=== PATIENT | female | born 1965 | race Caucasian/White ===

== ENCOUNTER 2017-07-24 11:55 | Emergency (ER) | payer BC, OTHER ==
[~2017-07-24] VITALS: Ht 170.2 cm; Wt 125.0 kg
[~2017-07-24 11:55] MED LIST: FURO-85 PO; INSU1INJ16 SC; INSU1INJ16 SQ; INSU1INJ17 SQ; INSU70IN2 SC; PRLSR20 PO
[2017-07-24 12:02] VITALS: TEMP 37.2; Ht 170.2 cm; Wt 125.0 kg
[2017-07-24] MEDS ORDERED: MoRPHine SULFATE 10 MG/ML CARP/VIAL IM STA (12:22)
--- NOTE | 2017-07-24 13:34 | EMERGENCY ROOM VISIT NOTE ---
ED Visit Note First contact with patient: 12:12 CHIEF COMPLAINT: "Back pain". HISTORY OF PRESENT ILLNESS: This 51-year-old female patient presents to the emergency department via private vehicle accompanied by male complaining of pain in the low back which began . The pain was gradual in onset, is now constant and worse with movement. The patient notes the pain as sharp and a 10/10. The patient states that she was recently admitted Wednesday night to [facility] to rule out problems with her heart. She notes that she had an echocardiogram which was normal and CT scans. She states that she thinks that may be from laying in the gurney she now has low back pain. The patient denies any loss of control of their bowel or bladder functions. There has been no leg numbness or weakness, and no change in sensation. No nausea or vomiting or abdominal pain. No chest pain or shortness of breath. The patient has no had prior back injuries. No dysuria or increased urinary frequency. REVIEW OF SYSTEMS: A review of systems was performed with positives and pertinent negatives listed in the history of present illness. All other systems were reviewed and are negative. ALLERGIES: None MEDICATIONS: As noted below PMH: Recent illness SOCIAL HISTORY: Patient lives locally. PHYSICAL EXAM: VITALS: Vitals are noted on the nurse's note and reviewed by myself. Vital signs stable. Stable. Afebrile. GENERAL: 51-year-old female, in no acute distress, nondiaphoretic, well- developed well-nourished. SKIN: The skin was without rashes, erythema, edema, or bruising. NECK: Supple without nuchal rigidity. No cervical spine tenderness. No paraspinous muscle tenderness. HEART: Regular rate and rhythm without murmurs gallops or rubs. LUNGS: Clear to auscultation bilaterally without wheezes, rales or rhonchi. ABDOMEN: Positive bowel sounds x 4. Normal tympanic percussion. Soft, nontender, without masses or organomegaly. Miles sign negative. MUSCULOSKELETAL: No muscle atrophy, erythema, or edema noted of the back. There is no tenderness over the lumbar spinous processes. There is are tenderness over the paraspinous muscles to the left. There is no tenderness over the thoracic spine or paraspinous muscles. There are left inferior lumbar muscle spasms present. The patient is slow to move around with maximum tenderness with left inferior lumbar paraspinous musculature. NEURO: Deep tendon reflexes 2+ in the lower extremities. Strength 5/5 and equal in the bilateral lower extremities. EMERGENCY DEPARTMENT COURSE: Patient was seen and evaluated as above. She presents to us today with low back pain. She is nontoxic on exam. She states that she is here looking for pain relief secondary to her back pain. She believes it is from laying a hospital bed for 2 days. This certainly sounds reasonable as her pain is reproducible on exam with tenderness in the left lower paraspinous musculature. There is no abdominal pain or urinary symptoms. She had a full workup for her heart just 2 days ago. She was offered imaging as well as blood work but decided to manage just the pain at this time. She was given morphine IM. She was reevaluated and feeling better. She appears stable from patient management. She'll be given a short prescription for oxycodone and is to observe conservative measures and follow with her family doctor or return if worsening. She was educated upon management, educated upon worrisome symptoms in which to return, had questions answered prior to discharge , and was discharged home in good condition. The narcotics were chosen as she has already used [id number] medicine without relief. In evaluation treatment this patient the following differential diagnoses were obtained: Lumbar strain, fracture, dislocation, AAA, abdominal etiologies, cauda equina syndrome, among others. No red flags in the [place] drug monitoring system. Problem List Medical Problems: (1) Benign hypertension Status: Chronic (2) Cholecystectomy Status: Resolved (3) Diabetes mellitus type 2 Status: Chronic (4) Exchange of intraocular lens Status: Resolved (5) Gastroesophageal reflux disease Status: Chronic (6) History of - section Status: Resolved (7) History of - tubal ligation Status: Resolved Current/Historical Medications Scheduled Insulin Human NPH (Novolin N), 34 UNITS SQ QAM Insulin Human NPH (Novolin N), 46 UNITS SQ HS Insulin Human Regular (Novolin R), 29 UNITS SQ QAM Insulin Human Regular (Novolin R), 22 UNITS SQ DAILY@1200 Insulin Human Regular (Novolin R), 20 UNITS SQ HS Metoprolol Tartrate (Lopressor), 50 MG PO BID Omeprazole (Prilosec), 20 MG PO DAILY Scheduled PRN Oxycodone Ir (Roxicodone Ir), 1-2 TAB PO Q4H PRN for Pain Allergies Coded Allergies: No Known Allergies (Verified , 07/24/17) Vital Signs Date Time Temp Pulse Resp B/P (MAP) Pulse Ox O2 Delivery O2 Flow Rate FiO2 07/24/17 13:41 79 18 122/68 92 Room Air 07/24/17 12:02 37.2 84 18 101/61 97 Room Air Medications Administered Medications (Trade) Dose Ordered Sig/Santos Route Start Time Stop Time Status Last Admin Dose Admin Morphine Sulfate (MoRPHine SULFATE INJ) 10 mg NOW STAT IM 07/24/17 12:22 07/24/17 12:23 DC 07/24/17 12:32 10 MG Departure Information Impression Primary Impression: Strain of lumbar region Dispostion Home / Self-Care Condition GOOD Prescriptions Oxycodone Ir (Roxicodone Ir) 5 Mg Tab 1-2 TAB PO Q4H Y for Pain, #18 TAB For Initial Treatment Prov: Joaquim Connolly PA-C 07/24/17 Referrals Yosavny Sotomayor M.D.([facility]) (PCP) Patient Instructions My [facility] Additional Instructions You have been treated in the Emergency Department for Back Pain. You have received pain medicine in the emergency department which impairs your ability to operate a vehicle. It is illegal for you to drive after receiving these medicines. You have been prescribed Oxy IR to be used for pain control. This is a narcotic medication. You cannot drive or consume alcohol while on this medicine. This medicine should only be used for pain that cannot be controlled with over-the- counter pain medicines. For pain control, you can use the following [id number]-ebtbswl medicines: - Regular strength (325mg/tab) Tylenol (acetaminophen) 2 tabs every 4-6 hours as needed. Do not exceed 12 tablets in a 24 hour period. Avoid taking more than 3 grams (3000 mg) of Tylenol per day. This includes any other sources of acetaminophen you may take on a regular basis. - Regular strength (200 mg/tab) Advil (ibuprofen) 1-2 tabs every 4-6 hours as needed. Do not exceed a dose of 3200 mg per day. (if no kidney problems) If this is an acute injury, ice can be applied to the area of pain for the first 3 days to help decrease pain and inflammation. After the first 3 days, a heating pad can be used over the area for continued soothing relief. You should schedule a follow-up appointment in 2-3 days with your Primary Care Provider for further evaluation and treatment of your back pain. Return to the Emergency Department if your current symptoms worsen despite treatment course outlined above, or if you develop any of the following symptoms : intractable pain despite aforementioned treatment course, loss of control of your bowel or bladder, numbness or tingling in your groin, or development of a fever.
[2017-07-24] MEDS ORDERED: OXYC1TAB3 PO (13:35)
[2017-07-24 13:41] VITALS: BP 122/68; PULSE 79; O2SAT 92
[2017-07-27] MEDS ORDERED: INSP SQ ×2 (12:16)
[2017-07-27] MEDS ORDERED: NVLRB SQ (12:16)
[2017-07-27] MEDS ORDERED: NVLNI SQ ×2 (12:16)
[2017-07-27] MEDS ORDERED: OMEP20CA9 PO (12:17)
[2017-07-27] MEDS ORDERED: METO-551 PO (12:22)
== END 2017-07-24 13:50 | disposition home or self-care (01) ==
LOC: C.EDB 11:58 → C.EDD 13:50
DX: S39.012A Strain of muscle, fascia and tendon of lower back, initial encounter (principal); X58.XXXA Exposure to other specified factors, initial encounter; I10 Essential (primary) hypertension; E11.9 Type 2 diabetes mellitus without complications; Z90.49 Acquired absence of other specified parts of digestive tract; K21.9 Gastro-esophageal reflux disease without esophagitis; Z98.51 Tubal ligation status; Z79.4 Long term (current) use of insulin; Z79.899 Other long term (current) drug therapy

== ENCOUNTER 2017-07-27 18:34 | Inpatient (IN) | payer OTHER ==
[~2017-07-27] VITALS: Ht 170.2 cm; Wt 132.3 kg
[~2017-07-27 18:34] MED LIST changes: -FURO-85 PO; +INSP SQ; -INSU1INJ16 SC; -INSU1INJ16 SQ; -INSU1INJ17 SQ; -INSU70IN2 SC; +METO-551 PO; +NVLNI SQ; +NVLRB SQ; +OMEP20CA9 PO; +OXYC1TAB3 PO; -PRLSR20 PO
[2017-07-27] MEDS ORDERED: ONDANSETRON INJ 2 MG/ML 2 ML VIAL IV STA (19:17)
[2017-07-27] MEDS ORDERED: KETOROLAC TROMETHAMINE 30 MG/ML VIAL IV STA (19:17)
[2017-07-27] MEDS ORDERED: LIDODERM (LIDOCAINE) PATCH 5% TD STA (19:17)
[2017-07-27] MEDS ORDERED: HYDROmorphone INJ 1 MG/ML SYR IV STA (19:17)
[2017-07-27] MEDS ORDERED: ALBUTEROL 0.083% NEBU SOLN 3 ML VIAL INH STA (19:17)
--- NOTE | 2017-07-27 19:25 | EMERGENCY ROOM VISIT NOTE ---
History Report prepared by Clarke: Don Trivedi Under the Supervision of: Dr. Keyshawn Nettles M.D. First contact with patient: 19:12 Chief Complaint: BACK PAIN Stated Complaint: BACK AND LEG PAINB History of Present Illness The patient is a 51 year old female who presents to the Emergency Room with complaints of worsening back pain that began on Wednesday morning, 4 days prior to arrival. The patient states that her symptoms began 7 days ago wit flu-like symptoms and a persistent cough. She went to [facility] and was negative for influenza/pneumonia. When her back pain first started she believed it was secondary to the severity of her cough. However, as of today the pain has worsened significantly and she is now experiencing the pain radiating down her legs. She came to the ED on Wednesday for the back pain and was given Morphine and an Oxycodone homepack. This prescription is gone at this time. 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 Review of Systems See HPI for pertinent positives & negatives. A total of 10 systems reviewed and were otherwise negative. Past Medical & Surgical Medical Problems: (1) Benign hypertension (2) Cholecystectomy (3) Diabetes mellitus type 2 (4) Exchange of intraocular lens (5) Gastroesophageal reflux disease (6) History of - section (7) History of - tubal ligation Family History CHF GRANDFATHER Diabetes mellitus FATHER MOTHER Hypertension FATHER GRANDFATHER [place] GRANDFATHER Social History Smoking Status: Former Smoker Marital Status: Housing Status: lives with family Occupation Status: disabled Current/Historical Medications Scheduled Insulin Human NPH (Novolin N), 34 UNITS SQ QAM Insulin Human NPH (Novolin N), 46 UNITS SQ HS Insulin Human Regular (Novolin R), 29 UNITS SQ QAM Insulin Human Regular (Novolin R), 22 UNITS SQ DAILY@1200 Insulin Human Regular (Novolin R), 28 UNITS SQ HS Levothyroxine Sodium (Levothyroxine Sodium), 125 MCG PO DAILY Losartan Potassium (Cozaar), 25 MG PO DAILY Metoprolol Tartrate (Lopressor), 50 MG PO BID Omeprazole (Prilosec), 20 MG PO DAILY Allergies Coded Allergies: No Known Allergies (Verified , 07/27/17) Physical Exam Vital Signs Date Time Temp Pulse Resp B/P (MAP) Pulse Ox O2 Delivery O2 Flow Rate FiO2 07/27/17 22:00 37.1 91 18 104/64 95 Nasal Cannula 2.0 07/27/17 21:13 92 18 123/54 92 Nasal Cannula 2.0 07/27/17 18:46 39.4 108 22 137/66 92 Room Air Physical Exam GENERAL: Patient is a healthy-appearing well-nourished female. HEAD: Normocephalic atraumatic EYES: Ocular movements intact pupils equal and react to light OROPHARYNX mucous membranes are moist no exudates present no erythema or edema present NECK: Supple no nuchal rigidity CHEST: Good equal expansion LUNGS: Clear and equal to auscultation CARDIAC: Normal S1 and S2 ABDOMEN: Soft nontender no guarding BACK: There is midline tenderness over the L5 region. No other tenderness. EXTREMITIES: No pain upon palpation normal muscle strength in all groups no clubbing cyanosis or edema. There is a walking boot over the left foot. NEURO: Patient is following commands and answering questions appropriately. Alert and oriented x3 Cranial Nerves 2-12 grossly intact Medical Decision & Procedures ER Provider Diagnostic Interpretation: CT SCAN OF THE ABDOMEN AND PELVIS WITHOUT CONTRAST CLINICAL HISTORY: Generalized pain. Possible metastatic disease. COMPARISON STUDY: No previous studies for comparison. TECHNIQUE: CT scan of the abdomen and pelvis was performed from the lung bases to the proximal femurs. Images are reviewed in the axial, sagittal, and coronal planes. IV contrast was not administered for this examination. A dose lowering technique was utilized adhering to the principles of ALARA. CT DOSE: FINDINGS: Lower chest: There are dependent atelectatic changes. Liver: The unenhanced liver is normal in size, contour, and attenuation. There is no intrahepatic biliary ductal dilatation. Gallbladder: Surgically absent Spleen: Spleen is enlarged measuring 14.8 cm. No focal masses are visualized on this noncontrast study Pancreas: Unremarkable. Adrenal glands: Unremarkable. Kidneys: No renal, ureteral, or bladder calculi are visualized. Hypodense left renal lesions cannot be further characterized but statistically represent cysts. The largest measures 21 mm. Bowel: There are no transition zones indicate bowel obstruction. There is colonic diverticulosis. There are no acute peridiverticular inflammatory changes. The appendix appears normal. Peritoneum: There is no intraperitoneal free air or abdominal ascites. Vasculature: The abdominal aorta is normal in course and caliber. Adenopathy: Retroperitoneal aortocaval lymph nodes are the upper limits of normal in size Pelvic viscera: There is a 3 cm left ovarian cyst Skeletal structures: There is is a mixed lytic and sclerotic 24 mm L4 lesion. There is an 11 mm lytic L5 lesion. As a 5 mm sclerotic lesion within the L3 vertebra. IMPRESSION: 1. No evidence of bowel obstruction. No evidence of free air 2. No renal, ureteral, or bladder calculi identified 3. Mild splenomegaly 4. 24 mm mixed lytic and sclerotic lesion within the L4 vertebra. Schmorl's node versus 11 mm lytic lesion within the L5 vertebra. 5. Normal appendix. No evidence of acute diverticulitis. Electronically signed by: Calvin Love M.D. 07/28/2017 6:38 AM Dictated Date/Time: 07/28/2017 6:29 AM (CHEST) THORAX WITHOUT CT DOSE: 2874.78 mGy.cm HISTORY: Metastatic disease. Pain. evaluation for metastatic disease TECHNIQUE: Multiaxial CT images of the chest were performed without contrast. A dose lowering technique was utilized adhering to the principles of ALARA. COMPARISON: None. FINDINGS: Mild bibasilar dependent and platelike atelectatic change. No significant pulmonary nodularity. No significant mediastinal or hilar adenopathy with a lymph node within limitations of an unenhanced scan. IMPRESSION: Scattered basilar atelectatic change. Otherwise negative CT of the chest. The above report was generated using voice recognition software. It may contain grammatical, syntax or spelling errors. Electronically signed by: Eliceo Isidro M.D. 07/28/2017 6:33 AM Dictated Date/Time: 07/28/2017 6:32 AM SINGLE VIEW CHEST CLINICAL HISTORY: Dyspnea. FINDINGS: An AP, portable, upright chest radiograph is compared to study dated 10/06/2013. The examination is degraded by portable technique and patient rotation. The cardiomediastinal silhouette is unremarkable. There are low lung lungs with bibasilar atelectasis. The lungs and pleural spaces are otherwise clear. No pneumothorax is seen. The bony thorax is grossly intact. IMPRESSION: Low lung volumes with no acute cardiopulmonary abnormality. Electronically signed by: Russell Fernandez M.D. 07/27/2017 8:01 PM Dictated Date/Time: 07/27/2017 8:[address] SCAN OF THE LUMBAR SPINE WITHOUT IV CONTRAST CLINICAL HISTORY: Low back pain. No reported history of trauma. COMPARISON STUDY: No priors. TECHNIQUE: CT scan of the lumbar spine is performed from the lower thoracic spine to the sacrum. Images are reviewed in the axial, sagittal, and coronal planes. IV contrast was not administered for this examination. A dose lowering technique was utilized adhering to the principles of ALARA. CT DOSE: 1544.79 mGy.cm FINDINGS: The skeletal structures are osteopenic. There is no evidence of fracture or malalignment involving the lumbar spine. Vertebral body height and alignment are maintained. The transverse and spinous processes are intact. There is no evidence of spondylolysis. There are large osteolytic lesions identified involving the bodies of L4 and L5. The lesion in the body of L4 measures up to 2.5 cm. There is associated cortical destruction/breakthrough involving the posterior wall of the L4 vertebral body as well as the inferior endplate. The L5 lesion extends through the superior endplate. Although indeterminant, these lesions are highly concerning for bony metastatic disease. An indeterminant 6 mm sclerotic focus is identified in the body of L3. There is mild disc space narrowing seen at L4-L5. The remaining disc spaces are preserved. There is no evidence of large disc herniation by CT. The paraspinous soft tissues are within normal limits. The visualized sacrum and bony pelvis appear intact, noting sclerotic change at the sacroiliac joints. There is mild atherosclerotic calcification of the abdominal aorta. IMPRESSION: 1. There is no fracture or malalignment identified involving the lumbar spine. 2. Large destructive bony lesions are suggested in the bodies of L4 and L5 with associated cortical breakthrough. Although nonspecific, the appearance is highly concerning for bony metastatic disease. Correlation with the patient's medical/oncological history will be required, and correlation with any prior outside imaging studies such as abdominal CT would be useful for comparison purposes. Consider follow-up with a nuclear bone scan for further assessment. Dictated: 07/27/2017 9:04 PM Transcribed: 07/27/2017 9:34 PM [email or web address] Electronically signed by: Russell Fernandez M.D. 07/27/2017 9:43 PM Dictated Date/Time: 07/27/2017 9:04 PM Laboratory Results Test 07/27/17 19:40 07/27/17 19:45 07/27/17 21:00 Immature Granulocyte % (Auto) 1.2 % White Blood Count 8.26 K/uL (4.8-10.8) Red Blood Count 3.35 M/uL (4.2-5.4) Hemoglobin 10.2 g/dL (12.0-16.0) Hematocrit 29.5 % (37-47) Mean Corpuscular Volume 88.1 fL (80-100) Mean Corpuscular Hemoglobin 30.4 pg (25-34) Mean Corpuscular Hemoglobin Concent 34.6 g/dl (32-36) Platelet Count 223 K/uL (130-400) Mean Platelet Volume 10.0 fL (7.4-10.4) Neutrophils (%) (Auto) 76.9 % Lymphocytes (%) (Auto) 12.2 % Monocytes (%) (Auto) 8.0 % Eosinophils (%) (Auto) 1.5 % Basophils (%) (Auto) 0.2 % Neutrophils # (Auto) 6.35 K/uL (1.4-6.5) Lymphocytes # (Auto) 1.01 K/uL (1.2-3.4) Monocytes # (Auto) 0.66 K/uL (0.11-0.59) Eosinophils # (Auto) 0.12 K/uL (0-0.5) Basophils # (Auto) 0.02 K/uL (0-0.2) Immature Granulocyte # (Auto) 0.10 K/uL (0.00-0.02) Prothrombin Time 9.9 SECONDS (9.0-12.0) Prothromb Time International Ratio 0.9 (0.9-1.1) Lipase 55 U/L (73-393) Procalcitonin 0.64 ng/ml (0-0.5) Influenza Type A Antigen Neg for Influ A (NEG) Influenza Type B Antigen Neg for Influ B (NEG) Urine Color YELLOW Urine Appearance CLEAR (CLEAR) Urine pH 5.5 (4.5-7.5) Urine Specific [place] 1.012 (1.000-1.030) Urine Protein 3+ (NEG) Urine Glucose (UA) TRACE (NEG) Urine Ketones NEG (NEG) Urine Occult Blood 1+ (NEG) Urine Nitrite NEG (NEG) Urine Bilirubin NEG (NEG) Urine Urobilinogen NEG (NEG) Urine Leukocyte Esterase NEG (NEG) Urine WBC (Auto) 1-5 /hpf (0-5) Urine RBC (Auto) 0-4 /hpf (0-4) Urine Hyaline Casts (Auto) 5-10 /lpf (0-5) Urine Epithelial Cells (Auto) >30 /lpf (0-5) Urine Bacteria (Auto) NEG (NEG) Medications Administered Medications (Trade) Dose Ordered Sig/Santos Route Start Time Stop Time Status Last Admin Dose Admin Lidocaine (Lidoderm Patch 5%) 1 patch NOW STAT TD 07/27/17 19:17 07/27/17 19:22 DC 07/27/17 20:02 1 PATCH Ketorolac Tromethamine (Toradol Inj) 30 mg NOW STAT IV 07/27/17 19:17 07/27/17 19:22 DC 07/27/17 20:01 30 MG Hydromorphone HCl (Dilaudid Inj) 1 mg NOW STAT IV 07/27/17 19:17 07/27/17 19:22 DC 07/27/17 20:01 1 MG Albuterol Sulfate (Ventolin 0.083% 2.5MG/3ML Neb) 2.5 mg NOW STAT INH 07/27/17 19:17 07/27/17 19:22 DC 07/27/17 20:01 2.5 MG Ondansetron HCl (Zofran Inj) 4 mg NOW STAT IV 07/27/17 19:17 07/27/17 19:23 DC 07/27/17 20:01 4 MG Sodium Chloride 1,000 ml @ 999 mls/hr Q1H1M STAT IV 07/27/17 20:29 07/27/17 21:29 DC 07/27/17 21:26 999 MLS/HR Acetaminophen (Tylenol Tab) 650 mg Q4H PRN PO 07/27/17 22:15 08/26/17 22:14 07/28/17 23:58 650 MG ED Course 1912: Past medical records reviewed. The patient was evaluated in room B4. A complete history and physical examination was performed. 2149: I discussed the case with Dr. Carl Aldana. She will evaluate the patient for further treatment. Medical Decision Differential diagnosis: Etiologies such as musculoskeletal, disc herniation, fracture, aortic disease, metastatic disease, cord compression, discitis, infection, renal colic, gastrointestinal, acute exacerbation of chronic back pain, sciatica, cauda equina, as well as others were entertained. This is a 51-year-old female who presents emergency department complaining of back pain. The patient appears to be in acute renal failure and has lytic lesions to her spine. I did discuss the case with the hospitalist service who agreed to admit the patient. Patient was in agreement with the treatment plan. Medication Reconcilliation Current Medication List: was personally reviewed by me Blood Pressure Screening Patient's blood pressure: Normal blood pressure Consults Time Called: 2139 Consulting Physician: Dr. Carl Aldana Returned Call: 2149 I discussed the case with Dr. Carl Aldana. She will evaluate the patient for further treatment. Impression Primary Impression: Acute renal failure Additional Impression: Back pain Scribe Attestation The scribe's documentation has been prepared under my direction and personally reviewed by me in its entirety. I confirm that the note above accurately reflects all work, treatment, procedures, and medical decision making performed by me. Departure Information Dispostion Being Evaluated By Hospitalist Referrals Yosvany Sotomayor M.D. ([facility]) (PCP) Patient Instructions My [facility] Problem Qualifiers Primary Impression: Acute renal failure Acute renal failure type: unspecified Qualified Codes: N17.9 - Acute kidney failure, unspecified Additional Impression: Back pain Back pain location: low back pain Chronicity: acute Back pain laterality: unspecified Sciatica presence: unspecified whether sciatica present Qualified Codes: M54.5 - Low back pain
[2017-07-27] MEDS ORDERED: LOSA1TAB PO (19:56)
[2017-07-27] MEDS ORDERED: LEVO125T5 PO (19:56)
[2017-07-27 20:02] LABS: BASO % 0.2 %; BASO ABS # 0.02 K/uL (0-0.2); EOS % 1.5 %; EOS ABS # 0.12 K/uL (0-0.5); HEMATOCRIT 29.5 % (37-47); HEMOGLOBIN 10.2 g/dL (12.0-16.0); LYMPH % 12.2 %; LYMPH ABS # 1.01 K/uL (1.2-3.4); MEAN CELL VOLUME 88.1 fL (80-100); MEAN CORPUSCULAR HEMOGLOBIN 30.4 pg (25-34); MEAN CORPUSCULAR HGB CONC 34.6 g/dl (32-36); MONO ABS # 0.66 K/uL (0.11-0.59); NEUT % 76.9 %; NEUT ABS # 6.35 K/uL (1.4-6.5); PLATELET COUNT 223 K/uL (130-400); RED CELL DISTRIBUTION WIDTH CV 14.3 % (11.5-14.5); RED CELL DISTRIBUTION WIDTH SD 46.1 fL (36.4-46.3); WHITE BLOOD COUNT 8.26 K/uL (4.8-10.8)
--- NOTE | 2017-07-27 20:02 | DIAGNOSTIC IMAGING REPORT ---
SINGLE VIEW CHEST CLINICAL HISTORY: Dyspnea. FINDINGS: An AP, portable, upright chest radiograph is compared to study dated 10/06/2013. The examination is degraded by portable technique and patient rotation. The cardiomediastinal silhouette is unremarkable. There are low lung lungs with bibasilar atelectasis. The lungs and pleural spaces are otherwise clear. No pneumothorax is seen. The bony thorax is grossly intact. IMPRESSION: Low lung volumes with no acute cardiopulmonary abnormality. Electronically signed by: Russell Fernandez M.D. 07/27/2017 8:01 PM Dictated Date/Time: 07/27/2017 8:00 PM
[2017-07-27 20:21] LABS: ALBUMIN 2.2 gm/dl (3.4-5.0); CALCIUM 8.5 mg/dl (8.5-10.1); CREATININE 2.38 mg/dl (0.60-1.20); POTASSIUM 4.2 mmol/L (3.5-5.1)
[2017-07-27 20:24] LABS: TOTAL PROTEIN 7.5 gm/dl (6.4-8.2)
[2017-07-27] MEDS ORDERED: SODIUM CHLORIDE 0.9% 1000ML 1,000 ML IV STA (20:29)
[2017-07-27 20:43] LABS: INFLUENZA B ANTIGEN Neg for Influ B (NEG)
--- NOTE | 2017-07-27 21:34 | DIAGNOSTIC IMAGING REPORT ---
CT SCAN OF THE LUMBAR SPINE WITHOUT IV CONTRAST CLINICAL HISTORY: Low back pain. No reported history of trauma. COMPARISON STUDY: No priors. TECHNIQUE: CT scan of the lumbar spine is performed from the lower thoracic spine to the sacrum. Images are reviewed in the axial, sagittal, and coronal planes. IV contrast was not administered for this examination. A dose lowering technique was utilized adhering to the principles of ALARA. CT DOSE: 1544.79 mGy.cm FINDINGS: The skeletal structures are osteopenic. There is no evidence of fracture or malalignment involving the lumbar spine. Vertebral body height and alignment are maintained. The transverse and spinous processes are intact. There is no evidence of spondylolysis. There are large osteolytic lesions identified involving the bodies of L4 and L5. The lesion in the body of L4 measures up to 2.5 cm. There is associated cortical destruction/breakthrough involving the posterior wall of the L4 vertebral body as well as the inferior endplate. The L5 lesion extends through the superior endplate. Although indeterminant, these lesions are highly concerning for bony metastatic disease. An indeterminant 6 mm sclerotic focus is identified in the body of L3. There is mild disc space narrowing seen at L4-L5. The remaining disc spaces are preserved. There is no evidence of large disc herniation by CT. The paraspinous soft tissues are within normal limits. The visualized sacrum and bony pelvis appear intact, noting sclerotic change at the sacroiliac joints. There is mild atherosclerotic calcification of the abdominal aorta. IMPRESSION: 1. There is no fracture or malalignment identified involving the lumbar spine. 2. Large destructive bony lesions are suggested in the bodies of L4 and L5 with associated cortical breakthrough. Although nonspecific, the appearance is highly concerning for bony metastatic disease. Correlation with the patient's medical/oncological history will be required, and correlation with any prior outside imaging studies such as abdominal CT would be useful for comparison purposes. Consider follow-up with a nuclear bone scan for further assessment. Dictated: 07/27/2017 9:04 PM Transcribed: 07/27/2017 9:34 PM [email or web address] Electronically signed by: Russell Fernandez M.D. 07/27/2017 9:43 PM Dictated Date/Time: 07/27/2017 9:04 PM
--- NOTE | 2017-07-27 22:11 | History and Physical ---
History & Physical Date & Time of Service: Jul 27, 2017 at 22:10 Chief Complaint: Back And Leg Painb Primary Care Physician: Yosvany Sotomayor M.D.([facility]) History of Present Illness Source: patient this is a 51 yo F with hx of Type 2 Dm in insulin , chronic lower ext diabetic wound , CKD stage 3 ,dyslipidemia presented to ER with complain of intractable low back pain . Pt was admitted to [facility] last week -had cardiac work up done , seen at [facility] ER on 07/24/17 for low back pain , was discharged with oral pain meds pt denies of any hx of trauma or fall yesterday her pain became un bearable had low grade fever off an on came to ER for evaluation CT of lumber spine shows ; Large destructive bony lesions are suggested in the bodies of L4 and L5. There is associated cortical breakthrough. Although nonspecific, the appearance is highly concerning for bony metastatic disease. pt denies of any recent wt loss , blood in stool , Past Medical/Surgical History Medical Problems: (1) Benign hypertension Status: Chronic (2) Cholecystectomy Status: Resolved (3) Diabetes mellitus type 2 Status: Chronic (4) Exchange of intraocular lens Status: Resolved (5) Gastroesophageal reflux disease Status: Chronic (6) History of - section Status: Resolved (7) History of - tubal ligation Status: Resolved Family History CHF GRANDFATHER Diabetes mellitus FATHER MOTHER Hypertension FATHER GRANDFATHER [place] GRANDFATHER Social History Smoking Status: Former Smoker Marital Status: Housing status: lives with family Occupational Status: disabled Immunizations History of Influenza Vaccine: Yes History of Tetanus Vaccine?: Unknown History of Pneumococcal: Unknown History of Hepatitis B Vaccine: Unknown Multi-Drug Resistant Organisms History of MDRO: No Allergies Coded Allergies: No Known Allergies (Verified , 07/27/17) Home Medications Scheduled Insulin Human NPH (Novolin N), 34 UNITS SQ QAM Insulin Human NPH (Novolin N), 46 UNITS SQ HS Insulin Human Regular (Novolin R), 29 UNITS SQ QAM Insulin Human Regular (Novolin R), 22 UNITS SQ DAILY@1200 Insulin Human Regular (Novolin R), 28 UNITS SQ HS Levothyroxine Sodium (Levothyroxine Sodium), 125 MCG PO DAILY Losartan Potassium (Cozaar), 25 MG PO DAILY Metoprolol Tartrate (Lopressor), 50 MG PO BID Omeprazole (Prilosec), 20 MG PO DAILY Review of Systems Constitutional: + fever, + chills Respiratory: No cough, No sputum, No wheezing, No shortness of breath, No dyspnea on exertion, No dyspnea at rest, No hemoptysis, No problem reported Cardiovascular: No chest pain, No orthopnea, No PND, No edema, No claudication , No palpitations, No problem reported Abdomen: No pain, No nausea, No vomiting, No diarrhea, No constipation, No GI bleeding, No problem reported Musculoskeletal: + problem reported (low back pain ; left foot chronic diabeitic ulcer wound ) Genitourinary - Female: No dysuria, No urinary frequency, No urinary urgency, No urinary incontinence, No urinary retention, No hematuria, No dysmenorrhea, No menorrhagia, No metrorrhagia, No rash, No vaginal bleeding, No vaginal discharge, No vaginal itching, No vulvodynia, No , No problem reported Neurologic: No memory loss, No paralysis, No weakness, No numbness/tingling, No vertigo, No balance problems, No problem reported Physical Exam Vital Signs Date Time Temp Pulse Resp B/P (MAP) Pulse Ox O2 Delivery O2 Flow Rate FiO2 07/27/17 21:13 92 18 123/54 92 Nasal Cannula 2.0 07/27/17 18:46 39.4 108 22 137/66 92 Room Air General Appearance: no apparent distress Head: normocephalic, atraumatic Eyes: PERRL, EOMI, sclerae normal Neck: no carotid bruits, trachea midline Respiratory/Chest: chest non-tender, lungs clear, normal breath sounds Cardiovascular: regular rate, rhythm, no edema, normal peripheral pulses Abdomen/GI: normal bowel sounds, non tender, soft Back: normal inspection, no CVA tenderness, no muscle spasm, + pertinent finding (no palpable tenderenss noted ) Extremities/Musculoskelatal: + pertinent finding (left foot bottom area 2x3 cm circular ulcer with agarwal base /serous drainage ) Neurologic/Psych: no motor/sensory deficits, alert, normal mood/affect, oriented x 3 Diagnostics Laboratory Results Results Past 24 Hours Test 07/27/17 19:40 07/27/17 19:45 07/27/17 21:00 Range/Units White Blood Count 8.26 4.8-10.8 K/uL Red Blood Count 3.35 4.2-5.4 M/uL Hemoglobin 10.2 12.0-16.0 g/dL Hematocrit 29.5 37-47 % Mean Corpuscular Volume 88.1 80-100 fL Mean Corpuscular Hemoglobin 30.4 25-34 pg Mean Corpuscular Hemoglobin Concent 34.6 32-36 g/dl Platelet Count 223 130-400 K/uL Mean Platelet Volume 10.0 7.4-10.4 fL Neutrophils (%) (Auto) 76.9 % Lymphocytes (%) (Auto) 12.2 % Monocytes (%) (Auto) 8.0 % Eosinophils (%) (Auto) 1.5 % Basophils (%) (Auto) 0.2 % Neutrophils # (Auto) 6.35 1.4-6.5 K/uL Lymphocytes # (Auto) 1.01 1.2-3.4 K/uL Monocytes # (Auto) 0.66 0.11-0.59 K/uL Eosinophils # (Auto) 0.12 0-0.5 K/uL Basophils # (Auto) 0.02 0-0.2 K/uL RDW Standard Deviation 46.1 36.4-46.3 fL RDW Coefficient of Variation 14.3 11.5-14.5 % Immature Granulocyte % (Auto) 1.2 % Immature Granulocyte # (Auto) 0.10 0.00-0.02 K/uL Sodium Level 133 136-145 mmol/L Potassium Level 4.2 3.5-5.1 mmol/L Chloride Level 101 98-107 mmol/L Carbon Dioxide Level 24 21-32 mmol/L Anion Gap 8.0 3-11 mmol/L Blood Urea Nitrogen 33 7-18 mg/dl Creatinine 2.38 0.60-1.20 mg/dl Est Creatinine Clear Calc Drug Dose 38.0 ml/min Estimated GFR () 26.7 Estimated GFR (Non- 23.0 BUN/Creatinine Ratio 13.8 10-20 Random Glucose 153 70-99 mg/dl Calcium Level 8.5 8.5-10.1 mg/dl Total Bilirubin 0.8 0.2-1 mg/dl Direct Bilirubin 0.2 0-0.2 mg/dl Aspartate Amino Transf (AST/SGOT) 24 15-37 U/L Alanine Aminotransferase (ALT/SGPT) 29 12-78 U/L Alkaline Phosphatase 82 45-117 U/L Total Protein 7.5 6.4-8.2 gm/dl Albumin 2.2 3.4-5.0 gm/dl Lipase 55 73-393 U/L Influenza Type A Antigen Neg for Influ A NEG Influenza Type B Antigen Neg for Influ B NEG Urine Color YELLOW Urine Appearance CLEAR CLEAR Urine pH 5.5 4.5-7.5 Urine Specific [place] 1.012 1.000-1.030 Urine Protein 3+ NEG Urine Glucose (UA) TRACE NEG Urine Ketones NEG NEG Urine Occult Blood 1+ NEG Urine Nitrite NEG NEG Urine Bilirubin NEG NEG Urine Urobilinogen NEG NEG Urine Leukocyte Esterase NEG NEG Urine WBC (Auto) 1-5 0-5 /hpf Urine RBC (Auto) 0-4 0-4 /hpf Urine Hyaline Casts (Auto) 5-10 0-5 /lpf Urine Epithelial Cells (Auto) >30 0-5 /lpf Urine Bacteria (Auto) NEG NEG Diagnostic Radiology CT OF LUMBER SPINE : IMPRESSION: 1. There is no fracture or malalignment identified involving the lumbar spine. 2. Large destructive bony lesions are suggested in the bodies of L4 and L5. There is associated cortical breakthrough. Although nonspecific, the appearance is highly concerning for bony metastatic disease. Correlation with the patient's medical/oncological history will be required, and correlation with any prior outside imaging studies such as abdominal CT would be useful for comparison purposes. Consider follow-up with a nuclear bone scan for further assessment. SINGLE VIEW CHEST CLINICAL HISTORY: Dyspnea. FINDINGS: An AP, portable, upright chest radiograph is compared to study dated 10/06/2013. The examination is degraded by portable technique and patient rotation. The cardiomediastinal silhouette is unremarkable. There are low lung lungs with bibasilar atelectasis. The lungs and pleural spaces are otherwise clear. No pneumothorax is seen. The bony thorax is grossly intact. IMPRESSION: Low lung volumes with no acute cardiopulmonary abnormality. Impression Assessment and Plan FEVER /SIRS meets SIRS criteria Fever , tachycardia possible source infected lumber spine disease pt also has left foot chronic diabetic wound empiric abx with Vancomycin /Zosyn blood culture ordered ID and ortho eval requested BACK PAIN WITH DESTRUCTIVE CHANGE IN LUMBER SPINE : CT OF LUMBER SPINE : Large destructive bony lesions are suggested in the bodies of L4 and L5. There is associated cortical breakthrough. Although nonspecific, the appearance is highly concerning for bony metastatic disease. ortho eval requested pain control CT abdomen /pelvis and Chest to assess for malignancy ( non contrast study due to MARK ANTHONY ) CEA level ordered MARK ANTHONY ON CKD STAGE 3 : Baseline Cr 1.6 on 09/30/16 iv fluids /hold Losartan monitor BMP nephrology eval requested Type 2 DM Insulin SSI/cont basal Lantus -out pt dose Hb A1 in AM lab pharmacy consulted for glycemic management CHRONIC DIABETIC FOOT INFECTION : follows with wound clinic at [place] wound culture ordered cont on Zosyn /vancomycin Wound care consulted FULL CODE : DVT PROPHYLAXIS : high risk -back pain limited mobility possible metastatic malignancy sub q heparin can be on hold 12/24 hrs prior to any surgical procedure DISPOSITION : admit in tele will need Ortho eval hold PT /OT till cleared by Ortho Level of Care Telemetry Resuscitation Status FULL RESUSCITATION VTE Prophylaxis Given or contraindicated: Unfractionated heparin SQ
[2017-07-27] MEDS ORDERED: VANCOMYCIN INJ 500 MG in SODIUM CHLORIDE 0.9% 250ML 250 ML IV STA (22:13)
[2017-07-27] MEDS ORDERED: DEXTROSE 50% 50 ML SYR IV PRN ×2 (22:15→22:45)
[2017-07-27] MEDS ORDERED: POLYETHYLENE (MIRALAX) 17 GM PACK PO PRN (22:15)
[2017-07-27] MEDS ORDERED: VANCOMYCIN CONSULT ACTIVE PRN ×2 (22:15)
[2017-07-27] MEDS ORDERED: GLUCOSE 10 TABS/TUBE PO PRN ×2 (22:15→22:45)
[2017-07-27] MEDS ORDERED: ONDANSETRON INJ 2 MG/ML 2 ML VIAL IV PRN (22:15)
[2017-07-27] MEDS ORDERED: GLUCAGON FOR INJ 1 MG VIAL SQ PRN ×2 (22:15→22:45)
[2017-07-27] MEDS ORDERED: GLUCOSE 40% GEL 15 GM TUBE PO PRN ×2 (22:15→22:45)
[2017-07-27] MEDS ORDERED: ALUMINUM/MAGNESIUM/SIMETH (MAALOX MAX) 30 ML UDC PO PRN (22:15)
[2017-07-27] MEDS ORDERED: PIPERACILL/TAZOBAC CONSULT ACTIVE PRN ×2 (22:15)
[2017-07-27] MEDS ORDERED: MAGNESIUM HYDROXIDE SUSP 30 ML UDC PO PRN (22:15)
[2017-07-27] MEDS ORDERED: PIPERACILLIN/TAZOBACTAM 4.5 GM/100ML D5W IV STA (22:22)
[2017-07-27] MEDS ORDERED: VANCOMYCIN INJ 2,500 MG in SODIUM CHLORIDE 0.9% 500ML 500 ML IV STA (22:22)
[2017-07-27 22:28] LABS: INR 0.9 (0.9-1.1)
[2017-07-27] MEDS ORDERED: HYDROmorphone INJ 1 MG/ML SYR IV PRN (22:30)
[2017-07-27] MEDS ORDERED: HYDROmorphone INJ 2 MG/ML SYR/VIAL IV PRN (22:30)
[2017-07-27] MEDS ORDERED: PHARMACY GLYCEMIC MGMT CONSULT PRN (22:52)
[2017-07-27 23:48] VITALS: BP 123/73; PULSE 88; TEMP 36.7; O2SAT 93; BMI 44.0
[2017-07-28] VITALS (13 sets, daily range): BP systolic 118–141; BP diastolic 64–74; PULSE 85–107; TEMP 36.6–36.8; O2SAT 94–98; Ht 170.2 cm; Wt 132.3 kg
[2017-07-28] MEDS ORDERED: INSULIN GLARGINE SOLOSTAR 100 UNITS/ML 3 ML PEN SC STA (00:16)
--- NOTE | 2017-07-28 00:47 | Pharmacy Progress Note ---
Pharmacy Abx Initial Consult Date of Service Jul 28, 2017. Pharmacy Dosing Scope Date of Consult: 07/27/17 Consultation requested by: Dr. Gomez Pharmacy is consulted to initiate Vanco/Zosyn IV dosing therapy, order appropriate labs and adjust drug dose/frequency. Subjective The patient is a 51 year old female admitted on Jul 27, 2017 at 22:15. Objective Height (Feet): 5 Height (Inches): 7.50 Weight (Kilograms): 118.600 Vital Signs (Past 12Hrs) Vital Signs Past 12 Hours Date Time Temp Pulse Resp B/P (MAP) Pulse Ox O2 Delivery O2 Flow Rate FiO2 07/27/17 23:21 88 18 133/79 95 Room Air 07/27/17 23:13 90 07/27/17 22:00 37.1 91 18 104/64 95 Nasal Cannula 2.0 07/27/17 21:13 92 18 123/54 92 Nasal Cannula 2.0 07/27/17 18:46 39.4 108 22 137/66 92 Room Air Lab Results (24Hrs) Laboratory Tests (24 Hours) Test 07/27/17 19:40 07/27/17 22:38 White Blood Count 8.26 K/uL (4.8-10.8) Red Blood Count 3.35 M/uL (4.2-5.4) L Hemoglobin 10.2 g/dL (12.0-16.0) L Hematocrit 29.5 % (37-47) L Mean Corpuscular Volume 88.1 fL (80-100) Mean Corpuscular Hemoglobin 30.4 pg (25-34) Mean Corpuscular Hemoglobin Concent 34.6 g/dl (32-36) Platelet Count 223 K/uL (130-400) Mean Platelet Volume 10.0 fL (7.4-10.4) Neutrophils (%) (Auto) 76.9 % Lymphocytes (%) (Auto) 12.2 % Monocytes (%) (Auto) 8.0 % Eosinophils (%) (Auto) 1.5 % Basophils (%) (Auto) 0.2 % Neutrophils # (Auto) 6.35 K/uL (1.4-6.5) Lymphocytes # (Auto) 1.01 K/uL (1.2-3.4) L Monocytes # (Auto) 0.66 K/uL (0.11-0.59) H Eosinophils # (Auto) 0.12 K/uL (0-0.5) Basophils # (Auto) 0.02 K/uL (0-0.2) Procalcitonin 0.64 ng/ml (0-0.5) H Lactic Acid Level 0.7 mmol/L (0.4-2.0) Micro Results Date/Time Source Procedure Growth Status 07/27/17 22:38 Blood Blood Culture Pending Received 07/27/17 22:24 Blood Blood Culture Pending Received 07/28/17 00:10 Nasal MRSA DNA Surveillance Screen Pending Received 07/28/17 00:10 Ulcer Foot Gram Stain Pending Received 07/28/17 00:10 Ulcer Foot Wound Culture Pending Received Risk Factors for Resistance * History of infection with a multidrug-resistant organism: Citrobacter from Assessment & Plan Assessment 51 year old female admitted with fever and s/sx of SIRS. qSOFA score of 0. Possible source of infxn is lumbar region/chronic diabetic foot infxn. Ms. Wilkins is being started on Vanco/Zosyn. Current renal fxn: Scr=2.4, eCrCl=38cc/ min. Unsure if this is an MARK ANTHONY or her baseline. Current pt population p'kinetics : t1/2=19, ke=0.0359, Vd=0.6. Plan Vancomycin: * Vanco 2500mg (21mg/kg) x1 will achieve a peak ~35mcg/mL. * No further vanco profiled at this juncture. With current renal fxn I surmise she will need to be re-dosed 19hrs after end of vanco infusion. * Will order random lvl 07/28/17 @ 0444 due to poor renal fxn * Goal lvl 15-20mcg/mL Zosyn: * Zosyn 4.5g 30min bolus * Then EI Zosyn 4.5g q8, appropriate for eCrCl>20cc/min, body habitus Pharmacy will continue to follow and will adjust dose/frequency as necessary. Thank you.
[2017-07-28] MEDS: INSULIN ASPART 100 UNITS/ML 3 ML PEN SC SCH ×6 (01:04→19:51)
[2017-07-28] MEDS: SODIUM CHLORIDE 0.9% 1000ML 1,000 ML IV SCH ×2 (01:04→11:27)
--- NOTE | 2017-07-28 01:41 | Pharmacy Progress Note ---
Glycemic Control Intl Consult Date of Service Jul 28, 2017. Scope Glycemic Pharmacist consulted by Dr Gomez on 07/27/17 for glycemic control and to write orders per [facility] inpatient glycemic control protocol Objective Weight (Kilograms): 127.500 Accuchecks BSG (last 24hrs): Test 07/27/17 19:40 07/28/17 00:24 Random Glucose 153 mg/dl (70-99) Bedside Glucose 152 mg/dl (70-90) Laboratory Data (last 24hrs) Test 07/27/17 19:40 Anion Gap 8.0 mmol/L BUN/Creatinine Ratio 13.8 Blood Urea Nitrogen 33 mg/dl Creatinine 2.38 mg/dl Potassium Level 4.2 mmol/L Sodium Level 133 mmol/L White Blood Count 8.26 K/uL Red Blood Count 3.35 M/uL Hemoglobin 10.2 g/dL Hematocrit 29.5 % Mean Corpuscular Volume 88.1 fL Mean Corpuscular Hemoglobin 30.4 pg Mean Corpuscular Hemoglobin Concent 34.6 g/dl Platelet Count 223 K/uL Mean Platelet Volume 10.0 fL Neutrophils (%) (Auto) 76.9 % Lymphocytes (%) (Auto) 12.2 % Monocytes (%) (Auto) 8.0 % Eosinophils (%) (Auto) 1.5 % Basophils (%) (Auto) 0.2 % Neutrophils # (Auto) 6.35 K/uL Lymphocytes # (Auto) 1.01 K/uL Monocytes # (Auto) 0.66 K/uL Eosinophils # (Auto) 0.12 K/uL Basophils # (Auto) 0.02 K/uL Recent Pertinent Medications Outpatient Anti-diabetic Regimen: * NPH: 34u QAM & 46u QHS, Regular: 29u QAM, 22u Noon, 28u QHS. CF of 10, no carb ratio. * A1c = 8.8 % 09/16/11 Risk Factors for Insulin Resistance: * Infection Assessment & Plan ASSESSMENT: * Ms. Wilkins is a 51yo F with no previous glycemic data. She receives roughly 159u/D. Previous A1C is 8.8 from 2011. A1C ordered for 07/28/17 @ 0444. She p/w a fever/SIRS. Possible sources of infxn are the lumbar region or a chronic diabetic foot infxn. I spoke with the admitting RN, AM NPH dose was administered. PLAN FOR INPATIENT GLYCEMIC CONTROL: * Basal insulin with LANTUS 40u x1 * Correctional Insulin with NOVOLOG per scale ACHS * Goal Range: Low 140 mg/dL - High 180 mg/dL * Correction Factor: 10 mg/dL/unit * Nutritional / Prandial insulin per carb ratio of 1 unit per 3 grams CHO consumed * Please note that the plan above was derived based on current level of insulin resistance and hospital stress. These recommendations are appropriate for inpatient admission only. Plan of care upon discharge will need to be reassessed to avoid potential outpatient hypo/hyperglycemia. Thank you.
[2017-07-28] MEDS: OXYCODONE/ACETAMINOPHEN 5-325 TAB PO PRN ×4 (03:32→17:29)
[2017-07-28] MEDS: PIPERACILL/TAZOBAC IV 4.5 GM in DEXTROSE 5% 100ML 100 ML IV SCH ×3 (04:19→19:45)
[2017-07-28] MEDS: HEPARIN SOD 5000 UNIT/0.5 ML CARP SQ SCH ×3 (05:19→19:47)
[2017-07-28 05:29] LABS: HEMATOCRIT 25.4 % (37-47); HEMOGLOBIN 8.4 g/dL (12.0-16.0); MEAN CELL VOLUME 88.8 fL (80-100); MEAN CORPUSCULAR HEMOGLOBIN 29.4 pg (25-34); MEAN CORPUSCULAR HGB CONC 33.1 g/dl (32-36); MEAN PLATELET VOLUME 9.3 fL (7.4-10.4); PLATELET COUNT 203 K/uL (130-400); RED CELL DISTRIBUTION WIDTH CV 14.7 % (11.5-14.5); RED CELL DISTRIBUTION WIDTH SD 47.7 fL (36.4-46.3); WHITE BLOOD COUNT 8.16 K/uL (4.8-10.8)
[2017-07-28 06:01] LABS: ALBUMIN 1.8 gm/dl (3.4-5.0); CALCIUM 7.6 mg/dl (8.5-10.1); CREATININE 2.47 mg/dl (0.60-1.20); POTASSIUM 3.5 mmol/L (3.5-5.1); TOTAL PROTEIN 6.3 gm/dl (6.4-8.2)
[2017-07-28 06:18] LABS: HEMOGLOBIN A1C 8.3 % (4.5-5.6)
--- NOTE | 2017-07-28 06:35 | DIAGNOSTIC IMAGING REPORT ---
(CHEST) THORAX WITHOUT CT DOSE: 2874.78 mGy.cm HISTORY: Metastatic disease. Pain. evaluation for metastatic disease TECHNIQUE: Multiaxial CT images of the chest were performed without contrast. A dose lowering technique was utilized adhering to the principles of ALARA. COMPARISON: None. FINDINGS: Mild bibasilar dependent and platelike atelectatic change. No significant pulmonary nodularity. No significant mediastinal or hilar adenopathy with a lymph node within limitations of an unenhanced scan. IMPRESSION: Scattered basilar atelectatic change. Otherwise negative CT of the chest. The above report was generated using voice recognition software. It may contain grammatical, syntax or spelling errors. Electronically signed by: Eliceo Isidro M.D. 07/28/2017 6:33 AM Dictated Date/Time: 07/28/2017 6:32 AM
--- NOTE | 2017-07-28 06:40 | DIAGNOSTIC IMAGING REPORT ---
CT SCAN OF THE ABDOMEN AND PELVIS WITHOUT CONTRAST CLINICAL HISTORY: Generalized pain. Possible metastatic disease. COMPARISON STUDY: No previous studies for comparison. TECHNIQUE: CT scan of the abdomen and pelvis was performed from the lung bases to the proximal femurs. Images are reviewed in the axial, sagittal, and coronal planes. IV contrast was not administered for this examination. A dose lowering technique was utilized adhering to the principles of ALARA. CT DOSE: FINDINGS: Lower chest: There are dependent atelectatic changes. Liver: The unenhanced liver is normal in size, contour, and attenuation. There is no intrahepatic biliary ductal dilatation. Gallbladder: Surgically absent Spleen: Spleen is enlarged measuring 14.8 cm. No focal masses are visualized on this noncontrast study Pancreas: Unremarkable. Adrenal glands: Unremarkable. Kidneys: No renal, ureteral, or bladder calculi are visualized. Hypodense left renal lesions cannot be further characterized but statistically represent cysts. The largest measures 21 mm. Bowel: There are no transition zones indicate bowel obstruction. There is colonic diverticulosis. There are no acute peridiverticular inflammatory changes. The appendix appears normal. Peritoneum: There is no intraperitoneal free air or abdominal ascites. Vasculature: The abdominal aorta is normal in course and caliber. Adenopathy: Retroperitoneal aortocaval lymph nodes are the upper limits of normal in size Pelvic viscera: There is a 3 cm left ovarian cyst Skeletal structures: There is is a mixed lytic and sclerotic 24 mm L4 lesion. There is an 11 mm lytic L5 lesion. As a 5 mm sclerotic lesion within the L3 vertebra. IMPRESSION: 1. No evidence of bowel obstruction. No evidence of free air 2. No renal, ureteral, or bladder calculi identified 3. Mild splenomegaly 4. 24 mm mixed lytic and sclerotic lesion within the L4 vertebra. Schmorl's node versus 11 mm lytic lesion within the L5 vertebra. 5. Normal appendix. No evidence of acute diverticulitis. Electronically signed by: Calvin Love M.D. 07/28/2017 6:38 AM Dictated Date/Time: 07/28/2017 6:29 AM
[2017-07-28] MEDS ORDERED: INSULIN HUMAN REGULAR SC SCH (06:45)
[2017-07-28] MEDS: SENNA 8.6 MG TAB PO SCH (07:42)
[2017-07-28] MEDS ORDERED: VANCOMYCIN INJ 500 MG in SODIUM CHLORIDE 0.9% 250ML 250 ML IV SCH (09:00)
--- NOTE | 2017-07-28 09:11 | Progress Note ---
Medicine Progress Note Date & Time of Visit: Jul 28, 2017 at 09:04. Subjective Seen resting in bed comfortable States back pain is improved compared to yesterday Denies weakness numbness paresthesias incontinence Denies pain over the left foot where the wound is No problems with urination No loss of appetite weight loss No other symptoms Objective Last 8 Hrs Date Time Temp Pulse Resp B/P (MAP) Pulse Ox O2 Delivery O2 Flow Rate FiO2 07/28/17 07:45 98 Room Air 07/28/17 07:37 36.7 86 16 141/74 (96) 98 Room Air 07/28/17 04:00 95 Room Air 07/28/17 04:00 36.7 85 18 130/72 (91) 95 Room Air Physical Exam: General-oriented 3, speaking sentences, not in distress Head- atraumatic Eyes- PERRL, EOMI, anicteric ENT- oropharynx clear Neck- supple, no JVD, no adenopathy, surgical scar post thyroidectomy, no thyromegaly; carotids +2/2 Lungs- clear clear breath sounds bilaterally no rales wheezes Heart- regular rhythm; no murmur, normal rate Abdomen- normal bowel sounds, soft, nontender, no masses or hepatosplenomegaly Back no erythema edema warmth but positive moderate tenderness to the lower back Extremities-left foot: Active ulcer on the lateral plantar aspect open no discharge or bleeding noted no pretibial edema, no calf tenderness; peripheral pulses intact Neuro- alert, oriented x 3; no gross focal neurologic deficit Skin- warm & dry Laboratory Results: Last 24 Hours Test 07/27/17 19:40 07/27/17 19:45 07/27/17 21:00 07/27/17 22:24 White Blood Count 8.26 K/uL Red Blood Count 3.35 M/uL Hemoglobin 10.2 g/dL Hematocrit 29.5 % Mean Corpuscular Volume 88.1 fL Mean Corpuscular Hemoglobin 30.4 pg Mean Corpuscular Hemoglobin Concent 34.6 g/dl Platelet Count 223 K/uL Mean Platelet Volume 10.0 fL Neutrophils (%) (Auto) 76.9 % Lymphocytes (%) (Auto) 12.2 % Monocytes (%) (Auto) 8.0 % Eosinophils (%) (Auto) 1.5 % Basophils (%) (Auto) 0.2 % Neutrophils # (Auto) 6.35 K/uL Lymphocytes # (Auto) 1.01 K/uL Monocytes # (Auto) 0.66 K/uL Eosinophils # (Auto) 0.12 K/uL Basophils # (Auto) 0.02 K/uL RDW Standard Deviation 46.1 fL RDW Coefficient of Variation 14.3 % Immature Granulocyte % (Auto) 1.2 % Immature Granulocyte # (Auto) 0.10 K/uL Prothrombin Time 9.9 SECONDS Prothromb Time International Ratio 0.9 Sodium Level 133 mmol/L Potassium Level 4.2 mmol/L Chloride Level 101 mmol/L Carbon Dioxide Level 24 mmol/L Anion Gap 8.0 mmol/L Blood Urea Nitrogen 33 mg/dl Creatinine 2.38 mg/dl Est Creatinine Clear Calc Drug Dose 38.0 ml/min Estimated GFR () 26.7 Estimated GFR (Non- 23.0 BUN/Creatinine Ratio 13.8 Random Glucose 153 mg/dl Calcium Level 8.5 mg/dl Total Bilirubin 0.8 mg/dl Direct Bilirubin 0.2 mg/dl Aspartate Amino Transf (AST/SGOT) 24 U/L Alanine Aminotransferase (ALT/SGPT) 29 U/L Alkaline Phosphatase 82 U/L Total Protein 7.5 gm/dl Albumin 2.2 gm/dl Lipase 55 U/L Procalcitonin 0.64 ng/ml Influenza Type A Antigen Neg for Influ A Influenza Type B Antigen Neg for Influ B Urine Color YELLOW Urine Appearance CLEAR Urine pH 5.5 Urine Specific [place] 1.012 Urine Protein 3+ Urine Glucose (UA) TRACE Urine Ketones NEG Urine Occult Blood 1+ Urine Nitrite NEG Urine Bilirubin NEG Urine Urobilinogen NEG Urine Leukocyte Esterase NEG Urine WBC (Auto) 1-5 /hpf Urine RBC (Auto) 0-4 /hpf Urine Hyaline Casts (Auto) 5-10 /lpf Urine Epithelial Cells (Auto) >30 /lpf Urine Bacteria (Auto) NEG Carcinoembryonic Antigen 0.6 ng/ml Test 07/27/17 22:38 07/28/17 00:24 07/28/17 03:35 07/28/17 05:08 Lactic Acid Level 0.7 mmol/L Bedside Glucose 152 mg/dl 151 mg/dl White Blood Count 8.16 K/uL Red Blood Count 2.86 M/uL Hemoglobin 8.4 g/dL Hematocrit 25.4 % Mean Corpuscular Volume 88.8 fL Mean Corpuscular Hemoglobin 29.4 pg Mean Corpuscular Hemoglobin Concent 33.1 g/dl RDW Standard Deviation 47.7 fL RDW Coefficient of Variation 14.7 % Platelet Count 203 K/uL Mean Platelet Volume 9.3 fL Sodium Level 135 mmol/L Potassium Level 3.5 mmol/L Chloride Level 105 mmol/L Carbon Dioxide Level 22 mmol/L Anion Gap 8.0 mmol/L Blood Urea Nitrogen 32 mg/dl Creatinine 2.47 mg/dl Est Creatinine Clear Calc Drug Dose 37.8 ml/min Estimated GFR () 25.5 Estimated GFR (Non- 22.0 BUN/Creatinine Ratio 12.8 Random Glucose 184 mg/dl Estimated Average Glucose 192 mg/dl Hemoglobin A1c 8.3 % Calcium Level 7.6 mg/dl Magnesium Level 2.7 mg/dl Total Bilirubin 0.8 mg/dl Direct Bilirubin 0.2 mg/dl Aspartate Amino Transf (AST/SGOT) 15 U/L Alanine Aminotransferase (ALT/SGPT) 23 U/L Alkaline Phosphatase 68 U/L Total Protein 6.3 gm/dl Albumin 1.8 gm/dl Random Vancomycin Level 31.9 mcg/ml Date/Time Source Procedure Growth Status 07/27/17 22:38 Blood Blood Culture Pending Received 07/27/17 22:24 Blood Blood Culture Pending Received 07/28/17 00:10 Nasal MRSA DNA Surveillance Screen - Final Specimen Positive for MRSA by DNA Probe Complete 07/28/17 00:10 Ulcer Foot Gram Stain - Final Resulted 07/28/17 00:10 Ulcer Foot Wound Culture Pending Resulted Assessment & Plan 51-year-old female with history of diabetes type 2 on insulin, chronic left foot wound, hypertension, CKD stage III, resenting with low back pain with fevers. FEVER Met criteria for SIRS Possible sources include: POSSIBLE INFECTIOUS PROCESS IN THE LUMBAR SPINE L4-L5 Versus metastatic disease CT lumbar spine noted: Large destructive bony lesions are suggested in the bodies of L4 and L5. There is associated cortical breakthrough. Although nonspecific, the appearance is highly concerning for bony metastatic disease. Blood cultures pending On empiric vancomycin and Zosyn Question metastatic process, CT abdomen and chest unrevealing, thyroid cancer Orthopedic spine consulted POSSIBLE INFECTED LEFT FOOT WOUND ID consult On antibiotics as noted above Wound care consult ACUTE RENAL FAILURE ON CKD 3 Baseline creatinine 1.6, creatinine is 2.4 Likely from prerenal etiology, infection, possible contrast-induced last week's admission Continue IV NSS Nephrology consulted DIABETES TYPE 2 A1c 8.3 Hold NPH and regular Insulin sliding scale for now Glycemic control independent crop consultant HYPERTENSION Hold losartan for acute kidney injury Continue metoprolol Monitor DVT prophylaxis Heparin Full code per patient Disposition Dissipate return home when medically stable May need IV antibiotics on discharge, awaiting ID recommendations Current Inpatient Medications: Current Inpatient Medications Medications (Trade) Dose Ordered Sig/Santos Route Start Time Stop Time Status Last Admin Dose Admin Miscellaneous Information (Consult) 1 ea UD PRN N/A 07/27/17 22:15 08/26/17 22:14 Piperacillin Sod/ Tazobactam Sod 4.5 gm/Dextrose 120 ml @ 30 mls/hr Q8H IV 07/28/17 04:00 09/08/17 03:59 07/28/17 04:19 30 MLS/HR Miscellaneous Information (Consult) 1 ea UD PRN N/A 07/27/17 22:15 08/26/17 22:14 Heparin Sodium (Porcine) (Heparin Sq 5000 Unit/0.5ml) 5,000 unit Q8 SQ 07/28/17 06:00 08/27/17 05:59 07/28/17 05:19 5,000 UNIT Sodium Chloride 1,000 ml @ 100 mls/hr Q10H IV 07/28/17 00:00 08/27/17 00:00 07/28/17 01:04 100 MLS/HR Acetaminophen (Tylenol Tab) 650 mg Q4H PRN PO 07/27/17 22:15 08/26/17 22:14 Al Hydrox/Mg Hydrox/Simethicone (Maalox Max Susp) 15 ml Q4H PRN PO 07/27/17 22:15 08/26/17 22:14 Magnesium Hydroxide (Milk Of Magnesia Susp) 30 ml Q12H PRN PO 07/27/17 22:15 08/26/17 22:14 Ondansetron HCl (Zofran Inj) 4 mg Q6H PRN IV 07/27/17 22:15 08/26/17 22:14 Polyethylene (Miralax Powder Packet) 17 gm DAILY PRN PO 07/27/17 22:15 08/26/17 22:14 Glucose (Glucose Chew Tab) 4-8 Tablets 4 Tabl... UD PRN PO 07/27/17 22:15 08/26/17 22:14 Hydromorphone HCl (Dilaudid Inj) 1 mg Q6 PRN IV 07/27/17 22:30 08/10/17 22:29 Hydromorphone HCl (Dilaudid Inj) 2 mg Q8 PRN IV 07/27/17 22:30 08/10/17 22:29 Oxycodone/ Acetaminophen (Percocet 5-325mg Tab) 1 tab Q4H PRN PO 07/27/17 22:30 08/10/17 22:29 07/28/17 07:41 1 TAB Oxycodone/ Acetaminophen (Percocet 5-325mg Tab) 2 tab Q4H PRN PO 07/27/17 22:30 08/10/17 22:29 Senna (Senokot Tab) 8.6 mg QAM PO 07/28/17 09:00 08/27/17 08:59 07/28/17 07:42 8.6 MG Glucose (Glucose 40% Gel) 15-30 GRAMS 15 GRAMS... UD PRN PO 07/27/17 22:45 08/26/17 22:44 Dextrose (Dextrose 50% 50ML Syringe) 25-50ML OF 50% DW IV FOR... UD PRN IV 07/27/17 22:45 08/26/17 22:44 Glucagon (Glucagon Inj) 1 mg UD PRN SQ 07/27/17 22:45 08/26/17 22:44 Miscellaneous Information (Consult Glycemic Management Pharmacy) 1 ea UD PRN N/A 07/27/17 22:52 08/26/17 22:51 Insulin Aspart (novoLOG ASPART) SLIDING SCALE ACHS SC 07/28/17 06:45 08/27/17 06:59 07/28/17 07:47 8 UNITS Levothyroxine Sodium (Synthroid Tab) 125 mcg DAILY PO 07/28/17 09:00 08/27/17 08:59 UNV Metoprolol Tartrate (Lopressor Tab) 50 mg BID PO 07/28/17 09:00 08/27/17 08:59 UNV Non-Formulary Medication (Omeprazole (Prilosec)) 20 mg DAILY PO 07/28/17 09:00 08/27/17 08:59 UNV
--- NOTE | 2017-07-28 10:47 | Medical Consult ---
Consultation Date of Consultation: Jul 28, 2017. Attending Physician: Ruben Cavanaugh MD Reason for Consultation: Osteomyelitis History of Present Illness 51-year-old female known to me from previous care of diabetic foot infection, currently being cared for [facility] for diabetic foot ulcer left lateral foot, who late last week developed acute onset of excruciating low back pain, not associated with fever, chills, or other systemic complaints. She has had no signs of worsening left foot infection. She was seen at a local emergency room and discharged home, but pain worsen, becoming 10/10 in intensity, and she came to our emergency department where imaging of the spine showed large lumbar destructive lesion, most concerning for metastatic neoplasm, but infectious process could not be ruled out. She only over the last 24 hours has had some chills with low-grade fever. A has history of thyroid cancer several years ago. Past Medical/Surgical History Medical Problems: (1) Acute renal failure Status: Acute (2) Back pain Status: Acute (3) Strain of lumbar region Status: Acute Medical Problems: (1) Benign hypertension (2) Cholecystectomy (3) Diabetes mellitus type 2 (4) Exchange of intraocular lens (5) Gastroesophageal reflux disease (6) History of - section (7) History of - tubal ligation Family History CHF GRANDFATHER Diabetes mellitus FATHER MOTHER Hypertension FATHER GRANDFATHER [place] GRANDFATHER Social History Smoking Status: Never Smoker Marital Status: Housing Status: lives with family Occupation Status: disabled Allergies Coded Allergies: No Known Allergies (Verified , 07/27/17) Current Inpatient Medications Current Inpatient Medications Medications (Trade) Dose Ordered Sig/Santos Route Start Time Stop Time Status Last Admin Dose Admin Miscellaneous Information (Consult) 1 ea UD PRN N/A 07/27/17 22:15 08/26/17 22:14 Piperacillin Sod/ Tazobactam Sod 4.5 gm/Dextrose 120 ml @ 30 mls/hr Q8H IV 07/28/17 04:00 09/08/17 03:59 07/28/17 04:19 30 MLS/HR Miscellaneous Information (Consult) 1 ea UD PRN N/A 07/27/17 22:15 08/26/17 22:14 Heparin Sodium (Porcine) (Heparin Sq 5000 Unit/0.5ml) 5,000 unit Q8 SQ 07/28/17 06:00 3/23/18 05:59 07/28/17 05:19 5,000 UNIT Sodium Chloride 1,000 ml @ 100 mls/hr Q10H IV 07/28/17 00:00 08/27/17 00:00 07/28/17 01:04 100 MLS/HR Acetaminophen (Tylenol Tab) 650 mg Q4H PRN PO 07/27/17 22:15 08/26/17 22:14 Al Hydrox/Mg Hydrox/Simethicone (Maalox Max Susp) 15 ml Q4H PRN PO 07/27/17 22:15 08/26/17 22:14 Magnesium Hydroxide (Milk Of Magnesia Susp) 30 ml Q12H PRN PO 07/27/17 22:15 08/26/17 22:14 Ondansetron HCl (Zofran Inj) 4 mg Q6H PRN IV 07/27/17 22:15 08/26/17 22:14 Polyethylene (Miralax Powder Packet) 17 gm DAILY PRN PO 07/27/17 22:15 08/26/17 22:14 Glucose (Glucose Chew Tab) 4-8 Tablets 4 Tabl... UD PRN PO 07/27/17 22:15 08/26/17 22:14 Hydromorphone HCl (Dilaudid Inj) 1 mg Q6 PRN IV 07/27/17 22:30 08/10/17 22:29 Hydromorphone HCl (Dilaudid Inj) 2 mg Q8 PRN IV 07/27/17 22:30 08/10/17 22:29 Oxycodone/ Acetaminophen (Percocet 5-325mg Tab) 1 tab Q4H PRN PO 07/27/17 22:30 08/10/17 22:29 07/28/17 07:41 1 TAB Oxycodone/ Acetaminophen (Percocet 5-325mg Tab) 2 tab Q4H PRN PO 07/27/17 22:30 08/10/17 22:29 Senna (Senokot Tab) 8.6 mg QAM PO 07/28/17 09:00 08/27/17 08:59 07/28/17 07:42 8.6 MG Glucose (Glucose 40% Gel) 15-30 GRAMS 15 GRAMS... UD PRN PO 07/27/17 22:45 08/26/17 22:44 Dextrose (Dextrose 50% 50ML Syringe) 25-50ML OF 50% DW IV FOR... UD PRN IV 07/27/17 22:45 08/26/17 22:44 Glucagon (Glucagon Inj) 1 mg UD PRN SQ 07/27/17 22:45 08/26/17 22:44 Miscellaneous Information (Consult Glycemic Management Pharmacy) 1 ea UD PRN N/A 07/27/17 22:52 08/26/17 22:51 Insulin Aspart (novoLOG ASPART) SLIDING SCALE ACHS SC 07/28/17 06:45 08/27/17 06:59 07/28/17 07:47 8 UNITS Levothyroxine Sodium (Synthroid Tab) 125 mcg DAILYBB PO 07/28/17 11:00 08/27/17 10:59 Metoprolol Tartrate (Lopressor Tab) 50 mg BID PO 07/28/17 09:00 08/27/17 08:59 Pantoprazole Sodium (Protonix Tab) 40 mg DAILY PO 07/28/17 09:00 08/27/17 08:59 Review of Systems Constitutional: + chills Eyes: No problem reported ENT: No problem reported Respiratory: No problem reported Cardiovascular: No problem reported Abdomen: No problem reported Musculoskeletal: + problem reported (Back pain) Genitourinary - Female: No problem reported Neurologic: No problem reported Psychiatric: No problem reported Endocrine: No problem reported Hematologic / Lymphatic: No problem reported Integumentary: + new/changing skin lesions Allergic / Immunologic: No problem reported Physical Exam Date Time Temp Pulse Resp B/P (MAP) Pulse Ox O2 Delivery O2 Flow Rate FiO2 07/28/17 07:45 98 Room Air 07/28/17 07:37 36.7 86 16 141/74 (96) 98 Room Air 07/28/17 04:00 95 Room Air 07/28/17 04:00 36.7 85 18 130/72 (91) 95 Room Air 07/27/17 23:48 36.7 88 18 123/73 93 Room Air 07/27/17 23:21 88 18 133/79 95 Room Air 07/27/17 23:13 90 07/27/17 22:00 37.1 91 18 104/64 95 Nasal Cannula 2.0 07/27/17 21:13 92 18 123/54 92 Nasal Cannula 2.0 07/27/17 18:46 39.4 108 22 137/66 92 Room Air General Appearance: WD/WN, no apparent distress Head: normocephalic, atraumatic Eyes: normal inspection, EOMI, sclerae normal ENT: normal ENT inspection, hearing grossly normal, pharynx normal Neck: supple, no adenopathy, thyroid normal, trachea midline Respiratory/Chest: chest non-tender, lungs clear, normal breath sounds, no respiratory distress Cardiovascular: regular rate, rhythm, no gallop, no murmur Abdomen/GI: normal bowel sounds, non tender, soft, no organomegaly Back: normal inspection, + pertinent finding (Tenderness over lumbar area) Extremities/Musculoskelatal: no calf tenderness, normal capillary refill, non- tender Neurologic/Psych: alert, normal mood/affect, oriented x 3 Skin: normal color, warm/dry, no rash, + pertinent finding (Left lateral foot ulcer without purulence or surrounding erythema) Lymphatic: no adenopathy Laboratory Results Date/Time Source Procedure Growth Status 07/27/17 22:38 Blood Blood Culture Pending Received 07/27/17 22:24 Blood Blood Culture Pending Received 07/28/17 00:10 Nasal MRSA DNA Surveillance Screen - Final Specimen Positive for MRSA by DNA Probe Complete 07/28/17 00:10 Ulcer Foot Gram Stain - Final Resulted 07/28/17 00:10 Ulcer Foot Wound Culture Pending Resulted Last 24 Hours Test 07/27/17 19:40 07/27/17 19:45 07/27/17 21:00 07/27/17 22:24 White Blood Count 8.26 K/uL Red Blood Count 3.35 M/uL Hemoglobin 10.2 g/dL Hematocrit 29.5 % Mean Corpuscular Volume 88.1 fL Mean Corpuscular Hemoglobin 30.4 pg Mean Corpuscular Hemoglobin Concent 34.6 g/dl Platelet Count 223 K/uL Mean Platelet Volume 10.0 fL Neutrophils (%) (Auto) 76.9 % Lymphocytes (%) (Auto) 12.2 % Monocytes (%) (Auto) 8.0 % Eosinophils (%) (Auto) 1.5 % Basophils (%) (Auto) 0.2 % Neutrophils # (Auto) 6.35 K/uL Lymphocytes # (Auto) 1.01 K/uL Monocytes # (Auto) 0.66 K/uL Eosinophils # (Auto) 0.12 K/uL Basophils # (Auto) 0.02 K/uL RDW Standard Deviation 46.1 fL RDW Coefficient of Variation 14.3 % Immature Granulocyte % (Auto) 1.2 % Immature Granulocyte # (Auto) 0.10 K/uL Prothrombin Time 9.9 SECONDS Prothromb Time International Ratio 0.9 Sodium Level 133 mmol/L Potassium Level 4.2 mmol/L Chloride Level 101 mmol/L Carbon Dioxide Level 24 mmol/L Anion Gap 8.0 mmol/L Blood Urea Nitrogen 33 mg/dl Creatinine 2.38 mg/dl Est Creatinine Clear Calc Drug Dose 38.0 ml/min Estimated GFR () 26.7 Estimated GFR (Non- 23.0 BUN/Creatinine Ratio 13.8 Random Glucose 153 mg/dl Calcium Level 8.5 mg/dl Total Bilirubin 0.8 mg/dl Direct Bilirubin 0.2 mg/dl Aspartate Amino Transf (AST/SGOT) 24 U/L Alanine Aminotransferase (ALT/SGPT) 29 U/L Alkaline Phosphatase 82 U/L Total Protein 7.5 gm/dl Albumin 2.2 gm/dl Lipase 55 U/L Procalcitonin 0.64 ng/ml Influenza Type A Antigen Neg for Influ A Influenza Type B Antigen Neg for Influ B Urine Color YELLOW Urine Appearance CLEAR Urine pH 5.5 Urine Specific [place] 1.012 Urine Protein 3+ Urine Glucose (UA) TRACE Urine Ketones NEG Urine Occult Blood 1+ Urine Nitrite NEG Urine Bilirubin NEG Urine Urobilinogen NEG Urine Leukocyte Esterase NEG Urine WBC (Auto) 1-5 /hpf Urine RBC (Auto) 0-4 /hpf Urine Hyaline Casts (Auto) 5-10 /lpf Urine Epithelial Cells (Auto) >30 /lpf Urine Bacteria (Auto) NEG Carcinoembryonic Antigen 0.6 ng/ml Test 07/27/17 22:38 07/28/17 00:24 07/28/17 03:35 07/28/17 05:08 Lactic Acid Level 0.7 mmol/L Bedside Glucose 152 mg/dl 151 mg/dl White Blood Count 8.16 K/uL Red Blood Count 2.86 M/uL Hemoglobin 8.4 g/dL Hematocrit 25.4 % Mean Corpuscular Volume 88.8 fL Mean Corpuscular Hemoglobin 29.4 pg Mean Corpuscular Hemoglobin Concent 33.1 g/dl RDW Standard Deviation 47.7 fL RDW Coefficient of Variation 14.7 % Platelet Count 203 K/uL Mean Platelet Volume 9.3 fL Sodium Level 135 mmol/L Potassium Level 3.5 mmol/L Chloride Level 105 mmol/L Carbon Dioxide Level 22 mmol/L Anion Gap 8.0 mmol/L Blood Urea Nitrogen 32 mg/dl Creatinine 2.47 mg/dl Est Creatinine Clear Calc Drug Dose 37.8 ml/min Estimated GFR () 25.5 Estimated GFR (Non- 22.0 BUN/Creatinine Ratio 12.8 Random Glucose 184 mg/dl Estimated Average Glucose 192 mg/dl Hemoglobin A1c 8.3 % Calcium Level 7.6 mg/dl Magnesium Level 2.7 mg/dl Total Bilirubin 0.8 mg/dl Direct Bilirubin 0.2 mg/dl Aspartate Amino Transf (AST/SGOT) 15 U/L Alanine Aminotransferase (ALT/SGPT) 23 U/L Alkaline Phosphatase 68 U/L Total Protein 6.3 gm/dl Albumin 1.8 gm/dl Random Vancomycin Level 31.9 mcg/ml Patient Name: TANIA YOUSIF Unit Number: [id number] Dictated: [id number] Transcribed: 07/27/172133 Printed Date/Time: [~ rep prt dt]/[~ rep prt tm] [~ rep ct labl] - [~ rep ct ivnm] [facility] Radiology Department [place], [place] [id number] Dictated: [id number] Transcribed: 07/27/172133 Printed Date/Time: [~ rep prt dt]/[~ rep prt tm] [~ rep ct labl] - [~ rep ct ivnm] CT SCAN OF THE LUMBAR SPINE WITHOUT IV CONTRAST CLINICAL HISTORY: Low back pain. No reported history of trauma. COMPARISON STUDY: No priors. TECHNIQUE: CT scan of the lumbar spine is performed from the lower thoracic spine to the sacrum. Images are reviewed in the axial, sagittal, and coronal planes. IV contrast was not administered for this examination. A dose lowering technique was utilized adhering to the principles of ALARA. CT DOSE: 1544.79 mGy.cm FINDINGS: The skeletal structures are osteopenic. There is no evidence of fracture or malalignment involving the lumbar spine. Vertebral body height and alignment are maintained. The transverse and spinous processes are intact. There is no evidence of spondylolysis. There are large osteolytic lesions identified involving the bodies of L4 and L5. The lesion in the body of L4 measures up to 2.5 cm. There is associated cortical destruction/breakthrough involving the posterior wall of the L4 vertebral body as well as the inferior endplate. The L5 lesion extends through the superior endplate. Although indeterminant, these lesions are highly concerning for bony metastatic disease. An indeterminant 6 mm sclerotic focus is identified in the body of L3. There is mild disc space narrowing seen at L4-L5. The remaining disc spaces are preserved. There is no evidence of large disc herniation by CT. The paraspinous soft tissues are within normal limits. The visualized sacrum and bony pelvis appear intact, noting sclerotic change at the sacroiliac joints. There is mild atherosclerotic calcification of the abdominal aorta. IMPRESSION: 1. There is no fracture or malalignment identified involving the lumbar spine. 2. Large destructive bony lesions are suggested in the bodies of L4 and L5 with associated cortical breakthrough. Although nonspecific, the appearance is highly concerning for bony metastatic disease. Correlation with the patient's medical/oncological history will be required, and correlation with any prior outside imaging studies such as abdominal CT would be useful for comparison purposes. Consider follow-up with a nuclear bone scan for further assessment. Dictated: 07/27/2017 9:04 PM Transcribed: 07/27/2017 9:34 PM [email or web address] Electronically signed by: Russell Fernandez M.D. 07/27/2017 9:43 PM Dictated Date/Time: 07/27/2017 9:04 PM The status of this report is Signed. Draft = Not yet reviewed or approved by Radiologist. Signed = Reviewed and approved by Radiologist. <AttendingPhy></AttendingPhy> <FamilyPhy>Rob Dodge M.D.</FamilyPhy> < PrimaryPhy>Yosvany Sotomayor M.D.(BRICE)</PrimaryPhy> <UnitNumber>[id number]</ UnitNumber> <VisitNumber>[id number]</VisitNumber> <PatientName>TANIA YOUSIF Mary< /PatientName> <DateOfBirth>1965</DateOfBirth> <Location>[facility]</Location> < ServiceDate>07/27/17</ServiceDate> <MNE>ESINDI</MNE> <OrderingPhy>Keyshawn Nettles MD</OrderingPhy> <OrderingPhyMNE>f rep ord dr pandya</OrderingPhyMNE> < DictatingPhyMNE>f rep dict dr pandya</DictatingPhyMNE> <CCListMNE>f rep ct mne</ CCListMNE> <AdmittingPhyMNE>f pt admit dr pandya</AdmittingPhyMNE> <AttendingPhyMNE >f pt attend dr pandya</AttendingPhyMNE> <ConsultingPhyMNE>f pt consult dr pandya</ConsultingPhyMNE> <FamilyPhyMNE>f pt fam dr pandya</FamilyPhyMNE> <OtherPhyMNE>f pt other dr pandya</OtherPhyMNE> < PrimaryPhyMNE>f pt prim care dr pandya</PrimaryPhyMNE> <ReferringPhyMNE>f pt referring dr pandya</ReferringPhyMNE> Assessment & Plan 51-year-old diabetic female with acute onset of back pain without other recent systemic complaints, with large destructive lesion involving L4 and L5. Appearance most consistent with neoplastic process, but agree that infection cannot be totally ruled out. Given positive MRSA screen and potential pathogens , agree with current use of vancomycin and Zosyn pending further culture results. Await orthopedic consultation regarding need for biopsy. Will follow.
--- NOTE | 2017-07-28 11:17 | Pharmacy Progress Note ---
Pharmacy Abx Dose Short Note Date of Service Jul 28, 2017. Assessment & Plan Assessment * 51 year old female admitted for chills, fever, severe back pain. * Broad-spectrum ABX therapy initiated for dx of sepsis possibly from L diabetic foot infxn and there is also question of infectious process of lumbar spine * ID has seen this patient and recommended continuing Vanco + Zosyn in the interim * Patient dose have MARK ANTHONY, SCr 2.47 today (baseline ~1.6 per provider); U.O. not recorded * Tmax 39.4 last 24 hrs; VSS * No growth yet in CX's; MRSA nasal swab was positive Plan Vancomycin * 2500mg (~21mg/kg) load given at 2315 last night * Random level drawn this AM ~5 hrs after load = 31.9 indicating Vd adequately filled with load * Estimated half-life ~19+ hours, therefore will begin maintenance dose ~19-20 hours after this level was drawn * Maint dose: 1750mg (13.7mg/kg) IV Q 24 hours * Goal trough level for sepsis possible bone/joint infxn : 15 to 20 mcg/mL * Will check trough level w/ 2nd maintenance dose given uncertain renal clearance and body habitus Zosyn * eCrCl > 20cc/min; BMI > 35; continue 4.5gm ext-infusion Q 8 hours Pharmacy will continue to follow and will adjust dose/frequency as necessary. Thank you.
[2017-07-28] MEDS: LEVOTHYROXINE 125 MCG TAB PO SCH (11:23)
[2017-07-28] MEDS: METOPROLOL TARTRATE 50 MG TAB PO SCH ×2 (11:23→19:50)
[2017-07-28] MEDS: PANTOprazole SOD 40 MG TAB PO SCH (11:23)
[2017-07-28] MEDS ORDERED: INSULIN GLARGINE SOLOSTAR 100 UNITS/ML 3 ML PEN SC ONE (11:30)
--- NOTE | 2017-07-28 11:37 | Pharmacy Progress Note ---
Glycemic Control Progress Note Date of Service Jul 28, 2017. Scope Glycemic Pharmacist consulted for glycemic control to write orders per [facility] inpatient glycemic control protocol. Objective Accuchecks BSG (last 24hrs): Test 07/27/17 19:40 07/28/17 00:24 07/28/17 03:35 07/28/17 05:08 Random Glucose 153 mg/dl (70-99) 184 mg/dl (70-99) Bedside Glucose 152 mg/dl (70-90) 151 mg/dl (70-90) HbA1c: Test 07/28/17 05:08 Hemoglobin A1c 8.3 % (4.5-5.6) H Recent Pertinent Medications The patient is currently receiving: * Basal insulin: Lantus 40 units SQ x 1 given last PM * Correctional Insulin: Novolog Correction per scale ACHS Goal Range: Low 140 mg/dL - High 180 mg/dL Correction Factor: 10 mg/dL/unit * Prandial insulin: Per carb ratio of 1 unit per 3 grams CHO consumed Outpatient Anti-Diabetic Meds NPH 34 units w/ breakfast + 46 units at bedtime Regular insulin 29 units w/ breakfast + 22 units w/ lunch + 28 units at bedtime A1c = 8.3% Assessment & Plan ASSESSMENT: 07/28/17 * Glycemic control acceptable since admission * Fasting BSG somewhat elevated today with 40 units of Lantus on board + 34 units of NPH yesterday AM * Current insulin doses are reasonable starting points * Will add ongoing basal insulin in the form of Lantus BID, again using outpt doses to guide dosing. Will use a dosing scale initially as hospital diet and stress of illness can shift requirements up or down. PLAN FOR INPATIENT GLYCEMIC CONTROL: * Lantus SQ BID per the following scale: * 20 units if BSG less than 120 * 30 units if BSG 120-160 * 40 units if BSG above 160 * Continuing correction factor of 10 mg/dl/unit * Continuing carb ratio of 1 unit per 3 grams CHO consumed * Continuing goal range of Low 120 mg/dL - High 160 mg/dL * Add BSG check at 0200 tonight and cover with Novolog per the above parameters * Please note that the plan above was derived based on current level of insulin resistance and hospital stress. These recommendations are appropriate for inpatient admission only. Plan of care upon discharge will need to be reassessed to avoid potential outpatient hypo/hyperglycemia. Thank you.
--- NOTE | 2017-07-28 13:33 | Orthopedic Consultation ---
Orthopedic Consultation Date of Consultation: Jul 28, 2017. Attending Physician: Ruben Cavanaugh MD Reason for Consultation: back pain r/o metastatic disease vs infection History of Present Illness This is a pleasant 51-year-old female that we are asked to see in consultation regards to back pain. She states this started acutely 6 days ago without precipitating accident, trauma, fall. All positions reproduce her pain. Currently lying down is most palliative. Pain was so severe that on Wednesday, July 25 she presented to [facility] emergency room for pain control. She is discharged home with oxycodone. She states since then the oxycodone has not been controlling her pain. She just started within the past day or 2 with left anterior thigh pain as well. Pain was so severe yesterday that she came to the emergency room with her . She has no prior history of symptoms like this. She is a known diabetic with neuropathy affecting both feet as well as a nonhealing diabetic left foot ulcer. This is been managed by the wound clinic in [place]. Also has a history of thyroid cancer treated by Dr. Reyez with what sounds like a partial thyroidectomy either in 2014 or 2015. Past Medical/Surgical History Medical Problems: (1) Acute renal failure Status: Acute (2) Back pain Status: Acute (3) Strain of lumbar region Status: Acute Family History CHF GRANDFATHER Diabetes mellitus FATHER MOTHER Hypertension FATHER GRANDFATHER CT GRANDFATHER Social History Smoking Status: Never Smoker Marital Status: Housing Status: lives with family Occupation Status: disabled Allergies Coded Allergies: No Known Allergies (Verified , 07/27/17) Home Medications Scheduled Insulin Human NPH (Novolin N), 34 UNITS SQ QAM Insulin Human NPH (Novolin N), 46 UNITS SQ HS Insulin Human Regular (Novolin R), 29 UNITS SQ QAM Insulin Human Regular (Novolin R), 22 UNITS SQ DAILY@1200 Insulin Human Regular (Novolin R), 28 UNITS SQ HS Levothyroxine Sodium (Levothyroxine Sodium), 125 MCG PO DAILY Losartan Potassium (Cozaar), 25 MG PO DAILY Metoprolol Tartrate (Lopressor), 50 MG PO BID Omeprazole (Prilosec), 20 MG PO DAILY Current Inpatient Medications Current Inpatient Medications Medications (Trade) Dose Ordered Sig/Santos Route Start Time Stop Time Status Last Admin Dose Admin Miscellaneous Information (Consult) 1 ea UD PRN N/A 07/27/17 22:15 08/26/17 22:14 Piperacillin Sod/ Tazobactam Sod 4.5 gm/Dextrose 120 ml @ 30 mls/hr Q8H IV 07/28/17 04:00 09/08/17 03:59 07/28/17 11:26 30 MLS/HR Miscellaneous Information (Consult) 1 ea UD PRN N/A 07/27/17 22:15 08/26/17 22:14 Heparin Sodium (Porcine) (Heparin Sq 5000 Unit/0.5ml) 5,000 unit Q8 SQ 07/28/17 06:00 08/27/17 05:59 07/28/17 05:19 5,000 UNIT Sodium Chloride 1,000 ml @ 100 mls/hr Q10H IV 07/28/17 00:00 08/27/17 00:00 07/28/17 11:27 100 MLS/HR Acetaminophen (Tylenol Tab) 650 mg Q4H PRN PO 07/27/17 22:15 08/26/17 22:14 Al Hydrox/Mg Hydrox/Simethicone (Maalox Max Susp) 15 ml Q4H PRN PO 07/27/17 22:15 08/26/17 22:14 Magnesium Hydroxide (Milk Of Magnesia Susp) 30 ml Q12H PRN PO 07/27/17 22:15 08/26/17 22:14 Ondansetron HCl (Zofran Inj) 4 mg Q6H PRN IV 07/27/17 22:15 08/26/17 22:14 Polyethylene (Miralax Powder Packet) 17 gm DAILY PRN PO 07/27/17 22:15 08/26/17 22:14 Glucose (Glucose Chew Tab) 4-8 Tablets 4 Tabl... UD PRN PO 07/27/17 22:15 08/26/17 22:14 Hydromorphone HCl (Dilaudid Inj) 1 mg Q6 PRN IV 07/27/17 22:30 08/10/17 22:29 Hydromorphone HCl (Dilaudid Inj) 2 mg Q8 PRN IV 07/27/17 22:30 08/10/17 22:29 Oxycodone/ Acetaminophen (Percocet 5-325mg Tab) 1 tab Q4H PRN PO 07/27/17 22:30 08/10/17 22:29 07/28/17 11:28 1 TAB Oxycodone/ Acetaminophen (Percocet 5-325mg Tab) 2 tab Q4H PRN PO 07/27/17 22:30 08/10/17 22:29 Senna (Senokot Tab) 8.6 mg QAM PO 07/28/17 09:00 08/27/17 08:59 07/28/17 07:42 8.6 MG Glucose (Glucose 40% Gel) 15-30 GRAMS 15 GRAMS... UD PRN PO 07/27/17 22:45 08/26/17 22:44 Dextrose (Dextrose 50% 50ML Syringe) 25-50ML OF 50% DW IV FOR... UD PRN IV 07/27/17 22:45 08/26/17 22:44 Glucagon (Glucagon Inj) 1 mg UD PRN SQ 07/27/17 22:45 08/26/17 22:44 Miscellaneous Information (Consult Glycemic Management Pharmacy) 1 ea UD PRN N/A 07/27/17 22:52 08/26/17 22:51 Insulin Aspart (novoLOG ASPART) SLIDING SCALE ACHS SC 07/28/17 06:45 08/27/17 06:59 07/28/17 12:14 6 UNITS Levothyroxine Sodium (Synthroid Tab) 125 mcg DAILYBB PO 07/28/17 11:00 08/27/17 10:59 07/28/17 11:23 125 MCG Metoprolol Tartrate (Lopressor Tab) 50 mg BID PO 07/28/17 09:00 08/27/17 08:59 07/28/17 11:23 50 MG Pantoprazole Sodium (Protonix Tab) 40 mg DAILY PO 07/28/17 09:00 08/27/17 08:59 07/28/17 11:23 40 MG Vancomycin HCl 1750 mg/Sodium Chloride 535 ml @ 200 mls/hr Q24H IV 07/29/17 01:00 09/09/17 00:59 Insulin Glargine (Lantus Solostar Pen) SEE PROTOCOL TEXT BID SC 07/28/17 21:00 08/27/17 20:59 Insulin Aspart (novoLOG ASPART) SLIDING SCALE TODAY@0200 ONCE SC 07/29/17 02:00 07/29/17 02:01 Review of Systems Constitutional: + chills Musculoskeletal: + joint pain, + muscle pain, + swelling, + calf pain, + problem reported Physical Exam Date Time Temp Pulse Resp B/P (MAP) Pulse Ox O2 Delivery O2 Flow Rate FiO2 07/28/17 11:30 98 Room Air 07/28/17 11:22 36.6 91 22 135/70 (91) 94 Room Air 07/28/17 11:00 87 18 07/28/17 09:00 91 14 07/28/17 07:45 98 Room Air 07/28/17 07:37 36.7 86 16 141/74 (96) 98 Room Air 07/28/17 04:00 95 Room Air 07/28/17 04:00 36.7 85 18 130/72 (91) 95 Room Air 07/27/17 23:48 36.7 88 18 123/73 93 Room Air 07/27/17 23:21 88 18 133/79 95 Room Air 07/27/17 23:13 90 07/27/17 22:00 37.1 91 18 104/64 95 Nasal Cannula 2.0 07/27/17 21:13 92 18 123/54 92 Nasal Cannula 2.0 07/27/17 18:46 39.4 108 22 137/66 92 Room Air She is seen in ICU bed 10. She is . She is lying down. She is moderately uncomfortable. She is able to roll over in bed for me. Lidoderm patch over her left lower lumbar/SI region. This is tender to palpation. She is nontender midline lower lumbar spine. Her lower extremities are soft and nontender bilaterally. She has negative tension signs. Negative Angela. Negative axial loading bilaterally. She does have a compression sleeve over the left lower extremity. Strength is intact bilateral lower extremities. General Appearance: + mild distress Head: normocephalic Eyes: normal inspection ENT: hearing grossly normal Neck: supple Respiratory/Chest: no respiratory distress Cardiovascular: regular rate, rhythm Abdomen/GI: soft Extremities/Musculoskelatal: no calf tenderness Neurologic/Psych: oriented x 3 Skin: normal color Lymphatic: no adenopathy Laboratory Results Last 24 Hours Test 07/27/17 19:40 07/27/17 19:45 07/27/17 21:00 07/27/17 22:24 White Blood Count 8.26 K/uL Red Blood Count 3.35 M/uL Hemoglobin 10.2 g/dL Hematocrit 29.5 % Mean Corpuscular Volume 88.1 fL Mean Corpuscular Hemoglobin 30.4 pg Mean Corpuscular Hemoglobin Concent 34.6 g/dl Platelet Count 223 K/uL Mean Platelet Volume 10.0 fL Neutrophils (%) (Auto) 76.9 % Lymphocytes (%) (Auto) 12.2 % Monocytes (%) (Auto) 8.0 % Eosinophils (%) (Auto) 1.5 % Basophils (%) (Auto) 0.2 % Neutrophils # (Auto) 6.35 K/uL Lymphocytes # (Auto) 1.01 K/uL Monocytes # (Auto) 0.66 K/uL Eosinophils # (Auto) 0.12 K/uL Basophils # (Auto) 0.02 K/uL RDW Standard Deviation 46.1 fL RDW Coefficient of Variation 14.3 % Immature Granulocyte % (Auto) 1.2 % Immature Granulocyte # (Auto) 0.10 K/uL Prothrombin Time 9.9 SECONDS Prothromb Time International Ratio 0.9 Sodium Level 133 mmol/L Potassium Level 4.2 mmol/L Chloride Level 101 mmol/L Carbon Dioxide Level 24 mmol/L Anion Gap 8.0 mmol/L Blood Urea Nitrogen 33 mg/dl Creatinine 2.38 mg/dl Est Creatinine Clear Calc Drug Dose 38.0 ml/min Estimated GFR () 26.7 Estimated GFR (Non- 23.0 BUN/Creatinine Ratio 13.8 Random Glucose 153 mg/dl Calcium Level 8.5 mg/dl Total Bilirubin 0.8 mg/dl Direct Bilirubin 0.2 mg/dl Aspartate Amino Transf (AST/SGOT) 24 U/L Alanine Aminotransferase (ALT/SGPT) 29 U/L Alkaline Phosphatase 82 U/L Total Protein 7.5 gm/dl Albumin 2.2 gm/dl Lipase 55 U/L Procalcitonin 0.64 ng/ml Influenza Type A Antigen Neg for Influ A Influenza Type B Antigen Neg for Influ B Urine Color YELLOW Urine Appearance CLEAR Urine pH 5.5 Urine Specific [place] 1.012 Urine Protein 3+ Urine Glucose (UA) TRACE Urine Ketones NEG Urine Occult Blood 1+ Urine Nitrite NEG Urine Bilirubin NEG Urine Urobilinogen NEG Urine Leukocyte Esterase NEG Urine WBC (Auto) 1-5 /hpf Urine RBC (Auto) 0-4 /hpf Urine Hyaline Casts (Auto) 5-10 /lpf Urine Epithelial Cells (Auto) >30 /lpf Urine Bacteria (Auto) NEG Carcinoembryonic Antigen 0.6 ng/ml Test 07/27/17 22:38 07/28/17 00:24 07/28/17 03:35 07/28/17 05:08 Lactic Acid Level 0.7 mmol/L Bedside Glucose 152 mg/dl 151 mg/dl White Blood Count 8.16 K/uL Red Blood Count 2.86 M/uL Hemoglobin 8.4 g/dL Hematocrit 25.4 % Mean Corpuscular Volume 88.8 fL Mean Corpuscular Hemoglobin 29.4 pg Mean Corpuscular Hemoglobin Concent 33.1 g/dl RDW Standard Deviation 47.7 fL RDW Coefficient of Variation 14.7 % Platelet Count 203 K/uL Mean Platelet Volume 9.3 fL Sodium Level 135 mmol/L Potassium Level 3.5 mmol/L Chloride Level 105 mmol/L Carbon Dioxide Level 22 mmol/L Anion Gap 8.0 mmol/L Blood Urea Nitrogen 32 mg/dl Creatinine 2.47 mg/dl Est Creatinine Clear Calc Drug Dose 37.8 ml/min Estimated GFR () 25.5 Estimated GFR (Non- 22.0 BUN/Creatinine Ratio 12.8 Random Glucose 184 mg/dl Estimated Average Glucose 192 mg/dl Hemoglobin A1c 8.3 % Calcium Level 7.6 mg/dl Magnesium Level 2.7 mg/dl Total Bilirubin 0.8 mg/dl Direct Bilirubin 0.2 mg/dl Aspartate Amino Transf (AST/SGOT) 15 U/L Alanine Aminotransferase (ALT/SGPT) 23 U/L Alkaline Phosphatase 68 U/L Total Protein 6.3 gm/dl Albumin 1.8 gm/dl Random Vancomycin Level 31.9 mcg/ml Patient Name: TANIA YOUSIF Unit Number: [id number] Dictated: 07/27/172103 Transcribed: 07/27/172133 Printed Date/Time: [~ rep prt dt]/[~ rep prt tm] [~ rep ct labl] - [~ rep ct ivnm] [facility] [place] [address] Dictated: 07/27/172103 Transcribed: 07/27/172133 Printed Date/Time: [~ rep prt dt]/[~ rep prt tm] [~ rep ct labl] - [~ rep ct ivnm] Patient: TANIA YOUSIF Address1: [address] Rec: [id number] Address2: Acct ID: [id number] [facility] Zip: [place] [address] Date: 1965 Sex: F Room/Bed: Ref Phy: Rob Dodge M.D. SC: ALFREDA Att Phy: Report #: [id number] Ana Laura Phy: Yosvany Sotomayor M.D.(BRICE) Test: LSWO Admit Phy: Activities Officer: LINWOOD Interpreting Phy: Russell Fernandez M.D. Diagnosis: BACK AND LEG PAINB Ordering Phy: Keyshawn Nettles MD Service Date: 07/27/17 Admit Date: 07/27/17 MNE: [id number] CONF: DICTATED BY: Russell Fernandez M.D.]] CC: Keyshawn Nettles MD Hoffman, Thomas M.D. Taylor, William F.JR, M.D.(BRICE) Endcc: [~ rep ct add3]] CT SCAN OF THE LUMBAR SPINE WITHOUT IV CONTRAST CLINICAL HISTORY: Low back pain. No reported history of trauma. COMPARISON STUDY: No priors. TECHNIQUE: CT scan of the lumbar spine is performed from the lower thoracic spine to the sacrum. Images are reviewed in the axial, sagittal, and coronal planes. IV contrast was not administered for this examination. A dose lowering technique was utilized adhering to the principles of ALARA. CT DOSE: 1544.79 mGy.cm FINDINGS: The skeletal structures are osteopenic. There is no evidence of fracture or malalignment involving the lumbar spine. Vertebral body height and alignment are maintained. The transverse and spinous processes are intact. There is no evidence of spondylolysis. There are large osteolytic lesions identified involving the bodies of L4 and L5. The lesion in the body of L4 measures up to 2.5 cm. There is associated cortical destruction/breakthrough involving the posterior wall of the L4 vertebral body as well as the inferior endplate. The L5 lesion extends through the superior endplate. Although indeterminant, these lesions are highly concerning for bony metastatic disease. An indeterminant 6 mm sclerotic focus is identified in the body of L3. There is mild disc space narrowing seen at L4-L5. The remaining disc spaces are preserved. There is no evidence of large disc herniation by CT. The paraspinous soft tissues are within normal limits. The visualized sacrum and bony pelvis appear intact, noting sclerotic change at the sacroiliac joints. There is mild atherosclerotic calcification of the abdominal aorta. IMPRESSION: 1. There is no fracture or malalignment identified involving the lumbar spine. 2. Large destructive bony lesions are suggested in the bodies of L4 and L5 with associated cortical breakthrough. Although nonspecific, the appearance is highly concerning for bony metastatic disease. Correlation with the patient's medical/oncological history will be required, and correlation with any prior outside imaging studies such as abdominal CT would be useful for comparison purposes. Consider follow-up with a nuclear bone scan for further assessment. Dictated: 07/27/2017 9:04 PM Transcribed: 07/27/2017 9:34 PM [email or web address] Electronically signed by: Russell Fernandez M.D. 07/27/2017 9:43 PM Dictated Date/Time: 07/27/2017 9:04 PM The status of this report is Signed. Draft = Not yet reviewed or approved by Radiologist. Signed = Reviewed and approved by Radiologist. <AttendingPhy></AttendingPhy> <FamilyPhy>Rob Dodge M.D.</FamilyPhy> < PrimaryPhy>Yosvany Sotomayor M.D.(BRICE)</PrimaryPhy> <UnitNumber>[id number]</ UnitNumber> <VisitNumber>[id number]</VisitNumber> <PatientName>TANIA YOUSIF< /PatientName> <DateOfBirth>1965</DateOfBirth> <Location>C.EDB</Location> < ServiceDate>07/27/17</ServiceDate> <MNE>ESINDI</MNE> <OrderingPhy>Keyshawn Nettles MD</OrderingPhy> <OrderingPhyMNE>f rep ord mne</OrderingPhyMNE> < DictatingPhyMNE>f rep dict mne</DictatingPhyMNE> <CCListMNE>f rep ct mne</ CCListMNE> <AdmittingPhyMNE>f pt admit dr pandya</AdmittingPhyMNE> <AttendingPhyMNE >f pt attend dr pandya</AttendingPhyMNE> <ConsultingPhyMNE>f pt consult dr pandya</ConsultingPhyMNE> <FamilyPhyMNE>f pt fam dr pandya</FamilyPhyMNE> <OtherPhyMNE>f pt other dr pandya</OtherPhyMNE> < PrimaryPhyMNE>f pt prim care dr pandya</PrimaryPhyMNE> <ReferringPhyMNE>f pt referring dr pandya</ReferringPhyMNE> Assessment & Plan Assessment: Back pain with destructive lesions noted within the vertebral body of L4 and L5 on lumbar CT scan rule out metastatic disease versus possible infection. Plan: Patient's imaging as well as clinical course have been reviewed with Dr. Dean. At this point, to pursue further imaging to include cervical, thoracic , lumbar MRI without contrast due to her current BUN/creatinine level. This is done to further evaluate for possible metastatic disease. Her CT images appear most consistent with metastatic disease rather than infection. We'll make further recommendations upon review of her MRIs. Would also be happy to consider pursuing biopsy lumbar spine for definitive diagnosis as well as possible primary site
[2017-07-28] MEDS ORDERED: INSULIN GLARGINE SOLOSTAR 100 UNITS/ML 3 ML PEN SC SCH (17:00)
[2017-07-28] MEDS: INSULIN GLARGINE SOLOSTAR 100 UNITS/ML 3 ML PEN SC SCH (19:50)
--- NOTE | 2017-07-28 21:56 | DIAGNOSTIC IMAGING REPORT ---
CERVICAL SPINE MRI HISTORY: Lumbar spine lesions. eval for metastatic disease TECHNIQUE: Multiplanar multisequence MRI of the cervical spine was performed without the use of contrast. COMPARISON STUDY: None. FINDINGS: Visualized posterior fossa is unremarkable. No fracture or subluxation within the cervical spine. Disc spaces are relatively preserved. Prevertebral soft tissues and the C1-C2 interval are intact. The cervical spinal cord is normal in course, caliber, and signal intensity. There is a 1.4 cm expansile lesion seen within the C2 spinous process. No evidence for epidural extension. No additional lesions seen within the cervical spine. C2-C3: No significant central canal or neural foraminal narrowing. C3-C4: No significant central canal or neural foraminal narrowing. C4-C5: No significant central canal or neural foraminal narrowing. C5-C6: Small broad-based posterior disc bulge without significant central canal or neural foraminal narrowing. C6-C7: Small left paracentral focal disc protrusion resulting in mild left neural foraminal narrowing. Some of the exiting nerve root at this level. No significant central canal narrowing. C7-T1: No significant central canal or neural foraminal narrowing. IMPRESSION: 1. A 1.4 cm expansile lesion within the C2 spinous process consistent with a metastatic focus. This does not extend to the epidural space. No additional lesions identified within the cervical spine. 2. No central canal narrowing. 3. No fracture or subluxation within the cervical spine. 4. Degenerative changes as described above. Electronically signed by: Robson Nj M.D. 07/28/2017 9:54 PM Dictated Date/Time: 07/28/2017 9:48 PM
--- NOTE | 2017-07-28 23:11 | DIAGNOSTIC IMAGING REPORT ---
THORACIC SPINE MRI HISTORY: Acute back pain. eval for metastatic disease TECHNIQUE: Multiplanar multisequence MRI of the thoracic spine was performed without the use of contrast. COMPARISON: Chest CT 07/27/2017. FINDINGS: There is a single 1.4 cm T2 and T1 hypointense lesion within the right posterior T6 vertebral body. This is consistent with a metastatic focus. No cortical breakthrough or epidural extension identified on this noncontrast study. No fracture or subluxation within the thoracic spine. Mild disc space narrowing within the mid to lower thoracic spine with a few small focal disc protrusions at these levels. However, no significant central canal or neural foraminal narrowing. Paraspinal soft tissues are unremarkable. IMPRESSION: A single 1.4 cm T6 vertebral body lesion consistent with a metastatic focus. No fractures or epidural extension identified. No significant central canal or neural foraminal narrowing. Electronically signed by: Robson Nj M.D. 07/28/2017 11:10 PM Dictated Date/Time: 07/28/2017 11:04 PM
--- NOTE | 2017-07-28 23:26 | DIAGNOSTIC IMAGING REPORT ---
LUMBAR SPINE MRI HISTORY: eval for metastatic disease, CT suspicious TECHNIQUE: Multiplanar multisequence MRI of the lumbar spine was performed without the use of contrast. COMPARISON: Lumbar spine CT 07/27/2017. FINDINGS: For the purpose of the report the L5-S1 disc space will be located on axial image of . Confirmation of the L3, L4, and L5 vertebral body lesions. The L3 lesion measures 5 mm. The L4 lesion measures 2.4 cm. The L5 lesion measures 1.8 cm. The L5 lesion results in small focal compression fracture at the anterior superior endplate of L5. No definite epidural or paraspinal extension identified. Subcentimeter retroperitoneal lymph nodes are identified. Mild left paraspinal edema seen from the L3-L5 levels. This is of uncertain clinical significance. Small broad-based posterior disc bulges at L3-L4 and L4-L5. Small focal central disc protrusion at L5-S1. No significant central canal narrowing. The conus terminates at the L1 level. Mild disc space narrowing at L4-L5 and L5-S1. IMPRESSION: 1. Confirmation of the L3, L4, and L5 vertebral body lesions consistent with metastatic disease. No definite epidural or paraspinal extension. No central canal narrowing. 2. Prominent retroperitoneal lymph nodes. 3. Nonspecific left paraspinal edema at the lower lumbar spine. Electronically signed by: Robson Nj M.D. 07/28/2017 11:24 PM Dictated Date/Time: 07/28/2017 11:17 PM
[2017-07-28] MEDS: ACETAMINOPHEN 325 MG TAB PO PRN (23:58)
[2017-07-29] VITALS (11 sets, daily range): BP systolic 101–138; BP diastolic 66–79; PULSE 78–93; TEMP 36.9–39.3; O2SAT 88–99
[2017-07-29] MEDS ORDERED: VANCOMYCIN INJ 1,750 MG in SODIUM CHLORIDE 0.9% 500ML 500 ML IV SCH (01:00)
[2017-07-29] MEDS ORDERED: INSULIN ASPART 100 UNITS/ML 3 ML PEN SC ONE (02:00)
[2017-07-29] MEDS: SODIUM CHLORIDE 0.9% 1000ML 1,000 ML IV SCH ×3 (03:00→15:51)
[2017-07-29] MEDS: HEPARIN SOD 5000 UNIT/0.5 ML CARP SQ SCH ×3 (06:01→20:32)
[2017-07-29] MEDS: LEVOTHYROXINE 125 MCG TAB PO SCH (06:02)
[2017-07-29] MEDS: PIPERACILL/TAZOBAC IV 4.5 GM in DEXTROSE 5% 100ML 100 ML IV SCH ×3 (06:12→20:38)
[2017-07-29] MEDS: INSULIN ASPART 100 UNITS/ML 3 ML PEN SC SCH ×4 (07:00→21:00)
[2017-07-29 07:05] LABS: HEMATOCRIT 25.7 % (37-47); HEMOGLOBIN 8.2 g/dL (12.0-16.0); MEAN CELL VOLUME 90.8 fL (80-100); MEAN CORPUSCULAR HGB CONC 31.9 g/dl (32-36); MEAN PLATELET VOLUME 9.4 fL (7.4-10.4); PLATELET COUNT 256 K/uL (130-400); WHITE BLOOD COUNT 11.25 K/uL (4.8-10.8)
[2017-07-29 07:41] LABS: ALBUMIN 1.8 gm/dl (3.4-5.0); CALCIUM 7.6 mg/dl (8.5-10.1); CREATININE 2.99 mg/dl (0.60-1.20); TOTAL PROTEIN 6.8 gm/dl (6.4-8.2)
[2017-07-29] MEDS: PANTOprazole SOD 40 MG TAB PO SCH (07:53)
[2017-07-29] MEDS: METOPROLOL TARTRATE 50 MG TAB PO SCH ×2 (07:53→20:28)
[2017-07-29] MEDS: SENNA 8.6 MG TAB PO SCH (07:53)
[2017-07-29] MEDS: INSULIN GLARGINE SOLOSTAR 100 UNITS/ML 3 ML PEN SC SCH ×2 (07:56→20:31)
[2017-07-29] MEDS: OXYCODONE/ACETAMINOPHEN 5-325 TAB PO PRN ×3 (08:32→20:39)
--- NOTE | 2017-07-29 13:49 | Progress Note ---
Medicine Progress Note Date & Time of Visit: Jul 29, 2017 at 13:42. Subjective patient seen resting in bed, sleeping, easily rousable states her back pain seems to be better compared to yesterday denies leg weakness, numbness, incontinence appetite is good states urine output is not decreasing no other symptoms Objective Last 8 Hrs Date Time Temp Pulse Resp B/P (MAP) Pulse Ox O2 Delivery O2 Flow Rate FiO2 07/29/17 12:00 96 Nasal Cannula 2.0 07/29/17 11:17 37.1 92 20 138/79 (98) 90 Room Air 07/29/17 08:30 Room Air 2.0 07/29/17 08:00 96 Nasal Cannula 2.0 07/29/17 07:20 37.2 91 20 129/78 (95) 96 Nasal Cannula 2.0 Physical Exam: General-oriented 3, speaking sentences, not in distress Head- atraumatic Eyes- anicteric Neck- supple, no JVD Lungs- clear clear breath sounds bilaterally Heart- regular rhythm; no murmur, normal rate Abdomen- normal bowel sounds, soft, nontender, no masses or hepatosplenomegaly Extremities-left foot: Active ulcer on the lateral plantar aspect open no discharge or bleeding noted no pretibial edema, no calf tenderness; peripheral pulses intact Neuro- alert, oriented x 3; no gross focal neurologic deficit Skin- warm & dry Laboratory Results: Last 24 Hours Test 07/28/17 16:05 07/28/17 19:49 07/29/17 02:18 07/29/17 06:39 Bedside Glucose 154 mg/dl 123 mg/dl 99 mg/dl White Blood Count 11.25 K/uL Red Blood Count 2.83 M/uL Hemoglobin 8.2 g/dL Hematocrit 25.7 % Mean Corpuscular Volume 90.8 fL Mean Corpuscular Hemoglobin 29.0 pg Mean Corpuscular Hemoglobin Concent 31.9 g/dl RDW Standard Deviation 50.0 fL RDW Coefficient of Variation 15.0 % Platelet Count 256 K/uL Mean Platelet Volume 9.4 fL Sodium Level 135 mmol/L Potassium Level 4.0 mmol/L Chloride Level 106 mmol/L Carbon Dioxide Level 22 mmol/L Anion Gap 7.0 mmol/L Blood Urea Nitrogen 30 mg/dl Creatinine 2.99 mg/dl Est Creatinine Clear Calc Drug Dose 31.8 ml/min Estimated GFR () 20.2 Estimated GFR (Non- 17.5 BUN/Creatinine Ratio 10.0 Random Glucose 68 mg/dl Calcium Level 7.6 mg/dl Magnesium Level 2.4 mg/dl Total Bilirubin 0.9 mg/dl Direct Bilirubin 0.3 mg/dl Aspartate Amino Transf (AST/SGOT) 15 U/L Alanine Aminotransferase (ALT/SGPT) 22 U/L Alkaline Phosphatase 73 U/L Total Protein 6.8 gm/dl Albumin 1.8 gm/dl Test 07/29/17 06:49 07/29/17 11:10 Bedside Glucose 75 mg/dl 95 mg/dl Assessment & Plan 51-year-old female with history of diabetes type 2 on insulin, chronic left foot wound, hypertension, CKD stage III, resenting with low back pain with fevers. FEVER Met criteria for SIRS Possible sources include: POSSIBLE METASTATIC VS. INFECTIOUS PROCESS IN THE LUMBAR SPINE L4-L5 CT lumbar spine noted: Large destructive bony lesions are suggested in the bodies of L4 and L5. There is associated cortical breakthrough. Although nonspecific, the appearance is highly concerning for bony metastatic disease. Blood cultures positive for staph aureus, sensitivities pending Left foot wound culture positive staph aureus, sensitivities pending Continue day #2 vancomycin and Zosyn Question metastatic process, CT abdomen and chest unrevealing, history of thyroid cancer Orthopedic spine consulted: MRI cervical thoracic lumbar spine: Possible bone metastases Awaiting further recommendations by orthopedic spine, may need a bone biopsy Hematology oncology consulted Pain well controlled Continue analgesics Add laxative Staph aureus infection, LEFT FOOT WOUND Id consulted On antibiotics as noted above Wound care consult ACUTE RENAL FAILURE ON CKD 3 Baseline creatinine 1.6, creatinine is 2.4, now 2.99 Likely from prerenal etiology, infection, possible contrast-induced last week's admission We will obtain records from [facility] admission last week Continue IV NSS Nephrology consulted DIABETES TYPE 2 A1c 8.3 Hold NPH and regular Insulin sliding scale for now Glycemic control showroom consultant HYPERTENSION Hold losartan for acute kidney injury Continue metoprolol Monitor DVT prophylaxis Heparin Full code per patient Disposition We will order PT OT Anticipate return home when medically stable May need IV antibiotics on discharge, awaiting ID recommendations Current Inpatient Medications: Current Inpatient Medications Medications (Trade) Dose Ordered Sig/Santos Route Start Time Stop Time Status Last Admin Dose Admin Miscellaneous Information (Consult) 1 ea UD PRN N/A 07/27/17 22:15 3/22/18 22:14 Piperacillin Sod/ Tazobactam Sod 4.5 gm/Dextrose 120 ml @ 30 mls/hr Q8H IV 07/28/17 04:00 09/08/17 03:59 07/29/17 12:09 30 MLS/HR Miscellaneous Information (Consult) 1 ea UD PRN N/A 07/27/17 22:15 08/26/17 22:14 Heparin Sodium (Porcine) (Heparin Sq 5000 Unit/0.5ml) 5,000 unit Q8 SQ 07/28/17 06:00 08/27/17 05:59 07/29/17 13:12 5,000 UNIT Sodium Chloride 1,000 ml @ 100 mls/hr Q10H IV 07/28/17 00:00 08/27/17 00:00 07/29/17 07:53 100 MLS/HR Acetaminophen (Tylenol Tab) 650 mg Q4H PRN PO 07/27/17 22:15 08/26/17 22:14 07/28/17 23:58 650 MG Al Hydrox/Mg Hydrox/Simethicone (Maalox Max Susp) 15 ml Q4H PRN PO 07/27/17 22:15 08/26/17 22:14 Magnesium Hydroxide (Milk Of Magnesia Susp) 30 ml Q12H PRN PO 07/27/17 22:15 08/26/17 22:14 Ondansetron HCl (Zofran Inj) 4 mg Q6H PRN IV 07/27/17 22:15 08/26/17 22:14 Polyethylene (Miralax Powder Packet) 17 gm DAILY PRN PO 07/27/17 22:15 08/26/17 22:14 Glucose (Glucose Chew Tab) 4-8 Tablets 4 Tabl... UD PRN PO 07/27/17 22:15 08/26/17 22:14 Hydromorphone HCl (Dilaudid Inj) 1 mg Q6 PRN IV 07/27/17 22:30 08/10/17 22:29 07/28/17 19:48 1 MG Hydromorphone HCl (Dilaudid Inj) 2 mg Q8 PRN IV 07/27/17 22:30 08/10/17 22:29 Oxycodone/ Acetaminophen (Percocet 5-325mg Tab) 1 tab Q4H PRN PO 07/27/17 22:30 08/10/17 22:29 07/29/17 08:32 1 TAB Oxycodone/ Acetaminophen (Percocet 5-325mg Tab) 2 tab Q4H PRN PO 07/27/17 22:30 08/10/17 22:29 07/28/17 17:29 2 TAB Senna (Senokot Tab) 8.6 mg QAM PO 07/28/17 09:00 08/27/17 08:59 07/29/17 07:53 8.6 MG Glucose (Glucose 40% Gel) 15-30 GRAMS 15 GRAMS... UD PRN PO 07/27/17 22:45 08/26/17 22:44 Dextrose (Dextrose 50% 50ML Syringe) 25-50ML OF 50% DW IV FOR... UD PRN IV 07/27/17 22:45 08/26/17 22:44 Glucagon (Glucagon Inj) 1 mg UD PRN SQ 07/27/17 22:45 08/26/17 22:44 Miscellaneous Information (Consult Glycemic Management Pharmacy) 1 ea UD PRN N/A 07/27/17 22:52 08/26/17 22:51 Insulin Aspart (novoLOG ASPART) SLIDING SCALE ACHS SC 07/28/17 06:45 08/27/17 06:59 07/29/17 12:08 8 UNITS Levothyroxine Sodium (Synthroid Tab) 125 mcg DAILYBB PO 07/28/17 11:00 08/27/17 10:59 07/29/17 06:02 125 MCG Metoprolol Tartrate (Lopressor Tab) 50 mg BID PO 07/28/17 09:00 08/27/17 08:59 07/29/17 07:53 50 MG Pantoprazole Sodium (Protonix Tab) 40 mg DAILY PO 07/28/17 09:00 08/27/17 08:59 07/29/17 07:53 40 MG Vancomycin HCl 1750 mg/Sodium Chloride 535 ml @ 200 mls/hr Q24H IV 07/29/17 01:00 09/09/17 00:59 07/29/17 03:54 200 MLS/HR Insulin Glargine (Lantus Solostar Pen) SEE PROTOCOL TEXT BID SC 07/28/17 21:00 08/27/17 20:59 07/29/17 07:56 20 UNITS
--- NOTE | 2017-07-29 14:12 | Pharmacy Progress Note ---
Pharmacy Glycemic Short Note 2 Date of Service Jul 29, 2017. OUTPATIENT ANTIDIABETIC REGIMEN: * NPH 34 units w/ breakfast + 46 units at bedtime * Regular insulin 29 units w/ breakfast + 22 units w/ lunch + 28 units at bedtime * A1c = 8.3% ASSESSMENT: 07/29/17: * BSGs are improved today (99, 75, 95). * Patient is requiring significantly less insulin than her home regimen, however , A1c is elevated and may indicate non-compliance with home doses? * Patient reports to CDE that she is compliant with outpatient regimen. * No changes required at this time. 07/28/17 * Glycemic control acceptable since admission * Fasting BSG somewhat elevated today with 40 units of Lantus on board + 34 units of NPH yesterday AM * Current insulin doses are reasonable starting points * Will add ongoing basal insulin in the form of Lantus BID, again using outpt doses to guide dosing. Will use a dosing scale initially as hospital diet and stress of illness can shift requirements up or down. PLAN FOR INPATIENT GLYCEMIC CONTROL: * Lantus SQ BID per the following scale: * 20 units if BSG less than 120 * 30 units if BSG 120-160 * 40 units if BSG above 160 * Continuing correction factor of 10 mg/dl/unit * Continuing carb ratio of 1 unit per 3 grams CHO consumed * Continuing goal range of Low 120 mg/dL - High 160 mg/dL PLAN FOR DISCHARGE: * Current A1c (8.3%) reflects suboptimal glycemic control as an outpatient. * May consider adjusting insulin dosing on discharge. * Recommend close f/u with PCP after discharge for DM management and optimizing A1c.
--- NOTE | 2017-07-29 15:03 | Progress Note ---
Progress Note Date of Service Jul 29, 2017. Progress Note Patient states her back pain is markedly improved today. She states she's been up in amatory throughout the morning without difficulty. On physical exam she has no significant tenderness to palpation or percussion of the thoracal lumbar spine. She demonstrates excellent strength to testing bilateral extremities. Assessment possible multiple met metastatic lesions throughout the cervical thoracic and lumbar spine. Plan at this time I reviewed with the patient the findings on her MRI images. I discussed that she may need to consider tertiary care for CT-guided biopsy. She understands and agrees.
--- NOTE | 2017-07-29 19:30 | Infectious Disease Progress Nt ---
Progress Note Date of Service Jul 29, 2017. Subjective Pt evaluation today including: conversation w/ patient, physical exam, chart review, lab review, review of studies, conversation w/ strategy planning consultant, review of inpatient medication list Back pain better this morning. Tolerating antibiotics without apparent difficulty. Blood cultures and wound culture now growing Staph aureus, sensitivities pending. MRI of cervical and thoracic spine shows possible metastatic lesions. All Other Systems: Reviewed and Negative Medications Current Inpatient Medications Medications (Trade) Dose Ordered Sig/Santos Route Start Time Stop Time Status Last Admin Dose Admin Miscellaneous Information (Consult) 1 ea UD PRN N/A 07/27/17 22:15 08/26/17 22:14 Piperacillin Sod/ Tazobactam Sod 4.5 gm/Dextrose 120 ml @ 30 mls/hr Q8H IV 07/28/17 04:00 09/08/17 03:59 07/29/17 12:09 30 MLS/HR Miscellaneous Information (Consult) 1 ea UD PRN N/A 07/27/17 22:15 08/26/17 22:14 Heparin Sodium (Porcine) (Heparin Sq 5000 Unit/0.5ml) 5,000 unit Q8 SQ 07/28/17 06:00 08/27/17 05:59 07/29/17 13:12 5,000 UNIT Sodium Chloride 1,000 ml @ 100 mls/hr Q10H IV 07/28/17 00:00 08/27/17 00:00 07/29/17 15:51 100 MLS/HR Acetaminophen (Tylenol Tab) 650 mg Q4H PRN PO 07/27/17 22:15 08/26/17 22:14 07/28/17 23:58 650 MG Al Hydrox/Mg Hydrox/Simethicone (Maalox Max Susp) 15 ml Q4H PRN PO 07/27/17 22:15 08/26/17 22:14 Magnesium Hydroxide (Milk Of Magnesia Susp) 30 ml Q12H PRN PO 07/27/17 22:15 08/26/17 22:14 Ondansetron HCl (Zofran Inj) 4 mg Q6H PRN IV 07/27/17 22:15 08/26/17 22:14 Polyethylene (Miralax Powder Packet) 17 gm DAILY PRN PO 07/27/17 22:15 08/26/17 22:14 Glucose (Glucose Chew Tab) 4-8 Tablets 4 Tabl... UD PRN PO 07/27/17 22:15 08/26/17 22:14 Hydromorphone HCl (Dilaudid Inj) 1 mg Q6 PRN IV 07/27/17 22:30 08/10/17 22:29 07/28/17 19:48 1 MG Hydromorphone HCl (Dilaudid Inj) 2 mg Q8 PRN IV 07/27/17 22:30 08/10/17 22:29 Oxycodone/ Acetaminophen (Percocet 5-325mg Tab) 1 tab Q4H PRN PO 07/27/17 22:30 08/10/17 22:29 07/29/17 08:32 1 TAB Oxycodone/ Acetaminophen (Percocet 5-325mg Tab) 2 tab Q4H PRN PO 07/27/17 22:30 08/10/17 22:29 07/29/17 15:51 2 TAB Glucose (Glucose 40% Gel) 15-30 GRAMS 15 GRAMS... UD PRN PO 07/27/17 22:45 08/26/17 22:44 Dextrose (Dextrose 50% 50ML Syringe) 25-50ML OF 50% DW IV FOR... UD PRN IV 07/27/17 22:45 08/26/17 22:44 Glucagon (Glucagon Inj) 1 mg UD PRN SQ 07/27/17 22:45 08/26/17 22:44 Miscellaneous Information (Consult Glycemic Management Pharmacy) 1 ea UD PRN N/A 07/27/17 22:52 08/26/17 22:51 Insulin Aspart (novoLOG ASPART) SLIDING SCALE ACHS SC 07/28/17 06:45 08/27/17 06:59 07/29/17 17:40 9 UNITS Levothyroxine Sodium (Synthroid Tab) 125 mcg DAILYBB PO 07/28/17 11:00 08/27/17 10:59 07/29/17 06:02 125 MCG Metoprolol Tartrate (Lopressor Tab) 50 mg BID PO 07/28/17 09:00 08/27/17 08:59 07/29/17 07:53 50 MG Pantoprazole Sodium (Protonix Tab) 40 mg DAILY PO 07/28/17 09:00 08/27/17 08:59 07/29/17 07:53 40 MG Vancomycin HCl 1750 mg/Sodium Chloride 535 ml @ 200 mls/hr Q24H IV 07/29/17 01:00 09/09/17 00:59 Future Hold 07/29/17 03:54 200 MLS/HR Insulin Glargine (Lantus Solostar Pen) SEE PROTOCOL TEXT BID SC 07/28/17 21:00 08/27/17 20:59 07/29/17 07:56 20 UNITS Senna/Docusate Sodium (Senokot S Tab) 1 tab QAM PO 07/30/17 09:00 08/29/17 08:59 Objective Vital Signs Date Time Temp Pulse Resp B/P (MAP) Pulse Ox O2 Delivery O2 Flow Rate FiO2 07/29/17 16:00 Nasal Cannula 2.0 07/29/17 16:00 37.2 82 18 122/79 (93) 99 Nasal Cannula 3.0 07/29/17 15:36 36.9 78 18 132/78 (96) 99 Nasal Cannula 3.0 07/29/17 12:00 96 Nasal Cannula 2.0 07/29/17 12:00 Nasal Cannula 2.0 07/29/17 11:17 37.1 92 20 138/79 (98) 90 Room Air 07/29/17 08:30 Room Air 2.0 07/29/17 08:00 96 Nasal Cannula 2.0 07/29/17 07:20 37.2 91 20 129/78 (95) 96 Nasal Cannula 2.0 07/29/17 04:00 95 Nasal Cannula 2.0 07/29/17 03:30 37.5 85 23 101/67 (78) 88 Room Air 2.0 Nasal Cannula 07/29/17 00:00 39.3 93 23 118/73 (88) 93 2.0 07/29/17 00:00 95 Nasal Cannula 2.0 07/28/17 20:53 36.7 86 16 118/64 (82) 96 Room Air 07/28/17 20:53 Room Air Physical Exam General Appearance: WD/WN, no apparent distress Eyes: normal inspection, EOMI, sclerae normal ENT: normal ENT inspection, hearing grossly normal, pharynx normal Neck: supple, no adenopathy, thyroid normal, trachea midline Respiratory/Chest: chest non-tender, lungs clear, normal breath sounds, no respiratory distress Cardiovascular: regular rate, rhythm, no gallop, no murmur Abdomen: normal bowel sounds, non tender, soft, no organomegaly Extremities: non-tender, no calf tenderness Neurologic/Psychiatric: alert, normal mood/affect, oriented x 3 Skin: normal color, warm/dry, no rash Lymphatic: no adenopathy Laboratory Results RUN DATE: 07/29/17 [facility] LAB PAGE 1 RUN TIME: 1218 Specimen Inquiry PATIENT: TANIA YOUSIF LOC: [facility]aura[facility] U # : [id number] AGE/SX: 51/F ROOM: [facility] REG : 07/27/[address]: Ruben Cavanaugh MD : 1965 BED: 1 DIS : STATUS: ADM IN TLOC: SPEC #: [id number] CIARA: 07/27/17 STATUS: RES REQ #: [id number] RECD: 07/27/17 [facility] [address]: Kathy Gomez M.D. SOURCE: BLOOD ENTR: 07/27/[address] [facility] [address]: [facility]izz[facility] Keyshawn Nettles MD Taylor, William F.JR, M.D.([facility]) ORDERED: BLOOD CULTURE Procedure Result Verified Site BLD CULT Preliminary 07/29/17-1218 Organism 1 STAPHYLOCOCCUS AUREUS SENS SENSITIVITY TO FOLLOW Phoned Positive Blood Culture Gram Stain Report to TYLER OBRIEN on 07/28/17 At 1921 By REMI. Results were verbalized back to REMI. Last 24 Hours Test 07/28/17 19:49 07/29/17 02:18 07/29/17 06:39 07/29/17 06:49 Bedside Glucose 123 mg/dl 99 mg/dl 75 mg/dl White Blood Count 11.25 K/uL Red Blood Count 2.83 M/uL Hemoglobin 8.2 g/dL Hematocrit 25.7 % Mean Corpuscular Volume 90.8 fL Mean Corpuscular Hemoglobin 29.0 pg Mean Corpuscular Hemoglobin Concent 31.9 g/dl RDW Standard Deviation 50.0 fL RDW Coefficient of Variation 15.0 % Platelet Count 256 K/uL Mean Platelet Volume 9.4 fL Sodium Level 135 mmol/L Potassium Level 4.0 mmol/L Chloride Level 106 mmol/L Carbon Dioxide Level 22 mmol/L Anion Gap 7.0 mmol/L Blood Urea Nitrogen 30 mg/dl Creatinine 2.99 mg/dl Est Creatinine Clear Calc Drug Dose 31.8 ml/min Estimated GFR () 20.2 Estimated GFR (Non- 17.5 BUN/Creatinine Ratio 10.0 Random Glucose 68 mg/dl Calcium Level 7.6 mg/dl Magnesium Level 2.4 mg/dl Total Bilirubin 0.9 mg/dl Direct Bilirubin 0.3 mg/dl Aspartate Amino Transf (AST/SGOT) 15 U/L Alanine Aminotransferase (ALT/SGPT) 22 U/L Alkaline Phosphatase 73 U/L Total Protein 6.8 gm/dl Albumin 1.8 gm/dl Test 07/29/17 11:10 07/29/17 16:13 Bedside Glucose 95 mg/dl 128 mg/dl Patient Name: TANIA YOUSIF Unit Number: [id number] Dictated: [id number] Transcribed: 07/28/172147 [facility] Printed Date/Time: [~ rep prt dt]/[~ rep prt tm] [~ rep ct labl] - [~ rep ct ivnm] [facility] [address] [place] [address] Dictated: [id number] Transcribed: 07/28/172147 [employer] Printed Date/Time: [~ rep prt dt]/[~ rep prt tm] [~ rep ct labl] - [~ rep ct ivnm] CERVICAL SPINE MRI HISTORY: Lumbar spine lesions. eval for metastatic disease TECHNIQUE: Multiplanar multisequence MRI of the cervical spine was performed without the use of contrast. COMPARISON STUDY: None. FINDINGS: Visualized posterior fossa is unremarkable. No fracture or subluxation within the cervical spine. Disc spaces are relatively preserved. Prevertebral soft tissues and the C1-C2 interval are intact. The cervical spinal cord is normal in course, caliber, and signal intensity. There is a 1.4 cm expansile lesion seen within the C2 spinous process. No evidence for epidural extension. No additional lesions seen within the cervical spine. C2-C3: No significant central canal or neural foraminal narrowing. C3-C4: No significant central canal or neural foraminal narrowing. C4-C5: No significant central canal or neural foraminal narrowing. C5-C6: Small broad-based posterior disc bulge without significant central canal or neural foraminal narrowing. C6-C7: Small left paracentral focal disc protrusion resulting in mild left neural foraminal narrowing. Some of the exiting nerve root at this level. No significant central canal narrowing. C7-T1: No significant central canal or neural foraminal narrowing. IMPRESSION: 1. A 1.4 cm expansile lesion within the C2 spinous process consistent with a metastatic focus. This does not extend to the epidural space. No additional lesions identified within the cervical spine. 2. No central canal narrowing. 3. No fracture or subluxation within the cervical spine. 4. Degenerative changes as described above. Electronically signed by: Robson Nj M.D. 07/28/2017 9:54 PM Dictated Date/Time: 07/28/2017 9:48 PM The status of this report is Signed. Draft = Not yet reviewed or approved by Radiologist. Signed = Reviewed and approved by Radiologist. <AttendingPhy>Ruben Cavanaugh MD</AttendingPhy> <FamilyPhy>Rob Dodge M.D.</FamilyPhy> <PrimaryPhy>Yosvany Sotomayor M.D.([facility])</PrimaryPhy> < UnitNumber>[id number]</UnitNumber> <VisitNumber>[id number]</VisitNumber> < PatientName>BENJABENTANIA L</PatientName> <DateOfBirth>1965</DateOfBirth> < Location>[facility]</Location> <ServiceDate>07/27/17</ServiceDate> <MNE>ESINDI</MNE> < OrderingPhy>Danielle Anne</OrderingPhy> <OrderingPhyMNE>f rep ord dr mne< /OrderingPhyMNE> <DictatingPhyMNE>f rep dict dr pandya</DictatingPhyMNE> <CCListMNE >f rep ct mne</CCListMNE> <AdmittingPhyMNE>f pt admit dr pandya</AdmittingPhyMNE> < AttendingPhyMNE>f pt attend dr pandya</AttendingPhyMNE> <ConsultingPhyMNE>f pt consult dr pandya</ConsultingPhyMNE> <FamilyPhyMNE>f pt fam dr pandya</FamilyPhyMNE> <OtherPhyMNE>f pt other dr pandya</OtherPhyMNE> < PrimaryPhyMNE>f pt prim care dr pandya</PrimaryPhyMNE> <ReferringPhyMNE>f pt referring dr pandya</ReferringPhyMNE> Assessment and Plan 51-year-old diabetic female with acute onset of back pain without other recent systemic complaints, with large destructive lesion involving L4 and L5, as well as possible cervical and thoracic lesions. Positive blood cultures suggest potential of secondary infection of metastatic lesions. Should have sensitivity data of tomorrow, should continue vancomycin until results available. Will follow.
[2017-07-30] VITALS (7 sets, daily range): BP systolic 102–165; BP diastolic 62–83; PULSE 80–105; TEMP 36.7–38; O2SAT 93–98
[2017-07-30] MEDS ORDERED: VANCOMYCIN TROUGH ONE (00:30)
[2017-07-30] MEDS: OXYCODONE/ACETAMINOPHEN 5-325 TAB PO PRN ×3 (01:01→17:19)
[2017-07-30] MEDS: PIPERACILL/TAZOBAC IV 4.5 GM in DEXTROSE 5% 100ML 100 ML IV SCH ×3 (03:57→20:29)
[2017-07-30] MEDS: LEVOTHYROXINE 125 MCG TAB PO SCH (05:51)
[2017-07-30] MEDS: HEPARIN SOD 5000 UNIT/0.5 ML CARP SQ SCH ×3 (05:51→21:56)
[2017-07-30 07:16] LABS: HEMATOCRIT 26.5 % (37-47); HEMOGLOBIN 8.4 g/dL (12.0-16.0); MEAN CELL VOLUME 91.4 fL (80-100); MEAN CORPUSCULAR HGB CONC 31.7 g/dl (32-36); MEAN PLATELET VOLUME 8.8 fL (7.4-10.4); PLATELET COUNT 247 K/uL (130-400); RED CELL DISTRIBUTION WIDTH CV 15.3 % (11.5-14.5); RED CELL DISTRIBUTION WIDTH SD 50.9 fL (36.4-46.3); WHITE BLOOD COUNT 11.37 K/uL (4.8-10.8)
[2017-07-30] MEDS: METOPROLOL TARTRATE 50 MG TAB PO SCH ×2 (07:19→20:33)
[2017-07-30] MEDS: DOCUSATE SODIUM/SENNA 50/8.6MG TAB PO SCH (07:20)
[2017-07-30] MEDS: PANTOprazole SOD 40 MG TAB PO SCH (07:20)
[2017-07-30] MEDS: INSULIN GLARGINE SOLOSTAR 100 UNITS/ML 3 ML PEN SC SCH (07:21)
[2017-07-30 07:54] LABS: ALBUMIN 1.7 gm/dl (3.4-5.0); CALCIUM 7.8 mg/dl (8.5-10.1); CREATININE 3.44 mg/dl (0.60-1.20); POTASSIUM 4.3 mmol/L (3.5-5.1)
[2017-07-30 07:57] LABS: TOTAL PROTEIN 7.2 gm/dl (6.4-8.2)
[2017-07-30] MEDS: INSULIN ASPART 100 UNITS/ML 3 ML PEN SC SCH ×4 (08:54→21:09)
--- NOTE | 2017-07-30 11:32 | Pharmacy Progress Note ---
Pharmacy Abx Dose Short Note Date of Service Jul 30, 2017. Assessment & Plan Assessment * 51 year old female receiving Vancomycin/Zosyn for treatment of MRSA bacteremia and foot ulcer. Potential secondary infection of metastatic cervical /thoracic lesions. * Day #4 of antimicrobial therapy. * Patient's SCr has been trending up since admission (SCr 2.4 --> 2.99 --> 3.44) . Nephrology consult placed. * ID is consulted Plan Vancomycin * Level of 25.6 mcg/mL is supratherapeutic. * Due to decline in renal function and supratherapeutic vanc level, will switch to dosing based on random levels * Give Vanc 750mg IV x1 dose this afternoon. Will check a random level tomorrow and re-dose when appropriate. * Goal trough level for MRSA bacteremia/ulcer and vanc RUTHY 2: ~18 to 20 mcg/mL * Will re-dose vancomycin when level falls between ~18-22 mcg/mL Zosyn * Zosyn 4.5gm IV x1 dose over 30 min, then * Zosyn 4.5gm IV q8h, extended 4-hr infusion * this more aggressive regimen was chosen d/t obesity (BMI > 35 kg/m2) * CONSIDER DISCONTINUING OR DE-ESCALATING, ERICK IN THE SETTING OF WORSENING RENAL FUNCTION Pharmacy will continue to follow and will adjust dose/frequency as necessary. Thank you.
--- NOTE | 2017-07-30 11:37 | Pharmacy Progress Note ---
Pharmacy Glycemic Short Note 2 Date of Service Jul 30, 2017. OUTPATIENT ANTIDIABETIC REGIMEN: * NPH 34 units w/ breakfast + 46 units at bedtime * Regular insulin 29 units w/ breakfast + 22 units w/ lunch + 28 units at bedtime * A1c = 8.3% ASSESSMENT: * Ms Wilkins is a 51 y/o F with a PMH of recurrent foot infections, CKD stage 3, and uncontrolled DM (currently HbA1C = 8.3% while goal range is 6.6-7.5% based upon Elements of Diabetes Care Scoring Scale) who presents with uncontrolled back pain. She currently has positive blood cultures and possible back infection from this. * Yesterday, Ms Wilkins received around 57 units of insulin (40 of which was basal insulin)- blood sugars ranged from 75-112 mg/dL. The patient's fasting blood sugar today is 86 mg/dL which is slightly increased from yesterday's 75 mg /dL. HOWEVER, most coverage yesterday was basal coverage. * For Lantus, altered sliding scale to 15 units if blood sugar less than 140 mg/ dL and 20 units if blood sugar 140 mg/dL or greater. I am not comfortable with patient receiving more than 40 units of basal insulin currently. Seventy units of basal insulin produced a fasting of 75 mg/dL and 60 units produced a fasting of 86 units. Most coverage these days was basal insulin so will decrease this. * For Novolog, it appeared that carbohydrate coverage was appropriate yesterday so continue scale. PLAN FOR INPATIENT GLYCEMIC CONTROL: * Lantus SQ BID per the following scale: * 15 units if BSG less than 140 * 20 units if BSG 140 or above * Continuing correction factor of 10 mg/dl/unit * Continuing carb ratio of 1 unit per 3 grams CHO consumed * Continuing goal range of Low 120 mg/dL - High 160 mg/dL PLAN FOR DISCHARGE: * Current A1c (8.3%) reflects suboptimal glycemic control as an outpatient. * May consider adjusting insulin dosing on discharge or counseling on dietary intake as this may be a confounder. * Recommend close f/u with PCP after discharge for DM management and optimizing A1c.
[2017-07-30] MEDS: SODIUM CHLORIDE 0.9% 1000ML 1,000 ML IV SCH ×2 (12:11→17:19)
--- NOTE | 2017-07-30 12:39 | Nephrology Consultation ---
Nephrology Consultation Date of Consultation: Jul 30, 2017. Attending Physician: Dr Cavanaugh Requesting Physician: Dr Cavanaugh Reason for Consultation: MARK ANTHONY on ckd History of Present Illness 51 year old female admitted 07/27 for further evaluation of intractable low back pain ongoing despite multiple evaluations and found to have large destructive lesions of bodies of L4L5 and MRSA bacteremia. The appearance of the bony lesions is concerning for metastatic disease. She has CKD 3 w/ nephrotic range proteinuria and a baseline creatinine about 1.6 as OF 04/2017 and follows w/ Dr. Bermudez. 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 Her presenting creatinine was 2.4; her creatinine trended up to 3.0 yesterday and to 3.4 today. She is receiving vancomycin, zosyn, and NS at 100 mL hourly. Her vanco trough on 07/30 just after midnight is 26. She has ongoing fevers, today 38.0; was 39.4 on presentation; no extremes of blood pressure or heart rate. Also of note she had been discharged from [facility] 07/20 after an obs for atypical chest pain and uncontrolled HTN: she was started on metoprolol; she did have CT angiography of chest at that admission, negative for PE. Her presenting creatinine was 1.8 , was 1.9 when she left; her outpt losartan was continued at d/c. Also seen in [facility] ER 07/24 w/ back pain > no labs done at that time; she was given an opiate rx, advised to use tylenol and to f/u w/ PCP. she has continued losartan; denies nsaid use w/ back pain. 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 -chronic diabetic foot ulcers -HTN -hypothyroid -HL -obesity BMI >40 Family History CHF GRANDFATHER Diabetes mellitus FATHER MOTHER Hypertension FATHER GRANDFATHER MS GRANDFATHER Social History Smoking Status: Never Smoker Marital Status: Housing Status: lives with family Occupation Status: disabled Allergies Coded Allergies: No Known Allergies (Verified , 07/27/17) Medications Current Inpatient Medications Medications (Trade) Dose Ordered Sig/Santos Route Start Time Stop Time Status Last Admin Dose Admin Miscellaneous Information (Consult) 1 ea UD PRN N/A 07/27/17 22:15 08/26/17 22:14 Piperacillin Sod/ Tazobactam Sod 4.5 gm/Dextrose 120 ml @ 30 mls/hr Q8H IV 07/28/17 04:00 09/08/17 03:59 07/30/17 03:57 30 MLS/HR Miscellaneous Information (Consult) 1 ea UD PRN N/A 07/27/17 22:15 08/26/17 22:14 Heparin Sodium (Porcine) (Heparin Sq 5000 Unit/0.5ml) 5,000 unit Q8 SQ 07/28/17 06:00 08/27/17 05:59 07/30/17 05:51 5,000 UNIT Sodium Chloride 1,000 ml @ 100 mls/hr Q10H IV 07/28/17 00:00 08/27/17 00:00 07/29/17 15:51 100 MLS/HR Acetaminophen (Tylenol Tab) 650 mg Q4H PRN PO 07/27/17 22:15 08/26/17 22:14 07/28/17 23:58 650 MG Al Hydrox/Mg Hydrox/Simethicone (Maalox Max Susp) 15 ml Q4H PRN PO 07/27/17 22:15 08/26/17 22:14 Magnesium Hydroxide (Milk Of Magnesia Susp) 30 ml Q12H PRN PO 07/27/17 22:15 08/26/17 22:14 Ondansetron HCl (Zofran Inj) 4 mg Q6H PRN IV 07/27/17 22:15 08/26/17 22:14 Polyethylene (Miralax Powder Packet) 17 gm DAILY PRN PO 07/27/17 22:15 08/26/17 22:14 Glucose (Glucose Chew Tab) 4-8 Tablets 4 Tabl... UD PRN PO 07/27/17 22:15 08/26/17 22:14 Hydromorphone HCl (Dilaudid Inj) 1 mg Q6 PRN IV 07/27/17 22:30 08/10/17 22:29 07/28/17 19:48 1 MG Hydromorphone HCl (Dilaudid Inj) 2 mg Q8 PRN IV 07/27/17 22:30 08/10/17 22:29 Oxycodone/ Acetaminophen (Percocet 5-325mg Tab) 1 tab Q4H PRN PO 07/27/17 22:30 08/10/17 22:29 07/29/17 08:32 1 TAB Oxycodone/ Acetaminophen (Percocet 5-325mg Tab) 2 tab Q4H PRN PO 07/27/17 22:30 08/10/17 22:29 07/30/17 07:19 2 TAB Glucose (Glucose 40% Gel) 15-30 GRAMS 15 GRAMS... UD PRN PO 07/27/17 22:45 08/26/17 22:44 Dextrose (Dextrose 50% 50ML Syringe) 25-50ML OF 50% DW IV FOR... UD PRN IV 07/27/17 22:45 08/26/17 22:44 Glucagon (Glucagon Inj) 1 mg UD PRN SQ 07/27/17 22:45 08/26/17 22:44 Miscellaneous Information (Consult Glycemic Management Pharmacy) 1 ea UD PRN N/A 07/27/17 22:52 08/26/17 22:51 Insulin Aspart (novoLOG ASPART) SLIDING SCALE ACHS SC 07/28/17 06:45 08/27/17 06:59 07/29/17 17:40 9 UNITS Levothyroxine Sodium (Synthroid Tab) 125 mcg DAILYBB PO 07/28/17 11:00 08/27/17 10:59 07/30/17 05:51 125 MCG Metoprolol Tartrate (Lopressor Tab) 50 mg BID PO 07/28/17 09:00 08/27/17 08:59 07/30/17 07:19 50 MG Pantoprazole Sodium (Protonix Tab) 40 mg DAILY PO 07/28/17 09:00 08/27/17 08:59 07/30/17 07:20 40 MG Vancomycin HCl 1750 mg/Sodium Chloride 535 ml @ 200 mls/hr Q24H IV 07/29/17 01:00 09/09/17 00:59 Future Hold 07/29/17 03:54 200 MLS/HR Insulin Glargine (Lantus Solostar Pen) SEE PROTOCOL TEXT BID SC 07/28/17 21:00 08/27/17 20:59 07/30/17 07:21 20 UNITS Senna/Docusate Sodium (Senokot S Tab) 1 tab QAM PO 07/30/17 09:00 08/29/17 08:59 07/30/17 07:20 1 TAB Home Meds and Scripts Medications Dose Route/Sig Max Daily Dose Days Date Category Levothyroxine Sodium 125 Mcg Tab 125 Mcg PO DAILY 07/27/17 Reported Cozaar (Losartan Potassium) 25 Mg Tab 25 Mg PO DAILY 07/27/17 Reported Lopressor (Metoprolol Tartrate) 50 Mg Tab 50 Mg PO BID 07/24/17 Reported Prilosec (Omeprazole) 20 Mg Cap 20 Mg PO DAILY 07/24/17 Reported Novolin N (Insulin Human NPH) 100 Units/Ml Susp 46 Units SQ HS 07/24/17 Reported Novolin N (Insulin Human NPH) 100 Units/Ml Susp 34 Units SQ QAM 07/24/17 Reported Novolin R (Insulin Human Regular) 1 Ea Ea 28 Units SQ HS 07/24/17 Reported Novolin R (Insulin Human Regular) 1 Unit/1 Ml Inj 22 Units SQ DAILY@1200 07/24/17 Reported Novolin R (Insulin Human Regular) 1 Ea Ea 29 Units SQ QAM 07/24/17 Reported Review of Systems Constitutional: + fever, + chills, + fatigue, No weakness Eyes: No worsening of vision ENT: No hearing loss Respiratory: No shortness of breath, No dyspnea on exertion, No dyspnea at rest Cardiac: + edema (stable chronic asymmetric), No chest pain, No orthopnea Abdomen: No pain, No nausea, No vomiting, No diarrhea Musculoskeletal: + problem reported (back pain ongoing) Neuro: No memory loss, No weakness, No balance problems Psych: No depression symptoms, No anxiety Heme: No abnormal bleeding/bruising Endo: + fatigue Skin: + problem reported (stable chronic L foot wounds) Physical Exam Date Time Temp Pulse Resp B/P (MAP) Pulse Ox O2 Delivery O2 Flow Rate FiO2 07/30/17 07:30 38.0 105 20 165/82 (109) 96 Room Air 3.0 07/30/17 04:00 Nasal Cannula 2.0 07/30/17 03:39 37.3 80 17 119/62 (81) 96 Nasal Cannula 3.0 07/29/17 23:59 Nasal Cannula 2.0 07/29/17 23:23 37.8 86 18 116/76 (89) 98 Nasal Cannula 3.0 07/29/17 20:00 Nasal Cannula 2.0 07/29/17 19:54 37.4 86 18 127/66 (86) 99 Nasal Cannula 2.0 07/29/17 16:00 Nasal Cannula 2.0 07/29/17 16:00 37.2 82 18 122/79 (93) 99 Nasal Cannula 3.0 07/29/17 15:36 36.9 78 18 132/78 (96) 99 Nasal Cannula 3.0 07/29/17 12:00 96 Nasal Cannula 2.0 07/29/17 12:00 Nasal Cannula 2.0 07/29/17 11:17 37.1 92 20 138/79 (98) 90 Room Air 07/29/17 08:30 Room Air 2.0 07/29/17 08:00 96 Nasal Cannula 2.0 General Appearance: WD/WN, no apparent distress, + obese (up in chair on ra) Eyes: EOMI ENT: hearing grossly normal Neck: supple Respiratory/Chest: no respiratory distress, + decreased breath sounds, + crackles (bibasilar) Cardiovascular: regular rate, rhythm Abdomen: normal bowel sounds, non tender, soft (no woodruff) Extremities: + pedal edema (L foot and leg 1+; trace on R leg) Neurologic/Psych: alert, normal mood/affect, oriented x 3 Skin: + pertinent finding (wound L foot dressed/ tranverse arch) Diagnostics Last 24 Hours Test 07/29/17 11:10 07/29/17 16:13 07/29/17 20:07 07/30/17 00:14 Bedside Glucose 95 mg/dl 128 mg/dl 112 mg/dl Vancomycin Level Trough 25.6 mcg/ml Test 07/30/17 06:42 07/30/17 06:54 White Blood Count 11.37 K/uL Red Blood Count 2.90 M/uL Hemoglobin 8.4 g/dL Hematocrit 26.5 % Mean Corpuscular Volume 91.4 fL Mean Corpuscular Hemoglobin 29.0 pg Mean Corpuscular Hemoglobin Concent 31.7 g/dl RDW Standard Deviation 50.9 fL RDW Coefficient of Variation 15.3 % Platelet Count 247 K/uL Mean Platelet Volume 8.8 fL Bedside Glucose 86 mg/dl Diagnostic Radiology: Imaging reviewed; no acute renal abnormalities CT chest > no acute CP process; scattered bibasilar atelectasis Assessment & Plan 51 y/o F w/ DM w/ triopathy, chronic diabetic foot wounds, CKD 3 w/ baseline creatinine 1.6 and nephrotic range proteinuria who was exposed to contrast and in MARK ANTHONY prior to admission based on available information admitted 07/27 with large destructive lesions of vertebral L4-L5 bodies also w/ MRSA bacteremia and progressive MARK ANTHONY on CKD. Inf dzs, ortho, and heme onc are following. MARK ANTHONY on CKD3, rapidly progressive and nonoliguric No obstruction or infection concerns. Hypoalbuminemia noted and may relate in part to non nephrotic processes > had albumin low/mid 3's in setting of nephrotic syndrome in 2017. Her chemistries, anemia, blood pressures, current meds acceptable, though her worsening creatinine trend is concerning. No infarcts on CT imaging. >Presume ATN multifactorial in the setting of possible contrast induced nephropathy from prior to admission, ongoing use of losartan prior to admission , one time nsaid dose at admission. No other nsaids. Her vancomycin levels have been acceptable though continued great care needs to be taken w/ dosing and will d/w pharmacy Glomerular process overlying nephrotic range proteinuria less likely but also a possibility, alanna in setting of bacteremia and / or possible malignancy -will order prot/creat ratio > if similar to prior ranges (3-6 gm daily) would not pursue further serologies alanna as she is a poor biopsy candidate at this time >daily bmp and strict I/O while in house -no indication for acute dialysis; cannot rule out need and have concerns she may need given rapid worsening -do not give further vanco without first verifying trough/level - pharmacy to recheck just before small dose this pm -defer to inf dzs on abtx choices, on timing of f/u cxs -f/u oncology and ortho recs >> note that [place] [facility] being contemplated Appreciate consult; will follow with you. Care coordinated w/ Dr. Cavanaugh.
--- NOTE | 2017-07-30 13:59 | Progress Note ---
Medicine Progress Note Date & Time of Visit: Jul 30, 2017 at 13:33. Subjective seen resting in bed, comfortable states she feels ok, just tired back pain well controlled denies fever/chills, nausea, chest pain, dyspnea, abdominal pain no other symptoms Objective Last 8 Hrs Date Time Temp Pulse Resp B/P (MAP) Pulse Ox O2 Delivery O2 Flow Rate FiO2 07/30/17 12:00 Nasal Cannula 2.0 07/30/17 11:19 36.8 80 20 107/72 (84) 98 Nasal Cannula 3.0 07/30/17 08:00 Nasal Cannula 2.0 07/30/17 07:30 38.0 105 20 165/82 (109) 96 Room Air 3.0 Physical Exam: General-oriented 3, speaking sentences, not in distress Head- atraumatic Eyes- anicteric Neck-no JVD Lungs- clear breath sounds bilaterally , no rales/wheezes Heart- regular rhythm; no murmur, normal rate Abdomen- normal bowel sounds, soft, nontender Extremities-left foot: Active ulcer on the lateral plantar aspect open no discharge or bleeding noted no pretibial edema, no calf tenderness; peripheral pulses intact Neuro- alert, oriented x 3; no gross focal neurologic deficit Skin- warm & dry Laboratory Results: Last 24 Hours Test 07/29/17 16:13 07/29/17 20:07 07/30/17 00:14 07/30/17 06:42 Bedside Glucose 128 mg/dl 112 mg/dl Vancomycin Level Trough 25.6 mcg/ml White Blood Count 11.37 K/uL Red Blood Count 2.90 M/uL Hemoglobin 8.4 g/dL Hematocrit 26.5 % Mean Corpuscular Volume 91.4 fL Mean Corpuscular Hemoglobin 29.0 pg Mean Corpuscular Hemoglobin Concent 31.7 g/dl RDW Standard Deviation 50.9 fL RDW Coefficient of Variation 15.3 % Platelet Count 247 K/uL Mean Platelet Volume 8.8 fL Sodium Level 135 mmol/L Potassium Level 4.3 mmol/L Chloride Level 106 mmol/L Carbon Dioxide Level 21 mmol/L Anion Gap 8.0 mmol/L Blood Urea Nitrogen 33 mg/dl Creatinine 3.44 mg/dl Est Creatinine Clear Calc Drug Dose 27.2 ml/min Estimated GFR () 17.1 Estimated GFR (Non- 14.7 BUN/Creatinine Ratio 9.4 Random Glucose 82 mg/dl Calcium Level 7.8 mg/dl Magnesium Level 2.5 mg/dl Total Bilirubin 1.0 mg/dl Direct Bilirubin 0.3 mg/dl Aspartate Amino Transf (AST/SGOT) 12 U/L Alanine Aminotransferase (ALT/SGPT) 18 U/L Alkaline Phosphatase 67 U/L Total Protein 7.2 gm/dl Albumin 1.7 gm/dl Test 07/30/17 06:54 07/30/17 10:39 Bedside Glucose 86 mg/dl 140 mg/dl Assessment & Plan 51-year-old female with history of diabetes type 2 on insulin, chronic left foot wound, hypertension, CKD stage III, resenting with low back pain with fevers. FEVER Met criteria for SIRS Possible sources include: POSSIBLE METASTATIC VS. INFECTIOUS PROCESS IN THE LUMBAR SPINE L4-L5 MRSA BACTEREMIA CT lumbar spine noted: Large destructive bony lesions are suggested in the bodies of L4 and L5. There is associated cortical breakthrough. Although nonspecific, the appearance is highly concerning for bony metastatic disease. Blood cultures positive for MRSA Left foot wound culture positive for MRSA Continue day #3 vancomycin and Zosyn ID consulted Question metastatic process, CT abdomen and chest unrevealing, history of thyroid cancer Orthopedic spine consulted MRI cervical thoracic lumbar spine: Possible bone metastases (full report in the procedure section) Ortho recommends CT guided bone biopsy, transfer to Tertiary level of care Discussed case with Dr. Wilder- Hospitalist in [facility] she kindly accepted the patient Discussed plan of care with patient at length she is agreeable and comfortable with the plan of care Pain well controlled Continue analgesics Add laxative MRSA INFECTION, LEFT FOOT WOUND ID consulted On antibiotics as noted above Wound care consult ACUTE RENAL FAILURE ON CKD 3 Baseline creatinine 1.6- > 2.9--> 3.4 Likely from prerenal etiology, infection, possible contrast-induced last week's admission Continue IV NSS Nephrology consulted monitor crea DIABETES TYPE 2 A1c 8.3 Hold NPH and regular Insulin sliding scale for now Glycemic control consul placed HYPERTENSION Hold losartan for acute kidney injury Continue metoprolol Monitor DVT prophylaxis Heparin Full code per patient Disposition transfer to [facility] Current Inpatient Medications: Current Inpatient Medications Medications (Trade) Dose Ordered Sig/Santos Route Start Time Stop Time Status Last Admin Dose Admin Miscellaneous Information (Consult) 1 ea UD PRN N/A 07/27/17 22:15 08/26/17 22:14 Piperacillin Sod/ Tazobactam Sod 4.5 gm/Dextrose 120 ml @ 30 mls/hr Q8H IV 07/28/17 04:00 09/08/17 03:59 07/30/17 12:14 30 MLS/HR Miscellaneous Information (Consult) 1 ea UD PRN N/A 07/27/17 22:15 08/26/17 22:14 Heparin Sodium (Porcine) (Heparin Sq 5000 Unit/0.5ml) 5,000 unit Q8 SQ 07/28/17 06:00 08/27/17 05:59 07/30/17 05:51 5,000 UNIT Sodium Chloride 1,000 ml @ 100 mls/hr Q10H IV 07/28/17 00:00 08/27/17 00:00 07/30/17 12:11 100 MLS/HR Acetaminophen (Tylenol Tab) 650 mg Q4H PRN PO 07/27/17 22:15 08/26/17 22:14 07/28/17 23:58 650 MG Al Hydrox/Mg Hydrox/Simethicone (Maalox Max Susp) 15 ml Q4H PRN PO 07/27/17 22:15 08/26/17 22:14 Magnesium Hydroxide (Milk Of Magnesia Susp) 30 ml Q12H PRN PO 07/27/17 22:15 08/26/17 22:14 Ondansetron HCl (Zofran Inj) 4 mg Q6H PRN IV 07/27/17 22:15 08/26/17 22:14 Polyethylene (Miralax Powder Packet) 17 gm DAILY PRN PO 07/27/17 22:15 08/26/17 22:14 Glucose (Glucose Chew Tab) 4-8 Tablets 4 Tabl... UD PRN PO 07/27/17 22:15 08/26/17 22:14 Hydromorphone HCl (Dilaudid Inj) 1 mg Q6 PRN IV 07/27/17 22:30 08/10/17 22:29 07/28/17 19:48 1 MG Hydromorphone HCl (Dilaudid Inj) 2 mg Q8 PRN IV 07/27/17 22:30 08/10/17 22:29 Oxycodone/ Acetaminophen (Percocet 5-325mg Tab) 1 tab Q4H PRN PO 07/27/17 22:30 08/10/17 22:29 07/29/17 08:32 1 TAB Oxycodone/ Acetaminophen (Percocet 5-325mg Tab) 2 tab Q4H PRN PO 07/27/17 22:30 08/10/17 22:29 07/30/17 07:19 2 TAB Glucose (Glucose 40% Gel) 15-30 GRAMS 15 GRAMS... UD PRN PO 07/27/17 22:45 08/26/17 22:44 Dextrose (Dextrose 50% 50ML Syringe) 25-50ML OF 50% DW IV FOR... UD PRN IV 07/27/17 22:45 08/26/17 22:44 Glucagon (Glucagon Inj) 1 mg UD PRN SQ 07/27/17 22:45 08/26/17 22:44 Miscellaneous Information (Consult Glycemic Management Pharmacy) 1 ea UD PRN N/A 07/27/17 22:52 08/26/17 22:51 Insulin Aspart (novoLOG ASPART) SLIDING SCALE ACHS SC 07/28/17 06:45 08/27/17 06:59 07/30/17 12:13 10 UNITS Levothyroxine Sodium (Synthroid Tab) 125 mcg DAILYBB PO 07/28/17 11:00 08/27/17 10:59 07/30/17 05:51 125 MCG Metoprolol Tartrate (Lopressor Tab) 50 mg BID PO 07/28/17 09:00 08/27/17 08:59 07/30/17 07:19 50 MG Pantoprazole Sodium (Protonix Tab) 40 mg DAILY PO 07/28/17 09:00 08/27/17 08:59 07/30/17 07:20 40 MG Senna/Docusate Sodium (Senokot S Tab) 1 tab QAM PO 07/30/17 09:00 08/29/17 08:59 07/30/17 07:20 1 TAB Insulin Glargine (Lantus Solostar Pen) SEE PROTOCOL TEXT BID SC 07/30/17 21:00 08/29/17 20:59 Vancomycin HCl 750 mg/Sodium Chloride 265 ml @ 125 mls/hr TODAY@1600 ONCE IV 07/30/17 16:00 07/30/17 18:07 Future Hold
[2017-07-30] MEDS ORDERED: MAGNESIUM HYDROXIDE SUSP 30 ML UDC PO PRN (14:00)
[2017-07-30] MEDS ORDERED: NVLGIPEN SC (14:01)
[2017-07-30] MEDS ORDERED: HPRIS5M SQ (14:01)
[2017-07-30] MEDS ORDERED: INSDGIPEN SC (14:01)
[2017-07-30] MEDS ORDERED: SENN8.6T7 PO (14:01)
--- NOTE | 2017-07-30 14:04 | Discharge Instructions ---
Discharge Instructions Date of Service Jul 30, 2017. Admission Reason for Admission: Back Pain Discharge Discharge Diagnosis / Problem: VERTEBRAL SPINE LESION- POSSIBLE METASTASES, VS. INFECTIOUS PROCESS Discharge Goals Goal(s): Diagnostic testing, Therapeutic intervention Activity Recommendations Activity Level: Ambulates in room Therapies: Physical Therapy, Occupational Therapy . Additional Information Patient informed of condition: Yes Advance Directives: No (UNKNOWN) DNR: No (PATIENT IS A FULL CODE) Level of Care: Other ([facility]) Communicable Disease: No (POSITIVE FOR MRSA BACTEREMIA, NEEDS CONTACT ISOLATION ) Prognosis: Stable Instructions / Follow-Up Instructions / Follow-Up PLEASE REFER TO ACCOMPANYING HOSPITAL DISCHARGE SUMMARY FOR FULL DETAILS. REFER TO SEPARATE MEDICAL RECONCILIATION SHEET FOR UPDATE INPATIENT MEDICATION LIST. Current Hospital Diet Patient's current hospital diet: AHA Diet (Heart Healthy), Diabetes Type 2 Diet Discharge Diet Recommended Diet: AHA Diet (Heart Healthy), Diabetes Type 2 Diet Procedures Procedures Performed: MRI CERVICAL, THORACIC, LUMBAR SPINE Pending Studies Studies pending at discharge: yes List of pending studies: PLEASE REFER TO HOSPITAL DISCHARGE SUMMARY. Physician Orders On Transfer Special Precautions: PLEASE REFER TO ACCOMPANYING HOSPITAL DISCHARGE SUMMARY FOR FULL DETAILS. REFER TO SEPARATE MEDICAL RECONCILIATION SHEET FOR UPDATE INPATIENT MEDICATION LIST. Laboratory Results Hemoglobin A1c Test 07/28/17 05:08 Range/Units Estimated Average Glucose 192 mg/dl Hemoglobin A1c 8.3 H 4.5-5.6 % Medical Emergencies . Who to Call and When: Medical Emergencies: If at any time you feel your situation is an emergency, please call 911 immediately. . Non-Emergent Contact Non-Emergency issues call your: Primary Care Provider Call Non-Emergent contact if: you have a fever, your pain is not controlled, your pain is worsening, you have any medication questions . Past History Medical & Surgical History: (1) Cholecystectomy (2) Diabetes mellitus type 2 (3) Exchange of intraocular lens (4) Gastroesophageal reflux disease (5) History of - section (6) History of - tubal ligation (7) Open wound (8) Benign hypertension (9) Gastroenteritis (10) Abscess (11) Abscess (12) Shortness of breath (13) Sinusitis (14) Pneumonia (15) Anemia (16) Otitis media (17) Pneumonia (18) Acute renal failure (19) Back pain . "Provider Documentation" section prepared by Ruben Cavanaugh. . Core Measure Problem Core Measures: None
--- NOTE | 2017-07-30 14:09 | Discharge Summary ---
Discharge Summary Date of Service Jul 30, 2017. Discharge Summary Admission Date: Jul 27, 2017 at 22:15 Discharge Date: Jul 31, 2017 Discharge Disposition: Acute care facility Principal Diagnosis: POSSIBLE METASTATIC VS. INFECTIOUS PROCESS IN L4-L5, T6, C2 MRSA BACTEREMIA Secondary Diagnoses/Problems: PLEASE REFER TO HOSPITAL COURSE BELOW. Procedures: (CHEST) THORAX WITHOUT CT DOSE: 2874.78 mGy.cm HISTORY: Metastatic disease. Pain. evaluation for metastatic disease TECHNIQUE: Multiaxial CT images of the chest were performed without contrast. A dose lowering technique was utilized adhering to the principles of ALARA. COMPARISON: None. FINDINGS: Mild bibasilar dependent and platelike atelectatic change. No significant pulmonary nodularity. No significant mediastinal or hilar adenopathy with a lymph node within limitations of an unenhanced scan. IMPRESSION: Scattered basilar atelectatic change. Otherwise negative CT of the chest. CT SCAN OF THE ABDOMEN AND PELVIS WITHOUT CONTRAST CLINICAL HISTORY: Generalized pain. Possible metastatic disease. COMPARISON STUDY: No previous studies for comparison. TECHNIQUE: CT scan of the abdomen and pelvis was performed from the lung bases to the proximal femurs. Images are reviewed in the axial, sagittal, and coronal planes. IV contrast was not administered for this examination. A dose lowering technique was utilized adhering to the principles of ALARA. CT DOSE: FINDINGS: Lower chest: There are dependent atelectatic changes. Liver: The unenhanced liver is normal in size, contour, and attenuation. There is no intrahepatic biliary ductal dilatation. Gallbladder: Surgically absent Spleen: Spleen is enlarged measuring 14.8 cm. No focal masses are visualized on this noncontrast study Pancreas: Unremarkable. Adrenal glands: Unremarkable. Kidneys: No renal, ureteral, or bladder calculi are visualized. Hypodense left renal lesions cannot be further characterized but statistically represent cysts. The largest measures 21 mm. Bowel: There are no transition zones indicate bowel obstruction. There is colonic diverticulosis. There are no acute peridiverticular inflammatory changes. The appendix appears normal. Peritoneum: There is no intraperitoneal free air or abdominal ascites. Vasculature: The abdominal aorta is normal in course and caliber. Adenopathy: Retroperitoneal aortocaval lymph nodes are the upper limits of normal in size Pelvic viscera: There is a 3 cm left ovarian cyst Skeletal structures: There is is a mixed lytic and sclerotic 24 mm L4 lesion. There is an 11 mm lytic L5 lesion. As a 5 mm sclerotic lesion within the L3 vertebra. IMPRESSION: 1. No evidence of bowel obstruction. No evidence of free air 2. No renal, ureteral, or bladder calculi identified 3. Mild splenomegaly 4. 24 mm mixed lytic and sclerotic lesion within the L4 vertebra. Schmorl's node versus 11 mm lytic lesion within the L5 vertebra. 5. Normal appendix. No evidence of acute diverticulitis. THORACIC SPINE MRI HISTORY: Acute back pain. eval for metastatic disease TECHNIQUE: Multiplanar multisequence MRI of the thoracic spine was performed without the use of contrast. COMPARISON: Chest CT 07/27/2017. FINDINGS: There is a single 1.4 cm T2 and T1 hypointense lesion within the right posterior T6 vertebral body. This is consistent with a metastatic focus. No cortical breakthrough or epidural extension identified on this noncontrast study. No fracture or subluxation within the thoracic spine. Mild disc space narrowing within the mid to lower thoracic spine with a few small focal disc protrusions at these levels. However, no significant central canal or neural foraminal narrowing. Paraspinal soft tissues are unremarkable. IMPRESSION: A single 1.4 cm T6 vertebral body lesion consistent with a metastatic focus. No fractures or epidural extension identified. No significant central canal or neural foraminal narrowing. LUMBAR SPINE MRI HISTORY: eval for metastatic disease, CT suspicious TECHNIQUE: Multiplanar multisequence MRI of the lumbar spine was performed without the use of contrast. COMPARISON: Lumbar spine CT 07/27/2017. FINDINGS: For the purpose of the report the L5-S1 disc space will be located on axial image 28 of 31. Confirmation of the L3, L4, and L5 vertebral body lesions. The L3 lesion measures 5 mm. The L4 lesion measures 2.4 cm. The L5 lesion measures 1.8 cm. The L5 lesion results in small focal compression fracture at the anterior superior endplate of L5. No definite epidural or paraspinal extension identified. Subcentimeter retroperitoneal lymph nodes are identified. Mild left paraspinal edema seen from the L3-L5 levels. This is of uncertain clinical significance. Small broad-based posterior disc bulges at L3-L4 and L4-L5. Small focal central disc protrusion at L5-S1. No significant central canal narrowing. The conus terminates at the L1 level. Mild disc space narrowing at L4-L5 and L5-S1. IMPRESSION: 1. Confirmation of the L3, L4, and L5 vertebral body lesions consistent with metastatic disease. No definite epidural or paraspinal extension. No central canal narrowing. 2. Prominent retroperitoneal lymph nodes. 3. Nonspecific left paraspinal edema at the lower lumbar spine. CERVICAL SPINE MRI HISTORY: Lumbar spine lesions. eval for metastatic disease TECHNIQUE: Multiplanar multisequence MRI of the cervical spine was performed without the use of contrast. COMPARISON STUDY: None. FINDINGS: Visualized posterior fossa is unremarkable. No fracture or subluxation within the cervical spine. Disc spaces are relatively preserved. Prevertebral soft tissues and the C1-C2 interval are intact. The cervical spinal cord is normal in course, caliber, and signal intensity. There is a 1.4 cm expansile lesion seen within the C2 spinous process. No evidence for epidural extension. No additional lesions seen within the cervical spine. C2-C3: No significant central canal or neural foraminal narrowing. C3-C4: No significant central canal or neural foraminal narrowing. C4-C5: No significant central canal or neural foraminal narrowing. C5-C6: Small broad-based posterior disc bulge without significant central canal or neural foraminal narrowing. C6-C7: Small left paracentral focal disc protrusion resulting in mild left neural foraminal narrowing. Some of the exiting nerve root at this level. No significant central canal narrowing. C7-T1: No significant central canal or neural foraminal narrowing. IMPRESSION: 1. A 1.4 cm expansile lesion within the C2 spinous process consistent with a metastatic focus. This does not extend to the epidural space. No additional lesions identified within the cervical spine. 2. No central canal narrowing. 3. No fracture or subluxation within the cervical spine. 4. Degenerative changes as described above. Consultations: ORTHO SPINE DR. HOFF, ID DR. AVERY, NEPHROLOGY DR. ROBERTS Pending Studies/Follow-Up: PLEASE REFER TO SEPARATE MEDICAL RECONCILIATION SHEET FOR UPDATED INPATIENT MEDICATION LIST. PLEASE REFER TO HOSPITAL COURSE BELOW. Medication Reconciliation New Medications: Heparin Sod (Porcine) (Heparin Sodium) 5,000 Unit/0.5 Ml Inj 5000 UNIT SQ Q8 for 10 Days Insulin Aspart (Novolog Flexpen) 100 Units/Ml Inj 0 UNITS SC ACHS for 10 Days Insulin Glargine (Lantus Solostar) 100 Unit/Ml Inj 0 UNITS SC BID for 10 Days Sennosides-Docusate Sodium (Senokot S) 1 Tab Tab 1 TAB PO QAM for 10 Days, #10 TAB Continued Medications: Levothyroxine Sodium (Levothyroxine Sodium) 125 Mcg Tab 125 MCG PO DAILY, TAB Metoprolol Tartrate (Lopressor) 50 Mg Tab 50 MG PO BID, TAB Omeprazole (Prilosec) 20 Mg Cap 20 MG PO DAILY, CAP Discontinued Medications: Insulin Human NPH (Novolin N) 100 Units/Ml Susp 34 UNITS SQ QAM Insulin Human NPH (Novolin N) 100 Units/Ml Susp 46 UNITS SQ HS Insulin Human Regular (Novolin R) 1 Ea Ea 29 UNITS SQ QAM Insulin Human Regular (Novolin R) 1 Unit/1 Ml Inj 22 UNITS SQ DAILY@1200 Insulin Human Regular (Novolin R) 1 Ea Ea 28 UNITS SQ HS Losartan Potassium (Cozaar) 25 Mg Tab 25 MG PO DAILY, TAB Admission Information HPI (per Admitting provider): this is a 51 yo F with hx of Type 2 Dm in insulin , chronic lower ext diabetic wound , CKD stage 3 ,dyslipidemia presented to ER with complain of intractable low back pain . Pt was admitted to [facility] last week -had cardiac work up done , seen at [facility] ER on 07/24/17 for low back pain , was discharged with oral pain meds pt denies of any hx of trauma or fall yesterday her pain became un bearable had low grade fever off an on came to ER for evaluation CT of lumber spine shows ; Large destructive bony lesions are suggested in the bodies of L4 and L5. There is associated cortical breakthrough. Although nonspecific, the appearance is highly concerning for bony metastatic disease. pt denies of any recent wt loss , blood in stool , Physical Exam (per Admitting): General Appearance: no apparent distress Head: normocephalic, atraumatic Eyes: PERRL, EOMI, sclerae normal Neck: no carotid bruits, trachea midline Respiratory/Chest: chest non-tender, lungs clear, normal breath sounds Cardiovascular: regular rate, rhythm, no edema, normal peripheral pulses Abdomen/GI: normal bowel sounds, non tender, soft Back: normal inspection, no CVA tenderness, no muscle spasm, + pertinent finding (no palpable tenderenss noted ) Extremities/Musculoskelatal: + pertinent finding (left foot bottom area 2x3 cm circular ulcer with agarwal base /serous drainage ) Neurologic/Psych: no motor/sensory deficits, alert, normal mood/affect, oriented x 3 Hospital Course 51-year-old female with history of diabetes type 2 on insulin, chronic left foot wound, hypertension, CKD stage III, resenting with low back pain with fevers. FEVER Met criteria for SIRS Possible sources include: POSSIBLE METASTATIC VS. INFECTIOUS PROCESS IN THE CERVICAL, THORACIC, LUMBAR MRSA BACTEREMIA CT lumbar spine noted: Large destructive bony lesions are suggested in the bodies of L4 and L5. There is associated cortical breakthrough. Although nonspecific, the appearance is highly concerning for bony metastatic disease. Blood cultures positive for MRSA Left foot wound culture positive for MRSA Continue day #4 vancomycin Zosyn discontinued ID consulted Question metastatic process, CT abdomen and chest unrevealing, history of thyroid cancer Orthopedic spine consulted MRI cervical thoracic lumbar spine: Possible bone metastases (full report in the procedure section) Ortho recommends CT guided bone biopsy, transfer to Tertiary level of care Discussed case with Dr. Wilder- Hospitalist in [facility] she kindly accepted the patient Discussed plan of care with patient at length she is agreeable and comfortable with the plan of care Pain well controlled Continue analgesics MRSA INFECTION, LEFT FOOT WOUND ID consulted On antibiotics as noted above Wound care consult ACUTE RENAL FAILURE ON CKD 3 Baseline creatinine 1.6- > 2.9--> 3.4--> 3.31 Likely from prerenal etiology, infection, possible contrast-induced last week's admission Continue IV NSS Nephrology consulted monitor crea ANEMIA, NORMOCHROMIC, NORMOCYTIC from Renal Failure? no obvious signs of bleeding Hg 7.5 1 unit pRBC ordered monitor closely DIABETES TYPE 2 A1c 8.3 Hold NPH and regular Insulin sliding scale for now Glycemic control consult placed HYPERTENSION Hold losartan for acute kidney injury Continue metoprolol Monitor DVT prophylaxis Heparin Full code per patient Disposition transfer to [facility] Total time spent on discharge = 45 MINUTES This includes examination of the patient, discharge planning, medication reconciliation, and communication with other providers. Discharge Instructions Discharge Instructions Date of Service Jul 30, 2017. Admission Reason for Admission: Back Pain Discharge Discharge Diagnosis / Problem: VERTEBRAL SPINE LESION- POSSIBLE METASTASES, VS. INFECTIOUS PROCESS Discharge Goals Goal(s): Diagnostic testing, Therapeutic intervention Activity Recommendations Activity Level: Ambulates in room Therapies: Physical Therapy, Occupational Therapy . Additional Information Patient informed of condition: Yes Advance Directives: No (UNKNOWN) DNR: No (PATIENT IS A FULL CODE) Level of Care: Other ([facility]) Communicable Disease: No (POSITIVE FOR MRSA BACTEREMIA, NEEDS CONTACT ISOLATION ) Prognosis: Stable Instructions / Follow-Up Instructions / Follow-Up PLEASE REFER TO ACCOMPANYING HOSPITAL DISCHARGE SUMMARY FOR FULL DETAILS. REFER TO SEPARATE MEDICAL RECONCILIATION SHEET FOR UPDATE INPATIENT MEDICATION LIST. Current Hospital Diet Patient's current hospital diet: AHA Diet (Heart Healthy), Diabetes Type 2 Diet Discharge Diet Recommended Diet: AHA Diet (Heart Healthy), Diabetes Type 2 Diet Procedures Procedures Performed: MRI CERVICAL, THORACIC, LUMBAR SPINE Pending Studies Studies pending at discharge: yes List of pending studies: PLEASE REFER TO HOSPITAL DISCHARGE SUMMARY. Physician Orders On Transfer Special Precautions: PLEASE REFER TO ACCOMPANYING HOSPITAL DISCHARGE SUMMARY FOR FULL DETAILS. REFER TO SEPARATE MEDICAL RECONCILIATION SHEET FOR UPDATE INPATIENT MEDICATION LIST. Laboratory Results Hemoglobin A1c Test 07/28/17 05:08 Range/Units Estimated Average Glucose 192 mg/dl Hemoglobin A1c 8.3 H 4.5-5.6 % Medical Emergencies . Who to Call and When: Medical Emergencies: If at any time you feel your situation is an emergency, please call 911 immediately. . Non-Emergent Contact Non-Emergency issues call your: Primary Care Provider Call Non-Emergent contact if: you have a fever, your pain is not controlled, your pain is worsening, you have any medication questions . Past History Medical & Surgical History: (1) Cholecystectomy (2) Diabetes mellitus type 2 (3) Exchange of intraocular lens (4) Gastroesophageal reflux disease (5) History of - section (6) History of - tubal ligation (7) Open wound (8) Benign hypertension (9) Gastroenteritis (10) Abscess (11) Abscess (12) Shortness of breath (13) Sinusitis (14) Pneumonia (15) Anemia (16) Otitis media (17) Pneumonia (18) Acute renal failure (19) Back pain . "Provider Documentation" section prepared by Ruben Cavanaugh. . Core Measure Problem Core Measures: None
--- NOTE | 2017-07-30 14:26 | Infectious Disease Progress Nt ---
Progress Note Date of Service Jul 30, 2017. Subjective Pt evaluation today including: conversation w/ patient, physical exam, chart review, lab review, review of studies, conversation w/ philatelic consultant, review of inpatient medication list Patient offers no new specific complaints today. States the back pain is improved. Plans for transfer noted. Blood cultures positive for MRSA. All Other Systems: Reviewed and Negative Medications Current Inpatient Medications Medications (Trade) Dose Ordered Sig/Santos Route Start Time Stop Time Status Last Admin Dose Admin Miscellaneous Information (Consult) 1 ea UD PRN N/A 07/27/17 22:15 08/26/17 22:14 Piperacillin Sod/ Tazobactam Sod 4.5 gm/Dextrose 120 ml @ 30 mls/hr Q8H IV 07/28/17 04:00 09/08/17 03:59 07/30/17 12:14 30 MLS/HR Miscellaneous Information (Consult) 1 ea UD PRN N/A 07/27/17 22:15 08/26/17 22:14 Heparin Sodium (Porcine) (Heparin Sq 5000 Unit/0.5ml) 5,000 unit Q8 SQ 07/28/17 06:00 08/27/17 05:59 07/30/17 14:12 5,000 UNIT Sodium Chloride 1,000 ml @ 100 mls/hr Q10H IV 07/28/17 00:00 08/27/17 00:00 07/30/17 12:11 100 MLS/HR Acetaminophen (Tylenol Tab) 650 mg Q4H PRN PO 07/27/17 22:15 08/26/17 22:14 07/28/17 23:58 650 MG Al Hydrox/Mg Hydrox/Simethicone (Maalox Max Susp) 15 ml Q4H PRN PO 07/27/17 22:15 08/26/17 22:14 Magnesium Hydroxide (Milk Of Magnesia Susp) 30 ml Q12H PRN PO 07/27/17 22:15 08/26/17 22:14 Ondansetron HCl (Zofran Inj) 4 mg Q6H PRN IV 07/27/17 22:15 08/26/17 22:14 Polyethylene (Miralax Powder Packet) 17 gm DAILY PRN PO 07/27/17 22:15 08/26/17 22:14 Glucose (Glucose Chew Tab) 4-8 Tablets 4 Tabl... UD PRN PO 07/27/17 22:15 08/26/17 22:14 Hydromorphone HCl (Dilaudid Inj) 1 mg Q6 PRN IV 07/27/17 22:30 08/10/17 22:29 07/28/17 19:48 1 MG Hydromorphone HCl (Dilaudid Inj) 2 mg Q8 PRN IV 07/27/17 22:30 08/10/17 22:29 Oxycodone/ Acetaminophen (Percocet 5-325mg Tab) 1 tab Q4H PRN PO 07/27/17 22:30 08/10/17 22:29 07/29/17 08:32 1 TAB Oxycodone/ Acetaminophen (Percocet 5-325mg Tab) 2 tab Q4H PRN PO 07/27/17 22:30 08/10/17 22:29 07/30/17 07:19 2 TAB Glucose (Glucose 40% Gel) 15-30 GRAMS 15 GRAMS... UD PRN PO 07/27/17 22:45 08/26/17 22:44 Dextrose (Dextrose 50% 50ML Syringe) 25-50ML OF 50% DW IV FOR... UD PRN IV 07/27/17 22:45 08/26/17 22:44 Glucagon (Glucagon Inj) 1 mg UD PRN SQ 07/27/17 22:45 08/26/17 22:44 Miscellaneous Information (Consult Glycemic Management Pharmacy) 1 ea UD PRN N/A 07/27/17 22:52 08/26/17 22:51 Insulin Aspart (novoLOG ASPART) SLIDING SCALE ACHS SC 07/28/17 06:45 08/27/17 06:59 07/30/17 12:13 10 UNITS Levothyroxine Sodium (Synthroid Tab) 125 mcg DAILYBB PO 07/28/17 11:00 08/27/17 10:59 07/30/17 05:51 125 MCG Metoprolol Tartrate (Lopressor Tab) 50 mg BID PO 07/28/17 09:00 08/27/17 08:59 07/30/17 07:19 50 MG Pantoprazole Sodium (Protonix Tab) 40 mg DAILY PO 07/28/17 09:00 08/27/17 08:59 07/30/17 07:20 40 MG Senna/Docusate Sodium (Senokot S Tab) 1 tab QAM PO 07/30/17 09:00 08/29/17 08:59 07/30/17 07:20 1 TAB Insulin Glargine (Lantus Solostar Pen) SEE PROTOCOL TEXT BID SC 07/30/17 21:00 08/29/17 20:59 Vancomycin HCl 750 mg/Sodium Chloride 265 ml @ 125 mls/hr TODAY@1600 ONCE IV 07/30/17 16:00 07/30/17 18:07 Future Hold Magnesium Hydroxide (Milk Of Magnesia Susp) 30 ml Q6H PRN PO 07/30/17 14:00 08/29/17 13:59 UNV Objective Vital Signs Date Time Temp Pulse Resp B/P (MAP) Pulse Ox O2 Delivery O2 Flow Rate FiO2 07/30/17 12:00 Nasal Cannula 2.0 07/30/17 11:19 36.8 80 20 107/72 (84) 98 Nasal Cannula 3.0 07/30/17 08:00 Nasal Cannula 2.0 07/30/17 07:30 38.0 105 20 165/82 (109) 96 Room Air 3.0 07/30/17 04:00 Nasal Cannula 2.0 07/30/17 03:39 37.3 80 17 119/62 (81) 96 Nasal Cannula 3.0 07/29/17 23:59 Nasal Cannula 2.0 07/29/17 23:23 37.8 86 18 116/76 (89) 98 Nasal Cannula 3.0 07/29/17 20:00 Nasal Cannula 2.0 07/29/17 19:54 37.4 86 18 127/66 (86) 99 Nasal Cannula 2.0 07/29/17 16:00 Nasal Cannula 2.0 07/29/17 16:00 37.2 82 18 122/79 (93) 99 Nasal Cannula 3.0 07/29/17 15:36 36.9 78 18 132/78 (96) 99 Nasal Cannula 3.0 Physical Exam General Appearance: WD/WN, no apparent distress Eyes: normal inspection, EOMI, sclerae normal ENT: normal ENT inspection, pharynx normal Neck: supple, no adenopathy, thyroid normal, trachea midline Respiratory/Chest: chest non-tender, lungs clear, normal breath sounds, no respiratory distress Cardiovascular: regular rate, rhythm, no gallop, no murmur Abdomen: normal bowel sounds, non tender, soft, no organomegaly Extremities: non-tender, no calf tenderness Neurologic/Psychiatric: alert, oriented x 3 Skin: normal color, no rash Lymphatic: no adenopathy Laboratory Results Last 24 Hours Test 07/29/17 16:13 07/29/17 20:07 07/30/17 00:14 07/30/17 06:42 Bedside Glucose 128 mg/dl 112 mg/dl Vancomycin Level Trough 25.6 mcg/ml White Blood Count 11.37 K/uL Red Blood Count 2.90 M/uL Hemoglobin 8.4 g/dL Hematocrit 26.5 % Mean Corpuscular Volume 91.4 fL Mean Corpuscular Hemoglobin 29.0 pg Mean Corpuscular Hemoglobin Concent 31.7 g/dl RDW Standard Deviation 50.9 fL RDW Coefficient of Variation 15.3 % Platelet Count 247 K/uL Mean Platelet Volume 8.8 fL Sodium Level 135 mmol/L Potassium Level 4.3 mmol/L Chloride Level 106 mmol/L Carbon Dioxide Level 21 mmol/L Anion Gap 8.0 mmol/L Blood Urea Nitrogen 33 mg/dl Creatinine 3.44 mg/dl Est Creatinine Clear Calc Drug Dose 27.2 ml/min Estimated GFR () 17.1 Estimated GFR (Non- 14.7 BUN/Creatinine Ratio 9.4 Random Glucose 82 mg/dl Calcium Level 7.8 mg/dl Magnesium Level 2.5 mg/dl Total Bilirubin 1.0 mg/dl Direct Bilirubin 0.3 mg/dl Aspartate Amino Transf (AST/SGOT) 12 U/L Alanine Aminotransferase (ALT/SGPT) 18 U/L Alkaline Phosphatase 67 U/L Total Protein 7.2 gm/dl Albumin 1.7 gm/dl Test 07/30/17 06:54 07/30/17 10:39 Bedside Glucose 86 mg/dl 140 mg/dl Assessment and Plan 51-year-old diabetic female with acute onset of back pain without other recent systemic complaints, with large destructive lesion involving L4 and L5, as well as possible cervical and thoracic lesions. Positive blood cultures with MRSA suggests potential of secondary infection of metastatic lesions versus primary infection. Continue vancomycin, for transfer to [facility]. Will need echocardiogram.
[2017-07-30] MEDS ORDERED: VANCOMYCIN INJ 750 MG in SODIUM CHLORIDE 0.9% 250ML 250 ML IV ONE (16:00)
[2017-07-30] MEDS: ACETAMINOPHEN 325 MG TAB PO PRN (20:32)
[2017-07-30] MEDS ORDERED: INSULIN GLARGINE SOLOSTAR 100 UNITS/ML 3 ML PEN SC SCH (21:00)
[2017-07-31] VITALS (8 sets, daily range): BP systolic 111–133; BP diastolic 71–82; PULSE 76–90; TEMP 36.5–37.2; O2SAT 91–100
[2017-07-31] MEDS: SODIUM CHLORIDE 0.9% 1000ML 1,000 ML IV SCH (00:52)
[2017-07-31] MEDS: PIPERACILL/TAZOBAC IV 4.5 GM in DEXTROSE 5% 100ML 100 ML IV SCH ×2 (03:20→11:43)
[2017-07-31] MEDS: ACETAMINOPHEN 325 MG TAB PO PRN (03:20)
[2017-07-31 05:52] LABS: HEMATOCRIT 22.9 % (37-47); HEMOGLOBIN 7.4 g/dL (12.0-16.0); MEAN CELL VOLUME 89.8 fL (80-100); MEAN CORPUSCULAR HGB CONC 32.3 g/dl (32-36); MEAN PLATELET VOLUME 8.8 fL (7.4-10.4); PLATELET COUNT 228 K/uL (130-400); RED CELL DISTRIBUTION WIDTH CV 15.2 % (11.5-14.5); RED CELL DISTRIBUTION WIDTH SD 50.3 fL (36.4-46.3); WHITE BLOOD COUNT 10.62 K/uL (4.8-10.8)
[2017-07-31] MEDS: LEVOTHYROXINE 125 MCG TAB PO SCH (06:10)
[2017-07-31 06:24] LABS: ALBUMIN 1.6 gm/dl (3.4-5.0); CALCIUM 7.3 mg/dl (8.5-10.1); CREATININE 3.31 mg/dl (0.60-1.20)
[2017-07-31 06:26] LABS: TOTAL PROTEIN 6.9 gm/dl (6.4-8.2)
[2017-07-31] MEDS: DOCUSATE SODIUM/SENNA 50/8.6MG TAB PO SCH (08:32)
[2017-07-31] MEDS: PANTOprazole SOD 40 MG TAB PO SCH (08:32)
[2017-07-31] MEDS: METOPROLOL TARTRATE 50 MG TAB PO SCH (08:32)
[2017-07-31] MEDS: INSULIN ASPART 100 UNITS/ML 3 ML PEN SC SCH ×3 (08:56→17:54)
[2017-07-31] MEDS: HEPARIN SOD 5000 UNIT/0.5 ML CARP SQ SCH (08:56)
[2017-07-31] MEDS ORDERED: INSULIN GLARGINE SOLOSTAR 100 UNITS/ML 3 ML PEN SC SCH (09:00)
[2017-07-31] MEDS ORDERED: VANCOMYCIN INJ 1,000 MG in SODIUM CHLORIDE 0.9% 250ML 250 ML IV ONE (09:00)
[2017-07-31] MEDS: OXYCODONE/ACETAMINOPHEN 5-325 TAB PO PRN (11:44)
[2017-07-31 12:51] LABS: HEMATOCRIT 23.5 % (37-47); HEMOGLOBIN 7.5 g/dL (12.0-16.0)
--- NOTE | 2017-07-31 16:01 | Pharmacy Progress Note ---
Pharmacy Abx Dose Short Note Date of Service Jul 31, 2017. Assessment & Plan Assessment 51 year old female receiving Vancomycin for treatment of MRSA bacteremia and foot ulcer. Potential secondary infection of metastatic cervical/thoracic lesions. Renal function slightly improved from yesterday. Day # 5 of antimicrobial therapy. Plan Vancomycin * Trough level of 20 mcg/mL is therapeutic * Ordered vancomycin 1000 mg x 1. * Random vanc level ordered for 2029 this evening. * Goal trough level: 15-20 mcg/mL Zosyn was discontinued per ID. Pharmacy will continue to follow and will adjust dose/frequency as necessary. Thank you.
--- NOTE | 2017-07-31 17:51 | Progress Note ---
Medicine Progress Note Date & Time of Visit: Jul 31, 2017 at 17:44. Subjective seen resting in bed, comfortable not in distress states her back pain is improving no new pain denies bleeding, melena just feels tired denies other symptoms Objective Last 8 Hrs Date Time Temp Pulse Resp B/P (MAP) Pulse Ox O2 Delivery O2 Flow Rate FiO2 07/31/17 17:26 36.5 81 18 124/77 100 07/31/17 16:00 Room Air 07/31/17 15:00 36.5 78 18 133/78 (96) 94 Room Air 07/31/17 12:00 Room Air 07/31/17 11:32 37.0 76 20 111/71 (84) 93 Room Air Physical Exam: General-oriented 3, speaking sentences, not in distress Eyes- anicteric Neck-no JVD Lungs- clear breath sounds bilaterally Heart- regular rhythm; no murmur, normal rate Abdomen- normal bowel sounds, soft, nontender Extremities-left foot: Active ulcer on the lateral plantar aspect open no discharge or bleeding noted no pretibial edema, no calf tenderness; peripheral pulses intact Neuro- alert, oriented x 3; no gross focal neurologic deficit Skin- warm & dry Laboratory Results: Last 24 Hours Test 07/30/17 20:52 07/31/17 05:38 07/31/17 06:15 07/31/17 11:08 Bedside Glucose 162 mg/dl 132 mg/dl 121 mg/dl White Blood Count 10.62 K/uL Red Blood Count 2.55 M/uL Hemoglobin 7.4 g/dL Hematocrit 22.9 % Mean Corpuscular Volume 89.8 fL Mean Corpuscular Hemoglobin 29.0 pg Mean Corpuscular Hemoglobin Concent 32.3 g/dl RDW Standard Deviation 50.3 fL RDW Coefficient of Variation 15.2 % Platelet Count 228 K/uL Mean Platelet Volume 8.8 fL Sodium Level 135 mmol/L Potassium Level 4.0 mmol/L Chloride Level 107 mmol/L Carbon Dioxide Level 19 mmol/L Anion Gap 9.0 mmol/L Blood Urea Nitrogen 35 mg/dl Creatinine 3.31 mg/dl Est Creatinine Clear Calc Drug Dose 28.3 ml/min Estimated GFR () 17.9 Estimated GFR (Non- 15.4 BUN/Creatinine Ratio 10.4 Random Glucose 126 mg/dl Calcium Level 7.3 mg/dl Magnesium Level 2.5 mg/dl Total Bilirubin 0.8 mg/dl Direct Bilirubin 0.3 mg/dl Aspartate Amino Transf (AST/SGOT) 13 U/L Alanine Aminotransferase (ALT/SGPT) 19 U/L Alkaline Phosphatase 71 U/L Total Protein 6.9 gm/dl Albumin 1.6 gm/dl Random Vancomycin Level 20.0 mcg/ml Test 07/31/17 12:39 07/31/17 14:59 07/31/17 15:16 07/31/17 15:39 Hemoglobin 7.5 g/dL Hematocrit 23.5 % Bedside Glucose 55 mg/dl 62 mg/dl 93 mg/dl Test 07/31/17 16:26 Bedside Glucose 80 mg/dl Assessment & Plan 51-year-old female with history of diabetes type 2 on insulin, chronic left foot wound, hypertension, CKD stage III, resenting with low back pain with fevers. FEVER Met criteria for SIRS Possible sources include: POSSIBLE METASTATIC VS. INFECTIOUS PROCESS IN THE CERVICAL, THORACIC, LUMBAR MRSA BACTEREMIA CT lumbar spine noted: Large destructive bony lesions are suggested in the bodies of L4 and L5. There is associated cortical breakthrough. Although nonspecific, the appearance is highly concerning for bony metastatic disease. Blood cultures positive for MRSA Left foot wound culture positive for MRSA Continue day #4 vancomycin Zosyn discontinued ID consulted Question metastatic process, CT abdomen and chest unrevealing, history of thyroid cancer Orthopedic spine consulted MRI cervical thoracic lumbar spine: Possible bone metastases (full report in the procedure section) Ortho recommends CT guided bone biopsy, transfer to Tertiary level of care Discussed case with Dr. Wilder- Hospitalist in [facility] she kindly accepted the patient Discussed plan of care with patient at length she is agreeable and comfortable with the plan of care Pain well controlled Continue analgesics MRSA INFECTION, LEFT FOOT WOUND ID consulted On antibiotics as noted above Wound care consult ACUTE RENAL FAILURE ON CKD 3 Baseline creatinine 1.6- > 2.9--> 3.4--> 3.31 Likely from prerenal etiology, infection, possible contrast-induced last week's admission Continue IV NSS Nephrology consulted monitor crea ANEMIA, NORMOCHROMIC, NORMOCYTIC from Renal Failure? no obvious signs of bleeding Hg 7.5 1 unit pRBC ordered monitor closely DIABETES TYPE 2 A1c 8.3 Hold NPH and regular Insulin sliding scale for now Glycemic control consult placed HYPERTENSION Hold losartan for acute kidney injury Continue metoprolol Monitor DVT prophylaxis Heparin Full code per patient Disposition transfer to [facility] Consultants: ORTHO SPINE DR. HOFF, ID DR. AVERY, NEPHROLOGY DR. ROBERTS Procedures: (CHEST) THORAX WITHOUT CT DOSE: 2874.78 mGy.cm HISTORY: Metastatic disease. Pain. evaluation for metastatic disease TECHNIQUE: Multiaxial CT images of the chest were performed without contrast. A dose lowering technique was utilized adhering to the principles of ALARA. COMPARISON: None. FINDINGS: Mild bibasilar dependent and platelike atelectatic change. No significant pulmonary nodularity. No significant mediastinal or hilar adenopathy with a lymph node within limitations of an unenhanced scan. IMPRESSION: Scattered basilar atelectatic change. Otherwise negative CT of the chest. CT SCAN OF THE ABDOMEN AND PELVIS WITHOUT CONTRAST CLINICAL HISTORY: Generalized pain. Possible metastatic disease. COMPARISON STUDY: No previous studies for comparison. TECHNIQUE: CT scan of the abdomen and pelvis was performed from the lung bases to the proximal femurs. Images are reviewed in the axial, sagittal, and coronal planes. IV contrast was not administered for this examination. A dose lowering technique was utilized adhering to the principles of ALARA. CT DOSE: FINDINGS: Lower chest: There are dependent atelectatic changes. Liver: The unenhanced liver is normal in size, contour, and attenuation. There is no intrahepatic biliary ductal dilatation. Gallbladder: Surgically absent Spleen: Spleen is enlarged measuring 14.8 cm. No focal masses are visualized on this noncontrast study Pancreas: Unremarkable. Adrenal glands: Unremarkable. Kidneys: No renal, ureteral, or bladder calculi are visualized. Hypodense left renal lesions cannot be further characterized but statistically represent cysts. The largest measures 21 mm. Bowel: There are no transition zones indicate bowel obstruction. There is colonic diverticulosis. There are no acute peridiverticular inflammatory changes. The appendix appears normal. Peritoneum: There is no intraperitoneal free air or abdominal ascites. Vasculature: The abdominal aorta is normal in course and caliber. Adenopathy: Retroperitoneal aortocaval lymph nodes are the upper limits of normal in size Pelvic viscera: There is a 3 cm left ovarian cyst Skeletal structures: There is is a mixed lytic and sclerotic 24 mm L4 lesion. There is an 11 mm lytic L5 lesion. As a 5 mm sclerotic lesion within the L3 vertebra. IMPRESSION: 1. No evidence of bowel obstruction. No evidence of free air 2. No renal, ureteral, or bladder calculi identified 3. Mild splenomegaly 4. 24 mm mixed lytic and sclerotic lesion within the L4 vertebra. Schmorl's node versus 11 mm lytic lesion within the L5 vertebra. 5. Normal appendix. No evidence of acute diverticulitis. THORACIC SPINE MRI HISTORY: Acute back pain. eval for metastatic disease TECHNIQUE: Multiplanar multisequence MRI of the thoracic spine was performed without the use of contrast. COMPARISON: Chest CT 07/27/2017. FINDINGS: There is a single 1.4 cm T2 and T1 hypointense lesion within the right posterior T6 vertebral body. This is consistent with a metastatic focus. No cortical breakthrough or epidural extension identified on this noncontrast study. No fracture or subluxation within the thoracic spine. Mild disc space narrowing within the mid to lower thoracic spine with a few small focal disc protrusions at these levels. However, no significant central canal or neural foraminal narrowing. Paraspinal soft tissues are unremarkable. IMPRESSION: A single 1.4 cm T6 vertebral body lesion consistent with a metastatic focus. No fractures or epidural extension identified. No significant central canal or neural foraminal narrowing. LUMBAR SPINE MRI HISTORY: eval for metastatic disease, CT suspicious TECHNIQUE: Multiplanar multisequence MRI of the lumbar spine was performed without the use of contrast. COMPARISON: Lumbar spine CT 07/27/2017. FINDINGS: For the purpose of the report the L5-S1 disc space will be located on axial image of . Confirmation of the L3, L4, and L5 vertebral body lesions. The L3 lesion measures 5 mm. The L4 lesion measures 2.4 cm. The L5 lesion measures 1.8 cm. The L5 lesion results in small focal compression fracture at the anterior superior endplate of L5. No definite epidural or paraspinal extension identified. Subcentimeter retroperitoneal lymph nodes are identified. Mild left paraspinal edema seen from the L3-L5 levels. This is of uncertain clinical significance. Small broad-based posterior disc bulges at L3-L4 and L4-L5. Small focal central disc protrusion at L5-S1. No significant central canal narrowing. The conus terminates at the L1 level. Mild disc space narrowing at L4-L5 and L5-S1. IMPRESSION: 1. Confirmation of the L3, L4, and L5 vertebral body lesions consistent with metastatic disease. No definite epidural or paraspinal extension. No central canal narrowing. 2. Prominent retroperitoneal lymph nodes. 3. Nonspecific left paraspinal edema at the lower lumbar spine. CERVICAL SPINE MRI HISTORY: Lumbar spine lesions. eval for metastatic disease TECHNIQUE: Multiplanar multisequence MRI of the cervical spine was performed without the use of contrast. COMPARISON STUDY: None. FINDINGS: Visualized posterior fossa is unremarkable. No fracture or subluxation within the cervical spine. Disc spaces are relatively preserved. Prevertebral soft tissues and the C1-C2 interval are intact. The cervical spinal cord is normal in course, caliber, and signal intensity. There is a 1.4 cm expansile lesion seen within the C2 spinous process. No evidence for epidural extension. No additional lesions seen within the cervical spine. C2-C3: No significant central canal or neural foraminal narrowing. C3-C4: No significant central canal or neural foraminal narrowing. C4-C5: No significant central canal or neural foraminal narrowing. C5-C6: Small broad-based posterior disc bulge without significant central canal or neural foraminal narrowing. C6-C7: Small left paracentral focal disc protrusion resulting in mild left neural foraminal narrowing. Some of the exiting nerve root at this level. No significant central canal narrowing. C7-T1: No significant central canal or neural foraminal narrowing. IMPRESSION: 1. A 1.4 cm expansile lesion within the C2 spinous process consistent with a metastatic focus. This does not extend to the epidural space. No additional lesions identified within the cervical spine. 2. No central canal narrowing. 3. No fracture or subluxation within the cervical spine. 4. Degenerative changes as described above. Current Inpatient Medications: Current Inpatient Medications Medications (Trade) Dose Ordered Sig/Santos Route Start Time Stop Time Status Last Admin Dose Admin Miscellaneous Information (Consult) 1 ea UD PRN N/A 07/27/17 22:15 08/26/17 22:14 Sodium Chloride 1,000 ml @ 50 mls/hr Q20H IV 07/28/17 00:00 08/27/17 00:00 07/31/17 00:52 50 MLS/HR Acetaminophen (Tylenol Tab) 650 mg Q4H PRN PO 07/27/17 22:15 08/26/17 22:14 07/31/17 03:20 650 MG Al Hydrox/Mg Hydrox/Simethicone (Maalox Max Susp) 15 ml Q4H PRN PO 07/27/17 22:15 08/26/17 22:14 Ondansetron HCl (Zofran Inj) 4 mg Q6H PRN IV 07/27/17 22:15 08/26/17 22:14 Polyethylene (Miralax Powder Packet) 17 gm DAILY PRN PO 07/27/17 22:15 08/26/17 22:14 Glucose (Glucose Chew Tab) 4-8 Tablets 4 Tabl... UD PRN PO 07/27/17 22:15 08/26/17 22:14 Hydromorphone HCl (Dilaudid Inj) 1 mg Q6 PRN IV 07/27/17 22:30 08/10/17 22:29 07/28/17 19:48 1 MG Hydromorphone HCl (Dilaudid Inj) 2 mg Q8 PRN IV 07/27/17 22:30 08/10/17 22:29 Oxycodone/ Acetaminophen (Percocet 5-325mg Tab) 1 tab Q4H PRN PO 07/27/17 22:30 08/10/17 22:29 07/29/17 08:32 1 TAB Oxycodone/ Acetaminophen (Percocet 5-325mg Tab) 2 tab Q4H PRN PO 07/27/17 22:30 08/10/17 22:29 07/31/17 11:44 2 TAB Glucose (Glucose 40% Gel) 15-30 GRAMS 15 GRAMS... UD PRN PO 07/27/17 22:45 08/26/17 22:44 Dextrose (Dextrose 50% 50ML Syringe) 25-50ML OF 50% DW IV FOR... UD PRN IV 07/27/17 22:45 08/26/17 22:44 Glucagon (Glucagon Inj) 1 mg UD PRN SQ 07/27/17 22:45 08/26/17 22:44 Miscellaneous Information (Consult Glycemic Management Pharmacy) 1 ea UD PRN N/A 07/27/17 22:52 08/26/17 22:51 Insulin Aspart (novoLOG ASPART) SLIDING SCALE ACHS SC 07/28/17 06:45 08/27/17 06:59 07/31/17 11:48 21 UNITS Levothyroxine Sodium (Synthroid Tab) 125 mcg DAILYBB PO 07/28/17 11:00 08/27/17 10:59 07/31/17 06:10 125 MCG Metoprolol Tartrate (Lopressor Tab) 50 mg BID PO 07/28/17 09:00 08/27/17 08:59 07/31/17 08:32 50 MG Pantoprazole Sodium (Protonix Tab) 40 mg DAILY PO 07/28/17 09:00 08/27/17 08:59 07/31/17 08:32 40 MG Senna/Docusate Sodium (Senokot S Tab) 1 tab QAM PO 07/30/17 09:00 08/29/17 08:59 07/31/17 08:32 1 TAB Magnesium Hydroxide (Milk Of Magnesia Susp) 30 ml Q6H PRN PO 07/30/17 14:00 08/29/17 13:59 Insulin Glargine (Lantus Solostar Pen) SEE PROTOCOL TEXT BID SC 07/31/17 09:00 08/30/17 08:59 07/31/17 08:56 25 UNITS
== END 2017-07-31 19:00 | disposition short-term general hospital (02) | DRG 542 ==
LOC: C.EDB 18:36 → C.2T 22:15 → ENRESERV 22:28 → C.MSICU 07-28 03:20 → C.2T 07-28 19:37
PROVIDERS: ADMIT Hospitalist; ATTEND Internal Medicine
DX: C79.51 Secondary malignant neoplasm of bone (principal); N17.0 Acute kidney failure with tubular necrosis; R78.81 Bacteremia; M85.88 Other specified disorders of bone density and structure, other site; T50.8X5A Adverse effect of diagnostic agents, initial encounter; E11.622 Type 2 diabetes mellitus with other skin ulcer; E11.21 Type 2 diabetes mellitus with diabetic nephropathy; E11.69 Type 2 diabetes mellitus with other specified complication; K21.9 Gastro-esophageal reflux disease without esophagitis; Z83.3 Family history of diabetes mellitus; Z87.891 Personal history of nicotine dependence; Z79.4 Long term (current) use of insulin; N18.3 Chronic kidney disease, stage 3 (moderate); E78.5 Hyperlipidemia, unspecified; B95.8 Unspecified staphylococcus as the cause of diseases classified elsewhere; Z85.850 Personal history of malignant neoplasm of thyroid; C80.1 Malignant (primary) neoplasm, unspecified; D63.1 Anemia in chronic kidney disease; Y84.2 Radiological procedure and radiotherapy as the cause of abnormal reaction of the patient, or of later complication, without mention of misadventure at the time of the procedure; Y92.019 Unspecified place in single-family (private) house as the place of occurrence of the external cause

== ENCOUNTER 2017-08-16 10:54 | Emergency (ER) | payer OTHER ==
[~2017-08-16] VITALS: Ht 172.7 cm; Wt 120.9 kg
[~2017-08-16 10:54] MED LIST changes: +HPRIS5M SQ; +INSDGIPEN SC; -INSP SQ; +LEVO125T5 PO; +NVLGIPEN SC; -NVLNI SQ; -NVLRB SQ; -OXYC1TAB3 PO; +SENN8.6T7 PO
[2017-08-16] MEDS ORDERED: SODIUM CHLORIDE 0.9% 1000ML 1,000 ML IV ONE (11:19)
[2017-08-16 11:25] VITALS: O2SAT 98; Ht 172.7 cm; Wt 120.9 kg
[2017-08-16] MEDS ORDERED: GLGKIT (12:03)
[2017-08-16] MEDS ORDERED: INSHRIE SQ (12:03)
[2017-08-16] MEDS ORDERED: SODI0.9I55 IV (12:03)
[2017-08-16] MEDS ORDERED: AMLO-110 PO (12:03)
[2017-08-16] MEDS ORDERED: INSHNI SQ ×2 (12:03)
[2017-08-16] MEDS ORDERED: ACET-1311 PO (12:03)
[2017-08-16] MEDS ORDERED: LABE100T23 PO (12:03)
[2017-08-16] MEDS ORDERED: VANC1INJ IV (12:03)
[2017-08-16 12:11] LABS: BASO % 0.4 %; BASO ABS # 0.02 K/uL (0-0.2); EOS % 5.3 %; EOS ABS # 0.26 K/uL (0-0.5); HEMATOCRIT 30.9 % (37-47); HEMOGLOBIN 10.2 g/dL (12.0-16.0); IG# 0.01 K/uL (0.00-0.02); LYMPH % 23.7 %; LYMPH ABS # 1.17 K/uL (1.2-3.4); MEAN CELL VOLUME 88.8 fL (80-100); MEAN CORPUSCULAR HEMOGLOBIN 29.3 pg (25-34); MONO % 7.9 %; MONO ABS # 0.39 K/uL (0.11-0.59); NEUT % 62.5 %; NEUT ABS # 3.08 K/uL (1.4-6.5); PLATELET COUNT 207 K/uL (130-400); RED CELL DISTRIBUTION WIDTH SD 48.9 fL (36.4-46.3); WHITE BLOOD COUNT 4.93 K/uL (4.8-10.8)
[2017-08-16 12:24] LABS: PTT PATIENT 24.7 SECONDS (21.0-31.0)
[2017-08-16 12:27] LABS: ALBUMIN 2.9 gm/dl (3.4-5.0); ALT/SGPT 33 U/L (12-78); AST/SGOT 25 U/L (15-37); BLOOD UREA NITROGEN 33 mg/dl (7-18); CALCIUM 9.3 mg/dl (8.5-10.1); CARBON DIOXIDE 23 mmol/L (21-32); CREATININE 1.91 mg/dl (0.60-1.20); GLUCOSE 116 mg/dl (70-99); LIPASE 339 U/L (73-393); POTASSIUM 3.9 mmol/L (3.5-5.1); SODIUM 137 mmol/L (136-145)
--- NOTE | 2017-08-16 12:29 | DIAGNOSTIC IMAGING REPORT ---
CHEST ONE VIEW PORTABLE CLINICAL HISTORY: Evaluate Fever/Sepsis dyspnea COMPARISON STUDY: 07/27/2017 FINDINGS: Central catheter placed in the sputum vena cava. No evidence pneumothorax. Minimal left basilar atelectasis. Lungs otherwise appear clear. The diaphragms are smooth. IMPRESSION: Minimal atelectasis left base. Otherwise negative study. The above report was generated using voice recognition software. It may contain grammatical, syntax or spelling errors. Electronically signed by: Eliceo Isidro M.D. 08/16/2017 12:28 PM Dictated Date/Time: 08/16/2017 12:27 PM
[2017-08-16 12:32] LABS: ALKALINE PHOSPHATASE 75 U/L (45-117); TOTAL PROTEIN 8.8 gm/dl (6.4-8.2)
--- NOTE | 2017-08-16 12:51 | EMERGENCY ROOM VISIT NOTE ---
History Report prepared by Clarke: Del Mckinney Under the Supervision of: Dr. Alec Gaviria M.D. First contact with patient: 11:06 Chief Complaint: INFECTION Stated Complaint: INFECTION, UPPER RIGHT CHEST AREA Nursing Triage Summary: pt has central line in right side of chest for antibiotics and nurse reports thinks line is infected pt getting vanco for MRSA and staph in blood wound on left foot History of Present Illness The patient is a 51 year old white female with a past medical history of HTN, diabetes, MRSA, GERD, s/p cholecystectomy, s/p tubal ligation, s/p thyroidectomy (due to thyroid cancer) who presents to the ED with a cc of a worsening right chest wound infection. Patient recently had a right subclavicular central line placed to receive antibiotics. She received the IV antibiotics (Vancomycin) for MRSA and Staph infections in the blood. Patient had central line site by wound care today and felt that the site appeared infected. She states that the area was draining a "pus-like" discharge. Negative new cough, nausea, vomiting, abdominal pain, fevers, or chills. Eating and drinking normally. Urinating and defecating normally. Patient notes that she has a chronic wound infection of the left foot. Source of History: patient Onset: Today Position: chest (right) Quality: other (wound infection) Timing: worsening Associated Symptoms: No fevers, No chills, No cough (new), No nausea, No vomiting, No diarrhea, No urinary symptoms Review of Systems See HPI for pertinent positives and negatives. A total of ten systems were reviewed and were otherwise negative. Past Medical & Surgical Medical Problems: (1) Benign hypertension (2) Cholecystectomy (3) Diabetes mellitus type 2 (4) Exchange of intraocular lens (5) Gastroesophageal reflux disease (6) History of - section (7) History of - tubal ligation (8) Thyroid cancer Surgical Problems: (1) H/O thyroidectomy Family History CHF GRANDFATHER Diabetes mellitus FATHER MOTHER Hypertension FATHER GRANDFATHER [place] GRANDFATHER Social History Smoking Status: Never Smoker Marital Status: Housing Status: lives with family Occupation Status: disabled Current/Historical Medications Scheduled Amlodipine (Norvasc), 5 MG PO DAILY Heparin Sod (Porcine) (Heparin Sodium), 5,000 UNIT SQ Q8 Insulin Human NPH (Humulin N), 34 UNITS SQ QAM Insulin Human NPH (Humulin N), 46 UNITS SQ QPM Insulin Human Regular (Humulin R), 28 UNITS SQ QAM Labetalol Hcl (Labetalol Hcl), 100 MG PO TID Levothyroxine Sodium (Levothyroxine Sodium), 125 MCG PO DAILY Sodium Chloride Flush (Normal Saline Flush), 1 APPLN IV DAILY Vancomycin HCl in Sodium Chlor (Vancomycin Hydrochloride/ 1.25-0.9 gm/250Ml-%), 1,250 MG IV DAILY Scheduled PRN Acetaminophen (Tylenol), 650 MG PO Q4 PRN for Pain or Fever Miscellaneous Medications Glucagon (Glucagon Emergency Kit) Allergies Coded Allergies: No Known Allergies (Verified , 08/16/17) Physical Exam Vital Signs Date Time Temp Pulse Resp B/P (MAP) Pulse Ox O2 Delivery O2 Flow Rate FiO2 08/16/17 14:31 182/103 08/16/17 13:36 90 15 98 Room Air 08/16/17 13:31 188/110 08/16/17 13:29 88 19 97 Room Air 08/16/17 13:01 171/102 08/16/17 12:59 90 22 98 Room Air 08/16/17 12:54 92 21 99 Room Air 08/16/17 12:31 166/102 08/16/17 12:24 90 21 99 Room Air 08/16/17 12:08 88 16 179/105 95 Room Air 08/16/17 12:08 179/105 08/16/17 11:54 86 12 08/16/17 11:39 88 08/16/17 11:25 98 Room Air 08/16/17 11:01 36.9 95 20 182/103 98 Room Air Physical Exam GENERAL: Obese. Awake, alert, well-appearing, NAD HENT: Normocephalic, atraumatic. EYES: Normal conjunctiva. Sclera non-icteric. NECK: Supple. No nuchal rigidity. FROM. Horizontal incisional scar over the lower neck. RESPIRATORY: CTAB, no rhonchi, wheezing, crackles CARDIAC: RRR, no MRG ABDOMEN: Soft, NTND, BS+ MSK: Single lumen central line in the right chest wall. Scant redness at the insertion site. Yellow discharge surrounding the line. No TTP. No fluctuance. LLE in a walking boot and bandaged. NEURO: GCS 15, CN 2-12 intact, moves all 4s on command SKIN: No rash or jaundice noted. Medical Decision & Procedures ER Provider Diagnostic Interpretation: Radiology results as stated below per my review and radiologist interpretation: CHEST ONE VIEW PORTABLE FINDINGS: Central catheter placed in the sputum vena cava. No evidence pneumothorax. Minimal left basilar atelectasis. Lungs otherwise appear clear. The diaphragms are smooth. IMPRESSION: Minimal atelectasis left base. Otherwise negative study. The above report was generated using voice recognition software. It may contain grammatical, syntax or spelling errors. Electronically signed by: Eliceo Isidro M.D. 08/16/2017 12:28 PM Laboratory Results 08/16/17 10:50 Red Blood Count 3.48, Mean Corpuscular Volume 88.8, Mean Corpuscular Hemoglobin 29.3, Mean Corpuscular Hemoglobin Concent 33.0, Mean Platelet Volume 9.0, Neutrophils (%) (Auto) 62.5, Lymphocytes (%) (Auto) 23.7, Monocytes (%) (Auto) 7.9, Eosinophils (%) (Auto) 5.3, Basophils (%) (Auto) 0.4, Neutrophils # (Auto) 3.08, Lymphocytes # (Auto) 1.17, Monocytes # (Auto) 0.39, Eosinophils # (Auto) 0.26, Basophils # (Auto) 0.02 08/16/17 10:50 Test 08/16/17 10:50 08/16/17 11:55 08/16/17 12:15 08/16/17 13:47 White Blood Count 4.93 K/uL (4.8-10.8) Red Blood Count 3.48 M/uL (4.2-5.4) Hemoglobin 10.2 g/dL (12.0-16.0) Hematocrit 30.9 % (37-47) Mean Corpuscular Volume 88.8 fL (80-100) Mean Corpuscular Hemoglobin 29.3 pg (25-34) Mean Corpuscular Hemoglobin Concent 33.0 g/dl (32-36) Platelet Count 207 K/uL (130-400) Mean Platelet Volume 9.0 fL (7.4-10.4) Neutrophils (%) (Auto) 62.5 % Lymphocytes (%) (Auto) 23.7 % Monocytes (%) (Auto) 7.9 % Eosinophils (%) (Auto) 5.3 % Basophils (%) (Auto) 0.4 % Neutrophils # (Auto) 3.08 K/uL (1.4-6.5) Lymphocytes # (Auto) 1.17 K/uL (1.2-3.4) Monocytes # (Auto) 0.39 K/uL (0.11-0.59) Eosinophils # (Auto) 0.26 K/uL (0-0.5) Basophils # (Auto) 0.02 K/uL (0-0.2) RDW Standard Deviation 48.9 fL (36.4-46.3) RDW Coefficient of Variation 15.0 % (11.5-14.5) Immature Granulocyte % (Auto) 0.2 % Immature Granulocyte # (Auto) 0.01 K/uL (0.00-0.02) Prothrombin Time 10.0 SECONDS (9.0-12.0) Prothromb Time International Ratio 1.0 (0.9-1.1) Activated Partial Thromboplast Time 24.7 SECONDS (21.0-31.0) Partial Thromboplastin Ratio 1.0 Anion Gap 8.0 mmol/L (3-11) Est Creatinine Clear Calc Drug Dose 48.2 ml/min Estimated GFR () 34.8 Estimated GFR (Non- 30.0 BUN/Creatinine Ratio 17.1 (10-20) Calcium Level 9.3 mg/dl (8.5-10.1) Total Bilirubin 0.8 mg/dl (0.2-1) Direct Bilirubin 0.2 mg/dl (0-0.2) Aspartate Amino Transf (AST/SGOT) 25 U/L (15-37) Alanine Aminotransferase (ALT/SGPT) 33 U/L (12-78) Alkaline Phosphatase 75 U/L (45-117) Troponin I < 0.015 ng/ml (0-0.045) Total Protein 8.8 gm/dl (6.4-8.2) Albumin 2.9 gm/dl (3.4-5.0) Lipase 339 U/L (73-393) Bedside Lactic Acid Venous 1.06 mmol/L (0.90-1.70) Influenza Type A Antigen Neg for Influ A (NEG) Influenza Type B Antigen Neg for Influ B (NEG) Venous Blood pH 7.36 (7.36-7.41) Venous Blood Partial Pressure CO2 44 mmHg (38.0-50.0) Venous Blood Partial Pressure O2 37 mmHg Venous Blood HCO3 25 mmol/L Venous Blood Oxygen Saturation 67.1 % Venous Blood Base Excess -1.0 mEq/L Random Vancomycin Level 18.2 mcg/ml Laboratory results reviewed by me Medications Administered Medications (Trade) Dose Ordered Sig/Santos Route Start Time Stop Time Status Last Admin Dose Admin Sodium Chloride 1,000 ml @ 2,000 mls/hr Q30M ONCE IV 08/16/17 11:19 08/16/17 11:48 DC 08/16/17 12:05 2,000 MLS/HR ECG Per My Interpretation Indication: other (infection) Rate (beats per minute): 88 Rhythm: normal sinus Findings: T-wave inversion (AVL), other (Normal intervals. Normal axis. No other STS changes or TWI. ) ED Course 1113: The patient was evaluated in room C1B. A complete history and physical exam was performed. 1240: Upon reexamination, the patient was resting comfortably. I discussed the test results and treatment plan with her. The patient will be evaluated for further management. Medical Decision The patient is a 51 year old white female with a past medical history of HTN, diabetes, MRSA, GERD, s/p cholecystectomy, s/p tubal ligation, s/p thyroidectomy (due to thyroid cancer) who presents to the ED with a cc of a worsening right chest wound infection. Differential diagnosis: Etiologies such as sepsis, line infection, granulation tissue, cellulitis, abscess, MRSA infection, DVT, necrotizing fasciitis, dermatitis, drug eruption, as well as others were entertained. Prior records were reviewed. Patient was recently seen admitted for an MRSA infection and transferred given concern for possible lytic lesions versus infection in the spine. Patient was recently started on IV antibiotics as an outpatient. Patient was seen and evaluated at the bedside. The patient was referred here given to concern for possible line infection as the patient did have some drainage coming from the right chest wall insertion site. Patient otherwise symptomatically feels very well. She does complain of any fevers or chills. The patient did have blood work completed, blood cultures, urine, urine cultures , VBG, lactate. Wound culture was sent. Patient's VBG and lactate fairly unremarkable. White blood cell count within normal limits. Patient's other blood work fairly unremarkable. The patient did have mild elevation in creatinine from 1.6-1.9 however this is improved compared to her discharge creatinine which was greater than 3. This was prior to her transfer to [facility]. Given the concern for possible line infection I did discuss the patient with the on-call hospitalist to further agreed to evaluate the patient. Medication Reconcilliation Current Medication List: was personally reviewed by me Blood Pressure Screening Patient's blood pressure: Elevated blood pressure Blood pressure disposition: Referred to PCP Consults Time Called: 1238 Consulting Physician: Dr. Salas - [facility] Hospitalist Returned Call: [phone] Discussed the patient's case. The patient will be evaluated for further treatment and disposition. Impression Primary Impression: Central line infection Scribe Attestation The scribe's documentation has been prepared under my direction and personally reviewed by me in its entirety. I confirm that the note above accurately reflects all work, treatment, procedures, and medical decision making performed by me. Departure Information Dispostion Being Evaluated By Hospitalist Referrals Yosvany Sotomayor M.D.([facility]) (PCP) Patient Instructions My [facility] Problem Qualifiers Primary Impression: Central line infection Encounter type: initial encounter Qualified Codes: T80.219A - Unspecified infection due to central venous catheter, initial encounter
[2017-08-16 13:12] LABS: INFLUENZA B ANTIGEN Neg for Influ B (NEG)
[2017-08-16] MEDS ORDERED: VANCOMYCIN IV 1,250 MG in SODIUM CHLORIDE 0.9% 500ML 500 ML IV STA (14:49)
[2017-08-16] MEDS ORDERED: VANCOMYCIN IV 1,250 MG in SODIUM CHLORIDE 0.9% 250ML 250 ML IV STA (14:49)
[2017-08-16] MEDS ORDERED: VANCOMYCIN CONSULT ACTIVE PRN (15:00)
--- NOTE | 2017-08-16 15:39 | Progress Note ---
Progress Note Date of Service Aug 16, 2017. Progress Note 51-year-old female being treated for MRSA bacteremia with intravenous vancomycin via tunneled central venous catheter placed at [facility] on 08/06/17. Home health nursing today noted purulent discharge at the catheter site. No fever, chills, sweats. Afebrile in the ED. Exam revealed a tunneled catheter exiting in the right infraclavicular area with purulent drainage and mild surrounding erythema. No leukocytosis. Gram stain of the drainage at the catheter site demonstrated few WBCs, no organisms. Patient is clinically stable; no need for admission at this time. Case was discussed with ID and interventional radiology at [facility]. Arrangements made for catheter to be removed tomorrow as an outpatient in the Interventional Radiology department. Patient instructed to seek medical attention if she develops fever or other concerning symptoms. .
--- NOTE | 2017-08-16 15:41 | EMERGENCY ROOM VISIT NOTE ---
ED Visit Note First contact with patient: 15:36 I assumed care at the change of shift, Dr. Gaviria had been the physician just prior to me. [facility]. [facility]rangements are being made for her to have the line removed and a new line then placed. This is all to happen tomorrow. Appointments have been made. Patient was felt stable for discharge. She was encouraged to return if things were to worsen or if she had fever.
[2017-08-16 17:52] VITALS: BP 168/95; PULSE 87; TEMP 36.9; O2SAT 98
--- NOTE | 2017-08-18 15:30 | Pharmacy Progress Note ---
ED Pharmacist Culture FollowUp Date of Service: Aug 18, 2017. Patient's urine cx from 08/16/17 is growing >100,000CFU/mL klebsiella pneumoniae. The patient did not have urinary symptoms, fever or chills while in ER. A UA was not collected. Reviewed case w/ Dr Gaviria. Plan was to contact the patient to determine if she was having s/s of UTI. I spoke to the patient via phone, she denies dysuria, frequency, abd pain, fever and chills. No abx therapy provided. Cultured organism may represent asymptomatic bacteruria vs contaminated specimen.
== END 2017-08-16 17:52 | disposition home or self-care (01) ==
LOC: C.EDB 10:56 → C.EDC 17:52
DX: T80.219A Unspecified infection due to central venous catheter, initial encounter (principal); I10 Essential (primary) hypertension; E66.9 Obesity, unspecified; E11.9 Type 2 diabetes mellitus without complications; Z79.4 Long term (current) use of insulin; K21.9 Gastro-esophageal reflux disease without esophagitis; E89.0 Postprocedural hypothyroidism; Z79.01 Long term (current) use of anticoagulants; Z95.828 Presence of other vascular implants and grafts; Z96.1 Presence of intraocular lens; Z90.49 Acquired absence of other specified parts of digestive tract; Z98.51 Tubal ligation status; Z85.850 Personal history of malignant neoplasm of thyroid; Z83.3 Family history of diabetes mellitus; Z82.49 Family history of ischemic heart disease and other diseases of the circulatory system

== ENCOUNTER 2021-04-04 15:07 | Inpatient (IN) ==
[2021-04-04] MEDS ORDERED: NALOXONE HCL 0.4 MG/1 ML VIAL/CARP IV STA (20:51)
[2021-04-04] MEDS ORDERED: cefTRIAXone SODIUM 2,000 MG/70 ML BAG IV STA (21:00)
[2021-04-04] MEDS ORDERED: SODIUM CHLORIDE 0.9% 500 ML IV ONE (21:02)
--- NOTE | 2021-04-04 21:51 | CT Scan Report ---
CT head/brain wo con CLINICAL HISTORY: AMS, slurred speech, narcotics Technique: Contiguous axial CT images of the head were acquired from the base of the skull to the luis carlos ac without intravenous contrast administration. Images were viewed in brain, subdural and bone windo ws. Automated dose lowering techniques and/or adjustment according to patient size were utilized for this exam. Comparison: None available at the time of this dictation. Findings: The ventricles, basal cisterns, and cerebral sulci are normal. There is no acute intracranial hemorrh age or evidence of acute territorial infarction. Neither mass effect, shift of the midline structures , nor abnormal extra-axial fluid collections are shown. Soft tissue thickening is seen in the bilateral maxillary sinuses. The orbits appear normal. There a re no acute fractures of the calvaria or scalp swelling. Impression: No acute intracranial hemorrhage, no evidence of acute territorial infarction or other acute intracra nial disease process. ACT 112: Negative or not required by law. Electronically signed by: Rm Flores M.D. 04/04/2021 9:49 PM
[2021-04-04] MEDS ORDERED: PIPERACILLIN/TAZOBACTAM 4.5 GM/120 ML BAG IV ONE (22:03)
[2021-04-04] MEDS ORDERED: PIPERACILL/TAZOBAC CONSULT ACTIVE PRN (22:03)
[2021-04-04] MEDS ORDERED: DAPTOmycin 375 MG in SYRINGE 0 ML IV ONE (22:03)
[2021-04-04] MEDS ORDERED: SODIUM CHLORIDE 0.9% 1000ML 500 ML IV ONE (22:04)
--- NOTE | 2021-04-04 22:09 | CT Scan Report ---
CT pelvis wo con CLINICAL HISTORY: R gluteal cellulitis, abscess TECHNIQUE: Helical axial images of the abdomen and pelvis were obtained and displayed at 5 and 1 mm i ntervals. Automated dose lowering techniques and/or adjustment according to patient size were utilize d for this exam. This exam was performed with intravenous contrast. COMPARISON: Comparison is made to CT abdomen pelvis 07/27/2017 FINDINGS: Bowel: Diverticulosis is seen without evidence of diverticulitis. The appendix is normal. Lymph nodes Mesenteric: Unremarkable. Pelvic: Unremarkable. Bladder: Unremarkable. Reproductive organs: Postsurgical changes are seen, likely representing tubal ligation. Peritoneum: Normal Vessels: Atherosclerotic calcifications are seen. Soft tissues: There is fat stranding and subcutaneous emphysema in the right gluteus. The region of f at stranding is also seen in the supraumbilical soft tissues. No drainable fluid collection is seen. Bones: Redemonstration of mixed lytic and sclerotic L4 lesion and lytic L5 lesion. IMPRESSION: Right gluteal cellulitis with gas forming organisms. No evidence of drainable fluid collection. No in volvement of the adjacent bowel is seen. ACT 112: Negative or not required by law. Electronically signed by: Rm Flores M.D. 04/04/2021 10:08 PM
[2021-04-04] MEDS ORDERED: SODIUM CHLORIDE 0.9% 1000ML 1,000 ML IV SCH (22:15)
[2021-04-04 23:05] LABS: Basophils # (auto) 0.01 K/uL (0-0.2); Basophils % (auto) 0.1 %; Eosinophils # (auto) 0.05 K/uL (0-0.5); Eosinophils % (auto) 0.3 %; Hematocrit (blood only) 23.7 % (37-47); Hemoglobin 7.6 g/dL (12.0-16.0); Immature Granulocytes # (auto) 0.11 K/uL (0.00-0.02); Immature Granulocytes % (auto) 0.7 %; Lymphocytes # (auto) 0.94 K/uL (1.2-3.4); Lymphocytes % (auto) 5.8 %; Mean Corpuscular Hemoglobin 30.3 pg (25-34); Mean Corpuscular Hgb Conc 32.1 g/dL (32-36); Mean Corpuscular Volume 94.4 fL (80-100); Mean Platelet Volume 10.2 fL (7.4-10.4); Monocytes # (auto) 1.21 K/uL (0.11-0.59); Monocytes % (auto) 7.5 %; Neutrophils % (auto) 85.6 %; Platelet Count 204 K/uL (130-400); RDW Standard Deviation 45.9 fL (36.4-46.3); Red Blood Count 2.51 M/uL (4.2-5.4); White Blood Count 16.22 K/uL (4.8-10.8)
--- NOTE | 2021-04-04 23:08 | History & Physical Report ---
Date of Service April 04, 2021 Assessment & Plan (1) Abscess, gluteal, right: Plan: 55-year-old woman with gluteal abscess with gas-forming organism. There is a significant amount of subcutaneous emphysema. I discussed with her the need for emergent incision and drainage and possible debridement of the abscess. All her questions were answered, and she is agreeable to proceed. Covid test is negative. We will place her on IV fluids and IV antibiotics. Labs are pending. We will take her to the operating room at the earliest convenience. History of Present Illness Chief Complaint: Gluteal abscess with subcutaneous emphysema Primary Care Provider: Edy Eddy MD 55-year-old woman presents to the ER with worsening right back and gluteal pain. She has an extensive medical history including diabetes, chronic kidney disease stage IV, sciatica on the right side. She thought that the pain was com ing from the sciatica. She states that she had a small pimple on her right gluteus on Wednesday. She states that she fell on Wednesday, and subsequently developed a large red firm area surrounding the pimple/pustule. She denies any drainage from the area. She does have subjective fevers and chills. She denies chest pain or shortness of breath. CT scan demonstrates a large amount of subcutaneous emphysema in the right gluteal subcutaneous tissues. Allergies Allergy/AdvReac Type Severity Reaction Status Date / Time Iodinated Contrast Media AdvReac Severe Patient Verified 04/04/21 21:17 has kidney failure omeprazole AdvReac Severe Increased Verified 04/04/21 21:17 her acid reflux Home Medications Medication Instructions Recorded Confirmed Type cholecalciferol (vitamin D3) 125 125 mcg PO QAM 01/11/20 04/04/21 History mcg (5,000 unit) capsule furosemide 40 mg tablet (Lasix) 60 mg PO BID tab 01/11/20 04/04/21 History gabapentin 300 mg capsule 300 mg PO TID 01/11/20 04/04/21 History losartan 25 mg tablet 25 mg PO QAM 01/11/20 04/04/21 History amlodipine 10 mg tablet 10 mg PO QAM 03/15/21 04/04/21 History doxycycline hyclate 100 mg capsule 100 mg PO QAM 03/15/21 04/04/21 History glucagon 1 mg solution for 0 mg IM UD 03/15/21 04/04/21 History injection (Glucagon Emergency Kit) hydromorphone 4 mg tablet 4 mg PO Q6H PRN 03/15/21 04/04/21 History insulin NPH isoph U-100 human 100 35 unit SUBCUT BID 03/15/21 04/04/21 History unit/mL (3 mL) subcutaneous pen (Humulin N NPH U-100 Insulin KwikPen) insulin aspart U-100 100 unit/mL 1 sliding scale dose SUBCUT 03/15/21 04/04/21 History subcutaneous solution (Novolog USEASDIRECTD U-100 Insulin aspart) labetalol 100 mg tablet 100 mg PO BID 03/15/21 04/04/21 History levothyroxine 125 mcg tablet 125 mcg PO DAILYBB 03/15/21 04/04/21 History methadone 5 mg tablet 5 mg PO BID 03/15/21 04/04/21 History Past Med/Surg History Medical History Acid reflux Amputation of right great toe Anemia Chronic kidney disease Diabetes Diabetic retinopathy H/O vocal cord paralysis Right side Hypertension Pneumonia (10/05/13) Retinal hemorrhage, right eye Sepsis Shortness of breath (10/05/13) Thyroid cancer Thyroid nodule Surgical History H/O thyroidectomy Partial thyroidectomy History of cholecystectomy History of surgery 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 Brother No problems noted. Sister Dialysis patient Kidney disease Daughter No problems noted. Daughter Diabetes Social History Smoking Status: Never smoker Second Hand Exposure: No; Hx Alcohol Use: No Hx Substance Use: No Preferred Language: Qatari Communication Ability: Effective Visual Impairment: No Limitations Hearing Ability: Normal Marketing Finance Manager Required: No Beliefs That Will Affect Care: None marital status: Current Living Situation: Spouse current occupational status: disabled Feels Safe at Home: Yes caffeine: No during the past year weight has: remained stable Review of Systems Review of Systems: All systems reviewed & are unremarkable except as noted in HPI & below Physical Exam Constitutional: WD/WN, vitals as above Eyes: PERRL, conjunctivae normal, anicteric sclerae Neck: trachea midline, no thyromegaly Respiratory: normal respiratory effort; no respiratory distress and no labored breathing Cardiovascular: Rate/Rhythm: regular rhythm and + tachycardic Gastrointestinal (Abdomen): Inspection/Auscultation: abdomen not distended Percussion/Palpation: abdomen soft; abdomen nontender Right gluteal region extending to the right perineum with erythema and induration; mild tenderness to palpation Musculoskeletal: Extremities: no cyanosis and no clubbing Skin: no rashes, warm and dry Psychiatric: A+Ox3, euthymic affect Results & Data Results & Data ([facility]) Vital Signs (Past 12 Hours) Vital Signs Temp Pulse Pulse Resp BP BP Pulse Ox 04/04/21 22:59 97 H 30 H 109/86 93 04/04/21 22:32 96 H 28 H 108/51 L 94 04/04/21 20:41 93 H 20 93/51 L 04/04/21 15:17 36.9 C 114 H 17 92/47 L 96 Laboratory Results 04/04/21 04/04/21 04/04/21 Range/Units 22:54 22:54 22:54 WBC 16.22 H (4.8-10.8) K/uL RBC 2.51 L (4.2-5.4) M/uL Hgb 7.6 L (12.0-16.0) g/dL Hct 23.7 L (37-47) % MCV 94.4 (80-100) fL MCH 30.3 (25-34) pg MCHC 32.1 (32-36) g/dL RDW Std Deviation 45.9 (36.4-46.3) fL RDW Coeff of Padmini 13.0 (11.5-14.5) % Plt Count 204 (130-400) K/uL MPV 10.2 (7.4-10.4) fL Immature Gran % (Auto) 0.7 % Neut % (Auto) 85.6 % Lymph % (Auto) 5.8 % [place] % (Auto) 7.5 % Eos % (Auto) 0.3 % Baso % (Auto) 0.1 % Neut # (Auto) 13.90 H (1.4-6.5) K/uL Lymph # (Auto) 0.94 L (1.2-3.4) K/uL [place] # (Auto) 1.21 H (0.11-0.59) K/uL Eos # (Auto) 0.05 (0-0.5) K/uL Baso # (Auto) 0.01 (0-0.2) K/uL Immature Gran # (Auto) 0.11 H (0.00-0.02) K/uL Sodium Pending Potassium Pending Chloride Pending Carbon Dioxide Pending Anion Gap Pending BUN Pending Creatinine Pending Est Cr Clr Drug Dosing Pending Est GFR ( Amer) Pending Est GFR (Non-Af Amer) Pending BUN/Creatinine Ratio Pending Glucose Pending Lactate Pending Calcium Pending Total Bilirubin Pending AST Pending ALT Pending Alkaline Phosphatase Pending Total Protein Pending Albumin Pending Globulin Pending Albumin/Globulin Ratio Pending COVID-19 Eval Order SARS-CoV-2 (PCR) (Negative) 04/04/21 04/04/21 Range/Units 21:28 21:28 WBC (4.8-10.8) K/uL RBC (4.2-5.4) M/uL Hgb (12.0-16.0) g/dL Hct (37-47) % MCV (80-100) fL MCH (25-34) pg MCHC (32-36) g/dL RDW Std Deviation (36.4-46.3) fL RDW Coeff of Padmini (11.5-14.5) % Plt Count (130-400) K/uL MPV (7.4-10.4) fL Immature Gran % (Auto) % Neut % (Auto) % Lymph % (Auto) % [place] % (Auto) % Eos % (Auto) % Baso % (Auto) % Neut # (Auto) (1.4-6.5) K/uL Lymph # (Auto) (1.2-3.4) K/uL [place] # (Auto) (0.11-0.59) K/uL Eos # (Auto) (0-0.5) K/uL Baso # (Auto) (0-0.2) K/uL Immature Gran # (Auto) (0.00-0.02) K/uL Sodium Potassium Chloride Carbon Dioxide Anion Gap BUN Creatinine Est Cr Clr Drug Dosing Est GFR ( Amer) Est GFR (Non-Af Amer) BUN/Creatinine Ratio Glucose Lactate Calcium Total Bilirubin AST ALT Alkaline Phosphatase Total Protein Albumin Globulin Albumin/Globulin Ratio COVID-19 Eval Order Covid19 at [facility] SARS-CoV-2 (PCR) NEGATIVE (Negative) Diagnostic Findings CLINICAL HISTORY: R gluteal cellulitis, abscess TECHNIQUE: Helical axial images of the abdomen and pelvis were obtained and displayed at 5 and 1 mm intervals. Automated dose lowering techniques and/or adjustment according to patient size were utilized for this exam. This exam was performed with intravenous contrast. COMPARISON: Comparison is made to CT abdomen pelvis 07/27/2017 FINDINGS: Bowel: Diverticulosis is seen without evidence of diverticulitis. The appendix is normal. Lymph nodes Mesenteric: Unremarkable. Pelvic: Unremarkable. Bladder: Unremarkable. Reproductive organs: Postsurgical changes are seen, likely representing tubal ligation. Peritoneum: Normal Vessels: Atherosclerotic calcifications are seen. Soft tissues: There is fat stranding and subcutaneous emphysema in the right gluteus. The region of fat stranding is also seen in the supraumbilical soft tissues. No drainable fluid collection is seen. Bones: Redemonstration of mixed lytic and sclerotic L4 lesion and lytic L5 lesion. IMPRESSION: Right gluteal cellulitis with gas forming organisms. No evidence of drainable fluid collection. No involvement of the adjacent bowel is seen.
[2021-04-04 23:19] LABS: iSTAT Blood Urea Nitrogen > 140 mg/dl (7-18); iSTAT Carbon Dioxide 17 mmol/L (24-31); iSTAT Chloride 95 mmol/L (101-112); iSTAT Creatinine 9.8 mg/dl (0.6-1.3); iSTAT Glucose 119 mg/dl (70-99); iSTAT Hematocrit 22 % (37-47); iSTAT Hemoglobin 7.5 g/dl (12.0-16.0); iSTAT Ionized Calcium 1.29 mmol/l (1.12-1.32); iSTAT Potassium 4.7 mmol/L (3.3-5.0); iSTAT Sodium 130 mmol/L (135-144)
[2021-04-04] MEDS ORDERED: fentaNYL citrate 100 MCG/2 ML VIAL IV STA (23:25)
[2021-04-04 23:43] LABS: Albumin Globulin Ratio 0.5 (0.9-2); Albumin Level 2.2 gm/dl (3.4-5.0); BUN Creatinine Ratio 16.1 (10-20); Bilirubin,Total 0.7 mg/dl (0.2-1); Calcium 9.9 mg/dl (8.5-10.1); Creatinine Clr Calc Pharmacy 8.8 ml/min; Est GFR (African American) 5.1 ml/min; Est GFR (Non-African American) 4.4 ml/min; Globulin 4.4 gm/dl (2.5-4.0); Potassium 4.6 mmol/L (3.5-5.1); Total Protein 6.6 gm/dl (6.4-8.2)
[2021-04-04] MEDS ORDERED: LIDOCAINE/EPINEPHRINE 1% 20 ML VIAL ONE (23:48)
[2021-04-04] MEDS ORDERED: SODIUM CHLORIDE 0.9% 1000ML 1,000 ML IV ONE (23:52)
[2021-04-05 00:16] LABS: Polychromasia 1+
--- NOTE | 2021-04-05 00:33 | Emergency Department Note ---
Impression & Plan Abscess, gluteal, right, Acute renal failure, Acute dehydration, Chronic narcotic dependence, Gas gangrene ED Provider Note CHIEF COMPLAINT: dizzy, weak slurred speech and altered HISTORY OF PRESENT ILLNESS: This 55 yo female patient presents to the emergency department with complaints of dizziness, weakness and slurred speech. The patient apparently suffers from sciatica and has been treated by pain management per her account, recently requiring increased doses of methadone. Patient had also increased her gabapentin and hydromorphone however she thinks this makes her too sleepy. Patient's grandson states he had to skip school today because the patient was in too much pain to take him to school. Apparently the grandson has recently gotten suspended from the bus and requires her to drive him, which she did the day prior. The patient denies any fevers, chills, chest pain or shortness of breath. states she sleeps most of the day and he is concerned about her slurred speech. She has not been able to eat or drink much but has not able to get out of bed or bear weight on that leg. REVIEW OF SYSTEMS: A review of systems was performed with positives and pertinen t negatives listed in the history of present illness. 10 systems were reviewed and are otherwise negative. With complaints of right buttock pain and altered mental status per her at the bedside. The patient ALLERGIES: see below MEDICATIONS: see below PMH: see below SOCIAL HISTORY: see below DDx: Infection, dehydration, medication effect, metabolic abnormality, hypo/hyperglycemia, electrolyte disturbance, anemia, hypoxia, cardiac sources, intracerebral event, toxicologic, neurologic, as well as other pathologies. PHYSICAL EXAM: Vital signs reviewed. General: Chronically-ill appearing 55 yo female, in no significant in significant distress HEENT: No scleral icterus, PERRLA, neck supple. Atraumatic. Cardiovascular: Regular rate and rhythm, no extra sounds. Pulmonary: Clear to auscultation bilaterally, normal work of breathing. Abdomen: Soft, nontender, nondistended, positive bowel sounds. Musculoskeletal: Atraumatic, no peripheral edema. Fistula LUE Neurologic: Patient somnolent but arousable, speech slurred. Equal strength in all four extremities. Skin: Warm, dry, no rash EMERGENCY DEPARTMENT COURSE/MDM: This patient was evaluated and appeared to be in significant discomfort. Patient does have a fistula in the left upper extremity although she does not require dialysis at this time. IV access was difficult to obtain. I did attempt EJ lines bilaterally unsuccessfully. A left femoral line was attempted d/t lack of IV access and blood but I was unable to thread the wire. Blood was obtained from this site and the needle was withdrawn. Laboratory work was even more difficult. CT imaging of the head and pelvis were performed, there is no evidence of an acute stroke however there is significant concern for gas-forming organism related cellulitis of the right gluteal region. After blood cultures were obtained, the patient was medicated with IV Zosyn and IV daptomycin. IV hydration was initiated due to a creatinine greater than 9 as well as a markedly elevated BUN of 130. Patient's potassium is 4.5. General surgery was consulted due to the findings on CT. Patient's WBC is 16 with a normal lactate. Pt and her were informed of the findings and agreed with plan for the OR for wound debridement. The hospitalist was consulted for further management. PROCEDURES: Femoral Central Venous Catheter Indication: lack of access, gas gangrene Location: L femoral vein Verbal consent was obtained after the risks and benefits were explained, including but not limited to intra-abdominal injury, vessel injury, bleeding, scarring, infection, pain, and bone/joint/nerve damage. At this time, the risks of the procedure are less than the risks of NOT performing the procedure. A time out was taken and the correct patient and site identified. The patient was placed in the supine position and the skin was prepped in the standard fashion with chlorhexidine and full sterile drapes applied. The proper landmarks were identified with ultrasound, anesthetized with 1% lidocaine without epinephrine, and the needle was inserted through the skin in the standard fashion. The needle was carefully advanced into blood vessel lumen. The guidewire was unable to be advanced as it kinked near the iliac ligament. Blood was drawn from the site, the needle was withdrawn and a dressing applied. The patient tolerated the procedure well and there were no complications. MONITORING: An order for cardiac monitoring was placed and the patient is noted to be in a NSR at 93 beats per minute. RADIOLOGY: see below I have personally spent 60 minutes of critical care time in the direct management of this patient. This was a life/limb threatening event. This 60 minutes is in excess of all separately billable procedures. 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 Brother No problems noted. Sister Dialysis patient Kidney disease Daughter No problems noted. Daughter Diabetes Social History Smoking Status: Never smoker Second Hand Exposure: No; Hx Alcohol Use: No Hx Substance Use: No Preferred Language: Congolese Communication Ability: Effective Visual Impairment: No Limitations Hearing Ability: Normal Shell Plater Required: No Beliefs That Will Affect Care: None marital status: Current Living Situation: Spouse current occupational status: disabled Feels Safe at Home: Yes caffeine: No during the past year weight has: remained stable Assistive Devices: Oxygen - Continuous Allergies Allergies Allergy/AdvReac Type Severity Reaction Status Date / Time Iodinated Contrast Media AdvReac Severe Patient Verified 04/04/21 21:17 has kidney failure omeprazole AdvReac Severe Increased Verified 04/04/21 21:17 her acid reflux Home Meds Home Medications Medication Instructions Recorded Confirmed cholecalciferol (vitamin D3) 125 125 mcg PO QAM 01/11/20 04/04/21 mcg (5,000 unit) capsule furosemide 40 mg tablet (Lasix) 60 mg PO BID tab 01/11/20 04/04/21 gabapentin 300 mg capsule 300 mg PO TID 01/11/20 04/04/21 losartan 25 mg tablet 25 mg PO QAM 01/11/20 04/04/21 amlodipine 10 mg tablet 10 mg PO QAM 03/15/21 04/04/21 doxycycline hyclate 100 mg capsule 100 mg PO QAM 03/15/21 04/04/21 glucagon 1 mg solution for 0 mg IM UD 03/15/21 04/04/21 injection (Glucagon Emergency Kit) hydromorphone 4 mg tablet 4 mg PO Q6H PRN 03/15/21 04/04/21 insulin NPH isoph U-100 human 100 35 unit SUBCUT BID 03/15/21 04/04/21 unit/mL (3 mL) subcutaneous pen (Humulin N NPH U-100 Insulin KwikPen) insulin aspart U-100 100 unit/mL 1 sliding scale dose SUBCUT 03/15/21 04/04/21 subcutaneous solution (Novolog USEASDIRECTD U-100 Insulin aspart) labetalol 100 mg tablet 100 mg PO BID 03/15/21 04/04/21 levothyroxine 125 mcg tablet 125 mcg PO DAILYBB 03/15/21 04/04/21 methadone 5 mg tablet 5 mg PO BID 03/15/21 04/04/21 Results & Data (ED) Vital Signs Vital Signs - 24 hr 04/05/21 02:46 04/05/21 02:55 04/05/21 03:05 Temperature 36.1 C L Temperature Source Temporal Artery Scan Pulse Rate 88 Pulse Rate [Apical] 75 90 88 Pulse Rhythm [Apical] Regular Regular Regular Respiratory Rate 18 22 19 Respiratory Effort / Characteristics Other Other Other Blood Pressure [Right Arm] 95/43 L 93/57 L 133/72 Blood Pressure [Right Radial Artery] 154/54 H 161/68 H Blood Pressure Mean [Right Arm] 60 69 92 Blood Pressure Mean [Right Radial Artery] 87 99 Pulse Oximetry 95 99 93 Oxygen Delivery Method Other Other Other Fraction of Inspired Oxygen 40 40 40 SaO2/FiO2 Ratio 237 237 232 End-Tidal CO2 31 04/05/21 03:15 Temperature 36.1 C L Temperature Source Temporal Artery Scan Pulse Rate Pulse Rate [Apical] 87 Pulse Rhythm [Apical] Regular Respiratory Rate 20 Respiratory Effort / Characteristics Other Blood Pressure [Right Arm] 141/74 H Blood Pressure [Right Radial Artery] 157/50 H Blood Pressure Mean [Right Arm] 96 Blood Pressure Mean [Right Radial Artery] 85 Pulse Oximetry 94 Oxygen Delivery Method Other Fraction of Inspired Oxygen 40 SaO2/FiO2 Ratio 235 End-Tidal CO2 Home Medications Current Medication List: was personally reviewed by me Laboratory Data Attestation: I reviewed the patient's lab results. Result diagrams: 04/05/21 13:41 04/05/21 19:58 Lab Results 04/04/21 04/04/21 04/04/21 Range/Units 21:28 21:28 22:54 WBC (4.8-10.8) K/uL RBC (4.2-5.4) M/uL Hgb (12.0-16.0) g/dL POC Hgb (12.0-16.0) g/dl Hct (37-47) % POC Hct (37-47) % MCV (80-100) fL MCH (25-34) pg MCHC (32-36) g/dL RDW Std Deviation (36.4-46.3) fL RDW Coeff of Padmini (11.5-14.5) % Plt Count (130-400) K/uL MPV (7.4-10.4) fL Immature Gran % (Auto) % Neut % (Auto) % Lymph % (Auto) % Hendry % (Auto) % Eos % (Auto) % Baso % (Auto) % Neut # (Auto) (1.4-6.5) K/uL Lymph # (Auto) (1.2-3.4) K/uL Hendry # (Auto) (0.11-0.59) K/uL Eos # (Auto) (0-0.5) K/uL Baso # (Auto) (0-0.2) K/uL Immature Gran # (Auto) (0.00-0.02) K/uL Polychromasia POC Sodium (135-144) mmol/L Sodium (136-145) mmol/L POC Potassium (3.3-5.0) mmol/L Potassium (3.5-5.1) mmol/L POC Chloride (101-112) mmol/L Chloride (98-107) mmol/L Carbon Dioxide (21-32) mmol/L POC Total CO2 (24-31) mmol/L Anion Gap (3-11) POC Anion Gap (16-25) mmol/L POC BUN (7-18) mg/dl BUN (7-18) mg/dl Creatinine (0.6-1.2) mg/dl POC Creatinine (0.6-1.3) mg/dl Est Cr Clr Drug Dosing ml/min Est GFR ( Amer) ml/min Est GFR (Non-Af Amer) ml/min BUN/Creatinine Ratio (10-20) Glucose (70-99) mg/dl POC Glucose (70-99) mg/dl POC Glucose (other) (70-99) mg/dl POC Lactic Acid Junaid (0.90-1.70) mmol/L Lactate 1.1 (0.4-2.0) mmol/L Calcium (8.5-10.1) mg/dl POC Ioniz Calcium Serena (1.12-1.32) mmol/l Total Bilirubin (0.2-1) mg/dl AST (15-37) U/L ALT (12-78) U/L Alkaline Phosphatase (45-117) U/L Total Protein (6.4-8.2) gm/dl Albumin (3.4-5.0) gm/dl Globulin (2.5-4.0) gm/dl Albumin/Globulin Ratio (0.9-2) COVID-19 Eval Order Covid19 at [facility] SARS-CoV-2 (PCR) NEGATIVE (Negative) 04/04/21 04/04/21 04/04/21 Range/Units 22:54 22:54 22:56 WBC 16.22 H (4.8-10.8) K/uL RBC 2.51 L (4.2-5.4) M/uL Hgb 7.6 L (12.0-16.0) g/dL POC Hgb (12.0-16.0) g/dl Hct 23.7 L (37-47) % POC Hct (37-47) % MCV 94.4 (80-100) fL MCH 30.3 (25-34) pg MCHC 32.1 (32-36) g/dL RDW Std Deviation 45.9 (36.4-46.3) fL RDW Coeff of Padmini 13.0 (11.5-14.5) % Plt Count 204 (130-400) K/uL MPV 10.2 (7.4-10.4) fL Immature Gran % (Auto) 0.7 % Neut % (Auto) 85.6 % Lymph % (Auto) 5.8 % Hendry % (Auto) 7.5 % Eos % (Auto) 0.3 % Baso % (Auto) 0.1 % Neut # (Auto) 13.90 H (1.4-6.5) K/uL Lymph # (Auto) 0.94 L (1.2-3.4) K/uL Hendry # (Auto) 1.21 H (0.11-0.59) K/uL Eos # (Auto) 0.05 (0-0.5) K/uL Baso # (Auto) 0.01 (0-0.2) K/uL Immature Gran # (Auto) 0.11 H (0.00-0.02) K/uL Polychromasia 1+ POC Sodium (135-144) mmol/L Sodium 131 L (136-145) mmol/L POC Potassium (3.3-5.0) mmol/L Potassium 4.6 (3.5-5.1) mmol/L POC Chloride (101-112) mmol/L Chloride 97 L (98-107) mmol/L Carbon Dioxide 19 L (21-32) mmol/L POC Total CO2 (24-31) mmol/L Anion Gap 15.0 H (3-11) POC Anion Gap (16-25) mmol/L POC BUN (7-18) mg/dl BUN 146 H (7-18) mg/dl Creatinine 9.15 H* (0.6-1.2) mg/dl POC Creatinine (0.6-1.3) mg/dl Est Cr Clr Drug Dosing 8.8 ml/min Est GFR ( Amer) 5.1 ml/min Est GFR (Non-Af Amer) 4.4 ml/min BUN/Creatinine Ratio 16.1 (10-20) Glucose 123 H (70-99) mg/dl POC Glucose (70-99) mg/dl POC Glucose (other) (70-99) mg/dl POC Lactic Acid Junaid 0.92 (0.90-1.70) mmol/L Lactate (0.4-2.0) mmol/L Calcium 9.9 (8.5-10.1) mg/dl POC Ioniz Calcium Serena (1.12-1.32) mmol/l Total Bilirubin 0.7 (0.2-1) mg/dl AST 140 H (15-37) U/L ALT 143 H (12-78) U/L Alkaline Phosphatase 65 (45-117) U/L Total Protein 6.6 (6.4-8.2) gm/dl Albumin 2.2 L (3.4-5.0) gm/dl Globulin 4.4 H (2.5-4.0) gm/dl Albumin/Globulin Ratio 0.5 L (0.9-2) COVID-19 Eval Order SARS-CoV-2 (PCR) (Negative) 04/04/21 04/05/21 Range/Units 23:01 03:02 WBC (4.8-10.8) K/uL RBC (4.2-5.4) M/uL Hgb (12.0-16.0) g/dL POC Hgb 7.5 L (12.0-16.0) g/dl Hct (37-47) % POC Hct 22 L (37-47) % MCV (80-100) fL MCH (25-34) pg MCHC (32-36) g/dL RDW Std Deviation (36.4-46.3) fL RDW Coeff of Padmini (11.5-14.5) % Plt Count (130-400) K/uL MPV (7.4-10.4) fL Immature Gran % (Auto) % Neut % (Auto) % Lymph % (Auto) % Hendry % (Auto) % Eos % (Auto) % Baso % (Auto) % Neut # (Auto) (1.4-6.5) K/uL Lymph # (Auto) (1.2-3.4) K/uL Hendry # (Auto) (0.11-0.59) K/uL Eos # (Auto) (0-0.5) K/uL Baso # (Auto) (0-0.2) K/uL Immature Gran # (Auto) (0.00-0.02) K/uL Polychromasia POC Sodium 130 L (135-144) mmol/L Sodium (136-145) mmol/L POC Potassium 4.7 (3.3-5.0) mmol/L Potassium (3.5-5.1) mmol/L POC Chloride 95 L (101-112) mmol/L Chloride (98-107) mmol/L Carbon Dioxide (21-32) mmol/L POC Total CO2 17 L (24-31) mmol/L Anion Gap (3-11) POC Anion Gap 24.0 (16-25) mmol/L POC BUN > 140 H* (7-18) mg/dl BUN (7-18) mg/dl Creatinine (0.6-1.2) mg/dl POC Creatinine 9.8 H* (0.6-1.3) mg/dl Est Cr Clr Drug Dosing ml/min Est GFR ( Amer) ml/min Est GFR (Non-Af Amer) ml/min BUN/Creatinine Ratio (10-20) Glucose (70-99) mg/dl POC Glucose 129 H (70-99) mg/dl POC Glucose (other) 119 H (70-99) mg/dl POC Lactic Acid Junaid (0.90-1.70) mmol/L Lactate (0.4-2.0) mmol/L Calcium (8.5-10.1) mg/dl POC Ioniz Calcium Serena 1.29 (1.12-1.32) mmol/l Total Bilirubin (0.2-1) mg/dl AST (15-37) U/L ALT (12-78) U/L Alkaline Phosphatase (45-117) U/L Total Protein (6.4-8.2) gm/dl Albumin (3.4-5.0) gm/dl Globulin (2.5-4.0) gm/dl Albumin/Globulin Ratio (0.9-2) COVID-19 Eval Order SARS-CoV-2 (PCR) (Negative) Administered Medications Fentanyl Citrate (Fentanyl Bolus From Bag) 50 mcg IV Q60M PRN PRN Reason: Pain or Agitation Stop: 04/19/21 03:45 Last Admin: 04/05/21 17:48 Dose: 50 mcg Documented by: [id number] Admin: 04/05/21 08:30 Dose: 50 mcg Documented by: [id number] Norepinephrine Bitartrate (Levophed/D5w) 8 mg in 508 mls @ 32.553 mls/hr IV .[id number] [facility]; Protocol Stop: 05/05/21 03:59 Last Admin: 04/05/21 20:42 Dose: 0.08 mcg/kg/min, 32.6 mls/hr Documented by: [id number] Cosigned by: [id number] Titration: 04/05/21 20:02 Dose: 0.08 mcg/kg/min, 32.6 mls/hr Documented by: [id number] Cosigned by: [id number] Titration: 04/05/21 19:02 Dose: 0.08 mcg/kg/min, 32.6 mls/hr Documented by: [id number] Cosigned by: [id number] Titration: 04/05/21 17:48 Dose: 0.08 mcg/kg/min, 32.6 mls/hr Documented by: [id number] Titration: 04/05/21 10:34 Dose: 0.09 mcg/kg/min, 36.6 mls/hr Documented by: [id number] Titration: 04/05/21 09:48 Dose: 0.08 mcg/kg/min, 32.6 mls/hr Documented by: [id number] Titration: 04/05/21 07:07 Dose: 0.07 mcg/kg/min, 28.5 mls/hr Documented by: [id number] Cosigned by: [id number] Titration: 04/05/21 05:31 Dose: 0.07 mcg/kg/min, 28.5 mls/hr Documented by: [id number] Admin: 04/05/21 04:21 Dose: 0.05 mcg/kg/min, 20.3 mls/hr Documented by: [id number] Cosigned by: [id number] Propofol (Diprivan) 1,000 mg in 100 mls @ 16.02 mls/hr IV .[id number] [facility]; Protocol Stop: 04/08/21 03:59 Last Admin: 04/05/21 23:08 Dose: 25 mcg/kg/min, 16 mls/hr Documented by: [id number] Cosigned by: [id number] Titration: 04/05/21 22:50 Dose: 25 mcg/kg/min, 16 mls/hr Documented by: [id number] Cosigned by: [id number] Titration: 04/05/21 19:02 Dose: 25 mcg/kg/min, 16 mls/hr Documented by: [id number] Cosigned by: [id number] Titration: 04/05/21 17:47 Dose: 25 mcg/kg/min, 16 mls/hr Documented by: [id number] Admin: 04/05/21 16:17 Dose: 20 mcg/kg/min, 12.8 mls/hr Documented by: [id number] Cosigned by: [id number] Titration: 04/05/21 16:15 Dose: 20 mcg/kg/min, 12.8 mls/hr Documented by: [id number] Cosigned by: [id number] Admin: 04/05/21 08:26 Dose: 20 mcg/kg/min, 12.8 mls/hr Documented by: [id number] Cosigned by: [id number] Titration: 04/05/21 08:26 Dose: 20 mcg/kg/min, 12.8 mls/hr Documented by: [id number] Cosigned by: [id number] Titration: 04/05/21 07:07 Dose: 20 mcg/kg/min, 12.8 mls/hr Documented by: [id number] Cosigned by: [id number] Admin: 04/05/21 04:13 Dose: 20 mcg/kg/min, 12.8 mls/hr Documented by: [id number] Cosigned by: [id number] Acetaminophen (Ofirmev) 1,000 mg in 100 mls @ 400 mls/hr IV Q8H PRN PRN Reason: Fever/Mild Pain (Pain 1,2,3) Stop: 04/08/21 03:45 Last Infusion: 04/05/21 18:40 Dose: 0 mls/hr Documented by: [id number] Admin: 04/05/21 17:44 Dose: 400 mls/hr Documented by: [id number] Fentanyl Citrate (Fentanyl Drip) 1,250 mcg in 250 mls @ 15 mls/hr IV .[id number] [facility]; Protocol Stop: 04/19/21 03:59 Last Titration: 04/05/21 19:02 Dose: 75 mcg/hr, 15 mls/hr Documented by: [id number] Cosigned by: [id number] Admin: 04/05/21 16:17 Dose: 75 mcg/hr, 15 mls/hr Documented by: [id number] Cosigned by: [id number] Titration: 04/05/21 16:17 Dose: 75 mcg/hr, 15 mls/hr Documented by: [id number] Cosigned by: [id number] Titration: 04/05/21 08:27 Dose: 75 mcg/hr, 15 mls/hr Documented by: [id number] Cosigned by: [id number] Titration: 04/05/21 07:07 Dose: 50 mcg/hr, 10 mls/hr Documented by: [id number] Cosigned by: [id number] Titration: 04/05/21 05:31 Dose: 50 mcg/hr, 10 mls/hr Documented by: [id number] Cosigned by: [id number] Admin: 04/05/21 04:17 Dose: 25 mcg/hr, 5 mls/hr Documented by: [id number] Cosigned by: [id number] Clindamycin Phosphate 600 mg/ (Dextrose) 54 mls @ 100 mls/hr IV Q8H [facility] Stop: 04/12/21 03:59 Last Infusion: 04/05/21 21:36 Dose: 0 mls/hr Documented by: [id number] Admin: 04/05/21 20:41 Dose: 100 mls/hr Documented by: [id number] Infusion: 04/05/21 12:45 Dose: 0 mls/hr Documented by: [id number] Admin: 04/05/21 11:52 Dose: 100 mls/hr Documented by: [id number] Infusion: 04/05/21 05:15 Dose: 0 mls/hr Documented by: [id number] Admin: 04/05/21 04:22 Dose: 100 mls/hr Documented by: [id number] Piperacillin Sod/Tazobactam (Sod 4.5 gm/ Dextrose) 120 mls @ 30 mls/hr IV Q12H [facility]; Protocol Stop: 04/12/21 05:59 Last Infusion: 04/05/21 21:36 Dose: 0 mls/hr Documented by: [id number] Admin: 04/05/21 17:33 Dose: 30 mls/hr Documented by: [id number] Infusion: 04/05/21 09:50 Dose: 0 mls/hr Documented by: [id number] Admin: 04/05/21 05:49 Dose: 30 mls/hr Documented by: [id number] Sodium Bicarbonate 150 meq/ (Dextrose) 1,150 mls @ 100 mls/hr IV .[id number] [facility] Stop: 05/05/21 10:59 Last Admin: 04/05/21 21:33 Dose: 100 mls/hr Documented by: [id number] Infusion: 04/05/21 21:33 Dose: 100 mls/hr Documented by: [id number] Admin: 04/05/21 10:59 Dose: 100 mls/hr Documented by: [id number] Insulin Aspart (Insulin Aspart 100 Units/Ml 3 Ml Pen) 0 units SC Q6 KIRT Stop: 05/05/21 06:29 Last Admin: 04/05/21 23:14 Dose: 6 units Documented by: [id number] Cosigned by: [id number] Admin: 04/05/21 17:33 Dose: 5 units Documented by: [id number] Cosigned by: [id number] Admin: 04/05/21 11:53 Dose: 3 units Documented by: [id number] Cosigned by: [id number] Admin: 04/05/21 07:10 Dose: 2 units Documented by: [id number] Cosigned by: [id number] Discontinued Medications Fentanyl Citrate (Fentanyl Citrate 100 Mcg/2 Ml Vial) 50 mcg IV NOW STA Stop: 04/04/21 23:26 Last Admin: 04/05/21 04:00 Dose: Not Given Documented by: [id number] Fentanyl Citrate (Fentanyl Citrate 1250mcg/250ml Nss) Confirm Administered Dose 1,250 mcg IV .STK-MED ONE Stop: 04/05/21 03:37 Last Admin: 04/05/21 04:13 Dose: Not Given Documented by: [id number] Ceftriaxone Sodium (Rocephin) 2,000 mg in 70 mls @ 140 mls/hr IV NOW STA Stop: 04/04/21 21:29 Last Admin: 04/04/21 23:00 Dose: Not Given Documented by: [id number] Sodium Chloride (Nss) 500 mls @ 999 mls/hr IV .Q31M ONE Stop: 04/04/21 21:32 Last Infusion: 04/04/21 22:15 Dose: 0 mls/hr Documented by: [id number] Admin: 04/04/21 21:36 Dose: 999 mls/hr Documented by: [id number] Piperacillin Sod/Tazobactam Sod (Zosyn) 4.5 gm in 120 mls @ 240 mls/hr IV NOW ONE Stop: 04/04/21 22:32 Last Infusion: 04/04/21 23:15 Dose: 0 mls/hr Documented by: [id number] Admin: 04/04/21 22:40 Dose: 240 mls/hr Documented by: [id number] Daptomycin 375 mg/ Syringe 7.5 mls @ 3.75 mls/min IV NOW ONE; Protocol Stop: 04/04/21 22:04 Last Admin: 04/04/21 23:07 Dose: 3.75 mls/min Documented by: [id number] Sodium Chloride (Nss 1000ml) 500 mls @ 999 mls/hr IV .Q31M ONE Stop: 04/04/21 22:34 Last Infusion: 04/04/21 23:28 Dose: 0 mls/hr Documented by: [id number] Admin: 04/04/21 22:41 Dose: 999 mls/hr Documented by: [id number] Sodium Chloride (Nss 1000ml) 1,000 mls @ 150 mls/hr IV .Q6H40M [facility] Stop: 05/04/21 22:14 Last Infusion: 04/05/21 04:14 Dose: 0 mls/hr Documented by: [id number] Admin: 04/04/21 23:36 Dose: 150 mls/hr Documented by: [id number] Sodium Chloride (Nss 1000ml) 1,000 mls @ 999 mls/hr IV .Q1H1M ONE Stop: 04/05/21 00:52 Last Infusion: 04/05/21 03:29 Dose: 0 mls/hr Documented by: [id number] Admin: 04/05/21 00:15 Dose: 999 mls/hr Documented by: [id number] Parenteral Electrolytes (Normosol-R) 1,000 mls @ 80 mls/hr IV .[id number] [facility] Stop: 05/05/21 03:59 Last Infusion: 04/05/21 10:35 Dose: 0 mls/hr Documented by: [id number] Admin: 04/05/21 04:14 Dose: 80 mls/hr Documented by: [id number] Lactated Ringer's (Lr) 500 mls @ 999 mls/hr IV .Q31M ONE Stop: 04/05/21 09:33 Last Infusion: 04/05/21 09:51 Dose: 0 mls/hr Documented by: [id number] Admin: 04/05/21 09:40 Dose: 999 mls/hr Documented by: [id number] Lidocaine/Epinephrine (Lidocaine/Epinephrine 1% 20 Ml Vial) Confirm Administered Dose 20 ml .ROUTE .STK-MED ONE Stop: 04/04/21 23:49 Last Admin: 04/05/21 02:21 Dose: 10 ml Documented by: [id number] Naloxone HCl (Naloxone Hcl 0.4 Mg/1 Ml Vial/Carp) 0.2 mg IV NOW STA Stop: 04/04/21 20:52 Last Admin: 04/04/21 22:12 Dose: Not Given Documented by: [id number] Propofol (Propofol Iv Emulsion 10 Mg/Ml 100 Ml Vial) Confirm Administered Dose 1,000 mg IV .[employer]-MED ONE Stop: 04/05/21 03:08 Last Admin: 04/05/21 04:13 Dose: Not Given Documented by: [id number] Imaging Data Radiologist's Impression: Head CT 04/04/21 20:51 CT head/brain wo con CLINICAL HISTORY: AMS, slurred speech, narcotics Technique: Contiguous axial CT images of the head were acquired from the base of the skull to the vertex without intravenous contrast administration. Images were viewed in brain, subdural and bone windows. Automated dose lowering techniques and/or adjustment according to patient size were utilized for this exam. Comparison: None available at the time of this dictation. Findings: The ventricles, basal cisterns, and cerebral sulci are normal. There is no acute intracranial hemorrhage or evidence of acute territorial infarction. Neither mass effect, shift of the midline structures, nor abnormal extra-axial fluid collections are shown. Soft tissue thickening is seen in the bilateral maxillary sinuses. The orbits appear normal. There are no acute fractures of the calvaria or scalp swelling. Impression: No acute intracranial hemorrhage, no evidence of acute territorial infarction or other acute intracranial disease process. ACT 112: Negative or not required by law. Electronically signed by: Rm Flores M.D. 04/04/2021 9:[address] 04/04/21 21:01 CT pelvis wo con CLINICAL HISTORY: R gluteal cellulitis, abscess TECHNIQUE: Helical axial images of the abdomen and pelvis were obtained and displayed at 5 and 1 mm intervals. Automated dose lowering techniques and/or adjustment according to patient size were utilized for this exam. This exam was performed with intravenous contrast. COMPARISON: Comparison is made to CT abdomen pelvis 07/27/2017 FINDINGS: Bowel: Diverticulosis is seen without evidence of diverticulitis. The appendix is normal. Lymph nodes Mesenteric: Unremarkable. Pelvic: Unremarkable. Bladder: Unremarkable. Reproductive organs: Postsurgical changes are seen, likely representing tubal ligation. Peritoneum: Normal Vessels: Atherosclerotic calcifications are seen. Soft tissues: There is fat stranding and subcutaneous emphysema in the right gluteus. The region of fat stranding is also seen in the supraumbilical soft tissues. No drainable fluid collection is seen. Bones: Redemonstration of mixed lytic and sclerotic L4 lesion and lytic L5 lesion. IMPRESSION: Right gluteal cellulitis with gas forming organisms. No evidence of drainable fluid collection. No involvement of the adjacent bowel is seen. ACT 112: Negative or not required by law. Electronically signed by: Rm Flores M.D. 04/04/2021 10:08 PM Discharge Plan Visit Data Chief Complaint: Vertigo Stated Complaint: HEADACHE, DIZZY, NAUSEA ED Provider: Malorie Kelley Discharge Problem: Abscess, gluteal, right, Acute renal failure, Acute dehydration, Chronic narcotic dependence, Gas gangrene Patient Disposition: Still a Patient Discharge Instructions Interventions: ED Discharge Assessment Last Done: 04/05/21 00:30 Discharge Problem: Acute renal failure Qualifiers: Acute renal failure type: unspecified Qualified Code(s): N17.9 - Acute kidney failure, unspecified
--- NOTE | 2021-04-05 00:51 | Anesthesiology Consultation ---
Date of Service April 05, 2021 Assessment & Plan Chart Review Chart Review: Acceptable Risk for Surgery and Patient NOT seen in Pre Admission Testing Consults Requested none ASA [id number] Proposed Anesthesia Anesthesia Type: General Risk / Benefits Reviewed With: PT / POA / Parent / Guardian, Accepts Plan and Informed Consent Obtained History Surgery Operation Date: 04/04/21 23:30 Proposed Procedures p Rectal Surgery - Mateusz Carrizales MD Height/Weight Height: 5 ft 7 in Weight: 106.8 kg Allergies Allergy/AdvReac Type Severity Reaction Status Date / Time Iodinated Contrast Media AdvReac Severe Patient Verified 04/04/21 21:17 has kidney failure omeprazole AdvReac Severe Increased Verified 04/04/21 21:17 her acid reflux Medications Home Medications Medication Instructions Recorded Confirmed Last Taken cholecalciferol (vitamin D3) 125 125 mcg PO QAM 01/11/20 04/04/21 04/04/21 mcg (5,000 unit) capsule furosemide 40 mg tablet (Lasix) 60 mg PO BID tab 01/11/20 04/04/21 04/04/21 08:00 gabapentin 300 mg capsule 300 mg PO TID 01/11/20 04/04/21 04/04/21 08:00 losartan 25 mg tablet 25 mg PO QAM 01/11/20 04/04/21 04/04/21 amlodipine 10 mg tablet 10 mg PO QAM 03/15/21 04/04/21 04/04/21 doxycycline hyclate 100 mg capsule 100 mg PO QAM 03/15/21 04/04/21 04/04/21 glucagon 1 mg solution for 0 mg IM UD 03/15/21 04/04/21 Unknown injection (Glucagon Emergency Kit) hydromorphone 4 mg tablet 4 mg PO Q6H PRN 03/15/21 04/04/21 Unknown insulin NPH isoph U-100 human 100 35 unit SUBCUT BID 03/15/21 04/04/21 04/04/21 08:00 unit/mL (3 mL) subcutaneous pen (Humulin N NPH U-100 Insulin KwikPen) insulin aspart U-100 100 unit/mL 1 sliding scale dose SUBCUT 03/15/21 04/04/21 04/04/21 08:00 subcutaneous solution (Novolog USEASDIRECTD U-100 Insulin aspart) labetalol 100 mg tablet 100 mg PO BID 03/15/21 04/04/21 04/04/21 08:00 levothyroxine 125 mcg tablet 125 mcg PO DAILYBB 03/15/21 04/04/21 04/04/21 methadone 5 mg tablet 5 mg PO BID 03/15/21 04/04/21 04/04/21 08:00 Active Medications Generic Name Dose Route Start Last Admin Trade Name Salvador PRN Reason Stop Dose Admin Sodium Chloride 1,000 mls @ 150 mls/hr 04/04/21 22:15 04/04/21 23:36 Nss 1000ml IV 05/04/21 22:14 150 mls/hr .Q6H40M KIRT Administration Sodium Chloride 1,000 mls @ 999 mls/hr 04/04/21 23:52 04/05/21 00:15 Nss 1000ml IV 04/05/21 00:52 999 mls/hr .Q1H1M ONE Administration NPO Date Last Intake of Fluids: 04/04/21 Last Intake of Fluids Comment: Pt. reports sips of water while in the waiting room. Date Last Intake of Solids: 04/04/21 Last Intake of Solids Comment: Pt. reports eating some candy prior to arrival. Denies other solids. Past Medical History Medical History Acid reflux Amputation of right great toe Anemia Chronic kidney disease Diabetes Diabetic retinopathy H/O vocal cord paralysis Right side Hypertension Pneumonia (10/05/13) Retinal hemorrhage, right eye Sepsis Shortness of breath (10/05/13) Thyroid cancer Thyroid nodule Exercise / Class Metabolic Activity II 4-5 Yardwork/Stairs/Walk up hill Past Family History Family History Mother , 70yo Valvular heart disease Diabetes Father , 74yo Pneumonia Diabetes Brother No problems noted. Brother No problems noted. Sister Dialysis patient Kidney disease Daughter No problems noted. Daughter Diabetes Past Surgical History Surgical History H/O thyroidectomy Partial thyroidectomy History of cholecystectomy History of surgery Surgery to removed benign tumor from right vocal cord; Hx of cataract surgery Bilateral Hx of tonsillectomy Previous section Past Anesthesia History No Hx of Anesthesia Complications and No Family Hx of Anesthesia Complications History of PONV No Hx of PONV and No Hx of Motion Sickness Social History Smoking Status: Never smoker Hx Alcohol Use: No Hx Substance Use: No Physical Exam Vital Signs Last Vital Signs Temp 37.2 C 04/04/21 23:16 Pulse 93 H 04/05/21 00:00 Resp 24 04/05/21 00:00 BP 101/31 L 04/04/21 23:30 Pulse Ox 96 04/05/21 00:00 Constitutional + obese ENMT Mouth: no dentition abnormality Thyromental Distance: > or= 3.5 Finger Breadths Mallampati Class: II Neck normal visual inspection, + short neck and + thick neck Respiratory + tachypneic Auscultation: lungs clear to auscultation bilaterally Cardiovascular Rate/Rhythm: regular rhythm and + tachycardic Psychiatric Orientation: alert Testing Laboratory Results 04/04/21 22:54 04/04/21 22:54 04/04/21 23:01 POC Glucose (other) 119 H
[2021-04-05] MEDS ORDERED: LIDOCAINE 2% 2 ML VIAL/AMP(20MG/ML) INFIL ONE (00:54)
[2021-04-05] MEDS ORDERED: fentaNYL citrate 100 MCG/2 ML VIAL ONE (00:54)
[2021-04-05] MEDS ORDERED: PROPOFOL IV EMULSION 10 MG/ML 20 ML VIAL IV ONE (00:54)
[2021-04-05] MEDS ORDERED: SUCCINYLCHOLINE CHLORIDE 20 MG/ML 10 ML VIAL IV ONE (00:54)
[2021-04-05] MEDS ORDERED: ROCURONIUM BROMIDE 10 MG/ML 5 ML VIAL IV ONE (00:54)
--- NOTE | 2021-04-05 02:28 | Post Operative Brief Note ---
Immediate Post Op Note v1 Date of Surgery April 05, 2021 Pre & Post Diagnosis Operation Date: 04/04/21 23:30 Pre-Op Diagnosis: Right Gluteal Abscess Post-Op Diagnosis: Right Gluteal Abscess I identified the patient and participated in the time-out.: Yes Procedure Operation Date: 04/04/21 23:30 Actual Procedures p Incision and Drainage of Right Gluteal Abscess(Right) - Mateusz Carrizales MD Surgeon Mateusz Carrizales MD Healthcare Interpreter none Estimated Blood Loss 20 Findings Consistent with Post-Op Diagnosis significant necrotic tissue extending superolaterally and deep; sharply removed and cavity pulse evacuated; wound measures 14 x 4 x 10 cm
[2021-04-05] MEDS ORDERED: NOREPINEPHRINE BITARTRATE 1 MG/ML 4 ML VIAL IV ONE (02:38)
--- NOTE | 2021-04-05 03:06 | Anesthesiology Progress Note ---
Date of Service April 05, 2021 Anesthesia Post Procedure Vital Signs Vital Signs: Temp Pulse Pulse Resp BP BP Pulse Ox 04/05/21 00:00 93 H 24 96 04/04/21 23:31 88 L 04/04/21 23:30 94 H 19 101/31 L 97 04/04/21 23:16 37.2 C 94 H 15 106/47 L 93 04/04/21 23:00 97 H 22 106/47 L 91 04/04/21 22:59 97 H 30 H 109/86 93 04/04/21 22:32 96 H 28 H 108/51 L 94 04/04/21 22:00 98 H 21 04/04/21 21:30 92 H 15 90 04/04/21 21:00 92 H 16 04/04/21 20:49 93 H 29 H 67 L 04/04/21 20:41 93 H 20 93/51 L 04/04/21 15:17 36.9 C 114 H 17 92/47 L 96 Transfer of Care Handoff Completed per policy Notes Mental Status: see notes below Patient Amnestic to Procedure: No Nausea / Vomiting: see Notes below Pain: see Notes below Airway Patency, RR, SpO2: see Notes below BP & HR: see Notes below Hydration State: see Notes below Anesthetic Complications: no major complications apparent Notes: Patient in septic shock prior to OR, and continues to post operative course. Operative site left packed and open, surgical plan is to revisit in the OR for further washout and debreidment in 24-36 hours. Patient requiring vasoactive support at low dose. I spoke with the critical care team in the OR, and decision was reached to leave the patient intubated pending further operative management. Care is transfered to ICU in critical but stable condition. Personal signoff to the ICU practitioner, who is in contact with the attending. CXR ordered for line/tube placement. Drips: Norepinephrine @ 0.05 mcg/k/min Vent: 450/16/50/5
[2021-04-05] MEDS ORDERED: ATROPINE SULFATE 0.1 MG/ML 10ML SYR IV PRN (03:07)
[2021-04-05] MEDS ORDERED: PROPOFOL IV EMULSION 10 MG/ML 100 ML VIAL IV ONE (03:07)
[2021-04-05] MEDS ORDERED: ePHEDrine sulfate 50 MG/ML AMP IV PRN (03:07)
[2021-04-05] MEDS ORDERED: PROPOFOL BOLUS FROM BAG IV PRN (03:46)
[2021-04-05] MEDS ORDERED: ICU PROTOCOL FOR HYPERGLYCEMIA PRN (03:46)
[2021-04-05] MEDS ORDERED: STAT IV Infusion **Titration per Protocol STA (03:46)
[2021-04-05] MEDS ORDERED: PIPERACILL/TAZOBAC CONSULT ACTIVE PRN (03:51)
[2021-04-05 03:55] LABS: iSTAT Arterial Blood Gas HCO3 16 meg/L (19-24); iSTAT Arterial Blood Gas pCO2 36 mmHg (35-46); iSTAT Arterial Blood Gas pH 7.25 (7.35-7.45); iSTAT Arterial Blood Gas pO2 80 mmHg (80-95); iSTAT Carbon Dioxide 17 mmol/L (24-31); iSTAT FiO2 40 %; iSTAT Site Art Line
--- NOTE | 2021-04-05 03:59 | Critical Care Consultation ---
Date of Consultation April 05, 2021 Assessment & Plan (1) Abscess, gluteal, right: Reason Critically Ill: 55-year-old female with RIGHT gluteal abscess with concerns for gas producing organism who is status post I&D as well as wound debridement requiring vasopressors and close hemodynamic monitoring status post intervention. NEURO - * CAM ICU: NEGATIVE * Sedation: Propofol * Pain: Fentanyl CARDIAC/VASCULAR - * Hypertension * Hold antihypertensive currently as the patient is requiring vasopressors. * Monitor on telemetry. RESPIRATORY - * Remains endotracheally intubated: * Patient remains intubated status post surgical debridement. Likely to return to or within the next 24 to 48 hours. * Saturating well on minimal settings. GI/NUTRITION - * OG in place * Consider addition of tube feeds if patient remained intubated for next 24 to 48 hours. RENAL/LYTES - * Chronic kidney disease: * Patient baseline creatinine in the fours. MARK ANTHONY presumed with baseline creatinine greater than 9. * Thankfully, her electrolytes within normal limits. * She still makes scant amount of urine. * IVF: Normosol at 80 mL's per hour. - * Liz in place - Strict I&Os. ENDO - * IDDM * BSGs per unit protocol. ISS --> gtt per unit policy. HEME - * Anemia of chronic disease. * Monitor H&H --> transfuse if needed. ID - * RIGHT Gluteaal abscess with concerns for gas producing organism: * Source control s/p I&D with wound debridement. * Received Rocephin, Dapto, Zosyn in the ED. * Continue Dapto, Zosyn. * Will add Clindamycin in the setting of gas producing organisms. * Wound cultures pending. LINES/IV ACCESS - * PIVs x1 * RIGHT IJ CVL * RIGHT Radial Arterial Line * ET Tube * OG * Liz DVT PROPHYLAXIS - * Hold on chemoprophylaxis s/p extensive debridement/I&D w/ intent to return to the OR in 24-48hrs. * SCDs I have personally spent 45 minutes of critical care time in the direct management of this patient. This is a life/limb threatening event. This includes time spent evaluating patient, direct bedside care, chart review, placing orders, interpretation of diagnostic studies, discussion with consultants, patient, and family members, as well as other required patient management activities. This time is exclusive of all separately billable procedures, and teaching time and separate from and in addition to any other critical care service time. Thank you for allowing us to participate in the care of this patient. Please refer to my attending physician's documentation for any further recommendations. (2) Gas gangrene: (3) Chronic narcotic dependence: Supervising Physician Co-Signing Physician Notes Patient seen and examined separately from BERNABE Mirza. Had numerous discussions with nephrology and hospitalist team. Patient will likely progress towards needing hemodialysis due to acidosis related to sepsis and elevated BUN. Fortunately her volume status appears reasonable and she is able to make urine. She has a fistula, but this is unlikely not ready for use. She may need an HD catheter. She is stable at this time and will defer hemodialysis for today. Continue D5W with bicarbonate infusion for metabolic acidosis. She is requiring low doses of Levophed. History of Present Illness Attending Physician: Mateusz Carrizales MD History of Present Illness Patient is a 55-year-old female with a significant past medical history of end- stage renal disease, chronic pain, diabetes, hypertension, and ongoing issues with sciatica who presented to the emergency department with increasing pain to the RIGHT buttock. On evaluation in the emergency department, the patient had a pelvic CT scan performed which demonstrated large gluteal abscess with gas- forming organism. Patient was treated with Rocephin, daptomycin, and Zosyn. She was taken emergently to the operative suite for I&D of the gluteal abscess with debridement. Patient required low-dose Levophed throughout procedure. Central line and arterial lines placed in the operating room. Patient remained intubated status post intervention. Upon my evaluation in the ICU, the patient is alert on the ventilator and able to answer yes/no questions. She complains of some mild discomfort at the endotracheal tube site. Otherwise, she is unable to contribute to history of present illness. Allergies Allergy/AdvReac Type Severity Reaction Status Date / Time Iodinated Contrast Media AdvReac Severe Patient Verified 04/04/21 21:17 has kidney failure omeprazole AdvReac Severe Increased Verified 04/04/21 21:17 her acid reflux Home Medications Medication Instructions Recorded Confirmed Type cholecalciferol (vitamin D3) 125 125 mcg PO QAM 01/11/20 04/04/21 History mcg (5,000 unit) capsule furosemide 40 mg tablet (Lasix) 60 mg PO BID tab 01/11/20 04/04/21 History gabapentin 300 mg capsule 300 mg PO TID 01/11/20 04/04/21 History losartan 25 mg tablet 25 mg PO QAM 01/11/20 04/04/21 History amlodipine 10 mg tablet 10 mg PO QAM 03/15/21 04/04/21 History doxycycline hyclate 100 mg capsule 100 mg PO QAM 03/15/21 04/04/21 History glucagon 1 mg solution for 0 mg IM UD 03/15/21 04/04/21 History injection (Glucagon Emergency Kit) hydromorphone 4 mg tablet 4 mg PO Q6H PRN 03/15/21 04/04/21 History insulin NPH isoph U-100 human 100 35 unit SUBCUT BID 03/15/21 04/04/21 History unit/mL (3 mL) subcutaneous pen (Humulin N NPH U-100 Insulin KwikPen) insulin aspart U-100 100 unit/mL 1 sliding scale dose SUBCUT 03/15/21 04/04/21 History subcutaneous solution (Novolog USEASDIRECTD U-100 Insulin aspart) labetalol 100 mg tablet 100 mg PO BID 03/15/21 04/04/21 History levothyroxine 125 mcg tablet 125 mcg PO DAILYBB 03/15/21 04/04/21 History methadone 5 mg tablet 5 mg PO BID 03/15/21 04/04/21 History Patient History Medical History Acid reflux Amputation of right great toe Anemia Diabetes Diabetic retinopathy ESRD (end stage renal disease) not on dialysis H/O vocal cord paralysis Right side Hypertension MRSA bacteremia 2017; unclear if vertebral or R diabetic foot wound source 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 Brother No problems noted. Sister Dialysis patient Kidney disease Daughter No problems noted. Daughter Diabetes Social History Smoking Status: Never smoker Second Hand Exposure: No; Hx Alcohol Use: No Hx Substance Use: No Preferred Language: Korean Communication Ability: Effective Visual Impairment: No Limitations Hearing Ability: Normal Turkey Pinner Required: No Beliefs That Will Affect Care: None marital status: Current Living Situation: Spouse current occupational status: disabled Feels Safe at Home: Yes caffeine: No during the past year weight has: remained stable Assistive Devices: Oxygen - Continuous Review of Systems Review of Systems: Unobtainable due to endotracheal tube Physical Exam Physical Exam: VITAL SIGNS - Vital signs and nursing notes were reviewed. GENERAL - 55-year-old female appearing her stated age who is in no acute distress. Intubated and sedated. SKIN - Large RIGHT gluteal incision site packed, dressed - clean, dry, and intact. HEAD - NC/AT. EYES - PERRL with EOMI bilaterally. Sclera anicteric. EARS - No deformities of external structures noted on gross examination bilaterally. NOSE - Midline and without cyanosis. No epistaxis or purulent drainage noted. MOUTH/OROPHARYNX - Without perioral cyanosis. ET Tube in place. NECK - Neck with FROM. Supple to palpation. LUNGS - Chest wall symmetric without accessory muscle use, intercostals retractions, or central cyanosis. Normal vesicular breath sounds CTA B/L. No wheezes, rales, or rhonchi appreciated. CARDIAC - RRR with S1/S2. No murmur, rubs, or gallops appreciated. ABDOMEN - Abdominal contour obese without pulsations or visible masses. BS normoactive all four quadrants. No tenderness, palpable masses, hepatosplenomegaly, or ascites noted. EXTREMITIES - Palpable fistula to the LUE. No clubbing or peripheral cyanosis. No pretibial edema present. +3/5 radial and dorsalis pedis pulses palpated throughout. NEUROLOGIC - Cranial nerves II through XII grossly intact. Results & Data Results & Data ([facility]) Vital Signs (Past 12 Hours) Vital Signs Temp Pulse Pulse Resp BP BP BP 04/05/21 03:15 36.1 C L 87 20 141/74 H 157/50 H 04/05/21 03:05 88 19 133/72 161/68 H 04/05/21 02:55 88 90 22 93/57 L 154/54 H 04/05/21 02:46 36.1 C L 75 18 95/43 L 04/05/21 00:00 93 H 24 04/04/21 23:31 04/04/21 23:30 94 H 19 101/31 L 04/04/21 23:16 37.2 C 94 H 15 106/47 L 04/04/21 23:00 97 H 22 106/47 L 04/04/21 22:59 97 H 30 H 109/86 04/04/21 22:32 96 H 28 H 108/51 L 04/04/21 22:00 98 H 21 04/04/21 21:30 92 H 15 04/04/21 21:00 92 H 16 04/04/21 20:49 93 H 29 H 04/04/21 20:41 93 H 20 93/51 L Pulse Ox 04/05/21 03:15 94 04/05/21 03:05 93 04/05/21 02:55 99 04/05/21 02:46 95 04/05/21 00:00 96 04/04/21 23:31 88 L 04/04/21 23:30 97 04/04/21 23:16 93 04/04/21 23:00 91 04/04/21 22:59 93 04/04/21 22:32 94 04/04/21 22:00 04/04/21 21:30 90 04/04/21 21:00 04/04/21 20:49 67 L 04/04/21 20:41 Coding Level of Care Code Critical Care 1st 30-74 mins Diagnoses Abscess, gluteal, right L02.31 Gas gangrene A48.0 Chronic narcotic dependence F11.20 Time Spent (min) 45
[2021-04-05] MEDS ORDERED: NORMOSOL-R 1,000 ML IV SCH (04:00)
[2021-04-05] MEDS: propofoL 1,000 MG/100 ML VIAL IV SCH ×4 (04:13→23:08)
[2021-04-05] MEDS: fentaNYL DRIP 1,250 MCG/250 ML BAG IV SCH ×2 (04:17→16:17)
[2021-04-05] MEDS: NOREPINEPHRINE/D5W 8 MG/508 ML BAG IV SCH ×2 (04:21→20:42)
[2021-04-05] MEDS: CLINDAMYCIN 600 MG in DEXTROSE 5% 50 ML IV SCH ×3 (04:22→20:41)
[2021-04-05] MEDS ORDERED: PIPERACILLIN/TAZOBACTAM 4.5 GM in DEXTROSE 5% 100 ML IV SCH (05:00)
[2021-04-05 05:31] LABS: Basophils # (auto) 0.01 K/uL (0-0.2); Basophils % (auto) 0.1 %; Eosinophils # (auto) 0.04 K/uL (0-0.5); Eosinophils % (auto) 0.2 %; Hematocrit (blood only) 22.8 % (37-47); Hemoglobin 7.4 g/dL (12.0-16.0); Immature Granulocytes # (auto) 0.25 K/uL (0.00-0.02); Immature Granulocytes % (auto) 1.3 %; Lymphocytes # (auto) 1.24 K/uL (1.2-3.4); Lymphocytes % (auto) 6.5 %; Mean Corpuscular Hemoglobin 31.1 pg (25-34); Mean Corpuscular Hgb Conc 32.5 g/dL (32-36); Mean Corpuscular Volume 95.8 fL (80-100); Mean Platelet Volume 10.2 fL (7.4-10.4); Monocytes # (auto) 1.11 K/uL (0.11-0.59); Monocytes % (auto) 5.8 %; Neutrophils # (auto) 16.52 K/uL (1.4-6.5); Neutrophils % (auto) 86.1 %; Platelet Count 220 K/uL (130-400); RDW Coefficient of Variation 13.2 % (11.5-14.5); RDW Standard Deviation 46.4 fL (36.4-46.3); Red Blood Count 2.38 M/uL (4.2-5.4); White Blood Count 19.17 K/uL (4.8-10.8)
[2021-04-05] MEDS: PIPERACILLIN/TAZOBACTAM 4.5 GM in DEXTROSE 5% 100 ML IV SCH ×2 (05:49→17:33)
[2021-04-05 06:21] LABS: BUN Creatinine Ratio 16.5 (10-20); Calcium 9.1 mg/dl (8.5-10.1); Creatinine Clr Calc Pharmacy 9.3 ml/min; Est GFR (African American) 5.5 ml/min; Est GFR (Non-African American) 4.7 ml/min; Magnesium 2.2 mg/dl (1.8-2.4); Phosphorus 7.8 mg/dl (2.5-4.9); Potassium 4.4 mmol/L (3.5-5.1)
[2021-04-05] MEDS ORDERED: GLUCOSE 40% GEL 15 GM TUBE PO PRN (06:30)
[2021-04-05] MEDS ORDERED: DEXTROSE 50% 50 ML SYRINGE IV PRN (06:30)
[2021-04-05] MEDS ORDERED: GLUCAGON FOR INJ 1 MG VIAL IM PRN (06:30)
[2021-04-05] MEDS ORDERED: GLUCOSE 10 TABS/TUBE PO PRN (06:30)
[2021-04-05] MEDS ORDERED: CARBOHYDRATES FOR HYPOGLYCEMIA PO PRN (06:30)
[2021-04-05 06:43] LABS: Echinocytes 1+; Polychromasia 1+
[2021-04-05] MEDS: INSULIN ASPART 100 UNITS/ML 3 ML PEN SC SCH ×4 (07:10→23:14)
--- NOTE | 2021-04-05 07:29 | History and Physical Report ---
DATE OF ADMISSION: 04/05/2021. CHIEF COMPLAINT: Gluteal abscess and sepsis. HISTORY OF PRESENT ILLNESS: This is a 55-year-old female with past medical history significant for type 2 diabetes, hypertension, chronic kidney disease stage V, diabetic polyneuropathy, hyperlipidemia, diabetic retinopathy, hyperparathyroidism, primary hypertension, obesity, nephrotic syndrome, anemia of chronic kidney disease, neuroendocrine cancer, history of partial ray amputation of the right great toe, history of metastatic adenocarcinoma. The patient presents with right gluteal abscess. It looks like the patient was having pain for some time. They thought it could be sciatica pain and she noticed some pimple on the right gluteus on Wednesday. It looks like she fell on Wednesday and subsequently developed a large red area surrounding the pimple and she came here as it was not getting better and CT scan showed subcutaneous emphysema in the right gluteal tissues. Surgery saw the patient and taken emergently to the OR and debrided necrotizing abscess. She is on antibiotics and intubated and on pressors and it was planned to take her to OR again on Wednesday, so surgery wanted to keep her intubated until the next debridement. 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 Could not get much history from the patient as she is currently intubated and sedated, currently afebrile. ALLERGIES: IODINATED DIAGNOSTIC AGENT, OMEPRAZOLE. PAST MEDICAL HISTORY: As mentioned above. 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 MEDICATIONS: The patient is on amlodipine 10 mg p.o. daily, vitamin D 125 mcg p.o. daily, doxycycline 100 mg p.m., Lasix 60 mg p.o. b.i.d., gabapentin 300 mg p.o. t.i.d., hydromorphone 4 mg p.o. q. 6 hours p.r.n., NovoLog scale as directed, insulin NPH 35 units b.i.d., labetalol 100 mg p.o. b.i.d., levothyroxine 125 mcg p.o. daily, losartan 25 mg p.o. a.m., methadone 5 mg p.o. b.i.d. FAMILY HISTORY: Significant for father had diabetes, hypertension; mother has diabetes; paternal grandfather had heart disorder. SOCIAL HISTORY: , no smoking, alcohol rare, no drug use. REVIEW OF SYSTEMS: Currently is intubated and sedated, currently could not get any review of systems. PHYSICAL EXAMINATION: GENERAL: The patient is obese, currently not in acute distress. VITAL SIGNS: Temperature 36.7, pulse 85, respiratory rate 21, blood pressure 134/66, oxygen 96% on mechanical ventilator, on 40% FiO2. HEENT: Head atraumatic. NECK: No JVD. No neck masses seen. CARDIOVASCULAR: S1 and S2 heard. Regular rate and rhythm. No murmur, no gallop. RESPIRATORY SYSTEM: Normal AP diameter. No accessory muscle use. No wheezing, no crackles. ABDOMEN: Soft, bowel sounds sluggish, nontender, no distention. CENTRAL NERVOUS SYSTEM: Intubated and sedated, opens eyes on calling. EXTREMITIES: No edema, no erythema seen. LABORATORY DATA: WBC 16.2, hemoglobin 7.6, hematocrit 23.7, platelets 204. PH of 7.25, pCO2 of 36, pO2 of 80, bicarbonate 16, oxygen 94%. Sodium 131, potassium 4.6, chloride 97, CO2 of 19, BUN 146, creatinine 9.15. Serum glucose 123. Point of care lactate 1.1, calcium 9.9, ionized calcium 1.29, total bilirubin 0.7, AST 140, ALT 143, alkaline phosphatase 65. SARS-CoV-2 PCR negative. IMAGING DATA: Pelvic CT, right gluteal cellulitis with gas-forming organisms. CT of the head, no acute findings seen. Chest x-ray, no acute findings ASSESSMENT AND PLAN: This is a 55-year-old who presents with right gluteal abscess. 1. Right gluteal abscess, gas forming, necrotizing abscess,Sepsis . status post I and D. Plan for repeat I and D on Wednesday. Currently,s/p intubation. Vent management as per critical care, fluids as per critical care. On antibiotics daptomycin, Zosyn, and clindamycin. Will follow the cultures. Follow the hemodynamics. 2. Diabetes: Will be placed on insulin sliding scale. Will follow the blood sugars. 3. Hypertension: Currently requiring pressors. Holding the labetalol, Losartan, and amlodipine. 4. Chronic pain: On methadone and hydromorphone prn, which we will be holding as the patient is intubated and sedated. 5. Chronic kidney disease stage V: Lasix on hold. Potassium is okay, but creatinine is 9. On IV fluids. Will follow the repeat labs in the a.m. Consult nephrology. 6. History of neuroendocrine tumor involving the cervical spine. It looks like she has low-grade disease Could be well-differentiated neuroendocrine tumor or paraganglioma as per heme/onco. She received radiation therapy to the neck area. Follow up with hem/onc. 7. Deep venous thrombosis prophylaxis: Currently on sequential compression devices. DISPOSITION: Closely monitor in the ICU. Level 1 full code. Job ID: [id number] [facility]
--- NOTE | 2021-04-05 07:34 | Operative Report ---
Post Operative Report Pre & Post Diagnosis Operation Date: 04/04/21 23:30 Pre-Op Diagnosis: Right Gluteal Abscess Post-Op Diagnosis: Right Gluteal Abscess I identified the patient and participated in the time-out.: Yes Procedure Operation Date: 04/04/21 23:30 Actual Procedures p Incision and Drainage of Right Gluteal Abscess(Right) - Mateusz Carrizales MD Surgeon Mateusz Carrizales MD Clinical Nursing Professor none Estimated Blood Loss 20 Findings Consistent with Post-Op Diagnosis Significant amount of purulence and necrotic tissue; necrotic tissue was excised sharply; this extended up towards the rectum and laterally into the gluteal muscle and soft tissues; final measurements of wound 14 cm x 4 cm x 10 cm deep Specimens Cultures anaerobic and aerobic Anesthesia Type General Complications No immediate complications Indications Necrotizing infection in the gluteal space on the right Description of Procedure Patient was taken the operating room, placed supine. A timeout was performed, perioperative antibiotics had been administered, SCD boots were placed. After adequate anesthesia and allergies was obtained, an A-line and central line were placed. The patient was placed prone on the operative table. Incision was made overlying the area of induration and fluctuance. This was carried down into a cavity upon which gas and a significant amount of frankly necrotic tissue was identified. The incision was extended cephalad and laterally following the arc of the cavity. All frankly necrotic tissue was excised sharply with scalpel or scissor dissection. This was excised back to h ealthy bleeding tissue. The cavity was then pulse irrigated with 2 L of fluid. Hemostasis was checked and attended to and was excellent. There is no frankly necrotic tissue at the end of the dissection. The wound was packed with wet-to-dry large Kerlix. Dressings were applied. The decision was made to keep her intubated and take her to the intensive care unit. She will require a recheck of the cavity in the operating room in 24 to 36 hours. She was taken to the intensive care unit in stable condition. I attest to the content of the Intraoperative Record and any orders documented therein. Any exceptions are noted below.
--- NOTE | 2021-04-05 08:09 | XRay Report ---
XR chest 1V portable HISTORY: R IJ central line, ETT placement. COMPARISON: Chest 08/16/2017. FINDINGS: There is a right internal jugular central venous catheter which terminates within the right atrium. Endotracheal tube terminates 3.4 cm from the virgie. Nasogastric tube terminates in the stom ach. There are low lung volumes. No pneumothorax. No pleural effusions. The cardiac silhouette is mil dly enlarged. A few linear densities within the left mid to lower lung zone are noted. This favors [place] bsegmental atelectasis. IMPRESSION: 1. Lines and tubes as above with the right jugular central venous catheter terminating in the right a trium. 2. There are low lung volumes. Left mid to lower lung zone linear densities are nonspecific but favor subsegmental atelectasis. ACT 112: Negative or not required by law. Electronically signed by: Robson Nj M.D. 04/05/2021 8:08 AM
[2021-04-05] MEDS ORDERED: LACTATED RINGER'S 500 ML IV ONE (09:03)
--- NOTE | 2021-04-05 09:21 | Surgery Progress Note ---
Date of Service April 05, 2021 Assessment & Plan (1) Acute renal failure: (2) Abscess, gluteal, right: (3) Gas gangrene: (4) Acute dehydration: Plan: Postop day 1 status post debridement of gluteal necrotizing infection/abscess. She continues on the ventilator and on norepinephrine for blood pressure support. She is receiving 1 L of fluid currently. With her infection and renal failure, there is discussion of possible need for dialysis. Dialysis services are not available at our hospital this weekend. If she requires dialysis, she will need to be transferred to a tertiary care facility. Otherwise, I will plan to reexplore the gluteal wound in the operating room tomorrow. Ultimately we will hope to place a wound VAC. We will continue to monitor. I have discussed the findings of the operating room and the plan with her by phone. All his questions were answered. He is in agreement with the plan currently. Admission and Anticipated Discharge Date Admission Date: April 05, 2021 Subjective Postop day 0 status post incision and wide debridement of gluteal necrotizing infection. Multiple severe comorbidities including chronic kidney disease stage III/IV, diabetes mellitus, prior neuroendocrine tumor of the cervical spine. Still intubated following surgery. Requiring nor epi for blood pressure support . Mean arterial blood pressure target of 60. Receiving fluid at this time. Creatinine 8.6. Physical Exam Constitutional: + mechanically ventilated Neck: trachea midline, no thyromegaly Gastrointestinal (Abdomen): Inspection/Auscultation: abdomen not distended Percussion/Palpation: abdomen soft; abdomen nontender and abdomen not rigid Musculoskeletal: Gluteal dressing clean and dry Skin: no rashes, warm and dry Results & Data ([facility]) Vital Signs (Past 12 Hours) Vital Signs Temp Pulse Pulse Resp BP BP BP 04/05/21 07:53 86 20 04/05/21 06:55 36.8 C 86 17 104/50 L 04/05/21 06:50 36.7 C 85 17 04/05/21 06:45 36.6 C 85 18 04/05/21 06:40 36.4 C L 87 17 04/05/21 06:35 86 23 04/05/21 06:30 85 23 04/05/21 06:25 86 17 04/05/21 06:20 86 19 04/05/21 06:15 86 17 04/05/21 06:10 87 19 04/05/21 06:05 86 16 04/05/21 06:00 85 21 04/05/21 05:55 86 18 04/05/21 05:50 85 17 04/05/21 05:45 85 21 04/05/21 05:40 86 21 04/05/21 05:35 85 17 04/05/21 05:30 86 22 04/05/21 05:25 86 17 04/05/21 05:20 86 17 04/05/21 05:15 85 19 04/05/21 05:10 84 18 04/05/21 05:05 84 19 04/05/21 05:00 85 16 04/05/21 04:55 84 14 04/05/21 04:50 85 17 04/05/21 04:45 84 17 04/05/21 04:40 83 15 04/05/21 04:35 84 17 04/05/21 04:30 84 19 04/05/21 04:25 83 17 04/05/21 04:20 84 17 04/05/21 04:15 86 18 04/05/21 04:12 85 19 04/05/21 04:10 86 16 04/05/21 04:05 85 17 04/05/21 04:00 85 21 04/05/21 03:53 36.7 C 85 21 134/66 133/47 L 04/05/21 03:50 89 17 04/05/21 03:45 88 17 04/05/21 03:38 88 23 04/05/21 03:15 36.1 C L 87 20 141/74 H 157/50 H 04/05/21 03:05 88 19 133/72 161/68 H 04/05/21 02:55 88 90 22 93/57 L 154/54 H 04/05/21 02:46 36.1 C L 75 18 95/43 L 04/05/21 00:00 93 H 24 04/04/21 23:31 04/04/21 23:30 94 H 19 101/31 L 04/04/21 23:16 37.2 C 94 H 15 106/47 L 04/04/21 23:00 97 H 22 106/47 L 04/04/21 22:59 97 H 30 H 109/86 04/04/21 22:32 96 H 28 H 108/51 L 04/04/21 22:00 98 H 21 04/04/21 21:30 92 H 15 Pulse Ox Pulse Ox 04/05/21 07:53 97 04/05/21 06:55 04/05/21 06:50 98 04/05/21 06:45 98 04/05/21 06:40 98 04/05/21 06:35 93 04/05/21 06:30 97 04/05/21 06:25 97 04/05/21 06:20 97 04/05/21 06:15 97 04/05/21 06:10 96 04/05/21 06:05 96 04/05/21 06:00 96 04/05/21 05:55 96 04/05/21 05:50 96 04/05/21 05:45 96 04/05/21 05:40 97 04/05/21 05:35 96 04/05/21 05:30 96 04/05/21 05:25 97 04/05/21 05:20 97 04/05/21 05:15 97 04/05/21 05:10 96 04/05/21 05:05 87 L 04/05/21 05:00 97 04/05/21 04:55 97 04/05/21 04:50 97 04/05/21 04:45 98 04/05/21 04:40 97 04/05/21 04:35 97 04/05/21 04:30 97 04/05/21 04:25 97 04/05/21 04:20 97 04/05/21 04:15 97 04/05/21 04:12 94 04/05/21 04:10 96 04/05/21 04:05 04/05/21 04:00 96 96 04/05/21 03:53 96 04/05/21 03:50 94 04/05/21 03:45 96 04/05/21 03:38 96 04/05/21 03:15 94 04/05/21 03:05 93 04/05/21 02:55 99 04/05/21 02:46 95 04/05/21 00:00 96 04/04/21 23:31 88 L 04/04/21 23:30 97 04/04/21 23:16 93 04/04/21 23:00 91 04/04/21 22:59 93 04/04/21 22:32 94 04/04/21 22:00 04/04/21 21:30 90 Laboratory Results 04/05/21 04/05/21 04/05/21 Range/Units 07:02 05:05 05:05 WBC 19.17 H (4.8-10.8) K/uL RBC 2.38 L (4.2-5.4) M/uL Hgb 7.4 L (12.0-16.0) g/dL POC Hgb (12.0-16.0) g/dl Hct 22.8 L (37-47) % POC Hct (37-47) % MCV 95.8 (80-100) fL MCH 31.1 (25-34) pg MCHC 32.5 (32-36) g/dL RDW Std Deviation 46.4 H (36.4-46.3) fL RDW Coeff of Padmini 13.2 (11.5-14.5) % Plt Count 220 (130-400) K/uL MPV 10.2 (7.4-10.4) fL Immature Gran % (Auto) 1.3 % Neut % (Auto) 86.1 % Lymph % (Auto) 6.5 % [place] % (Auto) 5.8 % Eos % (Auto) 0.2 % Baso % (Auto) 0.1 % Neut # (Auto) 16.52 H (1.4-6.5) K/uL Lymph # (Auto) 1.24 (1.2-3.4) K/uL [place] # (Auto) 1.11 H (0.11-0.59) K/uL Eos # (Auto) 0.04 (0-0.5) K/uL Baso # (Auto) 0.01 (0-0.2) K/uL Immature Gran # (Auto) 0.25 H (0.00-0.02) K/uL Polychromasia 1+ Echinocytes 1+ Sample Site POC pH (7.35-7.45) POC pCO2 (35-46) mmHg POC pO2 (80-95) mmHg POC HCO3 (19-24) bryson/L POC Base Excess (-9-1.8) bryson/L POC ABG O2 Sat (90-95) % Raz Test O2 Delivery Device POC O2 Rate Minute Ventilation POC FiO2 % Tidal Volume PEEP POC Sodium (135-144) mmol/L Sodium 130 L (136-145) mmol/L POC Potassium (3.3-5.0) mmol/L Potassium 4.4 (3.5-5.1) mmol/L POC Chloride (101-112) mmol/L Chloride 99 (98-107) mmol/L Carbon Dioxide 14 L (21-32) mmol/L POC Total CO2 (24-31) mmol/L Anion Gap 17.0 H (3-11) POC Anion Gap (16-25) mmol/L POC BUN (7-18) mg/dl BUN 142 H (7-18) mg/dl Creatinine 8.61 H* D (0.6-1.2) mg/dl POC Creatinine (0.6-1.3) mg/dl Est Cr Clr Drug Dosing 9.3 ml/min Est GFR ( Amer) 5.5 ml/min Est GFR (Non-Af Amer) 4.7 ml/min BUN/Creatinine Ratio 16.5 (10-20) Glucose 185 H (70-99) mg/dl POC Glucose 214 H (70-99) mg/dl POC Glucose (other) (70-99) mg/dl POC Lactic Acid Junaid (0.90-1.70) mmol/L Lactate (0.4-2.0) mmol/L Calcium 9.1 (8.5-10.1) mg/dl POC Ioniz Calcium Serena (1.12-1.32) mmol/l Phosphorus 7.8 H (2.5-4.9) mg/dl Magnesium 2.2 (1.8-2.4) mg/dl Total Bilirubin (0.2-1) mg/dl AST (15-37) U/L ALT (12-78) U/L Alkaline Phosphatase (45-117) U/L Total Creatine Kinase 1622 H (26-192) U/L Total Protein (6.4-8.2) gm/dl Albumin (3.4-5.0) gm/dl Globulin (2.5-4.0) gm/dl Albumin/Globulin Ratio (0.9-2) Nasal Screen MRSA (PCR) (Negative) COVID-19 Eval Order SARS-CoV-2 (PCR) (Negative) 04/05/21 04/05/21 04/05/21 Range/Units 04:00 03:41 03:02 WBC (4.8-10.8) K/uL RBC (4.2-5.4) M/uL Hgb (12.0-16.0) g/dL POC Hgb (12.0-16.0) g/dl Hct (37-47) % POC Hct (37-47) % MCV (80-100) fL MCH (25-34) pg MCHC (32-36) g/dL RDW Std Deviation (36.4-46.3) fL RDW Coeff of Padmini (11.5-14.5) % Plt Count (130-400) K/uL MPV (7.4-10.4) fL Immature Gran % (Auto) % Neut % (Auto) % Lymph % (Auto) % [place] % (Auto) % Eos % (Auto) % Baso % (Auto) % Neut # (Auto) (1.4-6.5) K/uL Lymph # (Auto) (1.2-3.4) K/uL [place] # (Auto) (0.11-0.59) K/uL Eos # (Auto) (0-0.5) K/uL Baso # (Auto) (0-0.2) K/uL Immature Gran # (Auto) (0.00-0.02) K/uL Polychromasia Echinocytes Sample Site Art Line POC pH 7.25 L (7.35-7.45) POC pCO2 36 (35-46) mmHg POC pO2 80 (80-95) mmHg POC HCO3 16 L (19-24) bryson/L POC Base Excess -11.0 L (-9-1.8) bryson/L POC ABG O2 Sat 94.0 (90-95) % Raz Test NA O2 Delivery Device Ventilator POC O2 Rate 16 Minute Ventilation 10.0 POC FiO2 40 % Tidal Volume 400 PEEP 5 POC Sodium (135-144) mmol/L Sodium (136-145) mmol/L POC Potassium (3.3-5.0) mmol/L Potassium (3.5-5.1) mmol/L POC Chloride (101-112) mmol/L Chloride (98-107) mmol/L Carbon Dioxide (21-32) mmol/L POC Total CO2 17 L (24-31) mmol/L Anion Gap (3-11) POC Anion Gap (16-25) mmol/L POC BUN (7-18) mg/dl BUN (7-18) mg/dl Creatinine (0.6-1.2) mg/dl POC Creatinine (0.6-1.3) mg/dl Est Cr Clr Drug Dosing ml/min Est GFR ( Amer) ml/min Est GFR (Non-Af Amer) ml/min BUN/Creatinine Ratio (10-20) Glucose (70-99) mg/dl POC Glucose 129 H (70-99) mg/dl POC Glucose (other) (70-99) mg/dl POC Lactic Acid Junaid (0.90-1.70) mmol/L Lactate (0.4-2.0) mmol/L Calcium (8.5-10.1) mg/dl POC Ioniz Calcium Serena (1.12-1.32) mmol/l Phosphorus (2.5-4.9) mg/dl Magnesium (1.8-2.4) mg/dl Total Bilirubin (0.2-1) mg/dl AST (15-37) U/L ALT (12-78) U/L Alkaline Phosphatase (45-117) U/L Total Creatine Kinase (26-192) U/L Total Protein (6.4-8.2) gm/dl Albumin (3.4-5.0) gm/dl Globulin (2.5-4.0) gm/dl Albumin/Globulin Ratio (0.9-2) Nasal Screen MRSA (PCR) Negative (Negative) COVID-19 Eval Order SARS-CoV-2 (PCR) (Negative) 04/04/21 04/04/21 04/04/21 Range/Units 23:01 22:56 22:54 WBC (4.8-10.8) K/uL RBC (4.2-5.4) M/uL Hgb (12.0-16.0) g/dL POC Hgb 7.5 L (12.0-16.0) g/dl Hct (37-47) % POC Hct 22 L (37-47) % MCV (80-100) fL MCH (25-34) pg MCHC (32-36) g/dL RDW Std Deviation (36.4-46.3) fL RDW Coeff of Padmini (11.5-14.5) % Plt Count (130-400) K/uL MPV (7.4-10.4) fL Immature Gran % (Auto) % Neut % (Auto) % Lymph % (Auto) % [place] % (Auto) % Eos % (Auto) % Baso % (Auto) % Neut # (Auto) (1.4-6.5) K/uL Lymph # (Auto) (1.2-3.4) K/uL [place] # (Auto) (0.11-0.59) K/uL Eos # (Auto) (0-0.5) K/uL Baso # (Auto) (0-0.2) K/uL Immature Gran # (Auto) (0.00-0.02) K/uL Polychromasia Echinocytes Sample Site POC pH (7.35-7.45) POC pCO2 (35-46) mmHg POC pO2 (80-95) mmHg POC HCO3 (19-24) bryson/L POC Base Excess (-9-1.8) bryson/L POC ABG O2 Sat (90-95) % Raz Test O2 Delivery Device POC O2 Rate Minute Ventilation POC FiO2 % Tidal Volume PEEP POC Sodium 130 L (135-144) mmol/L Sodium 131 L (136-145) mmol/L POC Potassium 4.7 (3.3-5.0) mmol/L Potassium 4.6 (3.5-5.1) mmol/L POC Chloride 95 L (101-112) mmol/L Chloride 97 L (98-107) mmol/L Carbon Dioxide 19 L (21-32) mmol/L POC Total CO2 17 L (24-31) mmol/L Anion Gap 15.0 H (3-11) POC Anion Gap 24.0 (16-25) mmol/L POC BUN > 140 H* (7-18) mg/dl BUN 146 H (7-18) mg/dl Creatinine 9.15 H* (0.6-1.2) mg/dl POC Creatinine 9.8 H* (0.6-1.3) mg/dl Est Cr Clr Drug Dosing 8.8 ml/min Est GFR ( Amer) 5.1 ml/min Est GFR (Non-Af Amer) 4.4 ml/min BUN/Creatinine Ratio 16.1 (10-20) Glucose 123 H (70-99) mg/dl POC Glucose (70-99) mg/dl POC Glucose (other) 119 H (70-99) mg/dl POC Lactic Acid Junaid 0.92 (0.90-1.70) mmol/L Lactate (0.4-2.0) mmol/L Calcium 9.9 (8.5-10.1) mg/dl POC Ioniz Calcium Serena 1.29 (1.12-1.32) mmol/l Phosphorus (2.5-4.9) mg/dl Magnesium (1.8-2.4) mg/dl Total Bilirubin 0.7 (0.2-1) mg/dl AST 140 H (15-37) U/L ALT 143 H (12-78) U/L Alkaline Phosphatase 65 (45-117) U/L Total Creatine Kinase (26-192) U/L Total Protein 6.6 (6.4-8.2) gm/dl Albumin 2.2 L (3.4-5.0) gm/dl Globulin 4.4 H (2.5-4.0) gm/dl Albumin/Globulin Ratio 0.5 L (0.9-2) Nasal Screen MRSA (PCR) (Negative) COVID-19 Eval Order SARS-CoV-2 (PCR) (Negative) 04/04/21 04/04/21 04/04/21 Range/Units 22:54 22:54 21:28 WBC 16.22 H (4.8-10.8) K/uL RBC 2.51 L (4.2-5.4) M/uL Hgb 7.6 L (12.0-16.0) g/dL POC Hgb (12.0-16.0) g/dl Hct 23.7 L (37-47) % POC Hct (37-47) % MCV 94.4 (80-100) fL MCH 30.3 (25-34) pg MCHC 32.1 (32-36) g/dL RDW Std Deviation 45.9 (36.4-46.3) fL RDW Coeff of Padmini 13.0 (11.5-14.5) % Plt Count 204 (130-400) K/uL MPV 10.2 (7.4-10.4) fL Immature Gran % (Auto) 0.7 % Neut % (Auto) 85.6 % Lymph % (Auto) 5.8 % [place] % (Auto) 7.5 % Eos % (Auto) 0.3 % Baso % (Auto) 0.1 % Neut # (Auto) 13.90 H (1.4-6.5) K/uL Lymph # (Auto) 0.94 L (1.2-3.4) K/uL [place] # (Auto) 1.21 H (0.11-0.59) K/uL Eos # (Auto) 0.05 (0-0.5) K/uL Baso # (Auto) 0.01 (0-0.2) K/uL Immature Gran # (Auto) 0.11 H (0.00-0.02) K/uL Polychromasia 1+ Echinocytes Sample Site POC pH (7.35-7.45) POC pCO2 (35-46) mmHg POC pO2 (80-95) mmHg POC HCO3 (19-24) bryson/L POC Base Excess (-9-1.8) bryson/L POC ABG O2 Sat (90-95) % Raz Test O2 Delivery Device POC O2 Rate Minute Ventilation POC FiO2 % Tidal Volume PEEP POC Sodium (135-144) mmol/L Sodium (136-145) mmol/L POC Potassium (3.3-5.0) mmol/L Potassium (3.5-5.1) mmol/L POC Chloride (101-112) mmol/L Chloride (98-107) mmol/L Carbon Dioxide (21-32) mmol/L POC Total CO2 (24-31) mmol/L Anion Gap (3-11) POC Anion Gap (16-25) mmol/L POC BUN (7-18) mg/dl BUN (7-18) mg/dl Creatinine (0.6-1.2) mg/dl POC Creatinine (0.6-1.3) mg/dl Est Cr Clr Drug Dosing ml/min Est GFR ( Amer) ml/min Est GFR (Non-Af Amer) ml/min BUN/Creatinine Ratio (10-20) Glucose (70-99) mg/dl POC Glucose (70-99) mg/dl POC Glucose (other) (70-99) mg/dl POC Lactic Acid Junaid (0.90-1.70) mmol/L Lactate 1.1 (0.4-2.0) mmol/L Calcium (8.5-10.1) mg/dl POC Ioniz Calcium Serena (1.12-1.32) mmol/l Phosphorus (2.5-4.9) mg/dl Magnesium (1.8-2.4) mg/dl Total Bilirubin (0.2-1) mg/dl AST (15-37) U/L ALT (12-78) U/L Alkaline Phosphatase (45-117) U/L Total Creatine Kinase (26-192) U/L Total Protein (6.4-8.2) gm/dl Albumin (3.4-5.0) gm/dl Globulin (2.5-4.0) gm/dl Albumin/Globulin Ratio (0.9-2) Nasal Screen MRSA (PCR) (Negative) COVID-19 Eval Order SARS-CoV-2 (PCR) NEGATIVE (Negative) 04/04/21 Range/Units 21:28 WBC (4.8-10.8) K/uL RBC (4.2-5.4) M/uL Hgb (12.0-16.0) g/dL POC Hgb (12.0-16.0) g/dl Hct (37-47) % POC Hct (37-47) % MCV (80-100) fL MCH (25-34) pg MCHC (32-36) g/dL RDW Std Deviation (36.4-46.3) fL RDW Coeff of Padmini (11.5-14.5) % Plt Count (130-400) K/uL MPV (7.4-10.4) fL Immature Gran % (Auto) % Neut % (Auto) % Lymph % (Auto) % [place] % (Auto) % Eos % (Auto) % Baso % (Auto) % Neut # (Auto) (1.4-6.5) K/uL Lymph # (Auto) (1.2-3.4) K/uL [place] # (Auto) (0.11-0.59) K/uL Eos # (Auto) (0-0.5) K/uL Baso # (Auto) (0-0.2) K/uL Immature Gran # (Auto) (0.00-0.02) K/uL Polychromasia Echinocytes Sample Site POC pH (7.35-7.45) POC pCO2 (35-46) mmHg POC pO2 (80-95) mmHg POC HCO3 (19-24) bryson/L POC Base Excess (-9-1.8) bryson/L POC ABG O2 Sat (90-95) % Raz Test O2 Delivery Device POC O2 Rate Minute Ventilation POC FiO2 % Tidal Volume PEEP POC Sodium (135-144) mmol/L Sodium (136-145) mmol/L POC Potassium (3.3-5.0) mmol/L Potassium (3.5-5.1) mmol/L POC Chloride (101-112) mmol/L Chloride (98-107) mmol/L Carbon Dioxide (21-32) mmol/L POC Total CO2 (24-31) mmol/L Anion Gap (3-11) POC Anion Gap (16-25) mmol/L POC BUN (7-18) mg/dl BUN (7-18) mg/dl Creatinine (0.6-1.2) mg/dl POC Creatinine (0.6-1.3) mg/dl Est Cr Clr Drug Dosing ml/min Est GFR ( Amer) ml/min Est GFR (Non-Af Amer) ml/min BUN/Creatinine Ratio (10-20) Glucose (70-99) mg/dl POC Glucose (70-99) mg/dl POC Glucose (other) (70-99) mg/dl POC Lactic Acid Junaid (0.90-1.70) mmol/L Lactate (0.4-2.0) mmol/L Calcium (8.5-10.1) mg/dl POC Ioniz Calcium Serena (1.12-1.32) mmol/l Phosphorus (2.5-4.9) mg/dl Magnesium (1.8-2.4) mg/dl Total Bilirubin (0.2-1) mg/dl AST (15-37) U/L ALT (12-78) U/L Alkaline Phosphatase (45-117) U/L Total Creatine Kinase (26-192) U/L Total Protein (6.4-8.2) gm/dl Albumin (3.4-5.0) gm/dl Globulin (2.5-4.0) gm/dl Albumin/Globulin Ratio (0.9-2) Nasal Screen MRSA (PCR) (Negative) COVID-19 Eval Order Covid19 at [facility] SARS-CoV-2 (PCR) (Negative) (1) Acute renal failure Acute renal failure type: unspecified Qualified Code(s): N17.9 - Acute kidney failure, unspecified
--- NOTE | 2021-04-05 10:27 | Nephrology Consultation ---
Date of Consultation April 05, 2021 Assessment & Plan (1) Acute renal failure: versus ESRD progression >> baseline creat had been mid-high 3's 2018-Feb 2021; then in march mid 's > mid 5's w/ BUN from 70s > 80s; presented w/ creat 9.2, BUN > 140. chemistries ok except for moderate acidemia has made nearly a liter of urine; pressor dependence increasing; also on aggressive IV fluids. she has an elevated CK which may cont to climb but no evidence todate of florid rhabdomyolysis -change normosol to bicarb gtt at about 1100 > cont at 100 mL hourly; no evidence of fluid OL so far; lactate has normalized -recheck bmp, hgb, CK ordered stat after about 2h on tx -we have very limited resources for doing dialysis at this hospital; for now will continue to observe and to manage medically; will reassess often Care coordinated w/ Drs. Mcnamara and Jluis (2) ESRD (end stage renal disease): has LUE endovascular AVF - ready to use per OP notes but likely very challenging to access w/ critical illness; if we do emergent HD, will need dialy sis catheter (3) Abscess, gluteal, right: s/p emergent I&D 04/05 and OR planned for 04/06 -on dapto, zosyn, clinda -f/u cxs (4) Neuroendocrine tumor: with spinal mets in C spine, L spine, T spine and primary focus R carotid sheath -extra caution w/ spine in maneuvering pt and w/ procedures in/near R neck -may have extremely high pain mgt needs History of Present Illness Reason for Consultation: MARK ANTHONY on CKD Requesting Physician: Dr Orourke Attending Physician: Anjana Mcnamara MD History of Present Illness 55 y/o F w/ 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 She presented w/ worsening R sciatica, N, CHOW. She is currently intubated, on levophed and normosol as well as on daptomycin, zosyn, clindamycin. Other PMH includes Jul 2017 admission [facility] for MRSA bacteremia unclear (per Inf Dzs) if from vertebral OM versus R diabetic foot wound, HTN, Class 1 obesity, significant chronic pain issues from spinal mets managed by palliative care; she has lytic lesions in her C spine, T spine, L spine as below. She has known pancreatic lesion, L renal lesion unrelated to NET; also remote hx of partial thyroidectomy for microcarcinoma. Her NET was treated w/ XRT, no chemo; no evidence recently of further progression. Follows w/ Dr Hannon and with me. She has a L AC endovascular AVF created 09/2020 and cleared for use; in center HD is planned when need arises. She had worsening labs recently w/ creatinine moving from mid to high 3's where it had been plateau'd late 2018 through Feb 2021 to creatinine 4.5 earlier this month and 5.4 on 03/31/21 w/ BUN 90 and calcium 11.2. On arrival here her cre atinine was 9.2, bic 19. Creat this am is 8.6, BUN 142, bicarb 14; ABG on 40% Fi02 as below. Her 02 needs have been stable since OR on 40% Fi02. Pressor dose upped early afternoon to 0.09 mcg levophed. Allergies Allergy/AdvReac Type Severity Reaction Status Date / Time Iodinated Contrast Media AdvReac Severe Patient Verified 04/04/21 21:17 has kidney failure omeprazole AdvReac Severe Increased Verified 04/04/21 21:17 her acid reflux Home Medications Medication Instructions Recorded Confirmed Type cholecalciferol (vitamin D3) 125 125 mcg PO QAM 01/11/20 04/04/21 History mcg (5,000 unit) capsule furosemide 40 mg tablet (Lasix) 60 mg PO BID tab 01/11/20 04/04/21 History gabapentin 300 mg capsule 300 mg PO TID 01/11/20 04/04/21 History losartan 25 mg tablet 25 mg PO QAM 01/11/20 04/04/21 History amlodipine 10 mg tablet 10 mg PO QAM 03/15/21 04/04/21 History doxycycline hyclate 100 mg capsule 100 mg PO QAM 03/15/21 04/04/21 History glucagon 1 mg solution for 0 mg IM UD 03/15/21 04/04/21 History injection (Glucagon Emergency Kit) hydromorphone 4 mg tablet 4 mg PO Q6H PRN 03/15/21 04/04/21 History insulin NPH isoph U-100 human 100 35 unit SUBCUT BID 03/15/21 04/04/21 History unit/mL (3 mL) subcutaneous pen (Humulin N NPH U-100 Insulin KwikPen) insulin aspart U-100 100 unit/mL 1 sliding scale dose SUBCUT 03/15/21 04/04/21 History subcutaneous solution (Novolog USEASDIRECTD U-100 Insulin aspart) labetalol 100 mg tablet 100 mg PO BID 03/15/21 04/04/21 History levothyroxine 125 mcg tablet 125 mcg PO DAILYBB 03/15/21 04/04/21 History methadone 5 mg tablet 5 mg PO BID 03/15/21 04/04/21 History Patient History Medical History Acid reflux Amputation of right great toe Anemia Diabetes Diabetic retinopathy ESRD (end stage renal disease) not on dialysis H/O vocal cord paralysis Right side Hypertension MRSA bacteremia 2017; unclear if vertebral or R diabetic foot wound source 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 Brother No problems noted. Sister Dialysis patient Kidney disease Daughter No problems noted. Daughter Diabetes Social History Smoking Status: Never smoker Second Hand Exposure: No; Hx Alcohol Use: No Hx Substance Use: No Preferred Language: Slovenian Communication Ability: Effective Visual Impairment: No Limitations Hearing Ability: Normal Geotechnical Field Technician Required: No Beliefs That Will Affect Care: None marital status: Current Living Situation: Spouse current occupational status: disabled Feels Safe at Home: Yes caffeine: No during the past year weight has: remained stable Assistive Devices: Oxygen - Continuous Review of Systems Review of Systems: Unobtainable due to endotracheal tube Physical Exam Constitutional: well developed, well nourished, + obese and + mechanically ventilated; no acute distress Eyes: EOM intact bilaterally ENMT: Ears: no external ear abnormality Nose: no external nose abnormality Mouth: + dry oral mucous membranes Neck: no nuchal rigidity Respiratory: normal respiratory effort Auscultation: + diminished lung sounds Cardiovascular: Rate/Rhythm: regular rhythm and + tachycardic Heart Sounds: normal S1, normal S2 and + murmur Extremities: + AV fistula (L AC +bruit; thrill difficult to isolate) Gastrointestinal (Abdomen): Inspection/Auscultation: normal bowel sounds Percussion/Palpation: abdomen soft; abdomen nontender Musculoskeletal: Extremities: strength 5/5 throughout Skin: no rashes, warm and dry Neurologic: rodriguez, fluent speech, no tremor Genitourinary: woodruff w/ cloudy yellow urine Results & Data ([facility]) Vital Signs (Past 12 Hours) Vital Signs Temp Pulse Pulse Resp BP BP BP 04/05/21 09:00 36.9 C 86 19 146/81 H 04/05/21 08:00 37.0 C 87 18 04/05/21 07:53 86 20 04/05/21 07:00 36.8 C 85 20 04/05/21 06:55 36.8 C 86 17 104/50 L 04/05/21 06:50 36.7 C 85 17 04/05/21 06:45 36.6 C 85 18 04/05/21 06:40 36.4 C L 87 17 04/05/21 06:35 86 23 04/05/21 06:30 85 23 04/05/21 06:25 86 17 04/05/21 06:20 86 19 04/05/21 06:15 86 17 04/05/21 06:10 87 19 04/05/21 06:05 86 16 04/05/21 06:00 85 21 04/05/21 05:55 86 18 04/05/21 05:50 85 17 04/05/21 05:45 85 21 04/05/21 05:40 86 21 04/05/21 05:35 85 17 04/05/21 05:30 86 22 04/05/21 05:25 86 17 04/05/21 05:20 86 17 04/05/21 05:15 85 19 04/05/21 05:10 84 18 04/05/21 05:05 84 19 04/05/21 05:00 85 16 04/05/21 04:55 84 14 04/05/21 04:50 85 17 04/05/21 04:45 84 17 04/05/21 04:40 83 15 04/05/21 04:35 84 17 04/05/21 04:30 84 19 04/05/21 04:25 83 17 04/05/21 04:20 84 17 04/05/21 04:15 86 18 04/05/21 04:12 85 19 04/05/21 04:10 86 16 04/05/21 04:05 85 17 04/05/21 04:00 85 21 04/05/21 03:53 36.7 C 85 21 134/66 133/47 L 04/05/21 03:50 89 17 04/05/21 03:45 88 17 04/05/21 03:38 88 23 04/05/21 03:15 36.1 C L 87 20 141/74 H 157/50 H 04/05/21 03:05 88 19 133/72 161/68 H 04/05/21 02:55 88 90 22 93/57 L 154/54 H 04/05/21 02:46 36.1 C L 75 18 95/43 L 04/05/21 00:00 93 H 24 04/04/21 23:31 04/04/21 23:30 94 H 19 101/31 L 04/04/21 23:16 37.2 C 94 H 15 106/47 L 04/04/21 23:00 97 H 22 106/47 L 04/04/21 22:59 97 H 30 H 109/86 04/04/21 22:32 96 H 28 H 108/51 L Pulse Ox Pulse Ox 04/05/21 09:00 99 04/05/21 08:00 95 04/05/21 07:53 97 04/05/21 07:00 04/05/21 06:55 04/05/21 06:50 98 04/05/21 06:45 98 04/05/21 06:40 98 04/05/21 06:35 93 04/05/21 06:30 97 04/05/21 06:25 97 04/05/21 06:20 97 04/05/21 06:15 97 04/05/21 06:10 96 04/05/21 06:05 96 04/05/21 06:00 96 04/05/21 05:55 96 04/05/21 05:50 96 04/05/21 05:45 96 04/05/21 05:40 97 04/05/21 05:35 96 04/05/21 05:30 96 04/05/21 05:25 97 04/05/21 05:20 97 04/05/21 05:15 97 04/05/21 05:10 96 04/05/21 05:05 87 L 04/05/21 05:00 97 04/05/21 04:55 97 04/05/21 04:50 97 04/05/21 04:45 98 04/05/21 04:40 97 04/05/21 04:35 97 04/05/21 04:30 97 04/05/21 04:25 97 04/05/21 04:20 97 04/05/21 04:15 97 04/05/21 04:12 94 04/05/21 04:10 96 04/05/21 04:05 04/05/21 04:00 96 96 04/05/21 03:53 96 04/05/21 03:50 94 04/05/21 03:45 96 04/05/21 03:38 96 04/05/21 03:15 94 04/05/21 03:05 93 04/05/21 02:55 99 04/05/21 02:46 95 04/05/21 00:00 96 04/04/21 23:31 88 L 04/04/21 23:30 97 04/04/21 23:16 93 04/04/21 23:00 91 04/04/21 22:59 93 04/04/21 22:32 94 Laboratory Results 04/05/21 05:05 04/05/21 05:05 ABG on 40% 7.25/ 36/080/[address] admission Right gluteal cellulitis with gas forming organisms. No evidence of drainable fluid collection. No involvement of the adjacent bowel is seen. cxr 1. Lines and tubes as above with the right jugular central venous catheter terminating in the right atrium. 2. There are low lung volumes. Left mid to lower lung zone linear densities are nonspecific but favor subsegmental atelectasis. head CT admission No acute intracranial hemorrhage, no evidence of acute territorial infarction or other acute intracranial disease process. PET CT November 2020 HEAD / NECK: Similar size of the dotatate-avid lesion in the right carotid sheath. Pituitary and salivary gland uptake is physiologic. No enlarged cervic al lymph nodes. CHEST: No abnormal radiotracer uptake. No suspicious pulmonary nodules. No mediastinal or axillary lymphadenopathy. ABDOMEN/PELVIS: The pancreatic tail mass is stable with no abnormal radiotracer uptake. No significant abdominopelvic lymphadenopathy. Physiologic gastrointestinal, genitourinary, and splenic uptake. MUSCULOSKELETAL / OTHER: Similar dotatate-avid lytic lesions in the posterior elements of C2, C4 vertebral body and posterior elements, and the vertebral bodies of T6, L4, and L5. Similar sclerotic lesion in the vertebral body of T4. No new osseous lesions. ADDITIONAL CT FINDINGS: Lines/Devices: None. Head/Neck: The [place] ocular lenses are surgically absent. Atherosclerosis. Right thyroid lobectomy. Chest: Decreased attenuation of the intracardiac blood pool suggests anemia. Atherosclerosis. Abdomen/Pelvis: Cholecystectomy. Left renal cyst. Colonic diverticulosis. Atherosclerosis. Similar thickening in the right anterior abdominal wall. Musculoskeletal/Other: Degenerative changes of the spine. IMPRESSION 1. Stable primary lesion in the right carotid sheath. 2. Stable lytic and sclerotic osseous metastases. 3. No new metastatic lesions. (1) Acute renal failure Acute renal failure type: unspecified Qualified Code(s): N17.9 - Acute kidney failure, unspecified
[2021-04-05] MEDS ORDERED: STAT IV STA (10:29)
[2021-04-05] MEDS: SODIUM BICARBONATE 8.4% 150 MEQ in DEXTROSE 5% 1,000 ML IV SCH ×2 (10:59→21:33)
[2021-04-05 14:34] LABS: BUN Creatinine Ratio 16.7 (10-20); Calcium 9.1 mg/dl (8.5-10.1); Creatinine Clr Calc Pharmacy 9.5 ml/min; Est GFR (African American) 5.6 ml/min; Est GFR (Non-African American) 4.9 ml/min; Potassium 4.2 mmol/L (3.5-5.1)
[2021-04-05 15:44] LABS: Appearance Urine Cloudy (Clear); Bacteria Urine Automated Negative (Negative); Bilirubin Urine Negative (Negative); Blood Urine 2+ (Negative); Color Urine Yellow; Epithelial Cell Urine Auto 0-5 /lpf (0-5); Glucose Urine UA Negative (Negative); Ketones Urine Negative (Negative); Leukocyte Esterase Urine 3+ (Negative); Nitrite Urine Negative (Negative); Protein Urine Trace (Negative); Urobilinogen Urine Negative (Negative); WBC Urine Automated >30 /hpf (0-5)
[2021-04-05 16:08] LABS: RBC Urine Automated 0-4 /hpf (0-4)
--- NOTE | 2021-04-05 17:20 | Communication Note ---
Date of Service: April 05, 2021 Patient and examined 55-year-old female with past medical history significant for type 2 diabetes, hypertension, chronic kidney disease stage V, diabetic polyneuropathy, hyperlipidemia, diabetic retinopathy, hyperparathyroidism, primary hypertension, obesity, nephrotic syndrome, anemia of chronic kidney disease, neuroendocrine cancer, history of partial ray amputation of the right great toe, history of metastatic adenocarcinoma who presented with right gluteal necrotizing abscess s/p emergent I/D Physical exam notable for female patient intubated and sedated, limited exam of surgical dressing due to position, currently on pressor (levo), woodruff in situ Details in H&P from this AM by Dr Orourke Discussed patient extensively multiple times with Dr Aleman and Dr Bazzi Patient needs HD for MARK ANTHONY on CKD5 with metabolic acidosis. Due to difficulty with HD over the weekend, I discussed with transfer center but there are no readily available ICU bed in [facility]. Community Re[employer]ment Act Officer Dr Aleman working to try to get patient urgent HD today. Will continue antibiotics Vent management and pressors per home specialist Dr Bazzi Surgical management per Dr Carrizales. Agree with other plans as detailed by Dr Orourke in H&P this AM
[2021-04-05] MEDS: ACETAMINOPHEN 1,000 MG/100 ML VIAL IV PRN (17:44)
[2021-04-05 20:46] LABS: BUN Creatinine Ratio 17.1 (10-20); Calcium 9.4 mg/dl (8.5-10.1); Creatinine Clr Calc Pharmacy 10.1 ml/min; Est GFR (African American) 6.1 ml/min; Est GFR (Non-African American) 5.2 ml/min; Potassium 3.8 mmol/L (3.5-5.1)
[2021-04-06] MEDS: ACETAMINOPHEN 1,000 MG/100 ML VIAL IV PRN (01:12)
[2021-04-06] MEDS: CLINDAMYCIN 600 MG in DEXTROSE 5% 50 ML IV SCH (04:18)
[2021-04-06] MEDS: propofoL 1,000 MG/100 ML VIAL IV SCH ×4 (04:38→15:03)
[2021-04-06] MEDS: NOREPINEPHRINE/D5W 8 MG/508 ML BAG IV SCH (05:25)
[2021-04-06 05:33] LABS: iSTAT Art Bld Gas pCO2 Correct 40 mmHg (35-46); iSTAT Art Bld Gas pH Corrected 7.367 (7.35-7.45); iSTAT Arterial Blood Gas HCO3 23 meg/L (19-24); iSTAT Arterial Blood Gas pCO2 38 mmHg (35-46); iSTAT Arterial Blood Gas pH 7.38 (7.35-7.45); iSTAT Arterial Blood Gas pO2 74 mmHg (80-95); iSTAT Arterial Blood Gas pO2 C 79; iSTAT Carbon Dioxide 24 mmol/L (24-31); iSTAT FiO2 30 %; iSTAT Hematocrit 21 % (37-47); iSTAT Hemoglobin 7.1 g/dl (12.0-16.0); iSTAT Potassium 3.8 mmol/L (3.3-5.0); iSTAT Site Art Line; iSTAT Sodium 129 mmol/L (135-144)
[2021-04-06 05:34] LABS: Hematocrit (blood only) 22.7 % (37-47); Hemoglobin 7.2 g/dL (12.0-16.0); Mean Corpuscular Hemoglobin 30.1 pg (25-34); Mean Corpuscular Hgb Conc 31.7 g/dL (32-36); Mean Platelet Volume 9.9 fL (7.4-10.4); Platelet Count 214 K/uL (130-400); RDW Coefficient of Variation 13.1 % (11.5-14.5); RDW Standard Deviation 45.9 fL (36.4-46.3); Red Blood Count 2.39 M/uL (4.2-5.4); White Blood Count 9.14 K/uL (4.8-10.8)
[2021-04-06 05:35] LABS: Basophils # (auto) 0.01 K/uL (0-0.2); Basophils % (auto) 0.1 %; Eosinophils # (auto) 0.23 K/uL (0-0.5); Eosinophils % (auto) 2.5 %; Immature Granulocytes # (auto) 0.14 K/uL (0.00-0.02); Immature Granulocytes % (auto) 1.5 %; Lymphocytes # (auto) 0.93 K/uL (1.2-3.4); Lymphocytes % (auto) 10.2 %; Monocytes # (auto) 0.57 K/uL (0.11-0.59); Monocytes % (auto) 6.2 %; Neutrophils # (auto) 7.26 K/uL (1.4-6.5); Neutrophils % (auto) 79.5 %; RBC Morphology Unremarkable
[2021-04-06 05:46] LABS: BUN Creatinine Ratio 17.1 (10-20); Calcium 8.9 mg/dl (8.5-10.1); Creatinine Clr Calc Pharmacy 10.5 ml/min; Est GFR (African American) 6.4 ml/min; Est GFR (Non-African American) 5.5 ml/min; Phosphorus 7.5 mg/dl (2.5-4.9); Potassium 3.7 mmol/L (3.5-5.1)
[2021-04-06] MEDS: PIPERACILLIN/TAZOBACTAM 4.5 GM in DEXTROSE 5% 100 ML IV SCH ×2 (06:05→17:30)
[2021-04-06] MEDS: INSULIN ASPART 100 UNITS/ML 3 ML PEN SC SCH ×2 (06:09→15:23)
[2021-04-06 06:18] LABS: Beta-Hydroxybutyrate 4.06 mg/dl (0.2-2.81)
[2021-04-06] MEDS: fentaNYL DRIP 1,250 MCG/250 ML BAG IV SCH (07:15)
[2021-04-06] MEDS: SODIUM BICARBONATE 8.4% 150 MEQ in DEXTROSE 5% 1,000 ML IV SCH (08:17)
--- NOTE | 2021-04-06 09:15 | XRay Report ---
XR chest 1V portable CLINICAL HISTORY: f/u TECHNIQUE: Single frontal radiograph of the chest was obtained. Comparison: None available at the time of this dictation. FINDINGS: Lines and tubes are stable. The cardiomediastinal silhouette is normal. Lungs are underinflated. Airs pace opacities are seen in the bilateral lower lungs. No evidence of pleural effusion or pneumothorax . IMPRESSION: Bilateral lower lung airspace opacities are seen. ACT 112: Negative or not required by law. Electronically signed by: Rm Flores M.D. 04/06/2021 9:13 AM
--- NOTE | 2021-04-06 09:23 | Critical Care Progress Note ---
Date of Service April 06, 2021 Assessment & Plan (1) Abscess, gluteal, right: Plan: Reason Critically Ill: 55-year-old female with RIGHT gluteal abscess with concerns for gas producing organism who is status post I&D as well as wound debridement requiring vasopressors and close hemodynamic monitoring status post intervention. NEURO - * CAM ICU: NEGATIVE * Sedation: Propofol * Pain: Fentanyl CARDIAC/VASCULAR - * Hypertension * Hold antihypertensive currently as the patient is requiring vasopressors. * Monitor on telemetry. * Septic shock improving. RESPIRATORY - * Remains endotracheally intubated: * Patient remains intubated status post surgical debridement. Likely to return to or within the next 24 to 48 hours. * Saturating well on minimal settings.' * Will perform spontaneous breathing trial and extubate once no further surgical interventions required GI/NUTRITION - * OG in place * Consider addition of tube feeds if patient remained intubated for next 24 to 48 hours. RENAL/LYTES - * Chronic kidney disease: * Patient baseline creatinine in the fours. MARK ANTHONY in the setting of sepsis. * Will discontinue bicarbonate drip as acidosis improving. Urine output appears adequate. No indication for acute dialysis at this time. Nephrology following. - * Liz in place - Strict I&Os. ENDO - * IDDM * BSGs per unit protocol. ISS --> gtt per unit policy. HEME - * Anemia of chronic disease. * Monitor H&H --> transfuse if needed. ID - * RIGHT Gluteaal abscess with concerns for gas producing organism: * Source control s/p I&D with wound debridement. * Will de-escalate antibiotics to Zosyn alone. No indication for clindamycin as necrotizing fasciitis was not seen. MRSA screen negative. Daptomycin discontinued. * Wound cultures pending. LINES/IV ACCESS - * PIVs x1 * RIGHT IJ CVL * RIGHT Radial Arterial Line * ET Tube * OG * Liz DVT PROPHYLAXIS - * Hold on chemoprophylaxis s/p extensive debridement/I&D w/ intent to return to the OR in 24-48hrs. * SCDs I have personally spent 40 minutes of critical care time in the direct management of this patient. This is a life/limb threatening event. This includes time spent evaluating patient, direct bedside care, chart review, placing orders, interpretation of diagnostic studies, discussion with consultants, patient, and family members, as well as other required patient management activities. This time is exclusive of all separately billable procedures, and teaching time and separate from and in addition to any other critical care service time. Thank you for allowing us to participate in the care of this patient. Please refer to my attending physician's documentation for any further recommendations. (2) Gas gangrene: (3) Chronic narcotic dependence: Admission and Anticipated Discharge Date Admission Date: April 05, 2021 Subjective Patient is examined. Continues to be heavily sedated. Surgery was applied today the wound. Possible OR later today for wound VAC placement. Review of Systems Review of Systems: Unobtainable due to cognitive status and Unobtainable due to endotracheal tube Physical Exam Physical Exam: VITAL SIGNS - Vital signs and nursing notes were reviewed. GENERAL - 55-year-old female appearing her stated age who is in no acute distress. Intubated and sedated. SKIN - Large RIGHT gluteal incision site packed, dressed - clean, dry, and intact. HEAD - NC/AT. EYES - PERRL with EOMI bilaterally. Sclera anicteric. EARS - No deformities of external structures noted on gross examination bilaterally. NOSE - Midline and without cyanosis. No epistaxis or purulent drainage noted. MOUTH/OROPHARYNX - Without perioral cyanosis. ET Tube in place. NECK - Neck with FROM. Supple to palpation. LUNGS - Chest wall symmetric without accessory muscle use, intercostals retractions, or central cyanosis. Normal vesicular breath sounds CTA B/L. No wheezes, rales, or rhonchi appreciated. CARDIAC - RRR with S1/S2. No murmur, rubs, or gallops appreciated. ABDOMEN - Abdominal contour obese without pulsations or visible masses. BS normoactive all four quadrants. No tenderness, palpable masses, hepatosplenomegaly, or ascites noted. EXTREMITIES - Palpable fistula to the LUE. No clubbing or peripheral cyanosis. No pretibial edema present. +3/5 radial and dorsalis pedis pulses palpated throughout. NEUROLOGIC - Cranial nerves II through XII grossly intact. Results & Data Results & Data ([facility]) Vital Signs (Past 12 Hours) Vital Signs Temp Pulse Resp Pulse Ox Pulse Ox 04/06/21 05:14 91 H 16 97 04/06/21 04:00 96 04/06/21 01:30 92 H 17 99 04/06/21 00:19 94 H 04/06/21 00:00 100.4 F H 93 H 18 96 04/05/21 23:55 100.4 F H 94 H 18 97 04/05/21 23:50 100.4 F H 95 H 18 96 04/05/21 23:45 100.4 F H 93 H 17 98 04/05/21 23:40 100.4 F H 95 H 17 97 04/05/21 23:35 100.4 F H 95 H 26 H 98 04/05/21 23:30 100.4 F H 94 H 19 98 04/05/21 23:25 100.4 F H 93 H 17 97 04/05/21 23:20 100.4 F H 93 H 16 97 04/05/21 23:15 100.4 F H 92 H 17 97 04/05/21 23:10 100.4 F H 93 H 17 97 04/05/21 23:05 100.4 F H 93 H 17 96 04/05/21 23:00 100.4 F H 91 H 17 97 04/05/21 22:55 100.4 F H 92 H 16 97 04/05/21 22:50 100.4 F H 94 H 15 98 04/05/21 22:45 100.2 F H 94 H 16 98 04/05/21 22:40 100.2 F H 92 H 16 97 04/05/21 22:35 100.2 F H 93 H 15 99 04/05/21 22:33 93 H 18 98 04/05/21 22:30 100.2 F H 93 H 17 98 04/05/21 22:25 100.2 F H 92 H 15 98 04/05/21 22:20 100.4 F H 93 H 16 98 04/05/21 22:15 100.4 F H 92 H 17 98 04/05/21 22:10 100.4 F H 92 H 16 99 04/05/21 22:05 100.4 F H 93 H 16 97 04/05/21 22:00 100.4 F H 94 H 17 98 04/05/21 21:55 100.4 F H 93 H 16 97 04/05/21 21:50 100.4 F H 93 H 16 98 04/05/21 21:45 100.4 F H 94 H 16 98 10/30/21 21:40 100.4 F H 94 H 14 97 04/05/21 21:35 100.4 F H 94 H 17 97 04/05/21 21:30 100.4 F H 94 H 18 98 04/05/21 21:25 100.4 F H 94 H 15 97 04/05/21 21:20 100.4 F H 95 H 17 98 Vital signs, labs and imaging personally reviewed Coding Level of Care Code Critical Care 1st 30-74 mins Diagnoses Abscess, gluteal, right L02.31 Gas gangrene A48.0 Chronic narcotic dependence F11.20 Time Spent (min) 40
--- NOTE | 2021-04-06 09:57 | Nephrology Progress Note ---
Date of Service April 06, 2021 Assessment & Plan (1) Acute renal failure: Plan: very slightly improved >> volume overload starting to emerge and she is not clearing well despite making > 1.5L urine; however no oliguria, chemistries acceptable today even better than yesterday w/ acidosis resolved. critical care does not at this time have concerns about uremic encephalopathy, alanna limiting weaning from vent << pt does have "baseline" BUN in 70s for months on differential also is ESRD progression >> baseline creat had been mid-high 3's 2018-Feb 2021; then in march mid 's > mid 5's w/ BUN from 70s > 80s; presented w/ BUN/creat >140/9.2. modestly improved to 130/7.6 today borderline febrile but no evidence todate of florid rhabdomyolysis -recheck bmp, hgb q 12-24 hrs -no indication at this time for further IVF -we have very limited resources for doing dialysis at this hospital d/t staffing constraints which can limit emergent HD but we should be able to accommodate this pts needs if non emergent as I believe they will be >>>for now will continue to observe and to manage medically; will reassess often Care coordinated w/ Drs. Mcnamara and Jluis (2) ESRD (end stage renal disease): Plan: not on chronic dialysis but likely to start this admission given her clinical status has LUE endovascular AVF - ready to use per OP notes but challenging to access based on exam by me and by storage battery charger >>will ask vascular to evaluate AVF tomorrow or later for possible collaterals or other issues that can impact ability to access AVF -if we do emergent HD, will need temporary dialysis catheter but right now no urgent need; we may be able to support her until clinically stable enough to go directly to tunnelled dialysis catheter mid week depending on her course (3) Abscess, gluteal, right: Plan: s/p emergent I&D 04/05 now w/ packed/open wound and OR/vac placmement planned for 04/06 -on zosyn alone now; initially on dapto, zosyn, clinda -f/u cxs (4) Neuroendocrine tumor: Plan: with spinal mets in C spine, L spine, T spine and primary focus R carotid sheath -extra caution w/ spine in maneuvering pt and w/ procedures in/near R neck -- will alert anesthesia -may have extremely high pain mgt needs Admission and Anticipated Discharge Date Admission Date: April 05, 2021 Subjective borderline febrile since 1700 yesterday; pressor needs down, leukocytosis better, responds when sedation lightened, no increased 02 needs, bicarb gtt off; may be going back to OR today for vac placement Review of Systems Review of Systems: Unobtainable due to endotracheal tube Physical Exam Constitutional: well developed, well nourished, + obese and + mechanically ventilated; no acute distress Eyes: EOM intact bilaterally ENMT: Ears: no external ear abnormality Nose: no external nose abnormality Mouth: + dry oral mucous membranes Neck: no nuchal rigidity Respiratory: normal respiratory effort Auscultation: + diminished lung sounds Cardiovascular: Rate/Rhythm: regular rate and regular rhythm Heart Sounds: normal S1 and normal S2 Extremities: + edema (trace-1+ anasarca) and + AV fistula (L AC +bruit; thrill today w/ edema more difficult to isolate) Gastrointestinal (Abdomen): Inspection/Auscultation: normal bowel sounds Percussion/Palpation: abdomen soft; abdomen nontender Musculoskeletal: Extremities: strength 5/5 throughout Skin: no rashes, warm and dry Neurologic: sedated Genitourinary: woodruff > ample urine Results & Data ([facility]) Vital Signs (Past 12 Hours) Vital Signs Temp Pulse Resp Pulse Ox Pulse Ox 04/06/21 07:45 91 H 16 98 04/06/21 05:14 91 H 16 97 04/06/21 04:00 96 04/06/21 01:30 92 H 17 99 04/06/21 00:19 94 H 04/06/21 00:00 38.0 C H 93 H 18 96 04/05/21 23:55 38.0 C H 94 H 18 97 04/05/21 23:50 38.0 C H 95 H 18 96 04/05/21 23:45 38.0 C H 93 H 17 98 04/05/21 23:40 38.0 C H 95 H 17 97 04/05/21 23:35 38.0 C H 95 H 26 H 98 04/05/21 23:30 38.0 C H 94 H 19 98 04/05/21 23:25 38.0 C H 93 H 17 97 04/05/21 23:20 38.0 C H 93 H 16 97 04/05/21 23:15 38.0 C H 92 H 17 97 04/05/21 23:10 38.0 C H 93 H 17 97 04/05/21 23:05 38.0 C H 93 H 17 96 04/05/21 23:00 38.0 C H 91 H 17 97 04/05/21 22:55 38.0 C H 92 H 16 97 04/05/21 22:50 38.0 C H 94 H 15 98 04/05/21 22:45 37.9 C H 94 H 16 98 04/05/21 22:40 37.9 C H 92 H 16 97 04/05/21 22:35 37.9 C H 93 H 15 99 04/05/21 22:33 93 H 18 98 04/05/21 22:30 37.9 C H 93 H 17 98 04/05/21 22:25 37.9 C H 92 H 15 98 04/05/21 22:20 38.0 C H 93 H 16 98 04/05/21 22:15 38.0 C H 92 H 17 98 04/05/21 22:10 38.0 C H 92 H 16 99 04/05/21 22:05 38.0 C H 93 H 16 97 04/05/21 22:00 38.0 C H 94 H 17 98 04/05/21 21:55 38.0 C H 93 H 16 97 04/05/21 21:50 38.0 C H 93 H 16 98 04/05/21 21:45 38.0 C H 94 H 16 98 Laboratory Results 04/06/21 04:21 04/06/21 04:21 urine cx w/ GNR blood, wound cxs NGTD Diagnostic Findings CXR > no pl effusion; BL airspace opacities (1) Acute renal failure Acute renal failure type: unspecified Qualified Code(s): N17.9 - Acute kidney failure, unspecified
[2021-04-06] MEDS ORDERED: fentaNYL citrate 100 MCG/2 ML VIAL ONE (10:22)
[2021-04-06] MEDS ORDERED: MIDAZOLAM HCL 1 MG/ML 2ML VIAL ONE (10:22)
[2021-04-06] MEDS ORDERED: PROPOFOL IV EMULSION 10 MG/ML 20 ML VIAL IV ONE (10:22)
--- NOTE | 2021-04-06 10:59 | Anesthesiology Consultation ---
Date of Service April 06, 2021 Assessment & Plan Chart Review Chart Review: Acceptable Risk for Surgery and Patient NOT seen in Pre Admission Testing Consults Requested none ASA ASA4 Proposed Anesthesia Anesthesia Type: General History Surgery Operation Date: 04/04/21 23:30 Proposed Procedures p Rectal Surgery - Mateusz Carrizales MD Operation Date: 04/06/21 12:30 Proposed Procedures p Debridement - Mateusz Carrizales MD Height/Weight Height: 5 ft 7 in Weight: 109.6 kg Allergies Allergy/AdvReac Type Severity Reaction Status Date / Time Iodinated Contrast Media AdvReac Severe Patient Verified 04/04/21 21:17 has kidney failure omeprazole AdvReac Severe Increased Verified 04/04/21 21:17 her acid reflux Medications Home Medications Medication Instructions Recorded Confirmed Last Taken cholecalciferol (vitamin D3) 125 125 mcg PO QAM 01/11/20 04/04/21 04/04/21 mcg (5,000 unit) capsule furosemide 40 mg tablet (Lasix) 60 mg PO BID tab 01/11/20 04/04/21 04/04/21 08:00 gabapentin 300 mg capsule 300 mg PO TID 01/11/20 04/04/21 04/04/21 08:00 losartan 25 mg tablet 25 mg PO QAM 01/11/20 04/04/21 04/04/21 amlodipine 10 mg tablet 10 mg PO QAM 03/15/21 04/04/21 04/04/21 doxycycline hyclate 100 mg capsule 100 mg PO QAM 03/15/21 04/04/21 04/04/21 glucagon 1 mg solution for 0 mg IM UD 03/15/21 04/04/21 Unknown injection (Glucagon Emergency Kit) hydromorphone 4 mg tablet 4 mg PO Q6H PRN 03/15/21 04/04/21 Unknown insulin NPH isoph U-100 human 100 35 unit SUBCUT BID 03/15/21 04/04/21 04/04/21 08:00 unit/mL (3 mL) subcutaneous pen (Humulin N NPH U-100 Insulin KwikPen) insulin aspart U-100 100 unit/mL 1 sliding scale dose SUBCUT 03/15/21 04/04/21 04/04/21 08:00 subcutaneous solution (Novolog USEASDIRECTD U-100 Insulin aspart) labetalol 100 mg tablet 100 mg PO BID 03/15/21 04/04/21 04/04/21 08:00 levothyroxine 125 mcg tablet 125 mcg PO DAILYBB 03/15/21 04/04/21 04/04/21 methadone 5 mg tablet 5 mg PO BID 03/15/21 04/04/21 04/04/21 08:00 Active Medications Generic Name Dose Route Start Last Admin Trade Name Salvador PRN Reason Stop Dose Admin Fentanyl Citrate 50 mcg 04/05/21 03:46 04/06/21 03:30 Fentanyl Bolus From Bag IV 04/19/21 03:45 50 mcg Q60M PRN Administration Pain or Agitation Norepinephrine Bitartrate 8 mg in 508 mls @ 0 mls/hr 04/05/21 04:00 04/06/21 10:44 Levophed/D5w IV 05/05/21 03:59 0 mcg/kg/min .Q0M KIRT 0 mls/hr Titration Protocol 0 MCG/KG/MIN Propofol 1,000 mg in 100 mls @ 16.02 mls/hr 04/05/21 04:00 04/06/21 10:43 Diprivan IV 04/08/21 03:59 25 mcg/kg/min .Q6H15M KIRT 16 mls/hr Administration Protocol 25 MCG/KG/MIN Acetaminophen 1,000 mg in 100 mls @ 400 mls/hr 04/05/21 03:46 04/06/21 01:39 Ofirmev IV 04/08/21 03:45 Infused Q8H PRN Infusion Fever/Mild Pain (Pain 1,2,3) Fentanyl Citrate 1,250 mcg in 250 mls @ 15 mls/hr 04/05/21 04:00 04/06/21 07:15 Fentanyl Drip IV 04/19/21 03:59 75 mcg/hr .[id number] KIRT 15 mls/hr Administration Protocol 75 MCG/HR Piperacillin Sod/Tazobactam 120 mls @ 30 mls/hr 04/05/21 06:00 04/06/21 10:05 Sod 4.5 gm/ Dextrose IV 04/12/21 05:59 Infused Q12H KIRT Infusion Protocol Insulin Aspart 0 units 04/05/21 06:30 04/06/21 06:09 Insulin Aspart 100 Units/Ml 3 Ml Pen SC 05/05/21 06:29 8 units Q6 KIRT Administration Propofol 20 mg 04/05/21 03:46 04/06/21 03:30 Propofol Bolus From Bag IV 04/08/21 03:45 20 mg Q5M PRN Administration Sedation NPO Date Last Intake of Fluids: 04/04/21 Time Last Intake of Fluids: 11:00 Last Intake of Fluids Comment: Pt. reports sips of water while in the waiting room. Date Last Intake of Solids: 04/04/21 Time Last Intake of Solids: 11:00 Last Intake of Solids Comment: Pt. reports eating some candy prior to arrival. Denies other solids. Past Medical History Medical History Acid reflux Amputation of right great toe Anemia Diabetes Diabetic retinopathy ESRD (end stage renal disease) not on dialysis H/O vocal cord paralysis Right side Hypertension MRSA bacteremia 2017; unclear if vertebral or R diabetic foot wound source Neuroendocrine tumor (12/05/19) with spinal mets C spine alanna and T, L as well; primary focus R carotid sheath Pneumonia (10/05/13) Retinal hemorrhage, right eye Sepsis Shortness of breath (10/05/13) Thyroid cancer Thyroid nodule Exercise / Class Metabolic Activity III < 4 Walking/Shop/Light housework Past Family History Family History Mother , 70yo Valvular heart disease Diabetes Father , 74yo Pneumonia Diabetes Brother No problems noted. Brother No problems noted. Sister Dialysis patient Kidney disease Daughter No problems noted. Daughter Diabetes Past Surgical History Surgical History AVF (arteriovenous fistula) endovascular L; created 09/2020 H/O thyroidectomy Partial thyroidectomy History of cholecystectomy History of surgery Surgery to removed benign tumor from right vocal cord; Hx of cataract surgery Bilateral Hx of tonsillectomy Previous section Past Anesthesia History No Hx of Anesthesia Complications and No Family Hx of Anesthesia Complications History of PONV No Hx of PONV and No Hx of Motion Sickness Social History Smoking Status: Never smoker Hx Alcohol Use: No Hx Substance Use: No Physical Exam Vital Signs Last Vital Signs Temp 38.0 C H 04/06/21 00:00 Pulse 92 H 04/06/21 08:00 Resp 16 04/06/21 07:45 BP 141/68 H 04/05/21 17:00 Pulse Ox 98 04/06/21 07:45 Testing Laboratory Results 04/06/21 04:21 04/06/21 04:21 Urine Color Yellow 04/05/21 Unknown Urine Appearance Cloudy (Clear) A 04/05/21 Unknown Urine pH 5.0 (4.5-7.5) 04/05/21 Unknown Ur Specific [place] 1.010 (1.000-1.030) 04/05/21 Unknown Urine Protein Trace (Negative) H 04/05/21 Unknown Urine Glucose (UA) Negative (Negative) 04/05/21 Unknown Urine Ketones Negative (Negative) 04/05/21 Unknown Urine Nitrite Negative (Negative) 04/05/21 Unknown Ur Leukocyte Esterase 3+ (Negative) H 04/05/21 Unknown Urine WBC (Auto) >30 /hpf (0-5) H 04/05/21 Unknown Urine RBC (Auto) 0-4 /hpf (0-4) 04/05/21 Unknown U Hyaline Cast (Auto) 1-5 /lpf (0-5) 04/05/21 Unknown U Epithel Cells (Auto) 0-5 /lpf (0-5) 04/05/21 Unknown Urine Bacteria (Auto) Negative (Negative) 04/05/21 Unknown 04/05/21 Unknown Urine Culture - Preliminary Urine,Clean Catch Gram negative bacilli 04/04/21 22:54 Aerobic Blood Culture - Preliminary Blood No growth in Aerobic bottle after 24 hours. Anaerobic Blood Culture - Preliminary No growth in Anaerobic bottle after 24 hours. 04/04/21 22:54 Aerobic Blood Culture - Preliminary Blood No growth in Aerobic bottle after 24 hours. Anaerobic Blood Culture - Preliminary No growth in Anaerobic bottle after 24 hours. 04/05/21 01:50 Gram Stain - Final Buttock,Right 04/06/21 04/05/21 06:06 23:04 POC Glucose (other) 335 H 296 H Chest X-Ray Date: 04/06/21 Findings: + infiltrate (bilateral lower airspace opacities) and + other (lungs underinflated)
--- NOTE | 2021-04-06 11:17 | Surgery Progress Note ---
Date of Service April 06, 2021 Assessment & Plan (1) Acute renal failure: (2) Abscess, gluteal, right: (3) Gas gangrene: (4) Acute dehydration: Plan: Postop day 2 status post debridement of gluteal necrotizing infection/abscess. She continues on the ventilator and on norepinephrine for blood pressure support. Renal function seems to be slowly improving without the aid of dialysis. Creatinine today is 7.6. She continues on a bicarbonate drip. There is still small amount of necrotic tissue deep in the wounds. Plan to return to the operating room for further debridement and washout. Attempts to contact her have so far been unsuccessful. We will continue to attempt to contact him for consent. Admission and Anticipated Discharge Date Admission Date: April 05, 2021 Subjective Postoperative day 2 status post debridement of necrotizing infection of the right gluteal region. She is still intubated. She is still on Levophed, however the dose has been cut in half since yesterday. White blood cell count is normal at 9 today. The dressing was changed at the bedside. Physical Exam Constitutional: WD/WN, vitals as above + mechanically ventilated Gastrointestinal (Abdomen): Inspection/Auscultation: abdomen not distended Percussion/Palpation: abdomen soft; abdomen nontender and abdomen not rigid Musculoskeletal: Extremities: no cyanosis and no clubbing Skin: no rashes, warm and dry Right buttock wound packing removed. Minimal drainage; small amount of necrotic infection tracking deep and close to the rectum. Psychiatric: A+Ox3, euthymic affect Results & Data ([facility]) Vital Signs (Past 12 Hours) Vital Signs Temp Pulse Resp Pulse Ox Pulse Ox 04/06/21 08:00 92 H 04/06/21 07:45 91 H 16 98 04/06/21 05:14 91 H 16 97 04/06/21 04:00 96 04/06/21 01:30 92 H 17 99 04/06/21 00:19 94 H 04/06/21 00:00 38.0 C H 93 H 18 96 04/05/21 23:55 38.0 C H 94 H 18 97 04/05/21 23:50 38.0 C H 95 H 18 96 04/05/21 23:45 38.0 C H 93 H 17 98 04/05/21 23:40 38.0 C H 95 H 17 97 04/05/21 23:35 38.0 C H 95 H 26 H 98 04/05/21 23:30 38.0 C H 94 H 19 98 04/05/21 23:25 38.0 C H 93 H 17 97 04/05/21 23:20 38.0 C H 93 H 16 97 04/05/21 23:15 38.0 C H 92 H 17 97 (1) Acute renal failure Acute renal failure type: unspecified Qualified Code(s): N17.9 - Acute kidney failure, unspecified
--- NOTE | 2021-04-06 11:43 | Hospitalist Progress Note ---
Date of Service April 06, 2021 Assessment & Plan (1) Abscess, gluteal, right: (2) Gas gangrene: (3) Acute renal failure: (4) ESRD (end stage renal disease): Plan: Right gluteal abscess, gas forming, necrotizing abscess,Sepsis . status emergent incision and drainage by surgeon Still intubated as patient planned to go back to OR today inventory control specialist on board managing vent and sedation Plan to extubate after OR today Continue wound care per surgeon Continue zosyn. Was initially on dapto, zosyn and clindamycin UCx growing GNR Other cultures in lab Diabetes mellitus Poor glycemic control Insulin drip Pharm consult for better control Hypertension: Currently requiring pressors. Holding home labetalol, Losartan, and amlodipine. Chronic pain: On methadone and hydromorphone prn, which are being held while intubated Acute on Chronic kidney disease stage V: Metabolic acidosis Acidosis resolved [employer] Aide eval and recommendations noted. No need for HD today. Continue to monitor Nephro will want vascular to reassess AVF tomorrow History of neuroendocrine tumor involving the cervical spine. 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 She received radiation therapy to the neck area. Follow up with hem/onc. Deep venous thrombosis prophylaxis: Currently on sequential compression devices. No pharm agent at this time due to surgery Will reassess later Admission and Anticipated Discharge Date Admission Date: April 05, 2021 Subjective 55 y/o F w/ metastatic neuroendocrine tumor (to spine w/ primary lesion R carotid sheath), ESRD 5 not on dialysis w/ nephrotic range proteinuria, DM x 30 yrs, HTN x 15 yrs was admitted overnight with sepsis from R gluteal abscess and gas gangrene s/p emergent debridement on admission Patient was intubated. Had MARK ANTHONY on CKD5 with acidosis. Required bicarb drip yesterday. Patient seen and examined today Intubated and sedated Review of Systems Review of Systems: Unobtainable due to endotracheal tube Physical Exam Constitutional: + mechanically ventilated ENMT: ETT and OGT in situ Respiratory: normal respiratory effort, lungs clear to auscultation Cardiovascular: RRR S1 S2 Gastrointestinal (Abdomen): normal bowel sounds, soft, nontender, no hepatosplenomegaly Musculoskeletal: No pedal edema Skin: Could not examine surgical site as patient is intubated and sedated Neurologic: Intubated and sedated Genitourinary: Liz in situ Results & Data Results & Data ([facility]) Vital Signs (Past 12 Hours) Vital Signs Temp Pulse Resp Pulse Ox Pulse Ox 04/06/21 08:00 92 H 04/06/21 07:45 91 H 16 98 04/06/21 05:14 91 H 16 97 04/06/21 04:00 96 04/06/21 01:30 92 H 17 99 04/06/21 00:19 94 H 04/06/21 00:00 38.0 C H 93 H 18 96 04/05/21 23:55 38.0 C H 94 H 18 97 04/05/21 23:50 38.0 C H 95 H 18 96 04/05/21 23:45 38.0 C H 93 H 17 98 Laboratory Results Abnormal lab results 04/05/21 04/05/21 04/05/21 Range/Units 17:18 17:31 19:58 RBC (4.2-5.4) M/uL Hgb (12.0-16.0) g/dL POC Hgb (12.0-16.0) g/dl Hct (37-47) % POC Hct (37-47) % MCHC (32-36) g/dL Neut # (Auto) (1.4-6.5) K/uL Lymph # (Auto) (1.2-3.4) K/uL Immature Gran # (Auto) (0.00-0.02) K/uL POC pO2 (80-95) mmHg POC Sodium (135-144) mmol/L Sodium 130 L (136-145) mmol/L Chloride 93 L (98-107) mmol/L Carbon Dioxide 18 L (21-32) mmol/L Anion Gap 18.0 H (3-11) BUN 136 H (7-18) mg/dl Creatinine 7.92 H* D (0.6-1.2) mg/dl Glucose 279 H (70-99) mg/dl POC Glucose 294 H (70-99) mg/dl POC Glucose (other) 268 H (70-99) mg/dl Phosphorus (2.5-4.9) mg/dl Total Creatine Kinase (26-192) U/L Beta-Hydroxybutyric Acd (0.2-2.81) mg/dl Urine WBC (Auto) (0-5) /hpf 04/05/21 04/05/21 04/06/21 Range/Units 23:04 Unknown 04:21 RBC 2.39 L (4.2-5.4) M/uL Hgb 7.2 L (12.0-16.0) g/dL POC Hgb (12.0-16.0) g/dl Hct 22.7 L (37-47) % POC Hct (37-47) % MCHC 31.7 L (32-36) g/dL Neut # (Auto) 7.26 H (1.4-6.5) K/uL Lymph # (Auto) 0.93 L (1.2-3.4) K/uL Immature Gran # (Auto) 0.14 H (0.00-0.02) K/uL POC pO2 (80-95) mmHg POC Sodium (135-144) mmol/L Sodium (136-145) mmol/L Chloride (98-107) mmol/L Carbon Dioxide (21-32) mmol/L Anion Gap (3-11) BUN (7-18) mg/dl Creatinine (0.6-1.2) mg/dl Glucose (70-99) mg/dl POC Glucose (70-99) mg/dl POC Glucose (other) 296 H (70-99) mg/dl Phosphorus (2.5-4.9) mg/dl Total Creatine Kinase (26-192) U/L Beta-Hydroxybutyric Acd (0.2-2.81) mg/dl Urine WBC (Auto) >30 H (0-5) /hpf 04/06/21 04/06/21 04/06/21 Range/Units 04:21 05:20 06:06 RBC (4.2-5.4) M/uL Hgb (12.0-16.0) g/dL POC Hgb 7.1 L (12.0-16.0) g/dl Hct (37-47) % POC Hct 21 L (37-47) % MCHC (32-36) g/dL Neut # (Auto) (1.4-6.5) K/uL Lymph # (Auto) (1.2-3.4) K/uL Immature Gran # (Auto) (0.00-0.02) K/uL POC pO2 74 L (80-95) mmHg POC Sodium 129 L (135-144) mmol/L Sodium 128 L (136-145) mmol/L Chloride 93 L (98-107) mmol/L Carbon Dioxide (21-32) mmol/L Anion Gap 12.0 H (3-11) BUN 130 H (7-18) mg/dl Creatinine 7.60 H* D (0.6-1.2) mg/dl Glucose 313 H* (70-99) mg/dl POC Glucose (70-99) mg/dl POC Glucose (other) 335 H (70-99) mg/dl Phosphorus 7.5 H (2.5-4.9) mg/dl Total Creatine Kinase 507 H (26-192) U/L Beta-Hydroxybutyric Acd 4.06 H (0.2-2.81) mg/dl Urine WBC (Auto) (0-5) /hpf 04/06/21 04/06/21 04/06/21 Range/Units 11:50 11:51 15:11 RBC (4.2-5.4) M/uL Hgb (12.0-16.0) g/dL POC Hgb (12.0-16.0) g/dl Hct (37-47) % POC Hct (37-47) % MCHC (32-36) g/dL Neut # (Auto) (1.4-6.5) K/uL Lymph # (Auto) (1.2-3.4) K/uL Immature Gran # (Auto) (0.00-0.02) K/uL POC pO2 (80-95) mmHg POC Sodium (135-144) mmol/L Sodium (136-145) mmol/L Chloride (98-107) mmol/L Carbon Dioxide (21-32) mmol/L Anion Gap (3-11) BUN (7-18) mg/dl Creatinine (0.6-1.2) mg/dl Glucose (70-99) mg/dl POC Glucose 325 H* 326 H* 325 H* (70-99) mg/dl POC Glucose (other) (70-99) mg/dl Phosphorus (2.5-4.9) mg/dl Total Creatine Kinase (26-192) U/L Beta-Hydroxybutyric Acd (0.2-2.81) mg/dl Urine WBC (Auto) (0-5) /hpf 04/06/21 Range/Units 15:11 RBC (4.2-5.4) M/uL Hgb (12.0-16.0) g/dL POC Hgb (12.0-16.0) g/dl Hct (37-47) % POC Hct (37-47) % MCHC (32-36) g/dL Neut # (Auto) (1.4-6.5) K/uL Lymph # (Auto) (1.2-3.4) K/uL Immature Gran # (Auto) (0.00-0.02) K/uL POC pO2 (80-95) mmHg POC Sodium (135-144) mmol/L Sodium (136-145) mmol/L Chloride (98-107) mmol/L Carbon Dioxide (21-32) mmol/L Anion Gap (3-11) BUN (7-18) mg/dl Creatinine (0.6-1.2) mg/dl Glucose (70-99) mg/dl POC Glucose 330 H* (70-99) mg/dl POC Glucose (other) (70-99) mg/dl Phosphorus (2.5-4.9) mg/dl Total Creatine Kinase (26-192) U/L Beta-Hydroxybutyric Acd (0.2-2.81) mg/dl Urine WBC (Auto) (0-5) /hpf (1) Acute renal failure Acute renal failure type: unspecified Qualified Code(s): N17.9 - Acute kidney failure, unspecified
--- NOTE | 2021-04-06 11:51 | Communication Note ---
Date of Service: April 06, 2021 Pt. is intubated in situ w/ 7.5 ETT; attached to mechanical ventilator.
--- NOTE | 2021-04-06 13:14 | Post Operative Brief Note ---
Immediate Post Op Note v1 Date of Surgery April 06, 2021 Pre & Post Diagnosis Operation Date: 04/04/21 23:30 Pre-Op Diagnosis: Right Gluteal Abscess Post-Op Diagnosis: Right Gluteal Abscess Operation Date: 04/06/21 12:30 Pre-Op Diagnosis: Right Buttock Wound Post-Op Diagnosis: Right Buttock Wound I identified the patient and participated in the time-out.: Yes Procedure Operation Date: 04/04/21 23:30 Actual Procedures p Incision and Drainage of Right Gluteal Abscess(Right) - Mateusz Carrizales MD Operation Date: 04/06/21 12:30 Actual Procedures p Right Buttock Wound Debridement and Dressing Change(Right) - Mateusz Carrizales MD Surgeon Mateusz Carrizales MD [employer] Subcontractor none Estimated Blood Loss 5 Findings Consistent with Post-Op Diagnosis Drains Liz Catheter Anesthesia Type General
--- NOTE | 2021-04-06 13:22 | Operative Report ---
Post Operative Report Pre & Post Diagnosis Operation Date: 04/04/21 23:30 Pre-Op Diagnosis: Right Gluteal Abscess Post-Op Diagnosis: Right Gluteal Abscess Operation Date: 04/06/21 12:30 Pre-Op Diagnosis: Right Buttock Wound Post-Op Diagnosis: Right Buttock Wound I identified the patient and participated in the time-out.: Yes Procedure Operation Date: 04/04/21 23:30 Actual Procedures p Incision and Drainage of Right Gluteal Abscess(Right) - Mateusz Carrizales MD Operation Date: 04/06/21 12:30 Actual Procedures p Right Buttock Wound Debridement and Dressing Change(Right) - Mateusz Carrizales MD Surgeon Mateusz Carrizales MD Online Tutor none Estimated Blood Loss 5 Findings Consistent with Post-Op Diagnosis Small amount of necrotic material remained within the wound; otherwise wound looks clean with good granulation tissue Specimens None Anesthesia Type General Complications No immediate complications Indications Necrotizing infection gluteal region Description of Procedure The patient was taken to the operating room from the ICU. She was already on a ventilator. A timeout was performed. She was moved to the operative field and placed in the left lateral decubitus position. The wound was unpacked and explored. There was a small amount of necrotic material deep in the wound. This was debrided sharply with scissor dissection. This was done back to healthy bleeding tissue. The wound was pulse irrigated with 3 L of saline. The inferior aspect of the wound, closest to the anal verge was noted to be clear of any necrotic tissue and had good granulation tissue. This area of the wound was closed in layers of 3-0 Vicryl and 3-0 nylon suture. This was done in an att empt to give more room for possible wound VAC placement in the future. The wound was repacked with wet to dry Kerlix and 4 x 4's with an ABD pad. The dressing was applied. She tolerated the procedure without complication, and was transferred back to the ICU. All instrument, needle, and sponge counts were correct at the end of the case. I attest to the content of the Intraoperative Record and any orders documented therein. Any exceptions are noted below.
[2021-04-06] MEDS ORDERED: ATROPINE SULFATE 0.1 MG/ML 10ML SYR IV PRN (13:38)
[2021-04-06] MEDS ORDERED: ePHEDrine sulfate 50 MG/ML AMP IV PRN (13:38)
--- NOTE | 2021-04-06 13:42 | Anesthesiology Progress Note ---
Date of Service April 06, 2021 Anesthesia Post Procedure Vital Signs Vital Signs: Temp Pulse Resp BP Pulse Ox Pulse Ox 04/06/21 12:00 37.2 C 84 16 158/64 H 100 04/06/21 11:15 82 16 100 04/06/21 11:00 37.2 C 78 16 95/45 L 100 04/06/21 10:00 37.3 C 80 16 128/52 L 100 04/06/21 09:00 37.5 C 94 H 16 90 04/06/21 08:00 37.8 C H 90 18 100 04/06/21 07:45 91 H 16 98 04/06/21 05:14 91 H 16 97 04/06/21 04:00 96 04/06/21 01:30 92 H 17 99 04/06/21 00:19 94 H 04/06/21 00:00 38.0 C H 93 H 18 96 04/05/21 23:55 38.0 C H 94 H 18 97 04/05/21 23:50 38.0 C H 95 H 18 96 04/05/21 23:45 38.0 C H 93 H 17 98 04/05/21 23:40 38.0 C H 95 H 17 97 04/05/21 23:35 38.0 C H 95 H 26 H 98 04/05/21 23:30 38.0 C H 94 H 19 98 04/05/21 23:25 38.0 C H 93 H 17 97 04/05/21 23:20 38.0 C H 93 H 16 97 04/05/21 23:15 38.0 C H 92 H 17 97 04/05/21 23:10 38.0 C H 93 H 17 97 04/05/21 23:05 38.0 C H 93 H 17 96 04/05/21 23:00 38.0 C H 91 H 17 97 04/05/21 22:55 38.0 C H 92 H 16 97 04/05/21 22:50 38.0 C H 94 H 15 98 04/05/21 22:45 37.9 C H 94 H 16 98 04/05/21 22:40 37.9 C H 92 H 16 97 04/05/21 22:35 37.9 C H 93 H 15 99 04/05/21 22:33 93 H 18 98 04/05/21 22:30 37.9 C H 93 H 17 98 04/05/21 22:25 37.9 C H 92 H 15 98 04/05/21 22:20 38.0 C H 93 H 16 98 04/05/21 22:15 38.0 C H 92 H 17 98 04/05/21 22:10 38.0 C H 92 H 16 99 04/05/21 22:05 38.0 C H 93 H 16 97 04/05/21 22:00 38.0 C H 94 H 17 98 04/05/21 21:55 38.0 C H 93 H 16 97 04/05/21 21:50 38.0 C H 93 H 16 98 04/05/21 21:45 38.0 C H 94 H 16 98 04/05/21 21:40 38.0 C H 94 H 14 97 04/05/21 21:35 38.0 C H 94 H 17 97 04/05/21 21:30 38.0 C H 94 H 18 98 04/05/21 21:25 38.0 C H 94 H 15 97 04/05/21 21:20 38.0 C H 95 H 17 98 04/05/21 21:15 38.0 C H 94 H 16 98 04/05/21 21:10 38.0 C H 95 H 14 98 04/05/21 21:05 38.0 C H 94 H 17 98 04/05/21 21:00 38.0 C H 95 H 17 97 04/05/21 20:55 38.0 C H 93 H 14 98 04/05/21 20:50 38.1 C H 94 H 16 98 04/05/21 20:45 38.1 C H 94 H 16 97 04/05/21 20:40 38.1 C H 93 H 17 97 04/05/21 20:35 38.1 C H 94 H 18 97 04/05/21 20:30 38.1 C H 94 H 17 96 04/05/21 20:25 38.1 C H 95 H 17 98 04/05/21 20:20 38.1 C H 94 H 17 98 04/05/21 20:15 38.1 C H 95 H 18 98 04/05/21 20:10 38.1 C H 95 H 16 98 04/05/21 20:05 38.2 C H 94 H 17 98 10/30/21 19:55 38.2 C H 92 H 16 97 04/05/21 19:20 94 H 17 98 04/05/21 18:45 94 H 04/05/21 17:00 38.2 C H 96 H 19 141/68 H 98 04/05/21 16:00 37.8 C H 94 H 21 149/76 H 99 04/05/21 15:14 92 H 19 100 04/05/21 15:00 37.7 C H 92 H 16 131/69 100 04/05/21 14:00 91 H 19 116/63 100 Pain Intensity Right Buttock: Pain Intensity: 0 Transfer of Care Handoff Completed per policy Notes Mental Status: see notes below Patient Amnestic to Procedure: Yes Nausea / Vomiting: adequately controlled Pain: adequately controlled Airway Patency, RR, SpO2: stable & adequate BP & HR: stable & adequate Hydration State: stable & adequate Anesthetic Complications: no major complications apparent Notes: Pt has been sedated and intubated ,thus cannot participate in postop assessment
[2021-04-06] MEDS ORDERED: PHARMACY GLYCEMIC MGMT CONSULT PRN (15:33)
[2021-04-06] MEDS ORDERED: STAT IV Infusion **Titration per Protocol STA (15:37)
[2021-04-06] MEDS ORDERED: INSULIN PROTOCOL GOAL RANGE ONE (15:37)
[2021-04-06] MEDS ORDERED: INSULIN REGULAR 250 UNITS in SODIUM CHLORIDE 0.9% 247.5 ML IV SCH (16:00)
[2021-04-06] MEDS ORDERED: NovoLIN-R BOLUS FROM BAG IV ONE (16:00)
[2021-04-06] MEDS: INSULIN GLARGINE SOLOSTAR 100 UNITS/ML 3 ML PEN SC SCH (16:09)
--- NOTE | 2021-04-06 16:17 | Pharmacy Report ---
Pharmacy Glycemic Short Note 2 - Date of Service April 06, 2021 - Glycemic Short BSG Results (Last 24 hours): 04/05/21 04/05/21 04/05/21 17:18 17:31 19:58 Glucose 279 H POC Glucose 294 H POC Glucose (other) 268 H 04/05/21 04/06/21 04/06/21 23:04 04:21 06:06 Glucose 313 H* POC Glucose POC Glucose (other) 296 H 335 H 04/06/21 04/06/21 04/06/21 11:50 11:51 15:11 Glucose POC Glucose 325 H* 326 H* 325 H* POC Glucose (other) 04/06/21 15:11 Glucose POC Glucose 330 H* POC Glucose (other) OUTPATIENT ANTIDIABETIC REGIMEN: * NPH 35 units SQ BID * NovoLog per scale * No A1c in chart since 2018 ASSESSMENT: * 55yo T2DM female with unknown degree of outpatient control. Ordered A1c with AM labs per protocol for 04/07/21 * Pt with moderate hyperglycemia on admission- now severe hyperglycemia secondary to illness/infection, mechanical ventilation, s/p OR for I&D, and basal insulin deficiency. No scheduled insulin ordered - just SSI on ad mission. * BSG > 219 x 2 --> will start IV insulin infusion per protocol. Hospitalist in agreement * Will start low dose basal insulin to cover baseline needs while NPO. Will use Lantus instead of outpatient NPH s/t NPO status. * Titrate based on BSG trends to maintain BSGs 140-180 mg/dl. PLAN FOR INPATIENT GLYCEMIC CONTROL: * Basal insulin * Lantus 20 units SQ BID * Insulin infusion per protocol * Will start with weight based dosing and then titrate per IV insulin infusion adjustment calculator * 10 unit IV bolus + 10 units/hr (0.1 units/kg) * Bolus insulin- hold since NPO (no CHO coverage needed and insulin infusion will replace the CF) PLAN FOR DISCHARGE: * TBD based on A1c
--- NOTE | 2021-04-06 17:21 | Ultrasound Report ---
US hemodialysis access CLINICAL HISTORY: left arm endovascular fistula present. TECHNIQUE: Real-time grayscale sonographic images of the left radioulnar region were obtained. Comparison: None available at the time of this dictation. FINDINGS/IMPRESSION: Exam is limited due to patient condition. There is a likely radial stent and a d istal/proximal radial vein is seen at the antecubital fossa with Doppler flow noted. Patient brachial and basilic veins are seen with pulsatile flow. Patent cephalic vein with relatively slow flow. ACT 112: Negative or not required by law. Electronically signed by: Rm Flores M.D. 04/06/2021 5:20 PM
[2021-04-06] MEDS ORDERED: DAPTOmycin 350 MG in SYRINGE 0 ML IV SCH (20:00)
[2021-04-06] MEDS ORDERED: HYDROmorphone INJ 0.5 MG/0.5 ML SYR IV STA (22:57)
[2021-04-07] MEDS: ACETAMINOPHEN 1,000 MG/100 ML VIAL IV PRN ×2 (00:11→12:14)
[2021-04-07] MEDS: INSULIN GLARGINE SOLOSTAR 100 UNITS/ML 3 ML PEN SC SCH (00:11)
[2021-04-07] MEDS: PIPERACILLIN/TAZOBACTAM 4.5 GM in DEXTROSE 5% 100 ML IV SCH ×2 (05:42→18:18)
--- NOTE | 2021-04-07 07:09 | Surgery Progress Note ---
Date of Service April 07, 2021 Assessment & Plan (1) Acute renal failure: (2) Abscess, gluteal, right: (3) Gas gangrene: (4) Acute dehydration: Plan: Postop day 3 and 1 status post debridement of gluteal necrotizing infection/abscess. She has been extubated and is doing well. She continues on antibiotics. We will examine her wound with the wound care nurse today to discuss possibility of wound VAC placement. Advance diet as tolerated. Admission and Anticipated Discharge Date Admission Date: April 05, 2021 Subjective She is doing well this morning. She was extubated yesterday and has been transferred to the floor. She is on facemask O2. She has some aching discomfort and pain in her buttock and back. Denies nausea vomiting. Physical Exam Constitutional: WD/WN, vitals as above Eyes: PERRL, conjunctivae normal, anicteric sclerae Neck: trachea midline, no thyromegaly Gastrointestinal (Abdomen): Inspection/Auscultation: abdomen not distended Percussion/Palpation: abdomen soft; abdomen nontender and abdomen not rigid Musculoskeletal: Extremities: no cyanosis and no clubbing Skin: no rashes, warm and dry Psychiatric: A+Ox3, euthymic affect Results & Data ([facility]) Vital Signs (Past 12 Hours) Vital Signs Temp Pulse Pulse Resp BP BP Pulse Ox 04/07/21 04:19 36.8 C 92 H 18 110/63 95 04/07/21 04:00 04/07/21 00:00 93 H 04/06/21 21:49 37.1 C 94 H 18 104/64 91 04/06/21 20:00 37.5 C 90 14 119/55 L 95 Pulse Ox 04/07/21 04:19 04/07/21 04:00 95 04/07/21 00:00 04/06/21 21:49 04/06/21 20:00 Laboratory Results 04/07/21 04/07/21 04/07/21 Range/Units 06:05 02:36 01:28 POC Glucose 75 85 83 (70-99) mg/dl 04/07/21 04/07/21 04/06/21 Range/Units 00:30 00:00 23:32 POC Glucose 94 99 103 H (70-99) mg/dl 04/06/21 04/06/21 04/06/21 Range/Units 22:34 21:30 20:26 POC Glucose 123 H 126 H 142 H (70-99) mg/dl 04/06/21 04/06/21 04/06/21 Range/Units 20:06 19:46 18:34 POC Glucose 139 H 132 H 175 H (70-99) mg/dl 04/06/21 04/06/21 04/06/21 Range/Units 17:25 15:11 15:11 POC Glucose 197 H 330 H* 325 H* (70-99) mg/dl 04/06/21 04/06/21 Range/Units 11:51 11:50 POC Glucose 326 H* 325 H* (70-99) mg/dl (1) Acute renal failure Acute renal failure type: unspecified Qualified Code(s): N17.9 - Acute kidney failure, unspecified
[2021-04-07 08:56] LABS: BUN Creatinine Ratio 17.4 (10-20); Calcium 9.3 mg/dl (8.5-10.1); Creatinine Clr Calc Pharmacy 11.2 ml/min; Est GFR (African American) 6.6 ml/min; Est GFR (Non-African American) 5.7 ml/min; Magnesium 2.1 mg/dl (1.8-2.4); Potassium 3.7 mmol/L (3.5-5.1)
[2021-04-07 08:58] LABS: Basophils # (auto) 0.01 K/uL (0-0.2); Basophils % (auto) 0.1 %; Eosinophils # (auto) 0.19 K/uL (0-0.5); Eosinophils % (auto) 2.5 %; Hemoglobin 7.1 g/dL (12.0-16.0); Immature Granulocytes # (auto) 0.09 K/uL (0.00-0.02); Immature Granulocytes % (auto) 1.2 %; Lymphocytes # (auto) 0.94 K/uL (1.2-3.4); Lymphocytes % (auto) 12.2 %; Mean Corpuscular Hemoglobin 30.7 pg (25-34); Mean Corpuscular Hgb Conc 32.3 g/dL (32-36); Mean Corpuscular Volume 95.2 fL (80-100); Mean Platelet Volume 9.6 fL (7.4-10.4); Monocytes % (auto) 6.5 %; Neutrophils # (auto) 5.97 K/uL (1.4-6.5); Neutrophils % (auto) 77.5 %; Platelet Count 194 K/uL (130-400); RDW Coefficient of Variation 13.2 % (11.5-14.5); RDW Standard Deviation 46.4 fL (36.4-46.3); Red Blood Count 2.31 M/uL (4.2-5.4)
[2021-04-07] MEDS: INSULIN ASPART 100 UNITS/ML 3 ML PEN SC SCH ×4 (09:00→20:26)
[2021-04-07 09:27] LABS: RBC Morphology Unremarkable
--- NOTE | 2021-04-07 09:31 | Hospitalist Progress Note ---
Date of Service April 07, 2021 Assessment & Plan (1) Abscess, gluteal, right: (2) Gas gangrene: (3) Acute renal failure: (4) ESRD (end stage renal disease): Plan: Right gluteal abscess, gas forming, necrotizing abscess Sepsis status emergent incision and drainage by surgeon on 04/05/21 and 04/06/21 Extubated yesterday Passed dysphagia screen Start diet Continue wound care per surgeon Continue zosyn. Was initially on dapto, zosyn and clindamycin UCx growing E coli Other cultures no growth so far Pain control Diabetes mellitus Discussed with pharm Off insulin drip. Continue insulin regimen sq Hypertension: Required pressors while intubated Continue to hold home labetalol, Losartan, and amlodipine. BP is currently normal Chronic pain: On methadone and hydromorphone at home Dose confirmed Resume methadone. Start hydromorphine at 2mg q6h prn. Was on 4mg recently per PDMP Acute on Chronic kidney disease stage V: Metabolic acidosis Acidosis resolved [employer] eval and recommendations noted. No need for HD today. Continue to monitor Vascular consulted to assess AVF History of neuroendocrine tumor involving the cervical spine. 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 She received radiation therapy to the neck area. Follow up with hem/onc. Deep venous thrombosis prophylaxis: Currently on sequential compression devices. 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 Carrizales. Patient was extubated yesterday and transferred from ICU. Patient had MARK ANTHONY on CKD 5 with acidosis on admission. Required bicarb drip briefly Patient seen and examined this morning Reports surgical site pain. Denies any headache, dizziness, cough, shortness of breath No nausea, vomiting abdominal pain, diarrhea Denies dysuria, frequency, urgency Physical Exam Constitutional: + well hydrated and + obese; no acute distress Eyes: PERRL, conjunctivae normal, anicteric sclerae Respiratory: normal respiratory effort, lungs clear to auscultation Cardiovascular: RRR, S1-S2 Gastrointestinal (Abdomen): normal bowel sounds, soft, nontender, no hepatosplenomegaly Musculoskeletal: No pedal edema Skin: Clean dressing over right gluteal region Neurologic: PERRL, EOMI, accommodation nl, no face palsy, no dysarthria Psychiatric: A+Ox3, euthymic affect Results & Data Results & Data ([facility]) Vital Signs (Past 12 Hours) Vital Signs Temp Pulse Pulse Resp BP Pulse Ox Pulse Ox 04/07/21 07:55 37.1 C 87 20 97/59 L 95 04/07/21 07:00 88 04/07/21 04:19 36.8 C 92 H 18 110/63 95 04/07/21 04:00 95 04/07/21 00:00 93 H 04/06/21 21:49 37.1 C 94 H 18 104/64 91 Laboratory Results Abnormal lab results 04/06/21 04/06/21 04/06/21 Range/Units 15:11 15:11 17:25 RBC (4.2-5.4) M/uL Hgb (12.0-16.0) g/dL Hct (37-47) % RDW Std Deviation (36.4-46.3) fL Lymph # (Auto) (1.2-3.4) K/uL Immature Gran # (Auto) (0.00-0.02) K/uL Sodium (136-145) mmol/L Chloride (98-107) mmol/L Carbon Dioxide (21-32) mmol/L Anion Gap (3-11) BUN (7-18) mg/dl Creatinine (0.6-1.2) mg/dl POC Glucose 325 H* 330 H* 197 H (70-99) mg/dl Phosphorus (2.5-4.9) mg/dl 04/06/21 04/06/21 04/06/21 Range/Units 18:34 19:46 20:06 RBC (4.2-5.4) M/uL Hgb (12.0-16.0) g/dL Hct (37-47) % RDW Std Deviation (36.4-46.3) fL Lymph # (Auto) (1.2-3.4) K/uL Immature Gran # (Auto) (0.00-0.02) K/uL Sodium (136-145) mmol/L Chloride (98-107) mmol/L Carbon Dioxide (21-32) mmol/L Anion Gap (3-11) BUN (7-18) mg/dl Creatinine (0.6-1.2) mg/dl POC Glucose 175 H 132 H 139 H (70-99) mg/dl Phosphorus (2.5-4.9) mg/dl 04/06/21 04/06/21 04/06/21 Range/Units 20:26 21:30 22:34 RBC (4.2-5.4) M/uL Hgb (12.0-16.0) g/dL Hct (37-47) % RDW Std Deviation (36.4-46.3) fL Lymph # (Auto) (1.2-3.4) K/uL Immature Gran # (Auto) (0.00-0.02) K/uL Sodium (136-145) mmol/L Chloride (98-107) mmol/L Carbon Dioxide (21-32) mmol/L Anion Gap (3-11) BUN (7-18) mg/dl Creatinine (0.6-1.2) mg/dl POC Glucose 142 H 126 H 123 H (70-99) mg/dl Phosphorus (2.5-4.9) mg/dl 04/06/21 04/07/21 04/07/21 Range/Units 23:32 07:48 08:44 RBC 2.31 L (4.2-5.4) M/uL Hgb 7.1 L (12.0-16.0) g/dL Hct 22.0 L (37-47) % RDW Std Deviation 46.4 H (36.4-46.3) fL Lymph # (Auto) 0.94 L (1.2-3.4) K/uL Immature Gran # (Auto) 0.09 H (0.00-0.02) K/uL Sodium 134 L (136-145) mmol/L Chloride 97 L (98-107) mmol/L Carbon Dioxide 20 L (21-32) mmol/L Anion Gap 17.0 H (3-11) BUN 128 H (7-18) mg/dl Creatinine 7.40 H* (0.6-1.2) mg/dl POC Glucose 103 H (70-99) mg/dl Phosphorus 9.0 H (2.5-4.9) mg/dl (1) Acute renal failure Acute renal failure type: unspecified Qualified Code(s): N17.9 - Acute kidney failure, unspecified
--- NOTE | 2021-04-07 09:48 | Pharmacy Report ---
Pharmacy Glycemic Short Note 2 - Date of Service April 07, 2021 - Glycemic Short BSG Results (Last 24 hours): 04/06/21 04/06/21 04/06/21 11:50 11:51 15:11 Glucose POC Glucose 325 H* 326 H* 325 H* 04/06/21 04/06/21 04/06/21 15:11 17:25 18:34 Glucose POC Glucose 330 H* 197 H 175 H 04/06/21 04/06/21 04/06/21 19:46 20:06 20:26 Glucose POC Glucose 132 H 139 H 142 H 04/06/21 04/06/21 04/06/21 21:30 22:34 23:32 Glucose POC Glucose 126 H 123 H 103 H 04/07/21 04/07/21 04/07/21 00:00 00:30 01:28 Glucose POC Glucose 99 94 83 04/07/21 04/07/21 04/07/21 02:36 06:05 07:41 Glucose POC Glucose 85 75 90 04/07/21 07:48 Glucose 76 POC Glucose OUTPATIENT ANTIDIABETIC REGIMEN: * NPH 35 units SQ BID * NovoLog per scale * A1c still pending ASSESSMENT: 04/07 * Stressors stable. Patient remains NPO * Insulin drip has been off since 0000 with six BSG's ranging 75-99 since that time. A second dose of Lantus 20 units was administered at 0000 for a total of 40 units. OK to discontinue drip per Dr. Mcnamara. * Will hold off on additional Lantus temporarily 2nd lower BSG's and midnight Lantus staring to take effect. Will resume this evening at a lower daily dose. * Will start Novolog q4h at weight-based moderate stress estimate 04/06 * 55yo T2DM female with unknown degree of outpatient control. Ordered A1c with AM labs per protocol for 04/07/21 * Pt with moderate hyperglycemia on admission- now severe hyperglycemia secondary to illness/infection, mechanical ventilation, s/p OR for I&D, and basal insulin deficiency. No scheduled insulin ordered - just SSI on admission. * BSG > 219 x 2 --> will start IV insulin infusion per protocol. Hospitalist in agreement * Will start low dose basal insulin to cover baseline needs while NPO. Will use Lantus instead of outpatient NPH s/t NPO status. * Titrate based on BSG trends to maintain BSGs 140-180 mg/dl. PLAN FOR INPATIENT GLYCEMIC CONTROL: * Basal insulin * Lantus 10-30 units today@1999, based on BSG * Insulin infusion - discontinue * Bolus insulin * Novolog q4h while NPO * Goal range: 120-150 mg/dL * Correction factor: 20 mg/dL/unit * Carb ratio: 7 g CHO/unit PLAN FOR DISCHARGE: * TBD based on A1c
[2021-04-07 10:00] LABS: Estimated Average Glucose 114 mg/dl; Hemoglobin A1C 5.6 % (4.5-5.6)
--- NOTE | 2021-04-07 10:05 | Nephrology Progress Note ---
Date of Service April 07, 2021 Assessment & Plan Admission and Anticipated Discharge Date Admission Date: April 05, 2021 Subjective Assessment & Plan (1) Acute renal failure: Plan: slightly improved >> volume overload starting to emerge and she is not clearing well despite making > 1.5L urine; however no oliguria, chemistries acceptable today even better than yesterday w/ acidosis resolved. borderline febrile but no evidence todate of florid rhabdomyolysis -recheck bmp, hgb q 12-24 hrs. Improved labs today. No Dialysis. (2)CKD 5: Plan: not on chronic dialysis yet. Also creat and overall status improving so hopeful she wont need dialysis this admission. Creat down and BUN down and UO good. has LUE endovascular AVF - ready to use per OP notes but challenging to access based on exam by me and by alarm investigator. vascular to see her today. has better bruit/thrill today (3) Abscess, gluteal, right: Plan: s/p emergent I&D 04/05 now w/ packed/open wound and OR/vac placmement 04/06 -on zosyn alone now; initially on dapto, zosyn, clinda -f/u cxs (4) Neuroendocrine tumor: Plan: with spinal mets in C spine, L spine, T spine and primary focus R carotid sheath -may have extremely high pain mgt needs Admission and Anticipated Discharge Date Admission Date: April 05, 2021 Subjective borderline febrile since 1700 yesterday; pressor needs down, leukocytosis better, responds when sedation lightened, no increased 02 needs, bicarb gtt off; may be going back to OR today for vac placement Review of Systems Review of Systems: Unobtainable due to endotracheal tube Physical Exam Constitutional: well developed, well nourished, + obese and + mechanically ventilated; no acute distress Eyes: EOM intact bilaterally ENMT: Ears: no external ear abnormality Nose: no external nose abnormality Mouth: + dry oral mucous membranes Neck: no nuchal rigidity Respiratory: normal respiratory effort Auscultation: + diminished lung sounds Cardiovascular: Rate/Rhythm: regular rate and regular rhythm Heart Sounds: normal S1 and normal S2 Extremities: + edema (trace-1+ anasarca) and + AV fistula (L AC +bruit; thrill today w/ edema more difficult to isolate) Gastrointestinal (Abdomen): Inspection/Auscultation: normal bowel sounds Percussion/Palpation: abdomen soft; abdomen nontender Musculoskeletal: Extremities: strength 5/5 throughout Skin: no rashes, warm and dry Neurologic: sedated Genitourinary: woodruff > ample urine Results & Data ([facility]) Vital Signs (Past 12 Hours) Vital Signs Temp Pulse Pulse Resp BP Pulse Ox Pulse Ox 04/07/21 07:55 37.1 C 87 20 97/59 L 95 04/07/21 07:00 88 04/07/21 04:19 36.8 C 92 H 18 110/63 95 04/07/21 04:00 95 04/07/21 00:00 93 H
--- NOTE | 2021-04-07 11:34 | Consultation ---
Date of Consultation April 07, 2021 Assessment & Plan (1) ESRD (end stage renal disease): Pt with + thrill/bruit over LUE cephalic v avf, but appears small on US. Pt discussed with Dr Strong, recommends pt undergo LUE AVF fistulagram in OR on WEDNESDAY to eval further and possibly assist with maturation. Pt agreeable. Per nephrology notes, pt does not appear to need HD urgently at this time. Please call if pt requires a permcath for urgent HD. History of Present Illness Reason for Consultation: eval of L arm aVF Attending Physician: Anjana Mcnamara MD History of Present Illness 55 yo f with multiple medical problems, including HTN, CKD, DMII, hypothyroidism, admitted with gas gangrene of R gluteal abscess, seen in consultation today for maturation eval of her L arm endovascular AVF. Pt states she had the aVF created at [place], she thinks about 6 months ago. States they told her it would be usable by the time she needed it. Nephrology and HD nurses having trouble locating a point of access for the AVF. Pt admits general weakness and fatigue. Denies CHOW, fever, chest pain, SOB, abd pain, N/V, rest pain, claudication, other complaints. AVF US demonstrates patent but small LUE cephalic vein aVF. Allergies Allergy/AdvReac Type Severity Reaction Status Date / Time Iodinated Contrast Media AdvReac Severe Patient Verified 04/04/21 21:17 has kidney failure omeprazole AdvReac Severe Increased Verified 04/04/21 21:17 her acid reflux Home Medications Medication Instructions Recorded Confirmed Type cholecalciferol (vitamin D3) 125 125 mcg PO QAM 01/11/20 04/04/21 History mcg (5,000 unit) capsule furosemide 40 mg tablet (Lasix) 60 mg PO BID tab 01/11/20 04/04/21 History losartan 25 mg tablet 25 mg PO QAM 01/11/20 04/04/21 History amlodipine 10 mg tablet 10 mg PO QAM 03/15/21 04/04/21 History doxycycline hyclate 100 mg capsule 100 mg PO QAM 03/15/21 04/04/21 History glucagon 1 mg solution for 0 mg IM UD 03/15/21 04/04/21 History injection (Glucagon Emergency Kit) hydromorphone 4 mg tablet 4 mg PO Q6H PRN 03/15/21 04/04/21 History insulin NPH isoph U-100 human 100 35 unit SUBCUT BID 03/15/21 04/04/21 History unit/mL (3 mL) subcutaneous pen (Humulin N NPH U-100 Insulin KwikPen) insulin aspart U-100 100 unit/mL 1 sliding scale dose SUBCUT 03/15/21 04/04/21 History subcutaneous solution (Novolog USEASDIRECTD U-100 Insulin aspart) labetalol 100 mg tablet 100 mg PO BID 03/15/21 04/04/21 History levothyroxine 125 mcg tablet 125 mcg PO DAILYBB 03/15/21 04/04/21 History methadone 5 mg tablet 5 mg PO QPM 03/15/21 04/07/21 History gabapentin 100 mg capsule 200 mg PO TID 04/07/21 04/07/21 History Patient History Medical History Acid reflux Amputation of right great toe Anemia Diabetes Diabetic retinopathy ESRD (end stage renal disease) not on dialysis H/O vocal cord paralysis Right side Hypertension MRSA bacteremia 2017; unclear if vertebral or R diabetic foot wound source 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 Brother No problems noted. Sister Dialysis patient Kidney disease Daughter No problems noted. Daughter Diabetes Social History Smoking Status: Never smoker Second Hand Exposure: No; Hx Alcohol Use: No Hx Substance Use: No Preferred Language: Mongolian Communication Ability: Effective Visual Impairment: No Limitations Hearing Ability: Normal Medical Tech Required: No Beliefs That Will Affect Care: None marital status: Current Living Situation: Spouse current occupational status: disabled Feels Safe at Home: Yes caffeine: No during the past year weight has: remained stable Assistive Devices: Oxygen - Continuous Review of Systems Review of Systems: 14 systems reviewed and negative aside from HPI Physical Exam Constitutional: WD/WN, vitals as above + ill appearing, + obese, cooperative and comfortable; not in distress ENMT: Ears: no hearing impairment Neck: trachea midline Respiratory: normal respiratory effort; no respiratory distress Auscultation: + diminished lung sounds Cardiovascular: Rate/Rhythm: regular rate and regular rhythm Vessels: femoral pulses present, posterior tibial pulses present, dorsalis pedis pulses present and radial pulses present; + abnormal peripheral pulses Extremities: normal capillary refill, + edema and + AV fistula (LUE + thrill/bruit) Gastrointestinal (Abdomen): Inspection/Auscultation: abdomen normal to inspection and normal bowel sounds Percussion/Palpation: abdomen soft; abdomen nontender Musculoskeletal: no cyanosis or clubbing, extremities motor strength 5/5 Skin: no rashes, warm and dry Neurologic: moves all extremities and awake; no focal motor deficits and not confused Psychiatric: A+Ox3, euthymic affect Results & Data ([facility]) Vital Signs (Past 12 Hours) Vital Signs Temp Pulse Pulse Resp BP Pulse Ox Pulse Ox 04/07/21 11:10 36.7 C 93 H 20 116/67 94 04/07/21 07:55 37.1 C 87 20 97/59 L 95 04/07/21 07:00 88 04/07/21 04:19 36.8 C 92 H 18 110/63 95 04/07/21 04:00 95 04/07/21 00:00 93 H
[2021-04-07] MEDS ORDERED: HYDROmorphone HCL 2 MG TAB PO PRN (12:49)
[2021-04-07] MEDS: ACETAMINOPHEN 325 MG TAB PO SCH ×2 (13:35→18:18)
[2021-04-07] MEDS ORDERED: GABAPENTIN 100 MG CAP PO SCH (14:00)
[2021-04-07] MEDS ORDERED: INSULIN GLARGINE SOLOSTAR 100 UNITS/ML 3 ML PEN SC ONE (20:00)
[2021-04-07] MEDS: METHADONE HCL 5 MG TAB PO SCH (20:55)
[2021-04-07] MEDS ORDERED: POLYETHYLENE (MIRALAX) 17 GM PACK PO STA (21:14)
[2021-04-07] MEDS: HYDROmorphone INJ 0.5 MG/0.5 ML SYR IV PRN (23:26)
[2021-04-08] MEDS: INSULIN ASPART 100 UNITS/ML 3 ML PEN SC SCH ×6 (00:24→20:43)
[2021-04-08] MEDS: ACETAMINOPHEN 325 MG TAB PO SCH ×4 (00:26→17:45)
[2021-04-08] MEDS: HYDROmorphone HCL 2 MG TAB PO PRN ×3 (02:45→20:42)
[2021-04-08] MEDS: PIPERACILLIN/TAZOBACTAM 4.5 GM in DEXTROSE 5% 100 ML IV SCH ×2 (06:08→17:45)
[2021-04-08] MEDS: LEVOTHYROXINE SODIUM 125 MCG TABLET PO SCH (06:13)
[2021-04-08] MEDS: HYDROmorphone INJ 0.5 MG/0.5 ML SYR IV PRN ×2 (08:07→16:37)
[2021-04-08 08:11] LABS: Hematocrit (blood only) 25.3 % (37-47); Mean Corpuscular Hemoglobin 30.7 pg (25-34); Mean Corpuscular Hgb Conc 31.6 g/dL (32-36); Mean Corpuscular Volume 96.9 fL (80-100); Mean Platelet Volume 9.2 fL (7.4-10.4); Platelet Count 230 K/uL (130-400); RDW Coefficient of Variation 13.1 % (11.5-14.5); RDW Standard Deviation 46.5 fL (36.4-46.3); Red Blood Count 2.61 M/uL (4.2-5.4); White Blood Count 8.52 K/uL (4.8-10.8)
[2021-04-08] MEDS ORDERED: INSULIN GLARGINE SOLOSTAR 100 UNITS/ML 3 ML PEN SC ONE ×2 (08:30)
[2021-04-08 08:54] LABS: BUN Creatinine Ratio 18.6 (10-20); Calcium 9.9 mg/dl (8.5-10.1); Creatinine Clr Calc Pharmacy 11.9 ml/min; Est GFR (African American) 7.1 ml/min; Est GFR (Non-African American) 6.1 ml/min; Potassium 4.3 mmol/L (3.5-5.1)
--- NOTE | 2021-04-08 08:56 | Pharmacy Report ---
Pharmacy Glycemic Short Note 2 - Date of Service April 08, 2021 - Glycemic Short BSG Results (Last 24 hours): 04/07/21 04/07/21 04/07/21 07:48 11:05 16:28 Glucose 76 POC Glucose 89 100 H 04/07/21 04/07/21 04/08/21 20:20 23:53 04:10 Glucose POC Glucose 104 H 106 H 107 H 04/08/21 07:57 Glucose POC Glucose 122 H OUTPATIENT ANTIDIABETIC REGIMEN: * NPH 35 units SQ BID * NovoLog per scale * A1c 5.6% on 04/07/21 ASSESSMENT: 04/08 * Diet ordered yesterday * BSG's with very gradual trend up yesterday from 89 to 122 mg/dL over ~20 hours. OK to slightly increase Lantus today now that the significant dose reduction yesterday has taken effect * No change to Novolog - no bolus insulin administered yesterday to assess parameters 04/07 * Stressors stable. Patient remains NPO * Insulin drip has been off since 0000 with six BSG's ranging 75-99 since that time. A second dose of Lantus 20 units was administered at 0000 for a total of 40 units. OK to discontinue drip per Dr. Mcnamara. * Will hold off on additional Lantus temporarily 2nd lower BSG's and midnight Lantus staring to take effect. Will resume this evening at a lower daily dose. * Will start Novolog q4h at weight-based moderate stress estimate 04/06 * 55yo T2DM female with unknown degree of outpatient control. Ordered A1c with AM labs per protocol for 04/07/21 * Pt with moderate hyperglycemia on admission- now severe hyperglycemia secondary to illness/infection, mechanical ventilation, s/p OR for I&D, and basal insulin deficiency. No scheduled insulin ordered - just SSI on admission. * BSG > 219 x 2 --> will start IV insulin infusion per protocol. Hospitalist in agreement * Will start low dose basal insulin to cover baseline needs while NPO. Will use Lantus instead of outpatient NPH s/t NPO status. * Titrate based on BSG trends to maintain BSGs 140-180 mg/dl. PLAN FOR INPATIENT GLYCEMIC CONTROL: * Basal insulin * Lantus 15 units x1 this AM with additional 5-15 units at HS based on BSG * Bolus insulin * Novolog ACHS or q6h if NPO * Goal range: 110-140 mg/dL * Correction factor: 20 mg/dL/unit * Carb ratio: 7 g CHO/unit PLAN FOR DISCHARGE: * TBD
--- NOTE | 2021-04-08 11:22 | Nephrology Progress Note ---
Date of Service April 08, 2021 Assessment & Plan Admission and Anticipated Discharge Date Admission Date: April 05, 2021 Subjective Subjective Assessment & Plan (1) Acute renal failure: (2)CKD 5: Plan: not on chronic dialysis yet. Also creat and overall status improving so hopeful she wont need dialysis this admission. Creat down rising UO good. has LUE endovascular AVF - ready to use per OP notes but challenging to access based on exam by me and by manager commercial real estate. vascular saw her yesterday. She has better bruit/thrill after higher BP. Creat coming down but BUN same--not unusual in resolving ARF. (3) Abscess, gluteal, right: Plan: s/p emergent I&D 04/05 now w/ packed/open wound and OR/vac placement 04/06 blood C/s Still negative (4) Neuroendocrine tumor: Plan: with spinal mets in C spine, L spine, T spine and primary focus R carotid sheath -may have extremely high pain mgt needs Subjective No new issues. getting better. Off vent and pressors. Increased urine also. Review of Systems Review of Systems: Unobtainable due to endotracheal tube Physical Exam Constitutional: well developed, well nourished, + obese and + mechanically ventilated; no acute distress Eyes: EOM intact bilaterally ENMT: Ears: no external ear abnormality Nose: no external nose abnormality Mouth: + dry oral mucous membranes Neck: no nuchal rigidity Respiratory: normal respiratory effort Auscultation: + diminished lung sounds Cardiovascular: Rate/Rhythm: regular rate and regular rhythm Heart Sounds: normal S1 and normal S2 Extremities: + edema (trace-1+ anasarca) and + AV fistula (L AC +bruit; thrill today w/ edema more difficult to isolate) Gastrointestinal (Abdomen): Inspection/Auscultation: normal bowel sounds Percussion/Palpation: abdomen soft; abdomen nontender Musculoskeletal: Extremities: strength 5/5 throughout Skin: no rashes, warm and dry Neurologic: sedated Genitourinary: woodruff > ample urine Results & Data ([facility]) Vital Signs (Past 12 Hours) Vital Signs Temp Pulse Pulse Resp BP BP Pulse Ox 04/08/21 10:59 36.6 C 102 H 18 115/69 96 04/08/21 08:00 94 H 04/08/21 07:32 36.9 C 95 H 18 134/70 97 04/08/21 04:00 04/08/21 02:47 36.6 C 95 H 18 129/68 91 04/08/21 00:51 86 04/07/21 23:56 36.5 C 85 18 100/64 97 Pulse Ox 04/08/21 10:59 04/08/21 08:00 04/08/21 07:32 04/08/21 04:00 97 04/08/21 02:47 04/08/21 00:51 04/07/21 23:56
[2021-04-08] MEDS ORDERED: INSULIN ASPART 100 UNITS/ML 3 ML PEN SC SCH (11:30)
--- NOTE | 2021-04-08 11:42 | Hospitalist Progress Note ---
Date of Service April 08, 2021 Assessment & Plan (1) Abscess, gluteal, right: (2) Gas gangrene: (3) Acute renal failure: (4) ESRD (end stage renal disease): Plan: Right gluteal abscess, gas forming, necrotizing abscess Sepsis status emergent incision and drainage by surgeon on 04/05/21 and 04/06/21 Extubated on 04/06/21 Wound management per wound care and surgeon Currently zosyn only. Was initially on dapto, zosyn and clindamycin on admission. If still no growth tomorrow, plan to deescalate UCx growing E coli Other cultures no growth so far Pain control Diabetes mellitus Blood glucose better controlled Continue insulin regimen sq Hypertension: Required pressors while intubated BP currently normal Continue to hold home labetalol, Losartan, and amlodipine. Plan to resume as appropriate once BP starts going up Chronic pain: On methadone and hydromorphone at home Dose confirmed on PDMP Continue home methadone Continue hydromorphine at 2mg q6h prn. Was on 4mg recently per PDMP Acute on Chronic kidney disease stage V: Metabolic acidosis Acidosis resolved Based on labs today. No indication for HD today Sales Agent [employer] eval and recommendations noted. Vascular consulted to assess AVF. NPO PMN for vascular eval tomorrow History of neuroendocrine tumor involving the cervical spine. 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 She received radiation therapy to the neck area. Follow up with hem/onc. Deep venous thrombosis prophylaxis: Currently on sequential compression devices. 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 Carrizales. Patient was extubated yesterday and transferred from ICU. Patient had MARK ANTHONY on CKD 5 with acidosis on admission. Required bicarb drip briefly Patient seen and examined today Reports only surgical site pain. Denies any headache, dizziness, cough, shortness of breath Denies nausea, vomiting abdominal pain, diarrhea Physical Exam Constitutional: + well hydrated and + obese; no acute distress Eyes: PERRL, conjunctivae normal, anicteric sclerae Respiratory: normal respiratory effort, lungs clear to auscultation Gastrointestinal (Abdomen): normal bowel sounds, soft, nontender, no hepatosplenomegaly Skin: Dressing over surgical site Neurologic: PERRL, EOMI, accommodation nl, no face palsy, no dysarthria Psychiatric: A+Ox3, euthymic affect Genitourinary: woodruff in situ Results & Data Results & Data ([facility]) Vital Signs (Past 12 Hours) Vital Signs Temp Pulse Pulse Resp BP BP Pulse Ox 04/08/21 10:59 36.6 C 102 H 18 115/69 96 04/08/21 08:00 94 H 04/08/21 07:32 36.9 C 95 H 18 134/70 97 04/08/21 04:00 04/08/21 02:47 36.6 C 95 H 18 129/68 91 04/08/21 00:51 86 04/07/21 23:56 36.5 C 85 18 100/64 97 Pulse Ox 04/08/21 10:59 04/08/21 08:00 04/08/21 07:32 04/08/21 04:00 97 04/08/21 02:47 04/08/21 00:51 04/07/21 23:56 Laboratory Results Abnormal lab results 04/07/21 04/07/21 04/07/21 Range/Units 16:28 20:20 23:53 RBC (4.2-5.4) M/uL Hgb (12.0-16.0) g/dL Hct (37-47) % MCHC (32-36) g/dL RDW Std Deviation (36.4-46.3) fL Carbon Dioxide (21-32) mmol/L Anion Gap (3-11) BUN (7-18) mg/dl Creatinine (0.6-1.2) mg/dl Glucose (70-99) mg/dl POC Glucose 100 H 104 H 106 H (70-99) mg/dl 04/08/21 04/08/21 04/08/21 Range/Units 01:07 04:10 07:52 RBC 2.61 L (4.2-5.4) M/uL Hgb 8.0 L (12.0-16.0) g/dL Hct 25.3 L (37-47) % MCHC 31.6 L (32-36) g/dL RDW Std Deviation 46.5 H (36.4-46.3) fL Carbon Dioxide 20 L (21-32) mmol/L Anion Gap 17.0 H (3-11) BUN 130 H (7-18) mg/dl Creatinine 6.93 H* D (0.6-1.2) mg/dl Glucose 117 H (70-99) mg/dl POC Glucose 107 H (70-99) mg/dl 04/08/21 04/08/21 04/08/21 Range/Units 07:57 11:41 16:19 RBC (4.2-5.4) M/uL Hgb (12.0-16.0) g/dL Hct (37-47) % MCHC (32-36) g/dL RDW Std Deviation (36.4-46.3) fL Carbon Dioxide (21-32) mmol/L Anion Gap (3-11) BUN (7-18) mg/dl Creatinine (0.6-1.2) mg/dl Glucose (70-99) mg/dl POC Glucose 122 H 166 H 187 H (70-99) mg/dl (1) Acute renal failure Acute renal failure type: unspecified Qualified Code(s): N17.9 - Acute kidney failure, unspecified
--- NOTE | 2021-04-08 13:11 | Surgery Progress Note ---
Date of Service April 08, 2021 Assessment & Plan (1) Acute renal failure: (2) Abscess, gluteal, right: (3) Gas gangrene: (4) Acute dehydration: Plan: Postop day 4 and 2 status post debridement of gluteal necrotizing infection/abscess. -afebrile, vitals stable - wound vac placed yesterday but contaminated with loose bowel movement last night. Wound care per wound nurse. Attempt at replacement of wound vac? - tolerating diet - pain controlled Plan: Continue home oral pain medication regimen continue diet continue antibiotics wound care per wound nurses if vac can be attempted again?? Dr. Perkins has seen and was present during my examination and agrees with above. Admission and Anticipated Discharge Date Admission Date: April 05, 2021 Subjective pain is slowly improving, not as bad as a few days ago no fevers or chills tolerating diet without nausea had loose bm last night which soiled wound vac and wound vac removed, wound nurses coming this afternoon Physical Exam Constitutional: WD/WN, vitals as above no acute distress Respiratory: normal respiratory effort; no respiratory distress and no labored breathing Gastrointestinal (Abdomen): Right gluteal wound with healthy granulation tissue at base, no necrosis. surrounding erythema stable/improving. Skin: no rashes, warm and dry Results & Data ([facility]) Vital Signs (Past 12 Hours) Vital Signs Temp Pulse Pulse Resp BP BP Pulse Ox 04/08/21 10:59 36.6 C 102 H 18 115/69 96 04/08/21 08:00 94 H 04/08/21 07:32 36.9 C 95 H 18 134/70 97 04/08/21 04:00 04/08/21 02:47 36.6 C 95 H 18 129/68 91 Pulse Ox 04/08/21 10:59 04/08/21 08:00 04/08/21 07:32 04/08/21 04:00 97 04/08/21 02:47 Laboratory Results 04/08/21 04/08/21 04/08/21 Range/Units 11:41 07:57 07:52 WBC (4.8-10.8) K/uL RBC (4.2-5.4) M/uL Hgb (12.0-16.0) g/dL Hct (37-47) % MCV (80-100) fL MCH (25-34) pg MCHC (32-36) g/dL RDW Std Deviation (36.4-46.3) fL RDW Coeff of Padmini (11.5-14.5) % Plt Count (130-400) K/uL MPV (7.4-10.4) fL Sodium 137 (136-145) mmol/L Potassium 4.3 D (3.5-5.1) mmol/L Chloride 100 (98-107) mmol/L Carbon Dioxide 20 L (21-32) mmol/L Anion Gap 17.0 H (3-11) BUN 130 H (7-18) mg/dl Creatinine 6.93 H* D (0.6-1.2) mg/dl Est Cr Clr Drug Dosing 11.9 ml/min Est GFR ( Amer) 7.1 ml/min Est GFR (Non-Af Amer) 6.1 ml/min BUN/Creatinine Ratio 18.6 (10-20) Glucose 117 H (70-99) mg/dl POC Glucose 166 H 122 H (70-99) mg/dl Calcium 9.9 (8.5-10.1) mg/dl 04/08/21 04/08/21 04/07/21 Range/Units 04:10 01:07 23:53 WBC 8.52 (4.8-10.8) K/uL RBC 2.61 L (4.2-5.4) M/uL Hgb 8.0 L (12.0-16.0) g/dL Hct 25.3 L (37-47) % MCV 96.9 (80-100) fL MCH 30.7 (25-34) pg MCHC 31.6 L (32-36) g/dL RDW Std Deviation 46.5 H (36.4-46.3) fL RDW Coeff of Padmini 13.1 (11.5-14.5) % Plt Count 230 (130-400) K/uL MPV 9.2 (7.4-10.4) fL Sodium (136-145) mmol/L Potassium (3.5-5.1) mmol/L Chloride (98-107) mmol/L Carbon Dioxide (21-32) mmol/L Anion Gap (3-11) BUN (7-18) mg/dl Creatinine (0.6-1.2) mg/dl Est Cr Clr Drug Dosing ml/min Est GFR ( Amer) ml/min Est GFR (Non-Af Amer) ml/min BUN/Creatinine Ratio (10-20) Glucose (70-99) mg/dl POC Glucose 107 H 106 H (70-99) mg/dl Calcium (8.5-10.1) mg/dl 04/07/21 04/07/21 Range/Units 20:20 16:28 WBC (4.8-10.8) K/uL RBC (4.2-5.4) M/uL Hgb (12.0-16.0) g/dL Hct (37-47) % MCV (80-100) fL MCH (25-34) pg MCHC (32-36) g/dL RDW Std Deviation (36.4-46.3) fL RDW Coeff of Padmini (11.5-14.5) % Plt Count (130-400) K/uL MPV (7.4-10.4) fL Sodium (136-145) mmol/L Potassium (3.5-5.1) mmol/L Chloride (98-107) mmol/L Carbon Dioxide (21-32) mmol/L Anion Gap (3-11) BUN (7-18) mg/dl Creatinine (0.6-1.2) mg/dl Est Cr Clr Drug Dosing ml/min Est GFR ( Amer) ml/min Est GFR (Non-Af Amer) ml/min BUN/Creatinine Ratio (10-20) Glucose (70-99) mg/dl POC Glucose 104 H 100 H (70-99) mg/dl Calcium (8.5-10.1) mg/dl Microbiology 04/05/21 01:50 Gram Stain - Final Buttock,Right Aerobic and Anaerobic Culture - Preliminary Moderate counts mixed probable skin microbiota. 04/05/21 Unknown Urine Culture - Final Urine,Clean Catch Escherichia coli (1) Acute renal failure Acute renal failure type: unspecified Qualified Code(s): N17.9 - Acute kidney failure, unspecified
[2021-04-08] MEDS ORDERED: predniSONE 50 MG TAB PO SCH (18:00)
[2021-04-08] MEDS: INSULIN GLARGINE SOLOSTAR 100 UNITS/ML 3 ML PEN SC SCH (20:44)
[2021-04-08] MEDS: METHADONE HCL 5 MG TAB PO SCH (21:31)
[2021-04-09] MEDS: ACETAMINOPHEN 325 MG TAB PO SCH ×4 (00:34→17:13)
[2021-04-09] MEDS: HYDROmorphone INJ 0.5 MG/0.5 ML SYR IV PRN ×3 (04:51→23:30)
[2021-04-09] MEDS: PIPERACILLIN/TAZOBACTAM 4.5 GM in DEXTROSE 5% 100 ML IV SCH ×2 (05:09→17:13)
[2021-04-09] MEDS: LEVOTHYROXINE SODIUM 125 MCG TABLET PO SCH (05:10)
[2021-04-09 07:58] LABS: Hemoglobin 7.9 g/dL (12.0-16.0); Mean Corpuscular Hemoglobin 30.3 pg (25-34); Mean Corpuscular Hgb Conc 31.6 g/dL (32-36); Mean Corpuscular Volume 95.8 fL (80-100); Mean Platelet Volume 9.3 fL (7.4-10.4); Platelet Count 268 K/uL (130-400); RDW Coefficient of Variation 13.2 % (11.5-14.5); RDW Standard Deviation 46.3 fL (36.4-46.3); Red Blood Count 2.61 M/uL (4.2-5.4); White Blood Count 7.45 K/uL (4.8-10.8)
[2021-04-09 08:37] LABS: Calcium 10.2 mg/dl (8.5-10.1); Creatinine Clr Calc Pharmacy 12.6 ml/min; Est GFR (African American) 7.9 ml/min; Est GFR (Non-African American) 6.8 ml/min; Potassium 3.8 mmol/L (3.5-5.1)
[2021-04-09] MEDS: INSULIN ASPART 100 UNITS/ML 3 ML PEN SC SCH ×4 (08:38→19:55)
[2021-04-09] MEDS: HYDROmorphone HCL 2 MG TAB PO PRN ×3 (08:40→20:58)
--- NOTE | 2021-04-09 09:14 | Nephrology Progress Note ---
Date of Service April 09, 2021 Assessment & Plan Admission and Anticipated Discharge Date Admission Date: April 05, 2021 Subjective Assessment & Plan (1) Acute renal failure: (2)CKD 5: Plan: not on chronic dialysis yet. Also creat and overall status improving so hopeful she wont need dialysis this admission. Creat down rising UO good. has LUE endovascular AVF - ready to use per OP notes but challenging to access based on exam by me and by pipe line repairer. vascular saw her yesterday. She has better bruit/thrill after higher BP. Creat coming down but BUN not as fast--not unusual in resolving ARF. u.o rising daily. Given Ongoing issues with gluteal abscess/ infection risk of doing dialysis at this very moment is high with infection. Does not need today. (3) Abscess, gluteal, right: Plan: s/p emergent I&D 04/05 now w/ packed/open wound and OR/vac placement 04/06 blood C/s Still negative. Ongoing issues with fecal contamination and so on. 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 getting better. Wound vac issues with fecal soiling. Increased urine also. Review of Systems Review of Systems: Unobtainable due to endotracheal tube Physical Exam Constitutional: well developed, well nourished, + obese and + mechanically ventilated; no acute distress Eyes: EOM intact bilaterally ENMT: Ears: no external ear abnormality Nose: no external nose abnormality Mouth: + dry oral mucous membranes Neck: no nuchal rigidity Respiratory: normal respiratory effort Auscultation: + diminished lung sounds Cardiovascular: Rate/Rhythm: regular rate and regular rhythm Heart Sounds: normal S1 and normal S2 Extremities: + edema (trace-1+ anasarca) and + AV fistula (L AC +bruit; thrill today w/ edema more difficult to isolate) Gastrointestinal (Abdomen): Inspection/Auscultation: normal bowel sounds Percussion/Palpation: abdomen soft; abdomen nontender Musculoskeletal: Extremities: strength 5/5 throughout Skin: no rashes, warm and dry Neurologic: sedated Genitourinary: ample urine Results & Data ([facility]) Vital Signs (Past 12 Hours) Vital Signs Temp Pulse Pulse Resp BP BP Pulse Ox 04/09/21 07:48 88 04/09/21 07:45 36.6 C 93 H 12 142/82 H 96 04/09/21 04:39 36.6 C 96 H 18 150/72 H 95 04/09/21 01:15 85 04/08/21 23:04 36.6 C 87 18 126/71 92
[2021-04-09] MEDS ORDERED: diphenhydrAMINE Capsule 25 MG CAP PO ONE (10:00)
--- NOTE | 2021-04-09 11:34 | History & Physical Bridge Note ---
Date of Service April 09, 2021 History & Physical Bridge Note I have examined the patient, reviewed the History & Physical and in the interval since the performance of the History & Physical I have noted the following changes of clinical significance: no changes noted
[2021-04-09] MEDS ORDERED: fentaNYL citrate 100 MCG/2 ML VIAL ONE ×2 (11:49→12:19)
[2021-04-09] MEDS ORDERED: MIDAZOLAM HCL 1 MG/ML 2ML VIAL ONE ×2 (11:49→12:19)
--- NOTE | 2021-04-09 12:58 | Pre Anesthesia Assessment ---
Date of Service April 09, 2021 Pre Sedation Assessment Vital Signs Temp Pulse Pulse Resp BP BP Pulse Ox 04/09/21 12:53 98 H 20 149/81 H 100 04/09/21 12:48 99 H 20 151/78 H 100 04/09/21 12:43 97 H 20 154/81 H 100 04/09/21 12:38 99 H 20 159/79 H 100 04/09/21 12:33 106 H 20 171/99 H 100 04/09/21 12:28 106 H 20 166/72 H 100 04/09/21 12:23 105 H 20 175/69 H 100 04/09/21 12:18 107 H 20 175/83 H 100 04/09/21 12:13 109 H 20 175/84 H 100 04/09/21 12:08 109 H 20 165/81 H 100 04/09/21 12:07 110 H 20 176/103 H 100 04/09/21 11:49 36.7 C 103 H 20 171/98 H 97 04/09/21 11:00 36.5 C 97 H 13 145/76 H 94 04/09/21 07:48 88 04/09/21 07:45 36.6 C 93 H 12 142/82 H 96 04/09/21 04:39 36.6 C 96 H 18 150/72 H 95 04/09/21 01:15 85 04/08/21 23:04 36.6 C 87 18 126/71 92 04/08/21 19:47 36.5 C 101 H 18 151/72 H 94 04/08/21 15:30 88 04/08/21 15:26 36.5 C 96 H 18 144/73 H 93 Cardiovascular RRR, no murmur, no edema Respiratory normal respiratory effort, lungs clear to auscultation Pre-Sedation Airway Assessment Smoking Status: Never smoker Hx Sleep Apnea: No Short, Thick Neck: Yes Thyromental Distance: > or= 3.5 Finger Breadths Oral Cavity: + Dentures Mallampati Class: II ASA: ASA4 NPO Status Date of Last Intake of Fluids: 04/09/21 Time of Last Intake of Fluids: 07:00 Last Oral Intake of Fluids Comment: sips with meds Date of Last Intake of Solid Food: 04/08/21 Time of Last Intake of Solid Foods: 18:00 Procedure Planning Contraindications for Sedation: none Current Medications Reviewed: Yes Notes The planned sedation has been discussed with the patient. Informed Consent was obtained. I have identified the patient, determined the appropriateness of sedation and have assessed the patient immediately prior to the procedure. All medicine(s) and interventions are by my order.
[2021-04-09] MEDS ORDERED: VISIPAQUE IV PRN (12:59)
[2021-04-09] MEDS ORDERED: LIDOCAINE 1% LOCAL 20 ML VIAL INJ ONE (13:00)
--- NOTE | 2021-04-09 13:10 | Post Anesthesia Assessment ---
Date of Service April 09, 2021 Post Sedation Assessment Vital Signs Temp Pulse Pulse Resp BP BP Pulse Ox 04/09/21 13:03 99 H 20 155/83 H 100 04/09/21 12:58 98 H 20 141/77 H 100 04/09/21 12:53 98 H 20 149/81 H 100 04/09/21 12:48 99 H 20 151/78 H 100 04/09/21 12:43 97 H 20 154/81 H 100 04/09/21 12:38 99 H 20 159/79 H 100 04/09/21 12:33 106 H 20 171/99 H 100 04/09/21 12:28 106 H 20 166/72 H 100 04/09/21 12:23 105 H 20 175/69 H 100 04/09/21 12:18 107 H 20 175/83 H 100 04/09/21 12:13 109 H 20 175/84 H 100 04/09/21 12:08 109 H 20 165/81 H 100 04/09/21 12:07 110 H 20 176/103 H 100 04/09/21 11:49 36.7 C 103 H 20 171/98 H 97 04/09/21 11:00 36.5 C 97 H 13 145/76 H 94 04/09/21 07:48 88 04/09/21 07:45 36.6 C 93 H 12 142/82 H 96 04/09/21 04:39 36.6 C 96 H 18 150/72 H 95 04/09/21 01:15 85 04/08/21 23:04 36.6 C 87 18 126/71 92 04/08/21 19:47 36.5 C 101 H 18 151/72 H 94 04/08/21 15:30 88 04/08/21 15:26 36.5 C 96 H 18 144/73 H 93 Recovery Score Activity: Moves 4 extremities Respiration: Deep Breath/Cough Circulation: +/-20% PreAnes Value Consciousness: Fully Awake Oxygen Saturation: > 92% On Room Air Post Anesthesia Score: 10 Discharge Sedation Level of Care: Fast Track Phase II Post Sedation Plan On clinical assessment, the patient appears to have tolerated the sedation without complications. Patient is recovering as anticipated. Patient will continue to be monitored by nursing and may be discharged when sedation discharge criteria are met per below protocol. Upon Completions of procedure up to 15 minutes continue every 5 minute vital signs and the P.A.R. score; then discharge to a Phase I or Fast Track to Phase II per the following guidelines: * Discharge Patient to appropriate Phase II area if PAR is 8 or greater or return to pre- procedure baseline. The post - procedure orders will be as directed. * If PAR score is less than 8 or not return to pre-procedure baseline then patient will follow Phase I monitoring till PAR is reached for Phase II. The Phase I may be done in procedure room or may call to secure a Phase I area. * If naloxone or flumazenil are used for reversal, hold in Phase I for continued monitoring from when last reversal dose was given for a minimum of 60 minutes or longer pending the nurse and/or physician discretion of patient condition before discharge to Phase II. Please call the Sedation Physician to re-evaluate and complete post-note for discharge to Phase II area. Do NOT discharge from procedure sedation or Phase 1 until post- sedation evaluation note is complete by procedure /sedation MD Sedation Discharge Instructions to be given to the patient at discharge to home.
--- NOTE | 2021-04-09 13:10 | Operative Report ---
Post Operative Report Pre & Post Diagnosis Operation Date: 04/04/21 23:30 Pre-Op Diagnosis: Right Gluteal Abscess Post-Op Diagnosis: Right Gluteal Abscess Operation Date: 04/06/21 12:30 Pre-Op Diagnosis: Right Buttock Wound Post-Op Diagnosis: Right Buttock Wound Operation Date: 04/09/21 12:10 Pre-Op Diagnosis: non functioning fistula Post-Op Diagnosis: non functioning fistula I identified the patient and participated in the time-out.: Yes Procedure Operation Date: 04/04/21 23:30 Actual Procedures p Incision and Drainage of Right Gluteal Abscess(Right) - Mateusz Carrizales MD Operation Date: 04/06/21 12:30 Actual Procedures p Right Buttock Wound Debridement and Dressing Change(Right) - Mateusz Carrizales MD Operation Date: 04/09/21 12:10 Actual Procedures p Left Arm Fistulogram, Ultrasound localization of the ulnar artery, Percutaneous transluminal angioplasty venous, moderate sedation time 1208- 1303(Left) - Rigo Strong MD Surgeon Rigo Strong MD Bowling [employer] Grader none Estimated Blood Loss 5 Findings Consistent with Post-Op Diagnosis Specimens none Anesthesia Type RN Sedation Complications none Disposition Accompanied Patient To Recovery: No Disposition: Recovery Room Indications This is a 55-year-old female who had a left arm percutaneous endovascular fistula creation in September. The cephalic vein has not matured. A fistulogram with possible intervention was recommended. I have discussed the risks options and benefits of the procedure with the patient. The patient understands the risks options and benefits and agrees to the procedure. Description of Procedure The patient was taken to the angiogram suite and placed in the supine position. The left arm was then prepped and draped in a sterile manner. The patient was identified and a timeout performed. Local anesthetic was administered and a percutaneous puncture was then made of ulnar artery at the wrist using micropuncture technique. The ultrasound of the ulnar artery showed it to have mild calcifications. It was patent. Micropuncture wire and sheath were then inserted. Wire was inserted through the sheath and passed up into the proximal brachial artery. A short Kumpe catheter was inserted into this location a fistulogram was performed. This showed a patent percutaneous fistula anastomosis. The basilic vein was large with good flow. The cephalic vein was not visualized. There was a small area which appeared to have a stump on the median cubital vein. 035 wire was then passed. Using the Kumpe catheter and the 035 wire this area was cannulated. The Kumpe was advanced up into the mid arm. Injection done at that area showed the Kumpe catheter to be in the cephalic vein in the upper arm. We then inserted an 014 wire. We exchanged the Kumpe for a 4 x 200 [place] 14 balloon. We then did a balloon maturation of the cephalic vein from its proximal portion distally. There were 2 areas of narrowing noted which expanded nicely in the cephalic vein in the midportion of the proximal portion. We then exchanged the 4 mm balloon to a 5 mm x 100 [place] balloon. The cephalic vein was then ballooned in its entirety again. Completion fistulogram showed the cephalic vein down to be patent but still fairly small on its size. There was however a thrill in the fistula and good Doppler signals heard up to the mid arm. No further intervention was done at this time. This patient may need a basilic vein transposition if the cephalic vein is not mature. The sheath was then pulled and pressure was applied. Adequate hemostasis was obtained. The patient left the angiogram suite in good condition and tolerated the procedure well. I attest to the content of the Intraoperative Record and any orders documented therein. Any exceptions are noted below.
--- NOTE | 2021-04-09 15:37 | Surgery Progress Note ---
Date of Service April 09, 2021 Assessment & Plan (1) Abscess, gluteal, right: (2) Gas gangrene: Plan: POD # 3 and 5 s/p I&D of right gluteal necrotizing abscess -afebrile, vss - no leukocytosis - wound with granulation tissue, no necrosis, some fibrinous tissue present Plan: Patient states wound vac would not be able to to be continuously applied if soiled after bowel movements so wound care was not going to replace. However , in speaking with Farida Ponce wound care nurse, she said patient declined wound vac placement. Given close proximity to anus, wound vac may not stay sealed after bowel movements. Recommend aquacel ag in wound with optifoam dressing. She will need home health and wound care follow-up. Will update Dr. Carrizales. will continue to follow Admission and Anticipated Discharge Date Admission Date: April 05, 2021 Subjective pain at right buttock is improving slowly main complaint is leg pain no nausea or vomiting states that the wound vac would have to be continuously taken off and replaced if contaminated with stool. She said wound vac nurse said they would not be able to replace. Spoke with Farida Ponce who said patient declined replacement of wound vac. Physical Exam Constitutional: no acute distress and not ill appearing Respiratory: normal respiratory effort; no respiratory distress, no labored breathing and no retractions Gastrointestinal (Abdomen): Right gluteal wound with surrounding mild erythema of skin. Wound with fibrinous exudate present once aquacel ag removed. No necrosis identified, healthy granulation tissue present. External nylon sutures intact. Skin: no rashes, warm and dry Psychiatric: Orientation: alert and oriented x 3 Results & Data ([facility]) Vital Signs (Past 12 Hours) Vital Signs Temp Pulse Pulse Resp BP BP Pulse Ox 04/09/21 14:56 36.5 C 105 H 15 144/81 H 95 04/09/21 14:15 72 132/68 04/09/21 13:59 36.6 C 102 H 15 140/77 98 04/09/21 13:35 78 142/70 H 04/09/21 13:16 36.8 C 68 18 138/76 95 04/09/21 13:03 99 H 20 155/83 H 100 04/09/21 12:58 98 H 20 141/77 H 100 04/09/21 12:53 98 H 20 149/81 H 100 04/09/21 12:48 99 H 20 151/78 H 100 04/09/21 12:43 97 H 20 154/81 H 100 04/09/21 12:38 99 H 20 159/79 H 100 04/09/21 12:33 106 H 20 171/99 H 100 04/09/21 12:28 106 H 20 166/72 H 100 04/09/21 12:23 105 H 20 175/69 H 100 04/09/21 12:18 107 H 20 175/83 H 100 04/09/21 12:13 109 H 20 175/84 H 100 04/09/21 12:08 109 H 20 165/81 H 100 04/09/21 12:07 110 H 20 176/103 H 100 04/09/21 11:49 36.7 C 103 H 20 171/98 H 97 04/09/21 11:00 36.5 C 97 H 13 145/76 H 94 04/09/21 07:48 88 04/09/21 07:45 36.6 C 93 H 12 142/82 H 96 04/09/21 04:39 36.6 C 96 H 18 150/72 H 95 Laboratory Results 04/09/21 04/09/21 04/09/21 Range/Units 11:55 07:40 07:24 WBC (4.8-10.8) K/uL RBC (4.2-5.4) M/uL Hgb (12.0-16.0) g/dL Hct (37-47) % MCV (80-100) fL MCH (25-34) pg MCHC (32-36) g/dL RDW Std Deviation (36.4-46.3) fL RDW Coeff of Padmini (11.5-14.5) % Plt Count (130-400) K/uL MPV (7.4-10.4) fL Sodium 140 (136-145) mmol/L Potassium 3.8 (3.5-5.1) mmol/L Chloride 104 (98-107) mmol/L Carbon Dioxide 21 (21-32) mmol/L Anion Gap 15.0 H (3-11) BUN 114 H (7-18) mg/dl Creatinine 6.35 H* D (0.6-1.2) mg/dl Est Cr Clr Drug Dosing 12.6 ml/min Est GFR ( Amer) 7.9 ml/min Est GFR (Non-Af Amer) 6.8 ml/min BUN/Creatinine Ratio 18.0 (10-20) Glucose 137 H (70-99) mg/dl POC Glucose 131 H 124 H (70-99) mg/dl Calcium 10.2 H (8.5-10.1) mg/dl 04/09/21 04/08/21 04/08/21 Range/Units 07:24 20:36 16:19 WBC 7.45 (4.8-10.8) K/uL RBC 2.61 L (4.2-5.4) M/uL Hgb 7.9 L (12.0-16.0) g/dL Hct 25.0 L (37-47) % MCV 95.8 (80-100) fL MCH 30.3 (25-34) pg MCHC 31.6 L (32-36) g/dL RDW Std Deviation 46.3 (36.4-46.3) fL RDW Coeff of Padmini 13.2 (11.5-14.5) % Plt Count 268 (130-400) K/uL MPV 9.3 (7.4-10.4) fL Sodium (136-145) mmol/L Potassium (3.5-5.1) mmol/L Chloride (98-107) mmol/L Carbon Dioxide (21-32) mmol/L Anion Gap (3-11) BUN (7-18) mg/dl Creatinine (0.6-1.2) mg/dl Est Cr Clr Drug Dosing ml/min Est GFR ( Amer) ml/min Est GFR (Non-Af Amer) ml/min BUN/Creatinine Ratio (10-20) Glucose (70-99) mg/dl POC Glucose 171 H 187 H (70-99) mg/dl Calcium (8.5-10.1) mg/dl
[2021-04-09] MEDS: DICLOFENAC SOD 1% GEL 100 GM TUBE EXT PRN (18:04)
[2021-04-09] MEDS ORDERED: MELATONIN 3 MG TAB PO PRN (19:20)
[2021-04-09] MEDS: METHADONE HCL 5 MG TAB PO SCH (19:54)
[2021-04-09] MEDS: INSULIN GLARGINE SOLOSTAR 100 UNITS/ML 3 ML PEN SC SCH (19:56)
--- NOTE | 2021-04-09 20:14 | Hospitalist Progress Note ---
Date of Service April 09, 2021 Assessment & Plan (1) Abscess, gluteal, right: (2) Gas gangrene: (3) Acute renal failure: (4) ESRD (end stage renal disease): Plan: Right gluteal abscess, gas forming, necrotizing abscess Sepsis UTI-POA S/P Incision and drainage by surgeon on 04/05/21 and 04/06/21 Extubated on 04/06/21 Wound culture pending Urine culture growing E. coli Continue Zosyn Daptomycin discontinued Continue Wound Care Appreciate Surgery Input DM II Last HbA1c 5.6 next Continue insulin therapy Monitor BGs Hypertension: Required pressors while intubated BP stable Labetalol resumed Resume home Losartan, and amlodipine as able Chronic pain: On methadone and hydromorphone at home Dose confirmed on PDMP Continue home methadone Continue hydromorphine at 2mg q6h prn. Was on 4mg recently per PDMP Acute on Chronic kidney disease stage V: Nonfunctioning fistula S/P fistulogram, percutaneous transluminal angioplasty by on 04/09/21 Metabolic acidosis Acidosis resolved Appreciate Nephrology and Vascular Input H/O Neuroendocrine tumor involving the cervical spine. 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 S/P Radiation therapy to the neck area Follows with Oncology DVT Px: SCDs for now Code Status Full Code Admission and Anticipated Discharge Date Admission Date: April 05, 2021 Subjective Patient is seen and examined at bedside States having right sciatic pain Had fistulogram with percutaneous transluminal angioplasty earlier today Denies any chest pain, shortness of breath, dizziness, nausea, abdominal pain Offers no complaints Review of Systems Review of Systems: All systems reviewed & are unremarkable except as noted in Subjective Physical Exam Physical Exam: Physical Exam: Vitals signs as noted above General Appearance:Obese, no apparent distress Head: normocephalic, Atraumatic Eyes: normal inspection, EOMI Neck: supple, Trachea midline Respiratory/Chest: Normal breath sounds, CTA Cardiovascular: S1, S2, No murmur Abdomen/GI:Soft, Non tender, Bowel sounds present Extremities/Musculoskeletal:normal inspection, no edema Neurologic/Psych:AAOX3, grossly no focal neurological deficits Skin: normal color, warm Results & Data Results & Data ([facility]) Vital Signs (Past 12 Hours) Vital Signs Temp Pulse Pulse Resp BP BP Pulse Ox 04/09/21 19:26 36.4 C L 70 18 151/72 H 95 04/09/21 15:52 112 H 04/09/21 14:56 36.5 C 105 H 15 144/81 H 95 04/09/21 14:15 72 132/68 04/09/21 13:59 36.6 C 102 H 15 140/77 98 04/09/21 13:35 78 142/70 H 04/09/21 13:16 36.8 C 68 18 138/76 95 04/09/21 13:03 99 H 20 155/83 H 100 04/09/21 13:00 106 H 04/09/21 12:58 98 H 20 141/77 H 100 04/09/21 12:53 98 H 20 149/81 H 100 04/09/21 12:48 99 H 20 151/78 H 100 04/09/21 12:43 97 H 20 154/81 H 100 04/09/21 12:38 99 H 20 159/79 H 100 04/09/21 12:33 106 H 20 171/99 H 100 04/09/21 12:28 106 H 20 166/72 H 100 04/09/21 12:23 105 H 20 175/69 H 100 04/09/21 12:18 107 H 20 175/83 H 100 04/09/21 12:13 109 H 20 175/84 H 100 04/09/21 12:08 109 H 20 165/81 H 100 04/09/21 12:07 110 H 20 176/103 H 100 04/09/21 11:49 36.7 C 103 H 20 171/98 H 97 04/09/21 11:00 36.5 C 97 H 13 145/76 H 94 Laboratory Results Short CBC 04/09/21 Range/Units 07:24 WBC 7.45 (4.8-10.8) K/uL Hgb 7.9 L (12.0-16.0) g/dL Hct 25.0 L (37-47) % Plt Count 268 (130-400) K/uL BMP 04/09/21 07:24 Sodium 140 Potassium 3.8 Chloride 104 Carbon Dioxide 21 BUN 114 H Creatinine 6.35 H* D Glucose 137 H Calcium 10.2 H (1) Acute renal failure Acute renal failure type: unspecified Qualified Code(s): N17.9 - Acute kidney failure, unspecified
[2021-04-09] MEDS: LABETALOL HCL 100 MG TAB PO SCH (21:34)
[2021-04-10] MEDS: ACETAMINOPHEN 325 MG TAB PO SCH ×4 (00:54→18:06)
[2021-04-10] MEDS: HYDROmorphone HCL 2 MG TAB PO PRN ×2 (02:04→10:54)
[2021-04-10] MEDS: PIPERACILLIN/TAZOBACTAM 4.5 GM in DEXTROSE 5% 100 ML IV SCH ×2 (05:46→18:06)
[2021-04-10] MEDS: LEVOTHYROXINE SODIUM 125 MCG TABLET PO SCH (05:48)
[2021-04-10] MEDS: HYDROmorphone INJ 0.5 MG/0.5 ML SYR IV PRN ×3 (07:50→22:22)
[2021-04-10 07:55] LABS: BUN Creatinine Ratio 17.5 (10-20); Calcium 9.9 mg/dl (8.5-10.1); Creatinine Clr Calc Pharmacy 13.9 ml/min; Est GFR (African American) 8.9 ml/min; Est GFR (Non-African American) 7.7 ml/min; Potassium 3.6 mmol/L (3.5-5.1)
[2021-04-10] MEDS: LABETALOL HCL 100 MG TAB PO SCH ×2 (08:01→20:07)
[2021-04-10] MEDS: INSULIN ASPART 100 UNITS/ML 3 ML PEN SC SCH ×4 (08:02→21:20)
--- NOTE | 2021-04-10 10:24 | Pharmacy Report ---
Pharmacy Glycemic Short Note 2 - Date of Service April 10, 2021 - Glycemic Short BSG Results (Last 24 hours): 04/09/21 04/09/21 04/09/21 11:55 16:25 19:41 Glucose POC Glucose 131 H 178 H 194 H 04/10/21 04/10/21 06:54 07:25 Glucose 134 H POC Glucose 139 H OUTPATIENT ANTIDIABETIC REGIMEN: * NPH 35 units SQ BID * NovoLog per scale * A1c 5.6% on 04/07/21 ASSESSMENT: 04/09 * Pt has received 26 units of insulin over the past 24hrs * 15 units of basal with Lantus * 11 units of bolus with NovoLog * BSGs [id number] mg/dl * Fasting BSGs in goal range - no changes needed to basal * BSGs trend upwards throughout the day after meals. Will tighten CHO ratio 04/08 * Diet ordered yesterday * BSG's with very gradual trend up yesterday from 89 to 122 mg/dL over ~20 hours. OK to slightly increase Lantus today now that the significant dose reduction yesterday has taken effect * No change to Novolog - no bolus insulin administered yesterday to assess parameters 04/07 * Stressors stable. Patient remains NPO * Insulin drip has been off since 0000 with six BSG's ranging 75-99 since that time. A second dose of Lantus 20 units was administered at 0000 for a total of 40 units. OK to discontinue drip per Dr. Mcnamara. * Will hold off on additional Lantus temporarily 2nd lower BSG's and midnight Lantus staring to take effect. Will resume this evening at a lower daily dose. * Will start Novolog q4h at weight-based moderate stress estimate 04/06 * 55yo T2DM female with unknown degree of outpatient control. Ordered A1c with AM labs per protocol for 04/07/21 * Pt with moderate hyperglycemia on admission- now severe hyperglycemia secondary to illness/infection, mechanical ventilation, s/p OR for I&D, and basal insulin deficiency. No scheduled insulin ordered - just SSI on admission. * BSG > 219 x 2 --> will start IV insulin infusion per protocol. Hospitalist in agreement * Will start low dose basal insulin to cover baseline needs while NPO. Will use Lantus instead of outpatient NPH s/t NPO status. * Titrate based on BSG trends to maintain BSGs 140-180 mg/dl. PLAN FOR INPATIENT GLYCEMIC CONTROL: * Basal insulin * Lantus 15-20 units SQ HS based on BSG * Bolus insulin * Novolog ACHS or q6h if NPO * Goal range: 110-140 mg/dL * Correction factor: 20 mg/dL/unit * Carb ratio: 6 g CHO/unit PLAN FOR DISCHARGE: * TBD
--- NOTE | 2021-04-10 11:24 | Communication Note ---
Date of Service: April 10, 2021 Underwent a BAM procedure yesterday. Not sure the upper arm cephalic vein will mature. Would give it 2-4 weeks. If it shows no sign of maturing, she would need a basilic vein transposition. Her endovascular fistula feeds mostly the basilic vein which is of good size for dialysis. This can be done here or in [place] where her fistula was created. We would be happy to see her in 2 -4 weeks for follow up of her fistula if she so desires to stay here. Thank you very much for letting us participate in the care of this patient.
--- NOTE | 2021-04-10 13:16 | Surgery Progress Note ---
Date of Service April 10, 2021 Assessment & Plan (1) Abscess, gluteal, right: (2) Gas gangrene: Plan: POD # 4 and 6 s/p I&D of right gluteal necrotizing abscess -afebrile, vss - no leukocytosis - wound with granulation tissue, no necrosis, some fibrinous tissue present Plan: Wound dressing was changed earlier this morning. I have asked the nurses to call myself for the PA when the wound is change next. She is doing quite well. Plan to move forward with setting up home health wound changes for home possibly in the near future. will continue to follow Admission and Anticipated Discharge Date Admission Date: April 05, 2021 Subjective She is doing fairly well today. Her wound was packed with Aquacel Ag and foam this morning. She denies pain or tenderness. She is eating well and having normal bowel movements. Physical Exam Constitutional: WD/WN, vitals as above + mechanically ventilated Eyes: PERRL, conjunctivae normal, anicteric sclerae Neck: trachea midline, no thyromegaly Gastrointestinal (Abdomen): Inspection/Auscultation: abdomen not distended Percussion/Palpation: abdomen soft; abdomen nontender and abdomen not rigid Skin: no rashes, warm and dry Psychiatric: A+Ox3, euthymic affect Results & Data ([facility]) Vital Signs (Past 12 Hours) Vital Signs Temp Pulse Pulse Resp BP Pulse Ox 04/10/21 10:56 36.2 C L 91 H 20 156/77 H 99 04/10/21 07:38 36.3 C L 94 H 20 153/75 H 97 04/10/21 07:20 87 04/10/21 04:00 36.6 C 87 18 139/70 95 Laboratory Results 04/10/21 04/10/21 04/10/21 Range/Units 11:23 07:25 06:54 Sodium 136 (136-145) mmol/L Potassium 3.6 (3.5-5.1) mmol/L Chloride 102 (98-107) mmol/L Carbon Dioxide 21 (21-32) mmol/L Anion Gap 13.0 H (3-11) BUN 101 H (7-18) mg/dl Creatinine 5.75 H* D (0.6-1.2) mg/dl Est Cr Clr Drug Dosing 13.9 ml/min Est GFR ( Amer) 8.9 ml/min Est GFR (Non-Af Amer) 7.7 ml/min BUN/Creatinine Ratio 17.5 (10-20) Glucose 134 H (70-99) mg/dl POC Glucose 158 H 139 H (70-99) mg/dl Calcium 9.9 (8.5-10.1) mg/dl 04/09/21 04/09/21 Range/Units 19:41 16:25 Sodium (136-145) mmol/L Potassium (3.5-5.1) mmol/L Chloride (98-107) mmol/L Carbon Dioxide (21-32) mmol/L Anion Gap (3-11) BUN (7-18) mg/dl Creatinine (0.6-1.2) mg/dl Est Cr Clr Drug Dosing ml/min Est GFR ( Amer) ml/min Est GFR (Non-Af Amer) ml/min BUN/Creatinine Ratio (10-20) Glucose (70-99) mg/dl POC Glucose 194 H 178 H (70-99) mg/dl Calcium (8.5-10.1) mg/dl
--- NOTE | 2021-04-10 14:06 | Nephrology Progress Note ---
Date of Service April 10, 2021 Assessment & Plan Admission and Anticipated Discharge Date Admission Date: April 05, 2021 Subjective Subjective Assessment & Plan (1) Acute renal failure: (2)CKD 5: Plan: not on chronic dialysis yet. Also creat and overall status improving so hopeful she wont need dialysis this admission. Creat down and rising UO good. has LUE endovascular AVF - ready to use per OP notes but challenging to access based on exam by me and by gear technician. vascular did Angio yesterday. She has better bruit/thrill after higher BP. Given Ongoing issues with gluteal abscess/ infection risk of doing dialysis with [facility] at this very moment is high with infection. Does not need today anyway and doubt will need this admission. Getting close to her baseline of the 4's range creat. No Iv fluid and no Diuretics for now (3) Abscess, gluteal, right: Plan: s/p emergent I&D 04/05 now w/ packed/open wound and OR/vac placement 04/06 blood C/s Still negative. Ongoing issues with fecal contamination and so on. 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 getting better. Wound vac issues with fecal soiling. Increased urine also. Review of Systems Review of Systems: Unobtainable due to endotracheal tube Physical Exam Constitutional: well developed, well nourished, + obese and + mechanically ventilated; no acute distress Eyes: EOM intact bilaterally ENMT: Ears: no external ear abnormality Nose: no external nose abnormalit y Mouth: + dry oral mucous membranes Neck: no nuchal rigidity Respiratory: normal respiratory effort Auscultation: + diminished lung sounds Cardiovascular: Rate/Rhythm: regular rate and regular rhythm Heart Sounds: normal S1 and normal S2 Extremities: + edema (trace-1+ anasarca) and + AV fistula (L AC +bruit; thrill today w/ edema more difficult to isolate) Gastrointestinal (Abdomen): Inspection/Auscultation: normal bowel sounds Percussion/Palpation: abdomen soft; abdomen nontender Musculoskeletal: Extremities: strength 5/5 throughout Skin: no rashes, warm and dry Neurologic: sedated Genitourinary: ample urine Results & Data ([facility]) Vital Signs (Past 12 Hours) Vital Signs Temp Pulse Pulse Resp BP Pulse Ox 04/10/21 10:56 36.2 C L 91 H 20 156/77 H 99 04/10/21 07:38 36.3 C L 94 H 20 153/75 H 97 04/10/21 07:20 87 04/10/21 04:00 36.6 C 87 18 139/70 95
[2021-04-10] MEDS: NEPHROCAPS PO SCH (15:50)
--- NOTE | 2021-04-10 17:16 | Hospitalist Progress Note ---
Date of Service April 10, 2021 Assessment & Plan (1) Abscess, gluteal, right: (2) Gas gangrene: (3) Acute renal failure: (4) ESRD (end stage renal disease): Plan: Right gluteal abscess, gas forming, necrotizing abscess Sepsis UTI-POA S/P Incision and drainage by surgeon on 04/05/21 and 04/06/21 Extubated on 04/06/21 Wound culture pending Urine culture growing E. coli Continue Zosyn Daptomycin discontinued Continue Wound Care Appreciate Surgery Input ID input pending Patient refused wound VAC Surgery following DM II Last HbA1c 5.6 next Continue insulin therapy Monitor BGs Hypertension: Required pressors while intubated BP stable Labetalol, Amlodipine resumed Hold Losartan for now Chronic pain: On methadone and hydromorphone at home Dose confirmed on PDMP Continue home methadone Continue hydromorphine at 2mg q6h prn. Was on 4mg recently per PDMP Acute on Chronic kidney disease stage V: Nonfunctioning fistula S/P fistulogram, percutaneous transluminal angioplasty by on 04/09/21 Metabolic acidosis Acidosis resolved Appreciate Nephrology and Vascular Input Cr 5.75 today Needs follow-up with vascular surgery upon discharge H/O Neuroendocrine tumor involving the cervical spine. 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 S/P Radiation therapy to the neck area Follows with Oncology DVT Px: SCDs for now Code Status Full Code Admission and Anticipated Discharge Date Admission Date: April 05, 2021 Subjective Patient is seen and examined at bedside States feeling better today No new complaints Sitting in chair during my encounter Dressing was changed today Awaiting ID input Renal function slowly improving Denies any chest pain, shortness of breath, dizziness, nausea, abdominal pain Review of Systems Review of Systems: All systems reviewed & are unremarkable except as noted in Subjective Physical Exam Physical Exam: Physical Exam: Vitals signs as noted above General Appearance:Obese, no apparent distress Head: normocephalic, Atraumatic Eyes: normal inspection, EOMI Neck: supple, Trachea midline Respiratory/Chest: Normal breath sounds, CTA Cardiovascular: S1, S2, No murmur Abdomen/GI:Soft, Non tender, Bowel sounds present Extremities/Musculoskeletal:normal inspection, no edema Neurologic/Psych:AAOX3, grossly no focal neurological deficits Skin: normal color, warm Results & Data Results & Data ([facility]) Vital Signs (Past 12 Hours) Vital Signs Temp Pulse Pulse Resp BP Pulse Ox 04/10/21 15:35 98 H 04/10/21 15:22 36.4 C L 97 H 18 171/80 H 95 04/10/21 10:56 36.2 C L 91 H 20 156/77 H 99 04/10/21 07:38 36.3 C L 94 H 20 153/75 H 97 04/10/21 07:20 87 Laboratory Results [facility] 04/10/21 06:54 Sodium 136 Potassium 3.6 Chloride 102 Carbon Dioxide 21 BUN 101 H Creatinine 5.75 H* D Glucose 134 H Calcium 9.9 (1) Acute renal failure Acute renal failure type: unspecified Qualified Code(s): N17.9 - Acute kidney failure, unspecified
[2021-04-10] MEDS: amLODIPine BESYLATE 5 MG TAB PO SCH (18:06)
[2021-04-10] MEDS: METHADONE HCL 5 MG TAB PO SCH (20:05)
[2021-04-10] MEDS ORDERED: INSULIN GLARGINE SOLOSTAR 100 UNITS/ML 3 ML PEN SC SCH (21:00)
[2021-04-10] MEDS: INSULIN GLARGINE SOLOSTAR 100 UNITS/ML 3 ML PEN SC SCH (21:21)
[2021-04-10] MEDS: DICLOFENAC SOD 1% GEL 100 GM TUBE EXT PRN (23:46)
[2021-04-11] MEDS: ACETAMINOPHEN 325 MG TAB PO SCH ×5 (00:17→23:56)
[2021-04-11] MEDS: HYDROmorphone HCL 2 MG TAB PO PRN ×4 (04:28→20:40)
[2021-04-11] MEDS: DICLOFENAC SOD 1% GEL 100 GM TUBE EXT PRN (05:20)
[2021-04-11] MEDS: HYDROmorphone INJ 0.5 MG/0.5 ML SYR IV PRN ×2 (05:36→10:50)
[2021-04-11] MEDS: LEVOTHYROXINE SODIUM 125 MCG TABLET PO SCH (06:02)
[2021-04-11] MEDS: PIPERACILLIN/TAZOBACTAM 4.5 GM in DEXTROSE 5% 100 ML IV SCH ×2 (06:19→17:46)
[2021-04-11 06:50] LABS: Hematocrit (blood only) 25.2 % (37-47); Mean Corpuscular Hgb Conc 31.7 g/dL (32-36); Mean Corpuscular Volume 94.4 fL (80-100); Mean Platelet Volume 9.3 fL (7.4-10.4); Platelet Count 264 K/uL (130-400); RDW Coefficient of Variation 13.1 % (11.5-14.5); RDW Standard Deviation 44.9 fL (36.4-46.3); Red Blood Count 2.67 M/uL (4.2-5.4); White Blood Count 9.64 K/uL (4.8-10.8)
[2021-04-11 07:33] LABS: BUN Creatinine Ratio 17.2 (10-20); Calcium 10.4 mg/dl (8.5-10.1); Creatinine Clr Calc Pharmacy 14.8 ml/min; Est GFR (African American) 9.7 ml/min; Est GFR (Non-African American) 8.3 ml/min; Potassium 3.9 mmol/L (3.5-5.1)
[2021-04-11] MEDS: amLODIPine BESYLATE 5 MG TAB PO SCH (08:26)
[2021-04-11] MEDS: NEPHROCAPS PO SCH (08:27)
[2021-04-11] MEDS: LABETALOL HCL 100 MG TAB PO SCH ×2 (08:27→20:31)
[2021-04-11] MEDS: INSULIN ASPART 100 UNITS/ML 3 ML PEN SC SCH ×4 (08:29→20:35)
--- NOTE | 2021-04-11 10:10 | Pharmacy Report ---
Pharmacy Glycemic Short Note 2 - Date of Service April 11, 2021 - Glycemic Short BSG Results (Last 24 hours): 04/10/21 04/10/21 04/10/21 11:23 16:20 20:15 Glucose POC Glucose 158 H 192 H 164 H 04/11/21 04/11/21 05:59 07:45 Glucose 173 H POC Glucose 222 H OUTPATIENT ANTIDIABETIC REGIMEN: * NPH 35 units SQ BID * NovoLog per scale * A1c 5.6% on 04/07/21 ASSESSMENT: 04/10 * AM fasting BSG elevated this morning at 222mg/dl after receiving 20 units of basal insulin last evening. Will increase dose slightly to 25 units. This is still 1/2 of outpatient dosing so further increase may be warranted. Of note, patient did have below goal BSGs with dosing closer to outpatient dosing at 20 units SQ BID. A1c low but this is likely secondary to CKD5. * No changes needed to CF/CR since most post-prandial BSGs in goal range. Control is adequate given co-morbidities. 04/09 * Pt has received 26 units of insulin over the past 24hrs * 15 units of basal with Lantus * 11 units of bolus with NovoLog * BSGs [id number] mg/dl * Fasting BSGs in goal range - no changes needed to basal * BSGs trend upwards throughout the day after meals. Will tighten CHO ratio 04/08 * Diet ordered yesterday * BSG's with very gradual trend up yesterday from 89 to 122 mg/dL over ~20 hours. OK to slightly increase Lantus today now that the significant dose reduction yesterday has taken effect * No change to Novolog - no bolus insulin administered yesterday to assess parameters 04/07 * Stressors stable. Patient remains NPO * Insulin drip has been off since 0000 with six BSG's ranging 75-99 since that time. A second dose of Lantus 20 units was administered at 0000 for a total of 40 units. OK to discontinue drip per Dr. Mcnamara. * Will hold off on additional Lantus temporarily 2nd lower BSG's and midnight Lantus staring to take effect. Will resume this evening at a lower daily dose. * Will start Novolog q4h at weight-based moderate stress estimate 04/06 * 55yo T2DM female with unknown degree of outpatient control. Ordered A1c with AM labs per protocol for 04/07/21 * Pt with moderate hyperglycemia on admission- now severe hyperglycemia secondary to illness/infection, mechanical ventilation, s/p OR for I&D, and basal insulin deficiency. No scheduled insulin ordered - just SSI on admission. * BSG > 219 x 2 --> will start IV insulin infusion per protocol. Hospitalist in agreement * Will start low dose basal insulin to cover baseline needs while NPO. Will use Lantus instead of outpatient NPH s/t NPO status. * Titrate based on BSG trends to maintain BSGs 140-180 mg/dl. PLAN FOR INPATIENT GLYCEMIC CONTROL: * Basal insulin * Lantus 25 units SQ HS * Bolus insulin * Novolog ACHS or q6h if NPO * Goal range: 110-140 mg/dL * Correction factor: 20 mg/dL/unit * Carb ratio: 6 g CHO/unit PLAN FOR DISCHARGE: * TBD
--- NOTE | 2021-04-11 10:41 | Nephrology Progress Note ---
Date of Service April 11, 2021 Assessment & Plan Admission and Anticipated Discharge Date Admission Date: April 05, 2021 Subjective Subjective Subjective Assessment & Plan (1) Acute renal failure: (2)CKD 5: Plan: not on chronic dialysis yet. Also creat and overall status improving so hopeful she wont need dialysis this admission. Creat down and rising UO good. has LUE endovascular AVF - ready to use per OP notes but challenging to access based on exam by me and by inoculator. vascular did Angio yesterday. She has better bruit/thrill now. Given Ongoing issues with gluteal abscess/ infection risk of doing dialysis with CVC at this very moment is high with infection. Does not need today anyway and doubt will need this admission. Getting close to her baseline of the 4's range creat. No Iv fluid and no Diuretics for now. hgb low with anemia but given Cancer No EPO. (3) Abscess, gluteal, right: Plan: s/p emergent I&D 04/05 now w/ packed/open wound and OR/vac placement 04/06 blood C/s Still negative. Ongoing issues with fecal contamination and so on. 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 getting better. Wound vac issues with fecal soiling. Increased urine also. Review of Systems Review of Systems: Unobtainable due to endotracheal tube Physical Exam Constitutional: well developed, well nourished, + obese no acute distress Eyes: EOM intact bilaterally ENMT: Ears: no external ear abnormality Nose: no external nose abnormality Mouth: + dry oral mucous membranes Neck: no nuchal rigidity Respiratory: normal respiratory effort Auscultation: + diminished lung sounds Cardiovascular: Rate/Rhythm: regular rate and regular rhythm Heart Sounds: normal S1 and normal S2 Extremities: + edema (trace-1+ anasarca) and + AV fistula (L AC +bruit; thrill today w/ edema more difficult to isolate) Gastrointestinal (Abdomen): Inspection/Auscultation: normal bowel sounds Percussion/Palpation: abdomen soft; abdomen nontender Musculoskeletal: Extremities: strength 5/5 throughout Skin: no rashes, warm and dry Neurologic: sedated Genitourinary: ample urine Results & Data ([facility]) Vital Signs (Past 12 Hours) Vital Signs Temp Pulse Pulse Resp BP Pulse Ox Pulse Ox 04/11/21 08:00 89 04/11/21 07:31 36.6 C 118 H 16 154/77 H 99 04/11/21 05:50 36.6 C 96 H 20 155/80 H 95 04/11/21 05:00 95 04/11/21 02:40 93 H 04/10/21 23:53 36.5 C 94 H 18 153/76 H 95
--- NOTE | 2021-04-11 13:19 | Surgery Progress Note ---
Date of Service April 11, 2021 Assessment & Plan (1) Abscess, gluteal, right: Plan: POD # 6 s/p I&D and subsequent debridement -afebrile, vitals stable - wound slowly healing, depth about 9.5 cm today - no leukocytosis Plan: Continue aquacel ag and optifoam dressing changes as per directed by wound care nurse She will need home health nursing for wound change and wound care follow-up awaiting ID consultation continue current management [facility] surgery covering this weekend Discussed with Dr. Carrizales who agrees with above. Admission and Anticipated Discharge Date Admission Date: April 05, 2021 Subjective no pain in buttock no nausea or vomiting, tolerating diet no fevers or chills Physical Exam Constitutional: WD/WN, vitals as above no acute distress and not ill appearing Gastrointestinal (Abdomen): Right buttock with large wound with fibrinous sloughing , no necrosis. about 9.5 cm deep and there is undermining of about 2- 4 cm around the wound. Granulation tissue under the fibrinous sloughing. Non tender. Results & Data ([facility]) Vital Signs (Past 12 Hours) Vital Signs Temp Pulse Pulse Resp BP Pulse Ox Pulse Ox 04/11/21 08:00 89 04/11/21 07:31 36.6 C 118 H 16 154/77 H 99 04/11/21 05:50 36.6 C 96 H 20 155/80 H 95 04/11/21 05:00 95 04/11/21 02:40 93 H Laboratory Results 04/11/21 04/11/21 04/11/21 Range/Units 11:41 07:45 05:59 WBC (4.8-10.8) K/uL RBC (4.2-5.4) M/uL Hgb (12.0-16.0) g/dL Hct (37-47) % MCV (80-100) fL MCH (25-34) pg MCHC (32-36) g/dL RDW Std Deviation (36.4-46.3) fL RDW Coeff of Padmini (11.5-14.5) % Plt Count (130-400) K/uL MPV (7.4-10.4) fL Sodium 138 (136-145) mmol/L Potassium 3.9 (3.5-5.1) mmol/L Chloride 104 (98-107) mmol/L Carbon Dioxide 20 L (21-32) mmol/L Anion Gap 14.0 H (3-11) BUN 92 H (7-18) mg/dl Creatinine 5.38 H* D (0.6-1.2) mg/dl Est Cr Clr Drug Dosing 14.8 ml/min Est GFR ( Amer) 9.7 ml/min Est GFR (Non-Af Amer) 8.3 ml/min BUN/Creatinine Ratio 17.2 (10-20) Glucose 173 H (70-99) mg/dl POC Glucose 171 H 222 H (70-99) mg/dl Calcium 10.4 H (8.5-10.1) mg/dl 04/11/21 04/10/21 04/10/21 Range/Units 05:59 20:15 16:20 WBC 9.64 (4.8-10.8) K/uL RBC 2.67 L (4.2-5.4) M/uL Hgb 8.0 L (12.0-16.0) g/dL Hct 25.2 L (37-47) % MCV 94.4 (80-100) fL MCH 30.0 (25-34) pg MCHC 31.7 L (32-36) g/dL RDW Std Deviation 44.9 (36.4-46.3) fL RDW Coeff of Padmini 13.1 (11.5-14.5) % Plt Count 264 (130-400) K/uL MPV 9.3 (7.4-10.4) fL Sodium (136-145) mmol/L Potassium (3.5-5.1) mmol/L Chloride (98-107) mmol/L Carbon Dioxide (21-32) mmol/L Anion Gap (3-11) BUN (7-18) mg/dl Creatinine (0.6-1.2) mg/dl Est Cr Clr Drug Dosing ml/min Est GFR ( Amer) ml/min Est GFR (Non-Af Amer) ml/min BUN/Creatinine Ratio (10-20) Glucose (70-99) mg/dl POC Glucose 164 H 192 H (70-99) mg/dl Calcium (8.5-10.1) mg/dl
--- NOTE | 2021-04-11 17:27 | Hospitalist Progress Note ---
Date of Service April 11, 2021 Assessment & Plan (1) Abscess, gluteal, right: (2) Gas gangrene: (3) Acute renal failure: (4) ESRD (end stage renal disease): Plan: Right gluteal abscess, gas forming, necrotizing abscess Sepsis UTI-POA S/P Incision and drainage by surgeon on 04/05/21 and 04/06/21 Extubated on 04/06/21 Wound culture pending Urine culture growing E. coli Continue Zosyn Daptomycin discontinued Continue Wound Care Appreciate Surgery Input Appreciate ID input Patient refused wound VAC Surgery following Complete IV antibiotic course today Will need home health for wound care upon discharge DM II Last HbA1c 5.6 next Continue insulin therapy Monitor BGs Hypertension: Required pressors while intubated BP stable Labetalol, Amlodipine resumed Hold Losartan for now Chronic pain: On methadone and hydromorphone at home Dose confirmed on PDMP Continue home methadone Continue hydromorphine at 2mg q6h prn. Was on 4mg recently per PDMP Acute on Chronic kidney disease stage V: Nonfunctioning fistula S/P fistulogram, percutaneous transluminal angioplasty by on 04/09/21 Metabolic acidosis Acidosis resolved Appreciate Nephrology and Vascular Input Cr 5.38 today Needs follow-up with vascular surgery upon discharge H/O Neuroendocrine tumor involving the cervical spine. 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 S/P Radiation therapy to the neck area Follows with Oncology DVT Px: SCDs for now Code Status Full Code Admission and Anticipated Discharge Date Admission Date: April 05, 2021 Subjective Patient is seen and examined at bedside Eager to get discharged Discussed with ID today Denies any chest pain, shortness of breath, dizziness, nausea, abdominal pain Renal Function stable Review of Systems Review of Systems: All systems reviewed & are unremarkable except as noted in Subjective Physical Exam Physical Exam: Physical Exam: Vitals signs as noted above General Appearance:Obese, no apparent distress Head: normocephalic, Atraumatic Eyes: normal inspection, EOMI Neck: supple, Trachea midline Respiratory/Chest: Normal breath sounds, CTA Cardiovascular: S1, S2, No murmur Abdomen/GI:Soft, Non tender, Bowel sounds present Extremities/Musculoskeletal:normal inspection, no edema Neurologic/Psych:AAOX3, grossly no focal neurological deficits Skin: normal color, warm Results & Data Results & Data ([facility]) Vital Signs (Past 12 Hours) Vital Signs Temp Pulse Pulse Resp BP Pulse Ox 04/11/21 16:00 82 04/11/21 14:54 36.3 C L 94 H 20 146/76 H 95 04/11/21 08:00 89 04/11/21 07:31 36.6 C 118 H 16 154/77 H 99 04/11/21 05:50 36.6 C 96 H 20 155/80 H 95 Laboratory Results Short CBC 04/11/21 Range/Units 05:59 WBC 9.64 (4.8-10.8) K/uL Hgb 8.0 L (12.0-16.0) g/dL Hct 25.2 L (37-47) % Plt Count 264 (130-400) K/uL BMP 04/11/21 05:59 Sodium 138 Potassium 3.9 Chloride 104 Carbon Dioxide 20 L BUN 92 H Creatinine 5.38 H* D Glucose 173 H Calcium 10.4 H (1) Acute renal failure Acute renal failure type: unspecified Qualified Code(s): N17.9 - Acute kidney failure, unspecified
[2021-04-11] MEDS: METHADONE HCL 5 MG TAB PO SCH (20:31)
[2021-04-11] MEDS ORDERED: INSULIN GLARGINE SOLOSTAR 100 UNITS/ML 3 ML PEN SC SCH (21:00)
[2021-04-12] MEDS: HYDROmorphone INJ 0.5 MG/0.5 ML SYR IV PRN ×2 (00:05→08:27)
[2021-04-12] MEDS: ACETAMINOPHEN 325 MG TAB PO SCH ×2 (06:26→11:40)
[2021-04-12] MEDS: LEVOTHYROXINE SODIUM 125 MCG TABLET PO SCH (06:27)
[2021-04-12] MEDS: HYDROmorphone HCL 2 MG TAB PO PRN ×2 (07:31→11:40)
[2021-04-12] MEDS: amLODIPine BESYLATE 5 MG TAB PO SCH (08:29)
[2021-04-12] MEDS: LABETALOL HCL 100 MG TAB PO SCH (08:30)
[2021-04-12] MEDS: NEPHROCAPS PO SCH (08:30)
[2021-04-12] MEDS: INSULIN ASPART 100 UNITS/ML 3 ML PEN SC SCH ×2 (08:30→12:23)
[2021-04-12 08:45] LABS: BUN Creatinine Ratio 17.4 (10-20); Calcium 10.8 mg/dl (8.5-10.1); Creatinine Clr Calc Pharmacy 16.2 ml/min; Est GFR (African American) 10.6 ml/min; Est GFR (Non-African American) 9.2 ml/min; Potassium 3.7 mmol/L (3.5-5.1)
[2021-04-12] MEDS ORDERED: HYDROmorphone INJ 0.5 MG/0.5 ML SYR IV PRN (10:34)
--- NOTE | 2021-04-12 11:58 | Nephrology Progress Note ---
Date of Service April 12, 2021 Assessment & Plan (1) Acute renal failure: Plan: Patient with ischemic ATN due to gluteal abscess. Creatinine downtrending to 4.9 today which is her baseline. Electrolytes are stable no signs of volume overload. -From renal standpoint patient can be discharged to follow-up outpatient with Dr. Aleman (2) ESRD (end stage renal disease): Plan: not on chronic dialysis but likely to start this admission given her clinical status has LUE endovascular AVF - ready to use per OP notes but challenging to access based on exam by me and by family law specialist -No need for emergent dialysis. AV fistula still maturing. 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 She feels better. No shortness of breath. No leg swelling. Creatinine downtrending Review of Systems Review of Systems: All other systems were reviewed and negative except as noted in HPI Physical Exam Physical Exam: General exam: Appears comfortable, no acute distress HEENT: Pupils are equal and reactive to light Neck: No JVD, neck is supple trachea is midline Respiratory system: Clear breath sounds bilaterally. Gastrointestinal: Abdomen is soft, non distended, non tender, bowel sounds are present CVS: Regular rate and rhythm. No murmurs, rubs or gallops Musculoskeletal: No joint or muscle tenderness Extremities: Non tender, no edema, peripheral pulses are present Neuro: Oriented, no tremors, no focal neurological deficits Skin: No rashes Results & Data ([facility]) Vital Signs (Past 12 Hours) Vital Signs Temp Pulse Pulse Resp BP Pulse Ox 04/12/21 11:03 101 H 04/12/21 08:05 36.6 C 100 H 18 179/80 H 99 04/12/21 03:38 36.6 C 90 20 156/76 H 98 Laboratory Results 04/12/21 07:41 (1) Acute renal failure Acute renal failure type: unspecified Qualified Code(s): N17.9 - Acute kidney failure, unspecified
--- NOTE | 2021-04-12 12:51 | Hospitalist Progress Note ---
Date of Service April 12, 2021 Assessment & Plan (1) Abscess, gluteal, right: (2) Gas gangrene: (3) Acute renal failure: (4) ESRD (end stage renal disease): Plan: Right gluteal abscess, gas forming, necrotizing abscess Sepsis UTI-POA S/P Incision and drainage by surgeon on 04/05/21 and 04/06/21 Extubated on 04/06/21 Wound culture probable anaerobic gram-negative bacilli Urine culture growing E. coli Daptomycin discontinued Continue Wound Care Appreciate Surgery Input Appreciate ID input Patient refused wound VAC Surgery following Complete IV Zosyn course as per ID Will need home health for wound care upon discharge Continue wound care DM II Last HbA1c 5.6 next Continue insulin therapy Monitor BGs Hypertension: Required pressors while intubated BP stable Labetalol, Amlodipine resumed Hold Losartan for now Chronic pain: On methadone and hydromorphone at home Dose confirmed on PDMP Continue home methadone Continue hydromorphine at 2mg q6h prn. Was on 4mg recently per PDMP Acute on Chronic kidney disease stage V: Likely ATN due to infection Nonfunctioning fistula S/P fistulogram, percutaneous transluminal angioplasty by on 04/09/21 Metabolic acidosis Acidosis resolved Appreciate Nephrology and Vascular Input Cr: 4.97 Today Needs follow-up with vascular surgery upon discharge Losartan, furosemide continue to hold upon discharge H/O Neuroendocrine tumor involving the cervical spine. 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 S/P Radiation therapy to the neck area Follows with Oncology DVT Px: SCDs for now Code Status Full Code Admission and Anticipated Discharge Date Admission Date: April 05, 2021 Subjective Patient is seen and examined at bedside Complains of chronic leg pain Renal function continues to improve No new complaints Eager to get discharged Denies any chest pain, shortness of breath, dizziness, nausea, abdominal pain Review of Systems Review of Systems: All systems reviewed & are unremarkable except as noted in Subjective Physical Exam Physical Exam: Physical Exam: Vitals signs as noted above General Appearance:Obese, no apparent distress Head: normocephalic, Atraumatic Eyes: normal inspection, EOMI Neck: supple, Trachea midline Respiratory/Chest: Normal breath sounds, CTA Cardiovascular: S1, S2, No murmur Abdomen/GI:Soft, Non tender, Bowel sounds present Extremities/Musculoskeletal:normal inspection, no edema Neurologic/Psych:AAOX3, grossly no focal neurological deficits Skin: normal color, warm Results & Data Results & Data ([facility]) Vital Signs (Past 12 Hours) Vital Signs Temp Pulse Pulse Resp BP Pulse Ox 04/12/21 11:03 101 H 04/12/21 08:05 36.6 C 100 H 18 179/80 H 99 04/12/21 03:38 36.6 C 90 20 156/76 H 98 Laboratory Results [facility] 04/12/21 07:41 Sodium 140 Potassium 3.7 Chloride 106 Carbon Dioxide 21 BUN 86 H Creatinine 4.97 H* D Glucose 137 H Calcium 10.8 H (1) Acute renal failure Acute renal failure type: unspecified Qualified Code(s): N17.9 - Acute kidney failure, unspecified
--- NOTE | 2021-04-12 13:03 | Discharge Summary ---
Date of Service April 12, 2021 Admission HPI Per Admitting Provider 55-year-old woman presents to the ER with worsening right back and gluteal pain. She has an extensive medical history including diabetes, chronic kidney disease stage IV, sciatica on the right side. She thought that the pain was coming from the sciatica. She states that she had a small pimple on her right gluteus on Wednesday. She states that she fell on Wednesday, and subsequently developed a large red firm area surrounding the pimple/pustule. She denies any drainage from the area. She does have subjective fevers and chills. She denies chest pain or shortness of breath. CT scan demonstrates a large amount of subcutaneous emphysema in the right gluteal subcutaneous tissues. Admission Exam Per Admitting Provider PHYSICAL EXAMINATION: GENERAL: The patient is obese, currently not in acute distress. VITAL SIGNS: Temperature 36.7, pulse 85, respiratory rate 21, blood pressure 134/66, oxygen 96% on mechanical ventilator, on 40% FiO2. HEENT: Head atraumatic. NECK: No JVD. No neck masses seen. CARDIOVASCULAR: S1 and S2 heard. Regular rate and rhythm. No murmur, no gallop. RESPIRATORY SYSTEM: Normal AP diameter. No accessory muscle use. No wheezing, no crackles. ABDOMEN: Soft, bowel sounds sluggish, nontender, no distention. CENTRAL NERVOUS SYSTEM: Intubated and sedated, opens eyes on calling. EXTREMITIES: No edema, no erythema seen. Principal Diagnosis Sepsis Urinary tract infection Right gluteal abscess Acute kidney injury Discharge Exam Physical Exam: Vitals signs as noted above General Appearance:Obese, no apparent distress Head: normocephalic, Atraumatic Eyes: normal inspection, EOMI Neck: supple, Trachea midline Respiratory/Chest: Normal breath sounds, CTA Cardiovascular: S1, S2, No murmur Abdomen/GI:Soft, Non tender, Bowel sounds present Extremities/Musculoskeletal:normal inspection, no edema Neurologic/Psych:AAOX3, grossly no focal neurological deficits Skin: normal color, warm Discharge Data Allergies Allergy/AdvReac Type Severity Reaction Status Date / Time Iodinated Contrast Media AdvReac Severe Patient Verified 04/04/21 21:17 has kidney failure omeprazole AdvReac Severe Increased Verified 04/04/21 21:17 her acid reflux Consultations 04/04/21 23:03 Consult General Surgery Stat ED Decision to Admit Stat 04/05/21 03:24 Consult Supervisor Special Services Routine 04/05/21 08:00 Consult Nephrology Routine 04/07/21 07:30 Consult Vascular Surgery Routine 04/09/21 10:19 Consult Infectious Diseases Routine Procedures Performed Operation Date: 04/04/21 23:30 Actual Procedures p Incision and Drainage of Right Gluteal Abscess(Right) - Mateusz Carrizales MD Operation Date: 04/06/21 12:30 Actual Procedures p Right Buttock Wound Debridement and Dressing Change(Right) - Mateusz sawant MD Operation Date: 04/09/21 12:10 Actual Procedures p Left Arm Fistulogram, Percutaneous transluminal angioplasty venous, moderate sedation time [id number](Left) - Rigo Strong MD Ordered Studies 04/04/21 20:51 CT head/brain wo con Stat 04/04/21 21:01 CT pelvis wo con Stat 04/06/21 10:40 US hemodialysis access Routine 04/09/21 07:31 EV angio arteriovenous shunt Routine US EV guide vascular access Routine Hospital Course (1) Abscess, gluteal, right: (2) Gas gangrene: (3) Acute renal failure: (4) ESRD (end stage renal disease): Right gluteal abscess, gas forming, necrotizing abscess Sepsis UTI-POA S/P Incision and drainage by surgeon on 04/05/21 and 04/06/21 Extubated on 04/06/21 Wound culture probable anaerobic gram-negative bacilli Urine culture growing E. coli Daptomycin discontinued Continue Wound Care Appreciate Surgery Input Appreciate ID input Patient refused wound VAC Surgery following Complete IV Zosyn course as per ID Will need home health for wound care upon discharge Continue wound care DM II Last HbA1c 5.6 next Continue insulin therapy Monitor BGs Hypertension: Required pressors while intubated BP stable Labetalol, Amlodipine resumed Hold Losartan for now Chronic pain: On methadone and hydromorphone at home Dose confirmed on PDMP Continue home methadone Continue hydromorphine at 2mg q6h prn. Was on 4mg recently per PDMP Acute on Chronic kidney disease stage V: Likely ATN due to infection Nonfunctioning fistula S/P fistulogram, percutaneous transluminal angioplasty by on 04/09/21 Metabolic acidosis Acidosis resolved Appreciate Nephrology and Vascular Input Cr: 4.97 Today Needs follow-up with vascular surgery upon discharge Losartan, furosemide continue to hold upon discharge H/O Neuroendocrine tumor involving the cervical spine. 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 S/P Radiation therapy to the neck area Follows with Oncology DVT Px: SCDs for now Code Status Full Code Total Time Total Time Spent Total Time Spent (In Minutes): 42 minutes Discharge Plan Discharge Items Patient Disposition: Home - Home Health Services Reason For Visit: ABSCESS Discharge Diagnosis: Sepsis Urinary tract infection Right gluteal abscess Acute kidney injury Activity: Per Instructions section Exercise/Sports: Gradually increase as tolerated Non-emergency contact: Primary Care Provider, Surgeon and Dialysis Chief Equipment Technician Call non-emergency contact if: you have any medication questions, your symptoms worsen, your pain is concerning for you, you have a fever, your wound has increased redness, your wound has increased drainage and your wound pain has increased Follow-up/Referrals: Edy Eddy MD [Primary Care Provider] - Diet: Carb Consistent or DM2 and Heart Healthy Addtl Attending Provider Instructions: Follow-up with your primary care physician Dr. Eddy in 1 week upon discharge from rehab facility Follow-up with your affiliate manager Dr. Frederick in 1-2 weeks Follow-up with your surgeon Dr.Stephen Carrizales as recommended Follow-up with your vascular surgeon Dr. Strong in 2 to 4 weeks for assessment of your fistula --You furosemide and losartan is discontinued for now. Follow-up with your family doctor and affiliate manager for further recommendations. Your final blood cultures are pending at the time of discharge. Follow-up with your physician for results. Continue daily dressing of your wound as instructed. Seek immediate medical attention if your symptoms reoccur or worsen Please take all medications as instructed on discharge list below. Please call if you have any questions or problems. You can reach a [facility] hospitalist on duty at [facility] 24 hours a day by calling [phone] Pending Studies at Discharge: Yes Studies:: Final Wound Cultures Stand-Alone Forms: My [facility], Smoking Cessation Medications and DC Order Prescriptions: New Renal Caps 1 mg Capsule 1 cap PO QAM Qty: 30 RF: 0 Continued cholecalciferol (vitamin D3) 125 mcg (5,000 unit) capsule 125 mcg PO QAM RF: 0 amlodipine 10 mg tablet 10 mg PO QAM RF: 0 levothyroxine 125 mcg tablet 125 mcg PO DAILYBB RF: 0 Glucagon Emergency Kit (human) 1 mg Recon Soln 0 mg IM UD RF: 0 labetalol 100 mg tablet 100 mg PO BID RF: 0 Humulin N NPH Insulin KwikPen 100 unit/mL (3 mL) Insulin Pen 35 unit SUBCUT BID RF: 0 insulin aspart U-100 [Novolog U-100 Insulin aspart] 100 unit/mL Solution 1 sliding scale dose SUBCUT USEASDIRECTD RF: 0 hydromorphone 4 mg tablet 4 mg PO Q6H PRN (Reason: Pain) RF: 0 methadone 5 mg Tablet 5 mg PO QPM RF: 0 gabapentin 100 mg capsule 200 mg PO TID RF: 0 Discontinued furosemide [Lasix] 40 mg tablet 60 mg PO BID RF: 0 losartan 25 mg tablet 25 mg PO QAM RF: 0 doxycycline hyclate 100 mg capsule 100 mg PO QAM RF: 0 Discharge Orders: Discharge Order (Routine); Ordered 04/12/21 Ordered By: Mor Bobby Admission Data Admit Date/Time: 04/05/21 03:22 Attending Provider: Mor Bobby Admit Provider: Mateusz Carrizales Primary Care Provider: Edy Eddy Other Providers: Mateusz Carrizales ; Anjana Mcnamara I. ; Lucio Orourke ; Sharon Aleman ; Rigo Strong ; Guille Abbott ; Jocelynn Flores ; Jorge Arriola I. ; Teja Ayers II ; Sherine Oakes ; Eliceo Lilly ; Vasu Antunez ; [facility]
== END 2021-04-12 14:39 | disposition home health service (06) | DRG 853 ==
LOC: ED 15:07 → OR 04-05 00:30 → SUATTDRO 04-05 03:22 → 1E 04-05 03:22 → 2W 04-06 17:36

== ENCOUNTER 2021-07-30 12:17 | Inpatient (IN) ==
--- NOTE | 2021-07-30 12:32 | Emergency Department Note ---
History of Present Illness General Chief complaint: Wound Stated complaint: WOUND ON LT FOOT, REF BY Time Seen by Provider: 07/30/21 12:24 History of Present Illness This is a 55-year-old female that presents to the emergency department via private vehicle accompanied by male with complaints of "wound on left foot, fatigue". The patient notes that she is on dialysis. She participates in dialysis Wednesday, and Wednesday. This was performed in [facility]. She has not missed any sessions recently. She has felt fatigued over the past 1.5 weeks. She notes decreased strength. She feels chills at times. She also notes that her chronic left foot wound has acutely worsened over the past 2 days. She went to the wound care center today and was referred here for further evaluation and management and likely surgical debridement of the patient's wound. She denies any pain. No chest pain or shortness of breath. She denies any antibiotic allergies. Home Medications Medication Instructions Recorded Confirmed Type hydromorphone 4 mg tablet 8 mg PO Q3H PRN 03/15/21 07/30/21 History insulin aspart U-100 100 unit/mL 1 sliding scale dose SUBCUT 03/15/21 07/30/21 History subcutaneous solution (Novolog USEASDIRECTD U-100 Insulin aspart) levothyroxine 125 mcg tablet 125 mcg PO DAILYBB 03/15/21 07/30/21 History methadone 5 mg tablet 10 mg PO TID 03/15/21 07/30/21 History gabapentin 100 mg capsule 200 mg PO TID 04/07/21 07/30/21 History docusate sodium 100 mg capsule 100 mg PO DAILY 06/11/21 07/30/21 History (Colace) insulin NPH isoph U-100 human 100 30 unit SUBCUT BID ml 06/11/21 07/30/21 History unit/mL (3 mL) subcutaneous pen (Humulin N NPH U-100 Insulin KwikPen) sevelamer carbonate 800 mg tablet 1,600 mg PO TIDM 07/30/21 07/30/21 History (Renvela) Allergies Allergy/AdvReac Type Severity Reaction Status Date / Time Iodinated Contrast Media AdvReac Severe Patient Verified 07/30/21 15:21 has kidney failure omeprazole AdvReac Severe Increased Verified 07/30/21 15:21 her acid reflux Past Med/Surg History Medical History Acid reflux Amputation of right great toe Anemia Diabetes Diabetic retinopathy ESRD (end stage renal disease) not on dialysis H/O vocal cord paralysis Right side Hypertension MRSA bacteremia 2017; unclear if vertebral or R diabetic foot wound source Neuroendocrine tumor (12/05/19) Pneumonia (10/05/13) Retinal hemorrhage, right eye Sepsis Shortness of breath (10/05/13) Thyroid cancer Thyroid nodule Surgical History AVF (arteriovenous fistula) endovascular L; created 09/2020 H/O thyroidectomy Partial thyroidectomy History of cholecystectomy History of surgery 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 Brother No problems noted. Sister Dialysis patient Kidney disease Daughter No problems noted. Daughter Diabetes Social History Smoking Status: Never smoker Second Hand Exposure: No; Do You Dip or Chew Tobacco: No; Tobacco Cessation Education Requested by Patient: No Hx Alcohol Use: No Hx Substance Use: No Preferred Language: Macanese Communication Ability: Effective Visual Impairment: No Limitations Hearing Ability: Normal Leadership Recruiter Required: No Beliefs That Will Affect Care: None marital status: Current Living Situation: Spouse current occupational status: disabled How many Children do You have: 2 Other Information That Helps Us Care for You: No Feels Safe at Home: Yes Safety Concerns: Feels Safe At This Time caffeine: No during the past year weight has: remained stable Assistive Devices: Glasses Review of Systems A total of 10 systems reviewed and were otherwise negative Physical Exam Vital Signs Vital Signs - 24 hr 07/30/21 12:20 07/30/21 14:18 Temperature 36.6 C Temperature Source Temporal Artery Scan Pulse Rate 106 H Pulse Rate [Apical] 91 H Respiratory Rate 18 20 Respiratory Effort / Characteristics Non-Labored Respiratory Depth Normal Normal Respiratory Pattern Regular Blood Pressure 114/52 L Blood Pressure Mean 72 Pulse Oximetry 96 Oxygen Delivery Method Room Air Room Air Sepsis Recent Fever Within 48 Hours No Sepsis New/Unexplained Change in Mental Status No Sepsis Action Taken by Nursing No Action Required VITAL SIGNS - Vital signs and nursing notes were reviewed. Mildly hypertensive, otherwise stable. GENERAL -55-year-old female appearing her stated age who is in no acute distress. Communicates well with provider and answers questions appropriately. SKIN -large open wound to the left lateral midfoot region. No purulence. Mild granulation tissue visualized in the wound channel. HEAD - NC/AT. EYES - Sclera anicteric. MOUTH/OROPHARYNX - Without perioral cyanosis. NECK - Neck with FROM. No nuchal rigidity. LUNGS - Chest wall symmetric without accessory muscle use, intercostals retractions, or central cyanosis. Normal vesicular breath sounds CTA B/L. No wheezes, rales, or rhonchi appreciated. CARDIAC - RRR with S1/S2. No murmur, rubs, or gallops appreciated. ABDOMEN - Abdominal contour normal without pulsations or visible masses. BS normoactive all four quadrants. No tenderness, palpable masses, hepatosplenomegaly, or ascites noted. EXTREMITIES - No clubbing or peripheral cyanosis. +5/5 strength noted in UE/LE bilaterally. NEUROLOGIC - Cranial nerves II through XII grossly intact. PSYCH - A&O, and cooperates fully with examiner. Pt is very pleasant and interac ts well with examiner. Course Administered Medications Docusate Sodium (Docusate Sodium 100 Mg Cap) 100 mg PO BID KIRT Stop: 08/29/21 20:59 Last Admin: 07/30/21 20:09 Dose: 100 mg Documented by: [id number] Gabapentin (Gabapentin 100 Mg Cap) 200 mg PO TID KIRT Stop: 08/29/21 20:59 Last Admin: 07/30/21 20:09 Dose: 200 mg Documented by: [id number] Heparin Sodium (Porcine) (Heparin Sod 5,000 Unit/0.5 Ml Vial) 5,000 units SQ Q8 KIRT Stop: 08/29/21 21:59 Last Admin: 07/30/21 21:11 Dose: 5,000 units Documented by: [id number] Insulin Aspart (Insulin Aspart Per Unit) 0 units SC ACHS KIRT Stop: 08/29/21 18:40 Last Admin: 07/30/21 20:21 Dose: Not Given Documented by: [id number] Cosigned by: [id number] Admin: 07/30/21 20:03 Dose: Not Given Documented by: [id number] Cosigned by: [id number] Insulin Human NPH (Insulin Human Nph) 0 - 24 units SC BIDM KIRT Stop: 08/29/21 19:29 Last Admin: 07/30/21 20:12 Dose: 12 units Documented by: [id number] Cosigned by: [id number] Methadone HCl (Methadone Hcl 5 Mg Tab) 5 mg PO TID KIRT Stop: 08/13/21 20:59 Last Admin: 07/30/21 20:17 Dose: 5 mg Documented by: [id number] Sevelamer HCl (Sevelamer Hcl 800 Mg Tablet) 1,600 mg PO TIDM KIRT Stop: 08/29/21 19:14 Last Admin: 07/30/21 20:10 Dose: 1,600 mg Documented by: [id number] Discontinued Medications Cefepime HCl (Maxipime) 20 mls @ 5 mls/min IV NOW STA Stop: 07/30/21 14:09 Last Admin: 07/30/21 14:35 Dose: 5 mls/min Documented by: [id number] Vancomycin HCl 1,750 mg/ (Sodium Chloride) 535 mls @ 200 mls/hr IV ONE ONE Stop: 07/30/21 18:55 Last Infusion: 07/30/21 21:12 Dose: 0 mls/hr Documented by: [id number] Admin: 07/30/21 17:46 Dose: 200 mls/hr Documented by: [id number] Potassium Chloride (Potassium Chloride Crtab 20 Meq Tabcr) 40 meq PO NOW STA Stop: 07/30/21 15:57 Last Admin: 07/30/21 16:13 Dose: 40 meq Documented by: [id number] Medical Decision Making Laboratory Data Result diagrams: 07/30/21 12:48 07/30/21 14:28 Lab Results 07/30/21 07/30/21 07/30/21 Range/Units 12:48 12:48 12:48 WBC 7.78 (4.8-10.8) K/uL RBC 2.58 L (4.2-5.4) M/uL Hgb 7.6 L (12.0-16.0) g/dL Hct 24.9 L (37-47) % MCV 96.5 (80-100) fL MCH 29.5 (25-34) pg MCHC 30.5 L (32-36) g/dL RDW Std Deviation 59.8 H (36.4-46.3) fL RDW Coeff of Padmini 17.0 H (11.5-14.5) % Plt Count 218 (130-400) K/uL MPV 10.1 (7.4-10.4) fL Immature Gran % (Auto) 0.3 % Neut % (Auto) 89.2 % Lymph % (Auto) 2.6 % Bates % (Auto) 7.5 % Eos % (Auto) 0.3 % Baso % (Auto) 0.1 % Neut # (Auto) 6.95 H (1.4-6.5) K/uL Lymph # (Auto) 0.20 L (1.2-3.4) K/uL Bates # (Auto) 0.58 (0.11-0.59) K/uL Eos # (Auto) 0.02 (0-0.5) K/uL Baso # (Auto) 0.01 (0-0.2) K/uL Immature Gran # (Auto) 0.02 (0.00-0.02) K/uL Rouleaux 1+ ESR 77 H (0-30) mm/hr Sodium (136-145) mmol/L Potassium Chloride (98-107) mmol/L Carbon Dioxide (21-32) mmol/L Anion Gap (3-11) BUN (6-23) mg/dl Creatinine (0.6-1.2) mg/dl Est Cr Clr Drug Dosing Est GFR ( Amer) ml/min Est GFR (Non-Af Amer) ml/min BUN/Creatinine Ratio (10-20) Glucose (70-99(Fasting)) mg/dl Calcium (8.5-10.1) mg/dl Total Bilirubin (0.2-1.0) mg/dl AST ALT (7-52) U/L Alkaline Phosphatase (34-104) U/L Troponin I (0-0.04) ng/ml C-Reactive Protein (0-0.5) mg/dl Total Protein (6.0-8.3) gm/dl Albumin (3.4-5.0) gm/dl Globulin (2.5-4.0) gm/dl Albumin/Globulin Ratio (0.9-2) Procalcitonin 6.79 H (0-0.5) ng/ml SARS-CoV-2, RNA, NAAT (NEGATIVE) Blood Type Antibody Screen 07/30/21 07/30/21 07/30/21 Range/Units 12:48 13:05 13:37 WBC (4.8-10.8) K/uL RBC (4.2-5.4) M/uL Hgb (12.0-16.0) g/dL Hct (37-47) % MCV (80-100) fL MCH (25-34) pg MCHC (32-36) g/dL RDW Std Deviation (36.4-46.3) fL RDW Coeff of Padmini (11.5-14.5) % Plt Count (130-400) K/uL MPV (7.4-10.4) fL Immature Gran % (Auto) % Neut % (Auto) % Lymph % (Auto) % Bates % (Auto) % Eos % (Auto) % Baso % (Auto) % Neut # (Auto) (1.4-6.5) K/uL Lymph # (Auto) (1.2-3.4) K/uL Bates # (Auto) (0.11-0.59) K/uL Eos # (Auto) (0-0.5) K/uL Baso # (Auto) (0-0.2) K/uL Immature Gran # (Auto) (0.00-0.02) K/uL Rouleaux ESR (0-30) mm/hr Sodium 135 L (136-145) mmol/L Potassium TNP Chloride 98 (98-107) mmol/L Carbon Dioxide 28 (21-32) mmol/L Anion Gap 9 (3-11) BUN 33 H (6-23) mg/dl Creatinine 3.37 H (0.6-1.2) mg/dl Est Cr Clr Drug Dosing Not Reportable Est GFR ( Amer) 17.0 ml/min Est GFR (Non-Af Amer) 14.7 ml/min BUN/Creatinine Ratio 9.8 L (10-20) Glucose 128 H (70-99(Fasting)) mg/dl Calcium 9.0 (8.5-10.1) mg/dl Total Bilirubin 0.6 (0.2-1.0) mg/dl AST TNP ALT 44 (7-52) U/L Alkaline Phosphatase 53 (34-104) U/L Troponin I 0.03 (0-0.04) ng/ml C-Reactive Protein 26.37 H (0-0.5) mg/dl Total Protein 7.5 (6.0-8.3) gm/dl Albumin 2.8 L (3.4-5.0) gm/dl Globulin 4.7 H (2.5-4.0) gm/dl Albumin/Globulin Ratio 0.6 L (0.9-2) Procalcitonin (0-0.5) ng/ml SARS-CoV-2, RNA, NAAT NEGATIVE (NEGATIVE) Blood Type O Positive Antibody Screen NEGATIVE 07/30/21 Range/Units 14:28 WBC (4.8-10.8) K/uL RBC (4.2-5.4) M/uL Hgb (12.0-16.0) g/dL Hct (37-47) % MCV (80-100) fL MCH (25-34) pg MCHC (32-36) g/dL RDW Std Deviation (36.4-46.3) fL RDW Coeff of Padmini (11.5-14.5) % Plt Count (130-400) K/uL MPV (7.4-10.4) fL Immature Gran % (Auto) % Neut % (Auto) % Lymph % (Auto) % Bates % (Auto) % Eos % (Auto) % Baso % (Auto) % Neut # (Auto) (1.4-6.5) K/uL Lymph # (Auto) (1.2-3.4) K/uL Bates # (Auto) (0.11-0.59) K/uL Eos # (Auto) (0-0.5) K/uL Baso # (Auto) (0-0.2) K/uL Immature Gran # (Auto) (0.00-0.02) K/uL Rouleaux ESR (0-30) mm/hr Sodium (136-145) mmol/L Potassium 3.1 L Chloride (98-107) mmol/L Carbon Dioxide (21-32) mmol/L Anion Gap (3-11) BUN (6-23) mg/dl Creatinine (0.6-1.2) mg/dl Est Cr Clr Drug Dosing Est GFR ( Amer) ml/min Est GFR (Non-Af Amer) ml/min BUN/Creatinine Ratio (10-20) Glucose (70-99(Fasting)) mg/dl Calcium (8.5-10.1) mg/dl Total Bilirubin (0.2-1.0) mg/dl AST 64 H ALT (7-52) U/L Alkaline Phosphatase (34-104) U/L Troponin I (0-0.04) ng/ml C-Reactive Protein (0-0.5) mg/dl Total Protein (6.0-8.3) gm/dl Albumin (3.4-5.0) gm/dl Globulin (2.5-4.0) gm/dl Albumin/Globulin Ratio (0.9-2) Procalcitonin (0-0.5) ng/ml SARS-CoV-2, RNA, NAAT (NEGATIVE) Blood Type Antibody Screen Imaging Data Radiologist's Impression: Foot X-Ray 07/30/21 12:41 XR foot LT min 3V routine HISTORY: 55 years-old Female L foot wound patient presents with chronic left foot: COMPARISON: CT left foot 04/25/2021 TECHNIQUE: 3 views of the left foot FINDINGS: Moderate diffuse soft tissue swelling. Moderate multifocal osteoarthritis. Soft tissue gas is noted within the forefoot, midfoot and hindfoot. Large soft tissue wound of the lateral midfoot forefoot junction measures up to approximately 7 cm. Cortical erosions are noted involving the plantar lateral base of the fifth metatarsal and cuboid. Sclerosis with cortical thickening involves the bases of the fourth metatarsal base. Marginal spurring of the calcaneus. IMPRESSION: 1. Large soft tissue wound of the lateral and plantar forefoot and midfoot junction redemonstrated with soft tissue swelling and soft tissue gas. The gas may be secondary to direct extension from the wound versus gas forming organism/fasciitis. 2. Osteomyelitis involves the base of the fifth metatarsal and the cuboid. Mild additional cortical thickening is noted within the fourth metatarsal base, also possibly area representative of osteomyelitis. ACT 112: Negative or not required by law. The above report was generated using voice recognition software. It may contain grammatical, syntax or spelling errors. Electronically signed by: Rajeev Roblero M.D. 07/30/2021 2:06 PM MDM Narrative Patient was seen and evaluated as above in room D09. Review was performed of nursing notes and vital signs. I did review pertinent previous visits and patient history. After obtaining a thorough history and physical examination the above work up was performed. Patient presents to us today with an ongoing foot infection that is now worsening. She feels fatigued as well over the past 1.5 weeks. Vital signs overall stable. She is nontoxic on examination. Large chronic appearing wound to the left lateral foot with surrounding erythema. Options of care were discussed with the patient. IV access was established. Labs were drawn. She was empirically given IV cefepime. I did review the wound care visit note from today from [facility] as well as obtained her MRI report and cultures. These were reviewed. The recent MRI on 07/25 suggested osteomyelitis. X-ray today suggest the same. Labs reveal no gabriela kocytosis. Anemia noted but is similar to previous. There is ESR and CRP elevation. Creatinine 3.37 consistent with the patient's dialysis state. Pro- Zhen 6.79. CRP elevated. Troponin within normal range. Covid testing negative. EKG was obtained noting the patient complaining of fatigue in the setting of anemia however there is no sign on this EKG to suggest STEMI. EKG reveals normal sinus rhythm at a rate of 95 bpm. QTc 457. QRS 92. No ST elevation. No significant change compared EKG of April 25 2021. I do believe that further evaluation and management the inpatient setting is warranted. Case discussed with the hospitalist, ED attending physician as well as the orthopedic service. I did consent the patient to blood transfusion in the event that this is needed to streamline patient's care. I do not believe that transfusion emergently is indicated. Please refer to further documentation regarding her stay GCS: 15 In the evaluation and treatment of this patient the following differential diagnoses were entertained: Necrotizing fasciitis, cellulitis, necrotic wound, arterial compromise, among others. Impression & Plan Osteomyelitis of left foot, Ulcer of left midfoot Discharge Plan Visit Data Chief Complaint: Wound Stated Complaint: WOUND ON LT FOOT, REF BY ED Provider: Yasmany Lam ED Midlevel Provider: Joaquim Connolly Discharge Problem: Osteomyelitis of left foot, Ulcer of left midfoot Patient Disposition: Admitted As Inpatient Condition: Good Discharge Instructions Interventions: ED Discharge Assessment Last Done: 07/30/21 17:59
[2021-07-30 13:30] LABS: Basophils # (auto) 0.01 K/uL (0-0.2); Basophils % (auto) 0.1 %; Eosinophils # (auto) 0.02 K/uL (0-0.5); Eosinophils % (auto) 0.3 %; Hematocrit (blood only) 24.9 % (37-47); Hemoglobin 7.6 g/dL (12.0-16.0); Immature Granulocytes # (auto) 0.02 K/uL (0.00-0.02); Immature Granulocytes % (auto) 0.3 %; Lymphocytes % (auto) 2.6 %; Mean Corpuscular Hemoglobin 29.5 pg (25-34); Mean Corpuscular Hgb Conc 30.5 g/dL (32-36); Mean Corpuscular Volume 96.5 fL (80-100); Mean Platelet Volume 10.1 fL (7.4-10.4); Monocytes # (auto) 0.58 K/uL (0.11-0.59); Monocytes % (auto) 7.5 %; Neutrophils # (auto) 6.95 K/uL (1.4-6.5); Neutrophils % (auto) 89.2 %; Platelet Count 218 K/uL (130-400); RDW Standard Deviation 59.8 fL (36.4-46.3); Red Blood Count 2.58 M/uL (4.2-5.4); White Blood Count 7.78 K/uL (4.8-10.8)
[2021-07-30 14:01] LABS: Rouleaux 1+
[2021-07-30] MEDS ORDERED: CEFEPIME 20 ML IV STA (14:06)
[2021-07-30 14:08] LABS: Alanine Aminotransferase 44 U/L (7-52); Albumin Globulin Ratio 0.6 (0.9-2); Albumin Level 2.8 gm/dl (3.4-5.0); Alkaline Phosphatase 53 U/L (34-104); Anion Gap 9 (3-11); BUN Creatinine Ratio 9.8 (10-20); Bilirubin,Total 0.6 mg/dl (0.2-1.0); Blood Urea Nitrogen 33 mg/dl (6-23); C Reactive Protein 26.37 mg/dl (0-0.5); Carbon Dioxide 28 mmol/L (21-32); Chloride 98 mmol/L (98-107); Est GFR (Non-African American) 14.7 ml/min; Globulin 4.7 gm/dl (2.5-4.0); Glucose 128 mg/dl (70-99(Fasting)); Sodium 135 mmol/L (136-145); Total Protein 7.5 gm/dl (6.0-8.3)
--- NOTE | 2021-07-30 14:08 | XRay Report ---
XR foot LT min 3V routine HISTORY: 55 years-old Female L foot wound patient presents with chronic left foot: COMPARISON: CT left foot 04/25/2021 TECHNIQUE: 3 views of the left foot FINDINGS: Moderate diffuse soft tissue swelling. Moderate multifocal osteoarthritis. Soft tissue gas is noted w ithin the forefoot, midfoot and hindfoot. Large soft tissue wound of the lateral midfoot forefoot ryder ction measures up to approximately 7 cm. Cortical erosions are noted involving the plantar lateral ba se of the fifth metatarsal and cuboid. Sclerosis with cortical thickening involves the bases of the f ourth metatarsal base. Marginal spurring of the calcaneus. IMPRESSION: 1. Large soft tissue wound of the lateral and plantar forefoot and midfoot junction redemonstrated wi th soft tissue swelling and soft tissue gas. The gas may be secondary to direct extension from the wo und versus gas forming organism/fasciitis. 2. Osteomyelitis involves the base of the fifth metatarsal and the cuboid. Mild additional cortical t hickening is noted within the fourth metatarsal base, also possibly agency service representative of osteomyelitis. ACT 112: Negative or not required by law. The above report was generated using voice recognition software. It may contain grammatical, syntax o r spelling errors. Electronically signed by: Rajeev Roblero M.D. 07/30/2021 2:06 PM
[2021-07-30 14:23] LABS: Troponin I 0.03 ng/ml (0-0.04)
[2021-07-30 15:01] LABS: Potassium 3.1 mmol/L (3.5-5.1)
--- NOTE | 2021-07-30 15:12 | History & Physical Report ---
Date of Service July 30, 2021 Assessment & Plan (1) Osteomyelitis of left foot: (2) Ulcer of left midfoot: (3) Insulin dependent diabetes mellitus: (4) ESRD (end stage renal disease): Plan: This is a 55-year-old female who has significant past medical history of insulin-dependent T2DM, end-stage renal disease on hemodialysis Wednesday, , Wednesday, diabetic neuropathy, HTN, HLD, hyperparathyroidism, anemia of renal disease, history of MRSA bacteremia, metastatic neuroendocrine carcinoma, chronic left foot wound who presents to ED due to worsening of wound for the past 2 weeks. Left foot osteomyelitis Ulcer of left midfoot Admit to med telemetry Consult orthopedics Dr. Pat, Discussed case with UNIQUE Kor[facility] IV vancomycin and cefepime -recent wound cultures grew Pseudomonas and MRSA Had outpatient MRI at [facility], orthopedics requesting repeat MRI of left foot, will do without contrast given renal function Arterial vascular duplex of left lower extremity CRP 26.37 Wound care, nonweightbearing to left lower extremity Tentative plan for OR on wednesday Insulin-dependent T2DM Last A1c 04/07/2021 5.6 NPH, NovoLog per protocol Glycemic pharmacy, appreciate their management Obtain A1c in a.m. End-stage renal disease on hemodialysis Hemodialysis is Wednesday Consult nephrology renal diet, FR Neuroendocrine carcinoma with metastatic disease Chronic pain secondary to cancer, follows palliative care for pain management On methadone and hydromorphone s/p XRT, follows Dr. Hannon Anemia of renal disease hgb 7.7, chronically runs low type and screen done will defer to nephrology, transfuse hgb < 7 or unless symptomatic DVT ppx: Heparin SQ, will need held prior to surgery Dispo: med tele PCP: [facility] FULL CODE Pt was seen and examined in collaboration with Dr. Parmar, please see addendum History of Present Illness Chief Complaint: Worsening L foot wound x 2 weeks. Primary Care Provider: Edy Eddy MD This is a 55-year-old female who has significant past medical history of insulin-dependent T2DM, end-stage renal disease on hemodialysis Wednesday, , Wednesday, diabetic neuropathy, HTN, HLD, hyperparathyroidism, anemia of renal disease, history of MRSA bacteremia, metastatic neuroendocrine carcinoma, chronic left foot wound who presents to ED due to worsening of wound for the past 2 weeks. Patient follows [facility] wound clinic. Notes were reviewed from wound clinic. She was last seen today. Patient reports over the last 2 days noticing a very dramatic change in the left wound with worsening. She had been receiving IV Dalvance. She further complains of feeling very fatigued, ill feeling and difficulty walking. Per report medical equipment sales felt foot clearly was much worse than last week, more edematous and erythematous. Patient's wound care physician referred her to ER for admission, IV antibiotics and surgical I&D. She did have an outpatient MRI done on 07/25 and report was obtained about outside facility. MRI shows findings strongly concerning for osteomyelitis at the base of the fifth metatarsal as well as high signal noted within the cuboid and the proximal aspect of the third and fourth metatarsals likely representing stress marrow edema. Wound cultures from outpatient setting on 05/14 grew Pseudomonas and on 07/09 grew moderate strep viridans and MRSA. She complains of feeling, "In a fog," and feeling unwell. She complains of chills, nausea, vomiting, L foot pain, increased redness to L foot and overall poor appetite for the past 1.5 weeks. She denies documented fever, sweats, chest pain, sob, cough, URI sx, hemoptysis, abd pain, diarrhea. She does not make urine. Allergies Allergy/AdvReac Type Severity Reaction Status Date / Time Iodinated Contrast Media AdvReac Severe Patient Verified 07/30/21 15:21 has kidney failure omeprazole AdvReac Severe Increased Verified 07/30/21 15:21 her acid reflux Home Medications Medication Instructions Recorded Confirmed Type hydromorphone 4 mg tablet 8 mg PO Q3H PRN 03/15/21 07/30/21 History insulin aspart U-100 100 unit/mL 1 sliding scale dose SUBCUT 03/15/21 07/30/21 History subcutaneous solution (Novolog USEASDIRECTD U-100 Insulin aspart) levothyroxine 125 mcg tablet 125 mcg PO DAILYBB 03/15/21 07/30/21 History methadone 5 mg tablet 10 mg PO TID 03/15/21 07/30/21 History gabapentin 100 mg capsule 200 mg PO TID 04/07/21 07/30/21 History docusate sodium 100 mg capsule 100 mg PO DAILY 06/11/21 07/30/21 History (Colace) insulin NPH isoph U-100 human 100 30 unit SUBCUT BID ml 06/11/21 07/30/21 History unit/mL (3 mL) subcutaneous pen (Humulin N NPH U-100 Insulin KwikPen) sevelamer carbonate 800 mg tablet 1,600 mg PO TIDM 07/30/21 07/30/21 History (Renvela) Past Med/Surg History Medical History Acid reflux Amputation of right great toe Anemia Diabetes Diabetic retinopathy ESRD (end stage renal disease) not on dialysis H/O vocal cord paralysis Right side Hypertension MRSA bacteremia 2017; unclear if vertebral or R diabetic foot wound source Neuroendocrine tumor (12/05/19) Pneumonia (10/05/13) Retinal hemorrhage, right eye Sepsis Shortness of breath (10/05/13) Thyroid cancer Thyroid nodule Surgical History AVF (arteriovenous fistula) endovascular L; created 09/2020 H/O thyroidectomy Partial thyroidectomy History of cholecystectomy History of surgery 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 Brother No problems noted. Sister Dialysis patient Kidney disease Daughter No problems noted. Daughter Diabetes Social History Smoking Status: Never smoker Second Hand Exposure: No; Hx Alcohol Use: No Hx Substance Use: No Preferred Language: [place] Leonean Communication Ability: Effective Visual Impairment: No Limitations Hearing Ability: Normal Apprentice Funeral Director Required: No Beliefs That Will Affect Care: None marital status: Current Living Situation: Spouse current occupational status: disabled How many Children do You have: 2 Feels Safe at Home: Yes caffeine: No during the past year weight has: remained stable Assistive Devices: Glasses Review of Systems Review of Systems: All systems reviewed & are unremarkable except as noted in HPI & below Physical Exam Physical Exam: Constitutional: WD/WN, vitals as above, NAD, sitting up in bed, pleasant, conversing easily Head: Normocephalic, Atraumatic Eyes: PERRL, conjunctivae normal, anicteric sclerae ENMT: external ear and nose normal, oropharynx normal Neck: trachea midline, no thyromegaly normal visual inspection Respiratory: normal respiratory effort, lungs clear to auscultation, no wheeze, rales, rhonchi. Normal insp/exp effort, no accessory muscle use Cardiovascular: RRR, 1/6 FAINA noted RUSB, no edema Vessels: no JVD or carotid bruit Chest:R ACW Port ACCESS, LUE AV FISTULA. normal inspection of chest Abdomen: normal bowel sounds, soft, nontender, no hepatosplenomegaly Musculoskeletal: no cyanosis or clubbing, extremities motor strength 5/5 Skin: Large open wound to the lateral aspect of L mid foot, No radha drainage, surrounding erythema to dorsal aspect of L foot, along with pretibial edema. Diminished L pedal puse. no rashes, warm and dry normal turgor Neurologic: PERRL, EOMI, accommodation nl, no face palsy, no dysarthria CN's II-XI intact bilaterally and moves all extremities Psychiatric: A+Ox3, euthymic affect Lymphatic: no cervical or axillary lymphadenopathy : deferred Results & Data Results & Data ([facility]) Vital Signs (Past 12 Hours) Vital Signs Temp Pulse Pulse Resp BP Pulse Ox 07/30/21 14:18 91 H 20 07/30/21 12:20 36.6 C 106 H 18 114/52 L 96 Diagnostic Findings Foot X-Ray 07/30/21 12:41 XR foot LT min 3V routine HISTORY: 55 years-old Female L foot wound patient presents with chronic left foot: COMPARISON: CT left foot 04/25/2021 TECHNIQUE: 3 views of the left foot FINDINGS: Moderate diffuse soft tissue swelling. Moderate multifocal osteoarthritis. Soft tissue gas is noted within the forefoot, midfoot and hindfoot. Large soft tissue wound of the lateral midfoot forefoot junction measures up to approximately 7 cm. Cortical erosions are noted involving the plantar lateral base of the fifth metatarsal and cuboid. Sclerosis with cortical thickening involves the bases of the fourth metatarsal base. Marginal spurring of the calcaneus. IMPRESSION: 1. Large soft tissue wound of the lateral and plantar forefoot and midfoot junction redemonstrated with soft tissue swelling and soft tissue gas. The gas may be secondary to direct extension from the wound versus gas forming organism/fasciitis. 2. Osteomyelitis involves the base of the fifth metatarsal and the cuboid. Mild additional cortical thickening is noted within the fourth metatarsal base, also possibly payable representative of osteomyelitis. ACT 112: Negative or not required by law. The above report was generated using voice recognition software. It may contain grammatical, syntax or spelling errors. Electronically signed by: Rajeev Roblero M.D. 07/30/2021 2:06 PM Medications Administered Medication List Discontinued Medications Cefepime HCl (Maxipime) 20 mls @ 5 mls/min IV NOW STA Stop: 07/30/21 14:09 Last Admin: 07/30/21 14:35 Dose: 5 mls/min Documented by: [id number] ECG Rate (beats per minute): 95 Rhythm: normal sinus COVID-19 Results Results COVID-19 Adm Lab Results: RBC 2.58 M/uL (4.2-5.4) L 07/30/21 WBC 7.78 K/uL (4.8-10.8) 07/30/21 Hgb 7.6 g/dL (12.0-16.0) L 07/30/21 Hct 24.9 % (37-47) L 07/30/21 Plt Count 218 K/uL (130-400) 07/30/21 Neutrophils (%) (Auto) 89.2 % 07/30/21 Lymphocytes (%) (Auto) 2.6 % 07/30/21 Monocytes # (Auto) 0.58 K/uL (0.11-0.59) 07/30/21 Eosinophils # (Auto) 0.02 K/uL (0-0.5) 07/30/21 Immature Granulocyte % (Auto) 0.3 % 07/30/21 Neutrophils # (Auto) 6.95 K/uL (1.4-6.5) H 07/30/21 Lymphocytes # (Auto) 0.20 K/uL (1.2-3.4) L 07/30/21 Monocytes # (Auto) 0.58 K/uL (0.11-0.59) 07/30/21 Eosinophils # (Auto) 0.02 K/uL (0-0.5) 07/30/21 Basophils # (Auto) 0.01 K/uL (0-0.2) 07/30/21 Immature Granulocyte # (Auto) 0.02 K/uL (0.00-0.02) 07/30/21 Rouleau 1+ 07/30/21 Na 135 mmol/L (136-145) L 07/30/21 K 3.1 mmol/L (3.5-5.1) L 07/30/21 Cl 98 mmol/L (98-107) 07/30/21 CO2 28 mmol/L (21-32) 07/30/21 Anion Gap 9 (3-11) 07/30/21 BUN 33 mg/dl (6-23) H 07/30/21 Creatinine 3.37 mg/dl (0.6-1.2) H 07/30/21 BUN/Creatinine Ratio 9.8 (10-20) L 07/30/21 Glucose Level 128 mg/dl (70-99(Fasting)) H 07/30/21 Ca 9.0 mg/dl (8.5-10.1) 07/30/21 Total Bilirubin 0.6 mg/dl (0.2-1.0) 07/30/21 AST/SGOT 64 U/L (13-39) H 07/30/21 ALT/SGPT 44 U/L (7-52) 07/30/21 Alkaline Phosphatase 53 U/L (34-104) 07/30/21 Total Protein 7.5 gm/dl (6.0-8.3) 07/30/21 Albumin 2.8 gm/dl (3.4-5.0) L 07/30/21 Globulin 4.7 gm/dl (2.5-4.0) H 07/30/21 Albumin/Globulin Ratio 0.6 (0.9-2) L 07/30/21 Troponin I 0.03 ng/ml (0-0.04) 07/30/21 CRP 26.37 mg/dl (0-0.5) H 07/30/21 Procalcitonin 6.79 ng/ml (0-0.5) H 07/30/21 SARS-CoV-2, RNA, NAAT NEGATIVE (NEGATIVE) 07/30/21 Code Status & VTE Plan Code Status FULL CODE VTE Prophylaxis Plan VTE Prophylaxis will be ordered: No Supervising Physician Co-Signing Physician Notes Attending addendum: The patient was seen and examined in emergency room in presence of the She has been complaining of pain, swelling and redness involving the left foot and leg She was seen by the wound clinic and was noted to have worsening of her left foot wound Outpatient MRI did show osteomyelitis Denies any fever and/or chills On examination No acute distress at rest Hemodynamically stable with pulse around 94 Chestclear to auscultate bilaterally HeartS1-S2, regular Abdomenbenign Extremitiesleft foot is bandaged, swelling of the left leg with redness and tenderness locally confined to the foot and the lower part of the leg CNSalert, awake and oriented x3 Her labs, imaging studies reviewed She has diabetes on insulin with diabetic nephropathy and neuropathy Now has osteomyelitis involving the left fifth metatarsal and cuboid bones as per the imaging studies She also has and is renal disease on hemodialysis She will be started with intravenous cefepime and vancomycin Ortho has been consulted and information technology manager to continue hemodialysis Agree with assessment and plan as outlined above by Ximena Parmar
[2021-07-30] MEDS ORDERED: VANCOMYCIN CONSULT ACTIVE PRN ×2 (15:44→18:41)
--- NOTE | 2021-07-30 15:48 | Orthopedic Consultation ---
Date of Consultation July 30, 2021 Assessment & Plan (1) Osteomyelitis of left foot: Infection left lateral diabetic ulcer with osteomyelitis noted on plain films showing osteomyelitis likely at the base the fifth metatarsal as well as the cuboid. Case has been discussed with Dr. Pat. As well as Lilia Waite PA-C. Patient will require a new MRI with contrast. With no dorsalis pedis pulse appreciated, we will also get a duplex artery scan to assess blood flow. Patient will require irrigation and debridement as well as possible metatarsal amputation and possible curetted versus removal of the cuboid. We will await further imaging from the MRI to make any further assessment. History of Present Illness Reason for Consultation: Infection Diabetic ulcer left foot with noted osteomyelitis on plain films History of Present Illness Patient is a 55-year-old female with past medical history of insulin-dependent type 2 diabetes mellitus, end-stage renal disease on hemodialysis Tuesdays, , Saturdays, diabetic neuropathy, hypertension, hyperlipidemia, hyperparathyroidism, anemia of renal disease, history of MRSA bacteremia, metastatic neuroendocrine carcinoma, chronic left foot wound. Patient has been receiving treatment for a left lateral foot diabetic ulcer. The patient states that this began around March of last year and it was just a very small ulceration. She has been seeing wound care from [facility] and also her child protective services social worker. She had been admitted in April of this past year for a abscess formation on her buttock. This was taken care of. At the time the left foot ulcer continue to remain small. The patient who has family with her, this family states that the there was not much emphasis on the left foot wound. Over the last few months the ulceration continue to worsen. She has been recently receiving IV Dalvance. She is continued to go to the [facility] wound clinic. Within the last few days, she had moderate increase in erythema and widening of her ulceration. An MRI was done on 07/25/2021 and apparently was just read recently. This was showing osteomyelitis per Joaquim Connolly PA-C in the ER. Plain films of the left foot that were done today in the emergency room are showing likely osteomyelitis at the fifth metatarsal as well as the cuboid. The patient's foot continued to worsen and the wound care center and also the patient's child protective services social worker thought the patient should be referred to [facility] Solo. She states that over the last several days she has been having increasing di fficulty walking with increased pain in the left foot. We have been asked to see her for this problem. Allergies Allergy/AdvReac Type Severity Reaction Status Date / Time Iodinated Contrast Media AdvReac Severe Patient Verified 07/30/21 15:21 has kidney failure omeprazole AdvReac Severe Increased Verified 07/30/21 15:21 her acid reflux Home Medications Medication Instructions Recorded Confirmed Type hydromorphone 4 mg tablet 8 mg PO Q3H PRN 03/15/21 07/30/21 History insulin aspart U-100 100 unit/mL 1 sliding scale dose SUBCUT 03/15/21 07/30/21 History subcutaneous solution (Novolog USEASDIRECTD U-100 Insulin aspart) levothyroxine 125 mcg tablet 125 mcg PO DAILYBB 03/15/21 07/30/21 History methadone 5 mg tablet 10 mg PO TID 03/15/21 07/30/21 History gabapentin 100 mg capsule 200 mg PO TID 04/07/21 07/30/21 History docusate sodium 100 mg capsule 100 mg PO DAILY 06/11/21 07/30/21 History (Colace) insulin NPH isoph U-100 human 100 30 unit SUBCUT BID ml 06/11/21 07/30/21 History unit/mL (3 mL) subcutaneous pen (Humulin N NPH U-100 Insulin KwikPen) sevelamer carbonate 800 mg tablet 1,600 mg PO TIDM 07/30/21 07/30/21 History (Renvela) Patient History Medical History Acid reflux Amputation of right great toe Anemia Diabetes Diabetic retinopathy ESRD (end stage renal disease) not on dialysis H/O vocal cord paralysis Right side Hypertension MRSA bacteremia 2017; unclear if vertebral or R diabetic foot wound source Neuroendocrine tumor (12/05/19) Pneumonia (10/05/13) Retinal hemorrhage, right eye Sepsis Shortness of breath (10/05/13) Thyroid cancer Thyroid nodule Surgical History AVF (arteriovenous fistula) endovascular L; created 09/2020 H/O thyroidectomy Partial thyroidectomy History of cholecystectomy History of surgery 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 Brother No problems noted. Sister Dialysis patient Kidney disease Daughter No problems noted. Daughter Diabetes Social History Smoking Status: Never smoker Second Hand Exposure: No; Do You Dip or Chew Tobacco: No; Tobacco Cessation Education Requested by Patient: No Hx Alcohol Use: No Hx Substance Use: No Preferred Language: Setswana Communication Ability: Effective Visual Impairment: No Limitations Hearing Ability: Normal Gear Technician Required: No Beliefs That Will Affect Care: None marital status: Current Living Situation: Spouse current occupational status: disabled How many Children do You have: 2 Other Information That Helps Us Care for You: No Feels Safe at Home: Yes Safety Concerns: Feels Safe At This Time caffeine: No during the past year weight has: remained stable Assistive Devices: Glasses Physical Exam Physical Exam: On examination, the patient is a 55-year-old white female. Alert and oriented x3, no acute distress, pleasant and cooperative. Looking at her left foot, there is a small dressing noted on the lateral aspect of her foot. This is removed. She is noted to have moderate swelling of the dorsum of her foot. As well as along the lateral aspect of her foot. She has moderate cellulitis noted on the dorsum of the foot that wraps around laterally. She has moderate edema that I cannot appreciate a dorsalis pedis pulse at this time. Looking at the lateral aspect the foot she has a 3 to 4 cm in width diabetic ulcer with some mild eschar on the proximal aspect. There is no foul odor and there is no gross purulence noted. She has more eschar noted proximally. The main portion of the ulcer is around the base of the fifth metatarsal. Her erythema does travel up the leg just slightly above the ankle. She has a dense neuropathy noted of the foot of which she states has been the same. She has some mild sensation that she can feel at her heel. The foot is warm to the touch. Cap refills less than 2 seconds. Wound redressed. Results & Data ([facility]) Vital Signs (Past 12 Hours) Vital Signs Temp Pulse Pulse Resp BP Pulse Ox 07/30/21 14:18 91 H 20 07/30/21 12:20 36.6 C 106 H 18 114/52 L 96 Diagnostic Findings Laboratory Results WBC 7.78 K/uL (4.8-10.8) 07/30/21 12:48 RBC 2.58 M/uL (4.2-5.4) L 07/30/21 12:48 Hgb 7.6 g/dL (12.0-16.0) L 07/30/21 12:48 Hct 24.9 % (37-47) L 07/30/21 12:48 MCV 96.5 fL (80-100) 07/30/21 12:48 MCH 29.5 pg (25-34) 07/30/21 12:48 MCHC 30.5 g/dL (32-36) L 07/30/21 12:48 RDW Std Deviation 59.8 fL (36.4-46.3) H 07/30/21 12:48 RDW Coeff of Padmini 17.0 % (11.5-14.5) H 07/30/21 12:48 Plt Count 218 K/uL (130-400) 07/30/21 12:48 MPV 10.1 fL (7.4-10.4) 07/30/21 12:48 Immature Gran % (Auto) 0.3 % 07/30/21 12:48 Neut % (Auto) 89.2 % 07/30/21 12:48 Lymph % (Auto) 2.6 % 07/30/21 12:48 Atkinson % (Auto) 7.5 % 07/30/21 12:48 Eos % (Auto) 0.3 % 07/30/21 12:48 Baso % (Auto) 0.1 % 07/30/21 12:48 Neut # (Auto) 6.95 K/uL (1.4-6.5) H 07/30/21 12:48 Lymph # (Auto) 0.20 K/uL (1.2-3.4) L 07/30/21 12:48 Atkinson # (Auto) 0.58 K/uL (0.11-0.59) 07/30/21 12:48 Eos # (Auto) 0.02 K/uL (0-0.5) 07/30/21 12:48 Baso # (Auto) 0.01 K/uL (0-0.2) 07/30/21 12:48 Immature Gran # (Auto) 0.02 K/uL (0.00-0.02) 07/30/21 12:48 Rouleaux 1+ 07/30/21 12:48 ESR 77 mm/hr (0-30) H 07/30/21 12:48 Sodium 135 mmol/L (136-145) L 07/30/21 12:48 Potassium 3.1 mmol/L (3.5-5.1) L 07/30/21 14:28 Chloride 98 mmol/L (98-107) 07/30/21 12:48 Carbon Dioxide 28 mmol/L (21-32) 07/30/21 12:48 Anion Gap 9 (3-11) 07/30/21 12:48 BUN 33 mg/dl (6-23) H 07/30/21 12:48 Creatinine 3.37 mg/dl (0.6-1.2) H 07/30/21 12:48 Est Cr Clr Drug Dosing Not Reportable 07/30/21 12:48 Est GFR ( Amer) 17.0 ml/min 07/30/21 12:48 Est GFR (Non-Af Amer) 14.7 ml/min 07/30/21 12:48 BUN/Creatinine Ratio 9.8 (10-20) L 07/30/21 12:48 Glucose 128 mg/dl (70-99(Fasting)) H 07/30/21 12:48 Calcium 9.0 mg/dl (8.5-10.1) 07/30/21 12:48 Total Bilirubin 0.6 mg/dl (0.2-1.0) 07/30/21 12:48 AST 64 U/L (13-39) H 07/30/21 14:28 ALT 44 U/L (7-52) 07/30/21 12:48 Alkaline Phosphatase 53 U/L (34-104) 07/30/21 12:48 Troponin I 0.03 ng/ml (0-0.04) 07/30/21 12:48 C-Reactive Protein 26.37 mg/dl (0-0.5) H 07/30/21 12:48 Total Protein 7.5 gm/dl (6.0-8.3) 07/30/21 12:48 Albumin 2.8 gm/dl (3.4-5.0) L 07/30/21 12:48 Globulin 4.7 gm/dl (2.5-4.0) H 07/30/21 12:48 Albumin/Globulin Ratio 0.6 (0.9-2) L 07/30/21 12:48 Procalcitonin 6.79 ng/ml (0-0.5) H 07/30/21 12:48 SARS-CoV-2, RNA, NAAT NEGATIVE (NEGATIVE) 07/30/21 13:37 Blood Type O Positive 07/30/21 13:05 Antibody Screen NEGATIVE 07/30/21 13:05 Impressions Foot X-Ray 07/30/21 12:41 XR foot LT min 3V routine HISTORY: 55 years-old Female L foot wound patient presents with chronic left foot: COMPARISON: CT left foot 04/25/2021 TECHNIQUE: 3 views of the left foot FINDINGS: Moderate diffuse soft tissue swelling. Moderate multifocal osteoarthritis. Soft tissue gas is noted within the forefoot, midfoot and hindfoot. Large soft tissue wound of the lateral midfoot forefoot junction measures up to approximately 7 cm. Cortical erosions are noted involving the plantar lateral base of the fifth metatarsal and cuboid. Sclerosis with cortical thickening involves the bases of the fourth metatarsal base. Marginal spurring of the calcaneus. IMPRESSION: 1. Large soft tissue wound of the lateral and plantar forefoot and midfoot junction redemonstrated with soft tissue swelling and soft tissue gas. The gas may be secondary to direct extension from the wound versus gas forming organism/fasciitis. 2. Osteomyelitis involves the base of the fifth metatarsal and the cuboid. Mild additional cortical thickening is noted within the fourth metatarsal base, also possibly credit and collections representative of osteomyelitis. ACT 112: Negative or not required by law. The above report was generated using voice recognition software. It may contain grammatical, syntax or spelling errors. Electronically signed by: Rajeev Roblero M.D. 07/30/2021 2:06 PM
[2021-07-30] MEDS ORDERED: POTASSIUM CHLORIDE CRTAB 20 MEQ TABCR PO STA (15:56)
[2021-07-30] MEDS ORDERED: VANCOMYCIN HCL 1,750 MG in SODIUM CHLORIDE 0.9% 500 ML IV ONE (16:15)
--- NOTE | 2021-07-30 17:42 | Electrocardiogram Report ---
Test Reason : Blood Pressure : / mmHG Vent. Rate : 095 BPM Atrial Rate : 095 BPM P-R Int : 128 ms QRS Dur : 092 ms QT Int : 364 ms P-R-T Axes : 072 -11 087 degrees QTc Int : 457 ms Poor data quality, interpretation may be adversely affected Normal sinus rhythm Voltage criteria for left ventricular hypertrophy Nonspecific ST and T wave abnormality Abnormal ECG When compared with ECG of 25-APR-2021 14:27, No significant change was found Confirmed by Gomez Landaverde ([id number]) on 07/30/2021 5:41:55 PM Referred By: Rob Dodge Confirmed By:Rayray Landaverde
[2021-07-30] MEDS ORDERED: GLUCAGON FOR INJ 1 MG VIAL SQ PRN (18:41)
[2021-07-30] MEDS ORDERED: PHARMACY GLYCEMIC MGMT CONSULT PRN (18:41)
[2021-07-30] MEDS ORDERED: CARBOHYDRATES FOR HYPOGLYCEMIA PO PRN (18:41)
[2021-07-30] MEDS ORDERED: GLUCOSE 10 TABS/TUBE PO PRN (18:41)
[2021-07-30] MEDS ORDERED: POLYETHYLENE (MIRALAX) 17 GM PACK PO PRN (18:41)
[2021-07-30] MEDS ORDERED: ONDANSETRON INJ 2 MG/ML 2 ML VIAL IV PRN (18:41)
[2021-07-30] MEDS ORDERED: GLUCOSE 40% GEL 15 GM TUBE PO PRN (18:41)
[2021-07-30] MEDS ORDERED: DEXTROSE 50% 50 ML SYRINGE IV PRN (18:41)
[2021-07-30] MEDS ORDERED: CONSULT PHARMACY STA (18:41)
[2021-07-30] MEDS: INSULIN ASPART PER UNIT SC SCH ×2 (20:03→20:21)
[2021-07-30] MEDS: DOCUSATE SODIUM 100 MG CAP PO SCH (20:09)
[2021-07-30] MEDS: GABAPENTIN 100 MG CAP PO SCH (20:09)
[2021-07-30] MEDS: SEVELAMER HCL 800 MG TABLET PO SCH (20:10)
[2021-07-30] MEDS: INSULIN HUMAN NPH SC SCH (20:12)
[2021-07-30] MEDS: METHADONE HCL 5 MG TAB PO SCH (20:17)
[2021-07-30] MEDS: HEPARIN SOD 5,000 UNIT/0.5 ML VIAL SQ SCH (21:11)
[2021-07-31] MEDS: HEPARIN SOD 5,000 UNIT/0.5 ML VIAL SQ SCH ×3 (06:15→21:26)
[2021-07-31] MEDS: LEVOTHYROXINE SODIUM 125 MCG TABLET PO SCH (06:16)
[2021-07-31 07:38] LABS: Hemoglobin 6.7 g/dL (12.0-16.0); Mean Corpuscular Hemoglobin 29.6 pg (25-34); Mean Corpuscular Hgb Conc 30.5 g/dL (32-36); Mean Corpuscular Volume 97.3 fL (80-100); Mean Platelet Volume 9.6 fL (7.4-10.4); Platelet Count 222 K/uL (130-400); RDW Coefficient of Variation 17.1 % (11.5-14.5); RDW Standard Deviation 60.9 fL (36.4-46.3); Red Blood Count 2.26 M/uL (4.2-5.4)
[2021-07-31 07:52] LABS: Albumin Globulin Ratio 0.5 (0.9-2); Albumin Level 2.3 gm/dl (3.4-5.0); BUN Creatinine Ratio 10.4 (10-20); Bilirubin,Total 0.5 mg/dl (0.2-1.0); Creatinine Clr Calc Pharmacy 19.2 ml/min; Est GFR (African American) 14.5 ml/min; Est GFR (Non-African American) 12.5 ml/min; Globulin 4.2 gm/dl (2.5-4.0); Magnesium 2.2 mg/dl (1.7-2.4); Potassium 3.5 mmol/L (3.5-5.1); Total Protein 6.5 gm/dl (6.0-8.3)
[2021-07-31 07:53] LABS: Estimated Average Glucose 100 mg/dl; Hemoglobin A1C 5.1 % (4.5-5.6)
[2021-07-31 08:02] LABS: Eosinophils # (auto) 0.06 K/uL (0-0.5); Immature Granulocytes # (auto) 0.02 K/uL (0.00-0.02); Immature Granulocytes % (auto) 0.3 %; Lymphocytes # (auto) 0.65 K/uL (1.2-3.4); Lymphocytes % (auto) 10.5 %; Monocytes # (auto) 0.38 K/uL (0.11-0.59); Monocytes % (auto) 6.1 %; Neutrophils # (auto) 5.09 K/uL (1.4-6.5); Neutrophils % (auto) 82.1 %; RBC Morphology Unremarkable
[2021-07-31] MEDS: GABAPENTIN 100 MG CAP PO SCH ×3 (08:26→21:25)
[2021-07-31] MEDS: SEVELAMER HCL 800 MG TABLET PO SCH ×3 (08:26→19:34)
[2021-07-31] MEDS: CHOLECALCIFEROL 5,000 UNITS 125 MCG TAB PO SCH (08:27)
[2021-07-31] MEDS: DOCUSATE SODIUM 100 MG CAP PO SCH ×2 (08:27→21:25)
[2021-07-31] MEDS: INSULIN ASPART PER UNIT SC SCH ×4 (08:32→21:35)
[2021-07-31] MEDS: INSULIN HUMAN NPH SC SCH ×2 (08:32→19:34)
[2021-07-31] MEDS: METHADONE HCL 5 MG TAB PO SCH ×3 (08:33→21:30)
--- NOTE | 2021-07-31 08:45 | Magnetic Resonance Report ---
MR foot LT w/o con HISTORY: L foot osteomyelitis TECHNIQUE: Multiplanar multisequence MRI of the left foot was performed without contrast according to standard departmental protocol. COMPARISON STUDY: Left foot radiograph 07/30/2021. Left foot CT 04/25/2021. FINDINGS: There is abnormal marrow signal intensity with cortical destruction seen at the base of the fifth metatarsal and lateral cuboid bone likely representing osteomyelitis. There is also abnormal m arrow signal seen within the bases of the second, third, and fourth metatarsals as well as the interm ediate and lateral cuneiform bone. This is also concerning for an osteomyelitis. Scattered areas of s oft tissue gas within the midfoot are again noted. Large skin ulceration along the plantar lateral as pect of the midfoot which measures approximately 5 cm in length. There is soft tissue edema along the plantar lateral aspect of the midfoot. There is extensive subcutaneous and deep soft tissue edema se en throughout the foot. Small loculated fluid collections dorsal to the third and fourth tarsometatar yasir joint measuring up to 1 cm. Some of these contain soft tissue gas and therefore favor small absce sses. This could be due to direct extension from the wound or a gas-forming organism/fasciitis. IMPRESSION: 1. Redemonstration of the large skin wound/ulceration within the plantar lateral aspect of the midfoo t which measures approximately 5 cm in length. 2. Deep to the skin wound there is cortical destruction at the base of the fifth metatarsal and cuboi d bone consistent with an osteomyelitis. There are additional areas of abnormal marrow signal within the base of the second through fourth metatarsals as well as the middle and lateral cuneiform bones. This is also suspicious for osteomyelitis. 3. Scattered areas of soft tissue gas and small loculated fluid collections dorsal to the third and f ourth tarsometatarsal joints. These likely represent small abscesses. Associated gas-forming organism /fasciitis should also be considered in the differential diagnosis. ACT 112: Negative or not required by law. Electronically signed by: Robson Nj M.D. 07/31/2021 8:43 AM
--- NOTE | 2021-07-31 09:03 | Ultrasound Report ---
ULTRASOUND LEFT LOWER EXTREMITY ARTERIAL CLINICAL HISTORY: Left lower extremity wound. COMPARISON STUDY: No priors. TECHNIQUE: Real-time grayscale and color Doppler sonography of the arteries of the left lower extremi ty is performed from the inguinal crease to the foot. Ankle-brachial indices were not assessed on thi s portable examination. FINDINGS: There is atherosclerotic plaque and irregularity seen throughout the arteries of the left l ower extremity. There are triphasic waveforms in the common femoral artery with velocities measuring up to 127 cm/s. The profunda femoris artery is patent with velocities measured up to 103 cm/s. There are triphasic waveforms throughout the superficial femoral and popliteal arteries. Velocities in the superficial femoral artery measure up to 154 cm/s. There are mildly elevated velocities in the poplit eal artery which measure up to 196 cm/s. There is slightly blunted arterial upstroke in the distal po pliteal artery. There is three-vessel runoff to the foot. There is slightly blunted arterial upstroke in the calf vessels. Velocities within the calf arteries measure up to 127 cm/s. The dorsalis pedis artery is patent with velocities measuring up to 174 cm/s. IMPRESSION: 1. Atherosclerotic plaque with evidence of peripheral vascular disease as above. 2. Mildly elevated velocities in the popliteal artery suggests at least mild stenosis. 3. No focal vessel occlusion is seen in the arteries of the left lower extremity. Dictated: 07/31/2021 8:05 AM Transcribed: 07/31/2021 8:49 AM Margarita [id number] [email or web address] Electronically signed by: Russell Fernandez M.D. 07/31/2021 9:02 AM
--- NOTE | 2021-07-31 09:21 | Pharmacy Report ---
Pharmacy Glycemic Short Note 2 - Date of Service July 31, 2021 - Glycemic Short BSG Results (Last 24 hours): 07/30/21 07/30/21 07/30/21 12:48 18:39 20:20 Glucose 128 H POC Glucose 133 H 130 H 07/31/21 07/31/21 06:39 07:17 Glucose 117 H POC Glucose 126 H OUTPATIENT ANTIDIABETIC REGIMEN: * NPH 30 units BID * Novolog SSI ASSESSMENT: * 55 yo female, PMH T2DM, ESRD HD TThSa, diabetic neuropathy, HTN, HL, hyperparathyroidism, anemia, hx of MRSA bacteremia, metastatic neuroendocrine carcinoma, chronic left foot wound, now with osteo, on IV antibx, ortho consult. * Started on NPH on scale, to continue w/ home basal insulin, BSGs at goal, continue, pt is NPO. PLAN FOR INPATIENT GLYCEMIC CONTROL: * Basal insulin * NPH SQ BID: 0 units BSG < 120, 12 units BSG 120-180, 24 units BSG > 180mg/dl * Bolus insulin * NovoLog per scale ACHS or Q6hrs while NPO * Goal Range: Low 110 mg/dL - High 140 mg/dL * Correction Factor: 25 mg/dL/unit * Nutritional / Prandial insulin per carb ratio of 1 unit per 8 grams CHO consumed PLAN FOR DISCHARGE: * Patient's A1c = 5.1% today. * However, this result is likely somewhat unreliable in ESRD patients d/t interactions between the A1c analyzing technique and high levels of urea in ESRD, reduced RBC life span, iron deficiency anemia, and EPO administration. * need to discuss w/ pt if having hypoglycemia at home? and perhaps adjust insulin accordingly.
--- NOTE | 2021-07-31 09:41 | Pharmacy Report ---
Pharmacy Abx Dose Short Note - Date of Service July 31, 2021 - Assessment & Plan Assessment 55 year old F receiving IV Vancomycin + Cefepime for treatment of left foot osteomyelitis. Per ortho: Patient to have I&D and possible metatarsal amputation and possible curetted versus removal of the cuboid tomorrow, awaiting further imaging from the MRI. BC pending Left foot culture growing GNB WBC wnl, afebrile Day # 1 of antimicrobial therapy. Plan Vancomycin * Random level of 20 mcg/mL is therapeutic * No UO yesterday, HD usually TuThSa * Will give another dose of Vancomycin post HD, whenever that is scheduled again, no HD scheduled at this time Cefepime 1g IV Q24H, post HD on HD Days, for HD dosing Pharmacy will continue to follow and will adjust dose/frequency as necessary. Thank you.
[2021-07-31] MEDS ORDERED: SODIUM CHLORIDE 0.9% 1000ML 1,000 ML IV PRN (10:40)
[2021-07-31] MEDS ORDERED: SODIUM CHLORIDE 0.9% 250 ML IV PRN (10:47)
--- NOTE | 2021-07-31 10:58 | Orthopedic Progress Note ---
Date of Service July 31, 2021 Assessment & Plan (1) Osteomyelitis of left foot: Plan: MRI / Duplex results as noted below. Plan for NPO after midnight tonight. Discussed with patient, plans for OR tomorrow for I/D Continue IV antibx / elevation left foot. Admission and Anticipated Discharge Date Admission Date: July 30, 2021 Subjective HD 1 Pt sitting up in chair at bedside. No complaints this AM. Comfortable. Physical Exam Physical Exam: Dressing maintained on the left foot. Swelling noted. No overt changes or increase in drainage. Results & Data ([facility]) Vital Signs (Past 12 Hours) Vital Signs Temp Pulse Pulse Resp BP Pulse Ox 07/31/21 07:48 88 07/31/21 07:25 36.8 C 77 18 119/66 96 07/31/21 03:04 37.0 C 91 H 20 146/73 H 98 07/31/21 01:46 79 07/30/21 23:15 37.0 C 87 20 118/67 93 Diagnostic Findings Patient:TANIA YOUSIF Admit Date:07/30/21 MR#:[id number] Address1:[address] [place] [address] Acct ID:[id number] Address2: Date:1965 [facility] Zip:[place] [address] Age:55 Location: Sex:F Room/Bed:[address] Phy:Gulshan Mak M.D. Diagnosis:L FOOT OSTEOMYELITIS Ana Laura Phy:Edy Eddy MD Service Date:07/30/21 [facility] Phy: Interpreting Phy:Robson Nj MDAdmit Phy:Hugo Parmar MD Ordering Phy:Ximena Waite PA-C cc: ~ MR foot LT w/o con HISTORY: L foot osteomyelitis TECHNIQUE: Multiplanar multisequence MRI of the left foot was performed without contrast according to standard departmental protocol. COMPARISON STUDY: Left foot radiograph 07/30/2021. Left foot CT 04/25/2021. FINDINGS: There is abnormal marrow signal intensity with cortical destruction seen at the base of the fifth metatarsal and lateral cuboid bone likely representing osteomyelitis. There is also abnormal marrow signal seen within the bases of the second, third, and fourth metatarsals as well as the intermediate and lateral cuneiform bone. This is also concerning for an osteomyelitis. Scattered areas of soft tissue gas within the midfoot are again noted. Large skin ulceration along the plantar lateral aspect of the midfoot which measures approximately 5 cm in length. There is soft tissue edema along the plantar lateral aspect of the midfoot. There is extensive subcutaneous and deep soft tissue edema seen throughout the foot. Small loculated fluid collections dorsal to the third and fourth tarsometatarsal joint measuring up to 1 cm. Some of these contain soft tissue gas and therefore favor small abscesses. This could be due to direct extension from the wound or a gas-forming organism/fasciitis. IMPRESSION: 1. Redemonstration of the large skin wound/ulceration within the plantar lateral aspect of the midfoot which measures approximately 5 cm in length. 2. Deep to the skin wound there is cortical destruction at the base of the fifth metatarsal and cuboid bone consistent with an osteomyelitis. There are additional areas of abnormal marrow signal within the base of the second through fourth metatarsals as well as the middle and lateral cuneiform bones. This is also suspicious for osteomyelitis. 3. Scattered areas of soft tissue gas and small loculated fluid collections dorsal to the third and fourth tarsometatarsal joints. These likely represent small abscesses. Associated gas-forming organism/fasciitis should also be considered in the differential diagnosis. ULTRASOUND LEFT LOWER EXTREMITY ARTERIAL CLINICAL HISTORY: Left lower extremity wound. COMPARISON STUDY: No priors. TECHNIQUE: Real-time grayscale and color Doppler sonography of the arteries of the left lower extremity is performed from the inguinal crease to the foot. Ankle-brachial indices were not assessed on this portable examination. FINDINGS: There is atherosclerotic plaque and irregularity seen throughout the arteries of the left lower extremity. There are triphasic waveforms in the common femoral artery with velocities measuring up to 127 cm/s. The profunda femoris artery is patent with velocities measured up to 103 cm/s. There are triphasic waveforms throughout the superficial femoral and popliteal arteries. Velocities in the superficial femoral artery measure up to 154 cm/s. There are mildly elevated velocities in the popliteal artery which measure up to 196 cm/s. There is slightly blunted arterial upstroke in the distal popliteal artery. There is three-vessel runoff to the foot. There is slightly blunted arterial upstroke in the calf vessels. Velocities within the calf arteries measure up to 127 cm/s. The dorsalis pedis artery is patent with velocities measuring up to 174 cm/s. IMPRESSION: 1. Atherosclerotic plaque with evidence of peripheral vascular disease as above. 2. Mildly elevated velocities in the popliteal artery suggests at least mild stenosis. 3. No focal vessel occlusion is seen in the arteries of the left lower extremity.
[2021-07-31] MEDS ORDERED: EPOETIN ALFA 20,000 UNITS/ML VIAL IV SCH (11:00)
[2021-07-31] MEDS ORDERED: CEFEPIME 2,000 MG in SYRINGE 0 ML IV SCH (14:00)
[2021-07-31] MEDS ORDERED: ACETAMINOPHEN 325 MG TAB PO ONE (14:48)
--- NOTE | 2021-07-31 15:00 | Consultation Report ---
NEPHROLOGY CONSULTATION NOTE DATE OF SERVICE: 07/31/2021. REASON FOR CONSULTATION: Dialysis, patient admitted with osteomyelitis. HISTORY OF PRESENT ILLNESS: The patient is a 55-year-old female with longstanding history of insulin-dependent diabetes mellitus with end-stage renal disease, on chronic hemodialysis Wednesday, , Wednesday as well as multiple other medical problems, who was admitted last night for osteomyelitis and severe anemia. She has had ongoing issues with wound infection/osteomyelitis. She follows with [facility]. The patient was sent over to the hospital by wound care physician for admission, IV antibiotics and surgical debridement. She did have an outpatient MRI done on 07/25/2021 showing findings of osteomyelitis in her foot. She is scheduled to have surgical debridement for tomorrow. Her hemoglobin was quite low at 6 and then repeat one was 6.7 and is scheduled to have blood transfusion later with dialysis. She gets dialysis through a dialysis catheter and she also has a maturing AV fistula. Her last dialysis was on Wednesday without any problems. ALLERGIES: IODINATED CONTRAST MEDIA, AND OMEPRAZOLE. HOME MEDICATIONS: List was reviewed in detail and is as per the reconciliation list. PAST MEDICAL AND SURGICAL HISTORY: Includes longstanding type 2 diabetes mellitus on insulin, end-stage renal disease on hemodialysis Wednesday, , Wednesday, diabetic neuropathy, hypertension, hyperlipidemia, anemia of renal disease, history of MRSA bacteremia, metastatic neuroendocrine carcinoma, chronic left wound followed by wound clinic, history of vocal cord paralysis on the right side, hypertension, history of sepsis, endovascular AV fistula created in 09/2020, thyroidectomy, cholecystectomy. FAMILY HISTORY: Positive for end-stage renal disease in her sister on dialysis. SOCIAL HISTORY: Never smoked. No alcohol. She is and lives with her spouse. She is currently disabled. REVIEW OF SYSTEMS: Detailed and as per the HPI. Other than issues with her wound infection, she denies having any other acute complaints. PHYSICAL EXAMINATION: GENERAL: A middle-aged white female, who appears to be chronically ill. She is awake, alert, oriented x3, was able to give me a detailed account of her medical problems. VITAL SIGNS: Blood pressure 122/72, pulse rate 104, temperature 36.7, respiratory rate 18, 99% on room air. HEENT: Mucous membrane is moist. NECK: Supple. No jugular venous distention. CHEST: Bilaterally clear to auscultation. CARDIOVASCULAR: S1 and S2, regular. ABDOMEN: Soft, nontender. EXTREMITIES: Show 1+ edema on the left lower extremity with some redness. Right lower extremity has trace edema. LABORATORY TEST: Blood work from this morning shows hemoglobin of 6.7, WBC count 6.20, platelet count 222. Sodium 136, potassium 3.5, BUN 40, creatinine 3.86. Wound culture is showing gram-negative bacilli. Blood culture is so far negative. ASSESSMENT AND PLAN: A 55-year-old female with longstanding diabetes and associated end-stage renal disease on chronic hemodialysis, Wednesday, , Wednesday schedule now admitted with osteomyelitis and her chronic diabetic wound in her left lower extremity. I have been consulted for dialysis management. 1. End-stage renal disease: She will get dialysis later today for 3 hours on a 3K bath. Her hemoglobin is very low, which is likely related with ESRD, but significantly worsened by ongoing infection and wound issues. She is scheduled to have blood transfusion during dialysis, which is reasonable. We will not give heparin given her possible surgery tomorrow and low hemoglobin. She still has significant amount of residual renal function and still makes good bit of urine, so we do not need to take much fluid off, 1 kilo of fluid will be removed. 2. Osteomyelitis. This has been an ongoing issue with failed outpatient management. She is scheduled to have surgery tomorrow. As for the antibiotic, she is currently getting vancomycin. Drug levels will be checked by Pharmacy. 3. Anemia, does not appear she is bleeding anywhere. Most likely this is anemia of ESRD significantly worsened by current infection. We will give her 20,000 units of EPO today with dialysis. Job ID: [id number] [facility]
[2021-07-31] MEDS ORDERED: VANCOMYCIN HCL 500 MG in DEXTROSE 5% 100 ML IV SCH (16:00)
[2021-07-31] MEDS: CEFEPIME 1,000 MG in SYRINGE 0 ML IV SCH (19:32)
[2021-07-31] MEDS: ACETAMINOPHEN 325 MG TAB PO PRN (22:17)
--- NOTE | 2021-07-31 23:28 | Hospitalist Progress Note ---
Date of Service July 31, 2021 Assessment & Plan (1) Osteomyelitis of left foot: (2) Ulcer of left midfoot: (3) Insulin dependent diabetes mellitus: (4) ESRD (end stage renal disease): Plan: This is a 55-year-old female who has significant past medical history of insulin-dependent T2DM, end-stage renal disease on hemodialysis Wednesday, , Wednesday, diabetic neuropathy, HTN, HLD, hyperparathyroidism, anemia of renal disease, history of MRSA bacteremia, metastatic neuroendocrine carcinoma, chronic left foot wound who presents to ED due to worsening of wound for the past 2 weeks. Left foot osteomyelitis Ulcer of left midfoot Patient given ER for worsening left foot wound MRI of left foot showed large skin wound/ulceration within the plantar lateral aspect of the midfoot which measures approximately 5 cm in length. Deep to the skin wound there is cortical destruction at the base of the fifth metatarsal and cuboid bone consistent with an osteomyelitis. There are additional areas of abnormal marrow signal within the base of the second through fourth metatarsals as well as the middle and lateral cuneiform bones. This is also suspicious for osteomyelitis. Scattered areas of soft tissue gas and small loculated fluid collections dorsal to the third and fourth tarsometatarsal joints. These likely represent small abscesses. Arterial duplex: atherosclerotic plaque with evidence of peripheral vascular disease as above. Mildly elevated velocities in the popliteal artery suggests at least mild stenosis. Elevated Procalcitonin at 6.2 and CRP 26.3 Wound cx grew gram negative bacilli Ortho on board Continue nonweightbearing to left lower extremity Continue Empiric IV vancomycin and cefepime -recent wound cultures grew Pseudomonas and MRSA Plan to take to OR in am for I&D and possible toe amputation Will consult ID Will make NPO after midnight Insulin-dependent T2DM Most recent hemoglobin A1c 5.1 NPH, NovoLog per protocol Pharmacy on board for glycemic management Continue monitor blood sugar End-stage renal disease on hemodialysis Hemodialysis is Wednesday Nephrology on board Plan to hemodialyzed today Neuroendocrine carcinoma with metastatic disease Chronic pain secondary to cancer, follows palliative care for pain management On methadone and hydromorphone s/p XRT, follows Dr. Hannon Anemia of renal disease Hemoglobin 6.7 today We will transfuse 1 unit PRBC during dialysis Continue monitor hemoglobin after surgical procedure DVT ppx: on Heparin SQ, will hold heparin midnight FULL CODE Admission and Anticipated Discharge Date Admission Date: July 30, 2021 Subjective Patient was seen and examined for follow-up of L toe osteomyelitis Sitting in chair in no acute distress Patient said that she has been feeling tired and low energy Denies any chest pain, palpitation, dizziness, shortness of breath. Review of Systems Review of Systems: All systems reviewed & are unremarkable except as noted in Subjective Physical Exam Physical Exam: General- No acute distress Head- atraumatic Eyes- PERRL, EOMI, ENT- oropharynx clear Neck- supple, no JVD Lungs- clear to auscultation Heart- regular rhythm Abdomen- normal bowel sounds, soft, nontender Extremities- no calf tenderness, +Large open wound to the lateral aspect of L mid foot Neuro- alert, oriented x 3; PERRL, EOMI; no facial palsy; no dysarthria Skin- warm & dry Results & Data Results & Data ([facility]) Vital Signs (Past 12 Hours) Vital Signs Temp Pulse Pulse Resp BP BP Pulse Ox 07/31/21 22:26 37.9 C H 90 18 121/68 92 07/31/21 19:16 37.1 C 97 H 18 132/65 96 07/31/21 18:49 37.3 C 95 H 151/67 H 07/31/21 18:40 90 132/65 07/31/21 18:20 82 123/56 L 07/31/21 18:00 81 112/56 L 07/31/21 17:40 83 121/57 L 07/31/21 17:20 86 138/61 07/31/21 17:01 37.2 C 90 16 144/67 H 07/31/21 17:00 90 144/67 H 07/31/21 16:45 94 H 132/63 07/31/21 16:30 96 H 134/62 07/31/21 16:12 37.9 C H 97 H 20 143/68 H 07/31/21 16:00 97 H 143/68 H 07/31/21 15:44 98 H 152/85 H 07/31/21 15:34 37.9 C H 106 H 07/31/21 15:03 38.2 C H 110 H 18 147/70 H 97
[2021-08-01] MEDS: LEVOTHYROXINE SODIUM 125 MCG TABLET PO SCH (05:54)
[2021-08-01 06:30] LABS: Hematocrit (blood only) 26.9 % (37-47); Mean Corpuscular Hemoglobin 29.3 pg (25-34); Mean Corpuscular Hgb Conc 29.7 g/dL (32-36); Mean Corpuscular Volume 98.5 fL (80-100); Mean Platelet Volume 9.8 fL (7.4-10.4); Platelet Count 243 K/uL (130-400); RDW Coefficient of Variation 17.1 % (11.5-14.5); RDW Standard Deviation 61.1 fL (36.4-46.3); Red Blood Count 2.73 M/uL (4.2-5.4); White Blood Count 8.15 K/uL (4.8-10.8)
[2021-08-01 06:57] LABS: BUN Creatinine Ratio 8.3 (10-20); Calcium 8.9 mg/dl (8.5-10.1); Creatinine Clr Calc Pharmacy 23.6 ml/min; Est GFR (African American) 18.5 ml/min; Est GFR (Non-African American) 15.9 ml/min; Potassium 3.4 mmol/L (3.5-5.1)
[2021-08-01] MEDS: INSULIN ASPART PER UNIT SC SCH ×4 (07:07→22:42)
[2021-08-01] MEDS ORDERED: INSULIN HUMAN NPH SC ONE (08:00)
--- NOTE | 2021-08-01 08:38 | Anesthesiology Consultation ---
Date of Service August 01, 2021 Assessment & Plan (1) Encounter for pre-operative examination: Chart Review Chart Review: Acceptable Risk for Surgery and Patient NOT seen in Pre Admission Testing Covid 07/30/21 Patient transfused 1 unit pRBC 07/30/21. Nephrology note 07/31/21: ASSESSMENT AND PLAN: A 55-year-old female with longstanding diabetes and associated end-stage renal disease on chronic hemodialysis, Wednesday, , Wednesday schedule now admitted with osteomyelitis and her chronic diabetic wound in her left lower extremity. I have been consulted for dialysis management. 1. End-stage renal disease: She will get dialysis later today for 3 hours on a 3K bath. Her hemoglobin is very low, which is likely related with ESRD, but significantly worsened by ongoing infection and wound issues. She is scheduled to have blood transfusion during dialysis, which is reasonable. Consults Requested none History Surgery Operation Date: 08/01/21 09:10 Proposed Procedures p Left Diabetic Foot Ulcer Incision and Drainage Possible Amputation 5th Metatarsal and Cubid Bone - Ab Pat DO s Possible Amputation of 5th metatarsal and Cuboid bone - Ab Pat DO Height/Weight Height: 5 ft 7 in Weight: 90.5 kg Allergies Allergy/AdvReac Type Severity Reaction Status Date / Time Iodinated Contrast Media AdvReac Severe Patient Verified 07/30/21 15:21 has kidney failure omeprazole AdvReac Severe Increased Verified 07/30/21 15:21 her acid reflux Medications Home Medications Medication Instructions Recorded Confirmed Last Taken hydromorphone 4 mg tablet 8 mg PO Q3H PRN 03/15/21 07/30/21 Unknown insulin aspart U-100 100 unit/mL 1 sliding scale dose SUBCUT 03/15/21 07/30/21 07/29/21 subcutaneous solution (Novolog USEASDIRECTD U-100 Insulin aspart) levothyroxine 125 mcg tablet 125 mcg PO DAILYBB 03/15/21 07/30/21 07/29/21 methadone 5 mg tablet 10 mg PO TID 03/15/21 07/30/21 07/30/21 08:00 gabapentin 100 mg capsule 200 mg PO TID 04/07/21 07/30/21 07/29/21 docusate sodium 100 mg capsule 100 mg PO DAILY 06/11/21 07/30/21 07/29/21 (Colace) insulin NPH isoph U-100 human 100 30 unit SUBCUT BID ml 06/11/21 07/30/2107/09 08:00 unit/mL (3 mL) subcutaneous pen (Humulin N NPH U-100 Insulin KwikPen) sevelamer carbonate 800 mg tablet 1,600 mg PO TIDM 07/30/21 07/30/21 Unknown (Renvela) Active Medications Generic Name Dose Route Start Last Admin Trade Name Freq PRN Reason Stop Dose Admin Acetaminophen 650 mg 07/30/21 18:41 07/31/21 22:17 Acetaminophen 325 Mg Tab PO 08/29/21 18:40 650 mg Q4H PRN Administration Pain or Fever Docusate Sodium 100 mg 07/30/21 21:00 07/31/21 21:25 Docusate Sodium 100 Mg Cap PO 08/29/21 20:59 100 mg BID KIRT Administration Gabapentin 200 mg 07/30/21 21:00 07/31/21 21:25 Gabapentin 100 Mg Cap PO 08/29/21 20:59 200 mg TID KIRT Administration Heparin Sodium (Porcine) 5,000 units 07/30/21 22:00 07/31/21 21:26 Heparin Sod 5,000 Unit/0.5 Ml Vial SQ 08/29/21 21:59 5,000 units Q8 KIRT Administration Hydromorphone HCl 8 mg 07/30/21 18:58 07/31/21 11:45 Hydromorphone Hcl 8 Mg Tab PO 08/13/21 18:57 8 mg Q3H PRN Administration Pain Cefepime HCl 1,000 mg/ Syringe 11.3 mls @ 5.5 mls/min 07/31/21 16:00 07/31/21 19:32 IV 09/11/21 15:59 5.5 mls/min Q24H KIRT Administration Protocol Insulin Aspart 0 units 07/30/21 18:41 08/01/21 07:07 Insulin Aspart Per Unit SC 08/29/21 18:40 3 units ACHS KIRT Administration Levothyroxine Sodium 125 mcg 07/31/21 06:30 08/01/21 05:54 Levothyroxine Sodium 125 Mcg Tablet PO 08/30/21 06:29 125 mcg DAILYBB KIRT Administration Methadone HCl 5 mg 07/30/21 21:00 07/31/21 21:30 Methadone Hcl 5 Mg Tab PO 08/13/21 20:59 5 mg TID KIRT Administration Sevelamer HCl 1,600 mg 07/30/21 19:15 07/31/21 19:34 Sevelamer Hcl 800 Mg Tablet PO 08/29/21 19:14 1,600 mg TIDM KIRT Administration Vitamin D 5,000 units 07/31/21 09:00 07/31/21 08:27 Cholecalciferol 5,000 Units 125 Mcg Tab PO 08/30/21 08:59 5,000 units QAM KIRT Administration Past Medical History Medical History (Updated 08/01/21 @ 08:32 by Gonzalez Diaz MD) Acid reflux Amputation of right great toe Anemia Diabetes Diabetic retinopathy ESRD (end stage renal disease) On dialysis H/O vocal cord paralysis Right side Hypertension MRSA bacteremia 2017; unclear if vertebral or R diabetic foot wound source Neuroendocrine tumor (12/05/19) Pneumonia (10/05/13) Retinal hemorrhage, right eye Sepsis Shortness of breath (10/05/13) Thyroid cancer Thyroid nodule Neuroendocrine carcinoma with metastatic disease Chronic pain secondary to cancer, follows palliative care for pain management On methadone and hydromorphone s/p XRT, follows Dr. Hannon End-stage renal disease on hemodialysis Hemodialysis is Wednesday Past Family History Family History Mother , 70yo Valvular heart disease Diabetes Father , 74yo Pneumonia Diabetes Brother No problems noted. Brother No problems noted. Sister Dialysis patient Kidney disease Daughter No problems noted. Daughter Diabetes Past Surgical History Surgical History AVF (arteriovenous fistula) endovascular L; created 09/2020 H/O thyroidectomy Partial thyroidectomy History of cholecystectomy History of surgery Surgery to removed benign tumor from right vocal cord; Hx of cataract surgery Bilateral Hx of tonsillectomy Previous section March 2021: I and D gluteal abscess x2 at [facility]. Patient was septic and in ICU. Intubated with 7.5 ETT. Glidescope #4. IJ and arterial line placed. Maintained with vasopressors. Social History Smoking Status: Never smoker Do You Dip or Chew Tobacco: No Hx Alcohol Use: No Hx Substance Use: No Physical Exam Vital Signs Last Vital Signs Temp 37.1 C 08/01/21 07:22 Pulse 87 08/01/21 07:38 Resp 18 08/01/21 07:22 BP 127/68 08/01/21 07:22 Pulse Ox 94 08/01/21 07:22 Testing Laboratory Results 08/01/21 05:47 08/01/21 05:47 Hemoglobin A1c 5.1 % (4.5-5.6) 07/31/21 06:39 Blood Type O Positive 07/30/21 13:05 Antibody Screen NEGATIVE 07/30/21 13:05 07/30/21 14:10 Gram Stain - Final Foot,Left Wound Culture - Preliminary Klebsiella pneumoniae 07/30/21 12:48 Aerobic Blood Culture - Preliminary Blood No growth in Aerobic bottle after 24 hours. Anaerobic Blood Culture - Final 07/30/21 13:00 Aerobic Blood Culture - Preliminary Blood No growth in Aerobic bottle after 24 hours. Anaerobic Blood Culture - Final 08/01/21 08/01/21 07/31/21 07:35 06:47 21:14 POC Glucose 206 H 193 H 108 H Electrocardiogram Date: 07/30/21 DICTATED BY:Gomez Landaverde MD Test Reason : Blood Pressure : / mmHG Vent. Rate : 095 BPM Atrial Rate : 095 BPM P-R Int : 128 ms QRS Dur : 092 ms QT Int : 364 ms P-R-T Axes : 072 -11 087 degrees QTc Int : 457 ms Poor data quality, interpretation may be adversely affected Normal sinus rhythm Voltage criteria for left ventricular hypertrophy Nonspecific ST and T wave abnormality Abnormal ECG When compared with ECG of 25-APR-2021 14:27, No significant change was found Confirmed by Gomez Landaverde ([id number]) on 07/30/2021 5:41:55 PM Chest X-Ray Date: 04/25/21 XR chest 1V portable HISTORY: 55 years-old Female Sepsis acute sepsis COMPARISON: Chest radiograph 04/06/2021 TECHNIQUE: Portable AP view of the chest FINDINGS: Cardiac silhouette is enlarged. Interval removal of the endotracheal and enteric tubes and right IJ central venous catheter. Linear subsegmental level left lung base atelectasis/scarring. No pneumothorax, pleural effusion or overt pulmonary edema. Degenerative changes of the shoulders and spine. IMPRESSION: Cardiomegaly without acute process.
[2021-08-01] MEDS: CHOLECALCIFEROL 5,000 UNITS 125 MCG TAB PO SCH (08:39)
[2021-08-01] MEDS: DOCUSATE SODIUM 100 MG CAP PO SCH ×2 (08:39→22:56)
[2021-08-01] MEDS: GABAPENTIN 100 MG CAP PO SCH ×3 (08:39→22:56)
[2021-08-01] MEDS: SEVELAMER HCL 800 MG TABLET PO SCH ×3 (08:39→17:42)
--- NOTE | 2021-08-01 08:41 | Pharmacy Report ---
Pharmacy Abx Dose Short Note - Date of Service August 01, 2021 - Assessment & Plan Assessment 55 year old F receiving vancomycin/cefepime for treatment of L foot osteomyelitis Day # 3 of antimicrobial therapy. Plan Vancomycin * Random level of 16.5 mcg/mL is therapeutic. Per nephrology notes, patient does produce a significant amount of urine. Only received dialysis yesterday to remove 1 L of fluid * Give vancomycin 500 mg IV x 1 * Goal trough level for osteomyelitis : 15 to 20 mcg/mL * Random level ordered for: 08/01/21 Pharmacy will continue to follow and will adjust dose/frequency as necessary. Thank you.
[2021-08-01] MEDS: METHADONE HCL 5 MG TAB PO SCH ×3 (08:46→22:56)
[2021-08-01] MEDS ORDERED: VANCOMYCIN HCL 500 MG in DEXTROSE 5% 100 ML IV ONE (09:00)
[2021-08-01 10:58] LABS: Pregnancy Test, Serum Negative (Negative)
--- NOTE | 2021-08-01 12:30 | Nephrology Progress Note ---
Date of Service August 01, 2021 Assessment & Plan Admission and Anticipated Discharge Date Admission Date: July 30, 2021 Subjective S--Feels fine. NO new issues. had HD yesterday without problem. PHYSICAL EXAMINATION: GENERAL: A middle-aged white female, who appears to be chronically ill. She is awake, alert, oriented x3, was able to give me a detailed account of her medical problems. VITAL SIGNS: Blood pressure 122/72, pulse rate 104, temperature 36.7, respiratory rate 18, 99% on room air. HEENT: Mucous membrane is moist. NECK: Supple. No jugular venous distention. CHEST: Bilaterally clear to auscultation. CARDIOVASCULAR: S1 and S2, regular. ABDOMEN: Soft, nontender. EXTREMITIES: Show 1+ edema on the left lower extremity with some redness. Right lower extremity has trace edema. LABORATORY TEST: Blood work from this morning shows hemoglobin of 9 k 3.4 Wound culture is showing gram-negative bacilli. Blood culture is so far negative. ASSESSMENT AND PLAN: A 55-year-old female with longstanding diabetes and associated end-stage renal disease on chronic hemodialysis, Wednesday, , Wednesday schedule now admitted with osteomyelitis and her chronic diabetic wound in her left lower extremity. I have been consulted for dialysis management. 1. End-stage renal disease: She will get dialysis tomorrow for 3 hours on a 3K bath. Her hemoglobin is very low, which is likely related with ESRD, but significantly worsened by ongoing infection and wound issues. We will not give heparin, She still has significant amount of residual renal function and still makes good bit of urine, so we do not need to take much fluid off, 1 kilo of fluid will be removed. 2. Osteomyelitis. This has been an ongoing issue with failed outpatient management. She is scheduled to have surgery tomorrow. As for the antibiotic, she is currentlying vancomycin. Drug levels will be checked by Pharmacy. 3. Anemia, does not appear she is bleeding anywhere. Most likely this is anemia of ESRD significantly worsened by current infection. We will give her 20,000 units of EPO today with dialysis. Results & Data ([facility]) Vital Signs (Past 12 Hours) Vital Signs Temp Pulse Pulse Resp BP Pulse Ox 08/01/21 11:21 36.4 C L 83 16 112/68 95 08/01/21 07:38 87 08/01/21 07:22 37.1 C 92 H 18 127/68 94 08/01/21 03:29 37.4 C 93 H 16 124/65 91
--- NOTE | 2021-08-01 13:26 | Pharmacy Report ---
Pharmacy Glycemic Short Note 2 - Date of Service August 01, 2021 - Glycemic Short BSG Results (Last 24 hours): 07/31/21 07/31/21 08/01/21 19:15 21:14 05:47 Glucose 173 H POC Glucose 95 108 H 08/01/21 08/01/21 08/01/21 06:47 07:35 12:09 Glucose POC Glucose 193 H 206 H 206 H OUTPATIENT ANTIDIABETIC REGIMEN: * NPH 30 units BID * Novolog SSI ASSESSMENT: * Patient's BSGs yesterday were [id number] mg/dL. Patient received 22 units of insulin (12 units of basal and 10 units bolus). * Fasting today is 193 mg/dL. * Patient is NPO for I&D. * NPH 6 units for now due to NPO status. Scale ongoing for doses of 6 or 10 units as 12 units appears too aggressive. Background * 55 yo female, PMH T2DM, ESRD HD TThSa, diabetic neuropathy, HTN, HL, hyperparathyroidism, anemia, hx of MRSA bacteremia, metastatic neuroendocrine carcinoma, chronic left foot wound, now with osteo, on IV antibx, ortho consult. * Started on NPH on scale, to continue w/ home basal insulin, BSGs at goal, continue, pt is NPO. PLAN FOR INPATIENT GLYCEMIC CONTROL: * Basal insulin * NPH SQ BID: 6 units BSG <140 mg/dL, 10 units BSG > 140mg/dl * Bolus insulin * NovoLog per scale ACHS or Q6hrs while NPO * Goal Range: Low 110 mg/dL - High 140 mg/dL * Correction Factor: 25 mg/dL/unit * Nutritional / Prandial insulin per carb ratio of 1 unit per 8 grams CHO consumed PLAN FOR DISCHARGE: * Patient's A1c = 5.1% today. * However, this result is likely somewhat unreliable in ESRD patients d/t interactions between the A1c analyzing technique and high levels of urea in ESRD, reduced RBC life span, iron deficiency anemia, and EPO administration. * Safe to continue home regimen based upon assistant health educator's note. Continue to follow-up as an outpatient.
[2021-08-01] MEDS: CEFEPIME 1,000 MG in SYRINGE 0 ML IV SCH (15:31)
[2021-08-01] MEDS: INSULIN HUMAN NPH SC SCH (17:42)
--- NOTE | 2021-08-01 18:59 | History & Physical Bridge Note ---
Date of Service August 01, 2021 History & Physical Bridge Note I have examined the patient, reviewed the History & Physical and in the interval since the performance of the History & Physical I have noted the following changes of clinical significance: no changes noted
[2021-08-01] MEDS ORDERED: BUPIVACAINE 0.5 % 5 MG/1 ML MPF 30ML VIAL ONE (19:24)
[2021-08-01] MEDS ORDERED: ceFAZolin 330 MG/ML 1 GM VIAL ONE (19:24)
[2021-08-01] MEDS ORDERED: VANCOMYCIN HCL 1000MG/20ML VIAL ONE (19:27)
[2021-08-01] MEDS ORDERED: GENTAMICIN SULFATE 40 MG/ML 2 ML VIAL ONE (19:27)
[2021-08-01] MEDS ORDERED: ePHEDrine sulfate 50 MG/ML AMP IV PRN (20:24)
[2021-08-01] MEDS ORDERED: ATROPINE SULFATE 0.1 MG/ML 10ML SYR IV PRN (20:24)
[2021-08-01] MEDS ORDERED: ONDANSETRON INJ 2 MG/ML 2 ML VIAL IV PRN ×2 (20:24→21:54)
[2021-08-01] MEDS ORDERED: ONDANSETRON INJ 2 MG/ML 2 ML VIAL ONE (21:06)
[2021-08-01] MEDS ORDERED: PROPOFOL IV EMULSION 10 MG/ML 20 ML VIAL IV ONE (21:06)
[2021-08-01] MEDS ORDERED: LIDOCAINE 2% 2 ML VIAL/AMP(20MG/ML) INFIL ONE (21:06)
--- NOTE | 2021-08-01 21:52 | Post Operative Brief Note ---
Immediate Post Op Note v1 Date of Surgery August 01, 2021 Pre & Post Diagnosis Operation Date: 08/01/21 09:10 Pre-Op Diagnosis: Osteomyelitis of 4th and 5th metatarsals and cuboid bone left foot Septic tenosynovitis extensor digitorum and peroneus longus tendons Abscess lateral foot, abscess dorsal central foot, abscess dorsal medial foot Diabetic neuropathic ulcer Lateral Left Foot measuring [id number] Post-Op Diagnosis: Osteomyelitis of 4th and 5th metatarsals and cuboid bone left foot Septic tenosynovitis extensor digitorum and peroneus longus tendons Abscess lateral foot, abscess dorsal central foot, abscess dorsal medial foot Diabetic neuropathic ulcer Lateral Left Foot measuring [id number] I identified the patient and participated in the time-out.: Yes Procedure Operation Date: 08/01/21 09:10 Actual Procedures p 1. Left Diabetic neuropathic foot Ulcer irrigation debridement measuring 8 cm x 4 cm x 0.6 cm including skin, dermis, subcutaneous tissue, fascia. 2. Incision and Drainage abscess x2 dorsal foot 3. Incision and drainage abscess lateral foot 4. Tenosynovectomy of peroneus longus, tenosynovectomy of extensor digitorum tendons 5. Exostectomy 4th and 5th metatarsals, exostectomy cuboid bone (Left) - Ab Pat DO Surgeon Ab Pat DO Computer Hardware Designer Danielle Duarte PA-C Estimated Blood Loss 5 Findings Consistent with Post-Op Diagnosis Specimens Fourth metatarsal, fifth metatarsal, cuboid for pathological specimen Abscess lateral foot Abscess dorsal foot Drains Other (1/2 inch iodoform gauze drains x4) Complications none Disposition Accompanied Patient To Recovery: Yes
[2021-08-01] MEDS ORDERED: bisacodyL 10 MG SUPP PR PRN (21:54)
[2021-08-01] MEDS ORDERED: MAGNESIUM HYDROXIDE SUSP 30 ML UDC PO PRN (21:54)
[2021-08-01] MEDS: fentaNYL citrate 100 MCG/2 ML VIAL IV PRN ×2 (21:54→22:00)
[2021-08-01] MEDS ORDERED: NALOXONE HCL 0.4 MG/1 ML VIAL/CARP IV PRN (21:54)
[2021-08-01] MEDS ORDERED: METOCLOPRAMIDE HCL INJ 5 MG/ML 2 ML VIAL IV PRN (21:54)
[2021-08-01] MEDS ORDERED: SODIUM CHLORIDE 0.9% 1000ML 1,000 ML IV SCH (22:00)
--- NOTE | 2021-08-01 22:01 | Anesthesiology Progress Note ---
Date of Service August 01, 2021 Anesthesia Post Procedure Vital Signs Vital Signs: Temp Pulse Pulse Pulse Resp BP Pulse Ox 08/01/21 21:47 36 C L 100 H 20 142/62 H 97 08/01/21 19:37 38.5 C H 97 H 18 151/69 H 95 08/01/21 16:00 94 H 08/01/21 11:21 36.4 C L 83 16 112/68 95 08/01/21 07:38 87 08/01/21 07:22 37.1 C 92 H 18 127/68 94 08/01/21 03:29 37.4 C 93 H 16 124/65 91 08/01/21 00:00 89 07/31/21 22:26 37.9 C H 90 18 121/68 92 Pain Intensity Generalized: Pain Intensity: 5 Transfer of Care Handoff Completed per policy Notes Mental Status: alert / awake / arousable Patient Amnestic to Procedure: Yes Nausea / Vomiting: adequately controlled Pain: adequately controlled Airway Patency, RR, SpO2: stable & adequate BP & HR: stable & adequate Hydration State: stable & adequate Anesthetic Complications: no major complications apparent
--- NOTE | 2021-08-01 23:29 | Operative Report (OR) ---
DATE OF PROCEDURE: 08/01/2021. PREOPERATIVE DIAGNOSES: Left foot osteomyelitis of the fourth and fifth metatarsals; osteomyelitis o f the cuboid bone; septic tenosynovitis of the extensor digitorum tendons; septic tenosynovitis of th e peroneus longus tendons; abscess, lateral forefoot; abscess, the dorsal central foot; abscess, the dorsal medial foot; diabetic neuropathic ulcer, lateral foot left measuring 8 x 4 x 0.6 cm. POSTOPERATIVE DIAGNOSES: Left foot osteomyelitis of the fourth and fifth metatarsals; osteomyelitis of the cuboid bone; septic tenosynovitis of the extensor digitorum tendons; septic tenosynovitis of t he peroneus longus tendons; abscess, lateral forefoot; abscess, the dorsal central foot; abscess, the dorsal medial foot; diabetic neuropathic ulcer, lateral foot left measuring 8 x 4 x 0.6 cm. PROCEDURES: 1. Left foot diabetic neuropathic ulcer irrigation and debridement measuring 8 x 4 x 0.6 cm includin g skin, dermis, subcutaneous tissue, and fascia. 2. Incision and drainage of abscess, lateral foot. 3. Incision and drainage of abscess, dorsal central foot. 4. Incision and drainage of abscess, dorsal medial foot. 5. Tenosynovectomy of the peroneus longus tendon. 6. Tenosynovectomy of the extensor digitorum longus tendons, dorsal foot. 7. Exostectomy of the fourth metatarsal. 8. Exostectomy of the fifth metatarsal. 9. Exostectomy of the cuboid bone. SURGEON: Ab Pat DO MANAGER CLINICAL PHARMACY: Danielle Duarte PA-C, who was present for patient positioning, sterile prep and drape, management of retractors and instruments. He was present through the critical portions of the case i ncluding wound closure, application of sterile dressing and transport of the patient to recovery. ANESTHESIA: General, regional. SPECIMENS: 1. Fourth metatarsal, fifth metatarsal and cuboid for pathological specimen. 2. Abscess collection, lateral foot. 3. Abscess collection, dorsal foot. DRAINS: A 1/2-inch iodoform gauze drains x4 separate sites. COMPLICATIONS: None. BLOOD LOSS: 5 mL. PERTINENT HISTORY: This is a 55-year-old woman who has a significant medical history of insulin-depe ndent type 2 diabetes mellitus, end-stage renal disease, on hemodialysis, diabetic neuropathy, hypert ension, hyperlipidemia, hyperparathyroidism, history of MRSA bacteremia, metastatic neuroendocrine ca rcinoma with chronic left foot wound, who presented to the Emergency Department with worsening of her foot wound over the prior 2 weeks. The patient was recently seen at [facility], had an outpatie nt MRI. Recent wound cultures grew out pseudomonas and MRSA. She had a CRP of 26.37. She had been seen by wound care. She presented to the Emergency Department. She was admitted to the hospitalist service, stabilized, placed on IV antibiotics and after MRI was completed, orthopedics was consulted. The patient had an MRI, which had findings consistent with osteomyelitis of the base of the fifth m etatarsal and cuboid and the proximal aspect of the fourth metatarsals. Also noted to have areas of fluid collection in the dorsal foot concerning for abscess. The patient was then scheduled for surge ry as indicated. All potential risks, benefits, complications, alternatives, rehab potential for incomplete relief of symptoms, need for further surgery, DVT, PE, , persistent pain, swelling, scarring, weakness, ne urovascular injury, wound complications, need for further amputation, debridement, or possible was discussed with the patient and the patient decided to proceed with procedure as indicated. DESCRIPTION OF PROCEDURE: The patient was taken to the operative suite and placed supine on the oper ating room table. After review of the consent and identification of proper site, the patient was ane sthetized, LMA was placed. Left lower extremity was then sterilely prepped and draped in the usual f ashion, elevated and an Esmarch bandage was applied over a sterile surgical towel at the level of the ankle. There was no exsanguination performed due to the nature of the infection. Next, after surgical timeout was performed, the left foot 8 x 4 x 0.6 cm full thickness ulceration wa s sharply debrided with a 15-blade scalpel. Slough and necrotic tissue was excised including skin, d ermis, subcutaneous tissue, and fascia. After grossly necrotic tissue was excised, a separate incisi on was made along the lateral aspect of the fifth metatarsal bridging across into the cuboid. This w as in an effort to protect and preserve as much tissue as possible on the plantar aspect of the foot and allow it to heal if possible. Next, the incision was deepened to the base of the fifth metatarsa l. Of note, the blade of the 15-blade scalpel passed easily into the base of the fifth metatarsal in dicating chronic osteomyelitis for an extended period of time. A 15-blade test was also performed of the cuboid. The blade passed easily into the cuboid plantar hemisphere and the cuboid bone extruded purulent material. Abscess collection was also noted dorsal to the cuboid in the lateral aspect of the foot. This abscess fluid collection was then sampled and sent for specimen. Next, the base of the fourth metatarsal was also tested and noted to be softened. Therefore, sagittal saw was used to resect approximately one-half of the fifth metatarsal and the base of the fourth met atarsal. The samples of bone were passed off as specimen for pathology as well as a hemisection of t he cuboid, which was resected using osteotome and mallet. The residual bone appeared to be firm enou gh to have the possibility of survival of the fourth metatarsal, fifth metatarsal, and cuboid. The p eroneus longus tendon running plantar to the cuboid was noted to have gross infection of the tenosyno vium. Therefore, a tenosynovectomy of the septic tenosynovium was then removed with a rongeur. Next, after the grossly infected tissue was then excised, attention was then directed toward the dors um of the foot, the areas were concerning for abscess on MRI. We then incised the one on the dorsal c entral aspect of the foot, roughly at the level of the tarsometatarsal joints followed by a secondary incision in the dorsal medial foot, primarily overlying the base of the first tarsometatarsal joint. Careful dissection was performed with tenotomy scissors into the abscess fluid pockets as mentioned above and these abscess fluid pockets were evacuated; however, the dorsal central site was then cult ured and sent for specimen. Next, the rongeur was then used to perform a tenosynovectomy of the septic extensor digitorum communi s tendons at both the dorsal central and dorsal medial foot. Next, pulsatile lavage was then used to lavage all incisions including the diabetic ulcer until clear with 3 liters of solution with 1 gram of Ancef additive. Once this was completed, top gloves and top sheet were changed and then 1/2 inch iodoform gauze packing was placed in four separate incision sites to allow for wick draining. A part ial ankle block was then performed with 30 mL of 0.5% Marcaine plain and then a sterile compressive d ressing was applied consisting of Xeroform gauze, sterile 4 x 4s, ABD pads, cast padding, and Sameer wra ps x2. The tourniquet was released. The patient was awakened and taken to recovery in stable condit ion. Job ID: [id number]
--- NOTE | 2021-08-02 00:59 | Hospitalist Progress Note ---
Date of Service August 01, 2021 Assessment & Plan (1) Osteomyelitis of left foot: (2) Ulcer of left midfoot: (3) Insulin dependent diabetes mellitus: (4) ESRD (end stage renal disease): Plan: This is a 55-year-old female who has significant past medical history of insulin-dependent T2DM, end-stage renal disease on hemodialysis Wednesday, , Wednesday, diabetic neuropathy, HTN, HLD, hyperparathyroidism, anemia of renal disease, history of MRSA bacteremia, metastatic neuroendocrine carcinoma, chronic left foot wound who presents to ED due to worsening of wound for the past 2 weeks. Left foot osteomyelitis Ulcer of left midfoot Patient given ER for worsening left foot wound MRI of left foot showed large skin wound/ulceration within the plantar lateral aspect of the midfoot which measures approximately 5 cm in length. Deep to the skin wound there is cortical destruction at the base of the fifth metatarsal and cuboid bone consistent with an osteomyelitis. There are additional areas of abnormal marrow signal within the base of the second through fourth metatarsals as well as the middle and lateral cuneiform bones. This is also suspicious for osteomyelitis. Scattered areas of soft tissue gas and small loculated fluid collections dorsal to the third and fourth tarsometatarsal joints. These likely represent small abscesses. Arterial duplex: atherosclerotic plaque with evidence of peripheral vascular disease as above. Mildly elevated velocities in the popliteal artery suggests at least mild stenosis. Elevated Procalcitonin at 6.2 and CRP 26.3 Wound cx grew gram negative bacilli Ortho on board Continue nonweightbearing to left lower extremity Continue Empiric IV vancomycin and cefepime -recent wound cultures grew Pseudomonas and MRSA Plan to take to OR for I&D and possible toe amputation ID on board and recommended IV Vanco + Cefepime + PO Metronidazole Keep NPO for now Insulin-dependent T2DM Most recent hemoglobin A1c 5.1 NPH, NovoLog per protocol Pharmacy on board for glycemic management Continue monitor blood sugar End-stage renal disease on hemodialysis Hemodialysis is Wednesday Nephrology on board Plan to hemodialyzed today Neuroendocrine carcinoma with metastatic disease Chronic pain secondary to cancer, follows palliative care for pain management On methadone and hydromorphone s/p XRT, follows Dr. Hannon Anemia of renal disease Hemoglobin 8today S/P 1 unit PRBC given yesterday during dialysis Continue monitor hemoglobin after surgical procedure DVT ppx: Heparin SQ on hold FULL CODE Admission and Anticipated Discharge Date Admission Date: July 30, 2021 Subjective Patient was seen and examined for follow-up of L toe osteomyelitis Sitting in chair in no acute distress Pt said that she feels much better after received the blood transfusion She said that she is hungry and NPO for the surgery Denies any chest pain, palpitation, dizziness, shortness of breath. Review of Systems Review of Systems: All systems reviewed & are unremarkable except as noted in Subjective Physical Exam Physical Exam: General- No acute distress Head- atraumatic Eyes- PERRL, EOMI, ENT- oropharynx clear Neck- supple, no JVD Lungs- clear to auscultation Heart- regular rhythm Abdomen- normal bowel sounds, soft, nontender Extremities- no calf tenderness, +Large open wound to the lateral aspect of L mid foot Neuro- alert, oriented x 3; PERRL, EOMI; no facial palsy; no dysarthria Skin- warm & dry Results & Data Results & Data ([facility]) Vital Signs (Past 12 Hours) Vital Signs Temp Pulse Pulse Resp BP Pulse Ox Pulse Ox 08/02/21 00:25 37.3 C 87 16 112/66 92 08/01/21 22:58 37.3 C 104 H 18 127/59 L 91 08/01/21 22:20 37.3 C 85 17 116/53 L 94 08/01/21 22:10 87 20 125/53 L 93 08/01/21 22:00 93 H 19 136/79 100 08/01/21 21:50 96 H 18 141/59 H 99 08/01/21 21:47 36 C L 100 H 20 142/62 H 97 08/01/21 21:00 92 08/01/21 19:37 38.5 C H 97 H 18 151/69 H 95 08/01/21 16:00 94 H
[2021-08-02] MEDS: LEVOTHYROXINE SODIUM 125 MCG TABLET PO SCH (05:30)
[2021-08-02] MEDS ORDERED: EPOETIN ALFA 20,000 UNITS/ML VIAL IV ONE (07:00)
[2021-08-02] MEDS ORDERED: SODIUM CHLORIDE 0.9% 1000ML 1,000 ML IV PRN (07:00)
[2021-08-02 08:07] LABS: Hematocrit (blood only) 26.2 % (37-47); Hemoglobin 7.6 g/dL (12.0-16.0); Mean Platelet Volume 9.4 fL (7.4-10.4); Platelet Count 245 K/uL (130-400); RDW Coefficient of Variation 17.2 % (11.5-14.5); RDW Standard Deviation 62.8 fL (36.4-46.3); Red Blood Count 2.62 M/uL (4.2-5.4); White Blood Count 9.27 K/uL (4.8-10.8)
[2021-08-02 08:31] LABS: BUN Creatinine Ratio 9.2 (10-20); Calcium 8.5 mg/dl (8.5-10.1); Creatinine Clr Calc Pharmacy 20.1 ml/min; Est GFR (African American) 15.2 ml/min; Est GFR (Non-African American) 13.1 ml/min; Potassium 3.6 mmol/L (3.5-5.1)
[2021-08-02] MEDS: INSULIN HUMAN NPH SC SCH ×2 (08:49→18:34)
[2021-08-02] MEDS: INSULIN ASPART PER UNIT SC SCH ×4 (08:50→20:15)
[2021-08-02] MEDS ORDERED: DOCUSATE SODIUM 100 MG CAP PO SCH (09:00)
--- NOTE | 2021-08-02 10:07 | Orthopedic Progress Note ---
Date of Service August 02, 2021 Assessment & Plan (1) Ulcer of left midfoot: Plan: S/p Left Diabetic Foot Ulcer Incision and Drainage x2 dorsal foot, 1x lateral foot, tenosynovectomy of peroneus longus, tenosynovectomy of extensor digitorum, exostectomy 4th, 5th and cuboid bone currently on cefipime packing pulled today. continue to pull packing daily. monitor intra-op cultures. Admission and Anticipated Discharge Date Admission Date: July 30, 2021 Subjective POD #1 patient laying in bed. States pain is better overall. Physical Exam Physical Exam: draining serous fluid, packing in place. erythema improving. NVI Results & Data ([facility]) Vital Signs (Past 12 Hours) Vital Signs Temp Pulse Resp BP Pulse Ox 08/02/21 07:15 36.8 C 80 19 114/60 94 08/02/21 03:45 37 C 87 18 130/77 93 08/02/21 00:25 37.3 C 87 16 112/66 92 08/01/21 22:58 37.3 C 104 H 18 127/59 L 91 08/01/21 22:20 37.3 C 85 17 116/53 L 94 08/01/21 22:10 87 20 125/53 L 93
[2021-08-02] MEDS: ACETAMINOPHEN 325 MG TAB PO PRN ×3 (10:08→23:07)
--- NOTE | 2021-08-02 11:21 | Nephrology Progress Note ---
Date of Service August 02, 2021 Assessment & Plan (1) ESRD (end stage renal disease): Plan: Patient with ESRD on dialysis Wednesday. Last dialysis was on which was uneventful. Renally dose antibiotics for GFR less than 25 mL/min while on dialysis. Admission and Anticipated Discharge Date Admission Date: July 30, 2021 Subjective Seen in follow-up for ESRD. She feels well denies any shortness of breath. Le ft leg is still swollen. Last dialysis was on . Review of Systems Review of Systems: All other systems were reviewed and negative except as noted in HPI Physical Exam Physical Exam: General exam: Appears comfortable, no acute distress HEENT: Pupils are equal and reactive to light Neck: No JVD, neck is supple trachea is midline Respiratory system: Clear breath sounds bilaterally. Gastrointestinal: Abdomen is soft, non distended, non tender, bowel sounds are present CVS: Regular rate and rhythm. No murmurs, rubs or gallops Musculoskeletal: No joint or muscle tenderness Extremities: Non tender, no edema, peripheral pulses are present Neuro: Oriented, no tremors, no focal neurological deficits Skin: No rashes Results & Data ([facility]) Vital Signs (Past 12 Hours) Vital Signs Temp Pulse Resp BP Pulse Ox 08/02/21 10:57 36.8 C 86 20 103/63 97 08/02/21 07:15 36.8 C 80 19 114/60 94 08/02/21 03:45 37 C 87 18 130/77 93 08/02/21 00:25 37.3 C 87 16 112/66 92 Laboratory Results 08/02/21 07:38 08/02/21 07:38 WBC 9.27 RBC 2.62 L MCV 100.0 MCH 29.0 MCHC 29.0 L RDW Std Deviation 62.8 H RDW Coeff of Padmini 17.2 H Plt Count 245 MPV 9.4
[2021-08-02] MEDS: METHADONE HCL 5 MG TAB PO SCH ×3 (12:25→20:12)
[2021-08-02] MEDS: GABAPENTIN 100 MG CAP PO SCH ×3 (15:02→20:12)
[2021-08-02] MEDS: SEVELAMER HCL 800 MG TABLET PO SCH ×3 (15:02→18:26)
[2021-08-02] MEDS: DOCUSATE SODIUM 100 MG CAP PO SCH ×2 (15:03→20:13)
[2021-08-02 15:19] LABS: Appearance Urine Turbid (Clear); Bilirubin Urine Negative (Negative); Blood Urine 2+ (Negative); Color Urine Dark Yellow; Epithelial Cell Urine Auto >30 /lpf (0-5); Glucose Urine UA Negative (Negative); Ketones Urine Trace (Negative); Leukocyte Esterase Urine 1+ (Negative); Nitrite Urine Negative (Negative); Protein Urine 2+ (Negative); Specific Gravity Urine 1.018 (1.000-1.030); Urobilinogen Urine Negative (Negative); WBC Urine Automated >30 /hpf (0-5)
[2021-08-02 15:40] LABS: Cast Urine Automated >30 /lpf (0-5); Granular Casts Urine >30 /lpf (0)
[2021-08-02 15:41] LABS: Bacteria Urine Automated 1+ (Negative)
[2021-08-02] MEDS: CHOLECALCIFEROL 5,000 UNITS 125 MCG TAB PO SCH (18:25)
[2021-08-02] MEDS: MULTIVITAMIN TAB PO SCH (18:26)
[2021-08-02] MEDS: CEFEPIME 1,000 MG in SYRINGE 0 ML IV SCH (18:33)
[2021-08-02] MEDS ORDERED: VANCOMYCIN HCL 750 MG in SODIUM CHLORIDE 0.9% 250 ML IV SCH (20:00)
--- NOTE | 2021-08-02 20:10 | Hospitalist Progress Note ---
Date of Service August 02, 2021 Assessment & Plan (1) Osteomyelitis of left foot: (2) Ulcer of left midfoot: (3) Insulin dependent diabetes mellitus: (4) ESRD (end stage renal disease): Plan: This is a 55-year-old female who has significant past medical history of insulin-dependent T2DM, end-stage renal disease on hemodialysis Wednesday, , Wednesday, diabetic neuropathy, HTN, HLD, hyperparathyroidism, anemia of renal disease, history of MRSA bacteremia, metastatic neuroendocrine carcinoma, chronic left foot wound who presents to ED due to worsening of wound for the past 2 weeks. Left foot osteomyelitis Ulcer of left midfoot Patient given ER for worsening left foot wound MRI of left foot showed large skin wound/ulceration within the plantar lateral aspect of the midfoot which measures approximately 5 cm in length. Deep to the skin wound there is cortical destruction at the base of the fifth metatarsal and cuboid bone consistent with an osteomyelitis. There are additional areas of abnormal marrow signal within the base of the second through fourth metatarsals as well as the middle and lateral cuneiform bones. This is also suspicious for osteomyelitis. Scattered areas of soft tissue gas and small loculated fluid collections dorsal to the third and fourth tarsometatarsal joints. These likely represent small abscesses. Arterial duplex: atherosclerotic plaque with evidence of peripheral vascular disease as above. Mildly elevated velocities in the popliteal artery suggests at least mild stenosis. Elevated Procalcitonin at 6.2 and CRP 26.3 Wound cx grew gram negative bacilli Ortho on board S/p day #1 Left Diabetic Foot Ulcer Incision and Drainage x2 dorsal foot, 1x lateral foot, tenosynovectomy of peroneus longus, tenosynovectomy of extensor digitorum, exostectomy 4th, 5th and cuboid bone by ortho Continue nonweightbearing to left lower extremity Continue Empiric IV vancomycin and cefepime -recent wound cultures grew Pseudomonas and MRSA Wound cx from the I&D on 08/01 grew gram negative bacilli ID on board and recommended IV Vanco + Cefepime + PO Metronidazole Continue wound care PT/OT eval Insulin-dependent T2DM Most recent hemoglobin A1c 5.1 NPH, NovoLog per protocol Pharmacy on board for glycemic management Continue monitor blood sugar End-stage renal disease on hemodialysis Hemodialysis is Wednesday Nephrology on board Plan to hemodialyzed today Neuroendocrine carcinoma with metastatic disease Chronic pain secondary to cancer, follows palliative care for pain management On methadone and hydromorphone s/p XRT, follows Dr. Hannon Anemia of renal disease Hemoglobin 8today S/P 1 unit PRBC during the hospital course Continue monitor hemoglobin after surgical procedure DVT ppx: Heparin SQ on hold FULL CODE Admission and Anticipated Discharge Date Admission Date: July 30, 2021 Subjective Patient was seen and examined for postop follow-up of L foot osteomyelitis Sitting in chair in no acute distress She said pain improves Denies any chest pain, palpitation, dizziness, shortness of breath. Review of Systems Review of Systems: All systems reviewed & are unremarkable except as noted in Subjective Physical Exam Physical Exam: General- No acute distress Head- atraumatic Eyes- PERRL, EOMI, ENT- oropharynx clear Neck- supple, no JVD Lungs- clear to auscultation Heart- regular rhythm Abdomen- normal bowel sounds, soft, nontender Extremities- no calf tenderness, + wound to the lateral aspect of L mid foot wrapped with dressing Neuro- alert, oriented x 3; PERRL, EOMI; no facial palsy; no dysarthria Skin- warm & dry Results & Data Results & Data ([facility]) Vital Signs (Past 12 Hours) Vital Signs Temp Pulse Pulse Pulse Resp BP BP 08/02/21 19:36 37.4 C 97 H 18 131/66 08/02/21 18:15 36.5 C 80 149/55 H 08/02/21 18:00 89 139/65 08/02/21 17:40 85 142/59 H 08/02/21 17:20 83 133/57 L 08/02/21 17:00 82 127/59 L 08/02/21 16:40 80 127/59 L 08/02/21 16:20 80 124/52 L 08/02/21 16:00 77 120/57 L 08/02/21 15:40 76 124/69 08/02/21 15:20 74 119/93 08/02/21 15:10 36.5 C 08/02/21 10:57 36.8 C 86 20 103/63 Pulse Ox 08/02/21 19:36 96 08/02/21 18:15 08/02/21 18:00 08/02/21 17:40 08/02/21 17:20 08/02/21 17:00 08/02/21 16:40 08/02/21 16:20 08/02/21 16:00 08/02/21 15:40 08/02/21 15:20 08/02/21 15:10 08/02/21 10:57 97
[2021-08-02] MEDS: SENNA 8.6 MG TAB PO SCH (20:12)
[2021-08-03] MEDS: LEVOTHYROXINE SODIUM 125 MCG TABLET PO SCH (05:52)
[2021-08-03 06:34] LABS: Hematocrit (blood only) 26.1 % (37-47); Hemoglobin 7.7 g/dL (12.0-16.0); Mean Corpuscular Hemoglobin 29.5 pg (25-34); Mean Corpuscular Hgb Conc 29.5 g/dL (32-36); Mean Platelet Volume 9.4 fL (7.4-10.4); Platelet Count 259 K/uL (130-400); RDW Coefficient of Variation 16.9 % (11.5-14.5); RDW Standard Deviation 61.8 fL (36.4-46.3); Red Blood Count 2.61 M/uL (4.2-5.4); White Blood Count 8.02 K/uL (4.8-10.8)
[2021-08-03 06:49] LABS: BUN Creatinine Ratio 9.7 (10-20); Calcium 8.5 mg/dl (8.5-10.1); Creatinine Clr Calc Pharmacy 24.6 ml/min; Est GFR (African American) 19.6 ml/min; Est GFR (Non-African American) 16.9 ml/min; Potassium 3.4 mmol/L (3.5-5.1)
[2021-08-03] MEDS: SEVELAMER HCL 800 MG TABLET PO SCH ×3 (07:58→16:27)
[2021-08-03] MEDS: DOCUSATE SODIUM 100 MG CAP PO SCH ×2 (07:59→20:14)
[2021-08-03] MEDS: MULTIVITAMIN TAB PO SCH (07:59)
[2021-08-03] MEDS: GABAPENTIN 100 MG CAP PO SCH ×3 (07:59→20:14)
[2021-08-03] MEDS: INSULIN HUMAN NPH SC SCH ×2 (08:01→17:13)
[2021-08-03] MEDS: INSULIN ASPART PER UNIT SC SCH ×4 (08:02→20:29)
--- NOTE | 2021-08-03 08:02 | Pharmacy Report ---
Pharmacy Abx Dose Short Note - Date of Service August 03, 2021 - Assessment & Plan Assessment 55 year old F receiving vancomycin + cefepime for treatment of L foot osteomyelitis L foot growing klebsiella pneumoniae, pseudomonas and enterobacter. Patient also has hx of MRSA. Blood cultures no growth to date. Urine cultures pending. Day #4 of antimicrobial therapy. Plan Vancomycin * Patient receives hemodialysis [facility]. Last HD session was Wednesday, 08/02. * Pharmacy has been dosing vancomycin based on daily random levels. * Received 750mg x1 yesterday post HD. Random level this morning of 17.8 mcg/mL is therapeutic. * Per nephrology notes, patient makes decent amount of urine on her own and has been requiring supplemental vancomycin on non HD days. * Will give vancomycin 500mg x1 today and obtain a random level with AM labs tomorrow, 08/04. * Goal trough level for osteo: 15-20 mcg/mL (close to 20 mcg/mL for bone and joint infection) Cefepime * Pharmacy not consulted however, cefepime 1g IV q24h (given post HD on dialysis days) is appropriate for indication Pharmacy will continue to follow and will adjust dose/frequency as necessary. Thank you.
[2021-08-03] MEDS: METHADONE HCL 5 MG TAB PO SCH ×3 (08:12→20:13)
[2021-08-03] MEDS: CHOLECALCIFEROL 5,000 UNITS 125 MCG TAB PO SCH (08:13)
[2021-08-03] MEDS ORDERED: VANCOMYCIN HCL 500 MG in DEXTROSE 5% 100 ML IV ONE (09:00)
--- NOTE | 2021-08-03 09:18 | Nephrology Progress Note ---
Date of Service August 03, 2021 Assessment & Plan (1) ESRD (end stage renal disease): Plan: Patient with ESRD on dialysis Wednesday. Patient tolerated dialysis well yesterday with net UF of 1 L. Electrolytes are stable no signs of volume overload. No indication for dialysis today. Next dialysis will be on Wednesday. Renally dose antibiotics for GFR less than 25 mL/min while on dialysis. Admission and Anticipated Discharge Date Admission Date: July 30, 2021 Subjective Seen in follow-up for ESRD. She had dialysis yesterday with net UF of 1 L. No shortness of breath. Review of Systems Review of Systems: All other systems were reviewed and negative except as noted in HPI Physical Exam Physical Exam: General exam: Appears comfortable, no acute distress HEENT: Pupils are equal and reactive to light Neck: No JVD, neck is supple trachea is midline Respiratory system: Clear breath sounds bilaterally. Gastrointestinal: Abdomen is soft, non distended, non tender, bowel sounds are present CVS: Regular rate and rhythm. No murmurs, rubs or gallops Musculoskeletal: No joint or muscle tenderness Extremities: Non tender, no edema, peripheral pulses are present Neuro: Oriented, no tremors, no focal neurological deficits Skin: No rashes Results & Data ([facility]) Vital Signs (Past 12 Hours) Vital Signs Temp Pulse Pulse Resp BP Pulse Ox 08/03/21 07:40 36.8 C 86 18 137/71 95 08/03/21 03:12 37.1 C 89 18 127/70 93 08/03/21 01:50 87 08/02/21 23:40 36.6 C 90 18 122/70 98 Laboratory Results 08/03/21 05:58 08/03/21 05:58 WBC 8.02 RBC 2.61 L MCV 100.0 MCH 29.5 MCHC 29.5 L RDW Std Deviation 61.8 H RDW Coeff of Padmini 16.9 H Plt Count 259 MPV 9.4
--- NOTE | 2021-08-03 10:38 | Orthopedic Progress Note ---
Date of Service August 03, 2021 Assessment & Plan (1) Ulcer of left midfoot: Plan: S/p Left Diabetic Foot Ulcer Incision and Drainage x2 dorsal foot, 1x lateral foot, tenosynovectomy of peroneus longus, tenosynovectomy of extensor digitorum, exostectomy 4th, 5th and cuboid bone currently on cefipime packing pulled today from dorsal foot. continue to pull packing daily. monitor intra-op cultures. Admission and Anticipated Discharge Date Admission Date: July 30, 2021 Subjective Patient resting comfortably today. Denies any pain. Physical Exam Physical Exam: draining serous fluid, packing in place. erythema improving. NVI Results & Data ([facility]) Vital Signs (Past 12 Hours) Vital Signs Temp Pulse Pulse Resp BP Pulse Ox 08/03/21 07:40 36.8 C 86 18 137/71 95 08/03/21 03:12 37.1 C 89 18 127/70 93 08/03/21 01:50 87 08/02/21 23:40 36.6 C 90 18 122/70 98
[2021-08-03] MEDS: ACETAMINOPHEN 325 MG TAB PO PRN (12:02)
--- NOTE | 2021-08-03 14:26 | Pharmacy Report ---
Pharmacy Glycemic Short Note 2 - Date of Service August 03, 2021 - Glycemic Short BSG Results (Last 24 hours): 08/02/21 08/02/21 08/03/21 18:26 20:05 05:58 Glucose 231 H POC Glucose 137 H 183 H 08/03/21 08/03/21 07:28 11:29 Glucose POC Glucose 268 H 269 H OUTPATIENT ANTIDIABETIC REGIMEN: * NPH 30 units BID * Novolog SSI ASSESSMENT: 08/03: * Patient received total 28 units of insulin yesterday; 16 units basal + 12 units bolus. * BSGs yesterday were [phone] mg/dl. * Fasting BSG today was elevated at 268 mg/dl. NPH dose with dinner today increased to 10 units. * Novolog CF and CR tightened with breakfast today. 08/01/21: * Patient's BSGs yesterday were 084-163-61-108 mg/dL. Patient received 22 units of insulin (12 units of basal and 10 units bolus). * Fasting today is 193 mg/dL. * Patient is NPO for I&D. * NPH 6 units for now due to NPO status. Scale ongoing for doses of 6 or 10 units as 12 units appears too aggressive. Background * 55 yo female, PMH T2DM, ESRD HD TThSa, diabetic neuropathy, HTN, HL, hyperparathyroidism, anemia, hx of MRSA bacteremia, metastatic neuroendocrine carcinoma, chronic left foot wound, now with osteo, on IV antibx, ortho consult. * Started on NPH on scale, to continue w/ home basal insulin, BSGs at goal, continue, pt is NPO. PLAN FOR INPATIENT GLYCEMIC CONTROL: * Basal insulin: increased PM dose * NPH 10 units SQ BIDM * Bolus insulin: tightened CF/CR * NovoLog per scale ACHS or Q6hrs while NPO * Goal Range: Low 110 mg/dL - High 140 mg/dL * Correction Factor: 20 mg/dL/unit * Nutritional / Prandial insulin per carb ratio of 1 unit per 7 grams CHO consumed PLAN FOR DISCHARGE: * Patient's A1c = 5.1% today. * However, this result is likely somewhat unreliable in ESRD patients d/t interactions between the A1c analyzing technique and high levels of urea in ESRD, reduced RBC life span, iron deficiency anemia, and EPO administration. * Safe to continue home regimen based upon development educator's note. Continue to follow-up as an outpatient.
[2021-08-03] MEDS: CEFEPIME 1,000 MG in SYRINGE 0 ML IV SCH (16:27)
--- NOTE | 2021-08-03 19:50 | Hospitalist Progress Note ---
Date of Service August 03, 2021 Assessment & Plan (1) Osteomyelitis of left foot: (2) Ulcer of left midfoot: (3) Insulin dependent diabetes mellitus: (4) ESRD (end stage renal disease): Plan: This is a 55-year-old female who has significant past medical history of insulin-dependent T2DM, end-stage renal disease on hemodialysis Wednesday, , Wednesday, diabetic neuropathy, HTN, HLD, hyperparathyroidism, anemia of renal disease, history of MRSA bacteremia, metastatic neuroendocrine carcinoma, chronic left foot wound who presents to ED due to worsening of wound for the past 2 weeks. Left foot osteomyelitis Ulcer of left midfoot Patient given ER for worsening left foot wound MRI of left foot showed large skin wound/ulceration within the plantar lateral aspect of the midfoot which measures approximately 5 cm in length. Deep to the skin wound there is cortical destruction at the base of the fifth metatarsal and cuboid bone consistent with an osteomyelitis. There are additional areas of abnormal marrow signal within the base of the second through fourth metatarsals as well as the middle and lateral cuneiform bones. This is also suspicious for osteomyelitis. Scattered areas of soft tissue gas and small loculated fluid collections dorsal to the third and fourth tarsometatarsal joints. These likely represent small abscesses. Arterial duplex: atherosclerotic plaque with evidence of peripheral vascular disease as above. Mildly elevated velocities in the popliteal artery suggests at least mild stenosis. Elevated Procalcitonin at 6.2 and CRP 26.3 Wound cx grew gram negative bacilli Ortho on board S/p day #1 Left Diabetic Foot Ulcer Incision and Drainage x2 dorsal foot, 1x lateral foot, tenosynovectomy of peroneus longus, tenosynovectomy of extensor digitorum, exostectomy 4th, 5th and cuboid bone by ortho Continue nonweightbearing to left lower extremity Continue Empiric IV vancomycin and cefepime -recent wound cultures grew Pseudomonas and MRSA Wound cx from the I&D on 08/01 grew gram negative bacilli ID on board and recommended IV Vanco + Cefepime + PO Metronidazole Will discussed with ID about final abx regimen and duration tomorrow Continue daily wound care PT/OT eval Insulin-dependent T2DM Most recent hemoglobin A1c 5.1 NPH, NovoLog per protocol Pharmacy on board for glycemic management Continue monitor blood sugar End-stage renal disease on hemodialysis Hemodialysis is Wednesday Nephrology on board Next HD is scheduled for Wednesday Neuroendocrine carcinoma with metastatic disease Chronic pain secondary to cancer, follows palliative care for pain management On methadone and hydromorphone s/p XRT, follows Dr. Hannon Anemia of renal disease Hemoglobin 7.7 today S/P 1 unit PRBC during the hospital course Continue monitor hemoglobin after surgical procedure DVT ppx: Heparin SQ on hold due to recent surgery Will add SCD FULL CODE Admission and Anticipated Discharge Date Admission Date: July 30, 2021 Subjective Patient was seen and examined for postop follow-up of L foot osteomyelitis Lying in bed with no acute distress Denies any chest pain, palpitation, dizziness, shortness of breath. Review of Systems Review of Systems: All systems reviewed & are unremarkable except as noted in Subjective Physical Exam Physical Exam: General- No acute distress Head- atraumatic Eyes- PERRL, EOMI, ENT- oropharynx clear Neck- supple, no JVD Lungs- clear to auscultation Heart- regular rhythm Abdomen- normal bowel sounds, soft, nontender Extremities- no calf tenderness, + wound to the lateral aspect of L mid foot wrapped with dressing Neuro- alert, oriented x 3; PERRL, EOMI; no facial palsy; no dysarthria Skin- warm & dry Results & Data Results & Data ([facility]) Vital Signs (Past 12 Hours) Vital Signs Temp Pulse Pulse Resp BP Pulse Ox 08/03/21 19:00 37.1 C 91 H 20 123/66 94 08/03/21 11:41 37.2 C 89 18 147/77 H 96
[2021-08-03] MEDS: SENNA 8.6 MG TAB PO SCH (20:14)
[2021-08-04] MEDS: ACETAMINOPHEN 325 MG TAB PO PRN (01:12)
[2021-08-04] MEDS: LEVOTHYROXINE SODIUM 125 MCG TABLET PO SCH (05:45)
[2021-08-04] MEDS ORDERED: INSULIN HUMAN NPH SC SCH (08:00)
--- NOTE | 2021-08-04 08:22 | Nephrology Progress Note ---
Date of Service August 04, 2021 Assessment & Plan (1) ESRD (end stage renal disease): Plan: Patient with ESRD on dialysis Wednesday. HD 08/02 with net UF of 1 L. Electrolytes are acceptable as of 08/03 no signs of volume overload. No indication for dialysis today. Next dialysis will be on Wednesday. Renally dose antibiotics for GFR less than 25 mL/min while on dialysis. -no labs today so far; note pt on regular diet and K yesterday 3.4 so reg diet appropriate > check BMP no later than tomorrow -next maintenance HD tomorrow as IP or OP -anemia will be addressed w/ intensified AMEENA, after d/w oncology given her NET Admission and Anticipated Discharge Date Admission Date: July 30, 2021 Subjective seen on rounds at 1005 approx. up in chair; has packign left in foot and hoping team can remove today; no sob; pain controlled; no known bleeding Review of Systems 2 Review of Systems: All systems reviewed & are unremarkable except as noted in Subjective Physical Exam Constitutional: well developed and well nourished; no acute distress Eyes: EOM intact bilaterally ENMT: Ears: no external ear abnormality Nose: no external nose abnormality Mouth: + dry oral mucous membranes Neck: no nuchal rigidity Respiratory: normal respiratory effort Auscultation: + diminished lung sounds Cardiovascular: Rate/Rhythm: regular rate and regular rhythm Heart Sounds: + murmur Extremities: + edema (trace) Gastrointestinal (Abdomen): Inspection/Auscultation: normal bowel sounds Percussion/Palpation: abdomen soft; abdomen nontender Musculoskeletal: Extremities: strength 5/5 throughout Skin: no rashes, warm and dry L foot wrapped Neurologic: rodriguez, fluent speech, no tremor Psychiatric: Orientation: oriented x 3 Insight: good insight Judgement: good judgement Results & Data ([facility]) Vital Signs (Past 12 Hours) Vital Signs Temp Pulse Pulse Resp BP Pulse Ox Pulse Ox 08/04/21 07:30 36.8 C 85 18 139/74 94 08/03/21 22:00 37.0 C 97 H 18 149/69 H 92 08/03/21 21:00 94 Laboratory Results no labs 08/0408/03/21 05:58 08/03/21 05:58
[2021-08-04] MEDS: METHADONE HCL 5 MG TAB PO SCH ×3 (08:29→21:07)
[2021-08-04] MEDS: GABAPENTIN 100 MG CAP PO SCH ×3 (08:30→21:05)
[2021-08-04] MEDS: DOCUSATE SODIUM 100 MG CAP PO SCH ×2 (08:30→21:05)
[2021-08-04] MEDS: SEVELAMER HCL 800 MG TABLET PO SCH ×3 (08:30→16:48)
[2021-08-04] MEDS: MULTIVITAMIN TAB PO SCH (08:30)
[2021-08-04] MEDS: INSULIN ASPART PER UNIT SC SCH ×4 (08:36→21:08)
--- NOTE | 2021-08-04 14:11 | Pharmacy Report ---
Pharmacy Glycemic Sign Off Nt - Date of Service August 04, 2021 - Assessment & Plan ASSESSMENT: * Pharmacy was consulted by Ximena Waite on 07/30/21 for glycemic control and to write orders per [facility] inpatient glycemic control protocol. * Major changes made by pharmacy to antidiabetic regimen include: * Initiation of NPH regimen. * Initiation of Novolog scale * Patient has been receiving/requiring ~50 units of insulin per day for adequate glycemic control * BSGs ranging 189- 268 mg/dl * Patient is requesting her home regimen to help with hyperglycemia. * Please see recommendations for outpatient antidiabetic regimen below. PLAN FOR INPATIENT GLYCEMIC CONTROL: No changes needed to current regimen. * Restart NPH 30 units BIDM * Continue NovoLog per scale ACHS/Q6hrs while NPO (Physician to check [facility] portal to determine home regimen) * Goal range = 110- 140 mg/dl * CF = 15 mg/dl/unit * CR = 1 unit for ever 5 g CHO consumed * Pharmacy is signing off of glycemic consult and will no longer be making adjustments to inpatient regimen. Please feel free to re-consult if needed. Thank you. DISCHARGE RECOMMENDATIONS: * A1c 5.1 % on 07/31/21 * Patient to continue to follow-up with [facility] endocrinology
--- NOTE | 2021-08-04 14:24 | Pharmacy Report ---
Pharmacy Abx Dose Short Note - Date of Service August 04, 2021 - Assessment & Plan Assessment 55 year old F receiving vancomycin for treatment of L foot osteomyelitis Day # 6 of antimicrobial therapy. Plan Vancomycin * Random level of 19.8 mcg/mL is therapeutic * Will hold today's dose * Goal trough level for osteomyelitis : 15 to 20 mcg/mL * Random level ordered for: 08/05/21 Pharmacy will continue to follow and will adjust dose/frequency as necessary. Thank you.
--- NOTE | 2021-08-04 16:14 | Orthopedic Progress Note ---
Date of Service August 04, 2021 Assessment & Plan (1) Ulcer of left midfoot: Plan: POD #3 s/p 1. Left foot diabetic neuropathic ulcer irrigation and debridement measuring 8 x 4 x 0.6 cm including skin, dermis, subcutaneous tissue, and fascia. 2. Incision and drainage of abscess, lateral foot. 3. Incision and drainage of abscess, dorsal central foot. 4. Incision and drainage of abscess, dorsal medial foot. 5. Tenosynovectomy of the peroneus longus tendon. 6. Tenosynovectomy of the extensor digitorum longus tendons, dorsal foot. 7. Exostectomy of the fourth metatarsal. 8. Exostectomy of the fifth metatarsal. 9. Exostectomy of the cuboid bone Continue IV antibiotics. The patient is to be nonweightbearing on the left lower extremity at all times. All packing was removed from each site. Intraoperative cultures grew Klebsiella, Enterobacter, Pseudomonas, Prevotella. Awaiting final sensitivities. ID input will be appreciated. Long discussion with the patient about the severity of the wound. We also discussed potential surgical treatment if infection worsens. Discharge planninguncertain at this time. Admission and Anticipated Discharge Date Admission Date: July 30, 2021 Subjective The patient has no complaints as far as the left foot. She states it has been quite a bit of drainage since dressing was changed yesterday. She states that she feels this wound may take up to 2 years to heal like her previous wound that she had had on the foot. Physical Exam Constitutional: WD/WN, vitals as above no acute distress Musculoskeletal: Left foot: Well approximated dorsal foot incisions. No drainage with mild erythema. Rest of the packing was removed from the sites. The lateral aspect of the foot has a well approximated incision along the fifth metatarsal. All sutures are in place. There is mild to moderate erythema. There is a large ulceration of approximately 7 to 8 cm. Base of the fifth metatarsal is visible. There is mild serosanguineous drainage from the area. Results & Data ([facility]) Vital Signs (Past 12 Hours) Vital Signs Temp Pulse Resp BP Pulse Ox 08/04/21 10:45 36.7 C 80 18 134/72 94 08/04/21 07:30 36.8 C 85 18 139/74 94
[2021-08-04] MEDS: CEFEPIME 1,000 MG in SYRINGE 0 ML IV SCH (16:47)
[2021-08-04] MEDS: metroNIDAZOLE 500 MG TAB PO SCH ×2 (17:18→21:06)
[2021-08-04] MEDS: INSULIN HUMAN NPH SC SCH (17:19)
[2021-08-04] MEDS: SENNA 8.6 MG TAB PO SCH (21:05)
--- NOTE | 2021-08-04 21:46 | Hospitalist Progress Note ---
Date of Service August 04, 2021 Assessment & Plan (1) Osteomyelitis of left foot: (2) Ulcer of left midfoot: (3) Insulin dependent diabetes mellitus: (4) ESRD (end stage renal disease): Plan: This is a 55-year-old female who has significant past medical history of insulin-dependent T2DM, end-stage renal disease on hemodialysis Wednesday, , Wednesday, diabetic neuropathy, HTN, HLD, hyperparathyroidism, anemia of renal disease, history of MRSA bacteremia, metastatic neuroendocrine carcinoma, chronic left foot wound who presents to ED due to worsening of wound for the past 2 weeks. Left foot osteomyelitis Ulcer of left midfoot Patient given ER for worsening left foot wound MRI of left foot showed large skin wound/ulceration within the plantar lateral aspect of the midfoot which measures approximately 5 cm in length. Deep to the skin wound there is cortical destruction at the base of the fifth metatarsal and cuboid bone consistent with an osteomyelitis. There are additional areas of abnormal marrow signal within the base of the second through fourth metatarsals as well as the middle and lateral cuneiform bones. This is also suspicious for osteomyelitis. Scattered areas of soft tissue gas and small loculated fluid collections dorsal to the third and fourth tarsometatarsal joints. These likely represent small abscesses. Arterial duplex: atherosclerotic plaque with evidence of peripheral vascular disease as above. Mildly elevated velocities in the popliteal artery suggests at least mild stenosis. Elevated Procalcitonin at 6.2 and CRP 26.3 Wound cx grew gram negative bacilli Ortho on board S/p day #1 Left Diabetic Foot Ulcer Incision and Drainage x2 dorsal foot, 1x lateral foot, tenosynovectomy of peroneus longus, tenosynovectomy of extensor digitorum, exostectomy 4th, 5th and cuboid bone by ortho Continue nonweightbearing to left lower extremity Continue Empiric IV vancomycin and cefepime -recent wound cultures grew Pseudomonas and MRSA Wound cx from the I&D on 08/01 grew gram negative bacilli ID on board and recommended IV Vanco + Cefepime + PO Metronidazole Sent tigetext to ID dr. Antunez about final abx regimen and duration, waiting for reply All packing was removed from each site as per ortho Continue daily wound care PT/OT eval Insulin-dependent T2DM Most recent hemoglobin A1c 5.1 NPH, NovoLog per protocol Pharmacy on board for glycemic management Continue monitor blood sugar End-stage renal disease on hemodialysis Hemodialysis is Wednesday Nephrology on board Next HD is scheduled for Wednesday Neuroendocrine carcinoma with metastatic disease Chronic pain secondary to cancer, follows palliative care for pain management On methadone and hydromorphone s/p XRT, follows Dr. Hannon Anemia of renal disease Hemoglobin 7.7 today S/P 1 unit PRBC during the hospital course Continue monitor hemoglobin after surgical procedure DVT ppx: Heparin SQ on hold due to recent surgery On SCD SCD FULL CODE Admission and Anticipated Discharge Date Admission Date: July 30, 2021 Subjective Patient was seen and examined for postop follow-up of L foot osteomyelitis Sitting in chair with no acute distress Denies any pain in the left foot Denies any chest pain, palpitation, dizziness, shortness of breath. Review of Systems Review of Systems: All systems reviewed & are unremarkable except as noted in Subjective Physical Exam Physical Exam: General- No acute distress Head- atraumatic Eyes- PERRL, EOMI, ENT- oropharynx clear Neck- supple, no JVD Lungs- clear to auscultation Heart- regular rhythm Abdomen- normal bowel sounds, soft, nontender Extremities- no calf tenderness, + wound to the lateral aspect of L mid foot wrapped with dressing Neuro- alert, oriented x 3; PERRL, EOMI; no facial palsy; no dysarthria Skin- warm & dry Results & Data Results & Data ([facility]) Vital Signs (Past 12 Hours) Vital Signs Temp Pulse Resp BP Pulse Ox 08/04/21 10:45 36.7 C 80 18 134/72 94
[2021-08-05] MEDS: LEVOTHYROXINE SODIUM 125 MCG TABLET PO SCH (06:11)
[2021-08-05] MEDS ORDERED: HEPARIN SOD (PORCINE) 1000 UNIT/ML IV ONE (07:56)
[2021-08-05] MEDS ORDERED: SODIUM CHLORIDE 0.9% 1000ML 1,000 ML IV PRN (07:56)
[2021-08-05] MEDS ORDERED: EPOETIN ALFA 20,000 UNITS/ML VIAL IV ONE (08:15)
[2021-08-05 08:30] LABS: BUN Creatinine Ratio 11.2 (10-20); Est GFR (African American) 9.9 ml/min; Est GFR (Non-African American) 8.6 ml/min; Potassium 3.3 mmol/L (3.5-5.1)
[2021-08-05 08:36] LABS: Hematocrit (blood only) 24.7 % (37-47); Hemoglobin 7.3 g/dL (12.0-16.0); Mean Corpuscular Hemoglobin 29.7 pg (25-34); Mean Corpuscular Hgb Conc 29.6 g/dL (32-36); Mean Corpuscular Volume 100.4 fL (80-100); Mean Platelet Volume 9.6 fL (7.4-10.4); Platelet Count 258 K/uL (130-400); RDW Coefficient of Variation 17.3 % (11.5-14.5); RDW Standard Deviation 63.6 fL (36.4-46.3); Red Blood Count 2.46 M/uL (4.2-5.4); White Blood Count 7.28 K/uL (4.8-10.8)
[2021-08-05] MEDS: INSULIN ASPART PER UNIT SC SCH ×4 (08:46→21:54)
[2021-08-05] MEDS: INSULIN HUMAN NPH SC SCH ×2 (08:48→17:39)
--- NOTE | 2021-08-05 08:58 | Pharmacy Report ---
Pharmacy [facility] Short Note - Date of Service August 05, 2021 - Assessment & Plan Assessment 55 year old F receiving Vancomycin and Cefepime for treatment of left foot osteomyelitis. * Pertinent microbiologic data includes: * h/o MRSA in left foot from 04/2021 * 07/30/21: L foot cx grew P. aeruginosa (pansensitive) and K. pneumoniae (R to cefazolin) * 08/01/21: L foot OR cx grew P. aeruginosa (pansensitive), E. cloacae (I to ceftriaxone), K. pneumoniae (I to cefazolin) and P. melaninogenica (GN anaerobe) * Day #7 of antimicrobial therapy * [place] ID on board - initial rec: Vancomycin + Cefepime + PO Metronidazole * PO Metronidazole just started 08/04/21 * Hospitalist awaiting final recommendation from ID prior to discharge Plan Vancomycin * Pre-HD random level was 16.9 mcg/mL this AM which is therapeutic * Will give Vancomycin 750 mg IV x 1 post-HD today * Ordered random level for (08/07/21) prior to next HD session Cefepime * 1000 mg IV every 24 hours (after HD) is appropriate Metronidazole * 500 mg PO every 8 hours is appropriate Pharmacy will continue to follow and will adjust dose/frequency as necessary. Thank you.
--- NOTE | 2021-08-05 12:08 | Dialysis Progress Note ---
Date of Service August 05, 2021 Assessment & Plan (1) ESRD (end stage renal disease): Plan: Patient with ESRD on dialysis Wednesday. HD 08/02 with net UF of 1 L; going for 1.5L UF today but unfortunately her dialyzer clotted abuptly, w/o ability to return about 200 mL blood. Electrolytes are acceptable as of 08/03 no signs of volume overload-K remains on lower side. Care d/w Dr Mak -would not resume HD today; Next dialysis will be on . -Renally dose antibiotics for GFR less than 25 mL/min while on dialysis. -note pt on regular diet and K yesterday 3.3 so reg diet appropriate -will need abtx as OP on HD; will need to verify her travel plans to dialysis are sound -- pt tells me she plans to drive herself 2 days weekly but still use knee walker -today received intensified dose of AMEENA, after d/w oncology given her NET >>>>recommended that Dr Mak give pRBC x 1 unit SLOWLY later today Admission and Anticipated Discharge Date Admission Date: July 30, 2021 Subjective no interval clinical events except told by ortho to be NWB R foot. no sob, no n/v; seen on HD approx 0930; she was tolerating tx well and hoping for d/c home Review of Systems Review of Systems: All systems reviewed & are unremarkable except as noted in Subjective Physical Exam Constitutional: well developed and well nourished; no acute distress Eyes: EOM intact bilaterally ENMT: Ears: no external ear abnormality Nose: no external nose abnormality Mouth: + dry oral mucous membranes Neck: no nuchal rigidity Respiratory: normal respiratory effort Auscultation: + diminished lung sounds Cardiovascular: Rate/Rhythm: regular rate and regular rhythm Heart Sounds: + murmur Extremities: + edema (trace) Gastrointestinal (Abdomen): Inspection/Auscultation: normal bowel sounds Percussion/Palpation: abdomen soft; abdomen nontender Musculoskeletal: Extremities: strength 5/5 throughout R foot wrapped Skin: no rashes, warm and dry Neurologic: rodriguez, fluent speech, no tremor Psychiatric: Orientation: oriented x 3 Insight: good insight Judgement: good judgement Results & Data ([facility]) Vital Signs (Past 12 Hours) Vital Signs Temp Pulse Pulse Pulse Resp BP BP 08/05/21 11:40 82 122/63 08/05/21 11:20 80 101/52 L 08/05/21 11:00 81 111/57 L 08/05/21 10:40 82 114/54 L 08/05/21 10:20 87 113/53 L 08/05/21 10:00 89 129/61 08/05/21 09:40 83 124/64 08/05/21 09:20 94 H 146/68 H 08/05/21 09:08 37.1 C 90 08/05/21 07:41 36.9 C 86 18 132/72 08/05/21 00:07 37.6 C H Pulse Ox 08/05/21 11:40 08/05/21 11:20 08/05/21 11:00 08/05/21 10:40 08/05/21 10:20 08/05/21 10:00 08/05/21 09:40 08/05/21 09:20 08/05/21 09:08 08/05/21 07:41 96 08/05/21 00:07 Laboratory Results 08/05/21 06:59 08/05/21 06:59
[2021-08-05] MEDS ORDERED: SODIUM CHLORIDE 0.9% 250 ML IV PRN (12:13)
[2021-08-05] MEDS: MULTIVITAMIN TAB PO SCH (12:50)
[2021-08-05] MEDS: GABAPENTIN 100 MG CAP PO SCH ×3 (12:50→21:22)
[2021-08-05] MEDS: metroNIDAZOLE 500 MG TAB PO SCH ×3 (12:51→21:23)
[2021-08-05] MEDS: DOCUSATE SODIUM 100 MG CAP PO SCH ×2 (12:52→21:26)
[2021-08-05] MEDS: SEVELAMER HCL 800 MG TABLET PO SCH ×3 (12:52→18:10)
[2021-08-05] MEDS: METHADONE HCL 5 MG TAB PO SCH ×3 (12:55→21:26)
[2021-08-05] MEDS: HEPARIN SOD (PORCINE) 1000 UNIT/ML IV SCH (13:08)
--- NOTE | 2021-08-05 14:45 | Orthopedic Progress Note ---
Date of Service August 05, 2021 Assessment & Plan (1) Ulcer of left midfoot: Plan: POD #3 s/p 1. Left foot diabetic neuropathic ulcer irrigation and debridement measuring 8 x 4 x 0.6 cm including skin, dermis, subcutaneous tissue, and fascia. 2. Incision and drainage of abscess, lateral foot. 3. Incision and drainage of abscess, dorsal central foot. 4. Incision and drainage of abscess, dorsal medial foot. 5. Tenosynovectomy of the peroneus longus tendon. 6. Tenosynovectomy of the extensor digitorum longus tendons, dorsal foot. 7. Exostectomy of the fourth metatarsal. 8. Exostectomy of the fifth metatarsal. 9. Exostectomy of the cuboid bone Consult placed for Wound Care to see if wound vac possible. Continue IV antibiotics. The patient is to be nonweightbearing on the left lower extremity at all times. Intraoperative cultures grew Klebsiella, Enterobacter, Pseudomonas, Prevotella. Awaiting final sensitivities. ID input will be appreciated. Long discussion with the patient about the severity of the wound. We also discussed potential surgical treatment if infection worsens. 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 Pain controlled. Sitting up in bed watching TV. Noted drainage on the dressing/pillow case. Physical Exam Physical Exam: Dressing removed. Large open wound on lateral plantar surface. Moderate serous drainage noted on dresssing. No overt odor. Open wound is deep to bony surfaces. Dorsal wounds benign. No erythema. Wounds well approximated. Wounds redressed with adaptic, 4x4's, ABD's, kerlix, and Sameer wrap. Results & Data ([facility]) Vital Signs (Past 12 Hours) Vital Signs Temp Pulse Pulse Pulse Resp BP BP 08/05/21 13:40 37 C 98 H 18 128/67 08/05/21 12:05 37.4 C 90 119/55 L 08/05/21 11:40 82 122/63 08/05/21 11:20 80 101/52 L 08/05/21 11:00 81 111/57 L 08/05/21 10:40 82 114/54 L 08/05/21 10:20 87 113/53 L 08/05/21 10:00 89 129/61 08/05/21 09:40 83 124/64 08/05/21 09:20 94 H 146/68 H 08/05/21 09:08 37.1 C 90 08/05/21 07:41 36.9 C 86 18 132/72 Pulse Ox 08/05/21 13:40 98 08/05/21 12:05 08/05/21 11:40 08/05/21 11:20 08/05/21 11:00 08/05/21 10:40 08/05/21 10:20 08/05/21 10:00 08/05/21 09:40 08/05/21 09:20 08/05/21 09:08 08/05/21 07:41 96
[2021-08-05] MEDS ORDERED: VANCOMYCIN HCL 750 MG in SODIUM CHLORIDE 0.9% 250 ML IV ONE (16:00)
[2021-08-05] MEDS: ACETAMINOPHEN 325 MG TAB PO PRN (17:31)
[2021-08-05] MEDS: CEFEPIME 1,000 MG in SYRINGE 0 ML IV SCH (21:18)
[2021-08-05] MEDS: SENNA 8.6 MG TAB PO SCH (21:23)
--- NOTE | 2021-08-05 23:15 | Hospitalist Progress Note ---
Date of Service August 05, 2021 Assessment & Plan (1) Osteomyelitis of left foot: (2) Ulcer of left midfoot: (3) Insulin dependent diabetes mellitus: (4) ESRD (end stage renal disease): Plan: This is a 55-year-old female who has significant past medical history of insulin-dependent T2DM, end-stage renal disease on hemodialysis Wednesday, , Wednesday, diabetic neuropathy, HTN, HLD, hyperparathyroidism, anemia of renal disease, history of MRSA bacteremia, metastatic neuroendocrine carcinoma, chronic left foot wound who presents to ED due to worsening of wound for the past 2 weeks. Left foot osteomyelitis Ulcer of left midfoot Patient given ER for worsening left foot wound MRI of left foot showed large skin wound/ulceration within the plantar lateral aspect of the midfoot which measures approximately 5 cm in length. Deep to the skin wound there is cortical destruction at the base of the fifth metatarsal and cuboid bone consistent with an osteomyelitis. There are additional areas of abnormal marrow signal within the base of the second through fourth metatarsals as well as the middle and lateral cuneiform bones. This is also suspicious for osteomyelitis. Scattered areas of soft tissue gas and small loculated fluid collections dorsal to the third and fourth tarsometatarsal joints. These likely represent small abscesses. Arterial duplex: atherosclerotic plaque with evidence of peripheral vascular disease as above. Mildly elevated velocities in the popliteal artery suggests at least mild stenosis. Elevated Procalcitonin at 6.2 and CRP 26.3 Wound cx grew gram negative bacilli Ortho on board S/p day #3 Left Diabetic Foot Ulcer Incision and Drainage x2 dorsal foot, 1x lateral foot, tenosynovectomy of peroneus longus, tenosynovectomy of extensor digitorum, exostectomy 4th, 5th and cuboid bone by ortho Continue nonweightbearing to left lower extremity Continue Empiric IV vancomycin and cefepime -recent wound cultures grew Pseudomonas and MRSA Wound cx from the I&D on 08/01 grew gram negative bacilli ID on board and recommended IV Vanco + Cefepime + PO Metronidazole Sent tigetext to ID dr. Antunez about final abx regimen and duration, waiting for reply All packing was removed from each site as per ortho Case discussed with ID dr. Antunez that recommended Cefepime IV during dialysis to be given during HD Will d/c Vanco and Metronidazole Continue daily wound care Wound care consult to get evaluated for wound vac PT/OT eval Insulin-dependent T2DM Most recent hemoglobin A1c 5.1 NPH, NovoLog per protocol Pharmacy on board for glycemic management Continue monitor blood sugar End-stage renal disease on hemodialysis Hemodialysis is Wednesday Nephrology on board Next HD is scheduled for Neuroendocrine carcinoma with metastatic disease Chronic pain secondary to cancer, follows palliative care for pain management On methadone and hydromorphone s/p XRT, follows Dr. Hannon Anemia of renal disease Hemoglobin 7.3 today S/P 1 units PRBC last She lost about 200cc of blood during HD Will plan to transfuse 1 unit prbc slowly today Continue monitor hemoglobin DVT ppx: Heparin SQ on hold due to recent surgery On SCD SCD FULL CODE Disposition Plan to discharge once stable from ortho standpoint Admission and Anticipated Discharge Date Admission Date: July 30, 2021 Subjective Patient was seen and examined for postop follow-up of L foot osteomyelitis Sitting in chair with no acute distress Denies any pain in the left foot During HD today, pt HD access got clotted and she lost about 200cc of blood Denies any chest pain, palpitation, dizziness, shortness of breath. Review of Systems Review of Systems: All systems reviewed & are unremarkable except as noted in Subjective Physical Exam Physical Exam: General- No acute distress Head- atraumatic Eyes- PERRL, EOMI, ENT- oropharynx clear Neck- supple, no JVD Lungs- clear to auscultation Heart- regular rhythm Abdomen- normal bowel sounds, soft, nontender Extremities- no calf tenderness, + wound to the lateral aspect of L mid foot wrapped with dressing Neuro- alert, oriented x 3; PERRL, EOMI; no facial palsy; no dysarthria Skin- warm & dry Results & Data Results & Data ([facility]) Vital Signs (Past 12 Hours) Vital Signs Temp Pulse Pulse Pulse Resp BP BP 08/05/21 22:31 37.5 C 94 H 16 153/75 H 08/05/21 19:19 37.5 C 94 H 18 104/61 08/05/21 17:51 37 C 109 H 18 134/66 08/05/21 16:51 37.8 C H 99 H 18 151/65 H 08/05/21 16:24 37.1 C 90 18 128/69 08/05/21 16:21 37.8 C H 91 H 16 121/63 08/05/21 15:43 37.3 C 93 H 18 127/63 08/05/21 13:40 37 C 98 H 18 128/67 08/05/21 12:05 37.4 C 90 119/55 L 08/05/21 11:40 82 122/63 08/05/21 11:20 80 101/52 L Pulse Ox 08/05/21 22:31 93 08/05/21 19:19 95 08/05/21 17:51 97 08/05/21 16:51 98 08/05/21 16:24 96 08/05/21 16:21 96 08/05/21 15:43 08/05/21 13:40 98 08/05/21 12:05 08/05/21 11:40 08/05/21 11:20
[2021-08-06] MEDS: LEVOTHYROXINE SODIUM 125 MCG TABLET PO SCH (05:56)
[2021-08-06] MEDS: INSULIN ASPART PER UNIT SC SCH ×4 (08:43→21:22)
[2021-08-06] MEDS: INSULIN HUMAN NPH SC SCH ×2 (08:46→17:38)
[2021-08-06 09:22] LABS: Hematocrit (blood only) 27.1 % (37-47); Hemoglobin 8.2 g/dL (12.0-16.0); Mean Corpuscular Hemoglobin 29.5 pg (25-34); Mean Corpuscular Hgb Conc 30.3 g/dL (32-36); Mean Corpuscular Volume 97.5 fL (80-100); Mean Platelet Volume 9.5 fL (7.4-10.4); Platelet Count 220 K/uL (130-400); RDW Coefficient of Variation 17.9 % (11.5-14.5); RDW Standard Deviation 63.7 fL (36.4-46.3); Red Blood Count 2.78 M/uL (4.2-5.4); White Blood Count 9.35 K/uL (4.8-10.8)
[2021-08-06] MEDS: MULTIVITAMIN TAB PO SCH (09:32)
[2021-08-06] MEDS: GABAPENTIN 100 MG CAP PO SCH ×3 (09:32→20:17)
[2021-08-06] MEDS: SEVELAMER HCL 800 MG TABLET PO SCH ×3 (09:33→17:44)
[2021-08-06] MEDS: DOCUSATE SODIUM 100 MG CAP PO SCH ×2 (09:34→20:17)
[2021-08-06] MEDS: METHADONE HCL 5 MG TAB PO SCH ×3 (09:36→20:18)
[2021-08-06 09:53] LABS: BUN Creatinine Ratio 12.9 (10-20); Calcium 8.7 mg/dl (8.5-10.1); Creatinine Clr Calc Pharmacy 17.7 ml/min; Est GFR (African American) 13.2 ml/min; Est GFR (Non-African American) 11.4 ml/min; Potassium 3.4 mmol/L (3.5-5.1)
--- NOTE | 2021-08-06 15:30 | Orthopedic Progress Note ---
Date of Service August 06, 2021 Assessment & Plan (1) Ulcer of left midfoot: Plan: POD #5 s/p 1. Left foot diabetic neuropathic ulcer irrigation and debridement measuring 8 x 4 x 0.6 cm including skin, dermis, subcutaneous tissue, and fascia. 2. Incision and drainage of abscess, lateral foot. 3. Incision and drainage of abscess, dorsal central foot. 4. Incision and drainage of abscess, dorsal medial foot. 5. Tenosynovectomy of the peroneus longus tendon. 6. Tenosynovectomy of the extensor digitorum longus tendons, dorsal foot. 7. Exostectomy of the fourth metatarsal. 8. Exostectomy of the fifth metatarsal. 9. Exostectomy of the cuboid bone Wound VAC placed on left foot wound. Continue IV antibiotics. The patient is to be nonweightbearing on the left lower extremity at all times. Continue elevation of heels off of bed. Patient starting to have breakdown on the left heel. Antibiotics as per hospitalist service/ID team. Discharge planning will need termination clerk IV antibx Admission and Anticipated Discharge Date Admission Date: July 30, 2021 Subjective Postop day 5 Patient sitting in bed conversing with visitor. Having some pain at this time but tolerating well. No other complaints at this time. Physical Exam Physical Exam: Wound VAC applied by wound care team today. VAC is currently functioning well. Small amount of fluid in the drainage tube. Results & Data ([facility]) Vital Signs (Past 12 Hours) Vital Signs Temp Pulse Resp BP Pulse Ox 08/06/21 07:19 37.5 C 92 H 18 138/79 94 Diagnostic Findings Name: TANIA YOUSIF Acct: [id number] Status: ADM [place] : 1965 [facility] [place] Date: 07/30/21 Age: 55 Sex: F Dis Date: Loc: Medical/Surgical/Ortho 3 [address] Rm/Bed: E322-1 Spec: [id number] Collected: 08/01/21 Received: 08/01/[address]: Ab PatD.O. Copy To: Hugo Parmar MD Source: Foot,Left OV Order: Ordered: Aer/Iris Cult/Sm Comments: Comment Culture #2: Left Dorsal Foot Abscess Procedure Result Verified Site Gram Stain Final 08/02/21-652 Gram Stain Result Many WBCs Seen No Organisms Seen Aero/Iris Cult Final 08/06/21-2 Organism 1 Klebsiella pneumoniae Quantity Rare Sens No Sensitivities to Follow Organism 2 Enterobacter cloacae Quantity Rare Sens No Sensitivities to Follow Organism 3 Pseudomonas aeruginosa Quantity Rare Sens No Sensitivities to Follow Organism 4 Prevotella melaninogenica Quantity Moderate Sens No Sensitivities to Follow
--- NOTE | 2021-08-06 16:48 | Nephrology Progress Note ---
Date of Service August 06, 2021 Assessment & Plan (1) ESRD (end stage renal disease): Plan: Patient with ESRD on dialysis Wednesday. HD 08/02 with net UF of 1 L; going for 1.5L UF yesterday but unfortunately her dialyzer clotted abuptly, w/o ability to return about 200 mL blood; had 1.2 L UF. Electrolytes are acceptable as of 08/03 no signs of volume overload-K remains on lower side. Care d/w Dr Mak and pt had 1 unit prBC on 08/05 -Next dialysis will be on as OP or if cannot be safely d/c as IP -Renally dose antibiotics for GFR less than 25 mL/min while on dialysis. -note pt on regular diet and K still appropriate -have discussed her care w/ dialysis unit > they have order from me to give abtx as ordered by hospitalist at HD w/ abtx to be provided by pt -today received intensified dose of AMEENA, after d/w oncology given her NET Admission and Anticipated Discharge Date Admission Date: July 30, 2021 Subjective no interval clinical events. will need cefepime at HD adn we are arranging; has realized she needs a ride to HD/ can't drive. no sob, no n/v. getting vac applied to L foot Review of Systems Review of Systems: All systems reviewed & are unremarkable except as noted in Subjective Physical Exam Constitutional: well developed and well nourished; no acute distress Eyes: EOM intact bilaterally ENMT: Ears: no external ear abnormality Nose: no external nose abnormality Mouth: + dry oral mucous membranes Neck: no nuchal rigidity Respiratory: normal respiratory effort Auscultation: + diminished lung sounds Cardiovascular: Rate/Rhythm: regular rate and regular rhythm Heart Sounds: + murmur Extremities: + edema (trace) Gastrointestinal (Abdomen): Inspection/Auscultation: normal bowel sounds Percussion/Palpation: abdomen soft; abdomen nontender Musculoskeletal: Extremities: strength 5/5 throughout Skin: no rashes, warm and dry L foot wound photo reviewed Psychiatric: Orientation: oriented x 3 Insight: good insight Judgement: good judgement Results & Data ([facility]) Vital Signs (Past 12 Hours) Vital Signs Temp Pulse Resp BP Pulse Ox 08/06/21 16:17 37 C 91 H 18 131/74 98 08/06/21 07:19 37.5 C 92 H 18 138/79 94 Laboratory Results 08/06/21 08:57 08/06/21 08:57
--- NOTE | 2021-08-06 17:29 | Hospitalist Progress Note ---
Date of Service August 06, 2021 Assessment & Plan (1) Osteomyelitis of left foot: (2) Ulcer of left midfoot: (3) Insulin dependent diabetes mellitus: (4) ESRD (end stage renal disease): Plan: This is a 55-year-old female who has significant past medical history of insulin-dependent T2DM, end-stage renal disease on hemodialysis Wednesday, , Wednesday, diabetic neuropathy, HTN, HLD, hyperparathyroidism, anemia of renal disease, history of MRSA bacteremia, metastatic neuroendocrine carcinoma, chronic left foot wound who presents to ED due to worsening of wound for the past 2 weeks. Left foot osteomyelitis Ulcer of left midfoot Patient given ER for worsening left foot wound MRI of left foot showed large skin wound/ulceration within the plantar lateral aspect of the midfoot which measures approximately 5 cm in length. Deep to the skin wound there is cortical destruction at the base of the fifth metatarsal and cuboid bone consistent with an osteomyelitis. There are additional areas of abnormal marrow signal within the base of the second through fourth metatarsals as well as the middle and lateral cuneiform bones. This is also suspicious for osteomyelitis. Scattered areas of soft tissue gas and small loculated fluid collections dorsal to the third and fourth tarsometatarsal joints. These likely represent small abscesses. Arterial duplex: atherosclerotic plaque with evidence of peripheral vascular disease as above. Mildly elevated velocities in the popliteal artery suggests at least mild stenosis. Elevated Procalcitonin at 6.2 and CRP 26.3 Wound cx grew gram negative bacilli Ortho on board S/p day #3 Left Diabetic Foot Ulcer Incision and Drainage x2 dorsal foot, 1x lateral foot, tenosynovectomy of peroneus longus, tenosynovectomy of extensor digitorum, exostectomy 4th, 5th and cuboid bone by ortho Continue nonweightbearing to left lower extremity Continue Empiric IV vancomycin and cefepime -recent wound cultures grew Pseudomonas and MRSA Wound cx from the I&D on 08/01 grew gram negative bacilli ID on board and recommended IV Vanco + Cefepime + PO Metronidazole Sent tigetext to ID dr. Antunez about final abx regimen and duration, waiting for reply All packing was removed from each site as per ortho Case discussed with ID dr. Antunez that recommended Cefepime IV during dialysis to be given during HD Will d/c Vanco and Metronidazole She remains medically stable to be discharged Intravenous cefepime 2 g following each dialysis that will be on Wednesday, and Wednesday and will be continued until 09/18/2021 We will check weekly CBC and CMP while on intravenous cefepime Insulin-dependent T2DM Most recent hemoglobin A1c 5.1 NPH, NovoLog per protocol Pharmacy on board for glycemic management Continue monitor blood sugar End-stage renal disease on hemodialysis Hemodialysis is Wednesday Nephrology on board Next HD is scheduled for Neuroendocrine carcinoma with metastatic disease Chronic pain secondary to cancer, follows palliative care for pain management On methadone and hydromorphone s/p XRT, follows Dr. Hannon Anemia of renal disease Hemoglobin 7.3 today S/P 1 units PRBC last She lost about 200cc of blood during HD Will plan to transfuse 1 unit prbc slowly today Continue monitor hemoglobin DVT ppx: Heparin SQ on hold due to recent surgery On SCD SCD FULL CODE Disposition Plan to discharge once stable from ortho standpoint Admission and Anticipated Discharge Date Admission Date: July 30, 2021 Subjective 08/06/2021 The patient was seen and examined in medical floor She has been stable and wants to go home today Denies any significant symptoms Review of Systems Review of Systems: All systems reviewed and are unremarkable except as noted below Physical Exam Physical Exam: Lying in bed comfortably Constitutional: well developed, well nourished, + ill appearing and + obese Eyes: PERRL, conjunctivae normal, anicteric sclerae ENMT: external ear and nose normal, oropharynx normal Neck: trachea midline, no thyromegaly Respiratory: no respiratory distress Auscultation: lungs clear to auscultation bilaterally; no crackles Cardiovascular: Rate/Rhythm: regular rate and regular rhythm; not tachycardic Heart Sounds: normal S1, normal S2 and + murmur (2/6 ESM over precordium) Gastrointestinal (Abdomen): Inspection/Auscultation: normal bowel sounds; abdomen not distended Percussion/Palpation: abdomen soft; abdomen nontender Musculoskeletal: No acute arthritis in any joint. Left ankle has the wound VAC in place Neurologic: Alert, awake and oriented x3 Results & Data Results & Data ([facility]) Vital Signs (Past 12 Hours) Vital Signs Temp Pulse Resp BP Pulse Ox 08/06/21 16:17 37 C 91 H 18 131/74 98 08/06/21 07:19 37.5 C 92 H 18 138/79 94 Laboratory Results Short CBC 08/06/21 Range/Units 08:57 WBC 9.35 (4.8-10.8) K/uL Hgb 8.2 L (12.0-16.0) g/dL Hct 27.1 L (37-47) % Plt Count 220 (130-400) K/uL BMP 08/06/21 08:57 Sodium 133 L Potassium 3.4 L Chloride 103 Carbon Dioxide 23 BUN 54 H Creatinine 4.17 H D Glucose 199 H Calcium 8.7 Medications Administered Current Inpatient Medications Acetaminophen (Acetaminophen 325 Mg Tab) 650 mg PO Q4H PRN PRN Reason: Pain or Fever Stop: 08/29/21 18:40 Last Admin: 08/05/21 17:31 Dose: 650 mg Documented by: Bisacodyl (Bisacodyl 10 Mg Supp) 10 mg PA DAILY PRN PRN Reason: Constipation Stop: 08/31/21 21:53 Dextrose (Dextrose 50% 50 Ml Syringe) 25 - 50 ml IV UD PRN; Protocol PRN Reason: Hypoglycemia Protocol Stop: 08/29/21 18:40 Docusate Sodium (Docusate Sodium 100 Mg Cap) 100 mg PO BID KIRT Stop: 08/29/21 20:59 Last Admin: 08/06/21 09:34 Dose: 100 mg Documented by: Gabapentin (Gabapentin 100 Mg Cap) 200 mg PO TID KIRT Stop: 08/29/21 20:59 Last Admin: 08/06/21 15:28 Dose: 200 mg Documented by: Glucagon (Glucagon For Inj 1 Mg Vial) 1 mg SQ UD PRN; Protocol PRN Reason: Hypoglycemia Protocol Stop: 08/29/21 18:40 Glucose (Glucose 10 Tabs/Tube) 4 - 8 tabs PO UD PRN; Protocol PRN Reason: Hypoglycemia Protocol Stop: 08/29/21 18:40 Glucose (Glucose 40% Gel 15 Gm Tube) 15 - 30 gm PO UD PRN; Protocol PRN Reason: Hypoglycemia Protocol Stop: 08/29/21 18:40 Heparin Sodium (Porcine) (Heparin Sod 5,000 Unit/0.5 Ml Vial) 5,000 units SQ Q8 KIRT Stop: 08/29/21 21:59 Last Admin: 07/31/21 21:26 Dose: 5,000 units Documented by: Hydromorphone HCl (Hydromorphone Hcl 8 Mg Tab) 8 mg PO Q3H PRN PRN Reason: Pain Stop: 08/13/21 18:57 Last Admin: 08/06/21 08:50 Dose: 8 mg Documented by: Cefepime HCl 2,000 mg/ Syringe 20 mls @ 5 mls/min IV TuThSa@1600 [facility] Stop: 09/18/21 15:59 Insulin Aspart (Insulin Aspart Per Unit) 0 units SC ACHS [facility] Stop: 08/29/21 18:40 Last Admin: 08/06/21 12:32 Dose: 9 units Documented by: Insulin Human NPH (Insulin Human Nph) 30 units SC BIDM [facility]; Protocol Stop: 09/03/21 16:59 Last Admin: 08/06/21 08:46 Dose: 30 units Documented by: Levothyroxine Sodium (Levothyroxine Sodium 125 Mcg Tablet) 125 mcg PO DAILYBB [facility] Stop: 08/30/21 06:29 Last Admin: 08/06/21 05:56 Dose: 125 mcg Documented by: Magnesium Hydroxide (Magnesium Hydroxide Susp 30 Ml Udc) 30 ml PO Q6H PRN PRN Reason: Constipation Stop: 08/31/21 21:53 Methadone HCl (Methadone Hcl 5 Mg Tab) 5 mg PO TID [facility] Stop: 08/13/21 20:59 Last Admin: 08/06/21 15:27 Dose: 5 mg Documented by: Metoclopramide HCl (Metoclopramide Hcl Inj 5 Mg/Ml 2 Ml Vial) 10 mg IV Q6H PRN PRN Reason: Nausea And Vomiting Stop: 08/31/21 21:53 Miscellaneous (Carbohydrates For Hypoglycemia ) 15 - 30 gm PO UD PRN PRN Reason: Hypoglycemia Protocol Stop: 08/29/21 18:40 Multivitamins (Multivitamin Tab) 1 tab PO QAM [facility] Stop: 09/01/21 08:59 Last Admin: 08/06/21 09:32 Dose: 1 tab Documented by: Naloxone HCl (Naloxone Hcl 0.4 Mg/1 Ml Vial/Carp) 0.1 mg IV Q5M PRN PRN Reason: Oversedation/Resp Depression Stop: 08/31/21 21:53 Ondansetron HCl (Ondansetron Inj 2 Mg/Ml 2 Ml Vial) 4 mg IV Q6H PRN PRN Reason: Nausea And Vomiting Stop: 08/31/21 21:53 Polyethylene Glycol (Polyethylene (Miralax) 17 Gm Pack) 17 gm PO DAILY PRN PRN Reason: Constipation Stop: 08/29/21 18:40 Sennosides (Senna 8.6 Mg Tab) 17.2 mg PO HS KIRT Stop: 09/01/21 20:59 Last Admin: 08/05/21 21:23 Dose: 17.2 mg Documented by: Sevelamer HCl (Sevelamer Hcl 800 Mg Tablet) 1,600 mg PO TIDM K[facility] Stop: 08/29/21 19:14 Last Admin: 08/06/21 12:39 Dose: 1,600 mg Documented by:
[2021-08-06] MEDS: SENNA 8.6 MG TAB PO SCH (20:18)
[2021-08-07] MEDS: LEVOTHYROXINE SODIUM 125 MCG TABLET PO SCH (06:28)
[2021-08-07 06:37] LABS: Est GFR (African American) 10.8 ml/min; Est GFR (Non-African American) 9.3 ml/min
[2021-08-07] MEDS ORDERED: HEPARIN SOD (PORCINE) 1000 UNIT/ML IV ONE (07:07)
[2021-08-07] MEDS ORDERED: SODIUM CHLORIDE 0.9% 1000ML 1,000 ML IV PRN (07:07)
[2021-08-07] MEDS ORDERED: EPOETIN ALFA 20,000 UNITS/ML VIAL IV SCH (07:30)
[2021-08-07] MEDS ORDERED: IRON SUCROSE 100 MG in SYRINGE 0 ML IV ONE (07:30)
[2021-08-07 07:57] VITALS: O2SAT 94
[2021-08-07] MEDS: INSULIN HUMAN NPH SC SCH (08:24)
[2021-08-07] MEDS: SEVELAMER HCL 800 MG TABLET PO SCH ×2 (08:26→12:41)
[2021-08-07] MEDS: GABAPENTIN 100 MG CAP PO SCH ×2 (08:26→13:25)
[2021-08-07] MEDS: MULTIVITAMIN TAB PO SCH (08:26)
[2021-08-07] MEDS: INSULIN ASPART PER UNIT SC SCH ×2 (08:28→12:42)
[2021-08-07] MEDS: DOCUSATE SODIUM 100 MG CAP PO SCH (08:34)
[2021-08-07] MEDS: METHADONE HCL 5 MG TAB PO SCH ×2 (08:34→13:25)
[2021-08-07] MEDS: HEPARIN SOD (PORCINE) 1000 UNIT/ML IV SCH ×2 (10:03→11:51)
[2021-08-07 12:39] VITALS: BP 122/63; TEMP 98.4
--- NOTE | 2021-08-07 13:54 | Nephrology Progress Note ---
Date of Service August 07, 2021 Assessment & Plan (1) ESRD (end stage renal disease): Plan: Patient with ESRD on dialysis Wednesday. HD 08/02 with net UF of 1 L; going for 1.5L UF 08/05 but unfortunately her dialyzer clotted abruptly, w/o ability to return about 200 mL blood; had 1.2 L UF. Electrolytes are acceptable as of 08/03 no signs of volume overload-K remains on lower side. pt had 1 unit prBC on 08/05 -HD today and then Next dialysis will be on Wednesday as OP or if cannot be safely d/c as IP -Renally dose antibiotics for GFR less than 25 mL/min while on dialysis. -note pt on regular diet and K still appropriate -have discussed her care w/ dialysis unit > they have order from me to give abtx as ordered by hospitalist at HD w/ abtx to be provided by pt; labs a/w antibiotics to be managed by pharmacy or hospitalist -today received intensified dose of AMEENA, after d/w oncology given her NET Admission and Anticipated Discharge Date Admission Date: July 30, 2021 Subjective seen on rounds this am 0740; no interval events; still here as OP arrangements still in process alanna to get knee walker Review of Systems Review of Systems: All systems reviewed & are unremarkable except as noted in Subjective Physical Exam Constitutional: well developed and well nourished; no acute distress Eyes: EOM intact bilaterally ENMT: Ears: no external ear abnormality Nose: no external nose abnormality Mouth: + dry oral mucous membranes Neck: no nuchal rigidity Respiratory: normal respiratory effort Auscultation: + diminished lung sounds Cardiovascular: Rate/Rhythm: regular rate and regular rhythm Heart Sounds: + murmur Extremities: + edema (trace) Gastrointestinal (Abdomen): Inspection/Auscultation: normal bowel sounds Percussion/Palpation: abdomen soft; abdomen nontender Musculoskeletal: Extremities: strength 5/5 throughout Skin: no rashes, warm and dry L foot wound not examined; vac in place Psychiatric: Orientation: oriented x 3 Insight: good insight Judgement: good judgement Results & Data ([facility]) Vital Signs (Past 12 Hours) Vital Signs Temp Pulse Pulse Pulse Resp BP BP 08/07/21 12:30 36.9 C 83 122/63 08/07/21 12:00 84 105/56 L 08/07/21 11:40 81 105/57 L 08/07/21 11:20 87 102/53 L 08/07/21 11:00 87 113/58 L 08/07/21 10:40 82 95/55 L 08/07/21 10:20 81 109/55 L 08/07/21 10:00 81 116/57 L 08/07/21 09:40 85 108/55 L 08/07/21 09:20 85 129/60 08/07/21 09:11 89 139/74 08/07/21 09:04 37 C 93 H 08/07/21 07:56 37 C 154/73 H 08/07/21 07:32 36.8 C 80 12 133/75 Pulse Ox 08/07/21 12:30 08/07/21 12:00 08/07/21 11:40 08/07/21 11:20 08/07/21 11:00 08/07/21 10:40 08/07/21 10:20 08/07/21 10:00 08/07/21 09:40 08/07/21 09:20 08/07/21 09:11 08/07/21 09:04 08/07/21 07:56 94 08/07/21 07:32 96 Laboratory Results 08/06/21 08:57 08/07/21 05:37
--- NOTE | 2021-08-07 14:55 | Hospitalist Progress Note ---
Date of Service August 07, 2021 Assessment & Plan (1) Osteomyelitis of left foot: (2) Ulcer of left midfoot: (3) Insulin dependent diabetes mellitus: (4) ESRD (end stage renal disease): Plan: This is a 55-year-old female who has significant past medical history of insulin-dependent T2DM, end-stage renal disease on hemodialysis Wednesday, , Wednesday, diabetic neuropathy, HTN, HLD, hyperparathyroidism, anemia of renal disease, history of MRSA bacteremia, metastatic neuroendocrine carcinoma, chronic left foot wound who presents to ED due to worsening of wound for the past 2 weeks. Left foot osteomyelitis Ulcer of left midfoot Patient given ER for worsening left foot wound MRI of left foot showed large skin wound/ulceration within the plantar lateral aspect of the midfoot which measures approximately 5 cm in length. Deep to the skin wound there is cortical destruction at the base of the fifth metatarsal and cuboid bone consistent with an osteomyelitis. There are additional areas of abnormal marrow signal within the base of the second through fourth metatarsals as well as the middle and lateral cuneiform bones. This is also suspicious for osteomyelitis. Scattered areas of soft tissue gas and small loculated fluid collections dorsal to the third and fourth tarsometatarsal joints. These likely represent small abscesses. Arterial duplex: atherosclerotic plaque with evidence of peripheral vascular disease as above. Mildly elevated velocities in the popliteal artery suggests at least mild stenosis. Elevated Procalcitonin at 6.2 and CRP 26.3 Wound cx grew gram negative bacilli Ortho on board S/p day #4 Left Diabetic Foot Ulcer Incision and Drainage x2 dorsal foot, 1x lateral foot, tenosynovectomy of peroneus longus, tenosynovectomy of extensor digitorum, exostectomy 4th, 5th and cuboid bone by ortho Continue nonweightbearing to left lower extremity Continue Empiric IV vancomycin and cefepime -recent wound cultures grew Pseudomonas and MRSA Wound cx from the I&D on 08/01 grew gram negative bacilli ID on board and recommended IV Vanco + Cefepime + PO Metronidazole Sent tigetext to ID dr. Antunez about final abx regimen and duration, waiting for reply All packing was removed from each site as per ortho Case discussed with ID dr. Antunez that recommended Cefepime IV during dialysis to be given during HD Will d/c Vanco and Metronidazole She remains medically stable to be discharged Intravenous cefepime 2 g following each dialysis that will be on Wednesday, and Wednesday and will be continued until 09/18/2021 We will check weekly CBC and CMP while on intravenous cefepime Should be discharged home this afternoon-everything has been set up by case maker to have the antibiotic as an outpatient Insulin-dependent T2DM Most recent hemoglobin A1c 5.1 NPH, NovoLog per protocol Pharmacy on board for glycemic management Continue monitor blood sugar End-stage renal disease on hemodialysis Hemodialysis is Wednesday Nephrology on board Next HD is scheduled for Neuroendocrine carcinoma with metastatic disease Chronic pain secondary to cancer, follows palliative care for pain management On methadone and hydromorphone s/p XRT, follows Dr. Hannon Anemia of renal disease Hemoglobin 7.3 today S/P 1 units PRBC last She lost about 200cc of blood during HD Will plan to transfuse 1 unit prbc slowly today Continue monitor hemoglobin DVT ppx: Heparin SQ on hold due to recent surgery On SCD SCD FULL CODE Disposition Will be discharged home this afternoon Admission and Anticipated Discharge Date Admission Date: July 30, 2021 Subjective 08/06/2021 The patient was seen and examined in medical floor She has been stable and wants to go home today Denies any significant symptoms 08/07/2021 The patient was seen and examined in medical floor She is a status post hemodialysis today She is ready to go home denies any significant symptoms Review of Systems Review of Systems: All systems reviewed and are unremarkable except as noted below Physical Exam Physical Exam: Lying in bed comfortably Constitutional: well developed, well nourished, + ill appearing and + obese Eyes: PERRL, conjunctivae normal, anicteric sclerae ENMT: external ear and nose normal, oropharynx normal Neck: trachea midline, no thyromegaly Respiratory: no respiratory distress Auscultation: lungs clear to auscultation bilaterally; no crackles Cardiovascular: Rate/Rhythm: regular rate and regular rhythm; not tachycardic Heart Sounds: normal S1, normal S2 and + murmur (2/6 ESM over precordium) Gastrointestinal (Abdomen): Inspection/Auscultation: normal bowel sounds; abdomen not distended Percussion/Palpation: abdomen soft; abdomen nontender Musculoskeletal: No acute arthritis in any joint Neurologic: normal touch/pain/proprioception Results & Data Results & Data ([facility]) Vital Signs (Past 12 Hours) Vital Signs Temp Pulse Pulse Pulse Resp BP BP 08/07/21 12:30 36.9 C 83 122/63 08/07/21 12:00 84 105/56 L 08/07/21 11:40 81 105/57 L 08/07/21 11:20 87 102/53 L 08/07/21 11:00 87 113/58 L 08/07/21 10:40 82 95/55 L 08/07/21 10:20 81 109/55 L 08/07/21 10:00 81 116/57 L 08/07/21 09:40 85 108/55 L 08/07/21 09:20 85 129/60 08/07/21 09:11 89 139/74 08/07/21 09:04 37 C 93 H 08/07/21 07:56 37 C 154/73 H 08/07/21 07:32 36.8 C 80 12 133/75 Pulse Ox 08/07/21 12:30 08/07/21 12:00 08/07/21 11:40 08/07/21 11:20 08/07/21 11:00 08/07/21 10:40 08/07/21 10:20 08/07/21 10:00 08/07/21 09:40 08/07/21 09:20 08/07/21 09:11 08/07/21 09:04 08/07/21 07:56 94 08/07/21 07:32 96 Laboratory Results BMP 08/07/21 05:37 Creatinine 4.91 H* D Medications Administered Current Inpatient Medications Acetaminophen (Acetaminophen 325 Mg Tab) 650 mg PO Q4H PRN PRN Reason: Pain or Fever Stop: 08/29/21 18:40 Last Admin: 08/05/21 17:31 Dose: 650 mg Documented by: Bisacodyl (Bisacodyl 10 Mg Supp) 10 mg CA DAILY PRN PRN Reason: Constipation Stop: 08/31/21 21:53 Dextrose (Dextrose 50% 50 Ml Syringe) 25 - 50 ml IV UD PRN; Protocol PRN Reason: Hypoglycemia Protocol Stop: 08/29/21 18:40 Docusate Sodium (Docusate Sodium 100 Mg Cap) 100 mg PO BID KIRT Stop: 08/29/21 20:59 Last Admin: 08/07/21 08:34 Dose: 100 mg Documented by: Gabapentin (Gabapentin 100 Mg Cap) 200 mg PO TID [facility] Stop: 08/29/21 20:59 Last Admin: 08/07/21 13:25 Dose: 200 mg Documented by: Glucagon (Glucagon For Inj 1 Mg Vial) 1 mg SQ UD PRN; Protocol PRN Reason: Hypoglycemia Protocol Stop: 08/29/21 18:40 Glucose (Glucose 10 Tabs/Tube) 4 - 8 tabs PO UD PRN; Protocol PRN Reason: Hypoglycemia Protocol Stop: 08/29/21 18:40 Glucose (Glucose 40% Gel 15 Gm Tube) 15 - 30 gm PO UD PRN; Protocol PRN Reason: Hypoglycemia Protocol Stop: 08/29/21 18:40 Heparin Sodium (Porcine) (Heparin Sod 5,000 Unit/0.5 Ml Vial) 5,000 units SQ Q8 [facility] Stop: 08/29/21 21:59 Last Admin: 07/31/21 21:26 Dose: 5,000 units Documented by: Hydromorphone HCl (Hydromorphone Hcl 8 Mg Tab) 8 mg PO Q3H PRN PRN Reason: Pain Stop: 08/13/21 18:57 Last Admin: 08/06/21 18:04 Dose: 8 mg Documented by: Cefepime HCl 2,000 mg/ Syringe 20 mls @ 5 mls/min IV TuThSa@1600 [facility] Stop: 09/18/21 15:59 Insulin Aspart (Insulin Aspart Per Unit) 0 units SC ACHS [facility] Stop: 08/29/21 18:40 Last Admin: 08/07/21 12:42 Dose: 9 units Documented by: Insulin Human NPH (Insulin Human Nph) 30 units SC BID [facility]; Protocol Stop: 09/06/21 20:59 Levothyroxine Sodium (Levothyroxine Sodium 125 Mcg Tablet) 125 mcg PO DAILYBB [facility] Stop: 08/30/21 06:29 Last Admin: 08/07/21 06:28 Dose: 125 mcg Documented by: Magnesium Hydroxide (Magnesium Hydroxide Susp 30 Ml Udc) 30 ml PO Q6H PRN PRN Reason: Constipation Stop: 08/31/21 21:53 Methadone HCl (Methadone Hcl 5 Mg Tab) 5 mg PO TID [facility] Stop: 08/13/21 20:59 Last Admin: 08/07/21 13:25 Dose: 5 mg Documented by: Metoclopramide HCl (Metoclopramide Hcl Inj 5 Mg/Ml 2 Ml Vial) 10 mg IV Q6H PRN PRN Reason: Nausea And Vomiting Stop: 08/31/21 21:53 Miscellaneous (Carbohydrates For Hypoglycemia ) 15 - 30 gm PO UD PRN PRN Reason: Hypoglycemia Protocol Stop: 08/29/21 18:40 Multivitamins (Multivitamin Tab) 1 tab PO QAM [facility] Stop: 09/01/21 08:59 Last Admin: 08/07/21 08:26 Dose: 1 tab Documented by: Naloxone HCl (Naloxone Hcl 0.4 Mg/1 Ml Vial/Carp) 0.1 mg IV Q5M PRN PRN Reason: Oversedation/Resp Depression Stop: 08/31/21 21:53 Ondansetron HCl (Ondansetron Inj 2 Mg/Ml 2 Ml Vial) 4 mg IV Q6H PRN PRN Reason: Nausea And Vomiting Stop: 08/31/21 21:53 Polyethylene Glycol (Polyethylene (Miralax) 17 Gm Pack) 17 gm PO DAILY PRN PRN Reason: Constipation Stop: 08/29/21 18:40 Sennosides (Senna 8.6 Mg Tab) 17.2 mg PO HS [facility] Stop: 09/01/21 20:59 Last Admin: 08/06/21 20:18 Dose: 17.2 mg Documented by: Sevelamer HCl (Sevelamer Hcl 800 Mg Tablet) 1,600 mg PO TIDM [facility] Stop: 08/29/21 19:14 Last Admin: 08/07/21 12:41 Dose: 1,600 mg Documented by:
[2021-08-07 15:33] VITALS: PULSE 80
[2021-08-07] MEDS ORDERED: CEFEPIME 2,000 MG in SYRINGE 0 ML IV SCH (16:00)
[2021-08-07] MEDS ORDERED: INSULIN HUMAN NPH SC SCH (21:00)
--- NOTE | 2021-08-14 09:30 | Discharge Summary ---
Date of Service For August 07, 2021 Discharge summary was done on 08/14/2021 Admission HPI Per Admitting Provider This is a 55-year-old female who has significant past medical history of insulin-dependent T2DM, end-stage renal disease on hemodialysis Wednesday, , Wednesday, diabetic neuropathy, HTN, HLD, hyperparathyroidism, anemia of renal disease, history of MRSA bacteremia, metastatic neuroendocrine carcinoma, chronic left foot wound who presents to ED due to worsening of wound for the past 2 weeks. Patient follows [facility] wound clinic. Notes were reviewed from wound clinic. She was last seen today. Patient reports over the last 2 days noticing a very dramatic change in the left wound with worsening. She had been receiving IV Dalvance. She further complains of feeling very fatigued, ill feeling and difficulty walking. Per report field servicer felt foot clearly was much worse than last week, more edematous and erythematous. Patient's wound care physician referred her to ER for admission, IV antibiotics and surgical I&D. She did have an outpatient MRI done on 07/25 and report was obtained about outside facility. MRI shows findings strongly concerning for osteomyelitis at the base of the fifth metatarsal as well as high signal noted within the cuboid and the proximal aspect of the third and fourth metatarsals likely representing stress marrow edema. Wound cultures from outpatient setting on 05/14 grew Pseudomonas and on 07/09 grew moderate strep viridans and MRSA. She complains of feeling, "In a fog," and feeling unwell. She complains of chills, nausea, vomiting, L foot pain, increased redness to L foot and overall poor appetite for the past 1.5 weeks. She denies documented fever, sweats, chest pain, sob, cough, URI sx, hemoptysis, abd pain, diarrhea. She does not make urine. Admission Exam Per Admitting Provider Physical Exam: Constitutional: WD/WN, vitals as above, NAD, sitting up in bed, pleasant, conversing easily Head: Normocephalic, Atraumatic Eyes: PERRL, conjunctivae normal, anicteric sclerae ENMT: external ear and nose normal, oropharynx normal Neck: trachea midline, no thyromegaly normal visual inspection Respiratory: normal respiratory effort, lungs clear to auscultation, no wheeze, rales, rhonchi. Normal insp/exp effort, no accessory muscle use Cardiovascular: RRR, 1/6 FAINA noted RUSB, no edema Vessels: no JVD or carotid bruit Chest:R ACW Port ACCESS, LUE AV FISTULA. normal inspection of chest Abdomen: normal bowel sounds, soft, nontender, no hepatosplenomegaly Musculoskeletal: no cyanosis or clubbing, extremities motor strength 5/5 Skin: Large open wound to the lateral aspect of L mid foot, No radha drainage, surrounding erythema to dorsal aspect of L foot, along with pretibial edema. Diminished L pedal puse. no rashes, warm and dry normal turgor Neurologic: PERRL, EOMI, accommodation nl, no face palsy, no dysarthria CN's II-XI intact bilaterally and moves all extremities Psychiatric: A+Ox3, euthymic affect Lymphatic: no cervical or axillary lymphadenopathy : deferred Principal Diagnosis Osteomyelitis of left foot, end-stage renal disease on hemodialysis, type 2 diabetes on insulin, neuroendocrine carcinoma with metastatic disease Discharge Exam Lying in bed comfortably Constitutional well developed, well nourished, + ill appearing and + obese Eyes PERRL, conjunctivae normal, anicteric sclerae ENMT external ear and nose normal, oropharynx normal Neck trachea midline, no thyromegaly Respiratory no respiratory distress Auscultation: lungs clear to auscultation bilaterally; no crackles Cardiovascular Rate/Rhythm: regular rate and regular rhythm; not tachycardic Heart Sounds: normal S1, normal S2 and + murmur (2/6 ESM over precordium) Gastrointestinal (Abdomen) Inspection/Auscultation: normal bowel sounds; abdomen not distended Percussion/Palpation: abdomen soft; abdomen nontender Neurologic normal touch/pain/proprioception Discharge Data Allergies Allergy/AdvReac Type Severity Reaction Status Date / Time Iodinated Contrast Media AdvReac Severe Patient Verified 07/30/21 15:21 has kidney failure omeprazole AdvReac Severe Increased Verified 07/30/21 15:21 her acid reflux Consultations 07/30/21 14:43 Consult Nephrology Routine Consult Orthopedic Surgery Routine 07/30/21 14:50 ED Decision to Admit Stat 07/31/21 10:53 Consult Infectious Diseases Routine Procedures Performed Operation Date: 08/01/21 09:10 Actual Procedures p Left Diabetic Foot Ulcer Incision and Drainage x2 dorsal foot, 1x lateral foot, tenosynovectomy of peroneus longus, tenosynovectomy of extensor digitorum, exostectomy 4th, 5th and cuboid bone (Left) - Ab Pat DO Ordered Studies 07/30/21 15:33 MR foot LT w/o con Routine US arterial duplex LE LT Routine Hospital Course (1) Osteomyelitis of left foot: (2) Ulcer of left midfoot: (3) Insulin dependent diabetes mellitus: (4) ESRD (end stage renal disease): This is a 55-year-old female who has significant past medical history of insulin-dependent T2DM, end-stage renal disease on hemodialysis Wednesday, , Wednesday, diabetic neuropathy, HTN, HLD, hyperparathyroidism, anemia of renal disease, history of MRSA bacteremia, metastatic neuroendocrine carcinoma, chronic left foot wound who presents to ED due to worsening of wound for the past 2 weeks. Left foot osteomyelitis Ulcer of left midfoot Patient given ER for worsening left foot wound MRI of left foot showed large skin wound/ulceration within the plantar lateral aspect of the midfoot which measures approximately 5 cm in length. Deep to the skin wound there is cortical destruction at the base of the fifth metatarsal and cuboid bone consistent with an osteomyelitis. There are additional areas of abnormal marrow signal within the base of the second through fourth metatarsals as well as the middle and lateral cuneiform bones. This is also suspicious for osteomyelitis. Scattered areas of soft tissue gas and small loculated fluid collections dorsal to the third and fourth tarsometatarsal joints. These likely represent small abscesses. Arterial duplex: atherosclerotic plaque with evidence of peripheral vascular disease as above. Mildly elevated velocities in the popliteal artery suggests at least mild stenosis. Elevated Procalcitonin at 6.2 and CRP 26.3 Wound cx grew gram negative bacilli Ortho on board S/p day #4 Left Diabetic Foot Ulcer Incision and Drainage x2 dorsal foot, 1x lateral foot, tenosynovectomy of peroneus longus, tenosynovectomy of extensor digitorum, exostectomy 4th, 5th and cuboid bone by ortho Continue nonweightbearing to left lower extremity Continue Empiric IV vancomycin and cefepime -recent wound cultures grew Pseudo monas and MRSA Wound cx from the I&D on 08/01 grew gram negative bacilli ID on board and recommended IV Vanco + Cefepime + PO Metronidazole Sent tigetext to ID dr. Antunez about final abx regimen and duration, waiting for reply All packing was removed from each site as per ortho Case discussed with ID dr. Antunez that recommended Cefepime IV during dialysis to be given during HD Will d/c Vanco and Metronidazole She remains medically stable to be discharged Intravenous cefepime 2 g following each dialysis that will be on Wednesday, and Wednesday and will be continued until 09/18/2021 We will check weekly CBC and CMP while on intravenous cefepime Should be discharged home this afternoon-everything has been set up by hospice case manager to have the antibiotic as an outpatient Insulin-dependent T2DM Most recent hemoglobin A1c 5.1 NPH, NovoLog per protocol Pharmacy on board for glycemic management Continue monitor blood sugar End-stage renal disease on hemodialysis Hemodialysis is Wednesday Nephrology on board Next HD is scheduled for Neuroendocrine carcinoma with metastatic disease Chronic pain secondary to cancer, follows palliative care for pain management On methadone and hydromorphone s/p XRT, follows Dr. Hannon Anemia of renal disease Hemoglobin 7.3 today S/P 1 units PRBC last She lost about 200cc of blood during HD Will plan to transfuse 1 unit prbc slowly today Continue monitor hemoglobin DVT ppx: Heparin SQ on hold due to recent surgery On SCD SCD FULL CODE Disposition Will be discharged home this afternoon Total Time Total Time Spent Total Time Spent (In Minutes): 35 minutes Discharge Plan Discharge Items Patient Disposition: Home - Home Health Services Reason For Visit: L FOOT OSTEOMYELITIS Discharge Diagnosis: Osteomyelitis of left foot, end-stage renal disease on hemodialysis, type 2 diabetes on insulin, neuroendocrine carcinoma with metastatic disease Condition on Discharge: Fair Activity: Resume your previous activity Non-emergency contact: Primary Care Provider Call non-emergency contact if: you have any medication questions and your symptoms worsen Follow-up/Referrals: Edy Eddy MD [Primary Care Provider] - (Date & Time 08/12/2021 8:40 AM Provider Edy Eddy MD Department [facility] ) Diet: Dialysis Renal and Low Sodium (2gm) Addtl Attending Provider Instructions: Please take precautions to avoid fall Finish the course of antibiotic as advised Keep appointments with your healthcare providers Addtl Water Service Dispatcher Provider Instructions: From Ortho: Wound VAC placed on left foot wound. Continue IV antibiotics. The patient is to be nonweightbearing on the left lower extremity at all times. Continue elevation of heels off of bed. Patient starting to have breakdown on the left heel. Antibiotics as per hospitalist service/ID team. Discharge planning will need buttermaker helper IV antibx Pending Studies at Discharge: No Stand-Alone Forms: [facility] [employer] Smoking Cessation Medications and DC Order Prescriptions: New Lactinex 1 million cell tablet,chewable 1 tab PO BID Qty: 60 RF: 0 multivitamin with folic acid [Daily-Umer (with folic acid)] 400 mcg Tablet 1 tab PO QAM 30 Days Qty: 30 RF: 0 Continued docusate sodium [Colace] 100 mg capsule 100 mg PO DAILY RF: 0 levothyroxine 125 mcg tablet 125 mcg PO DAILYBB RF: 0 insulin aspart U-100 [Novolog U-100 Insulin aspart] 100 unit/mL Solution 1 sliding scale dose SUBCUT USEASDIRECTD RF: 0 hydromorphone 4 mg tablet 8 mg PO Q3H PRN (Reason: Pain) RF: 0 methadone 5 mg Tablet 10 mg PO TID RF: 0 Humulin N NPH Insulin KwikPen 100 unit/mL (3 mL) insulin pen 30 unit SUBCUT BID RF: 0 sevelamer carbonate [Renvela] 800 mg tablet 1,600 mg PO TIDM RF: 0 gabapentin 100 mg capsule 200 mg PO TID RF: 0 Discharge Orders: Discharge Order (Routine); Ordered 08/07/21 Ordered By: Hugo Parmar Admission Data Admit Date/Time: 07/30/21 14:43 Attending Provider: Hugo Parmar Admit Provider: Hugo Parmar Primary Care Provider: Edy Eddy Other Providers: Scar Carter [facility] ; Douglas Hu ; Ab Pat Manabendra ; Guille Abbott ; Jocelynn Flores ; Jorge Arriola I. ; Teja Ayers II ; Sherine Oakes ; Eliceo Lilly ; Vasu Antunez Other Interventions: Discharge Summary Assessment (RN) Last Done: 08/07/21 15:31
== END 2021-08-07 18:06 | disposition home health service (06) | DRG 623 ==
LOC: ED 12:17 → SUATTDRO 14:43 → 2N 14:43 → 3E 08-04 22:35

== ENCOUNTER 2021-09-17 17:38 | Inpatient (IN) ==
[2021-09-17] MEDS ORDERED: SODIUM CHLORIDE 0.9% 1000ML 1,000 ML IV SCH (18:00)
[2021-09-17 19:08] LABS: Hematocrit (blood only) 20.2 % (37-47); Hemoglobin 5.9 g/dL (12.0-16.0); Mean Corpuscular Hemoglobin 29.1 pg (25-34); Mean Corpuscular Hgb Conc 29.2 g/dL (32-36); Mean Corpuscular Volume 99.5 fL (80-100); Mean Platelet Volume 9.1 fL (7.4-10.4); Platelet Count 286 K/uL (130-400); RDW Coefficient of Variation 18.2 % (11.5-14.5); RDW Standard Deviation 64.6 fL (36.4-46.3); Red Blood Count 2.03 M/uL (4.2-5.4); White Blood Count 5.28 K/uL (4.8-10.8)
[2021-09-17] MEDS ORDERED: SODIUM CHLORIDE 0.9% 250 ML IV PRN (19:12)
[2021-09-17 19:17] LABS: INR 1.2 (0.9-1.1); Partial Thromboplastin Ratio 1.2; Partial Thromboplastin Time 32.8 Seconds (21.0-31.0); Prothrombin Time 12.2 Seconds (9.0-12.0)
[2021-09-17 19:35] LABS: Alanine Aminotransferase 7 U/L (7-52); Albumin Level 2.4 gm/dl (3.4-5.0); Alkaline Phosphatase 55 U/L (34-104); Anion Gap 8 (3-11); Aspartate Aminotransferase 9 U/L (13-39); BUN Creatinine Ratio 8.5 (10-20); Bilirubin Direct 0.1 mg/dl (0-0.2); Bilirubin,Total 0.4 mg/dl (0.2-1.0); Blood Urea Nitrogen 36 mg/dl (6-23); Calcium 8.7 mg/dl (8.5-10.1); Carbon Dioxide 27 mmol/L (21-32); Chloride 98 mmol/L (98-107); Est GFR (African American) 12.8 ml/min; Est GFR (Non-African American) 11.1 ml/min; Glucose 244 mg/dl (70-99(Fasting)); Lipase 16 U/L (11-82); Potassium 4.1 mmol/L (3.5-5.1); Sodium 133 mmol/L (136-145); Total Protein 7.4 gm/dl (6.0-8.3)
[2021-09-17 19:36] LABS: Anisocytosis Present; Basophils # (auto) 0.02 K/uL (0-0.2); Basophils % (auto) 0.4 %; Eosinophils # (auto) 0.08 K/uL (0-0.5); Eosinophils % (auto) 1.5 %; Hypochromasia Present; Immature Granulocytes # (auto) 0.02 K/uL (0.00-0.02); Immature Granulocytes % (auto) 0.4 %; Lymphocytes # (auto) 1.07 K/uL (1.2-3.4); Lymphocytes % (auto) 20.3 %; Monocytes # (auto) 0.46 K/uL (0.11-0.59); Monocytes % (auto) 8.7 %; Neutrophils # (auto) 3.63 K/uL (1.4-6.5); Neutrophils % (auto) 68.7 %; Polychromasia 1+
--- NOTE | 2021-09-17 21:27 | History and Physical Report ---
DATE OF ADMISSION: 09/17/2021. CHIEF COMPLAINT: Anemia. HISTORY OF PRESENT ILLNESS: This is a 55-year-old female with past medical history significant for type 2 diabetes, end-stage renal disease, on hemodialysis, diabetic polyneuropathy, hyperlipidemia, diabetic retinopathy, history of hyperparathyroidism, multiple thyroid nodules, hypertension, subacute osteomyelitis of the left foot, on wound VAC and also the patient is getting antibiotics during dialysis, anemia of chronic renal failure, neuroendocrine cancer, status post radiation currently, follows with hem/onc, history of partial amputation of toe of the left foot, presents with anemia. The patient says during her dialysis, labs showed hemoglobin of 6 and she was advised to come to the hospital. Here, her hemoglobin is 5.9. The patient says there is no hematuria, no blood in stools and Hemoccult is negative in the ER. Because of infection of the left foot and osteomyelitis, she is currently in wheelchair, not ambulating much,denies short of breath, no chest pain. She is feeling tired. No headache, no blurred visions, no earache, no runny nose, no sore throat. Appetite is okay. No difficulty swallowing. No nausea, no abdominal pain. Normal bowel and bladder movements. Currently, resting comfortably and hemodynamically stable. ALLERGIES: IODINATED CONTRAST MEDIA, OMEPRAZOLE. PAST MEDICAL HISTORY: As mentioned above. 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 MEDICATIONS: The patient is on B complex 1 tablet p.o. daily, Colace 100 mg p.o. daily p.r.n., hydromorphone 8 mg p.o. q.3 hours p.r.n., insulin sliding scale, insulin NPH 13 units b.i.d., lactobacillus 1 tablet p.o. b.i.d., levothyroxine 125 mcg p.o. daily, methadone 10 mg p.o. b.i.d., Renvela 1600 mg p.o. t.i.d. with meals. FAMILY HISTORY: Significant for father has diabetes, hypertension; mother has diabetes; paternal grandfather had CHF. SOCIAL HISTORY: , no smoking, alcohol rare, no drug use. REVIEW OF SYSTEMS: As per HPI. Rest of review of systems is negative. PHYSICAL EXAMINATION: GENERAL: The patient is of moderate built, not in acute distress. VITAL SIGNS: Temperature 36.6, pulse 99, respiratory rate 16, blood pressure 153/77, oxygen 99% on room air. HEENT: Pupils equal, round and reactive to light. Oral mucosa moist. NECK: No JVD, no neck masses. CARDIOVASCULAR: S1 and S2 heard. Regular rate and rhythm. No murmur, no gallop. RESPIRATORY SYSTEM: Normal AP diameter. No accessory muscle use. No wheezing, no crackles. ABDOMEN: Soft, bowel sounds present, nontender, no distention. CENTRAL NERVOUS SYSTEM: Cranial nerves II through XII are grossly intact, nonfocal. EXTREMITIES: Left lower extremity is in brace. Edema in the right lower extremity is seen, no erythema seen. LABORATORY DATA: WBC 5.2, hemoglobin 5.9, hematocrit 20.2, platelets 286. PT 12.2, INR 1.2, APTT 32.8. Sodium 133, potassium 4.1, chloride 98, bicarbonate 27, BUN 36, creatinine 4.2, serum glucose 244, calcium 8.7, total bilirubin 0.4, direct bilirubin 0.1, AST 9, ALT 7, alkaline phosphatase 55, lipase 16. ELECTROCARDIOGRAM: Sinus tachycardia at a rate of 107, left ventricular hypertrophy with repolarization abnormality. ASSESSMENT AND PLAN: This is a 55-year-old female who is getting admitted for anemia. 1. Anemia: Anemia of chronic kidney disease. Hemoglobin 5.9. Getting 1 unit of packed red blood cell transfusion in the Emergency Room. There are no obvious signs of bleeding. Hemoccult is negative. We will consult nephrology in the a.m.If needed more transfusion can be done during dialysis in am. 2. End-stage renal disease: On hemodialysis. We will consult nephrology in the a.m. Due for dialysis tomorrow. 3. Diabetes: Continue home insulin NPH, place on insulin sliding scale. Follow blood sugars. 4. Left foot osteomyelitis: Currently, the patient has a wound VAC, follows with wound care. Currently, getting antibiotics with dialysis as per the patient. Needs followup.As per ID in Epic getting iv cefepime 2gm during dialysis. EOT 09/18/21. 5. Hypothyroidism: Continue Synthroid. 6. Chronic pain: Continue home pain medications. 7. History of metastatic neuroendocrine cancer, status post radiation treatment: Following with hematology/oncology. 8. Deep venous thrombosis prophylaxis: Could not give heparin subcutaneously because of her anemia, maybe place on heparin subcutaneously when hb stable. Place sequential compression devices for now. DISPOSITION: Closely monitor in the medical floor. PT, OT prior to discharge. Social service to help with discharge planning. Level 1, full code. Job ID: [id number] [facility]
--- NOTE | 2021-09-17 21:57 | Emergency Department Note ---
History of Present Illness General Chief Complaint: Referred by Doctor Stated Complaint: DR BANDA, LOW HEMOGLOBIN COUNT (6.5) Time Seen by Provider: 09/17/21 17:50 History of Present Illness Provider Complaint: + abnormal lab Associated symptoms: no fever, no chills, no chest pain, no shortness of breath, no rash or no abdominal pain HPI narrative: Patient is end-stage renal disease on hemodialysis Wednesday with [facility] nephrology. Patient reports her PCP sent her in because her hemoglobin was 6.5. Patient denies any melena or hematochezia. No hematuria dysuria. No vaginal bleeding. Home Medications Medication Instructions Recorded Confirmed Type hydromorphone 4 mg tablet 8 mg PO Q3H PRN 03/15/21 09/17/21 History insulin aspart U-100 100 unit/mL 1 sliding scale dose SUBCUT 03/15/21 09/17/21 History subcutaneous solution (Novolog USEASDIRECTD U-100 Insulin aspart) levothyroxine 125 mcg tablet 125 mcg PO DAILYBB 03/15/21 09/17/21 History methadone 5 mg tablet 10 mg PO BID 03/15/21 09/17/21 History docusate sodium 100 mg capsule 100 mg PO DAILY PRN 06/11/21 09/17/21 History (Colace) insulin NPH isoph U-100 human 100 30 unit SUBCUT BID ml 06/11/21 09/17/21 History unit/mL (3 mL) subcutaneous pen (Humulin N NPH U-100 Insulin KwikPen) sevelamer carbonate 800 mg tablet 1,600 mg PO TIDM 07/30/21 09/17/21 History (Renvela) Lactobacillus acidoph-L.bulgaricus 1 tab PO BID #60 tab 08/07/21 09/17/21 Rx 1 million cell chewable tablet (Lactinex) vitamin B complex-vitamin C-folic 1 tab PO DAILY 09/11/21 09/17/21 History acid 0.8 mg tablet (Ira-Umer) Allergies Allergy/AdvReac Type Severity Reaction Status Date / Time Iodinated Contrast Media AdvReac Severe Patient Verified 09/17/21 19:27 has kidney failure omeprazole AdvReac Severe Increased Verified 09/17/21 19:27 her acid reflux Past Med/Surg History Medical History Acid reflux Amputation of right great toe Anemia Diabetes Diabetic retinopathy ESRD (end stage renal disease) On dialysis H/O vocal cord paralysis Right side Hypertension MRSA bacteremia 2018; unclear if vertebral or R diabetic foot wound source Neuroendocrine tumor (12/05/19) Pneumonia (10/05/13) Retinal hemorrhage, right eye Sepsis Shortness of breath (10/05/13) Thyroid cancer Thyroid nodule Surgical History AVF (arteriovenous fistula) endovascular L; created 09/2020 H/O thyroidectomy Partial thyroidectomy History of cholecystectomy History of surgery 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 Brother No problems noted. Sister Dialysis patient Kidney disease Daughter No problems noted. Daughter Diabetes Social History Smoking Status: Never smoker Second Hand Exposure: No; Hx Alcohol Use: No Hx Substance Use: No Preferred Language: Ukrainian Communication Ability: Effective Visual Impairment: No Limitations Hearing Ability: Normal Publications Distribution Clerk Required: No Beliefs That Will Affect Care: None marital status: Current Living Situation: Spouse current occupational status: disabled How many Children do You have: 2 Feels Safe at Home: Yes caffeine: No during the past year weight has: remained stable Assistive Devices: Walker Review of Systems A total of 10 systems reviewed and were otherwise negative Physical Exam Vital Signs: Vital Signs - 24 hr 09/17/21 17:42 09/17/21 20:52 09/17/21 21:10 Temperature 36.6 C 37.7 C H 37.4 C Temperature Source Temporal Artery Sc an Oral Oral Pulse Rate 99 H 105 H 107 H Respiratory Rate 16 15 13 Blood Pressure 153/77 H 155/72 H 135/72 Blood Pressure Kathya n 102 99 93 Blood Pressure Pos ition Sitting Sitting Sitting Pulse Oximetry 99 97 93 Oxygen Delivery Me thod Room Air Oxygen Flow Rate Sepsis Recent Feve r Within 48 Hours No Sepsis New/Unexpla ined Change in Men phil Status No Sepsis Action Take n by Nursing No Action Required 09/17/21 21:25 Temperature 37.0 C Temperature Source Oral Pulse Rate 99 H Respiratory Rate 13 Blood Pressure 143/65 H Blood Pressure Kathya n 91 Blood Pressure Pos ition Pulse Oximetry 98 Oxygen Delivery Me thod Oxygen Flow Rate 2 Sepsis Recent Feve r Within 48 Hours Sepsis New/Unexpla ined Change in Men phil Status Sepsis Action Take n by Nursing Physical Exam: Physical Exam GENERAL: She is oriented to person, place, and time. She appears well-developed and well-nourished. She does not appear distressed. HENT: Exam performed. -Head: Normocephalic and atraumatic. -Right Ear: External ear normal. No mastoid tenderness. -Left Ear: External ear normal. No mastoid tenderness. -Mouth/Throat: The oropharynx is clear and moist. No trismus in the jaw. No dental abscesses or uvula swelling. No oropharyngeal exudate or tonsillar abs cesses. EYES: Conjunctivae and EOM are normal. Pupils are equal, round, and reactive to light. Right eye exhibits no discharge. Left eye exhibits no discharge. No scleral icterus. NECK: Normal range of motion. Neck supple. No JVD present. No spinous process tenderness present. No carotid bruit present. No rigidity. No tracheal deviation and normal range of motion present. No Brudzinski's sign and no Kernig's sign noted. CV: Normal rate, regular rhythm, normal heart sounds and intact distal pulses. There is no peripheral edema. Palpable radial pulses bue. PULM/CHEST: Effort normal and breath sounds normal. No respiratory distress. No stridor. She has no wheezes. She has no rales. -Chest Wall: She exhibits no tenderness. ABD: The abdomen is soft. Bowel sounds are normal. She has no distension. No mass is present. There is no tenderness. There is no rebound, no guarding, no Miles's sign and no tenderness at McBurney's point. Rovsig negative Rectal: Performed with female nursing road cutter at bedside. No bright red blood per rectum. hemmocult negative stage III decubitus coccygeal area. MUSC/SKEL: Left lower extremity in boot with wound VAC. Left upper extremity AV fistula with palpable thrill LYMPH: No cervical adenopathy. NEURO: She is alert and oriented to person, place, and time. She has normal strength. No cranial nerve deficit or sensory deficit. Coordination and gait normal. GCS eye subscore is 4. GCS verbal subscore is 5. GCS motor subscore is 6. Cerebellar tests wnl. SKIN: Skin is warm and dry. She is not diaphoretic. PSYCH: She has a normal mood and affect. Behavior is normal. Judgment and thought content normal. Course Course 1749: The patient was evaluated in room B5. A complete history and physical exam was performed Cardiac monitoring: An order was placed for continuous cardiac monitoring. The monitor shows a rate of 90 with sinus rhythm 1914: Vital signs stable. Hemoglobin 5.9. Patient be transfused 2 units packed red blood cells [facility] Orourke notified Administered Medications Sodium Chloride (Nss 1000ml) 1,000 mls @ 125 mls/hr IV .Q8H KIRT Stop: 10/17/21 17:59 Last Admin: 09/17/21 18:26 Dose: Not Given Documented by: [id number] Medical Decision Making Laboratory Data Result diagrams: 09/17/21 18:56 09/17/21 18:56 Lab Results 09/17/21 09/17/21 09/17/21 Range/Units 18:56 18:56 18:56 WBC 5.28 (4.8-10.8) K/uL RBC 2.03 L (4.2-5.4) M/uL Hgb 5.9 L* (12.0-16.0) g/dL Hct 20.2 L* (37-47) % MCV 99.5 (80-100) fL MCH 29.1 (25-34) pg MCHC 29.2 L (32-36) g/dL RDW Std Deviation 64.6 H (36.4-46.3) fL RDW Coeff of Padmini 18.2 H (11.5-14.5) % Plt Count 286 (130-400) K/uL MPV 9.1 (7.4-10.4) fL Immature Gran % (Auto) 0.4 % Neut % (Auto) 68.7 % Lymph % (Auto) 20.3 % [place] % (Auto) 8.7 % Eos % (Auto) 1.5 % Baso % (Auto) 0.4 % Neut # (Auto) 3.63 (1.4-6.5) K/uL Lymph # (Auto) 1.07 L (1.2-3.4) K/uL [place] # (Auto) 0.46 (0.11-0.59) K/uL Eos # (Auto) 0.08 (0-0.5) K/uL Baso # (Auto) 0.02 (0-0.2) K/uL Immature Gran # (Auto) 0.02 (0.00-0.02) K/uL Polychromasia 1+ Hypochromasia Present Anisocytosis Present PT (9.0-12.0) Seconds INR (0.9-1.1) APTT (21.0-31.0) Seconds PTT Ratio Sodium 133 L (136-145) mmol/L Potassium 4.1 (3.5-5.1) mmol/L Chloride 98 (98-107) mmol/L Carbon Dioxide 27 (21-32) mmol/L Anion Gap 8 (3-11) BUN 36 H (6-23) mg/dl Creatinine 4.26 H (0.6-1.2) mg/dl Est Cr Clr Drug Dosing Not Reportable Est GFR ( Amer) 12.8 ml/min Est GFR (Non-Af Amer) 11.1 ml/min BUN/Creatinine Ratio 8.5 L (10-20) Glucose 244 H (70-99(Fasting)) mg/dl Calcium 8.7 (8.5-10.1) mg/dl Total Bilirubin 0.4 (0.2-1.0) mg/dl Direct Bilirubin 0.1 (0-0.2) mg/dl AST 9 L (13-39) U/L ALT 7 (7-52) U/L Alkaline Phosphatase 55 (34-104) U/L Total Protein 7.4 (6.0-8.3) gm/dl Albumin 2.4 L (3.4-5.0) gm/dl Lipase 16 (11-82) U/L SARS-CoV-2, RNA, NAAT (NEGATIVE) Blood Type O Positive Antibody Screen NEGATIVE Crossmatch See Detail 09/17/21 09/17/21 Range/Units 18:56 20:59 WBC (4.8-10.8) K/uL RBC (4.2-5.4) M/uL Hgb (12.0-16.0) g/dL Hct (37-47) % MCV (80-100) fL MCH (25-34) pg MCHC (32-36) g/dL RDW Std Deviation (36.4-46.3) fL RDW Coeff of Padmini (11.5-14.5) % Plt Count (130-400) K/uL MPV (7.4-10.4) fL Immature Gran % (Auto) % Neut % (Auto) % Lymph % (Auto) % [place] % (Auto) % Eos % (Auto) % Baso % (Auto) % Neut # (Auto) (1.4-6.5) K/uL Lymph # (Auto) (1.2-3.4) K/uL [place] # (Auto) (0.11-0.59) K/uL Eos # (Auto) (0-0.5) K/uL Baso # (Auto) (0-0.2) K/uL Immature Gran # (Auto) (0.00-0.02) K/uL Polychromasia Hypochromasia Anisocytosis PT 12.2 H (9.0-12.0) Seconds INR 1.2 H (0.9-1.1) APTT 32.8 H (21.0-31.0) Seconds PTT Ratio 1.2 Sodium (136-145) mmol/L Potassium (3.5-5.1) mmol/L Chloride (98-107) mmol/L Carbon Dioxide (21-32) mmol/L Anion Gap (3-11) BUN (6-23) mg/dl Creatinine (0.6-1.2) mg/dl Est Cr Clr Drug Dosing Est GFR ( Amer) ml/min Est GFR (Non-Af Amer) ml/min BUN/Creatinine Ratio (10-20) Glucose (70-99(Fasting)) mg/dl Calcium (8.5-10.1) mg/dl Total Bilirubin (0.2-1.0) mg/dl Direct Bilirubin (0-0.2) mg/dl AST (13-39) U/L ALT (7-52) U/L Alkaline Phosphatase (34-104) U/L Total Protein (6.0-8.3) gm/dl Albumin (3.4-5.0) gm/dl Lipase (11-82) U/L SARS-CoV-2, RNA, NAAT NEGATIVE (NEGATIVE) Blood Type Antibody Screen Crossmatch ECG Data Additional Comments: Sinus rhythm with a rate of 107. [place] QRS and QTc intervals within normal limits. Mild ST depression in leads II, III, aVF, V4 V5 V6. T wave inversion in leads aVL. No ST elevation. MDM Narrative Vital signs stable. Hemoglobin 5.9. Patient be transfused 2 units packed red blood cells and [facility]. Orourke notified Impression & Plan Anemia Critical Care Time Critical Care Time: Yes Total Critical Care Time: 54 I have personally spent greater than 54 minutes of critical care time in the direct management of this patient. This includes bedside care, interpretation of diagnostic studies, and testing, discussion with consultants, patient, and family members, and other required patient management activities. This 54 minutes is in excess of all separately billable procedures. Discharge Plan Visit Data Chief Complaint: Referred by Doctor Stated Complaint: DR BANDA, LOW HEMOGLOBIN COUNT (6.5) Discharge Problem: Anemia Patient Disposition: Admitted As Inpatient Forms Stand Alone Forms: My [facility] Prescriptions Prescriptions: No Action docusate sodium [Colace] 100 mg capsule 100 mg PO DAILY PRN (Reason: Constipation) RF: 0 levothyroxine 125 mcg tablet 125 mcg PO DAILYBB RF: 0 insulin aspart U-100 [Novolog U-100 Insulin aspart] 100 unit/mL Solution 1 sliding scale dose SUBCUT USEASDIRECTD RF: 0 hydromorphone 4 mg tablet 8 mg PO Q3H PRN (Reason: Pain) RF: 0 methadone 5 mg Tablet 10 mg PO BID RF: 0 Humulin N NPH Insulin KwikPen 100 unit/mL (3 mL) insulin pen 30 unit SUBCUT BID RF: 0 sevelamer carbonate [Renvela] 800 mg tablet 1,600 mg PO TIDM RF: 0 Lactinex 1 million cell tablet,chewable 1 tab PO BID Qty: 60 RF: 0 Ira-Umer 0.8 mg tablet 1 tab PO DAILY RF: 0 Referrals Referrals: Edy Eddy MD [Primary Care Provider] -
[2021-09-17] MEDS ORDERED: DOCUSATE SODIUM 100 MG CAP PO PRN (22:45)
[2021-09-17] MEDS ORDERED: POLYETHYLENE (MIRALAX) 17 GM PACK PO PRN (22:45)
[2021-09-17] MEDS ORDERED: ACETAMINOPHEN 325 MG TAB PO PRN (22:45)
[2021-09-17] MEDS: METHADONE HCL 10 MG TAB PO SCH (23:38)
[2021-09-17] MEDS: ADVANCED PROBIOTIC 1250 MG CAPSULE PO SCH (23:39)
[2021-09-17] MEDS: INSULIN ASPART PER UNIT SC SCH (23:39)
[2021-09-17] MEDS: INSULIN HUMAN NPH SQ SCH (23:40)
[2021-09-18 05:52] LABS: Basophils # (auto) 0.02 K/uL (0-0.2); Basophils % (auto) 0.3 %; Eosinophils # (auto) 0.09 K/uL (0-0.5); Eosinophils % (auto) 1.5 %; Hematocrit (blood only) 21.8 % (37-47); Hemoglobin 6.6 g/dL (12.0-16.0); Immature Granulocytes # (auto) 0.03 K/uL (0.00-0.02); Immature Granulocytes % (auto) 0.5 %; Lymphocytes # (auto) 1.36 K/uL (1.2-3.4); Lymphocytes % (auto) 22.5 %; Mean Corpuscular Hemoglobin 29.5 pg (25-34); Mean Corpuscular Hgb Conc 30.3 g/dL (32-36); Mean Corpuscular Volume 97.3 fL (80-100); Mean Platelet Volume 9.4 fL (7.4-10.4); Monocytes # (auto) 0.44 K/uL (0.11-0.59); Monocytes % (auto) 7.3 %; Neutrophils # (auto) 4.11 K/uL (1.4-6.5); Neutrophils % (auto) 67.9 %; Platelet Count 257 K/uL (130-400); RDW Standard Deviation 62.3 fL (36.4-46.3); Red Blood Count 2.24 M/uL (4.2-5.4); White Blood Count 6.05 K/uL (4.8-10.8)
[2021-09-18 06:02] LABS: RBC Morphology Unremarkable
[2021-09-18 06:13] LABS: Calcium 8.9 mg/dl (8.5-10.1); Magnesium 2.1 mg/dl (1.7-2.4); Potassium 4.2 mmol/L (3.5-5.1)
[2021-09-18 06:29] LABS: Creatinine Clr Calc Pharmacy 14.9 ml/min; Est GFR (African American) 10.6 ml/min; Est GFR (Non-African American) 9.2 ml/min
[2021-09-18] MEDS ORDERED: LEVOTHYROXINE SODIUM 125 MCG TABLET PO SCH (06:30)
--- NOTE | 2021-09-18 07:59 | Nephrology Consultation ---
Date of Consultation September 18, 2021 Assessment & Plan (1) ESRD (end stage renal disease): I was delayed in evaluating the patient today d/t other clinical responsibilities; I did follow her care peripherally and discussed her care w/ attending. 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 Other PMH includes Jul 2017 admission [facility] for MRSA bacteremia unclear (per Inf Dzs) if from vertebral OM versus R diabetic foot wound, [facility] fall 2020 for septic shock w/ respiratory failure needing intubation and pressor requirement from R gluteal abscess and gas gangrene needing emergent debridement, Class 1 obesity, significant chronic pain issues from spinal mets managed by palliative care; she has lytic lesions in her C spine, T spine, L spine. She has known pancreatic lesion, L renal lesion unrelated to NET; also remote hx of partial thyroidectomy for microcarcinoma. Her NET was treated w/ XRT, no chemo. Follows w/ Dr Hannon and with me. She has a L AC endovascular AVF created 09/2020 though not wll functioning; we use TDC. She dialyzes at [facility] under my care. She receives maximal anemia therapy at dialysis w/ weekly hgb checks per routine. For the past month despite this therapy her hgb has been challenging to maintain though no source of bleeding found > highest hgb at dialysis was 8.2. She had one reading of 6.8 late last month for which she had an OP transfusion; she had hgb 6.5 on 09/16, prompting me to send her to ER for eval. Hgb week prior on 09/09 was 7.1. Allergies Allergy/AdvReac Type Severity Reaction Status Date / Time Iodinated Contrast Media AdvReac Severe Patient Verified 09/17/21 19:27 has kidney failure omeprazole AdvReac Severe Increased Verified 09/17/21 19:27 her acid reflux Home Medications Medication Instructions Recorded Confirmed Type hydromorphone 4 mg tablet 8 mg PO Q3H PRN 03/15/21 09/17/21 History insulin aspart U-100 100 unit/mL 1 sliding scale dose SUBCUT 03/15/21 09/17/21 History subcutaneous solution (Novolog USEASDIRECTD U-100 Insulin aspart) levothyroxine 125 mcg tablet 125 mcg PO DAILYBB 03/15/21 09/17/21 History methadone 5 mg tablet 10 mg PO BID 03/15/21 09/17/21 History docusate sodium 100 mg capsule 100 mg PO DAILY PRN 06/11/21 09/17/21 History (Colace) insulin NPH isoph U-100 human 100 30 unit SUBCUT BID ml 06/11/21 09/17/21 History unit/mL (3 mL) subcutaneous pen (Humulin N NPH U-100 Insulin KwikPen) sevelamer carbonate 800 mg tablet 1,600 mg PO TIDM 07/30/21 09/17/21 History (Renvela) Lactobacillus acidoph-L.bulgaricus 1 tab PO BID #60 tab 08/07/21 09/17/21 Rx 1 million cell chewable tablet (Lactinex) vitamin B complex-vitamin C-folic 1 tab PO DAILY 09/11/21 09/17/21 History acid 0.8 mg tablet (Ira-Umer) Patient History Medical History Acid reflux Amputation of right great toe Anemia Diabetes Diabetic retinopathy ESRD (end stage renal disease) On dialysis H/O vocal cord paralysis Right side Hypertension MRSA bacteremia 2017; unclear if vertebral or R diabetic foot wound source Neuroendocrine tumor (12/05/19) Pneumonia (10/05/13) Retinal hemorrhage, right eye Sepsis Shortness of breath (10/05/13) Thyroid cancer Thyroid nodule Surgical History AVF (arteriovenous fistula) endovascular L; created 09/2020 H/O thyroidectomy Partial thyroidectomy History of cholecystectomy History of surgery 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 Brother No problems noted. Sister Dialysis patient Kidney disease Daughter No problems noted. Daughter Diabetes Social History Smoking Status: Never smoker Second Hand Exposure: No; Hx Alcohol Use: No Hx Substance Use: No Preferred Language: Mexican Communication Ability: Effective Visual Impairment: No Limitations Hearing Ability: Normal Automatic Screwmaker Required: No Beliefs That Will Affect Care: None marital status: Current Living Situation: Spouse current occupational status: disabled How many Children do You have: 2 Feels Safe at Home: Yes Safety Concerns: Feels Safe At This Time caffeine: No during the past year weight has: remained stable Assistive Devices: Walker and Wheelchair Results & Data ([facility]) Vital Signs (Past 12 Hours) Vital Signs Temp Pulse Pulse Resp BP BP Pulse Ox 09/18/21 07:34 37.1 C 96 H 16 149/75 H 93 09/18/21 00:07 38.0 C H 103 H 16 167/75 H 94 09/17/21 23:47 37.5 C 09/17/21 22:55 37.8 C H 99 H 18 155/78 H 96 09/17/21 22:00 95 H 13 132/60 98 09/17/21 21:55 37.2 C 97 H 20 122/63 98 09/17/21 21:25 37.0 C 99 H 13 143/65 H 98 09/17/21 21:10 37.4 C 107 H 13 135/72 93 09/17/21 20:52 37.7 C H 105 H 15 155/72 H 97 Laboratory Results 09/18/21 05:20 09/18/21 05:20 (1) Anemia Anemia type: unspecified type Qualified Code(s): D64.9 - Anemia, unspecified
[2021-09-18] MEDS ORDERED: SODIUM CHLORIDE 0.9% 1000ML 1,000 ML IV PRN (08:09)
[2021-09-18] MEDS: METHADONE HCL 10 MG TAB PO SCH (08:14)
[2021-09-18] MEDS: ADVANCED PROBIOTIC 1250 MG CAPSULE PO SCH (08:14)
[2021-09-18] MEDS: SEVELAMER HCL 800 MG TABLET PO SCH ×2 (08:14→15:49)
[2021-09-18] MEDS ORDERED: SODIUM CHLORIDE 0.9% 250 ML IV PRN (08:18)
[2021-09-18] MEDS ORDERED: EPOETIN ALFA 20,000 UNITS/ML VIAL IV ONE (09:00)
[2021-09-18] MEDS ORDERED: NEPHROCAPS PO SCH (09:00)
[2021-09-18] MEDS: INSULIN ASPART PER UNIT SC SCH ×2 (09:08→15:49)
[2021-09-18] MEDS: INSULIN HUMAN NPH SQ SCH (09:11)
--- NOTE | 2021-09-18 10:52 | Gastrointestinal Consultation ---
Date of Consultation September 18, 2021 Assessment & Plan (1) Anemia in ESRD (end-stage renal disease): No signs of GI bleeding Patient requests outpt EGD/Colon and will message office to arrange Thank you for consultation and call with questions History of Present Illness Reason for Consultation: anemia- ?GI source- nephro recs GI eval Requesting Physician: Dr. Carlisle Attending Physician: Sanford Carlisle MD History of Present Illness Ms. Carlita Wilkins is a 55 yr old female pt of Dr. Eddy with a hx of insulin requirng DM-2, ESRD, osteomyelitis who was sent to [facility] late yesterday for anemia: Hb 5.6 at dialysis. She received one unit of RBCs since admission and Hb this morning 6.6. She has not had gross GI bleeding, but nephrology requests that we r/o a GI source of anemia. She hasn't previously undergone endoscopy. MCV is normal. Iron, B12 and folate levels are pending. Sent to ER due to outpt labs findings, does admit to being fatigued and mildy short of breath. However, denies any GI changes including pain, melena, hematochezia and or hematemesis. Occult checked in ER and per note was negative. C/O intermittent chronic constipation, however, no other issues related to GI. Examined during dialysis and without current complaint. Allergies Allergy/AdvReac Type Severity Reaction Status Date / Time Iodinated Contrast Media AdvReac Severe Patient Verified 09/17/21 19:27 has kidney failure omeprazole AdvReac Severe Increased Verified 09/17/21 19:27 her acid reflux Home Medications Medication Instructions Recorded Confirmed Type hydromorphone 4 mg tablet 8 mg PO Q3H PRN 03/15/21 09/17/21 History insulin aspart U-100 100 unit/mL 1 sliding scale dose SUBCUT 03/15/21 09/17/21 History subcutaneous solution (Novolog USEASDIRECTD U-100 Insulin aspart) levothyroxine 125 mcg tablet 125 mcg PO DAILYBB 03/15/21 09/17/21 History methadone 5 mg tablet 10 mg PO BID 03/15/21 09/17/21 History docusate sodium 100 mg capsule 100 mg PO DAILY PRN 06/11/21 09/17/21 History (Colace) insulin NPH isoph U-100 human 100 30 unit SUBCUT BID ml 06/11/21 09/17/21 History unit/mL (3 mL) subcutaneous pen (Humulin N NPH U-100 Insulin KwikPen) sevelamer carbonate 800 mg tablet 1,600 mg PO TIDM 07/30/21 09/17/21 History (Renvela) Lactobacillus acidoph-L.bulgaricus 1 tab PO BID #60 tab 08/07/21 09/17/21 Rx 1 million cell chewable tablet (Lactinex) vitamin B complex-vitamin C-folic 1 tab PO DAILY 09/11/21 09/17/21 History acid 0.8 mg tablet (Ira-Umer) Patient History Medical History Acid reflux Amputation of right great toe Anemia Diabetes Diabetic retinopathy ESRD (end stage renal disease) On dialysis H/O vocal cord paralysis Right side Hypertension MRSA bacteremia 2017; unclear if vertebral or R diabetic foot wound source Neuroendocrine tumor (12/05/19) Pneumonia (10/05/13) Retinal hemorrhage, right eye Sepsis Shortness of breath (10/05/13) Thyroid cancer Thyroid nodule Surgical History AVF (arteriovenous fistula) endovascular L; created 09/2020 H/O thyroidectomy Partial thyroidectomy History of cholecystectomy History of surgery 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 Brother No problems noted. Sister Dialysis patient Kidney disease Daughter No problems noted. Daughter Diabetes Social History Smoking Status: Never smoker Second Hand Exposure: No; Hx Alcohol Use: No Hx Substance Use: No Preferred Language: Turkish Communication Ability: Effective Visual Impairment: No Limitations Hearing Ability: Normal Small Arms Repairer Required: No Beliefs That Will Affect Care: None marital status: Current Living Situation: Spouse current occupational status: disabled How many Children do You have: 2 Feels Safe at Home: Yes Safety Concerns: Feels Safe At This Time caffeine: No during the past year weight has: remained stable Assistive Devices: Walker and Wheelchair Review of Systems Review of Systems: negative except for HPI Physical Exam Constitutional: WD/WN, vitals as above ON HD via right subclavian tunneled catheter Cardiovascular: RRR, no murmur, no edema Gastrointestinal (Abdomen): normal bowel sounds, soft, nontender, no hepatosplenomegaly Results & Data ([facility]) Vital Signs (Past 12 Hours) Vital Signs Temp Pulse Pulse Resp BP BP Pulse Ox 09/18/21 07:34 37.1 C 96 H 16 149/75 H 93 09/18/21 00:07 38.0 C H 103 H 16 167/75 H 94 09/17/21 23:47 37.5 C 09/17/21 22:55 37.8 C H 99 H 18 155/78 H 96 Laboratory Results WBC 6, Hb 6.6, Hct 21.8, Plts 257, Na 135, K 4.2, BUN 40, Cr 4.9. T Bili 04, D 0.1, AST 9, ALT 7, A Phos 55
[2021-09-18 11:05] LABS: Folate (Folic Acid) > 22.30 ng/ml (>5.38)
[2021-09-18 11:06] LABS: Vitamin B12 358 pg/ml (180-914)
[2021-09-18 11:49] LABS: Estimated Average Glucose 103 mg/dl; Hemoglobin A1C 5.2 % (4.5-5.6)
[2021-09-18] MEDS ORDERED: CEFEPIME 2,000 MG in SYRINGE 7.5 ML IV ONE (12:00)
[2021-09-18 12:29] VITALS: O2SAT 98
[2021-09-18 12:32] LABS: Iron 35 mcg/dl (35-150); Transferrin < 95 mg/dl (200-360)
[2021-09-18 12:59] LABS: Reticulocyte % 3.2 % (0.5-2.0); Reticulocytes # 0.07 10^6/uL (0.02-0.10)
[2021-09-18 15:20] VITALS: BP 116/69; PULSE 91; TEMP 98.2
[2021-09-18 16:18] LABS: Hemoglobin 8.5 g/dL (12.0-16.0)
--- NOTE | 2021-09-18 16:22 | Discharge Summary ---
Date of Service September 18, 2021 Admission HPI Per Admitting Provider This is a 55-year-old female with past medical history significant for type 2 diabetes, end-stage renal disease, on hemodialysis, diabetic polyneuropathy, hyperlipidemia, diabetic retinopathy, history of hyperparathyroidism, multiple thyroid nodules, hypertension, subacute osteomyelitis of the left foot, on wound VAC and also the patient is getting antibiotics during dialysis, anemia of chronic renal failure, neuroendocrine cancer, status post radiation currently, follows with hem/onc, history of partial amputation of toe of the left foot, presents with anemia. The patient says during her dialysis, labs showed hemoglobin of 6 and she was advised to come to the hospital. Here, her hemoglobin is 5.9. The patient says there is no hematuria, no blood in stools and Hemoccult is negative in the ER. Because of infection of the left foot and osteomyelitis, she is currently in wheelchair, not ambulating much,denies short of breath, no chest pain. She is feeling tired. No headache, no blurred visions, no earache, no runny nose, no sore throat. Appetite is okay. No difficulty swallowing. No nausea, no abdominal pain. Normal bowel and bladder movements. Currently, resting comfortably and hemodynamically stable. Admission Exam Per Admitting Provider GENERAL: The patient is of moderate built, not in acute distress. VITAL SIGNS: Temperature 36.6, pulse 99, respiratory rate 16, blood pressure 153/77, oxygen 99% on room air. HEENT: Pupils equal, round and reactive to light. Oral mucosa moist. NECK: No JVD, no neck masses. CARDIOVASCULAR: S1 and S2 heard. Regular rate and rhythm. No murmur, no gallop. RESPIRATORY SYSTEM: Normal AP diameter. No accessory muscle use. No wheezing, no crackles. ABDOMEN: Soft, bowel sounds present, nontender, no distention. CENTRAL NERVOUS SYSTEM: Cranial nerves II through XII are grossly intact, nonfocal. EXTREMITIES: Left lower extremity is in brace. Edema in the right lower extremity is seen, no erythema seen. Principal Diagnosis Anemia Discharge Exam General: Lying comfortably in bed, not in distress, on room air HEENT: EOMI, WENDY, MMM, pallor Chest: Right sided permacath. Clear breath sounds bilaterally, no wheezes or crackles CVS: Regular rate and rhythm, normal heart sounds, no murmur Abdomen: Soft, non tender, not distended, normal bowel sounds Neuro: Awake, alert, oriented, conversing well, non focal Extremities: No cyanosis, clubbing. Left pedal edema with wound vac in place. LUE AV fistula + Discharge Data Allergies Allergy/AdvReac Type Severity Reaction Status Date / Time Iodinated Contrast Media AdvReac Severe Patient Verified 09/17/21 19:27 has kidney failure omeprazole AdvReac Severe Increased Verified 09/17/21 19:27 her acid reflux Consultations 09/17/21 19:14 ED Decision to Admit Stat 09/18/21 08:00 Consult Nephrology Routine 09/18/21 08:12 Consult Hematology Routine 09/18/21 10:31 Consult Gastroenterology Routine Hospital Course (1) Anemia: (2) Anemia in ESRD (end-stage renal disease): (3) Insulin dependent diabetes mellitus: (4) Neuroendocrine tumor: (5) Osteomyelitis of left foot: 1. Anemia- Hb on presentation 5.9. Hb 6.6 after 1 U of PRBC. Since inadequate response to transfusion, she received additional 2 U of PRBC during dialysis per nephro. Per nephrology, her anemia can not be explained by her ESRD and recommended GI and hematology evaluation - Repeat Hb 8.5 after 3 U of PRBC. Patient was adamant to leave. Recommended repeat Hb in 2-3 days to ensure it remains stable. - Seen by GI- recommended OP EGD/colonoscopy. Hemoccult negative in ED, FOBT not collected yet. She never had colonoscopy before - Discussed with Dr Benitez, her oncologist. Unfortunately, they don't do IP consult anymore. He will see him sooner after discharge. I have asked my nurse coordinator to help schedule the appointment sooner - Basic work up here has not been revealing- B12 358, folate >22, LDH 166, LFTs unremarkable TSH 3.2, Retics 3.2%, MCV 97. 2. End-stage renal disease: On hemodialysis TTS. Had dialysis today 3. DM-2: Continue home insulin 4. Left foot osteomyelitis: Currently, the patient has a wound VAC, follows with wound care. Her ABx was supposed to be done today but per patient, her foot doctor extended the antibiotics for 2 more weeks and she will get it during dialysis, she also is scheduled to see a specialist in [place]. She has wound care nurses coming at home and gets changed MWF. 5. Hypothyroidism: Continue Synthroid. 6. Chronic pain: Continue home pain medications. 7. History of metastatic neuroendocrine cancer, status post radiation treatment: Following with hematology/oncology at [facility]. Total Time Total Time Spent Total Time Spent (In Minutes): 40 Discharge Plan Discharge Items Patient Disposition: Home - Self-Care Reason For Visit: DR BANDA, LOW HEMOGLOBIN COUNT (6.5) Discharge Diagnosis: Anemia Activity: Resume your previous activity Non-emergency contact: Primary Care Provider and Phlebotomy Coordinator Call non-emergency contact if: you have any medication questions and your symptoms worsen Follow-up/Referrals: Edy Eddy MD [Primary Care Provider] - Diet: Dialysis Renal Addtl Attending Provider Instructions: We recommended that you stay for further work up but you declined. Recommend to follow up with Dr Emmanuel sanches for work up of your anemia Also see the GI doctors for outpatient colonoscopy/endoscopy to rule out occult bleeding Continue your antibiotics, dialysis and wound vac as before Recommend repeat hemoglobin in the next couple of days to ensure they remain steady. Pending Studies at Discharge: No Stand-Alone Forms: My [employer], Smoking Cessation Medications and DC Order Prescriptions: Continued docusate sodium [Colace] 100 mg capsule 100 mg PO DAILY PRN (Reason: Constipation) RF: 0 levothyroxine 125 mcg tablet 125 mcg PO DAILYBB RF: 0 insulin aspart U-100 [Novolog U-100 Insulin aspart] 100 unit/mL Solution 1 sliding scale dose SUBCUT USEASDIRECTD RF: 0 hydromorphone 4 mg tablet 8 mg PO Q3H PRN (Reason: Pain) RF: 0 methadone 5 mg Tablet 10 mg PO BID RF: 0 Humulin N NPH Insulin KwikPen 100 unit/mL (3 mL) insulin pen 30 unit SUBCUT BID RF: 0 sevelamer carbonate [Renvela] 800 mg tablet 1,600 mg PO TIDM RF: 0 Lactinex 1 million cell tablet,chewable 1 tab PO BID Qty: 60 RF: 0 Ira-Umer 0.8 mg tablet 1 tab PO DAILY RF: 0 Discharge Orders: Discharge Order (Routine); Ordered 09/18/21 Ordered By: Sanford Carlisle Admission Data Admit Date/Time: 09/17/21 20:28 Attending Provider: Sanford Carlisle Admit Provider: Sanford Carlisle Primary Care Provider: Edy Eddy Other Providers: Lucio Orourke ; Sharon Aleman ; Scar Carter [facility] ; Glenny Hannon ; Yesica Rivas ; Angeline Tapia ; Trey Enriquez ; Elodia Stahl ; Gustavo Willams ; Otis Thao ; Regis Cabello ; Jermaine Sweeney ; Lisandra Alford ; Bea Hightower ; Charline Benjamin ; Liseth Pham ; Sharda Sepulveda
--- NOTE | 2021-09-19 06:08 | Electrocardiogram Report ---
Test Reason : Blood Pressure : / mmHG Vent. Rate : 107 BPM Atrial Rate : 107 BPM P-R Int : 124 ms QRS Dur : 082 ms QT Int : 324 ms P-R-T Axes : 070 -06 125 degrees QTc Int : 432 ms Sinus tachycardia Left ventricular hypertrophy with repolarization abnormality Abnormal ECG When compared with ECG of 30-JUL-2021 14:41, T wave amplitude has increased in Anterior leads Confirmed by Eddie Mock ([id number]) on 09/19/2021 6:07:53 AM Referred By: ARCENIO SR Confirmed By:Eddie Mock
== END 2021-09-18 17:05 | disposition home health service (06) | DRG 699 ==
LOC: ED 17:38 → 3E 20:28

== ENCOUNTER 2022-01-21 14:01 | Inpatient (IN) ==
[2022-01-21] MEDS ORDERED: MoRPHine SULFATE 10 MG/ML CARP/VIAL IV STA (15:04)
[2022-01-21] MEDS ORDERED: ACETAMINOPHEN 1,000 MG/100 ML VIAL IV STA (15:04)
[2022-01-21] MEDS ORDERED: ONDANSETRON INJ 2 MG/ML 2 ML VIAL IV STA (15:08)
[2022-01-21] MEDS ORDERED: FAMOTIDINE 20MG IV PUSH 20 MG/5 ML SYR IV STA (15:08)
[2022-01-21 16:31] LABS: Basophils # (auto) 0.03 K/uL (0-0.2); Basophils % (auto) 0.5 %; Eosinophils % (auto) 1.6 %; Hematocrit (blood only) 40.3 % (34.1-44.9); Hemoglobin 12.5 g/dl (12.0-16.0); Immature Granulocytes # (auto) 0.02 K/uL (0.00-0.02); Immature Granulocytes % (auto) 0.3 %; Lymphocytes % (auto) 16.4 %; Mean Corpuscular Hemoglobin 31.2 pg (25.0-34.0); Mean Corpuscular Volume 100.5 fL (80.0-100.0); Mean Platelet Volume 8.8 fL (9.4-12.3); Monocytes # (auto) 0.34 K/uL (0.24-0.82); Monocytes % (auto) 5.6 %; Neutrophils # (auto) 4.61 K/uL (1.4-6.5); Neutrophils % (auto) 75.6 %; Platelet Count 264 K/uL (130-400); RDW Coefficient of Variation 17.2 % (11.5-14.5); RDW Standard Deviation 62.7 fL (36.4-46.3); Red Blood Count 4.01 M/uL (3.93-5.22)
[2022-01-21 17:21] LABS: Alanine Aminotransferase 12 U/L (7-52); Albumin Globulin Ratio 0.6 (0.9-2); Albumin Level 3.9 gm/dl (3.4-5.0); Alkaline Phosphatase 98 U/L (34-104); Anion Gap 6 (3-11); Aspartate Aminotransferase 17 U/L (13-39); BUN Creatinine Ratio 10.6 (10-20); Bilirubin,Total 0.7 mg/dl (0.2-1.0); Blood Urea Nitrogen 62 mg/dl (6-23); Calcium 11.9 mg/dl (8.5-10.1); Carbon Dioxide 36 mmol/L (21-32); Chloride 90 mmol/L (98-107); Est GFR (African American) 8.7 ml/min; Est GFR (Non-African American) 7.5 ml/min; Globulin 6.4 gm/dl (2.5-4.0); Glucose 70 mg/dl (70-99(Fasting)); Lipase 13 U/L (11-82); Potassium 5.2 mmol/L (3.5-5.1); Sodium 132 mmol/L (136-145); Total Protein 10.3 gm/dl (6.0-8.3)
--- NOTE | 2022-01-21 18:02 | CT Scan Report ---
CT chest diagnostic wo con, CT abd pelvis wo con CLINICAL HISTORY: 56 years-old Female with back pain, n/v. Acute chest and back pain with nausea and vomiting TECHNIQUE: Multiaxial CT images of the chest, abdomen and pelvis were performed without contrast. A dose lowering technique was utilized adhering to the principles of ALARA. COMPARISON: Chest CT 07/27/2017, CT chest, abdomen and pelvis 11/27/2019, PET CT 01/03/2020 and MRI lumb ar spine 12/03/2020 (images only without accounting report). FINDINGS: CT CHEST: Unremarkable thyroid. No definitive lymphadenopathy. The heart is mildly enlarged with coronary arter y calcifications. Mild distention of the fluid-filled esophagus. No pneumothorax, pleural effusion, o vert pulmonary edema, suspicious pulmonary nodule or mass. Subsegmental bibasilar atelectasis. Indete rminate groundglass nodular opacity of the left upper lobe measuring 7 mm on image 84 appears new fro m the 2019 exam. Unremarkable soft tissues. Degenerative changes of the shoulders and spine. Infiltrative osteolytic l esion involving the T6 vertebral body has increased in size from 04/16/2021 and extends into the bila teral pedicles and facets at T6 and also within the adjacent T5 and T7 vertebral bodies and right pos terior elements of T7. Pathologic burst fracture at T6 with 4 mm anterolisthesis T6 on T7. Kyphotic c urvature of the thoracic spine centered at this level. There is paravertebral edema with soft tissue extension into the central canal and neuroforamina at T5-T6 and T6-T7 bilaterally. There is suggestio n of severe central canal stenosis with bilateral neural foraminal narrowing. CT ABDOMEN/PELVIS: There is no pneumatosis or pneumoperitoneum. The spleen is enlarged, 14.8 cm in length. Unremarkable pancreas and adrenal glands. Cholecystectomy. Biliary ductal dilation is similar to prior and likely postsurgical. Unremarkable appearance of the unenhanced liver which is suboptimally evaluated without the use of IV contrast. Indeterminate 3 cm intermediate density lesion of the interpolar left kidney with Houn[place]field of 23. T his previously demonstrated cystic attenuation the prior study. No hydronephrosis. Unremarkable urina ry bladder and uterus. No abdominal aortic aneurysm. Subcentimeter inguinal chain lymph nodes measure up to 9 mm on the left which are nonspecific. Fluid-filled slightly distended distal esophagus. There is no small bowel obstruction. Moderate to ex tensive fecal retention. Colonic diverticulosis. Normal appendix. Diastases recti with tiny fat fille d periumbilical hernia. Subcutaneous edema of the right anterior abdominal wall. Mild generalized bod y wall edema. Infiltrative osteolytic lesions of the L4 and L5 vertebral bodies are redemonstrated. P athologic burst fracture of the L4 vertebral body is noted with subacute appearing nondisplaced fract ure extending into the left L4 pedicle. 4 mm retropulsion. The soft tissue component of the mass like ly extends into the bilateral L4-L5 neural foramen. There is at least moderate to severe central nicole l stenosis at the L4 level. IMPRESSION: 1. Increased size of the patient's known osteolytic infiltrative lesion involving the T6 vertebral sangita dy, now with extension into the posterior elements and adjacent T6 and T7 vertebral bodies. There is a pathologic burst fracture of the T6 vertebral body with associated anterolisthesis, new from 2020. Soft tissue component of the mass results in associated central canal and neural foraminal narr owing as above. 2. Chronic osteolytic infiltrative lesions at L4 and L5 with pathologic L4 burst fracture extending i nto the posterior elements is also new from 04/16/2021. Soft tissue nodule of the lesion extends into the central canal and neural foramina with associated stenosis as above. 3. Constipation with moderate to extensive fecal retention. 4. No bowel obstruction or bowel wall thickening. 5. Indeterminate intermediate density 3 cm lesion of the interpolar left kidney favoring a complex cy st could be correlated with a nonemergent follow-up renal ultrasound. 6. Additional findings as above. ACT 112: Negative or not required by law. Electronically signed by: Rajeev Roblero M.D. 01/21/2022 6:01 PM
--- NOTE | 2022-01-21 20:00 | Emergency Department Note ---
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 She reports she went to her scheduled appointment in [place] today for management of her left foot osteomyelitis and reports she had a reassuring evaluation. However she drove back to [place] to be seen here given this is where she lives. Patient reports she has been taking her prescribed methadone and hydromorphone without improvement in her back pain. She reports she has not moved her bowels in several days. She denies urinary retention or leg weakness. On arrival the patient is chronically ill-appearing but no distress, afebrile, BP 160s/70s and otherwise stable vital signs. She has tenderness across the mid thoracic spine without midline tenderness to palpation or step-offs. Her abdomen is benign. WBC, H/H and platelets within normal limits. Chemistry without metabolic acidosis. Creatinine 5.8 the setting of the patient's end-stage renal disease with HD due tomorrow. High-sensitivity troponin 5.0, within normal limits. Li pase is not elevated. COVID-19 RNA, and a AT test was negative. CT of the chest and abdomen pelvis were performed. These demonstrate progressive metastatic spinal lesions with new pathologic burst fracture of T6 involving the posterior elements with retrolisthesis with evidence of severe canal stenosis. Findings were reviewed with the patient and admission was recommended for pain control and further management. Risk for unstable fracture and spinal cord compression was reviewed. However the patient did report feeling improved after treatment with IV APAP and morphine as well as Pepcid and Zofran and preferred discharge and outpatient f/u. However, patient will contact her providers kita [facility] to arrange for an appointment for reevaluation and further management of her progressive spinal lesions. Review of the patient's records does show that it had been previously decided that the patient was not a surgical candidate and also not a candidate for chemotherapy. She did receive radiation treatment at the beginning of 2021. As patient was being discharged I was ultimately able to discuss the patient's visit with her [facility] oncologist, Dr. Benitez and he also agreed that the hetal ent should stay for further management including radiation oncology consultation for additional treatment and spine consultation. I then met with the patient again and she subsequently was agreeable for admission. Case was discussed with Dr. Orourke, [facility] Hospitalist, who will evaluate the patient for admission. Triage Nursing notes reviewed and agree them. Prior medical records reviewed Vital Signs: reviewed and remarkable for hypertension. Differential diagnosis: Musculoskeletal, disc herniation, fracture, metastatic disease, cord compression, discitis, sciatica, cauda equina, infection, aortic disease, renal colic, gastrointestinal, as well as other pathologies. ER treatment provided: See below. Diagnostics interpreted by me: ECG: Normal sinus rhythm, 80 bpm, LVH, no overt ST elevation or depression, QTC 445, QRS 100. Cardiac Monitoring: An order for continuous cardiac monitoring was placed and demonstrated Normal sinus rhythm, 80 bpm, no ectopy. Laboratory studies: See below Imaging studies: See below Consultation(s): Dr. Benitez, [facility] oncology Dr. Orourke, [facility] Hospitalist HPI: The patient is a pleasant 56-year-old woman with a past medical history of metastatic neuroendocrine tumor with spinal metastases, history of osteomyelitis of the left foot, insulin-dependent diabetes, end-stage renal disease on hemodialysis TRS, who presents to the emergency department accompanied by her for evaluation of worsening midthoracic back pain and acute nausea and vomiting over the past 24 hours. She reports she went to her scheduled appointment in [place] today for management of her left foot osteomyelitis and reports she had a reassuring evaluation. However she drove back to [place] to be seen here given this is where she lives. Patient reports she has been taking her prescribed methadone and hydromorphone without improvement in her back pain. She reports she has not moved her bowels in several days. She denies urinary retention or leg weakness. ROS: See above HPI for pertinent positives & negatives. A total of 10 systems reviewed and were otherwise negative. VITALS:See Below PHYSICAL EXAMINATION: GENERAL: Awake, alert, uncomfortable/chronically ill-appearing, in no distress, BMI 25.9. HENT: Normocephalic, atraumatic. Oropharynx with dry mucous membranes and otherwise unremarkable. EYES: Normal conjunctiva. Sclera non-icteric. NECK: Supple. No nuchal rigidity. FROM. No JVD. RESPIRATORY: Clear to auscultation. CARDIAC: Regular rate, normal rhythm. Extremities warm and well perfused. Pulses equal. ABDOMEN: Soft, non-distended. No tenderness to palpation. No rebound or guarding. No masses. RECTAL: Deferred. MUSCULOSKELETAL: Chest examination reveals no tenderness. The back is symmetrical on inspection without obvious abnormality, Tenderness across the mid thoracic spine without midline tenderness to palpation or step-offs. There is no CVA tenderness to palpation. LOWER EXTREMITIES: Calves are equal size bilaterally and non-tender. LLE walking boot. Dressing c/d/i. NEURO: Normal sensorium. No sensory or motor deficits noted. SKIN: No rash or jaundice noted. Yasmany Lam MD Past Med/Surg History Medical History Acid reflux Amputation of right great toe Anemia Diabetes Diabetic retinopathy ESRD (end stage renal disease) On dialysis H/O vocal cord paralysis Right side Hypertension MRSA bacteremia 2018; unclear if vertebral or R diabetic foot wound source Neuroendocrine tumor (12/05/19) Pneumonia (10/05/13) Retinal hemorrhage, right eye Sepsis Shortness of breath (10/05/13) Thyroid cancer Thyroid nodule Surgical History AVF (arteriovenous fistula) endovascular L; created 09/2020 H/O thyroidectomy Partial thyroidectomy History of cholecystectomy History of insertion of tunneled central venous catheter (CVC) with port History of surgery 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 Brother No problems noted. Sister Dialysis patient Kidney disease Daughter No problems noted. Daughter Diabetes Social History Smoking Status: Never smoker Second Hand Exposure: No; Hx Alcohol Use: No Hx Substance Use: No Preferred Language: French Communication Ability: Effective Visual Impairment: No Limitations Hearing Ability: Normal Alumni Relations Manager Required: No Beliefs That Will Affect Care: None marital status: Current Living Situation: Spouse Current Living Situation Comment: Home w/ current occupational status: disabled How many Children do You have: 2 Feels Safe at Home: Yes Safety Concerns: Feels Safe At This Time caffeine: No during the past year weight has: remained stable Assistive Devices: Glasses, Special Shoe and Wheelchair Allergies Allergies Allergy/AdvReac Type Severity Reaction Status Date / Time Iodinated Contrast Media AdvReac Severe Patient Verified 09/24/21 07:36 has kidney failure omeprazole AdvReac Severe Increased Verified 09/24/21 07:36 her acid reflux Home Meds Home Medications Medication Instructions Recorded Confirmed insulin aspart U-100 100 unit/mL 1 sliding scale dose subcut 03/15/21 10/24/21 subcutaneous solution (Novolog USEASDIRECTD U-100 Insulin aspart) levothyroxine 125 mcg tablet 125 mcg PO DAILYBB 03/15/21 10/24/21 docusate sodium 100 mg capsule 100 mg PO DAILY PRN Constipation 06/11/21 10/24/21 (Colace) insulin NPH isoph U-100 human 100 30 unit subcut BID 06/11/21 10/24/21 unit/mL (3 mL) subcutaneous pen (Humulin N NPH U-100 Insulin KwikPen) sevelamer carbonate 800 mg tablet 1,600 mg PO TIDM 07/30/21 10/24/21 (Renvela) vitamin B complex-vitamin C-folic 1 tab PO DAILY 09/11/21 10/24/21 acid 0.8 mg tablet (Ira-Umer) hydromorphone 8 mg tablet 8 mg PO DAILY 01/21/22 01/21/22 Previous Rx's Medication Instructions Recorded Lactobacillus acidoph-L.bulgaricus 1 tab PO BID #60 tabs 08/07/21 1 million cell chewable tablet (Lactinex) famotidine 20 mg tablet 20 mg PO BID #20 tabs 01/21/22 ondansetron 4 mg disintegrating 4 mg PO Q6H PRN nausea and 01/21/22 tablet vomiting #14 tabs Results & Data (ED) Vital Signs Vital Signs - 24 hr 08/17/22 14:16 01/21/22 17:21 01/21/22 20:02 Temperature 36.3 C L Temperature Source Oral Pulse Rate 83 88 Pulse Rate [Right Finger] 88 Pulse Rhythm Pulse Rhythm [Right Finger] Regular Pulse Strength [Right Finger] Normal Respiratory Rate 18 16 19 Respiratory Effort / Characteristics Non-Labored Spontaneous Respiratory Depth Normal Respiratory Pattern Regular Blood Pressure 164/79 H 146/76 H Blood Pressure [Right Arm] 161/76 H Blood Pressure Mean 107 Blood Pressure Mean [Right Arm] 104 Pulse Oximetry 96 94 97 Oxygen Delivery Method Room Air Room Air Room Air Oxygen Flow Rate Sepsis Recent Fever Within 48 Hours No Sepsis New/Unexplained Change in Mental Status No Sepsis Action Taken by Nursing No Action Required 01/21/22 21:28 Temperature Temperature Source Pulse Rate 79 Pulse Rate [Right Finger] Pulse Rhythm Regular Pulse Rhythm [Right Finger] Pulse Strength [Right Finger] Respiratory Rate 22 Respiratory Effort / Characteristics Respiratory Depth Respiratory Pattern Blood Pressure Blood Pressure [Right Arm] Blood Pressure Mean Blood Pressure Mean [Right Arm] Pulse Oximetry 96 Oxygen Delivery Method Nasal Cannula Oxygen Flow Rate 4 Sepsis Recent Fever Within 48 Hours Sepsis New/Unexplained Change in Mental Status Sepsis Action Taken by Nursing Laboratory Data Result diagrams: 01/21/22 16:16 01/21/22 16:16 Lab Results 01/21/22 01/21/22 01/21/22 Range/Units 15:35 16:16 16:16 WBC 6.10 (4.8-10.8) K/ul RBC 4.01 (3.93-5.22) M/uL Hgb 12.5 (12.0-16.0) g/dl Hct 40.3 (34.1-44.9) % MCV 100.5 H (80.0-100.0) fL MCH 31.2 (25.0-34.0) pg MCHC 31.0 L (32.0-36.0) g/dL RDW Std Deviation 62.7 H (36.4-46.3) fL RDW Coeff of Padmini 17.2 H (11.5-14.5) % Plt Count 264 (130-400) K/uL MPV 8.8 L (9.4-12.3) fL Immature Gran % (Auto) 0.3 % Neut % (Auto) 75.6 % Lymph % (Auto) 16.4 % [place] % (Auto) 5.6 % Eos % (Auto) 1.6 % Baso % (Auto) 0.5 % Neut # (Auto) 4.61 (1.4-6.5) K/uL Lymph # (Auto) 1.00 L (1.2-3.4) K/uL [place] # (Auto) 0.34 (0.24-0.82) K/uL Eos # (Auto) 0.10 (0-0.50) K/uL Baso # (Auto) 0.03 (0-0.2) K/uL Immature Gran # (Auto) 0.02 (0.00-0.02) K/uL Sodium 132 L (136-145) mmol/L Potassium 5.2 H (3.5-5.1) mmol/L Chloride 90 L (98-107) mmol/L Carbon Dioxide 36 H (21-32) mmol/L Anion Gap 6 (3-11) BUN 62 H (6-23) mg/dl Creatinine 5.85 H* (0.6-1.2) mg/dl Est Cr Clr Drug Dosing Not Reportable Est GFR ( Amer) 8.7 ml/min Est GFR (Non-Af Amer) 7.5 ml/min BUN/Creatinine Ratio 10.6 (10-20) Glucose 70 (70-99(Fasting)) mg/dl Calcium 11.9 H (8.5-10.1) mg/dl Total Bilirubin 0.7 (0.2-1.0) mg/dl AST 17 (13-39) U/L ALT 12 (7-52) U/L Alkaline Phosphatase 98 (34-104) U/L Troponin I High Sens 5.0 (0-14) pg/ml Total Protein 10.3 H (6.0-8.3) gm/dl Albumin 3.9 (3.4-5.0) gm/dl Globulin 6.4 H (2.5-4.0) gm/dl Albumin/Globulin Ratio 0.6 L (0.9-2) Lipase 13 (11-82) U/L SARS-CoV-2, RNA, NAAT NEGATIVE (NEGATIVE) Administered Medications Discontinued Medications Hydromorphone HCl (Hydromorphone Hcl 8 Mg Tab) 8 mg PO NOW STA Stop: 01/21/22 19:51 Last Admin: 01/21/22 19:59 Dose: Not Given Documented By: INEZ Acetaminophen (Ofirmev) 1,000 mg in 100 mls @ 400 mls/hr IV NOW STA Stop: 01/21/22 15:18 Last Infusion: 01/21/22 17:59 Dose: 0 mls/hr Documented By: Admin: 01/21/22 16:47 Dose: 400 mls/hr Documented By: JEMAL Famotidine (Pepcid 20mg Iv Push) 20 mg in 5 mls @ 2.5 mls/min IV NOW STA Stop: 01/21/22 15:09 Last Admin: 01/21/22 16:46 Dose: 2.5 mls/min Documented By: JEMAL Morphine Sulfate (Morphine Sulfate 10 Mg/Ml Carp/Vial) 6 mg IV NOW STA Stop: 01/21/22 15:05 Last Admin: 01/21/22 16:46 Dose: 6 mg Documented By: JEMAL Ondansetron HCl (Ondansetron Inj 2 Mg/Ml 2 Ml Vial) 4 mg IV NOW STA Stop: 01/21/22 15:09 Last Admin: 01/21/22 16:46 Dose: 4 mg Documented By: JEMAL Imaging Data Radiologist's Impression: Abdomen/Pelvis CT 01/21/22 15:04 CT chest diagnostic wo con, CT abd pelvis wo con CLINICAL HISTORY: 56 years-old Female with back pain, n/v. Acute chest and back pain with nausea and vomiting TECHNIQUE: Multiaxial CT images of the chest, abdomen and pelvis were performed without contrast. A dose lowering technique was utilized adhering to the principles of ALARA. COMPARISON: Chest CT 07/27/2017, CT chest, abdomen and pelvis 11/27/2019, PET CT 01/03/2020 and MRI lumbar spine 12/03/2020 (images only without accounting report). FINDINGS: CT CHEST: Unremarkable thyroid. No definitive lymphadenopathy. The heart is mildly enlarg ed with coronary artery calcifications. Mild distention of the fluid-filled esophagus. No pneumothorax, pleural effusion, overt pulmonary edema, suspicious pulmonary nodule or mass. Subsegmental bibasilar atelectasis. Indeterminate groundglass nodular opacity of the left upper lobe measuring 7 mm on image 84 appears new from the 2020 exam. Unremarkable soft tissues. Degenerative changes of the shoulders and spine. Infiltrative osteolytic lesion involving the T6 vertebral body has increased in size from 04/16/2021 and extends into the bilateral pedicles and facets at T6 and also within the adjacent T5 and T7 vertebral bodies and right posterior elements of T7. Pathologic burst fracture at T6 with 4 mm anterolisthesis T6 on T7. Kyphotic curvature of the thoracic spine centered at this level. There is paravertebral edema with soft tissue extension into the central canal and neuroforamina at T5-T6 and T6-T7 bilaterally. There is suggestion of severe central canal stenosis with bilateral neural foraminal narrowing. CT ABDOMEN/PELVIS: There is no pneumatosis or pneumoperitoneum. The spleen is enlarged, 14.8 cm in length. Unremarkable pancreas and adrenal glands. Cholecystectomy. Biliary ductal dilation is similar to prior and likely postsurgical. Unremarkable appearance of the unenhanced liver which is suboptimally evaluated without the use of IV contrast. Indeterminate 3 cm intermediate density lesion of the interpolar left kidney with Hounsfield of 23. This previously demonstrated cystic attenuation the prior study. No hydronephrosis. Unremarkable urinary bladder and uterus. No abdominal aortic aneurysm. Subcentimeter inguinal chain lymph nodes measure up to 9 mm on the left which are nonspecific. Fluid-filled slightly distended distal esophagus. There is no small bowel obstruction. Moderate to extensive fecal retention. Colonic diverticulosis. Normal appendix. Diastases recti with tiny fat filled periumbilical hernia. Subcutaneous edema of the right anterior abdominal wall. Mild generalized body wall edema. Infiltrative osteolytic lesions of the L4 and L5 vertebral bodies are redemonstrated. Pathologic burst fracture of the L4 vertebral body is noted with subacute appearing nondisplaced fracture extending into the left L4 pedicle. 4 mm retropulsion. The soft tissue component of the mass likely extends into the bilateral L4-L5 neural foramen. There is at least moderate to severe central canal stenosis at the L4 level. IMPRESSION: 1. Increased size of the patient's known osteolytic infiltrative lesion involving the T6 vertebral body, now with extension into the posterior elements and adjacent T6 and T7 vertebral bodies. There is a pathologic burst fracture of the T6 vertebral body with associated anterolisthesis, new from 04/16/2021. Soft tissue component of the mass results in associated central canal and neural foraminal narrowing as above. 2. Chronic osteolytic infiltrative lesions at L4 and L5 with pathologic L4 burst fracture extending into the posterior elements is also new from 04/16/2021. Soft tissue nodule of the lesion extends into the central canal and neural foramina with associated stenosis as above. 3. Constipation with moderate to extensive fecal retention. 4. No bowel obstruction or bowel wall thickening. 5. Indeterminate intermediate density 3 cm lesion of the interpolar left kidney favoring a complex cyst could be correlated with a nonemergent follow-up renal ultrasound. 6. Additional findings as above. ACT 112: Negative or not required by law. Electronically signed by: Rajeev Roblero M.D. 01/21/2022 6:[address] 01/21/22 15:04 CT chest diagnostic wo con, CT abd pelvis wo con CLINICAL HISTORY: 56 years-old Female with back pain, n/v. Acute chest and back pain with nausea and vomiting TECHNIQUE: Multiaxial CT images of the chest, abdomen and pelvis were performed without contrast. A dose lowering technique was utilized adhering to the principles of ALARA. COMPARISON: Chest CT 07/27/2017, CT chest, abdomen and pelvis 11/27/2019, PET CT 01/03/2020 and MRI lumbar spine 12/03/2020 (images only without accounting report). FINDINGS: CT CHEST: Unremarkable thyroid. No definitive lymphadenopathy. The heart is mildly enlarged with coronary artery calcifications. Mild distention of the fluid- filled esophagus. No pneumothorax, pleural effusion, overt pulmonary edema, suspicious pulmonary nodule or mass. Subsegmental bibasilar atelectasis. Indeterminate groundglass nodular opacity of the left upper lobe measuring 7 mm on image 84 appears new from the 2020 exam. Unremarkable soft tissues. Degenerative changes of the shoulders and spine. Infiltrative osteolytic lesion involving the T6 vertebral body has increased in size from 04/16/2021 and extends into the bilateral pedicles and facets at T6 and also within the adjacent T5 and T7 vertebral bodies and right posterior elements of T7. Pathologic burst fracture at T6 with 4 mm anterolisthesis T6 on T7. Kyphotic curvature of the thoracic spine centered at this level. There is paravertebral edema with soft tissue extension into the central canal and neur oforamina at T5-T6 and T6-T7 bilaterally. There is suggestion of severe central canal stenosis with bilateral neural foraminal narrowing. CT ABDOMEN/PELVIS: There is no pneumatosis or pneumoperitoneum. The spleen is enlarged, 14.8 cm in length. Unremarkable pancreas and adrenal glands. Cholecystectomy. Biliary ductal dilation is similar to prior and likely postsurgical. Unremarkable appearance of the unenhanced liver which is suboptimally evaluated without the use of IV contrast. Indeterminate 3 cm intermediate density lesion of the interpolar left kidney with Hounsfield of 23. This previously demonstrated cystic attenuation the prior study. No hydronephrosis. Unremarkable urinary bladder and uterus. No abdominal aortic aneurysm. Subcentimeter inguinal chain lymph nodes measure up to 9 mm on the left which are nonspecific. Fluid-filled slightly distended distal esophagus. There is no small bowel o bstruction. Moderate to extensive fecal retention. Colonic diverticulosis. Normal appendix. Diastases recti with tiny fat filled periumbilical hernia. Subcutaneous edema of the right anterior abdominal wall. Mild generalized body wall edema. Infiltrative osteolytic lesions of the L4 and L5 vertebral bodies are redemonstrated. Pathologic burst fracture of the L4 vertebral body is noted with subacute appearing nondisplaced fracture extending into the left L4 pedicle. 4 mm retropulsion. The soft tissue component of the mass likely extends into the bilateral L4-L5 neural foramen. There is at least moderate to severe central canal stenosis at the L4 level. IMPRESSION: 1. Increased size of the patient's known osteolytic infiltrative lesion inv olving the T6 vertebral body, now with extension into the posterior elements and adjacent T6 and T7 vertebral bodies. There is a pathologic burst fracture of the T6 vertebral body with associated anterolisthesis, new from 04/16/2021. Soft tissue component of the mass results in associated central canal and neural foraminal narrowing as above. 2. Chronic osteolytic infiltrative lesions at L4 and L5 with pathologic L4 burst fracture extending into the posterior elements is also new from 04/16/2021. Soft tissue nodule of the lesion extends into the central canal and neural foramina with associated stenosis as above. 3. Constipation with moderate to extensive fecal retention. 4. No bowel obstruction or bowel wall thickening. 5. Indeterminate intermediate density 3 cm lesion of the interpolar left kidney favoring a complex cyst could be correlated with a nonemergent follow-up renal ultrasound. 6. Additional findings as above. ACT 112: Negative or not required by law. Electronically signed by: Rajeev Roblero M.D. 01/21/2022 6:01 PM Discharge Plan Visit Data Chief Complaint: Vomiting Stated Complaint: RT SIDED PAIN, VOMITING, POSS CYST RUPTURE ED Provider: Yasmany Lam Discharge Problem: Pathologic fracture of thoracic vertebrae, Constipation, Intractable nausea and vomiting, Metastatic disease Patient Disposition: Admitted As Inpatient Prescriptions Prescriptions: New famotidine 20 mg tablet 20 mg PO BID Qty: 20 0RF ondansetron 4 mg tablet,disintegrating 4 mg PO Q6H PRN (Reason: nausea and vomiting) Qty: 14 0RF No Action docusate sodium [Colace] 100 mg capsule 100 mg PO DAILY PRN (Reason: Constipation) levothyroxine 125 mcg tablet 125 mcg PO DAILYBB insulin aspart U-100 [Novolog U-100 Insulin aspart] 100 unit/mL Solution 1 sliding scale dose SUBCUT USEASDIRECTD Rx Instructions: sliding scale, tid with meals Humulin N NPH Insulin KwikPen 100 unit/mL (3 mL) insulin pen 30 unit SUBCUT BID sevelamer carbonate [Renvela] 800 mg tablet 1,600 mg PO TIDM Lactinex 1 million cell tablet,chewable 1 tab PO BID Qty: 60 0RF Ira-Umer 0.8 mg tablet 1 tab PO DAILY hydromorphone 8 mg tablet 8 mg PO DAILY
[2022-01-21] MEDS ORDERED: LACTULOSE SYRUP 30 GM/45 ML UDP PO STA (23:13)
[2022-01-21] MEDS ORDERED: DEXTROSE 50% 50 ML SYRINGE IV PRN (23:30)
[2022-01-21] MEDS ORDERED: GLUCOSE 10 TAB/TUBE PO PRN (23:30)
[2022-01-21] MEDS ORDERED: GLUCAGON FOR INJ 1 MG VIAL IM PRN (23:30)
[2022-01-21] MEDS ORDERED: CARBOHYDRATES FOR HYPOGLYCEMIA PO PRN (23:30)
[2022-01-21] MEDS ORDERED: GLUCOSE 40% GEL 15 GM TUBE PO PRN (23:30)
[2022-01-21] MEDS: ONDANSETRON INJ 2 MG/ML 2 ML VIAL IV PRN (23:51)
--- NOTE | 2022-01-22 00:20 | History and Physical Report ---
DATE OF ADMISSION: 01/21/2022. CHIEF COMPLAINT: Severe back pain. HISTORY OF PRESENT ILLNESS: A 56-year-old female with past medical history significant for type 2 diabetes, end-stage renal disease on hemodialysis, diabetic polyneuropathy, hyperlipidemia, history of hypothyroidism, hypertension, history of osteomyelitis of the left foot, status post treatment; follows with [facility], complete antibiotic course, anemia of chronic kidney disease, history of metastatic neuroendocrine cancer, deemed to be not a candidate for chemotherapy, status post radiation treatment, presents with severe back pain and found to have new lesions in the thoracic and lumbar spine, received pain medication. After pain medication, requiring oxygen. She is nonambulatory status, on the wheelchair. Has constipation. Denies any abdominal pain. Normal bladder movements. No chest pain. Amo nauseous and vomited today. Appetite is down. No headaches. She has some blurred vision in the left eye, but that is chronic. No sore throat, no cough, no difficulty swallowing, hemodynamically stable. ALLERGIES: IODINATED DIAGNOSTIC AGENTS, OMEPRAZOLE. PAST MEDICAL HISTORY: As mentioned above. PAST SURGICAL HISTORY: Amputation of the right big toe, , cystoscopy, cystourethroscopy with biopsy, left foot surgery for nonhealing diabetic foot ulcer, right parapharyngeal tumor removed, lumbosacral spine injection, ligation of oviducts, lens extraction of both eyes, partial removal of the left foot bone, radiation therapy, right total thyroid lobectomy, cholecystectomy. MEDICATIONS: As per [facility], the patient is on hydromorphone 8 mg 1.5 tablets every 3 hours p.r.n. for pain, methadone 10 mg p.o. b.i.d., NovoLog sliding scale, Basaglar insulin 32 units in the morning,, sevelamer 800 mg as directed, levothyroxine 125 mcg p.o. daily, Calcium acetate as directed. FAMILY HISTORY: Significant for father has diabetes, hypertension; mother has diabetes; paternal grandfather had heart disorder. SOCIAL HISTORY: , no smoking, alcohol rare, no drug use. REVIEW OF SYSTEMS: As per HPI. Rest of the review of systems is negative. PHYSICAL EXAMINATION: GENERAL: The patient is of moderate build, not in acute distress. VITAL SIGNS: Temperature 36.3, pulse 72, respiratory rate 22, blood pressure 146/76, oxygen 96% on 4 liters. HEENT: Pupils equal, round and reactive to light. Oral mucosa moist. NECK: No JVD, no neck masses. CARDIOVASCULAR: S1 and S2 heard. Regular rate and rhythm. No murmur, no gallop. RESPIRATORY SYSTEM: Normal AP diameter. No accessory muscle use. No wheezing, no crackles. ABDOMEN: Soft, bowel sounds present, nontender, no distention. CENTRAL NERVOUS SYSTEM: Alert, awake, and oriented. No facial droop. Speech is clear. Obeys simple commands. Insight is good. Moves extremities. EXTREMITIES: Left lower extremity is in brace and dressing. LABORATORY DATA: WBC 6.1, hemoglobin 12.5, hematocrit 40.3, platelets 264. Sodium 132, potassium 5.2, chloride 90, CO2 of 36, BUN 62, creatinine 5.85, serum glucose 70, calcium 11.9, total bilirubin 0.7, AST 17, ALT 12, alkaline phosphatase 98, lipase 13. SARS-CoV-2 rapid test negative. IMAGING DATA:. Chest CT increased size of the patient's known osteolytic infiltrative lesion involving T6 vertebral body, now with extension into the posterior elements at distant T6 and T7 vertebral bodies. This is pathological burst fracture of the T6 vertebral body, new from 04/2021. Bony osteolytic infiltrative lesions at L4 and L5 with pathological L4 burst fracture extending to posterior elements. This is also new from 04/16/2021. Constipation with moderate extensive fecal retention. Indeterminate intermediate density 3-cm lesion of the left interpolar left kidney favoring a complex cyst, could be correlated with a nonemergent renal ultrasound. EKG: Normal sinus rhythm at a rate of 80, nonspecific T-wave abnormalities. ASSESSMENT AND PLAN: This is a 56-year-old female who presents with severe back pain. 1. Severe back pain, metastatic neuroendocrine tumor, new lesions in T6 and L4. ER spoke with Hem Oncology, recommended Radiation Oncology and Spine Surgery consult. We will also consult pain management. The patient has a history of radiation treatment in the past, seemed to be not a candidate for chemotherapy. After receiving significant pain medication in the ER, currently, she was somewhat slightly drowsy and also requiring oxygen. Close monitor. Later again requiring iv Dilaudid prn. 2. End-stage renal disease, on hemodialysis, consult Nephrology. 3. Mild hyperkalemia. We will place her on renal diet. Dialysis as per Nephro. 4. History of diabetes. She seems to be on Basaglar insulin 32 units daily and sliding scale. Place on Basaglar 20 units and sliding scale. Follow the blood sugars, follow the HbA1c levels. 5. Hypothyroidism. Continue Synthroid. 6. Constipation. Stool softeners. 7. renal cyst. Needs followup 8. Deep venous thrombosis prophylaxis: Heparin subcutaneously CODE STATUS: Level 1 full code. Job ID: [id number] MTDD
[2022-01-22] MEDS ORDERED: HYDROmorphone INJ 0.5 MG/0.5 ML SYR IV PRN (00:21)
[2022-01-22] MEDS ORDERED: HYDROmorphone INJ 0.5 MG/0.5 ML SYR ONE (00:42)
[2022-01-22] MEDS: HYDROmorphone INJ 0.5 MG/0.5 ML SYR IV PRN ×4 (02:32→15:00)
[2022-01-22] MEDS: LEVOTHYROXINE SODIUM 125 MCG TABLET PO SCH (06:06)
[2022-01-22] MEDS: HEPARIN SOD 5,000 UNIT/0.5 ML VIAL SQ SCH ×3 (06:07→20:36)
[2022-01-22 07:19] LABS: Basophils # (auto) 0.02 K/uL (0-0.2); Basophils % (auto) 0.3 %; Eosinophils # (auto) 0.11 K/uL (0-0.50); Eosinophils % (auto) 1.7 %; Hematocrit (blood only) 39.2 % (34.1-44.9); Hemoglobin 11.9 g/dl (12.0-16.0); Immature Granulocytes # (auto) 0.02 K/uL (0.00-0.02); Immature Granulocytes % (auto) 0.3 %; Lymphocytes # (auto) 1.23 K/uL (1.2-3.4); Lymphocytes % (auto) 19.1 %; Mean Corpuscular Hemoglobin 30.7 pg (25.0-34.0); Mean Corpuscular Hgb Conc 30.4 g/dL (32.0-36.0); Mean Corpuscular Volume 101.3 fL (80.0-100.0); Mean Platelet Volume 8.8 fL (9.4-12.3); Monocytes # (auto) 0.46 K/uL (0.24-0.82); Monocytes % (auto) 7.1 %; Neutrophils % (auto) 71.5 %; Platelet Count 304 K/uL (130-400); RDW Coefficient of Variation 17.2 % (11.5-14.5); RDW Standard Deviation 63.7 fL (36.4-46.3); Red Blood Count 3.87 M/uL (3.93-5.22); White Blood Count 6.44 K/ul (4.8-10.8)
[2022-01-22] MEDS ORDERED: SODIUM CHLORIDE 0.9% 1000ML 1,000 ML IV PRN (07:39)
[2022-01-22] MEDS ORDERED: HEPARIN SOD (PORCINE) 1000 UNIT/ML IV SCH (08:00)
[2022-01-22] MEDS ORDERED: bisacodyL 10 MG SUPP PR ONE (08:00)
[2022-01-22 08:11] LABS: BUN Creatinine Ratio 11.3 (10-20); Calcium 11.9 mg/dl (8.5-10.1); Creatinine Clr Calc Pharmacy 11.3 ml/min; Est GFR (African American) 8.5 ml/min; Est GFR (Non-African American) 7.3 ml/min; Magnesium 7.9 mg/dl (1.7-2.4); Potassium 5.1 mmol/L (3.5-5.1)
--- NOTE | 2022-01-22 08:31 | Pain Management Consultation ---
Date of Consultation January 22, 2022 Assessment & Plan (1) Pathologic fracture of thoracic vertebrae: (2) Radicular pain of thoracic region: (3) ESRD (end stage renal disease): (4) Neuroendocrine tumor: (5) Insulin dependent diabetes mellitus: (6) Metastatic disease: Plan 1. Recommend titration of methadone to 10 mg 3 times daily-order placed 2. Recommend EKG within 2-4 weeks of dosage adjustment of methadone 3. Will initiate Miacalcin nasal spray 1 spray in 1 nostril daily with alternating nostrils 4. Patient may continue with hydromorphone 1 mg IV every 3 hours as needed for breakthrough pain 5. Consider steroid burst/taper due to her findings on imaging of the thoracic region due to likely central canal and neural foraminal compromise contributing to her thoracic radicular pattern pain. Will leave decision making regarding steroid therapy to hospitalist team due to her comorbid medical conditions. 6. Patient pending evaluation with radiation oncology and spine surgery. Pain service has nothing interventional to offer the patient at this time. Thank you for allowing us to participate in the care of Mrs. Wilkins. History of Present Illness Reason for Consultation: Intractable midthoracic back pain with radiation to the right posterior lateral and anterior chest wall Requesting Physician: Lucio Orourke MD Attending Physician: Gary Ordoñez MD History of Present Illness Mrs. Wilkins is a 56-year-old white female who was admitted due to intractable midthoracic back pain which is predominately right-sided traveling to the p osterior lateral and anterior chest wall in the inframammary region. She reported cute onset of recurrent pain over the past 2 days without known injury. She does have history of some chronic axial back pain with history of compression fracture secondary to metastatic disease. She has known history of neuroendocrine cancer with metastatic disease and has had prior radiation treatment to the lumbar spinal region. She has following with palliative care through [facility] who has been treating the patient chronically with methadone 10 mg twice daily and hydromorphone 8-12 mg every 3 hours for as needed breakthrough pain with recent adjustment of hydromorphone due to increased pain complaints. She further has past medical history significant for insulin-dependent type 2 diabetes mellitus with end-stage renal disease on hemodialysis, diabetic polyneuropathy, hyperlipidemia, hypothyroidism, hypertension, osteomyelitis of left foot with recent completed course of antibiotic therapy and removal of external fixator at [facility], and anemia of chronic disease. Patient is chronically nonambulatory utilizing a nonmotorized wheelchair. She reports IV hydromorphone allowed her to sleep for 3-4 hours last evening and she was able to rest. She has been dealing with constipation but did have BM this morning which alleviated some of her abdominal fullness. She reports chronic utilization of generic Colace. She reports inability to utilize MiraLAX due to kidney function abnormalities per her report. She reports the pain is aching and sharp in characteristic. She rates the pain a 5/10 at its best and 10/10 at its worst. Pain can be aggravated with movement. She denies any left posterior lateral or anterior chest wall pain complaints. She denies lower extremity radicular pattern pain. She denies bowel or bladder incontinence and denies saddle anesthesia. Plan of care discussed with Dr. Salome Parks Pain Assessment Full Body Front + Back: 1. Mid-thoracic back pain 2. Right posterolateral chest wall 3. Right lateroanterior chest wall Pain scale - at its best (0-10): 5 Pain scale - at its worst (0-10): 10 Allergies Allergy/AdvReac Type Severity Reaction Status Date / Time Iodinated Contrast Media AdvReac Severe Patient Verified 09/24/21 07:36 has kidney failure omeprazole AdvReac Severe Increased Verified 09/24/21 07:36 her acid reflux Home Medications Medication Instructions Recorded Confirmed Type insulin aspart U-100 100 unit/mL 1 sliding scale dose subcut 03/15/21 10/24/21 History subcutaneous solution (Novolog USEASDIRECTD U-100 Insulin aspart) levothyroxine 125 mcg tablet 125 mcg PO DAILYBB 03/15/21 10/24/21 History docusate sodium 100 mg capsule 100 mg PO DAILY PRN Constipation 06/11/21 10/24/21 History (Colace) insulin NPH isoph U-100 human 100 30 unit subcut BID 06/11/21 10/24/21 History unit/mL (3 mL) subcutaneous pen (Humulin N NPH U-100 Insulin KwikPen) sevelamer carbonate 800 mg tablet 1,600 mg PO TIDM 07/30/21 10/24/21 History (Renvela) Lactobacillus acidoph-L.bulgaricus 1 tab PO BID #60 tabs 08/07/21 10/24/21 Rx 1 million cell chewable tablet (Lactinex) vitamin B complex-vitamin C-folic 1 tab PO DAILY 09/11/21 10/24/21 History acid 0.8 mg tablet (Ira-Umer) famotidine 20 mg tablet 20 mg PO BID #20 tabs 01/21/22 Rx hydromorphone 8 mg tablet 8 mg PO DAILY 01/21/22 01/21/22 History ondansetron 4 mg disintegrating 4 mg PO Q6H PRN nausea and 01/21/22 Rx tablet vomiting #14 tabs Pain History Pain Intensity Pain scale - at its best (0-10): 5 Pain scale - at its worst (0-10): 10 Patient History Medical History (Updated 01/22/22 @ 08:54 by Landry Mcnally PA-C) Acid reflux Amputation of right great toe Anemia Diabetes Diabetic retinopathy ESRD (end stage renal disease) On dialysis H/O vocal cord paralysis Right side Hypertension MRSA bacteremia 2017; unclear if vertebral or R diabetic foot wound source Neuroendocrine tumor (12/05/19) Pneumonia (10/05/13) Radicular pain of thoracic region Retinal hemorrhage, right eye Sepsis Shortness of breath (10/05/13) Thyroid cancer Thyroid nodule Surgical History AVF (arteriovenous fistula) endovascular L; created 09/2020 H/O thyroidectomy Partial thyroidectomy History of cholecystectomy History of insertion of tunneled central venous catheter (CVC) with port History of surgery 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 Brother No problems noted. Sister Dialysis patient Kidney disease Daughter No problems noted. Daughter Diabetes Social History Smoking Status: Never smoker Second Hand Exposure: No; Hx Alcohol Use: No Hx Substance Use: No Preferred Language: Georgian Communication Ability: Effective Visual Impairment: No Limitations Hearing Ability: Normal Cosmetology Instructor Required: No Beliefs That Will Affect Care: None marital status: Current Living Situation: Spouse Current Living Situation Comment: Home w/ current occupational status: disabled How many Children do You have: 2 Feels Safe at Home: Yes Safety Concerns: Feels Safe At This Time caffeine: No during the past year weight has: remained stable Assistive Devices: Glasses, Special Shoe and Wheelchair Physical Exam Physical Exam: General: Patient sitting quietly in exam room in no acute distress. Speech and thought process appropriate. Mood and affect appropriate. Cognition intact. Head: Normocephalic and atraumatic. ENT: No evidence of nasal or oral mucosal lesions. Mucous membranes are moist. Eyes: Pupils equal round reactive to light. Neck: Supple without adenopathy and full range of motion. Thoracic spine: Patient is minimally tender over the midline to percussion at approximately T5-6 level. Nontender to direct outpatient over the midline. Patient is tender in the right thoracic paravertebral region extending through the posterior lateral and anterior chest wall to direct palpation. There is no allodynia or hyperpathia. There is no palpable abnormality or visible abnormality appreciated. Chest: Nontender to palpation of the costosternal junction. Patient is tender with AP and lateral compression of the right chest wall. Abdomen: Soft and nondistended. No organomegaly. Bowel sounds active. Somewhat protuberant. Back/spine: Nontender over the midline of the lumbar spine. Minimal generalized tenderness over the lumbosacral region which is nonfocal. No focal facet or SI joint tenderness. Lower extremities: SLR negative. Strength testing 5/5 in the right with dorsi and plantar flexion as well as knee flexion/extension. Patient has Cam walking boot present on the left lower extremity extending from the foot to the infrapatellar region which was not removed for visual inspection status post removal of external fixator 01/21/2022. Neurologic: Cranial nerves grossly intact. Ambulatory function not witnessed-nonmotorized wheelchair. Results (Pain Clinic) Diagnostic Review CT Findings: [place] [phone] CT Scan Report Patient:TANIA WILKINS Admit Date:01/21/22 MR#:[id number] Address1:[address] Acct ID:[id number] Address2: Date:1965 [facility] Zip:[place] [address] Age:56 Location:ED Sex:F Room/Bed: Att Phy: Diagnosis:RT SIDED PAIN, VOMITING, POSS CYST RUPTURE Ana Laura Phy:Edy Eddy MD Service Date:01/21/22 [facility] Phy: Interpreting Phy:Rajeev RobleroAdmit Phy: Ordering Phy:Yasmany Lam M.D. cc: ~ CT chest diagnostic wo con, CT abd pelvis wo con CLINICAL HISTORY: 56 years-old Female with back pain, n/v. Acute chest and back pain with nausea and vomiting TECHNIQUE: Multiaxial CT images of the chest, abdomen and pelvis were performed without contrast. A dose lowering technique was utilized adhering to the principles of ALARA. COMPARISON: Chest CT 07/27/2017, CT chest, abdomen and pelvis 11/27/2019, PET CT 01/03/2020 and MRI lumbar spine 12/03/2020 (images only without accounting report). FINDINGS: CT CHEST: Unremarkable thyroid. No definitive lymphadenopathy. The heart is mildly enlarged with coronary artery calcifications. Mild distention of the fluid- filled esophagus. No pneumothorax, pleural effusion, overt pulmonary edema, suspicious pulmonary nodule or mass. Subsegmental bibasilar atelectasis. Indeterminate groundglass nodular opacity of the left upper lobe measuring 7 mm on image 84 appears new from the 2020 exam. Unremarkable soft tissues. Degenerative changes of the shoulders and spine. Infiltrative osteolytic lesion involving the T6 vertebral body has increased in size from 04/16/2021 and extends into the bilateral pedicles and facets at T6 and also within the adjacent T5 and T7 vertebral bodies and right posterior elements of T7. Pathologic burst fracture at T6 with 4 mm anterolisthesis T6 on T7. Kyphotic curvature of the thoracic spine centered at this level. There is paravertebral edema with soft tissue extension into the central canal and neuroforamina at T5-T6 and T6-T7 bilaterally. There is suggestion of severe central canal stenosis with bilateral neural foraminal narrowing. CT ABDOMEN/PELVIS: There is no pneumatosis or pneumoperitoneum. The spleen is enlarged, 14.8 cm in length. Unremarkable pancreas and adrenal glands. Cholecystectomy. Biliary ductal dilation is similar to prior and likely postsurgical. Unremarkable appearance of the unenhanced liver which is suboptimally evaluated without the use of IV contrast. Indeterminate 3 cm intermediate density lesion of the interpolar left kidney with Hounsfield of 23. This previously demonstrated cystic attenuation the prior study. No hydronephrosis. Unremarkable urinary bladder and uterus. No abdominal aortic aneurysm. Subcentimeter inguinal chain lymph nodes measure up to 9 mm on the left which are nonspecific. Fluid-filled slightly distended distal esophagus. There is no small bowel obstruction. Moderate to extensive fecal retention. Colonic diverticulosis. Normal appendix. Diastases recti with tiny fat filled periumbilical hernia. Subcutaneous edema of the right anterior abdominal wall. Mild generalized body wall edema. Infiltrative osteolytic lesions of the L4 and L5 vertebral bodies are redemonstrated. Pathologic burst fracture of the L4 vertebral body is noted with subacute appearing nondisplaced fracture extending into the left L4 pedicle. 4 mm retropulsion. The soft tissue component of the mass likely extends into the bilateral L4-L5 neural foramen. There is at least moderate to severe central canal stenosis at the L4 level. IMPRESSION: 1. Increased size of the patient's known osteolytic infiltrative lesion involving the T6 vertebral body, now with extension into the posterior elements and adjacent T6 and T7 vertebral bodies. There is a pathologic burst fracture of the T6 vertebral body with associated anterolisthesis, new from 04/16/2021. Soft tissue component of the mass results in associated central canal and neural foraminal narrowing as above. 2. Chronic osteolytic infiltrative lesions at L4 and L5 with pathologic L4 burst fracture extending into the posterior elements is also new from 04/16/2021. Soft tissue nodule of the lesion extends into the central canal and neural foramina with associated stenosis as above. 3. Constipation with moderate to extensive fecal retention. 4. No bowel obstruction or bowel wall thickening. 5. Indeterminate intermediate density 3 cm lesion of the interpolar left kidney favoring a complex cyst could be correlated with a nonemergent follow-up renal ultrasound. 6. Additional findings as above. ACT 112: Negative or not required by law. Electronically signed by: Rajeev Roblero M.D. 01/21/2022 6:01 PM Dictated:01/21/22 173 Transcribed: 01/21/221738
[2022-01-22] MEDS: ONDANSETRON INJ 2 MG/ML 2 ML VIAL IV PRN ×2 (08:44→17:57)
[2022-01-22] MEDS: INSULIN ASPART PER UNIT SC SCH ×4 (08:44→22:03)
[2022-01-22] MEDS: SEVELAMER HCL 800 MG TABLET PO SCH ×3 (08:51→17:16)
[2022-01-22] MEDS: LANTUS PER UNIT CHARGE SQ SCH (08:51)
[2022-01-22] MEDS: ADVANCED PROBIOTIC 1250 MG CAPSULE PO SCH ×2 (08:52→20:36)
[2022-01-22] MEDS: LACTULOSE SYRUP 30 GM/45 ML UDP PO SCH ×2 (08:53→09:06)
[2022-01-22] MEDS: NEPHROCAPS PO SCH (08:53)
[2022-01-22 09:12] LABS: Estimated Average Glucose 94 mg/dl; Hemoglobin A1C 4.9 % (4.5-5.6)
--- NOTE | 2022-01-22 09:41 | Radiation OncologyConsultation ---
Date of Consultation January 22, 2022 Assessment & Plan (1) Secondary carcinoma of bone: Assessment: Ms. Wilkins is a 56-year-old female with a history of metastatic neuroendocrine tumor. She has been treated previously with palliative radiation to the T-spine in 2019 and more recently to the L-spine and sacrum in June 2021. She now presents with severe pain in the upper midportion of the back. CT scan shows evidence of burst fracture of T6. There is also a burst fracture of L4 but this was in the previously treated field and is not causing pain at this time. Treatment Options: 1. Systemic chemotherapy not felt to be a viable treatment option at this time. 2. Continued use of pain medication. 3. Consideration of palliative radiation. Recommendations: Palliative radiation to T5-T7. Plan: 1. Patient has agreed to a course of palliative radiation. A consent form was reviewed with the patient and the risks were reviewed and initialed and the consent form was reviewed signed and witnessed. 2. Patient will undergo CT simulation with her back elevated and presimulation pain medication. 3. We will plan to treat the affected T-spine starting treatment at the end of the day today for a planned 10 fractions. 4. Palliative treatment would begin as an inpatient but could be completed as an outpatient if warranted. 5. Continue follow-up with medical oncology and PCP. Rationale/Explanation of Treatment: Patient has evidence of progressive bony disease involving T6 increased from prior scans of 04/16/2021. There is a burst fracture of T6 and extension into T5 and T7. This area should respond to a course of palliative radiation. There is also a burst fracture at L4 extending into the posterior elements reportedly also new from 04/16/2021. This area however was previously treated in June of this year and presently does not appear to be causing pain. I discussed with the patient the use of palliative radiation to the thoracic spine. She has been treated previously to the C-spine and LS spine with good pain control. She was agreeable to CT simulation as long as she did not have to lie flat. I told her we could simulate her on a breast board elevating her back and with premedication the patient agreed to try this. Following simulation we will design treatment portals to treat T5-T7 and we will attempt to start her course of palliative radiation this afternoon continuing Wednesday through Wednesday for 10 fractions. This treatment will begin as an inpatient but can be shifted to outpatient if the patient is discharged. The patient had multiple questions which were answered to her full satisfaction. Thank you for allowing us to participate in the care of this patient. This chart was completed in part utilizing [employer] Speech Voice Recognition software. Grammatical errors, random word insertions, pronoun errors and incomplete sentences are occasional consequence of this system due to software limitations, ambient noise and hardware issues. Any formal questions or concerns about the content, text or information contained within the body of this dictation should be directly addressed to the provider for clarification. Roque Abernathy MD Department of Radiation Oncology [facility] History of Present Illness Reason for Consultation: Acute onset of upper back pain. Requesting Physician: Dr. Orourke Attending Physician: Gary Ordoñez MD History of Present Illness Ms. Wilkins is a 54-year-old female who presented with a two-month history of right neck, shoulder and arm pain with occasional right arm tingling but no weakness. 08/03/2017. Patient underwent a core needle biopsy of the spine due to abnormal radiologic findings. This was benign. Accession #: [id number]. 11/14/2019. X-ray of the C-spine showed abnormalities with recommendations for MRI. 11/22/2019. MRI of the C-spine shows lesion at C4 extending into the posterior elements and involving the spinous process measuring 2.7 x 2.2 x 2.0 cm. An additional focus of marrow signal alteration and mild expansion was noted involving the posterior elements/spinous process at C2 measuring 1.5 x 1.6 x 1.4 cm. These are highly suspicious for metastatic disease or myeloma. 11/24/2019. Patient is seen by Dr. Kline (orthopedic surgery) with a finding of a cervical lesion and complaint of neck and arm pain. She notes that this time that the pain is intermittent but at times severe with a level 10 at its worst and level 7 at best. He reviewed the scans and felt this was consistent with metastatic disease and arranged for the patient to be seen by Dr. Prado (interventional radiologist) for consideration of a biopsy. He recommended additional work-up with MRIs of the thoracic and lumbar spine and started the patient on gabapentin. 11/28/2019. CT scans of the chest abdomen and pelvis were taken without IV contrast. This showed a probable mass in the tail of the pancreas with peripheral calcifications anteriorly measuring 3.8 x 3.5 cm. This was noted on a previous examination of 07/27/2007 and appears stable. There is a 1.4 x 1.5 cm solid lesion emanating from the lateral aspect of the interpolar region of the left kidney new compared to prior exam of 07/27/2017. The lungs were unremarkable. Examination of the bones showed a lytic lesion in the posterior vertebral body of T6 and mixed blastic and lytic destruction of the vertebral body of L4. There is a heterogeneous bone density in L5. 12/05/2019. A core needle biopsy of the cyst final C4 lesion was performed. This was felt to be compatible with a neuroendocrine neoplasm. Immune assays were performed and based on the cyto-and histomorphology are consistent with a neuroendocrine neoplasm. The differential considered include a well- differentiated neuroendocrine neoplasm and a paraganglioma. This later was favored based on the tumor cell immunophenotype (lacking expression for cytoke ratins). The presence of a pancreatic tail was also mention with possible benefit from tissue sampling of this lesion. Accession #: [id number]. 12/19/2019. Patient seen by Dr. Hannon (medical oncology). He noted the findings of the recent needle biopsy consistent with a neuroendocrine neoplasm with mitotic index estimated at 5-8%. He noted past medical history significant for diabetes, hypertension, CKD with high creatinine and present complaint of right neck pain radiating to the right arm with feelings of numbness and tingling. He recommended further staging work-up consisting of a PET CT scan and blood work. BUN and creatinine are high with an EGFR of 11.4. 01/08/2020. Patient to return to see Dr. Hannon (medical oncology) to review the recent PET scan and lab work. He felt the patient appears to have a low-grade disease with an estimated mitotic index of 5-8%. 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 He discussed these findings with the patient and suggested consideration of palliative radiation. He was kind enough to refer the patient to radiation oncology. He did discuss the risks of disease progression and possible cord compression. He arrange for the patient to return for follow-up to his office in 6 weeks as well as continued follow-up with nephrology. 01/11/2020. Patient seen in radiation oncology for evaluation and discussion of the role of palliative radiation. 01/03/2020. Patient undergoes staging PET CT scan with NETSPOT GA 68. 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 There were multiple lytic metastatic bony lesions located within C1, C4, T6 and L4. No other areas of abnormal uptake are noted in the chest abdomen or pelvis. 12/03/2020. MRI of the lumbar spine. Marrow replacing lesions within L4 and L5 vertebral bodies with extraosseous soft tissue component at L4 extending into the ventral epidural space causing partial effacement of the bilateral tijerina barticular zones and mild to moderate spinal canal stenosis, possibly impinging on the existing nerve roots of L4, right more than left. Intermediate 1.0 cm lesion centered within the left aspect of T11 vertebral body. Additional marrow replacing lesions at C2, C4, T4, T6 vertebral bodies, incompletely characterized on electrologist images. 04/16/2021. PET/CT. Slight decreased uptake and size of the right carotid sheath mass. Decreased uptake of cervical lytic osseous metastasis. Increased extent of T4 vertebral body lytic osseous metastasis. Stable size of the lumbar lytic osseous metastasis. No new metastatic lesions are identified. 07/07/2021. Patient has developed pain in the right SI area. This radiates to the groin and into the inner aspect of the right lower leg. She gives this a pain level of 7 out of 10. She was referred to the pain clinic and has had injections. These did not help with the issue. She therefore underwent PET/CT for evaluation. She is on pain medication which includes Dilaudid, methadone and gabapentin. Due to increasing pain and findings on studies she was referred from medical oncology to our office to discuss palliative radiation therapy. 01/21/2022. Patient noted the onset of mid to upper back pain a few days ago and presented to the emergency department. CT of the chest was performed. This showed an infiltrative osteolytic lesion involving the T6 vertebral body which is increased in size from a prior scan of 04/16/2021. This extends into the bilateral pedicles and facets at T6 and also within the adjacent T5 and T7 vertebral body and right posterior elements of T7. There is a pathologic burst fracture at T6 with 4 mm anterior lithiasis T6 on T7. Also noted was an infiltrative lesion at L4 and L5 with pathologic L4 burst fracture extending into the posterior elements also new from 04/16/2021. Soft tissue nodule the lesion extends into the central canal and neural foramina with associated stenosis. 01/22/2022. Patient seen as an inpatient referral for evaluation and discussion of the role of palliative radiation. This chart was completed in part utilizing [employer] Speech Voice Recognition software. Grammatical errors, random word insertions, pronoun errors and incomplete sentences are occasional consequence of this system due to software limitations, ambient noise and hardware issues. Any formal questions or concer ns about the content, text or information contained within the body of this dictation should be directly addressed to the provider for clarification. Roque Abernathy MD Department of Radiation Oncology [facility] Allergies Allergy/AdvReac Type Severity Reaction Status Date / Time Iodinated Contrast Media AdvReac Severe Patient Verified 09/24/21 07:36 has kidney failure omeprazole AdvReac Severe Increased Verified 09/24/21 07:36 her acid reflux Home Medications Medication Instructions Recorded Confirmed Type insulin aspart U-100 100 unit/mL 1 sliding scale dose subcut 03/15/21 10/24/21 History subcutaneous solution (Novolog USEASDIRECTD U-100 Insulin aspart) levothyroxine 125 mcg tablet 125 mcg PO DAILYBB 03/15/21 10/24/21 History docusate sodium 100 mg capsule 100 mg PO DAILY PRN Constipation 06/11/21 10/24/21 History (Colace) insulin NPH isoph U-100 human 100 30 unit subcut BID 06/11/21 10/24/21 History unit/mL (3 mL) subcutaneous pen (Humulin N NPH U-100 Insulin KwikPen) sevelamer carbonate 800 mg tablet 1,600 mg PO TIDM 07/30/21 10/24/21 History (Renvela) Lactobacillus acidoph-L.bulgaricus 1 tab PO BID #60 tabs 08/07/21 10/24/21 Rx 1 million cell chewable tablet (Lactinex) vitamin B complex-vitamin C-folic 1 tab PO DAILY 09/11/21 10/24/21 History acid 0.8 mg tablet (Ira-Umer) famotidine 20 mg tablet 20 mg PO BID #20 tabs 01/21/22 Rx hydromorphone 8 mg tablet 8 mg PO DAILY 01/21/22 01/21/22 History ondansetron 4 mg disintegrating 4 mg PO Q6H PRN nausea and 01/21/22 Rx tablet vomiting #14 tabs Patient History Medical History (Updated 01/22/22 @ 09:54 by Lili Mansfield PA-C) Acid reflux Amputation of right great toe Anemia Diabetes Diabetic retinopathy ESRD (end stage renal disease) On dialysis H/O vocal cord paralysis Right side Hypertension MRSA bacteremia 2017; unclear if vertebral or R diabetic foot wound source Neuroendocrine tumor (12/05/19) Pneumonia (10/05/13) Radicular pain of thoracic region Retinal hemorrhage, right eye Sepsis Shortness of breath (10/05/13) Thyroid cancer Thyroid nodule Surgical History AVF (arteriovenous fistula) endovascular L; created 09/2020 H/O thyroidectomy Partial thyroidectomy History of cholecystectomy History of insertion of tunneled central venous catheter (CVC) with port History of surgery 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 Brother No problems noted. Sister Dialysis patient Kidney disease Daughter No problems noted. Daughter Diabetes Social History Smoking Status: Never smoker Second Hand Exposure: No; Hx Alcohol Use: No Hx Substance Use: No Preferred Language: Italian Communication Ability: Effective Visual Impairment: No Limitations Hearing Ability: Normal Clinical Administrator Required: No Beliefs That Will Affect Care: None marital status: Current Living Situation: Spouse Current Living Situation Comment: Home w/ current occupational status: disabled How many Children do You have: 2 Feels Safe at Home: Yes Safety Concerns: Feels Safe At This Time caffeine: No during the past year weight has: remained stable Assistive Devices: Glasses, Special Shoe and Wheelchair Review of Systems Constitutional: + malaise and + weakness Eyes: She denies any changes in vision. Ear, Nose, Mouth, Throat: She is noted no changes in hearing. Respiratory: no cough, no dyspnea, no dyspnea on exertion and no wheezing Cardiovascular: no dyspnea at rest, no palpitations and no syncope Gastrointestinal: no nausea, no vomiting and no diarrhea/loose stools Genitourinary: no dysuria and no difficulty urinating Musculoskeletal: See history of present illness. Neurologic: no paresthesia, no tremor(s) and no headache(s) Physical Exam Constitutional: WD/WN, vitals as above Lethargic Eyes: PERRL, conjunctivae normal, anicteric sclerae ENMT: Ears: no hearing impairment Respiratory: normal respiratory effort, lungs clear to auscultation Cardiovascular: RRR, no murmur, no edema Gastrointestinal (Abdomen): normal bowel sounds, soft, nontender, no hepatosplenomegaly Musculoskeletal: There is tenderness of the spinal processes of the thoracic spine and paraspinous musculature. Skin: no rashes, warm and dry Psychiatric: A+Ox3, euthymic affect Time Spent Attending This documentation has been prepared in full or in part by Lili BO acting as a scribe under my direction. I, Dr. Abernathy personally reviewed the services described and have reviewed the documentation to ensure its accuracy. I spent 20 minutes with direct face to face interaction with the patient which included obtaining clinical information, recommending a plan of action and answering questions. I spent 30 minutes reviewing her chart and her scans with radiology and preparation of this document. REI
--- NOTE | 2022-01-22 09:57 | Radiation OncologyConsultation ---
Date of Consultation January 22, 2022 Assessment & Plan (1) Secondary carcinoma of bone: History of Present Illness Reason for Consultation: Back pain Attending Physician: Gary Ordoñez MD Allergies Allergy/AdvReac Type Severity Reaction Status Date / Time Iodinated Contrast Media AdvReac Severe Patient Verified 09/24/21 07:36 has kidney failure omeprazole AdvReac Severe Increased Verified 09/24/21 07:36 her acid reflux Home Medications Medication Instructions Recorded Confirmed Type insulin aspart U-100 100 unit/mL 1 sliding scale dose subcut 03/15/21 10/24/21 History subcutaneous solution (Novolog USEASDIRECTD U-100 Insulin aspart) levothyroxine 125 mcg tablet 125 mcg PO DAILYBB 03/15/21 10/24/21 History docusate sodium 100 mg capsule 100 mg PO DAILY PRN Constipation 06/11/21 10/24/21 History (Colace) insulin NPH isoph U-100 human 100 30 unit subcut BID 06/11/21 10/24/21 History unit/mL (3 mL) subcutaneous pen (Humulin N NPH U-100 Insulin KwikPen) sevelamer carbonate 800 mg tablet 1,600 mg PO TIDM 07/30/21 10/24/21 History (Renvela) Lactobacillus acidoph-L.bulgaricus 1 tab PO BID #60 tabs 08/07/21 10/24/21 Rx 1 million cell chewable tablet (Lactinex) vitamin B complex-vitamin C-folic 1 tab PO DAILY 09/11/21 10/24/21 History acid 0.8 mg tablet (Ira-Umer) famotidine 20 mg tablet 20 mg PO BID #20 tabs 01/21/22 Rx hydromorphone 8 mg tablet 8 mg PO DAILY 01/21/22 01/21/22 History ondansetron 4 mg disintegrating 4 mg PO Q6H PRN nausea and 01/21/22 Rx tablet vomiting #14 tabs Patient History Medical History (Updated 01/22/22 @ 09:54 by Lili Mansfield PA-C) Acid reflux Amputation of right great toe Anemia Diabetes Diabetic retinopathy ESRD (end stage renal disease) On dialysis H/O vocal cord paralysis Right side Hypertension MRSA bacteremia 2017; unclear if vertebral or R diabetic foot wound source Neuroendocrine tumor (12/05/19) Pneumonia (10/05/13) Radicular pain of thoracic region Retinal hemorrhage, right eye Sepsis Shortness of breath (10/05/13) Thyroid cancer Thyroid nodule Surgical History AVF (arteriovenous fistula) endovascular L; created 09/2020 H/O thyroidectomy Partial thyroidectomy History of cholecystectomy History of insertion of tunneled central venous catheter (CVC) with port History of surgery 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 Brother No problems noted. Sister Dialysis patient Kidney disease Daughter No problems noted. Daughter Diabetes Social History Smoking Status: Never smoker Second Hand Exposure: No; Hx Alcohol Use: No Hx Substance Use: No Preferred Language: Bahamian Communication Ability: Effective Visual Impairment: No Limitations Hearing Ability: Normal Media Account Executive Required: No Beliefs That Will Affect Care: None marital status: Current Living Situation: Spouse Current Living Situation Comment: Home w/ current occupational status: disabled How many Children do You have: 2 Feels Safe at Home: Yes Safety Concerns: Feels Safe At This Time caffeine: No during the past year weight has: remained stable Assistive Devices: Glasses, Special Shoe and Wheelchair Review of Systems Constitutional: + malaise and + weakness Respiratory: no cough and no chest congestion Cardiovascular: Additional Comments: Radicular pain to the chest radiating from the thoracic spine. Gastrointestinal: no nausea, no vomiting and no diarrhea/loose stools Genitourinary: no dysuria and no difficulty urinating Musculoskeletal: See history of present illness Physical Exam Constitutional: WD/WN, vitals as above Lethargic Eyes: PERRL, conjunctivae normal, anicteric sclerae ENMT: Ears: no hearing impairment Respiratory: normal respiratory effort, lungs clear to auscultation Cardiovascular: RRR, no murmur, no edema Gastrointestinal (Abdomen): normal bowel sounds, soft, nontender, no hepatosplenomegaly Musculoskeletal: Minimal tenderness of the thoracic spine. Spinal processes and paraspinous musculature. Skin: no rashes, warm and dry Neurologic: Normal strength and coordination. Psychiatric: A+Ox3, euthymic affect Results (Rad Onc) [place] [phone] CT Scan Report Patient:TANIA YOUSIF Admit Date:01/21/22 MR#:[id number] Address1:[address] Acct ID:[id number] Address2: Date:1965 [facility] Zip:[place] [id number] Age:56 Location:ED Sex:F Room/Bed: Att Phy: Diagnosis:RT SIDED PAIN, VOMITING, POSS CYST RUPTURE Ana Laura Phy:Edy Eddy MD Service Date:01/21/22 Fam Phy: Interpreting Phy:Rajeev RobleroAdmit Phy: Ordering Phy:Yasmany Lam M.D. cc: ~ CT chest diagnostic wo con, CT abd pelvis wo con CLINICAL HISTORY: 56 years-old Female with back pain, n/v. Acute chest and back pain with nausea and vomiting TECHNIQUE: Multiaxial CT images of the chest, abdomen and pelvis were performed without contrast. A dose lowering technique was utilized adhering to the principles of ALARA. COMPARISON: Chest CT 07/27/2017, CT chest, abdomen and pelvis 11/27/2019, PET CT 01/03/2020 and MRI lumbar spine 12/03/2020 (images only without accounting report). FINDINGS: CT CHEST: Unremarkable thyroid. No definitive lymphadenopathy. The heart is mildly enlarged with coronary artery calcifications. Mild distention of the fluid- filled esophagus. No pneumothorax, pleural effusion, overt pulmonary edema, suspicious pulmonary nodule or mass. Subsegmental bibasilar atelectasis. Indeterminate groundglass nodular opacity of the left upper lobe measuring 7 mm on image 84 appears new from the 2020 exam. Unremarkable soft tissues. Degenerative changes of the shoulders and spine. Infiltrative osteolytic lesion involving the T6 vertebral body has increased in size from 04/16/2021 and extends into the bilateral pedicles and facets at T6 and also within the adjacent T5 and T7 vertebral bodies and right posterior el ements of T7. Pathologic burst fracture at T6 with 4 mm anterolisthesis T6 on T7. Kyphotic curvature of the thoracic spine centered at this level. There is paravertebral edema with soft tissue extension into the central canal and neuroforamina at T5-T6 and T6-T7 bilaterally. There is suggestion of severe central canal stenosis with bilateral neural foraminal narrowing. CT ABDOMEN/PELVIS: There is no pneumatosis or pneumoperitoneum. The spleen is enlarged, 14.8 cm in length. Unremarkable pancreas and adrenal glands. Cholecystectomy. Biliary ductal dilation is similar to prior and likely postsurgical. Unremarkable appearance of the unenhanced liver which is suboptimally evaluated without the use of IV contrast. Indeterminate 3 cm intermediate density lesion of the interpolar left kidney wi th [place] of 23. This previously demonstrated cystic attenuation the prior study. No hydronephrosis. Unremarkable urinary bladder and uterus. No abdominal aortic aneurysm. Subcentimeter inguinal chain lymph nodes measure up to 9 mm on the left which are nonspecific. Fluid-filled slightly distended distal esophagus. There is no small bowel obstruction. Moderate to extensive fecal retention. Colonic diverticulosis. Normal appendix. Diastases recti with tiny fat filled periumbilical hernia. Subcutaneous edema of the right anterior abdominal wall. Mild generalized body wall edema. Infiltrative osteolytic lesions of the L4 and L5 vertebral bodies are redemonstrated. Pathologic burst fracture of the L4 vertebral body is noted with subacute appearing nondisplaced fracture extending into the left L4 pedicle. 4 mm retropulsion. The soft tissue component of the mass likely extends into the bilateral L4-L5 neural foramen. There is at least moderate to severe central canal stenosis at the L4 level. IMPRESSION: 1. Increased size of the patient's known osteolytic infiltrative lesion involving the T6 vertebral body, now with extension into the posterior elements and adjacent T6 and T7 vertebral bodies. There is a pathologic burst fracture of the T6 vertebral body with associated anterolisthesis, new from 04/16/2021. Soft tissue component of the mass results in associated central canal and neural foraminal narrowing as above. 2. Chronic osteolytic infiltrative lesions at L4 and L5 with pathologic L4 burst fracture extending into the posterior elements is also new from 04/16/2021. Soft tissue nodule of the lesion extends into the central canal and neural foramina with associated stenosis as above. 3. Constipation with moderate to extensive fecal retention. 4. No bowel obstruction or bowel wall thickening. 5. Indeterminate intermediate density 3 cm lesion of the interpolar left kidney favoring a complex cyst could be correlated with a nonemergent follow-up renal ultrasound. 6. Additional findings as above. ACT 112: Negative or not required by law. Electronically signed by: Rajeev Roblero M.D. 01/21/2022 6:01 PM Dictated:01/21/22 173 Transcribed: 01/21/22 173
--- NOTE | 2022-01-22 11:53 | Electrocardiogram Report ---
Test Reason : Blood Pressure : / mmHG Vent. Rate : 080 BPM Atrial Rate : 080 BPM P-R Int : 128 ms QRS Dur : 100 ms QT Int : 386 ms P-R-T Axes : 065 -25 060 degrees QTc Int : 445 ms Normal sinus rhythm Leftward axis Voltage criteria for left ventricular hypertrophy Abnormal ECG When compared with ECG of 17-SEP-2021 19:39, ST no longer depressed in Inferior leads Nonspecific T wave abnormality has replaced inverted T waves in Lateral leads Confirmed by Skinny Kinney ([id number]) on 01/22/2022 11:53:05 AM Referred By: REFERRED SELF Confirmed By:Skinny Kinney
--- NOTE | 2022-01-22 11:54 | Communication Note ---
Date of Service: January 22, 2022 Informed by patient's nurse and sap technical architect that patient's fistula is infiltrated and patient will need a dialysis catheter on the discussion with nephrology.They advised if I could talk with the patient. The patient Doesnt want the catheter. Says the Fistula is fine and the outpt HD staff are able to use it fine and wants to be discharged soon in a day or so to get there. Explained the risks of not receiving dialysis adequately and on time including debility and with which patient agrees and states that she will be fine. Informed sap technical architect. Who will be communicating with the federal mediator as well.
[2022-01-22] MEDS: METHADONE HCL 10 MG TAB PO SCH ×3 (12:30→22:53)
[2022-01-22] MEDS: CALCITONIN SALMON NA 200 IU/AC 3.7 ML BTL SCH (12:31)
[2022-01-22] MEDS: HEPARIN SOD (PORCINE) 1000 UNIT/ML IV SCH ×2 (14:03→14:05)
--- NOTE | 2022-01-22 14:23 | Hospitalist Progress Note ---
Date of Service January 22, 2022 Assessment & Plan (1) Osteomyelitis of left foot: (2) Ulcer of left midfoot: (3) Insulin dependent diabetes mellitus: (4) ESRD (end stage renal disease): Plan ASSESSMENT AND PLAN: This is a 56-year-old female who presents with severe back pain. 1. Severe back pain, metastatic neuroendocrine tumor, new lesions in T6 and L4. ER spoke with Hem Oncology, recommended Radiation Oncology and Spine Surgery consult. We will also consult pain management. The patient has a history of radiation treatment in the past, seemed to be not a candidate for chemotherapy. After receiving significant pain medication in the ER, currently, she was s omewhat slightly drowsy and also requiring oxygen. Close monitor. Later again requiring iv Dilaudid prn. 2. End-stage renal disease, Did not receive dialysis today due to infiltration of the fistula. Refusing catheter currently. 3. Mild hyperkalemia. We will place her on renal diet. Dialysis as per Nephro. 4. History of diabetes. She seems to be on Basaglar insulin 32 units daily and sliding scale. Place on Basaglar 20 units and sliding scale. Follow the blood sugars, follow the HbA1c levels. 5. Hypothyroidism. Continue Synthroid. 6. Constipation. Stool softeners. 7. renal cyst. Needs followup 8. Deep venous thrombosis prophylaxis: Heparin subcutaneously Dark stoolcheck a hemoglobin level. Obtain occult blood test CODE STATUS: Level 1 full code. Admission and Anticipated Discharge Date Admission Date: January 21, 2022 Subjective Patient seen at bedside. Patient complaining of back discomfort. Asked for pain medication states that nurse is bringing it. Otherwise patient also went to dialysis however patient noted to have an infiltration in the fistula site. Subsequently discussed with patient about receiving a catheter which nephrology recommended however patient has been refusing. Please see previous note. Otherwise mild nauseousness denies active chest pain melena hematochezia otherwise. Denies any overt shortness of breath. States she is waiting for therapy and wants to be discharged soon likely tomorrow Nurse noted darkish stool Review of Systems Constitutional: + malaise and + weakness Eyes: She denies any changes in vision. Ear, Nose, Mouth, Throat: She is noted no changes in hearing. Respiratory: no cough, no dyspnea, no dyspnea on exertion and no wheezing Cardiovascular: no dyspnea at rest, no palpitations and no syncope Gastrointestinal: no nausea, no vomiting and no diarrhea/loose stools Genitourinary: no dysuria and no difficulty urinating Musculoskeletal: See history of present illness. Neurologic: no paresthesia, no tremor(s) and no headache(s) Physical Exam Constitutional: WD/WN, vitals as above Lethargic Eyes: PERRL, conjunctivae normal, anicteric sclerae ENMT: Ears: no hearing impairment Respiratory: normal respiratory effort, lungs clear to auscultation Cardiovascular: RRR, no murmur, no edema Gastrointestinal (Abdomen): normal bowel sounds, soft, nontender, no hepatosplenomegaly Musculoskeletal: There is tenderness of the spinal processes of the thoracic spine and paraspinous musculature. Skin: no rashes, warm and dry Psychiatric: A+Ox3, euthymic affect Results & Data Results & Data ([facility]) Vital Signs (Past 12 Hours) Vital Signs Temp Pulse Pulse Pulse Resp BP BP 01/22/22 10:55 36.5 C 83 162/81 H 01/22/22 10:45 84 135/70 01/22/22 10:30 79 151/76 H 01/22/22 08:00 01/22/22 10:18 36.5 C 83 01/22/22 12:36 77 20 141/66 H 01/22/22 08:17 36.4 C L 75 18 125/71 01/22/22 06:26 01/22/22 03:00 36.3 C L 85 19 157/87 H Pulse Ox O2 Del Method O2 Flow Rate 01/22/22 10:55 01/22/22 10:45 01/22/22 10:30 01/22/22 08:00 Nasal Cannula 3 01/22/22 10:18 01/22/22 12:36 100 Nasal Cannula 4 01/22/22 08:17 99 Nasal Cannula 4 01/22/22 06:26 99 Nasal Cannula 3 01/22/22 03:00 97 Room Air Laboratory Results Short CBC 01/21/22 01/22/22 Range/Units 16:16 06:10 WBC 6.10 6.44 (4.8-10.8) K/ul Hgb 12.5 11.9 L (12.0-16.0) g/dl Hct 40.3 39.2 (34.1-44.9) % Plt Count 264 304 (130-400) K/uL BMP 01/21/22 01/22/22 16:16 06:10 Sodium 132 L 133 L Potassium 5.2 H 5.1 Chloride 90 L 94 L Carbon Dioxide 36 H 33 H BUN 62 H 67 H Creatinine 5.85 H* 5.95 H* Glucose 70 77 Calcium 11.9 H 11.9 H Liver Function 01/21/22 Range/Units 16:16 Total Bilirubin 0.7 (0.2-1.0) mg/dl AST 17 (13-39) U/L ALT 12 (7-52) U/L Alkaline Phosphatase 98 (34-104) U/L Albumin 3.9 (3.4-5.0) gm/dl
[2022-01-22 15:08] LABS: Hematocrit (blood only) 35.6 % (34.1-44.9); Hemoglobin 11.1 g/dl (12.0-16.0); Mean Corpuscular Hemoglobin 30.7 pg (25.0-34.0); Mean Corpuscular Hgb Conc 31.2 g/dL (32.0-36.0); Mean Corpuscular Volume 98.3 fL (80.0-100.0); Platelet Count 225 K/uL (130-400); RDW Coefficient of Variation 17.2 % (11.5-14.5); RDW Standard Deviation 61.4 fL (36.4-46.3); Red Blood Count 3.62 M/uL (3.93-5.22); White Blood Count 6.96 K/ul (4.8-10.8)
--- NOTE | 2022-01-22 16:24 | Nephrology Consultation ---
Date of Consultation January 22, 2022 Assessment & Plan (1) ESRD (end stage renal disease): last HD was 01/17; no viable dialysis access currently; not in emergent need but at risk to be in emergent need of tx next 24-48 hr -secure access in AM and do tx after that; NOT appropriate to d/c for OP HD w/ infiltrated AVF and having already missed 5 days of HD (2) Dialysis AV fistula malfunction: AVF infiltrated; possible it will need days or a week or more of rest >recommend tunneled dialysis catheter; she reluctantly agrees but states will accept this only if it can be done w/ her in sitting position; states she can't possibly lie flat for TDC placement d/t pain; advised her this would have to be d/w anesthesia and vasc surgery -d/w Dr Ordoñez who will make her NPO at [place] and check coags (not on AC but did have INR 1.2 this spring) -vascular surgery eval in AM first thing; I will contact vascular at that time (3) Hypoxia: new/ noted; relates in part to pain meds (4) Pathologic fracture of thoracic vertebrae: getting palliative XRT; complicates TDC placement History of Present Illness Reason for Consultation: ESRD Requesting Physician: Dr Orourke Attending Physician: Gary Ordoñez MD History of Present Illness 56 y/o F w/ NET and spinal mets and with ESRD whom I'm asked to see for dialysis needs was admitted w/ intractable /exacerbation of chronic back pain overnight and found to have pathologic burst fractures of thoracic and lumbar spine. She underwent urgent palliative radiation to T5-7 this AM and lumbar XRT this pm. PMH includes metastatic neuroendocrine tumor w/ spinal mets, DM2, chronic L foot wound/osteomyelitis, HTN, hypothryoid, chronic/severe pain related to cancer and to wounds. She dialyzes under my care at [facility] via an endovascular AVF which is quite challenging to cannulate and then to keep running on a normal day. After first XRT, the pt went to our acute dialysis unit at my direction for tx. Dialysis RNs were able to cannulate endovascular AVF but venous limb unfortunately infiltrated after only 20 minutes of tx. Placement of dialysis catheter was immediately recommended to pt but she declines this. She is requesting d/c home for OP f/u of routine dialysis tomorrow. She missed dialysis treatment on 01/19 d/t pain; her last tx was 01/17. She does not typically require oxygen and is currently on 4LNC> 3L later in day. Allergies Allergy/AdvReac Type Severity Reaction Status Date / Time Iodinated Contrast Media AdvReac Severe Patient Verified 09/24/21 07:36 has kidney failure omeprazole AdvReac Severe Increased Verified 09/24/21 07:36 her acid reflux Home Medications Medication Instructions Recorded Confirmed Type insulin aspart U-100 100 unit/mL 1 sliding scale dose subcut 03/15/21 10/24/21 History subcutaneous solution (Novolog USEASDIRECTD U-100 Insulin aspart) levothyroxine 125 mcg tablet 125 mcg PO DAILYBB 03/15/21 10/24/21 History docusate sodium 100 mg capsule 100 mg PO DAILY PRN Constipation 06/11/21 10/24/21 History (Colace) insulin NPH isoph U-100 human 100 30 unit subcut BID 06/11/21 10/24/21 History unit/mL (3 mL) subcutaneous pen (Humulin N NPH U-100 Insulin KwikPen) sevelamer carbonate 800 mg tablet 1,600 mg PO TIDM 07/30/21 10/24/21 History (Renvela) Lactobacillus acidoph-L.bulgaricus 1 tab PO BID #60 tabs 08/07/21 10/24/21 Rx 1 million cell chewable tablet (Lactinex) vitamin B complex-vitamin C-folic 1 tab PO DAILY 09/11/21 10/24/21 History acid 0.8 mg tablet (Ira-Umer) famotidine 20 mg tablet 20 mg PO BID #20 tabs 01/21/22 Rx hydromorphone 8 mg tablet 8 mg PO DAILY 01/21/22 01/21/22 History ondansetron 4 mg disintegrating 4 mg PO Q6H PRN nausea and 01/21/22 Rx tablet vomiting #14 tabs Patient History Medical History (Updated 01/22/22 @ 16:24 by Sharon Aleman MD, PhD) Acid reflux Amputation of right great toe Anemia Chronic narcotic dependence Diabetes Diabetic retinopathy ESRD (end stage renal disease) On dialysis H/O vocal cord paralysis Right side Hypertension MRSA bacteremia 2017; unclear if vertebral or R diabetic foot wound source Neuroendocrine tumor (12/05/19) Osteomyelitis of left foot chronic 2020 and 2021 Pneumonia (10/05/13) Radicular pain of thoracic region Retinal hemorrhage, right eye Sepsis Shortness of breath (10/05/13) Thyroid cancer Thyroid nodule Surgical History AVF (arteriovenous fistula) endovascular L; created 09/2020 H/O thyroidectomy Partial thyroidectomy History of cholecystectomy History of insertion of tunneled central venous catheter (CVC) with port History of surgery 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 Brother No problems noted. Sister Dialysis patient Kidney disease Daughter No problems noted. Daughter Diabetes Social History Smoking Status: Never smoker Second Hand Exposure: No; Hx Alcohol Use: No Hx Substance Use: No Preferred Language: Croatian Communication Ability: Effective Visual Impairment: No Limitations Hearing Ability: Normal Practice Director Required: No Beliefs That Will Affect Care: None marital status: Current Living Situation: Spouse Current Living Situation Comment: Home w/ current occupational status: disabled How many Children do You have: 2 Feels Safe at Home: Yes Safety Concerns: Feels Safe At This Time caffeine: No during the past year weight has: remained stable Assistive Devices: Bedside Commode, Walker and Wheelchair Review of Systems Review of Systems: All systems reviewed & are unremarkable except as noted in HPI & below Physical Exam Constitutional: well developed, well nourished (visibly thinner), + acute distress (mild distress/stiffness w/ pain) and cooperative Eyes: EOM intact bilaterally ENMT: Ears: no external ear abnormality Nose: no external nose abnormality Mouth: + dry oral mucous membranes Neck: no nuchal rigidity Respiratory: normal respiratory effort (but clearly limiting deep breaths d/t pain) Auscultation: + diminished lung sounds Cardiovascular: Rate/Rhythm: regular rate and regular rhythm Heart Sounds: no murmur Extremities: + edema (trace R ankle) and + AV fistula (indurated; + t/b deep) Gastrointestinal (Abdomen): Inspection/Auscultation: normal bowel sounds Percussion/Palpation: abdomen soft; abdomen nontender Musculoskeletal: Extremities: strength 5/5 throughout Ankle: + deformity (L ankle in cast/boot) Skin: no rashes, warm and dry Neurologic: rodriguez, fluent speech, no tremor Psychiatric: Orientation: oriented x 3 Speech: normal rate/rhythm/volume of speech Insight: good insight Judgement: + limited judgement Results & Data ([facility]) Vital Signs (Past 12 Hours) Vital Signs Temp Pulse Pulse Pulse Resp BP BP 01/22/22 10:55 36.5 C 83 162/81 H 01/22/22 10:45 84 135/70 01/22/22 10:30 79 151/76 H 01/22/22 08:00 01/22/22 10:18 36.5 C 83 01/22/22 12:36 77 20 141/66 H 01/22/22 08:17 36.4 C L 75 18 125/71 01/22/22 06:26 Pulse Ox O2 Del Method O2 Flow Rate 01/22/22 10:55 01/22/22 10:45 01/22/22 10:30 01/22/22 08:00 Nasal Cannula 3 01/22/22 10:18 01/22/22 12:36 100 Nasal Cannula 4 01/22/22 08:17 99 Nasal Cannula 4 01/22/22 06:26 99 Nasal Cannula 3 Laboratory Results 01/22/22 14:46 01/22/22 06:[address] c/a/p noncon CT chest diagnostic wo con, CT abd pelvis wo con CLINICAL HISTORY: 56 years-old Female with back pain, n/v. Acute chest and back pain with nausea and vomiting TECHNIQUE: Multiaxial CT images of the chest, abdomen and pelvis were performed without contrast. A dose lowering technique was utilized adhering to the principles of ALARA. COMPARISON: Chest CT 07/27/2017, CT chest, abdomen and pelvis 11/27/2019, PET CT 01/03/2020 and MRI lumbar spine 12/03/2020 (images only without accounting report). FINDINGS: CT CHEST: Unremarkable thyroid. No definitive lymphadenopathy. The heart is mildly enlarged with coronary artery calcifications. Mild distention of the fluid- filled esophagus. No pneumothorax, pleural effusion, overt pulmonary edema, suspicious pulmonary nodule or mass. Subsegmental bibasilar atelectasis. Indeterminate groundglass nodular opacity of the left upper lobe measuring 7 mm on image 84 appears new from the 2020 exam. Unremarkable soft tissues. Degenerative changes of the shoulders and spine. Infiltrative osteolytic lesion involving the T6 vertebral body has increased in size from 04/16/2021 and extends into the bilateral pedicles and facets at T6 and also within the adjacent T5 and T7 vertebral bodies and right posterior elements of T7. Pathologic burst fracture at T6 with 4 mm anterolisthesis T6 on T7. Kyphotic curvature of the thoracic spine centered at this level. There is paravertebral edema with soft tissue extension into the central canal and neuroforamina at T5-T6 and T6-T7 bilaterally. There is suggestion of severe central canal stenosis with bilateral neural foraminal narrowing. CT ABDOMEN/PELVIS: There is no pneumatosis or pneumoperitoneum. The spleen is enlarged, 14.8 cm in length. Unremarkable pancreas and adrenal glands. Cholecystectomy. Biliary du ctal dilation is similar to prior and likely postsurgical. Unremarkable appearance of the unenhanced liver which is suboptimally evaluated without the use of IV contrast. Indeterminate 3 cm intermediate density lesion of the interpolar left kidney with Hounsfield of 23. This previously demonstrated cystic attenuation the prior study. No hydronephrosis. Unremarkable urinary bladder and uterus. No abdominal aortic aneurysm. Subcentimeter inguinal chain lymph nodes measure up to 9 mm on the left which are nonspecific. Fluid-filled slightly distended distal esophagus. There is no small bowel obs truction. Moderate to extensive fecal retention. Colonic diverticulosis. Normal appendix. Diastases recti with tiny fat filled periumbilical hernia. Subcutaneous edema of the right anterior abdominal wall. Mild generalized body wall edema. Infiltrative osteolytic lesions of the L4 and L5 vertebral bodies are redemonstrated. Pathologic burst fracture of the L4 vertebral body is noted with subacute appearing nondisplaced fracture extending into the left L4 pedicle. 4 mm retropulsion. The soft tissue component of the mass likely extends into the bilateral L4-L5 neural foramen. There is at least moderate to severe central canal stenosis at the L4 level. IMPRESSION: 1. Increased size of the patient's known osteolytic infiltrative lesion involving the T6 vertebral body, now with extension into the posterior elements and adjacent T6 and T7 vertebral bodies. There is a pathologic burst fracture of the T6 vertebral body with associated anterolisthesis, new from 04/16/2021. Soft tissue component of the mass results in associated central canal and neural foraminal narrowing as above. 2. Chronic osteolytic infiltrative lesions at L4 and L5 with pathologic L4 burst fracture extending into the posterior elements is also new from 04/16/2021. Soft tissue nodule of the lesion extends into the central canal and neural foramina with associated stenosis as above. 3. Constipation with moderate to extensive fecal retention. 4. No bowel obstruction or bowel wall thickening. 5. Indeterminate intermediate density 3 cm lesion of the interpolar left kidney favoring a complex cyst could be correlated with a nonemergent follow-up renal ultrasound. 6. Additional findings as above.
[2022-01-22 18:35] LABS: Prothrombin Time 11.1 Seconds (9.0-12.0)
[2022-01-22] MEDS: ACETAMINOPHEN 325 MG TAB PO PRN (20:38)
[2022-01-23] MEDS: LEVOTHYROXINE SODIUM 125 MCG TABLET PO SCH (06:28)
[2022-01-23] MEDS: HEPARIN SOD 5,000 UNIT/0.5 ML VIAL SQ SCH ×3 (06:28→21:15)
[2022-01-23] MEDS: HYDROmorphone INJ 0.5 MG/0.5 ML SYR IV PRN ×3 (06:32→21:16)
[2022-01-23] MEDS ORDERED: SODIUM CHLORIDE 0.9% 1000ML 1,000 ML IV PRN (08:13)
[2022-01-23] MEDS: ACETAMINOPHEN 325 MG TAB PO PRN ×2 (08:21→16:18)
[2022-01-23 08:55] LABS: Hemoglobin 10.1 g/dl (12.0-16.0); Mean Corpuscular Hemoglobin 31.1 pg (25.0-34.0); Mean Corpuscular Hgb Conc 30.6 g/dL (32.0-36.0); Mean Corpuscular Volume 101.5 fL (80.0-100.0); Mean Platelet Volume 8.6 fL (9.4-12.3); Platelet Count 254 K/uL (130-400); RDW Coefficient of Variation 17.5 % (11.5-14.5); RDW Standard Deviation 65.2 fL (36.4-46.3); Red Blood Count 3.25 M/uL (3.93-5.22)
--- NOTE | 2022-01-23 08:55 | Consultation ---
Date of Consultation January 23, 2022 Assessment & Plan (1) Dialysis AV fistula malfunction: Pt with functioning LUE endovascular AVF, but with significant recent infiltration. Recommend rest AVF and place permcath. Procedure, risks, benefits and alternatives discussed with pt at Dr Strong's request. Pt is ag reeable to proceed. Due to fever will place temp today and permcath next week. Patient was seen, examined, and chart reviewed. Agree with exam and treatment plan of the Vascular PA. History of Present Illness Reason for Consultation: infiltrated LUE AVF, need permcath for HD Attending Physician: Gary Ordoñez MD History of Present Illness 56 yo f with multiple medical problems, including ESRD on HD, anemia, DMII, metastases to spine, neuroendocrine tumor, admitted with worsening back pain and found to have pathologic fractures, seen in consultation today to discuss permcath insertion after inpt HD infiltrated her AVF. Pt states she had the LUE endovascular AVF created at [facility] about 18 months ago, and has been using it since May [address] Strong performed balloon assisted maturation. Per pt, it has been functioning well as outpt without problems, but they had difficulty accessing it at inpt HD and caused significant infiltration. Pt will need to rest her AVF and have permcath inserted for HD. Has already missed 2-3 HD sessions. Pt admits severe back pain and grogginess d/t pain medication. Has ongoing orthopedic wounds in L foot d/t abscesses with osteomyelitis and follows with [facility]. Saw them earlier this week and states they were pleased with progress. Denies CHOW, fever, chest pain, SOB, abd pain, N/V, rest pain, claudication, other complaints. Pt has had at least 3 permcaths in past, some in Left IJ, some in Right IJ. No infusaport present. Allergies Allergy/AdvReac Type Severity Reaction Status Date / Time Iodinated Contrast Media AdvReac Severe Patient Verified 09/24/21 07:36 has kidney failure omeprazole AdvReac Severe Increased Verified 09/24/21 07:36 her acid reflux Home Medications Medication Instructions Recorded Confirmed Type insulin aspart U-100 100 unit/mL 1 sliding scale dose subcut 03/15/21 10/24/21 History subcutaneous solution (Novolog USEASDIRECTD U-100 Insulin aspart) levothyroxine 125 mcg tablet 125 mcg PO DAILYBB 03/15/21 10/24/21 History docusate sodium 100 mg capsule 100 mg PO DAILY PRN Constipation 06/11/21 10/24/21 History (Colace) insulin NPH isoph U-100 human 100 30 unit subcut BID 06/11/21 10/24/21 History unit/mL (3 mL) subcutaneous pen (Humulin N NPH U-100 Insulin KwikPen) sevelamer carbonate 800 mg tablet 1,600 mg PO TIDM 07/30/21 10/24/21 History (Renvela) Lactobacillus acidoph-L.bulgaricus 1 tab PO BID #60 tabs 08/07/21 10/24/21 Rx 1 million cell chewable tablet (Lactinex) vitamin B complex-vitamin C-folic 1 tab PO DAILY 09/11/21 10/24/21 History acid 0.8 mg tablet (Ira-Umer) famotidine 20 mg tablet 20 mg PO BID #20 tabs 01/21/22 Rx hydromorphone 8 mg tablet 8 mg PO DAILY 01/21/22 01/21/22 History ondansetron 4 mg disintegrating 4 mg PO Q6H PRN nausea and 01/21/22 Rx tablet vomiting #14 tabs Patient History Medical History Acid reflux Amputation of right great toe Anemia Chronic narcotic dependence Diabetes Diabetic retinopathy ESRD (end stage renal disease) On dialysis H/O vocal cord paralysis Right side Hypertension MRSA bacteremia 2017; unclear if vertebral or R diabetic foot wound source Neuroendocrine tumor (12/05/19) Osteomyelitis of left foot chronic 2020 and 2021 Pneumonia (10/05/13) Radicular pain of thoracic region Retinal hemorrhage, right eye Sepsis Shortness of breath (10/05/13) Thyroid cancer Thyroid nodule Surgical History AVF (arteriovenous fistula) endovascular L; created 09/2020 H/O thyroidectomy Partial thyroidectomy History of cholecystectomy History of insertion of tunneled central venous catheter (CVC) with port History of surgery 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 Brother No problems noted. Sister Dialysis patient Kidney disease Daughter No problems noted. Daughter Diabetes Social History Smoking Status: Never smoker Second Hand Exposure: No; Hx Alcohol Use: No Hx Substance Use: No Preferred Language: Niuean Communication Ability: Effective Visual Impairment: No Limitations Hearing Ability: Normal Film Tests Checker Required: No Beliefs That Will Affect Care: None marital status: Current Living Situation: Spouse Current Living Situation Comment: Home w/ current occupational status: disabled How many Children do You have: 2 Feels Safe at Home: Yes Safety Concerns: Feels Safe At This Time caffeine: No during the past year weight has: remained stable Assistive Devices: Bedside Commode, Walker and Wheelchair Review of Systems Review of Systems: All systems reviewed & are unremarkable except as noted in HPI & below Physical Exam Constitutional: WD/WN, vitals as above + ill appearing (chronically) and cooperative; not in distress Neck: trachea midline Respiratory: normal respiratory effort, lungs clear to auscultation Auscultation: + diminished lung sounds Cardiovascular: Rate/Rhythm: regular rate and regular rhythm Vessels: femoral pulses present, posterior tibial pulses present (+2 RLE, not eval LLE d/t op boot), dorsalis pedis pulses present (RLE +1, LLE not assessed d/t op boot) and radial pulses present; + abnormal peripheral pulses Extremities: normal capillary refill and + AV fistula (LUE AVF + thrill/bruit. +local ecchymosis) Gastrointestinal (Abdomen): Inspection/Auscultation: abdomen normal to inspection and normal bowel sounds Percussion/Palpation: abdomen soft; abdomen nontender Musculoskeletal: no cyanosis or clubbing, extremities motor strength 5/5 Skin: no rashes, warm and dry Neurologic: moves all extremities and awake; no focal motor deficits and not confused Psychiatric: Orientation: alert and oriented x 3 Eye Contact: good eye contact Affect: + blunted affect Results & Data ([facility]) Vital Signs (Past 12 Hours) Vital Signs Temp Pulse Resp BP Pulse Ox O2 Del Method O2 Flow Rate 01/23/22 08:38 38.8 C H 75 18 91/68 L 100 Room Air 01/23/22 00:00 37.2 C 74 18 141/74 H 100 Nasal Cannula 4 01/22/22 21:00 Nasal Cannula 2
[2022-01-23] MEDS ORDERED: ceFAZolin 1000MG 1,000 MG/7.5 ML SYR IV ONE (08:56)
[2022-01-23] MEDS ORDERED: PROPOFOL IV EMULSION 10 MG/ML 20 ML VIAL IV ONE (09:07)
[2022-01-23] MEDS ORDERED: MIDAZOLAM HCL 1 MG/ML 2ML VIAL ONE (09:07)
[2022-01-23] MEDS ORDERED: LIDOCAINE 2% MPF LOCAL 5 ML VIAL INFIL ONE (09:07)
[2022-01-23] MEDS ORDERED: ONDANSETRON INJ 2 MG/ML 2 ML VIAL ONE (09:07)
[2022-01-23] MEDS ORDERED: fentaNYL citrate 100 MCG/2 ML VIAL ONE (09:07)
[2022-01-23] MEDS: INSULIN ASPART PER UNIT SC SCH ×4 (09:10→21:21)
[2022-01-23 09:19] LABS: Calcium 11.3 mg/dl (8.5-10.1); Creatinine Clr Calc Pharmacy 10.5 ml/min; Est GFR (African American) 7.8 ml/min; Est GFR (Non-African American) 6.7 ml/min; Potassium 5.2 mmol/L (3.5-5.1)
[2022-01-23 09:32] LABS: Pregnancy Test, Serum Negative (Negative)
[2022-01-23] MEDS ORDERED: ONDANSETRON INJ 2 MG/ML 2 ML VIAL IV PRN (09:43)
[2022-01-23] MEDS ORDERED: ATROPINE SULFATE 0.1 MG/ML 10ML SYR IV PRN (09:43)
[2022-01-23] MEDS ORDERED: ePHEDrine sulfate 50 MG/ML AMP IV PRN (09:43)
[2022-01-23] MEDS ORDERED: HYDROmorphone INJ 1 MG/ML SYRINGE IV PRN (09:43)
--- NOTE | 2022-01-23 09:43 | Anesthesiology Consultation ---
Date of Service January 23, 2022 Assessment & Plan ASA ASA3 Proposed Anesthesia Anesthesia Type: General Risk / Benefits Reviewed With: PT / POA / Parent / Guardian, Accepts Plan and Informed Consent Obtained History Surgery Operation Date: 01/23/22 11:30 Proposed Procedures p Perm Catheter Placement - Rigo Strong MD Operation Date: 01/26/22 08:00 Proposed Procedures p Perm Catheter Placement - Rigo Strong MD Height/Weight Height: 5 ft 7 in Weight: 75 kg Allergies Allergy/AdvReac Type Severity Reaction Status Date / Time Iodinated Contrast Media AdvReac Severe Patient Verified 09/24/21 07:36 has kidney failure omeprazole AdvReac Severe Increased Verified 09/24/21 07:36 her acid reflux Medications Home Medications Medication Instructions Recorded Confirmed Last Taken insulin aspart U-100 100 unit/mL 1 sliding scale dose subcut 03/15/21 10/24/21 09/11/21 subcutaneous solution (Novolog USEASDIRECTD U-100 Insulin aspart) levothyroxine 125 mcg tablet 125 mcg PO DAILYBB 03/15/21 10/24/21 09/11/21 docusate sodium 100 mg capsule 100 mg PO DAILY PRN Constipation 06/11/21 10/24/21 09/11/21 (Colace) insulin NPH isoph U-100 human 100 30 unit subcut BID 06/11/21 10/24/21 09/11/21 unit/mL (3 mL) subcutaneous pen (Humulin N NPH U-100 Insulin KwikPen) sevelamer carbonate 800 mg tablet 1,600 mg PO TIDM 07/30/21 10/24/21 09/11/21 (Renvela) Lactobacillus acidoph-L.bulgaricus 1 tab PO BID #60 tabs 08/07/21 10/24/21 09/11/21 1 million cell chewable tablet (Lactinex) vitamin B complex-vitamin C-folic 1 tab PO DAILY 09/11/21 10/24/21 09/11/21 acid 0.8 mg tablet (Ira-Umer) famotidine 20 mg tablet 20 mg PO BID #20 tabs 01/21/22 Unknown hydromorphone 8 mg tablet 8 mg PO DAILY 01/21/22 01/21/22 Unknown ondansetron 4 mg disintegrating 4 mg PO Q6H PRN nausea and 01/21/22 Unknown tablet vomiting #14 tabs Active Medications Generic Name Dose Route Start Last Admin Trade Name Salvador PRN Reason Stop Dose Admin Acetaminophen 650 mg 01/21/22 23:13 01/23/22 08:21 Acetaminophen 325 Mg Tab PO 02/20/22 23:12 650 mg Q4H PRN Administration pain/fever Calcitonin [place] 1 sprays 01/22/22 09:00 01/22/22 12:31 Calcitonin [place] Na 200 Iu/Ac 3.7 Ml Btl NA 02/21/22 08:59 1 sprays DAILY KIRT Administration Heparin Sodium (Porcine) 5,000 units 01/22/22 06:00 01/23/22 06:28 Heparin Sod 5,000 Unit/0.5 Ml Vial SQ 02/21/22 05:59 5,000 units Q8 KIRT Administration Hydromorphone HCl 1 mg 01/22/22 01:44 01/23/22 06:32 Hydromorphone Inj 0.5 Mg/0.5 Ml Syr IV 02/05/22 00:20 1 mg Q3H PRN Administration Pain Insulin Aspart 0 units 01/22/22 07:30 01/23/22 09:10 Insulin Aspart Per Unit SC 02/21/22 07:29 Not Given ACHS KIRT Insulin Glargine 20 units 01/22/22 09:00 01/22/22 08:51 Lantus Per Unit Charge SQ 02/21/22 08:59 20 units DAILY KIRT Administration Lactobacillus Acidophilus 1 cap 01/22/22 09:00 01/22/22 20:36 Advanced Probiotic 1250 Mg Capsule PO 02/21/22 08:59 1 cap BID KIRT Administration Lactulose 30 gm 01/22/22 09:00 01/22/22 09:06 Lactulose Syrup 30 Gm/45 Ml Udp PO 02/21/22 08:59 Not Given DAILY KIRT Levothyroxine Sodium 125 mcg 01/22/22 06:30 01/23/22 06:28 Levothyroxine Sodium 125 Mcg Tablet PO 02/21/22 06:29 125 mcg DAILYBB KIRT Administration Methadone HCl 10 mg 01/22/22 09:00 01/22/22 22:53 Methadone Hcl 10 Mg Tab PO 02/05/22 08:59 10 mg TID KIRT Administration Ondansetron HCl 4 mg 01/21/22 23:13 01/22/22 17:57 Ondansetron Inj 2 Mg/Ml 2 Ml Vial IV 02/20/22 23:12 4 mg Q6H PRN Administration Nausea Sevelamer HCl 1,600 mg 01/22/22 08:00 01/22/22 17:16 Sevelamer Hcl 800 Mg Tablet PO 02/21/22 07:59 1,600 mg TIDM KIRT Administration Vitamin B Complex/Folic Acid 1 cap 01/22/22 09:00 01/22/22 08:53 Nephrocaps PO 02/21/22 08:59 1 cap DAILY KIRT Administration NPO Date Last Intake of Fluids: 01/23/22 Time Last Intake of Fluids: 08:30 Date Last Intake of Solids: 01/23/22 Time Last Intake of Solids: 00:00 Past Medical History Medical History Acid reflux Amputation of right great toe Anemia Chronic narcotic dependence Diabetes Diabetic retinopathy ESRD (end stage renal disease) On dialysis H/O vocal cord paralysis Right side Hypertension MRSA bacteremia 2017; unclear if vertebral or R diabetic foot wound source Neuroendocrine tumor (12/05/19) Osteomyelitis of left foot chronic 2020 and 2021 Pneumonia (10/05/13) Radicular pain of thoracic region Retinal hemorrhage, right eye Sepsis Shortness of breath (10/05/13) Thyroid cancer Thyroid nodule Exercise / Class Metabolic Activity II 4-5 Yardwork/Stairs/Walk up hill Past Family History Family History Mother , 70yo Valvular heart disease Diabetes Father , 74yo Pneumonia Diabetes Brother No problems noted. Brother No problems noted. Sister Dialysis patient Kidney disease Daughter No problems noted. Daughter Diabetes Past Surgical History Surgical History AVF (arteriovenous fistula) endovascular L; created 09/2020 H/O thyroidectomy Partial thyroidectomy History of cholecystectomy History of insertion of tunneled central venous catheter (CVC) with port History of surgery Surgery to removed benign tumor from right vocal cord; Hx of cataract surgery Bilateral Hx of tonsillectomy Previous section Past Anesthesia History No Hx of Anesthesia Complications and No Family Hx of Anesthesia Complications History of PONV No Hx of PONV and No Hx of Motion Sickness Social History Smoking Status: Never smoker Hx Alcohol Use: No Hx Substance Use: No Review of Systems denies fever/cough/ colds/ chest pain/ SOB/ ALAINA denies ALAINA Physical Exam Vital Signs Last Vital Signs Temp 38.8 C H 01/23/22 08:38 Pulse 75 01/23/22 08:38 Resp 18 01/23/22 08:38 BP 91/68 L 01/23/22 08:38 Pulse Ox 100 01/23/22 08:38 O2 Del Method 01/23/22 08:38 O2 Flow Rate 4 01/23/22 00:00 ENMT Mouth: no TMJ abnormality and no dentition abnormality Thyromental Distance: > or= 3.5 Finger Breadths Mallampati Class: II Neck neck extension not limited Respiratory normal respiratory effort; no respiratory distress Auscultation: lungs clear to auscultation bilaterally Cardiovascular Rate/Rhythm: regular rate and regular rhythm Neurologic moves all extremities Psychiatric Orientation: alert and oriented x 3 Testing Laboratory Results 01/23/22 08:30 01/23/22 08:30 PT 11.1 Seconds (9.0-12.0) 01/22/22 18:08 INR 1.0 (0.9-1.1) 01/22/22 18:08 Hemoglobin A1c 4.9 % (4.5-5.6) 01/22/22 06:10 01/23/22 09:05 POC Glucose 84
[2022-01-23] MEDS ORDERED: SODIUM CHLORIDE 0.9% 500 ML IV SCH (09:45)
[2022-01-23] MEDS ORDERED: HEPARIN SOD (PORCINE) 5,000 UNITS/ML VIAL ONE ×2 (10:00→10:13)
[2022-01-23] MEDS ORDERED: HEPARIN 100 UNIT/ML 5ML FLUSH ONE (10:13)
[2022-01-23] MEDS ORDERED: ePHEDrine sulfate 50 MG/ML AMP ONE (10:46)
--- NOTE | 2022-01-23 11:06 | Operative Report ---
Post Operative Report Pre & Post Diagnosis Operation Date: 01/23/22 11:30 Pre-Op Diagnosis: Malfunctioning Fistula Post-Op Diagnosis: Malfunctioning Fistula Operation Date: 01/26/22 08:00 <No data on this case meets the specified criteria> I identified the patient and participated in the time-out.: Yes Procedure Operation Date: 01/23/22 11:30 Actual Procedures p Insertion of Temporary Dialysis Catheter, Ultrasound Localization of Right Femoral Vein, Fluoroscopy for Positioning(Right) - Rigo Strong MD Operation Date: 01/26/22 08:00 <No data on this case meets the specified criteria> Surgeon Rigo Strong MD Operation Agent None Estimated Blood Loss 0 Findings Consistent with Post-Op Diagnosis Specimens none Anesthesia Type General Indications This is a 56-year-old female on dialysis via a left upper arm fistula. The fistula infiltrated. She is in need of dialysis. She was febrile this morning so a temporary femoral catheter was recommended. I have discussed the risks options and benefits of the procedure with the patient. The patient understands the risks options and benefits and agrees to the procedure. Description of Procedure Patient was taken to the angio suite and placed in the supine position. The right groin was prepped and draped in a sterile manner. The patient was identified and a timeout performed. Ultrasound was then used to locate the right common femoral vein. The vein compressed easily, had no filing defects, and was patent. The vein was then punctured under direct ultrasound imaging. A guidewire was then passed centrally under fluoroscopic imaging. The puncture site was then dilated. The 24 cm temporary dialysis catheter with a central port for IV infusion was then inserted. The tip of the catheter was in the iliac vena cava junction. The catheter was then sutured in place using nylon sutures. All ports aspirated and flushed easily and were then packed with heparin. A sterile dressing was applied to the catheter. The patient left the operation room in satisfactory condition and tolerated the procedure well. All needle and sponge counts were correct at the end of the procedure. I attest to the content of the Intraoperative Record and any orders documented therein. Any exceptions are noted below.
--- NOTE | 2022-01-23 11:34 | Anesthesiology Progress Note ---
Date of Service January 23, 2022 Anesthesia Post Procedure Vital Signs Vital Signs: Temp Pulse Resp BP Pulse Ox O2 Del Method O2 Flow Rate 01/23/22 09:05 36.7 C 74 18 151/53 H 100 Room Air 01/23/22 08:38 38.8 C H 75 18 91/68 L 100 Room Air 01/23/22 00:00 37.2 C 74 18 141/74 H 100 Nasal Cannula 4 01/22/22 21:00 Nasal Cannula 2 01/22/22 18:42 37.0 C 81 18 153/64 H 100 Nasal Cannula 3 01/22/22 16:45 36.4 C L 82 151/65 H 100 Nasal Cannula 4 01/22/22 12:36 77 20 141/66 H 100 Nasal Cannula 4 Pain Intensity Back: Pain Intensity: 6 Transfer of Care Handoff Completed per policy Notes Mental Status: alert / awake / arousable and participated in evaluation Patient Amnestic to Procedure: Yes Nausea / Vomiting: adequately controlled Pain: adequately controlled Airway Patency, RR, SpO2: stable & adequate BP & HR: stable & adequate Hydration State: stable & adequate Anesthetic Complications: no major complications apparent and Pt Satisfied with anesthetic care
[2022-01-23] MEDS: fentaNYL citrate 100 MCG/2 ML VIAL IV PRN ×2 (11:40→11:43)
--- NOTE | 2022-01-23 12:22 | XRay Report ---
XR chest 1V portable CLINICAL HISTORY: Fever TECHNIQUE: Single frontal radiograph of the chest was obtained. Comparison: Comparison is made to chest radiograph 04/25/[address] for radiation therapy 01/22/2022 FINDINGS: No lines and tubes are seen. Calcified aortic knob is seen. Atelectasis is seen in the left lower roya g. No evidence of pleural effusion or pneumothorax. Indistinctness of the T6 vertebral body is seen c ompatible with osteolytic lesion. IMPRESSION: No acute abnormalities and in particular no evidence of pneumonia. ACT 112: Negative or not required by law. Electronically signed by: Rm Flores M.D. 01/23/2022 12:20 PM
--- NOTE | 2022-01-23 12:36 | Pain Management Progress Note ---
Date of Service January 23, 2022 Assessment & Plan (1) Radicular pain of thoracic region: (2) Pathologic fracture of thoracic vertebrae: (3) ESRD (end stage renal disease): (4) Neuroendocrine tumor: (5) Metastatic disease: (6) Insulin dependent diabetes mellitus: Plan 1. Recommend maintaining methadone 10 mg 3 times daily 2. Continue with calcitonin spray 1 spray in 1 nostril daily with alternating nostrils 3. Patient will continue with hydromorphone 1 mg IV every 3 hours for as needed breakthrough pain. Consider dose reduction to hydromorphone 0.5 mg with any persisting difficulties with sedation. Subjective Mrs. Wilkins is a 56-year-old white female with known neuroendocrine cancer with metastatic disease and recent discovery of pathologic compression fracture of T6 vertebral body with thoracic back pain extending into the right posterior lateral and anterior chest wall. Methadone was resumed yesterday at 10 mg 3 times daily which is a slight increase from her chronic dose of 10 mg twice daily. Patient indicates she is tolerating the medication and reports that her pain is with improved control. She did utilize hydromorphone approximately 1 hour prior to today's visit which is contributing to some sedation. She has plan for surgical procedure today for placement of dialysis catheter per vascular surgery. She has not had dialysis since last Wednesday-01/17/2022. Her pain remains similar in location and characteristic as yesterday in the mid thoracic spinal region traveling to the right posterior lateral anterior chest wall. She indicates her pain is a 0-2/10 while sitting or lying supine. Her pain is aggravated with movement which can escalate to a 7-8/10. She denies any significant difference of sleep quality or quantity due to her pain. Patient did undergo radiation therapy yesterday and is planned for 10 sessions. Patient has no further constitutional complaints. Plan of care discussed with Dr. Salome Parks. Physical Exam Physical Exam: General: Patient was sleeping upon entering the room. She was easily arousable. She was somewhat sedate throughout the visit but cognition was intact. She is able to answer questions appropriately. Neurologic: Cranial nerves grossly intact. Ambulatory function not witnessed.
--- NOTE | 2022-01-23 12:50 | Hospitalist Progress Note ---
Date of Service January 23, 2022 Assessment & Plan (1) Osteomyelitis of left foot: (2) Ulcer of left midfoot: (3) Insulin dependent diabetes mellitus: (4) ESRD (end stage renal disease): Plan ASSESSMENT AND PLAN: This is a 56-year-old female who presents with severe back pain. 1. Severe back pain, metastatic neuroendocrine tumor, new lesions in T6 and L4. ER spoke with Hem Oncology, recommended Radiation Oncology and Spine Surgery consult. Awaiting orthopedics evaluation. 2. End-stage renal disease,catheter today with dialysis 3. Mild hyperkalemia. We will place her on renal diet. Dialysis as per Nephro. 4. History of diabetes. She seems to be on Basaglar insulin 32 units daily and sliding scale. Place on Basaglar 20 units and sliding scale. Follow the blood sugars, follow the HbA1c levels. 5. Hypothyroidism. Continue Synthroid. 6. Constipation. Stool softeners. 7. renal cyst. Needs followup 8. Deep venous thrombosis prophylaxis: Heparin subcutaneously Dark stoolcheck a hemoglobin level. Obtain occult blood test CODE STATUS: Level 1 full code. Admission and Anticipated Discharge Date Admission Date: January 21, 2022 Subjective Patient was getting ready to have the cath replaced today at the time of evaluation. Patient states pain is bit more controlled also. Denies active chest pain shortness of breath nausea vomiting. Attempted to contact Dr. Dean regarding any brace for the patient's back. No pickup on the phone. Sent a [place] text. Review of Systems Constitutional: + malaise and + weakness Eyes: She denies any changes in vision. Ear, Nose, Mouth, Throat: She is noted no changes in hearing. Respiratory: no cough, no dyspnea, no dyspnea on exertion and no wheezing Cardiovascular: no dyspnea at rest, no palpitations and no syncope Gastrointestinal: no nausea, no vomiting and no diarrhea/loose stools Genitourinary: no dysuria and no difficulty urinating Musculoskeletal: See history of present illness. Neurologic: no paresthesia, no tremor(s) and no headache(s) Physical Exam Constitutional: WD/WN, vitals as above Eyes: PERRL, conjunctivae normal, anicteric sclerae ENMT: Ears: no hearing impairment Respiratory: normal respiratory effort, lungs clear to auscultation Cardiovascular: RRR, no murmur, no edema Gastrointestinal (Abdomen): normal bowel sounds, soft, nontender, no hepatosplenomegaly Skin: no rashes, warm and dry Psychiatric: A+Ox3, euthymic affect Results & Data Results & Data ([facility]) Vital Signs (Past 12 Hours) Vital Signs Temp Pulse Pulse Resp BP Pulse Ox O2 Del Method 01/23/22 11:45 81 12 131/68 95 Nasal Cannula 01/23/22 11:25 87 16 149/64 H 96 Nasal Cannula 01/23/22 12:05 36.8 C 81 15 120/62 96 Nasal Cannula 01/23/22 11:55 36.8 C 82 12 124/56 L 96 Nasal Cannula 01/23/22 11:35 83 21 159/61 H 95 Nasal Cannula 01/23/22 11:15 86 20 159/89 H 99 Nasal Cannula 01/23/22 11:05 36.8 C 75 20 118/50 L 99 Nasal Cannula 01/23/22 09:05 36.7 C 74 18 151/53 H 100 Room Air 01/23/22 08:38 38.8 C H 75 18 91/68 L 100 Room Air O2 Flow Rate 01/23/22 11:45 4 01/23/22 11:25 5 01/23/22 12:05 2 01/23/22 11:55 2 01/23/22 11:35 4 01/23/22 11:15 5 01/23/22 11:05 5 01/23/22 09:05 01/23/22 08:38 Laboratory Results Short CBC 01/22/22 01/23/22 Range/Units 14:46 08:30 WBC 6.96 6.80 (4.8-10.8) K/ul Hgb 11.1 L 10.1 L (12.0-16.0) g/dl Hct 35.6 33.0 L (34.1-44.9) % Plt Count 225 254 (130-400) K/uL BMP 01/23/22 01/23/22 08:30 08:30 Sodium 128 L Potassium 5.2 H 5.2 H Chloride 93 L Carbon Dioxide 31 BUN 70 H Creatinine 6.38 H* D Glucose 70 Calcium 11.3 H Diagnostic Findings Chest X-Ray 01/23/22 08:17 XR chest 1V portable CLINICAL HISTORY: Fever TECHNIQUE: Single frontal radiograph of the chest was obtained. Comparison: Comparison is made to chest radiograph 04/25/[address] for radiation therapy 01/22/2022 FINDINGS: No lines and tubes are seen. Calcified aortic knob is seen. Atelectasis is seen in the left lower lung. No evidence of pleural effusion or pneumothorax. Indistinctness of the T6 vertebral body is seen compatible with osteolytic lesion. IMPRESSION: No acute abnormalities and in particular no evidence of pneumonia. ACT 112: Negative or not required by law. Electronically signed by: Rm Flores M.D. 01/23/2022 12:20 PM
[2022-01-23] MEDS: LANTUS PER UNIT CHARGE SQ SCH (12:53)
[2022-01-23] MEDS: SEVELAMER HCL 800 MG TABLET PO SCH ×3 (12:53→18:03)
[2022-01-23] MEDS: METHADONE HCL 10 MG TAB PO SCH ×3 (12:55→21:15)
--- NOTE | 2022-01-23 13:19 | Electrocardiogram Report ---
Test Reason : Blood Pressure : / mmHG Vent. Rate : 074 BPM Atrial Rate : 074 BPM P-R Int : 140 ms QRS Dur : 098 ms QT Int : 394 ms P-R-T Axes : 062 -21 039 degrees QTc Int : 437 ms Normal sinus rhythm Voltage criteria for left ventricular hypertrophy Abnormal ECG When compared with ECG of 21-JAN-2022 15:30, No significant change was found Confirmed by Skinny Kinney ([id number]) on 01/23/2022 1:18:51 PM Referred By: REFERRED SELF Confirmed By:Skinny Kinney
[2022-01-23] MEDS: ADVANCED PROBIOTIC 1250 MG CAPSULE PO SCH ×2 (17:39→21:15)
[2022-01-23] MEDS: LACTULOSE SYRUP 30 GM/45 ML UDP PO SCH (17:39)
[2022-01-23] MEDS: NEPHROCAPS PO SCH (17:39)
[2022-01-23] MEDS: CALCITONIN SALMON NA 200 IU/AC 3.7 ML BTL SCH (17:40)
--- NOTE | 2022-01-23 20:02 | Ultrasound Report ---
US hemodialysis access CLINICAL HISTORY: malfunction of left arm fistula COMPARISON STUDY: Ultrasound hemodialysis access 04/06/2021. FINDINGS: The brachial and cephalic veins are patent and demonstrate normal flow. The proximal radial artery is also patent. No significant stenosis or occlusion. IMPRESSION: Patent left upper extremity fistula. ACT 112: Negative or not required by law. Electronically signed by: Robson Nj M.D. 01/23/2022 8:00 PM
--- NOTE | 2022-01-23 20:10 | Nephrology Progress Note ---
Date of Service January 23, 2022 Assessment & Plan (1) ESRD (end stage renal disease): Plan: last HD was 01/17 until 01/23; temp R groin dialysis cath as dialysis access currently 01/23 -eval for repeat tx tomorrow (2) Dialysis AV fistula malfunction: Plan: endovascular AVF infiltrated; possible it will need days or a week or more of rest >recommend tunneled dialysis catheter on Wednesday and eval of EV AVF then too (3) Hypoxia: Plan: new/ noted; relates in part to pain meds; remains on 02nC (4) Pathologic fracture of thoracic vertebrae: Plan: getting palliative XRT; defer to primary service if special precautions needed w/ transfers, spine twists/position changes etc Admission and Anticipated Discharge Date Admission Date: January 21, 2022 Subjective pain better controleld today; was for TDC this am but transient F so got temp; feels improved in MS and berathing post HD tx Review of Systems Review of Systems: All systems reviewed & are unremarkable except as noted in Subjective Physical Exam Constitutional: well developed, well nourished (visibly thinner) and cooperative; no acute distress Eyes: EOM intact bilaterally ENMT: Ears: no external ear abnormality Nose: no external nose abnormality Mouth: + dry oral mucous membranes Neck: no nuchal rigidity Respiratory: normal respiratory effort (but clearly limiting deep breaths d/t pain) Auscultation: + diminished lung sounds Cardiovascular: Rate/Rhythm: regular rate and regular rhythm Heart Sounds: no murmur Extremities: + edema (trace R ankle) and + AV fistula (indurated; + t/b deep) Gastrointestinal (Abdomen): Inspection/Auscultation: normal bowel sounds Percussion/Palpation: abdomen soft; abdomen nontender Musculoskeletal: Extremities: strength 5/5 throughout Ankle: + deformity (L ankle in cast/boot) Skin: no rashes, warm and dry Psychiatric: Orientation: oriented x 3 Speech: normal rate/rhythm/volume of speech Insight: good insight Judgement: + limited judgement Results & Data ([facility]) Vital Signs (Past 12 Hours) Vital Signs Temp Pulse Pulse Pulse Pulse Resp BP 01/23/22 18:36 01/23/22 17:00 82 112/50 L 01/23/22 16:30 82 99/76 L 01/23/22 16:00 82 105/65 01/23/22 17:10 37.0 C 77 01/23/22 15:30 85 126/53 L 01/23/22 15:00 79 111/57 L 01/23/22 14:30 61 97/76 L 01/23/22 14:00 49 L 146/117 H 01/23/22 13:45 77 119/57 L 01/23/22 13:39 73 94/72 L 01/23/22 13:25 36.9 C 73 01/23/22 11:45 81 12 01/23/22 11:25 87 16 01/23/22 12:05 36.8 C 81 15 01/23/22 11:55 36.8 C 82 12 01/23/22 11:35 83 21 01/23/22 11:15 86 20 01/23/22 11:05 36.8 C 75 20 01/23/22 09:05 36.7 C 74 18 01/23/22 08:38 38.8 C H 75 18 BP Pulse Ox O2 Del Method O2 Flow Rate 01/23/22 18:36 3 01/23/22 17:00 01/23/22 16:30 01/23/22 16:00 01/23/22 17:10 107/60 01/23/22 15:30 01/23/22 15:00 01/23/22 14:30 01/23/22 14:00 01/23/22 13:45 01/23/22 13:39 01/23/22 13:25 01/23/22 11:45 131/68 95 Nasal Cannula 4 01/23/22 11:25 149/64 H 96 Nasal Cannula 5 01/23/22 12:05 120/62 96 Nasal Cannula 2 01/23/22 11:55 124/56 L 96 Nasal Cannula 2 01/23/22 11:35 159/61 H 95 Nasal Cannula 4 01/23/22 11:15 159/89 H 99 Nasal Cannula 5 01/23/22 11:05 118/50 L 99 Nasal Cannula 5 01/23/22 09:05 151/53 H 100 Room Air 01/23/22 08:38 91/68 L 100 Room Air Laboratory Results 01/23/22 08:30 01/23/22 08:30
[2022-01-24] MEDS: HYDROmorphone INJ 0.5 MG/0.5 ML SYR IV PRN ×5 (01:44→21:46)
[2022-01-24 03:52] LABS: Appearance Urine Clear (Clear); Bacteria Urine Automated Negative (Negative); Bilirubin Urine Negative (Negative); Blood Urine Negative (Negative); Color Urine Yellow; Epithelial Cell Urine Auto >30 /lpf (0-5); Glucose Urine UA Trace (Negative); Ketones Urine Negative (Negative); Leukocyte Esterase Urine Negative (Negative); Nitrite Urine Negative (Negative); Specific Gravity Urine 1.014 (1.000-1.030); Urobilinogen Urine Negative (Negative); pH Urine 8.5 (4.5-7.5)
[2022-01-24 03:57] LABS: Protein Urine 3+ (Negative)
[2022-01-24] MEDS: HEPARIN SOD 5,000 UNIT/0.5 ML VIAL SQ SCH ×3 (06:23→21:46)
[2022-01-24] MEDS: LEVOTHYROXINE SODIUM 125 MCG TABLET PO SCH (06:24)
[2022-01-24 08:09] LABS: Calcium 10.2 mg/dl (8.5-10.1); Creatinine Clr Calc Pharmacy 16.2 ml/min; Est GFR (African American) 12.4 ml/min; Est GFR (Non-African American) 10.7 ml/min; Potassium 4.3 mmol/L (3.5-5.1)
[2022-01-24] MEDS ORDERED: SODIUM CHLORIDE 0.9% 1000ML 1,000 ML IV PRN (08:11)
--- NOTE | 2022-01-24 08:17 | Orthopedic Consultation ---
Date of Consultation January 24, 2022 Assessment & Plan (1) Pathologic fracture of thoracic vertebrae: Assessment T6 burst fracture secondary to metastasis. Plan at this time we would like to obtain better imaging for assessment. I am concerned that she is a very poor surgical candidate. If she does not respond to radiation therapy regarding pain control I recommend considering tertiary care for possible surgical stabilization. History of Present Illness Reason for Consultation: Thoracic back pain with history of metastasis Attending Physician: Gary Ordoñez MD History of Present Illness This is a 56-year-old female with multiple medical issues that presents with worsening thoracic back pain. She does have known metastasis to the C6 region. This morning she states the pain is quite incapacitating. She said 1 treatment with radiation. She denies any lower extremity strength deficits numbness or tingling. She does describe some numbness and tingling in bilateral extremities. This is been present for some time. She had treatment for her lumbar fracture in the past and states this was very successful with radiation. She is not had any surgery. Allergies Allergy/AdvReac Type Severity Reaction Status Date / Time Iodinated Contrast Media AdvReac Severe Patient Verified 09/24/21 07:36 has kidney failure omeprazole AdvReac Severe Increased Verified 09/24/21 07:36 her acid reflux Home Medications Medication Instructions Recorded Confirmed Type insulin aspart U-100 100 unit/mL 1 sliding scale dose subcut 03/15/21 10/24/21 History subcutaneous solution (Novolog USEASDIRECTD U-100 Insulin aspart) levothyroxine 125 mcg tablet 125 mcg PO DAILYBB 03/15/21 10/24/21 History docusate sodium 100 mg capsule 100 mg PO DAILY PRN Constipation 06/11/21 10/24/21 History (Colace) insulin NPH isoph U-100 human 100 30 unit subcut BID 06/11/21 10/24/21 History unit/mL (3 mL) subcutaneous pen (Humulin N NPH U-100 Insulin KwikPen) sevelamer carbonate 800 mg tablet 1,600 mg PO TIDM 07/30/21 10/24/21 History (Renvela) Lactobacillus acidoph-L.bulgaricus 1 tab PO BID #60 tabs 08/07/21 10/24/21 Rx 1 million cell chewable tablet (Lactinex) vitamin B complex-vitamin C-folic 1 tab PO DAILY 09/11/21 10/24/21 History acid 0.8 mg tablet (Ira-Umer) famotidine 20 mg tablet 20 mg PO BID #20 tabs 01/21/22 Rx hydromorphone 8 mg tablet 8 mg PO DAILY 01/21/22 01/21/22 History ondansetron 4 mg disintegrating 4 mg PO Q6H PRN nausea and 01/21/22 Rx tablet vomiting #14 tabs Patient History Medical History Acid reflux Amputation of right great toe Anemia Chronic narcotic dependence Diabetes Diabetic retinopathy ESRD (end stage renal disease) On dialysis H/O vocal cord paralysis Right side Hypertension MRSA bacteremia 2017; unclear if vertebral or R diabetic foot wound source Neuroendocrine tumor (12/05/19) Osteomyelitis of left foot chronic 2020 and 2021 Pneumonia (10/05/13) Radicular pain of thoracic region Retinal hemorrhage, right eye Sepsis Shortness of breath (10/05/13) Thyroid cancer Thyroid nodule Surgical History AVF (arteriovenous fistula) endovascular L; created 09/2020 H/O thyroidectomy Partial thyroidectomy History of cholecystectomy History of insertion of tunneled central venous catheter (CVC) with port History of surgery 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 Brother No problems noted. Sister Dialysis patient Kidney disease Daughter No problems noted. Daughter Diabetes Social History Smoking Status: Never smoker Second Hand Exposure: No; Hx Alcohol Use: No Hx Substance Use: No Preferred Language: Chinese Communication Ability: Effective Visual Impairment: No Limitations Hearing Ability: Normal Bead Preparer Required: No Beliefs That Will Affect Care: None marital status: Current Living Situation: Spouse Current Living Situation Comment: Home w/ current occupational status: disabled How many Children do You have: 2 Feels Safe at Home: Yes Safety Concerns: Feels Safe At This Time caffeine: No during the past year weight has: remained stable Assistive Devices: Bedside Commode, Walker and Wheelchair Physical Exam Physical Exam: On exam she sitting up in bed. She is neurologically intact. Results & Data ([facility]) Vital Signs (Past 12 Hours) Vital Signs Temp Pulse Pulse Resp BP Pulse Ox O2 Del Method 01/24/22 07:39 36.9 C 83 18 166/78 H 96 Room Air 01/23/22 23:19 36.7 C 85 18 150/66 H 93 Room Air 01/23/22 21:04 36.9 C 81 126/73 96 Room Air
[2022-01-24] MEDS ORDERED: HEPARIN SOD (PORCINE) 1000 UNIT/ML IV SCH (08:30)
[2022-01-24] MEDS: CALCITONIN SALMON NA 200 IU/AC 3.7 ML BTL SCH (10:06)
[2022-01-24] MEDS: SEVELAMER HCL 800 MG TABLET PO SCH ×3 (10:07→18:13)
[2022-01-24] MEDS: NEPHROCAPS PO SCH (10:07)
[2022-01-24] MEDS: ADVANCED PROBIOTIC 1250 MG CAPSULE PO SCH ×2 (10:07→21:46)
[2022-01-24] MEDS: LACTULOSE SYRUP 30 GM/45 ML UDP PO SCH (10:09)
[2022-01-24] MEDS: METHADONE HCL 10 MG TAB PO SCH ×3 (10:19→21:46)
[2022-01-24] MEDS: INSULIN ASPART PER UNIT SC SCH ×4 (10:19→21:47)
[2022-01-24] MEDS: LANTUS PER UNIT CHARGE SQ SCH (10:20)
--- NOTE | 2022-01-24 12:27 | Hospitalist Progress Note ---
Date of Service January 24, 2022 Assessment & Plan (1) Insulin dependent diabetes mellitus: (2) ESRD (end stage renal disease): (3) Intractable back pain: Plan ASSESSMENT AND PLAN: This is a 56-year-old female who presents with severe back pain. 1. Severe back pain, metastatic neuroendocrine tumor, new lesions in T6 and L4. ER spoke with Hem Oncology, recommended Radiation Oncology. Awaiting orthopedics evaluation.Ordered a CAT scan of the back. Palliative evaluation. 2. End-stage renal disease,catheter today with dialysis 3. Mild hyperkalemia. We will place her on renal diet. Dialysis as per Nephro. 4. History of diabetes. She seems to be on Basaglar insulin 32 units daily and sliding scale. Place on Basaglar 20 units and sliding scale. Follow the blood sugars, follow the HbA1c levels. 5. Hypothyroidism. Continue Synthroid. 6. Constipation. Stool softeners. 7. renal cyst. Needs followup 8. Deep venous thrombosis prophylaxis: Heparin subcutaneously Dark stoolcheck a hemoglobin level. Obtain occult blood test CODE STATUS: Level 1 full code. Admission and Anticipated Discharge Date Admission Date: January 21, 2022 Subjective Patient received a dialysis catheter yesterday. Received dialysis. States she is feeling mildly better. The back pain is still not improved. Receive therapy radiation session. Patient seen by orthopedics and she is unable to lay flat for the MRI and orthopedics will be ordering a CAT scan of her spine. Review of Systems Constitutional: + malaise and + weakness Eyes: She denies any changes in vision. Ear, Nose, Mouth, Throat: She is noted no changes in hearing. Respiratory: no cough, no dyspnea, no dyspnea on exertion and no wheezing Cardiovascular: no dyspnea at rest, no palpitations and no syncope Gastrointestinal: no nausea, no vomiting and no diarrhea/loose stools Genitourinary: no dysuria and no difficulty urinating Musculoskeletal: See history of present illness. Neurologic: no paresthesia, no tremor(s) and no headache(s) Physical Exam Constitutional: WD/WN, vitals as above Eyes: PERRL, conjunctivae normal, anicteric sclerae ENMT: Ears: no hearing impairment Respiratory: normal respiratory effort, lungs clear to auscultation Cardiovascular: RRR, no murmur, no edema Gastrointestinal (Abdomen): normal bowel sounds, soft, nontender, no hepatosplenomegaly Skin: no rashes, warm and dry Psychiatric: A+Ox3, euthymic affect Results & Data Results & Data ([facility]) Vital Signs (Past 12 Hours) Vital Signs Temp Pulse Pulse Pulse Resp BP BP 01/24/22 11:30 85 111/45 L 01/24/22 11:00 82 166/73 H 01/24/22 10:40 36.9 C 85 01/24/22 07:39 36.9 C 83 18 166/78 H Pulse Ox O2 Del Method 01/24/22 11:30 01/24/22 11:00 01/24/22 10:40 01/24/22 07:39 96 Room Air Laboratory Results Laboratory Results WBC 6.80 K/ul (4.8-10.8) 01/23/22 08:30 RBC 3.25 M/uL (3.93-5.22) L 01/23/22 08:30 Hgb 10.1 g/dl (12.0-16.0) L 01/23/22 08:30 Hct 33.0 % (34.1-44.9) L 01/23/22 08:30 MCV 101.5 fL (80.0-100.0) H 01/23/22 08:30 MCH 31.1 pg (25.0-34.0) 01/23/22 08:30 MCHC 30.6 g/dL (32.0-36.0) L 01/23/22 08:30 RDW Std Deviation 65.2 fL (36.4-46.3) H 01/23/22 08:30 RDW Coeff of Padmini 17.5 % (11.5-14.5) H 01/23/22 08:30 Plt Count 254 K/uL (130-400) 01/23/22 08:30 MPV 8.6 fL (9.4-12.3) L 01/23/22 08:30 Immature Gran % (Auto) 0.3 % 01/22/22 06:10 Neut % (Auto) 71.5 % 01/22/22 06:10 Lymph % (Auto) 19.1 % 01/22/22 06:10 [place] % (Auto) 7.1 % 01/22/22 06:10 Eos % (Auto) 1.7 % 01/22/22 06:10 Baso % (Auto) 0.3 % 01/22/22 06:10 Neut # (Auto) 4.60 K/uL (1.4-6.5) 01/22/22 06:10 Lymph # (Auto) 1.23 K/uL (1.2-3.4) 01/22/22 06:10 [place] # (Auto) 0.46 K/uL (0.24-0.82) 01/22/22 06:10 Eos # (Auto) 0.11 K/uL (0-0.50) 01/22/22 06:10 Baso # (Auto) 0.02 K/uL (0-0.2) 01/22/22 06:10 Immature Gran # (Auto) 0.02 K/uL (0.00-0.02) 01/22/22 06:10 PT 11.1 Seconds (9.0-12.0) 01/22/22 18:08 INR 1.0 (0.9-1.1) 01/22/22 18:08 Sodium 131 mmol/L (136-145) L 01/24/22 06:40 Potassium 4.3 mmol/L (3.5-5.1) 01/24/22 06:40 Chloride 97 mmol/L (98-107) L 01/24/22 06:40 Carbon Dioxide 31 mmol/L (21-32) 01/24/22 06:40 Anion Gap 3 (3-11) 01/24/22 06:40 BUN 39 mg/dl (6-23) H D 01/24/22 06:40 Creatinine 4.35 mg/dl (0.6-1.2) H D 01/24/22 06:40 Est Cr Clr Drug Dosing 16.2 ml/min 01/24/22 06:40 Est GFR ( Amer) 12.4 ml/min 01/24/22 06:40 Est GFR (Non-Af Amer) 10.7 ml/min 01/24/22 06:40 BUN/Creatinine Ratio 9.0 (10-20) L 01/24/22 06:40 Glucose 135 mg/dl (70-99(Fasting)) H 01/24/22 06:40 POC Glucose 134 mg/dl (70-99) H 01/24/22 07:31 Estimat Average Glucose 94 mg/dl 01/22/22 06:10 Hemoglobin A1c 4.9 % (4.5-5.6) 01/22/22 06:10 Lactate 0.5 mmol/L (0.4-2.0) 01/23/22 08:30 Calcium 10.2 mg/dl (8.5-10.1) H 01/24/22 06:40 Magnesium 7.9 mg/dl (1.7-2.4) H* 01/22/22 06:10 Total Bilirubin 0.7 mg/dl (0.2-1.0) 01/21/22 16:16 AST 17 U/L (13-39) 01/21/22 16:16 ALT 12 U/L (7-52) 01/21/22 16:16 Alkaline Phosphatase 98 U/L (34-104) 01/21/22 16:16 Troponin I High Sens 5.0 pg/ml (0-14) 01/21/22 16:16 Total Protein 10.3 gm/dl (6.0-8.3) H 01/21/22 16:16 Albumin 3.9 gm/dl (3.4-5.0) 01/21/22 16:16 Globulin 6.4 gm/dl (2.5-4.0) H 01/21/22 16:16 Albumin/Globulin Ratio 0.6 (0.9-2) L 01/21/22 16:16 Lipase 13 U/L (11-82) 01/21/22 16:16 HCG, Qual Negative (Negative) 01/23/22 08:46 Urine Color Yellow 01/24/22 03:30 Urine Appearance Clear (Clear) 01/24/22 03:30 Urine pH 8.5 (4.5-7.5) H 01/24/22 03:30 Ur Specific [place] 1.014 (1.000-1.030) 01/24/22 03:30 Urine Protein 3+ (Negative) H 01/24/22 03:30 Urine Glucose (UA) Trace (Negative) H 01/24/22 03:30 Urine Ketones Negative (Negative) 01/24/22 03:30 Urine Blood Negative (Negative) 01/24/22 03:30 Urine Nitrite Negative (Negative) 01/24/22 03:30 Urine Bilirubin Negative (Negative) 01/24/22 03:30 Urine Urobilinogen Negative (Negative) 01/24/22 03:30 Ur Leukocyte Esterase Negative (Negative) 01/24/22 03:30 Urine WBC (Auto) 1-5 /hpf (0-5) 01/24/22 03:30 Urine RBC (Auto) 5-10 /hpf (0-4) H 01/24/22 03:30 U Hyaline Cast (Auto) 1-5 /lpf (0-5) 01/24/22 03:30 U Epithel Cells (Auto) >30 /lpf (0-5) H 01/24/22 03:30 Urine Bacteria (Auto) Negative (Negative) 01/24/22 03:30 Stool Occult Bld Scrn Negative (Negative) 01/22/22 16:00 SARS-CoV-2, RNA, NAAT NEGATIVE (NEGATIVE) 01/21/22 15:35 Impressions Abdomen/Pelvis CT 01/21/22 15:04 CT chest diagnostic wo con, CT abd pelvis wo con CLINICAL HISTORY: 56 years-old Female with back pain, n/v. Acute chest and back pain with nausea and vomiting TECHNIQUE: Multiaxial CT images of the chest, abdomen and pelvis were performed without contrast. A dose lowering technique was utilized adhering to the principles of ALARA. COMPARISON: Chest CT 07/27/2017, CT chest, abdomen and pelvis 11/27/2019, PET CT 01/03/2020 and MRI lumbar spine 12/03/2020 (images only without accounting report). FINDINGS: CT CHEST: Unremarkable thyroid. No definitive lymphadenopathy. The heart is mildly enlarged with coronary artery calcifications. Mild distention of the fluid- filled esophagus. No pneumothorax, pleural effusion, overt pulmonary edema, suspicious pulmonary nodule or mass. Subsegmental bibasilar atelectasis. Indeterminate groundglass nodular opacity of the left upper lobe measuring 7 mm on image 84 appears new from the 2020 exam. Unremarkable soft tissues. Degenerative changes of the shoulders and spine. Infiltrative osteolytic lesion involving the T6 vertebral body has increased in size from 04/16/2021 and extends into the bilateral pedicles and facets at T6 and also within the adjacent T5 and T7 vertebral bodies and right posterior elements of T7. Pathologic burst fracture at T6 with 4 mm anterolisthesis T6 on T7. Kyphotic curvature of the thoracic spine centered at this level. There is paravertebral edema with soft tissue extension into the central canal and neuroforamina at T5-T6 and T6-T7 bilaterally. There is suggestion of severe central canal stenosis with bilateral neural foraminal narrowing. CT ABDOMEN/PELVIS: There is no pneumatosis or pneumoperitoneum. The spleen is enlarged, 14.8 cm in length. Unremarkable pancreas and adrenal glands. Cholecystectomy. Biliary ductal dilation is similar to prior and likely postsurgical. Unremarkable appearance of the unenhanced liver which is suboptimally evaluated without the use of IV contrast. Indeterminate 3 cm intermediate density lesion of the interpolar left kidney with [place] of 23. This previously demonstrated cystic attenuation the prior study. No hydronephrosis. Unremarkable urinary bladder and uterus. No abdominal aortic aneurysm. Subcentimeter inguinal chain lymph nodes measure up to 9 mm on the left which are nonspecific. Fluid-filled slightly distended distal esophagus. There is no small bowel obstruction. Moderate to extensive fecal retention. Colonic diverticulosis. Normal appendix. Diastases recti with tiny fat filled periumbilical hernia. Subcutaneous edema of the right anterior abdominal wall. Mild generalized body wall edema. Infiltrative osteolytic lesions of the L4 and L5 vertebral bodies are redemonstrated. Pathologic burst fracture of the L4 vertebral body is noted with subacute appearing nondisplaced fracture extending into the left L4 pedicle. 4 mm retropulsion. The soft tissue component of the mass likely extends into the bilateral L4-L5 neural foramen. There is at least moderate to severe central canal stenosis at the L4 level. IMPRESSION: 1. Increased size of the patient's known osteolytic infiltrative lesion involving the T6 vertebral body, now with extension into the posterior elements and adjacent T6 and T7 vertebral bodies. There is a pathologic burst fracture of the T6 vertebral body with associated anterolisthesis, new from 04/16/2021. Soft tissue component of the mass results in associated central canal and neural foraminal narrowing as above. 2. Chronic osteolytic infiltrative lesions at L4 and L5 with pathologic L4 burst fracture extending into the posterior elements is also new from 04/16/2021. Soft tissue nodule of the lesion extends into the central canal and neural foramina with associated stenosis as above. 3. Constipation with moderate to extensive fecal retention. 4. No bowel obstruction or bowel wall thickening. 5. Indeterminate intermediate density 3 cm lesion of the interpolar left kidney favoring a complex cyst could be correlated with a nonemergent follow-up renal ultrasound. 6. Additional findings as above. ACT 112: Negative or not required by law. Electronically signed by: Rajeev Roblero M.D. 01/21/2022 6:[address] 01/21/22 15:04 CT chest diagnostic wo con, CT abd pelvis wo con CLINICAL HISTORY: 56 years-old Female with back pain, n/v. Acute chest and back pain with nausea and vomiting TECHNIQUE: Multiaxial CT images of the chest, abdomen and pelvis were performed without contrast. A dose lowering technique was utilized adhering to the principles of ALARA. COMPARISON: Chest CT 07/27/2017, CT chest, abdomen and pelvis 11/27/2019, PET CT 01/03/2020 and MRI lumbar spine 12/03/2020 (images only without accounting report). FINDINGS: CT CHEST: Unremarkable thyroid. No definitive lymphadenopathy. The heart is mildly enlarged with coronary artery calcifications. Mild distention of the fluid- filled esophagus. No pneumothorax, pleural effusion, overt pulmonary edema, suspicious pulmonary nodule or mass. Subsegmental bibasilar atelectasis. Indeterminate groundglass nodular opacity of the left upper lobe measuring 7 mm on image 84 appears new from the 2020 exam. Unremarkable soft tissues. Degenerative changes of the shoulders and spine. Infiltrative osteolytic lesion involving the T6 vertebral body has increased in size from 04/16/2021 and extends into the bilateral pedicles and facets at T6 and also within the adjacent T5 and T7 vertebral bodies and right posterior elements of T7. Pathologic burst fracture at T6 with 4 mm anterolisthesis T6 on T7. Kyphotic curvature of the thoracic spine centered at this level. There is paravertebral edema with soft tissue extension into the central canal and neuroforamina at T5-T6 and T6-T7 bilaterally. There is suggestion of severe c entral canal stenosis with bilateral neural foraminal narrowing. CT ABDOMEN/PELVIS: There is no pneumatosis or pneumoperitoneum. The spleen is enlarged, 14.8 cm in length. Unremarkable pancreas and adrenal glands. Cholecystectomy. Biliary ductal dilation is similar to prior and likely postsurgical. Unremarkable appearance of the unenhanced liver which is suboptimally evaluated without the use of IV contrast. Indeterminate 3 cm intermediate density lesion of the interpolar left kidney with [place] of 23. This previously demonstrated cystic attenuation the prior study. No hydronephrosis. Unremarkable urinary bladder and uterus. No abdominal aortic aneurysm. Subcentimeter inguinal chain lymph nodes measure up to 9 mm on the left which are nonspecific. Fluid-filled slightly distended distal esophagus. There is no small bowel obstruction. Moderate to extensive fecal retention. Colonic diverticulosis. Normal appendix. Diastases recti with tiny fat filled periumbilical hernia. Subcutaneous edema of the right anterior abdominal wall. Mild generalized body wall edema. Infiltrative osteolytic lesions of the L4 and L5 vertebral bodies are redemonstrated. Pathologic burst fracture of the L4 vertebral body is noted with subacute appearing nondisplaced fracture extending into the left L4 pedicle. 4 mm retropulsion. The soft tissue component of the mass likely extends into the bilateral L4-L5 neural foramen. There is at least moderate to severe central canal stenosis at the L4 level. IMPRESSION: 1. Increased size of the patient's known osteolytic infiltrative lesion involvin g the T6 vertebral body, now with extension into the posterior elements and adjacent T6 and T7 vertebral bodies. There is a pathologic burst fracture of the T6 vertebral body with associated anterolisthesis, new from 04/16/2021. Soft tissue component of the mass results in associated central canal and neural foraminal narrowing as above. 2. Chronic osteolytic infiltrative lesions at L4 and L5 with pathologic L4 burst fracture extending into the posterior elements is also new from 04/16/2021. Soft tissue nodule of the lesion extends into the central canal and neural foramina with associated stenosis as above. 3. Constipation with moderate to extensive fecal retention. 4. No bowel obstruction or bowel wall thickening. 5. Indeterminate intermediate density 3 cm lesion of the interpolar left kidney favoring a complex cyst could be correlated with a nonemergent follow-up renal ultrasound. 6. Additional findings as above. ACT 112: Negative or not required by law. Electronically signed by: Rajeev Roblero M.D. 01/21/2022 6:01 PM Chest X-Ray 01/23/22 08:17 XR chest 1V portable CLINICAL HISTORY: Fever TECHNIQUE: Single frontal radiograph of the chest was obtained. Comparison: Comparison is made to chest radiograph 04/25/[address] for radiation therapy 01/22/2022 FINDINGS: No lines and tubes are seen. Calcified aortic knob is seen. Atelectasis is seen in the left lower lung. No evidence of pleural effusion or pneumothorax. Indistinctness of the T6 vertebral body is seen compatible with osteolytic lesion. IMPRESSION: No acute abnormalities and in particular no evidence of pneumonia. ACT 112: Negative or not required by law. Electronically signed by: Rm Flores M.D. 01/23/2022 12:20 PM Hemodialysis Access Duplex US 01/23/22 12:39 US hemodialysis access CLINICAL HISTORY: malfunction of left arm fistula COMPARISON STUDY: Ultrasound hemodialysis access 04/06/2021. FINDINGS: The brachial and cephalic veins are patent and demonstrate normal flow. The proximal radial artery is also patent. No significant stenosis or occlusion. IMPRESSION: Patent left upper extremity fistula. ACT 112: Negative or not required by law. Electronically signed by: Robson Nj M.D. 01/23/2022 8:00 PM Medications Administered Current Inpatient Medications Acetaminophen (Acetaminophen 325 Mg Tab) 650 mg PO Q4H PRN PRN Reason: pain/fever Stop: 02/20/22 23:12 Last Admin: 01/23/22 16:18 Dose: 650 mg Calcitonin Mcandrews (Calcitonin Mcandrews Na 200 Iu/Ac 3.7 Ml Btl) 1 sprays NA DAILY [facility] Stop: 02/21/22 08:59 Last Admin: 01/24/22 10:06 Dose: 1 sprays Dextrose (Dextrose 50% 50 Ml Syringe) 25 - 50 ml IV UD PRN; Protocol PRN Reason: Hypoglycemia Protocol Stop: 02/20/22 23:29 Glucagon (Glucagon For Inj 1 Mg Vial) 1 mg IM UD PRN; Protocol PRN Reason: Hypoglycemia Protocol Stop: 02/20/22 23:29 Glucose (Glucose 40% Gel 15 Gm Tube) 15 - 30 gm PO UD PRN; Protocol PRN Reason: Hypoglycemia Protocol Stop: 02/20/22 23:29 Glucose (Glucose 10 Tab/Tube) 4 - 8 tab PO UD PRN; Protocol PRN Reason: Hypoglycemia Protocol Stop: 02/20/22 23:29 Heparin Sodium (Porcine) (Heparin Sod 5,000 Unit/0.5 Ml Vial) 5,000 units SQ Q8 [facility] Stop: 02/21/22 05:59 Last Admin: 01/24/22 06:23 Dose: 5,000 units Heparin Sodium (Porcine) (Heparin Sod (Porcine) 1000 Unit/Ml) 1,000 units IV TODAY@0830 [facility] Stop: 01/24/22 18:00 Hydromorphone HCl (Hydromorphone Inj 0.5 Mg/0.5 Ml Syr) 1 mg IV Q3H PRN PRN Reason: Pain Stop: 02/05/22 00:20 Last Admin: 01/24/22 10:28 Dose: 1 mg Sodium Chloride (Nss) 500 mls @ 0 mls/hr IV .Q0M [facility] Stop: 02/22/22 09:44 Sodium Chloride (Nss 1000ml) 1,000 mls @ 0 mls/hr IV .Q0M PRN PRN Reason: For Hemodialysis Use ONLY Stop: 01/24/22 14:10 Insulin Aspart (Insulin Aspart Per Unit) 0 units SC ACHS [facility] Stop: 02/21/22 07:29 Last Admin: 01/24/22 10:19 Dose: 4 units Insulin Glargine (Lantus Per Unit Charge) 20 units SQ DAILY [facility] Stop: 02/21/22 08:59 Last Admin: 01/24/22 10:20 Dose: 20 units Lactobacillus Acidophilus (Advanced Probiotic 1250 Mg Capsule) 1 cap PO BID [facility] Stop: 02/21/22 08:59 Last Admin: 01/24/22 10:07 Dose: 1 cap Lactulose (Lactulose Syrup 30 Gm/45 Ml Udp) 30 gm PO DAILY [facility] Stop: 02/21/22 08:59 Last Admin: 01/24/22 10:09 Dose: Not Given Levothyroxine Sodium (Levothyroxine Sodium 125 Mcg Tablet) 125 mcg PO DAILYBB [facility] Stop: 02/21/22 06:29 Last Admin: 01/24/22 06:24 Dose: 125 mcg Methadone HCl (Methadone Hcl 10 Mg Tab) 10 mg PO TID [facility] Stop: 02/05/22 08:59 Last Admin: 01/24/22 10:19 Dose: 10 mg Miscellaneous (Carbohydrates For Hypoglycemia ) 15 - 30 gm PO UD PRN PRN Reason: Hypoglycemia Treatment Stop: 02/20/22 23:29 Ondansetron HCl (Ondansetron Inj 2 Mg/Ml 2 Ml Vial) 4 mg IV Q6H PRN PRN Reason: Nausea Stop: 02/20/22 23:12 Last Admin: 01/22/22 17:57 Dose: 4 mg Sevelamer HCl (Sevelamer Hcl 800 Mg Tablet) 1,600 mg PO TIDM [facility] Stop: 02/21/22 07:59 Last Admin: 01/24/22 10:07 Dose: 1,600 mg Vitamin B Complex/Folic Acid (Nephrocaps) 1 cap PO DAILY [facility] Stop: 02/21/22 08:59 Last Admin: 01/24/22 10:07 Dose: 1 cap
[2022-01-24] MEDS: ACETAMINOPHEN 325 MG TAB PO PRN (12:30)
[2022-01-24] MEDS: HEPARIN SOD (PORCINE) 1000 UNIT/ML IV SCH ×2 (13:23→13:24)
--- NOTE | 2022-01-24 16:57 | Dialysis Progress Note ---
Date of Service January 24, 2022 Assessment & Plan (1) ESRD (end stage renal disease): Plan: last HD was 01/17 until 01/23; temp R groin dialysis cath as dialysis access currently 01/23 tolerating HD today w/ acceptable chemistries -eval for repeat tx tomorrow (2) Dialysis AV fistula malfunction: Plan: endovascular AVF infiltrated; possible it will need days or a week or more of rest >recommend tunneled dialysis catheter on Wednesday and eval of EV AVF then too (3) Hypoxia: Plan: new/ noted; relates in part to pain meds; remains on 02nC >> able to get to RA w/ HD (4) Pathologic fracture of thoracic vertebrae: Plan: getting palliative XRT; defer to primary service if special precautions needed w/ transfers, spine twists/position changes etc Admission and Anticipated Discharge Date Admission Date: January 21, 2022 Subjective no further F; for repeat spinal imaging and ? brace. pain still severe Review of Systems Review of Systems: All systems reviewed & are unremarkable except as noted in Subjective and Other Physical Exam Constitutional: well developed, well nourished (visibly thinner) and cooperative; no acute distress Eyes: EOM intact bilaterally ENMT: Ears: no external ear abnormality Nose: no external nose abnormality Mouth: + dry oral mucous membranes Neck: no nuchal rigidity Respiratory: normal respiratory effort (but pleuritic pain) Auscultation: + diminished lung sounds Cardiovascular: Rate/Rhythm: regular rate and regular rhythm Heart Sounds: no murmur Extremities: + edema (trace R ankle) and + AV fistula (indurated; + t/b deep) Gastrointestinal (Abdomen): Inspection/Auscultation: normal bowel sounds Percussion/Palpation: abdomen soft; abdomen nontender Musculoskeletal: Extremities: strength 5/5 throughout Ankle: + deformity (L ankle in cast/boot) Skin: no rashes, warm and dry Psychiatric: Orientation: oriented x 3 Speech: normal rate/rhythm/volume of speech Insight: good insight Judgement: + limited judgement Results & Data ([facility]) Vital Signs (Past 12 Hours) Vital Signs Temp Pulse Pulse Pulse Resp BP BP 01/24/22 14:20 36.9 C 85 131/41 L 01/24/22 14:00 86 89/54 L 01/24/22 13:30 86 109/68 01/24/22 13:00 86 97/65 L 01/24/22 12:30 52 L 104/45 L 01/24/22 12:00 80 124/62 01/24/22 11:30 85 111/45 L 01/24/22 11:00 82 166/73 H 01/24/22 10:40 36.9 C 85 01/24/22 07:39 36.9 C 83 18 166/78 H Pulse Ox O2 Del Method 01/24/22 14:20 01/24/22 14:00 01/24/22 13:30 01/24/22 13:00 01/24/22 12:30 01/24/22 12:00 01/24/22 11:30 01/24/22 11:00 01/24/22 10:40 01/24/22 07:39 96 Room Air Laboratory Results 01/23/22 08:30 01/24/22 06:40
--- NOTE | 2022-01-24 20:04 | CT Scan Report ---
CT SCAN OF THE THORACIC SPINE WITHOUT IV CONTRAST CLINICAL HISTORY: T6 fracture. COMPARISON STUDY: Chest CT dated 01/21/2022. TECHNIQUE: CT scan of the thoracic spine is performed from the lower cervical spine to the upper lumb ar spine. Images are reviewed in the axial, sagittal, and coronal planes. IV contrast was not adminis tered for this examination. A dose lowering technique was utilized adhering to the principles of PITO Stoner. The examination is degraded by suboptimal positioning with the patient within the CT gantry. CT DOSE: 993.46 mGy.cm FINDINGS: The skeletal structures are osteopenic. Again seen is a large osteolytic lesion with permea tive destruction of the T6 vertebral body. There is unchanged appearance of a burst fracture at this level with associated anterolisthesis and hyperkyphosis. Vertebral body height is otherwise maintaine d throughout the thoracic spine. The transverse and spinous processes appear intact. The osteolytic l esion of T6 involves the posterior/inferior endplate of T5 and the posterior/superior endplate of T7 with osteolytic destruction. There is permeative destruction of the bilateral pedicles of T6. This al so extends into the lamina bilaterally. There is a large soft tissue component of this lesion with pa raspinous extension. This lesion causes near complete effacement of the central canal at the T5 and T 6 levels. Intrathecal component measures approximately 3 cm in craniocaudal length. There is also delroy r complete effacement of the bilateral neural foramina at C5-C6 and T6-T7. The paravertebral componen t of this lesion involves the left posterior 7th rib at the costovertebral junction as seen on image #170. No additional osteolytic lesions are clearly seen in the thoracic spine. No additional fracture is identified. Imaged lung parenchyma shows no airspace consolidation or pleural effusion. Scarring/ atelectasis is present at the lung bases. The paraspinous soft tissues are normal as visualized. The coronary arteries are densely calcified. IMPRESSION: 1. No significant change from 01/21/2022. 2. Again seen is an osteolytic destructive lesion of the T6 vertebral body with a severe burst type p athologic compression fracture. 3. There is a large paravertebral soft tissue component to the T6 lesion, with associated indication/ erosive change involving T5, T7, and the left posterior 7th rib as above. 4. The large soft tissue component of the lesion invades the central canal and causes severe effaceme nt of the thecal sac at T5 and T6. 5. No additional fracture is identified. ACT 112: Negative or not required by law. Dictated: 01/24/2022 4:56 PM Transcribed: 01/24/2022 7:43 PM Mirela [id number] [email or web address] Electronically signed by: Russell Fernandez M.D. 01/24/2022 8:02 PM
[2022-01-25] MEDS: HYDROmorphone INJ 0.5 MG/0.5 ML SYR IV PRN ×6 (01:17→22:26)
[2022-01-25] MEDS: HEPARIN SOD 5,000 UNIT/0.5 ML VIAL SQ SCH ×3 (05:26→22:26)
[2022-01-25] MEDS: LEVOTHYROXINE SODIUM 125 MCG TABLET PO SCH (05:26)
[2022-01-25 08:11] LABS: BUN Creatinine Ratio 10.5 (10-20); Calcium 10.1 mg/dl (8.5-10.1); Creatinine Clr Calc Pharmacy 16.9 ml/min; Est GFR (African American) 13.3 ml/min; Est GFR (Non-African American) 11.5 ml/min; Potassium 4.4 mmol/L (3.5-5.1)
[2022-01-25] MEDS: INSULIN ASPART PER UNIT SC SCH ×4 (09:06→22:33)
[2022-01-25] MEDS: LANTUS PER UNIT CHARGE SQ SCH (09:08)
[2022-01-25] MEDS: SEVELAMER HCL 800 MG TABLET PO SCH ×3 (09:08→17:30)
[2022-01-25] MEDS: ADVANCED PROBIOTIC 1250 MG CAPSULE PO SCH ×2 (09:08→22:25)
[2022-01-25] MEDS: LACTULOSE SYRUP 30 GM/45 ML UDP PO SCH (09:08)
[2022-01-25] MEDS: NEPHROCAPS PO SCH (09:08)
[2022-01-25] MEDS: METHADONE HCL 10 MG TAB PO SCH ×3 (09:08→22:46)
[2022-01-25] MEDS: CALCITONIN SALMON NA 200 IU/AC 3.7 ML BTL SCH (09:09)
--- NOTE | 2022-01-25 10:08 | Orthopedic Progress Note ---
Date of Service January 25, 2022 Assessment & Plan (1) Burst fracture of thoracic vertebra: Plan: Assessment pathologic burst fracture T6. Plan I have reviewed the CAT scan of the thoracic spine. She has marked collapse and expansion of the T6 vertebral body. Is pathologic in nature. While she is neurologically intact at this time I am concerned that further collapse or growth in the canal will compromise cord function. I strongly recommend a tertiary care opinion. I understand she is a significant surgical risk and would not be a procedure we could perform at this institution. Admission and Anticipated Discharge Date Admission Date: January 21, 2022 Subjective Severe thoracic back pain Results & Data ([facility]) Vital Signs (Past 12 Hours) Vital Signs Temp Pulse Resp BP Pulse Ox O2 Del Method 01/25/22 07:59 37.0 C 87 17 146/63 H 95 Room Air 01/25/22 04:28 Room Air 01/24/22 22:47 37.4 C 87 18 139/78 95 Room Air
[2022-01-25] MEDS: LIDOCAINE 5% 1 PATCH TD SCH (13:06)
[2022-01-25] MEDS ORDERED: CALCIUM CARBONATE 500 MG CHEWABLE TAB PO PRN (17:13)
--- NOTE | 2022-01-25 17:52 | Hospitalist Progress Note ---
Date of Service January 25, 2022 Assessment & Plan (1) Intractable back pain: (2) Burst fracture of thoracic vertebra: (3) Pathologic fracture of thoracic vertebrae: (4) Neuroendocrine tumor: (5) Insulin dependent diabetes mellitus: (6) ESRD (end stage renal disease): Plan 56-year-old female with metastatic neuroendocrine tumor presented to ED with severe back pain due to pathologic burst fracture of thoracic vertebra CT thoracic vertebra 1. No significant change from 01/21/2022. 2. Again seen is an osteolytic destructive lesion of the T6 vertebral body with a severe burst type pathologic compression fracture. 3. There is a large paravertebral soft tissue component to the T6 lesion, with associated indication/ erosive change involving T5, T7, and the left posterior 7th rib as above. 4. The large soft tissue component of the lesion invades the central canal and causes severe effacement of the thecal sac at T5 and T6. 5. No additional fracture is identified. Intractable back pain due to pathologic burst fracture T6 from metastatic neuroendocrine tumor, new lesions in T6 and L4 - ER spoke with Hem Oncology, recommended Radiation Oncology- consulted- awaiting evaluation - Seen by ortho and recommendation noted about transfer. I spoke to Dr Dean today- no need for urgent transfer as she is clinically stable with no neurological deficits- recommended radiation treatment to see if this would help her- if pain controlled, will get an MRI back for better evaluation- however if neuro deficits in the meantime s/o spinal cord compression, would need transfer to tertiary center- patient agreeable to the plan - seen by pain management- continue methadone, dilaudid prn, lidocaine patch. On calcitonin spray - Radiation oncology eval pending ESRD on HD TTS- fistula malfunctioned and now getting dialysis through femoral line. Plan for IJ line tomorrow. Dialysis per nephro DM-2- continue basaglar, SSI, adjust as indicated Hypothyroidism. Continue Synthroid. Renal cyst. Needs followup Hyponatremia- stable at 130. monitor DVT ppx- sc heparin Dispo- still with intractable pain. will need radiation oncology eval and radiation treatment followed by MRI. Will get tertiary center opinion as per ortho recommendation. Might need transfer to tertiary center. Updated family at bedside Admission and Anticipated Discharge Date Admission Date: January 21, 2022 Subjective Still with severe back pain requiring regular iv dilaudid on top of methadone and has to find a comfortable position. no numbness, weakness, tingling, bowel bladder incontinence. Discussed ortho recommendations. Family at bedside Physical Exam Physical Exam: General: sitting in bed, not in acute distress, on room air HEENT: EOMI, PERRL, MMM Chest: Clear breath sounds bilaterally, no wheezes or crackles CVS: Regular rate and rhythm, normal heart sounds, no murmur Abdomen: Soft, non tender, not distended, normal bowel sounds Tenderness at thoracic spine at level of fracture Neuro: Awake, alert, oriented, conversing well, non focal Extremities: No edema Results & Data Results & Data ([facility]) Vital Signs (Past 12 Hours) Vital Signs Temp Pulse Resp BP Pulse Ox O2 Del Method 01/25/22 14:55 36.9 C 89 16 178/74 H 96 Room Air 01/25/22 07:59 37.0 C 87 17 146/63 H 95 Room Air Laboratory Results [facility] 01/25/22 07:24 Sodium 130 L Potassium 4.4 Chloride 99 Carbon Dioxide 26 BUN 43 H Creatinine 4.11 H Glucose 97 Calcium 10.1 Medications Administered Current Inpatient Medications Acetaminophen (Acetaminophen 325 Mg Tab) 650 mg PO Q4H PRN PRN Reason: pain/fever Stop: 02/20/22 23:12 Last Admin: 01/24/22 12:30 Dose: 650 mg Calcitonin [place] (Calcitonin [place] Na 200 Iu/Ac 3.7 Ml Btl) 1 sprays NA DAILY KIRT Stop: 02/21/22 08:59 Last Admin: 01/25/22 09:09 Dose: 1 sprays Calcium Carbonate (Calcium Carbonate 500 Mg Chewable Tab) 1,000 mg PO TID PRN PRN Reason: Indigestion Stop: 02/24/22 17:12 Last Admin: 01/25/22 17:23 Dose: 1,000 mg Dextrose (Dextrose 50% 50 Ml Syringe) 25 - 50 ml IV UD PRN; Protocol PRN Reason: Hypoglycemia Protocol Stop: 02/20/22 23:29 Glucagon (Glucagon For Inj 1 Mg Vial) 1 mg IM UD PRN; Protocol PRN Reason: Hypoglycemia Protocol Stop: 02/20/22 23:29 Glucose (Glucose 40% Gel 15 Gm Tube) 15 - 30 gm PO UD PRN; Protocol PRN Reason: Hypoglycemia Protocol Stop: 02/20/22 23:29 Glucose (Glucose 10 Tab/Tube) 4 - 8 tab PO UD PRN; Protocol PRN Reason: Hypoglycemia Protocol Stop: 02/20/22 23:29 Heparin Sodium (Porcine) (Heparin Sod 5,000 Unit/0.5 Ml Vial) 5,000 units SQ Q8 KIRT Stop: 02/21/22 05:59 Last Admin: 01/25/22 13:06 Dose: 5,000 units Hydromorphone HCl (Hydromorphone Inj 0.5 Mg/0.5 Ml Syr) 1 mg IV Q3H PRN PRN Reason: Pain Stop: 02/05/22 00:20 Last Admin: 01/25/22 14:46 Dose: 1 mg Sodium Chloride (Nss) 500 mls @ 0 mls/hr IV .Q0M KIRT Stop: 02/22/22 09:44 Insulin Aspart (Insulin Aspart Per Unit) 0 units SC ACHS KIRT Stop: 02/21/22 07:29 Last Admin: 01/25/22 13:07 Dose: 4 units Insulin Glargine (Lantus Per Unit Charge) 20 units SQ DAILY KIRT Stop: 02/21/22 08:59 Last Admin: 01/25/22 09:08 Dose: 20 units Lactobacillus Acidophilus (Advanced Probiotic 1250 Mg Capsule) 1 cap PO BID KIRT Stop: 02/21/22 08:59 Last Admin: 01/25/22 09:08 Dose: 1 cap Lactulose (Lactulose Syrup 30 Gm/45 Ml Udp) 30 gm PO DAILY KIRT Stop: 02/21/22 08:59 Last Admin: 01/25/22 09:08 Dose: Not Given Levothyroxine Sodium (Levothyroxine Sodium 125 Mcg Tablet) 125 mcg PO DAILYBB KIRT Stop: 02/21/22 06:29 Last Admin: 01/25/22 05:26 Dose: 125 mcg Lidocaine (Lidocaine 5% 1 Patch) 1 patch TD QAM KIRT Stop: 02/24/22 12:14 Last Admin: 01/25/22 13:06 Dose: 1 patch Methadone HCl (Methadone Hcl 10 Mg Tab) 10 mg PO TID KIRT Stop: 02/05/22 08:59 Last Admin: 01/25/22 13:06 Dose: 10 mg Miscellaneous (Carbohydrates For Hypoglycemia ) 15 - 30 gm PO UD PRN PRN Reason: Hypoglycemia Treatment Stop: 02/20/22 23:29 Miscellaneous (Remove Lidoderm Patch) 1 each N/A DAILY@2100 KIRT Stop: 02/24/22 20:59 Ondansetron HCl (Ondansetron Inj 2 Mg/Ml 2 Ml Vial) 4 mg IV Q6H PRN PRN Reason: Nausea Stop: 02/20/22 23:12 Last Admin: 01/22/22 17:57 Dose: 4 mg Sevelamer HCl (Sevelamer Hcl 800 Mg Tablet) 1,600 mg PO TIDM [facility] Stop: 02/21/22 07:59 Last Admin: 01/25/22 11:30 Dose: 1,600 mg Vitamin B Complex/Folic Acid (Nephrocaps) 1 cap PO DAILY KIRT Stop: 02/21/22 08:59 Last Admin: 01/25/22 09:08 Dose: 1 cap
[2022-01-26] MEDS: HYDROmorphone INJ 0.5 MG/0.5 ML SYR IV PRN ×5 (01:53→19:35)
[2022-01-26] MEDS: LEVOTHYROXINE SODIUM 125 MCG TABLET PO SCH (05:08)
[2022-01-26] MEDS: HEPARIN SOD 5,000 UNIT/0.5 ML VIAL SQ SCH ×3 (06:45→20:09)
[2022-01-26] MEDS ORDERED: SODIUM CHLORIDE 0.9% 1000ML 1,000 ML IV PRN (07:00)
--- NOTE | 2022-01-26 07:36 | History & Physical Bridge Note ---
Date of Service January 26, 2022 History & Physical Bridge Note Patient for insertion of permcath today. I have discussed the risks options and benefits of the procedure with the patient. The patient understands the risks options and benefits and agrees to the procedure. I have examined the patient, reviewed the History & Physical and in the interval since the performance of the History & Physical I have noted the following changes of clinical significance: no changes noted
[2022-01-26] MEDS ORDERED: MIDAZOLAM HCL 1 MG/ML 2ML VIAL ONE (07:38)
[2022-01-26] MEDS ORDERED: PROPOFOL IV EMULSION 10 MG/ML 20 ML VIAL IV ONE (07:38)
[2022-01-26] MEDS ORDERED: fentaNYL citrate 100 MCG/2 ML VIAL ONE (07:38)
--- NOTE | 2022-01-26 07:43 | Anesthesiology Consultation ---
Date of Service January 26, 2022 Assessment & Plan (1) Encounter for pre-operative examination: Chart Review Chart Review: Acceptable Risk for Surgery History Surgery Operation Date: 01/23/22 11:30 Proposed Procedures p Perm Catheter Placement - Rigo Strong MD Operation Date: 01/26/22 08:00 Proposed Procedures p Perm Catheter Placement - Rigo Strong MD Height/Weight Height: 5 ft 7 in Weight: 80.9 kg Allergies Allergy/AdvReac Type Severity Reaction Status Date / Time Iodinated Contrast Media AdvReac Severe Patient Verified 09/24/21 07:36 has kidney failure omeprazole AdvReac Severe Increased Verified 09/24/21 07:36 her acid reflux Medications Home Medications Medication Instructions Recorded Confirmed Last Taken insulin aspart U-100 100 unit/mL 1 sliding scale dose subcut 03/15/21 10/24/21 09/11/21 subcutaneous solution (Novolog USEASDIRECTD U-100 Insulin aspart) levothyroxine 125 mcg tablet 125 mcg PO DAILYBB 03/15/21 10/24/21 09/11/21 docusate sodium 100 mg capsule 100 mg PO DAILY PRN Constipation 06/11/21 10/24/21 09/11/21 (Colace) insulin NPH isoph U-100 human 100 30 unit subcut BID 06/11/21 10/24/21 09/11/21 unit/mL (3 mL) subcutaneous pen (Humulin N NPH U-100 Insulin KwikPen) sevelamer carbonate 800 mg tablet 1,600 mg PO TIDM 07/30/21 10/24/21 09/11/21 (Renvela) Lactobacillus acidoph-L.bulgaricus 1 tab PO BID #60 tabs 08/07/21 10/24/21 09/11/21 1 million cell chewable tablet (Lactinex) vitamin B complex-vitamin C-folic 1 tab PO DAILY 09/11/21 10/24/21 09/11/21 acid 0.8 mg tablet (Ira-Umer) famotidine 20 mg tablet 20 mg PO BID #20 tabs 01/21/22 Unknown hydromorphone 8 mg tablet 8 mg PO DAILY 01/21/22 01/21/22 Unknown ondansetron 4 mg disintegrating 4 mg PO Q6H PRN nausea and 01/21/22 Unknown tablet vomiting #14 tabs Active Medications Generic Name Dose Route Start Last Admin Trade Name Freq PRN Reason Stop Dose Admin Acetaminophen 650 mg 01/21/22 23:13 01/24/22 12:30 Acetaminophen 325 Mg Tab PO 02/20/22 23:12 650 mg Q4H PRN Administration pain/fever Calcitonin [place] 1 sprays 01/22/22 09:00 01/25/22 09:09 Calcitonin [place] Na 200 Iu/Ac 3.7 Ml Btl NA 02/21/22 08:59 1 sprays DAILY KIRT Administration Calcium Carbonate 1,000 mg 01/25/22 17:13 01/25/22 17:23 Calcium Carbonate 500 Mg Chewable Tab PO 02/24/22 17:12 1,000 mg TID PRN Administration Indigestion Heparin Sodium (Porcine) 5,000 units 01/22/22 06:00 01/26/22 06:45 Heparin Sod 5,000 Unit/0.5 Ml Vial SQ 02/21/22 05:59 5,000 units Q8 KIRT Administration Hydromorphone HCl 1 mg 01/22/22 01:44 01/26/22 05:04 Hydromorphone Inj 0.5 Mg/0.5 Ml Syr IV 02/05/22 00:20 1 mg Q3H PRN Administration Pain Insulin Aspart 0 units 01/22/22 07:30 01/25/22 22:33 Insulin Aspart Per Unit SC 02/21/22 07:29 Not Given ACHS KIRT Insulin Glargine 20 units 01/22/22 09:00 01/25/22 09:08 Lantus Per Unit Charge SQ 02/21/22 08:59 20 units DAILY KIRT Administration Lactobacillus Acidophilus 1 cap 01/22/22 09:00 01/25/22 22:25 Advanced Probiotic 1250 Mg Capsule PO 02/21/22 08:59 1 cap BID KIRT Administration Lactulose 30 gm 01/22/22 09:00 01/25/22 09:08 Lactulose Syrup 30 Gm/45 Ml Udp PO 02/21/22 08:59 Not Given DAILY KIRT Levothyroxine Sodium 125 mcg 01/22/22 06:30 01/26/22 05:08 Levothyroxine Sodium 125 Mcg Tablet PO 02/21/22 06:29 125 mcg DAILYBB KIRT Administration Lidocaine 1 patch 01/25/22 12:15 01/25/22 13:06 Lidocaine 5% 1 Patch TD 02/24/22 12:14 1 patch QAM KIRT Administration Methadone HCl 10 mg 01/22/22 09:00 01/25/22 22:46 Methadone Hcl 10 Mg Tab PO 02/05/22 08:59 10 mg TID KIRT Administration Miscellaneous 1 each 01/25/22 21:00 01/25/22 22:11 Remove Lidoderm Patch N/A 02/24/22 20:59 1 each DAILY@2100 KIRT Administration Ondansetron HCl 4 mg 01/21/22 23:13 01/22/22 17:57 Ondansetron Inj 2 Mg/Ml 2 Ml Vial IV 02/20/22 23:12 4 mg Q6H PRN Administration Nausea Sevelamer HCl 1,600 mg 01/22/22 08:00 01/25/22 17:30 Sevelamer Hcl 800 Mg Tablet PO 02/21/22 07:59 1,600 mg TIDM KIRT Administration Vitamin B Complex/Folic Acid 1 cap 01/22/22 09:00 01/25/22 09:08 Nephrocaps PO 02/21/22 08:59 1 cap DAILY KIRT Administration NPO Date Last Intake of Fluids: 01/25/22 Time Last Intake of Fluids: 23:00 Last Intake of Fluids Comment: sip of water 0500 w/med Date Last Intake of Solids: 01/25/22 Time Last Intake of Solids: 21:00 Past Medical History Medical History Acid reflux Amputation of right great toe Anemia Chronic narcotic dependence Diabetes Diabetic retinopathy ESRD (end stage renal disease) On dialysis H/O vocal cord paralysis Right side Hypertension MRSA bacteremia 2017; unclear if vertebral or R diabetic foot wound source Neuroendocrine tumor (12/05/19) Osteomyelitis of left foot chronic 2020 and 2021 Pneumonia (10/05/13) Radicular pain of thoracic region Retinal hemorrhage, right eye Sepsis Shortness of breath (10/05/13) Thyroid cancer Thyroid nodule Past Family History Family History Mother , 70yo Valvular heart disease Diabetes Father , 74yo Pneumonia Diabetes Brother No problems noted. Brother No problems noted. Sister Dialysis patient Kidney disease Daughter No problems noted. Daughter Diabetes Past Surgical History Surgical History AVF (arteriovenous fistula) endovascular L; created 09/2020 H/O thyroidectomy Partial thyroidectomy History of cholecystectomy History of insertion of tunneled central venous catheter (CVC) with port History of surgery Surgery to removed benign tumor from right vocal cord; Hx of cataract surgery Bilateral Hx of tonsillectomy Previous section Social History Smoking Status: Never smoker Hx Alcohol Use: No Hx Substance Use: No Physical Exam Vital Signs Last Vital Signs Temp 36.2 C L 01/26/22 07:36 Pulse 89 01/26/22 07:36 Resp 18 01/26/22 07:36 BP 184/100 H 01/26/22 07:36 Pulse Ox 98 01/26/22 07:36 O2 Del Method 01/26/22 03:03 O2 Flow Rate 3 01/23/22 18:36 Testing Laboratory Results 01/23/22 08:30 01/25/22 07:24 PT 11.1 Seconds (9.0-12.0) 01/22/22 18:08 INR 1.0 (0.9-1.1) 01/22/22 18:08 Hemoglobin A1c 4.9 % (4.5-5.6) 01/22/22 06:10 Urine Color Yellow 01/24/22 03:30 Urine Appearance Clear (Clear) 01/24/22 03:30 Urine pH 8.5 (4.5-7.5) H 01/24/22 03:30 Ur Specific [place] 1.014 (1.000-1.030) 01/24/22 03:30 Urine Protein 3+ (Negative) H 01/24/22 03:30 Urine Glucose (UA) Trace (Negative) H 01/24/22 03:30 Urine Ketones Negative (Negative) 01/24/22 03:30 Urine Nitrite Negative (Negative) 01/24/22 03:30 Ur Leukocyte Esterase Negative (Negative) 01/24/22 03:30 Urine WBC (Auto) 1-5 /hpf (0-5) 01/24/22 03:30 Urine RBC (Auto) 5-10 /hpf (0-4) H 01/24/22 03:30 U Hyaline Cast (Auto) 1-5 /lpf (0-5) 01/24/22 03:30 U Epithel Cells (Auto) >30 /lpf (0-5) H 01/24/22 03:30 Urine Bacteria (Auto) Negative (Negative) 01/24/22 03:30 01/23/22 18:15 Aerobic Blood Culture - Preliminary Blood No growth in Aerobic bottle after 48 hours. Anaerobic Blood Culture - Final 01/23/22 18:06 Aerobic Blood Culture - Preliminary Blood No growth in Aerobic bottle after 48 hours. Anaerobic Blood Culture - Final 01/25/22 20:08 POC Glucose 142 H Electrocardiogram Date: 01/23/22 Findings: + NSR @ (79)
[2022-01-26] MEDS ORDERED: HEPARIN SOD (PORCINE) 5,000 UNITS/ML VIAL ONE (07:50)
[2022-01-26] MEDS ORDERED: ONDANSETRON INJ 2 MG/ML 2 ML VIAL IV PRN (07:54)
[2022-01-26] MEDS ORDERED: LABETALOL HCL IV 5 MG/ML 20ML IV PRN (07:54)
[2022-01-26] MEDS ORDERED: ATROPINE SULFATE 0.1 MG/ML 10ML SYR IV PRN (07:54)
[2022-01-26] MEDS ORDERED: ceFAZolin 1000MG 1,000 MG/7.5 ML SYR IV ONE (08:00)
[2022-01-26] MEDS ORDERED: ONDANSETRON INJ 2 MG/ML 2 ML VIAL ONE (08:13)
--- NOTE | 2022-01-26 08:22 | Pain Management Progress Note ---
Date of Service January 26, 2022 Assessment & Plan (1) Radicular pain of thoracic region: (2) Pathologic fracture of thoracic vertebrae: (3) ESRD (end stage renal disease): (4) Neuroendocrine tumor: (5) Metastatic disease: (6) Insulin dependent diabetes mellitus: Plan 1. Recommend maintaining methadone 10 mg 3 times daily 2. Continue with calcitonin spray 1 spray in 1 nostril daily with alternating nostrils 3. Recommend patient use PO hydromorphone 2mg PO q3 prn pain prior to IV hydromorphone as needed breakthrough pain. 4. Will see patient in AM to determine if addition methadone increase required. Admission and Anticipated Discharge Date Admission Date: January 21, 2022 Subjective Pt in OR this AM for infusaport insertion, but used 5mg of IV hydromorphone over the last 24 hours. Pain ranging between 9-10/10. Physical Exam Physical Exam: in OR this AM
--- NOTE | 2022-01-26 08:51 | Operative Report ---
Post Operative Report Pre & Post Diagnosis Operation Date: 01/23/22 11:30 Pre-Op Diagnosis: Malfunctioning Fistula Post-Op Diagnosis: Malfunctioning Fistula Operation Date: 01/26/22 08:00 Pre-Op Diagnosis: malfunctioning fistula Post-Op Diagnosis: malfunctioning fistula I identified the patient and participated in the time-out.: Yes Procedure Operation Date: 01/23/22 11:30 Actual Procedures p Insertion of Temporary Dialysis Catheter, Ultrasound Localization of Right Fem oral Vein, Fluoroscopy for Positioning(Right) - Rigo Strong MD Operation Date: 01/26/22 08:00 Actual Procedures p Insertion of Perm Catheter, Left Internal Juglar Approach, Ultrasound Localization of Left Internal Jugular Vein , Fluoroscopy for Positioning, Removal of Nontunneling Catheter (Left) - Rigo Strong MD Surgeon Rigo Strong MD Forensic Psychologist None Estimated Blood Loss 3 Findings Consistent with Post-Op Diagnosis Specimens None Anesthesia Type General Complications none Disposition Accompanied Patient To Recovery: No Disposition: Recovery Room Indications This is a 56-year-old female who presented with infiltration of her left arm fistula. She was febrile so a temporary dialysis catheter was placed. Infection work-up was negative with negative cultures. A PermCath insertion was recommended. I have discussed the risks options and benefits of the procedure with the patient. The patient understands the risks options and benefits and agrees to the procedure. Description of Procedure Patient was taken to the angio suite and placed in the supine position. The left side of the neck and chest wall were prepped and draped in a sterile manner. The patient was identified and a timeout performed. Local anesthesia was then administered to the appropriate areas of the neck and chest wall. Ultrasound was then used to locate the left internal jugular vein. The vein compressed easily, had no filing defects, and was patent. The vein was then punctured under direct ultrasound imaging. A guidewire was then passed centrally under fluoroscopic imaging. A stab wound was then made in the anterior chest wall and a 19 cm permcath was passed from the stab wound on the chest wall to the puncture site on the neck. The puncture site was then dilated till the 14Fr peel away sheath was inserted. The permcath was then inserted through the sheath to a central position in the distal superior vena cava. The peel away sheath was then removed. The catheter was then sutured in place using nylon sutures. The puncture was then closed using a 4-0 Vicryl subcuticular suture. Dermabond was used for a dressing on the puncture site. Both ports aspirated and flushed easily and were then packed with heparin. A sterile dressing was applied to the catheter. The dressing was removed from the temporary dialysis cath in right groin. Sutures were removed. The catheter was pulled out and pressure was applied. Adequate hemostasis was noted. A sterile dressing was then applied. The patient left the operation room in satisfactory condition and tolerated the procedure well. All needle and sponge counts were correct at the end of the procedure. The patient left the operation room in satisfactory condition and tolerated the procedure well. All needle and sponge counts were correct at the end of the procedure. I attest to the content of the Intraoperative Record and any orders documented therein. Any exceptions are noted below.
--- NOTE | 2022-01-26 09:21 | Nephrology Progress Note ---
Date of Service January 26, 2022 Assessment & Plan (1) ESRD (end stage renal disease): Plan: last HD was 01/17 until 01/23; temp R groin dialysis cath as dialysis access currently 01/23 tolerated HD 01/23 w/ acceptable chemistries -She will be dialyzed today. (2) Dialysis AV fistula malfunction: Plan: endovascular AVF infiltrated; possible it will need days or a week or more of rest >recommend tunneled dialysis catheter on Wednesday and eval of EV AVF then too (3) Hypoxia: Plan: new/ noted; relates in part to pain meds; remains on nC >> able to get to RA w/ HD (4) Pathologic fracture of thoracic vertebrae: Plan: getting palliative XRT; defer to primary service if special precautions needed w/ transfers, spine twists/position changes Admission and Anticipated Discharge Date Admission Date: January 21, 2022 Subjective Seen in follow-up for ESRD. Patient just had a PermCath placement this morning. She is resting comfortably. She is planned for dialysis later this morning Review of Systems Review of Systems: All other systems were reviewed and negative except as noted in HPI Physical Exam Physical Exam: General exam: Appears comfortable, no acute distress HEENT: Pupils are equal and reactive to light Neck: No JVD, neck is supple trachea is midline Respiratory system: Clear breath sounds bilaterally. Gastrointestinal: Abdomen is soft, non distended, non tender, bowel sounds are present CVS: Regular rate and rhythm. No murmurs, rubs or gallops Musculoskeletal: No joint or muscle tenderness Extremities: Non tender, no edema, peripheral pulses are present Neuro: Oriented, no tremors, no focal neurological deficits Skin: No rashes Results & Data ([facility]) Vital Signs (Past 12 Hours) Vital Signs Temp Pulse Pulse Pulse Resp BP Pulse Ox 01/26/22 09:10 89 20 183/84 H 100 01/26/22 09:00 88 15 178/99 H 98 01/26/22 08:53 36.3 C L 80 16 145/55 H 94 01/26/22 07:36 36.2 C L 89 18 184/100 H 98 01/26/22 03:03 01/25/22 23:03 36.6 C 84 16 166/83 H 97 O2 Del Method O2 Flow Rate 01/26/22 09:10 Nasal Cannula 2 01/26/22 09:00 Nasal Cannula 4 01/26/22 08:53 Nasal Cannula 4 01/26/22 07:36 01/26/22 03:03 Room Air 01/25/22 23:03 Room Air Laboratory Results 01/25/22 07:24
[2022-01-26] MEDS: HYDROmorphone INJ 1 MG/ML SYRINGE IV PRN ×2 (09:23→09:28)
[2022-01-26] MEDS: INSULIN ASPART PER UNIT SC SCH ×4 (09:33→20:04)
[2022-01-26] MEDS: LIDOCAINE 5% 1 PATCH TD SCH (10:10)
[2022-01-26] MEDS: LACTULOSE SYRUP 30 GM/45 ML UDP PO SCH (10:10)
[2022-01-26] MEDS: CALCITONIN SALMON NA 200 IU/AC 3.7 ML BTL SCH (10:10)
[2022-01-26] MEDS: METHADONE HCL 10 MG TAB PO SCH ×3 (10:10→20:09)
[2022-01-26] MEDS: ADVANCED PROBIOTIC 1250 MG CAPSULE PO SCH ×2 (10:11→20:04)
[2022-01-26] MEDS: LANTUS PER UNIT CHARGE SQ SCH (10:11)
[2022-01-26] MEDS: SEVELAMER HCL 800 MG TABLET PO SCH ×3 (10:11→17:39)
[2022-01-26] MEDS: NEPHROCAPS PO SCH (10:12)
--- NOTE | 2022-01-26 10:31 | Orthopedic Progress Note ---
Date of Service January 26, 2022 Assessment & Plan (1) Pathologic fracture of thoracic vertebrae: Plan: At this time I had a discussion with the patient regarding her CAT scan findings and my concerns. We both agreed continued radiation therapy is the plan she understands if there is a change neurologically or decline in function of the lower extremities indicating cord compression in the thoracic region she may need to be transferred to a tertiary care center. Ideally once the pain is controlled to radiation we will be able to obtain a thoracic MRI. Admission and Anticipated Discharge Date Admission Date: January 21, 2022 Subjective Patient states her back pain is more controlled today. Denies any numbness and tingling to lower extremities. Physical Exam Physical Exam: Patient seen in bed. She is good strength testing the right lower extremity. She has a boot on the left lower extremity secondary to foot osteomyelitis. Results & Data ([facility]) Vital Signs (Past 12 Hours) Vital Signs Temp Pulse Pulse Pulse Resp BP Pulse Ox 01/26/22 10:15 36.8 C 91 H 18 160/81 H 97 01/26/22 09:55 36.4 C L 91 H 18 164/74 H 97 01/26/22 09:40 36.2 C L 90 17 184/72 H 98 01/26/22 09:30 92 H 19 189/94 H 99 01/26/22 09:20 91 H 18 183/94 H 99 01/26/22 09:10 89 20 183/84 H 100 01/26/22 09:00 88 15 178/99 H 98 01/26/22 08:53 36.3 C L 80 16 145/55 H 94 01/26/22 07:36 36.2 C L 89 18 184/100 H 98 01/26/22 03:03 01/25/22 23:03 36.6 C 84 16 166/83 H 97 O2 Del Method O2 Flow Rate 01/26/22 10:15 01/26/22 09:55 Room Air 01/26/22 09:40 Nasal Cannula 2 01/26/22 09:30 Nasal Cannula 2 01/26/22 09:20 Nasal Cannula 2 01/26/22 09:10 Nasal Cannula 2 01/26/22 09:00 Nasal Cannula 4 01/26/22 08:53 Nasal Cannula 4 01/26/22 07:36 01/26/22 03:03 Room Air 01/25/22 23:03 Room Air
[2022-01-26 10:53] LABS: Hematocrit (blood only) 33.2 % (34.1-44.9); Hemoglobin 10.3 g/dl (12.0-16.0); Mean Corpuscular Hemoglobin 30.7 pg (25.0-34.0); Mean Corpuscular Volume 99.1 fL (80.0-100.0); Mean Platelet Volume 8.2 fL (9.4-12.3); Platelet Count 186 K/uL (130-400); RDW Coefficient of Variation 17.3 % (11.5-14.5); RDW Standard Deviation 63.6 fL (36.4-46.3); Red Blood Count 3.35 M/uL (3.93-5.22); White Blood Count 4.61 K/ul (4.8-10.8)
[2022-01-26 11:24] LABS: BUN Creatinine Ratio 10.8 (10-20); Calcium 11.2 mg/dl (8.5-10.1); Creatinine Clr Calc Pharmacy 13.2 ml/min; Est GFR (African American) 9.8 ml/min; Est GFR (Non-African American) 8.5 ml/min; Magnesium 4.5 mg/dl (1.7-2.4); Potassium 4.3 mmol/L (3.5-5.1)
[2022-01-26] MEDS: ACETAMINOPHEN 1,000 MG/100 ML VIAL IV SCH ×2 (12:24→19:16)
--- NOTE | 2022-01-26 14:04 | Anesthesiology Progress Note ---
Date of Service January 26, 2022 Anesthesia Post Procedure Vital Signs Vital Signs: Temp Pulse Pulse Pulse Pulse Pulse Resp 01/26/22 13:45 80 01/26/22 13:30 80 01/26/22 13:23 84 01/26/22 13:20 36.7 C 85 01/26/22 11:54 01/26/22 10:45 36.8 C 89 18 01/26/22 10:44 01/26/22 10:15 36.8 C 91 H 18 01/26/22 09:55 36.4 C L 91 H 18 01/26/22 09:40 36.2 C L 90 17 01/26/22 09:30 92 H 19 01/26/22 09:20 91 H 18 01/26/22 09:10 89 20 01/26/22 09:00 88 15 01/26/22 08:53 36.3 C L 80 16 01/26/22 07:36 36.2 C L 89 18 01/26/22 03:03 01/25/22 23:03 36.6 C 84 16 01/25/22 14:55 36.9 C 89 16 BP BP Pulse Ox O2 Del Method O2 Flow Rate 01/26/22 13:45 96/43 L 01/26/22 13:30 96/45 L 01/26/22 13:23 155/63 H 01/26/22 13:20 01/26/22 11:54 Room Air 01/26/22 10:45 127/82 95 01/26/22 10:44 Room Air 01/26/22 10:15 160/81 H 97 01/26/22 09:55 164/74 H 97 Room Air 01/26/22 09:40 184/72 H 98 Nasal Cannula 2 01/26/22 09:30 189/94 H 99 Nasal Cannula 2 01/26/22 09:20 183/94 H 99 Nasal Cannula 2 01/26/22 09:10 183/84 H 100 Nasal Cannula 2 01/26/22 09:00 178/99 H 98 Nasal Cannula 4 01/26/22 08:53 145/55 H 94 Nasal Cannula 4 01/26/22 07:36 184/100 H 98 01/26/22 03:03 Room Air 01/25/22 23:03 166/83 H 97 Room Air 08/21/22 14:55 178/74 H 96 Room Air Pain Intensity Back: Pain Intensity: 10 Transfer of Care Handoff Completed per policy Notes Mental Status: alert / awake / arousable Patient Amnestic to Procedure: Yes Nausea / Vomiting: adequately controlled Pain: adequately controlled Airway Patency, RR, SpO2: stable & adequate BP & HR: stable & adequate Hydration State: stable & adequate Anesthetic Complications: no major complications apparent
--- NOTE | 2022-01-26 17:48 | Hospitalist Progress Note ---
Date of Service January 26, 2022 Assessment & Plan (1) Intractable back pain: (2) Burst fracture of thoracic vertebra: (3) Pathologic fracture of thoracic vertebrae: (4) Neuroendocrine tumor: (5) Insulin dependent diabetes mellitus: (6) ESRD (end stage renal disease): Plan 56-year-old female with metastatic neuroendocrine tumor presented to ED with severe back pain due to pathologic burst fracture of thoracic vertebra CT thoracic vertebra 1. No significant change from 01/21/2022. 2. Again seen is an osteolytic destructive lesion of the T6 vertebral body with a severe burst type pathologic compression fracture. 3. There is a large paravertebral soft tissue component to the T6 lesion, with associated indication/ erosive change involving T5, T7, and the left posterior 7th rib as above. 4. The large soft tissue component of the lesion invades the central canal and causes severe effacement of the thecal sac at T5 and T6. 5. No additional fracture is identified. Intractable back pain due to pathologic burst fracture T6 from metastatic neuroendocrine tumor, new lesions in T6 and L4 - Seen by radiation oncology who I spoke to today. Getting radiation treatment now- no need for urgent transfer- hopefully pain will be controlled with more radiation treatment - Seen by ortho and recommendation noted- also spoke with Dr Dean- plan for MRI spine once pain is controlled with radiation treatment. No need for urgent transfer currently as she is clinically stable with no neurological deficits - seen by pain management- continue methadone, iv tylenol, dilaudid prn, lidocaine patch. On calcitonin spray ESRD on HD TTS- fistula malfunctioned. s/p permacath insertion today. Dialysis per nephro. DM-2- continue basaglar, SSI, adjust as indicated Hypothyroidism. Continue Synthroid. Renal cyst. Needs followup Hyponatremia- stable at 131. monitor DVT ppx- sc heparin Dispo- still with intractable pain and getting radiation treatment and round the clock iv pain medications on top of methadone. [place] need MRI once pain is better controlled and able to lie down- if worsens in the interim, will need to transfer to tertiary center Admission and Anticipated Discharge Date Admission Date: January 21, 2022 Subjective Continues with severe intractable back pain. No focal neurological deficits, bowel bladder incontinence, no other issues. Physical Exam Physical Exam: General: sitting in bed, uncomfortable due to pain but not in acute distress, on room air HEENT: EOMI, PERRL, MMM Chest: Clear breath sounds bilaterally, no wheezes or crackles CVS: Regular rate and rhythm, normal heart sounds, no murmur Abdomen: Soft, non tender, not distended, normal bowel sounds Tenderness at thoracic spine at level of fracture Neuro: Awake, alert, oriented, conversing well, non focal Extremities: No edema Results & Data Results & Data ([facility]) Vital Signs (Past 12 Hours) Vital Signs Temp Pulse Pulse Pulse Pulse Resp BP 01/26/22 17:01 36.6 C 83 01/26/22 16:30 77 89/42 L 01/26/22 16:00 79 88/58 L 01/26/22 15:30 83 97/48 L 01/26/22 15:00 83 126/56 L 01/26/22 14:30 85 112/59 L 01/26/22 14:00 81 109/57 L 01/26/22 13:45 80 96/43 L 01/26/22 13:30 80 96/45 L 01/26/22 13:23 84 155/63 H 01/26/22 13:20 36.7 C 85 01/26/22 11:54 01/26/22 10:45 36.8 C 89 18 01/26/22 10:44 01/26/22 10:15 36.8 C 91 H 18 01/26/22 09:55 36.4 C L 91 H 18 01/26/22 09:40 36.2 C L 90 17 01/26/22 09:30 92 H 19 01/26/22 09:20 91 H 18 01/26/22 09:10 89 20 01/26/22 09:00 88 15 01/26/22 08:53 36.3 C L 80 16 01/26/22 07:36 36.2 C L 89 18 BP Pulse Ox O2 Del Method O2 Flow Rate 01/26/22 17:01 97/83 L 01/26/22 16:30 01/26/22 16:00 01/26/22 15:30 01/26/22 15:00 01/26/22 14:30 01/26/22 14:00 01/26/22 13:45 01/26/22 13:30 01/26/22 13:23 01/26/22 13:20 01/26/22 11:54 Room Air 01/26/22 10:45 127/82 95 01/26/22 10:44 Room Air 01/26/22 10:15 160/81 H 97 01/26/22 09:55 164/74 H 97 Room Air 01/26/22 09:40 184/72 H 98 Nasal Cannula 2 01/26/22 09:30 189/94 H 99 Nasal Cannula 2 01/26/22 09:20 183/94 H 99 Nasal Cannula 2 01/26/22 09:10 183/84 H 100 Nasal Cannula 2 01/26/22 09:00 178/99 H 98 Nasal Cannula 4 01/26/22 08:53 145/55 H 94 Nasal Cannula 4 01/26/22 07:36 184/100 H 98 Laboratory Results Short CBC 01/26/22 Range/Units 10:35 WBC 4.61 L (4.8-10.8) K/ul Hgb 10.3 L (12.0-16.0) g/dl Hct 33.2 L (34.1-44.9) % Plt Count 186 (130-400) K/uL BMP 01/26/22 10:35 Sodium 131 L Potassium 4.3 Chloride 100 Carbon Dioxide 24 BUN 57 H Creatinine 5.28 H* D Glucose 91 Calcium 11.2 H Medications Administered Current Inpatient Medications Calcitonin [place] (Calcitonin [place] Na 200 Iu/Ac 3.7 Ml Btl) 1 sprays NA DAILY K[facility] Stop: 02/21/22 08:59 Last Admin: 01/26/22 10:10 Dose: 1 sprays Calcium Carbonate (Calcium Carbonate 500 Mg Chewable Tab) 1,000 mg PO TID PRN PRN Reason: Indigestion Stop: 02/24/22 17:12 Last Admin: 01/25/22 17:23 Dose: 1,000 mg Dextrose (Dextrose 50% 50 Ml Syringe) 25 - 50 ml IV UD PRN; Protocol PRN Reason: Hypoglycemia Protocol Stop: 02/20/22 23:29 Glucagon (Glucagon For Inj 1 Mg Vial) 1 mg IM UD PRN; Protocol PRN Reason: Hypoglycemia Protocol Stop: 02/20/22 23:29 Glucose (Glucose 40% Gel 15 Gm Tube) 15 - 30 gm PO UD PRN; Protocol PRN Reason: Hypoglycemia Protocol Stop: 02/20/22 23:29 Glucose (Glucose 10 Tab/Tube) 4 - 8 tab PO UD PRN; Protocol PRN Reason: Hypoglycemia Protocol Stop: 02/20/22 23:29 Heparin Sodium (Porcine) (Heparin Sod 5,000 Unit/0.5 Ml Vial) 5,000 units SQ Q8 KIRT Stop: 02/21/22 05:59 Last Admin: 01/26/22 12:37 Dose: 5,000 units Hydromorphone HCl (Hydromorphone Inj 0.5 Mg/0.5 Ml Syr) 1 mg IV Q3H PRN PRN Reason: Pain Stop: 02/05/22 00:20 Last Admin: 01/26/22 16:25 Dose: 1 mg Hydromorphone HCl (Hydromorphone Hcl 2 Mg Tab) 2 mg PO Q3H PRN PRN Reason: pain Stop: 02/09/22 08:29 Sodium Chloride (Nss) 500 mls @ 0 mls/hr IV .Q0M KIRT Stop: 02/22/22 09:44 Acetaminophen (Ofirmev) 1,000 mg in 100 mls @ 400 mls/hr IV Q8H KIRT Stop: 01/29/22 10:44 Last Infusion: 01/26/22 12:42 Dose: Infused Insulin Aspart (Insulin Aspart Per Unit) 0 units SC ACHS KIRT Stop: 02/21/22 07:29 Last Admin: 01/26/22 17:07 Dose: Not Given Insulin Glargine (Lantus Per Unit Charge) 20 units SQ DAILY KIRT Stop: 02/21/22 08:59 Last Admin: 01/26/22 10:11 Dose: 20 units Lactobacillus Acidophilus (Advanced Probiotic 1250 Mg Capsule) 1 cap PO BID KIRT Stop: 02/21/22 08:59 Last Admin: 01/26/22 10:11 Dose: 1 cap Lactulose (Lactulose Syrup 30 Gm/45 Ml Udp) 30 gm PO DAILY KIRT Stop: 02/21/22 08:59 Last Admin: 01/26/22 10:10 Dose: 30 gm Levothyroxine Sodium (Levothyroxine Sodium 125 Mcg Tablet) 125 mcg PO DAILYBB KIRT Stop: 02/21/22 06:29 Last Admin: 01/26/22 05:08 Dose: 125 mcg Lidocaine (Lidocaine 5% 1 Patch) 1 patch TD QAM [facility] Stop: 02/24/22 12:14 Last Admin: 01/26/22 10:10 Dose: 1 patch Methadone HCl (Methadone Hcl 10 Mg Tab) 10 mg PO TID [facility] Stop: 02/05/22 08:59 Last Admin: 01/26/22 12:37 Dose: 10 mg Miscellaneous (Carbohydrates For Hypoglycemia ) 15 - 30 gm PO UD PRN PRN Reason: Hypoglycemia Treatment Stop: 02/20/22 23:29 Miscellaneous (Remove Lidoderm Patch) 1 each N/A DAILY@2100 [facility] Stop: 02/24/22 20:59 Last Admin: 01/25/22 22:11 Dose: 1 each Ondansetron HCl (Ondansetron Inj 2 Mg/Ml 2 Ml Vial) 4 mg IV Q6H PRN PRN Reason: Nausea Stop: 02/20/22 23:12 Last Admin: 01/22/22 17:57 Dose: 4 mg Sevelamer HCl (Sevelamer Hcl 800 Mg Tablet) 1,600 mg PO TIDM [facility] Stop: 02/21/22 07:59 Last Admin: 01/26/22 17:39 Dose: 1,600 mg Vitamin B Complex/Folic Acid (Nephrocaps) 1 cap PO DAILY [facility] Stop: 02/21/22 08:59 Last Admin: 01/26/22 10:12 Dose: 1 cap
[2022-01-27] MEDS: HYDROmorphone INJ 0.5 MG/0.5 ML SYR IV PRN ×4 (00:35→23:55)
[2022-01-27] MEDS: ACETAMINOPHEN 1,000 MG/100 ML VIAL IV SCH ×3 (02:34→18:33)
[2022-01-27] MEDS: HEPARIN SOD 5,000 UNIT/0.5 ML VIAL SQ SCH ×3 (05:40→20:40)
[2022-01-27] MEDS: LEVOTHYROXINE SODIUM 125 MCG TABLET PO SCH (05:40)
[2022-01-27] MEDS: HYDROmorphone HCL 2 MG TAB PO PRN ×2 (05:44→14:34)
--- NOTE | 2022-01-27 08:32 | Pain Management Progress Note ---
Date of Service January 27, 2022 Assessment & Plan (1) Radicular pain of thoracic region: (2) Pathologic fracture of thoracic vertebrae: (3) ESRD (end stage renal disease): (4) Neuroendocrine tumor: (5) Metastatic disease: (6) Insulin dependent diabetes mellitus: Plan 1. Recommend maintaining methadone 10 mg 3 times daily 2. Continue with calcitonin spray 1 spray in 1 nostril daily with alternating nostrils 3. Recommend patient use PO hydromorphone 2mg PO q3 prn pain prior to IV hydromorphone as needed breakthrough pain. Patient is understanding of this. 4. If pain is not controlled then could further increase Methadone dosing. 5. Will sign off on the patient. Please contact with any questions or if patient needs reevaluated. Thank you. Admission and Anticipated Discharge Date Admission Date: January 21, 2022 Subjective 56 year old female with neuroendocrine tumor, end stage renal disease, and intractable back pain due to burst fracture of thoracic spine. She is currently receiving Methadone 10mg TID, Dilaudid 1mg (5mg over the past 24 hours), and PO Dilaudid 2mg (first taken this morning). She states that her pain is well cont rolled with the current regimen. The PO Dilaudid this morning was effective. There is increased pain when she is transferring. Once she gets into a comfortable position the pain is relieved. She does still require the IV Dilaudid prior to transferring. She is to go to radiation today. No neuro deficits. No side effects to medications. Physical Exam Physical Exam: GENERAL: This is a 56 year old female laying supine in hospital bed. HEAD/FACE: Normocephalic and atraumatic. EYES: No drainage or conjunctival injection. ENT: Nose without bleeding or discharge. Oral mucosa moist. NECK: Full ROM without apparent pain. No swelling or masses noted. RESPIRATORY: Patient with unlabored breathing. No signs of respiratory distress. CHEST/AXILLA: Chest movement symmetrical. No deformities noted. ABDOMEN/GI: No distension SKIN: [place], warm and dry. No rash noted. MS/EXTREMITY: No swelling, no deformities. Moving extremities appropriately. NEURO: Alert and appears oriented. Speech is fluent. Cranial Nerves are grossly intact. PSYCH: Alert, pleasant, affect is calm
[2022-01-27] MEDS: NEPHROCAPS PO SCH (08:47)
[2022-01-27] MEDS: SEVELAMER HCL 800 MG TABLET PO SCH ×3 (08:47→17:16)
[2022-01-27] MEDS: ADVANCED PROBIOTIC 1250 MG CAPSULE PO SCH ×2 (08:47→20:39)
[2022-01-27] MEDS: LIDOCAINE 5% 1 PATCH TD SCH (08:48)
[2022-01-27] MEDS: CALCITONIN SALMON NA 200 IU/AC 3.7 ML BTL SCH (08:49)
[2022-01-27] MEDS: LACTULOSE SYRUP 30 GM/45 ML UDP PO SCH (08:49)
[2022-01-27] MEDS: METHADONE HCL 10 MG TAB PO SCH ×3 (09:02→20:40)
[2022-01-27] MEDS: INSULIN ASPART PER UNIT SC SCH ×4 (09:02→20:38)
[2022-01-27] MEDS: LANTUS PER UNIT CHARGE SQ SCH (09:02)
--- NOTE | 2022-01-27 09:59 | Communication Note ---
Date of Service: January 27, 2022 Pt may begin use of her AVF for HD when pain/swelling resolves. If the outpt HD unit has problems with infiltration or flow, would be happy to eval AVF with fistulagram. Please call if needed.
--- NOTE | 2022-01-27 11:42 | Hospitalist Progress Note ---
Date of Service January 27, 2022 Assessment & Plan (1) Intractable back pain: (2) Burst fracture of thoracic vertebra: (3) Pathologic fracture of thoracic vertebrae: (4) Neuroendocrine tumor: (5) Insulin dependent diabetes mellitus: (6) ESRD (end stage renal disease): Plan 56-year-old female with metastatic neuroendocrine tumor presented to ED with severe back pain due to pathologic burst fracture of thoracic vertebra CT thoracic vertebra 1. No significant change from 01/21/2022. 2. Again seen is an osteolytic destructive lesion of the T6 vertebral body with a severe burst type pathologic compression fracture. 3. There is a large paravertebral soft tissue component to the T6 lesion, with associated indication/ erosive change involving T5, T7, and the left posterior 7th rib as above. 4. The large soft tissue component of the lesion invades the central canal and causes severe effacement of the thecal sac at T5 and T6. 5. No additional fracture is identified. Intractable back pain due to pathologic burst fracture T6 from metastatic neuroendocrine tumor, new lesions in T6 and L4 - Seen by radiation oncology and spoke with radiation oncologist. Getting radiation treatment now- no need for urgent transfer- hopefully pain will be controlled with more radiation treatment - Seen by ortho and recommendation noted- also spoke with Dr Dean- plan for MRI spine once pain is controlled with radiation treatment. No need for urgent transfer currently as she is clinically stable with no neurological deficits - seen by pain management- continue methadone, iv tylenol, dilaudid prn, lidocaine patch. On calcitonin spray ESRD on HD TTS- fistula malfunctioned. s/p permacath insertion yesterday. Dialysis per nephro. DM-2- continue basaglar, SSI, adjust as indicated Hypothyroidism. Continue Synthroid. Renal cyst. Needs followup Hyponatremia- stable at 131. monitor Hypercalcemia- recheck in am. Might need bisphosphonate if trends high. DVT ppx- sc heparin Dispo- still with intractable pain and getting radiation treatment and round the clock iv pain medications on top of methadone. [place] need MRI once pain is better controlled and able to lie down- if worsens in the interim, will need to transfer to tertiary center Admission and Anticipated Discharge Date Admission Date: January 21, 2022 Subjective Feels better today. Pain is improved and able to lie down today. She took po dilaudid this morning but she is afraid she is going to have more pain when she goes down for radiation therapy. Physical Exam Physical Exam: General: lying in bed, not in acute distress, on room air HEENT: EOMI, PERRL, MMM Chest: Clear breath sounds bilaterally, no wheezes or crackles CVS: Regular rate and rhythm, normal heart sounds, no murmur Abdomen: Soft, non tender, not distended, normal bowel sounds Tenderness at thoracic spine at level of fracture Neuro: Awake, alert, oriented, conversing well, non focal Extremities: No edema Results & Data Results & Data ([facility]) Vital Signs (Past 12 Hours) Vital Signs Temp Pulse Resp BP Pulse Ox 01/27/22 08:05 36.4 C L 82 18 184/96 H 95 Medications Administered Current Inpatient Medications Calcitonin Wilson (Calcitonin Wilson Na 200 Iu/Ac 3.7 Ml Btl) 1 sprays NA DAILY [facility] Stop: 02/21/22 08:59 Last Admin: 01/27/22 08:49 Dose: 1 sprays Calcium Carbonate (Calcium Carbonate 500 Mg Chewable Tab) 1,000 mg PO TID PRN PRN Reason: Indigestion Stop: 02/24/22 17:12 Last Admin: 01/25/22 17:23 Dose: 1,000 mg Dextrose (Dextrose 50% 50 Ml Syringe) 25 - 50 ml IV UD PRN; Protocol PRN Reason: Hypoglycemia Protocol Stop: 02/20/22 23:29 Glucagon (Glucagon For Inj 1 Mg Vial) 1 mg IM UD PRN; Protocol PRN Reason: Hypoglycemia Protocol Stop: 02/20/22 23:29 Glucose (Glucose 40% Gel 15 Gm Tube) 15 - 30 gm PO UD PRN; Protocol PRN Reason: Hypoglycemia Protocol Stop: 02/20/22 23:29 Glucose (Glucose 10 Tab/Tube) 4 - 8 tab PO UD PRN; Protocol PRN Reason: Hypoglycemia Protocol Stop: 02/20/22 23:29 Heparin Sodium (Porcine) (Heparin Sod 5,000 Unit/0.5 Ml Vial) 5,000 units SQ Q8 [facility] Stop: 02/21/22 05:59 Last Admin: 01/27/22 05:40 Dose: 5,000 units Hydromorphone HCl (Hydromorphone Inj 0.5 Mg/0.5 Ml Syr) 1 mg IV Q3H PRN PRN Reason: Pain Stop: 02/05/22 00:20 Last Admin: 01/27/22 10:34 Dose: 1 mg Hydromorphone HCl (Hydromorphone Hcl 2 Mg Tab) 2 mg PO Q3H PRN PRN Reason: pain Stop: 02/09/22 08:29 Last Admin: 01/27/22 05:44 Dose: 2 mg Sodium Chloride (Nss) 500 mls @ 0 mls/hr IV .Q0M [facility] Stop: 02/22/22 09:44 Acetaminophen (Ofirmev) 1,000 mg in 100 mls @ 400 mls/hr IV Q8H [facility] Stop: 01/29/22 10:44 Last Admin: 01/27/22 10:35 Dose: 400 mls/hr Insulin Aspart (Insulin Aspart Per Unit) 0 units SC ACHS [facility] Stop: 02/21/22 07:29 Last Admin: 01/27/22 09:02 Dose: 4 units Insulin Glargine (Lantus Per Unit Charge) 20 units SQ DAILY [facility] Stop: 02/21/22 08:59 Last Admin: 01/27/22 09:02 Dose: 20 units Lactobacillus Acidophilus (Advanced Probiotic 1250 Mg Capsule) 1 cap PO BID [facility] Stop: 02/21/22 08:59 Last Admin: 01/27/22 08:47 Dose: 1 cap Lactulose (Lactulose Syrup 30 Gm/45 Ml Udp) 30 gm PO DAILY [facility] Stop: 02/21/22 08:59 Last Admin: 01/27/22 08:49 Dose: Not Given Levothyroxine Sodium (Levothyroxine Sodium 125 Mcg Tablet) 125 mcg PO DAILYBB [facility] Stop: 02/21/22 06:29 Last Admin: 01/27/22 05:40 Dose: 125 mcg Lidocaine (Lidocaine 5% 1 Patch) 1 patch TD QAM [facility] Stop: 02/24/22 12:14 Last Admin: 01/27/22 08:48 Dose: 1 patch Methadone HCl (Methadone Hcl 10 Mg Tab) 10 mg PO TID [facility] Stop: 02/05/22 08:59 Last Admin: 01/27/22 09:02 Dose: 10 mg Miscellaneous (Carbohydrates For Hypoglycemia ) 15 - 30 gm PO UD PRN PRN Reason: Hypoglycemia Treatment Stop: 02/20/22 23:29 Miscellaneous (Remove Lidoderm Patch) 1 each N/A DAILY@2100 [facility] Stop: 02/24/22 20:59 Last Admin: 01/26/22 20:05 Dose: 1 each Ondansetron HCl (Ondansetron Inj 2 Mg/Ml 2 Ml Vial) 4 mg IV Q6H PRN PRN Reason: Nausea Stop: 02/20/22 23:12 Last Admin: 01/22/22 17:57 Dose: 4 mg Sevelamer HCl (Sevelamer Hcl 800 Mg Tablet) 1,600 mg PO TIDM [facility] Stop: 02/21/22 07:59 Last Admin: 01/27/22 08:47 Dose: 1,600 mg Vitamin B Complex/Folic Acid (Nephrocaps) 1 cap PO DAILY [facility] Stop: 02/21/22 08:59 Last Admin: 01/27/22 08:47 Dose: 1 cap
--- NOTE | 2022-01-27 14:39 | Nephrology Progress Note ---
Date of Service January 27, 2022 Assessment & Plan Admission and Anticipated Discharge Date Admission Date: January 21, 2022 Subjective Assessment & Plan (1) ESRD (end stage renal disease): Plan: last HD was 01/26; temp R groin dialysis cath as dialysis access currently 01/23 tolerated HD 01/23 w/ acceptable chemistries (2) Dialysis AV fistula malfunction: Plan: endovascular AVF infiltrated; will need 2 week rest as per dr Strong tunneled dialysis catheter was used yesterday. next HD will be tomorrow most likely. Pathologic fracture of thoracic vertebrae: Plan: getting palliative XRT; defer to primary service if special precautions needed w/ transfers, spine twists/position changes Subjective Seen in follow-up for ESRD. Patient had a PermCath placement and HD yesterday. She is resting comfortably. Review of Systems Review of Systems: All other systems were reviewed and negative except as noted in HPI Physical Exam Physical Exam: General exam: Appears comfortable, no acute distress HEENT: Pupils are equal and reactive to light Neck: No JVD, neck is supple trachea is midline Respiratory system: Clear breath sounds bilaterally. Gastrointestinal: Abdomen is soft, non distended, non tender, bowel sounds are present CVS: Regular rate and rhythm. No murmurs, rubs or gallops Musculoskeletal: No joint or muscle tenderness Extremities: Non tender, no edema, peripheral pulses are present Neuro: Oriented, no tremors, no focal neurological deficits Results & Data ([facility]) Vital Signs (Past 12 Hours) Vital Signs Temp Pulse Resp BP Pulse Ox 01/27/22 08:05 36.4 C L 82 18 184/96 H 95
[2022-01-28] MEDS: ACETAMINOPHEN 1,000 MG/100 ML VIAL IV SCH ×3 (02:13→20:08)
[2022-01-28] MEDS: HEPARIN SOD 5,000 UNIT/0.5 ML VIAL SQ SCH ×3 (05:48→20:37)
[2022-01-28] MEDS: LEVOTHYROXINE SODIUM 125 MCG TABLET PO SCH (05:48)
[2022-01-28 06:51] LABS: Hematocrit (blood only) 32.9 % (34.1-44.9); Hemoglobin 10.4 g/dl (12.0-16.0); Mean Corpuscular Hgb Conc 31.6 g/dL (32.0-36.0); Mean Corpuscular Volume 98.2 fL (80.0-100.0); Mean Platelet Volume 8.7 fL (9.4-12.3); Platelet Count 172 K/uL (130-400); RDW Coefficient of Variation 17.1 % (11.5-14.5); RDW Standard Deviation 62.3 fL (36.4-46.3); Red Blood Count 3.35 M/uL (3.93-5.22); White Blood Count 4.02 K/ul (4.8-10.8)
[2022-01-28] MEDS ORDERED: SODIUM CHLORIDE 0.9% 1000ML 1,000 ML IV PRN (07:00)
[2022-01-28 07:52] LABS: Calcium 10.9 mg/dl (8.5-10.1); Creatinine Clr Calc Pharmacy 14.6 ml/min; Est GFR (African American) 11.1 ml/min; Est GFR (Non-African American) 9.6 ml/min; Magnesium 3.8 mg/dl (1.7-2.4); Potassium 3.8 mmol/L (3.5-5.1)
[2022-01-28] MEDS: INSULIN ASPART PER UNIT SC SCH ×4 (08:02→20:32)
[2022-01-28] MEDS: CALCITONIN SALMON NA 200 IU/AC 3.7 ML BTL SCH (08:03)
[2022-01-28] MEDS: SEVELAMER HCL 800 MG TABLET PO SCH ×3 (08:03→17:13)
[2022-01-28] MEDS: ADVANCED PROBIOTIC 1250 MG CAPSULE PO SCH ×2 (08:04→20:31)
[2022-01-28] MEDS: LIDOCAINE 5% 1 PATCH TD SCH (08:04)
[2022-01-28] MEDS: LACTULOSE SYRUP 30 GM/45 ML UDP PO SCH (08:04)
[2022-01-28] MEDS: NEPHROCAPS PO SCH (08:28)
[2022-01-28] MEDS: METHADONE HCL 10 MG TAB PO SCH ×3 (08:28→20:30)
[2022-01-28] MEDS: LANTUS PER UNIT CHARGE SQ SCH (08:52)
[2022-01-28] MEDS: HYDROmorphone INJ 0.5 MG/0.5 ML SYR IV PRN ×3 (10:36→17:40)
--- NOTE | 2022-01-28 10:48 | Nephrology Progress Note ---
Date of Service January 28, 2022 Assessment & Plan Admission and Anticipated Discharge Date Admission Date: January 21, 2022 Subjective Assessment & Plan (1) ESRD (end stage renal disease): Plan: last HD was 01/26; temp R groin dialysis cath as dialysis access currently 01/23 Will postpone dialysis till tomorrow given schedule conflict (2) Dialysis AV fistula malfunction: Plan: endovascular AVF infiltrated; will need 2 week rest as per dr Strong tunneled dialysis catheter was used yesterday. next HD will be tomorrow. Pathologic fracture of thoracic vertebrae: Plan: getting palliative XRT; defer to primary service if special precautions needed w/ transfers, spine twists/position changes Subjective Seen in follow-up for ESRD.Patient had a PermCath placement and HD Wednesday. She is resting comfortably. Review of Systems Review of Systems: All other systems were reviewed and negative except as noted in HPI Physical Exam Physical Exam: General exam: Appears comfortable, no acute distress HEENT: Pupils are equal and reactive to light Neck: No JVD, neck is supple trachea is midline Respiratory system: Clear breath sounds bilaterally. Gastrointestinal: Abdomen is soft, non distended, non tender, bowel sounds are present CVS: Regular rate and rhythm. No murmurs, rubs or gallops Musculoskeletal: No joint or muscle tenderness Extremities: Non tender, no edema, peripheral pulses are present Neuro: Oriented, no tremors, no focal neurological deficits Results & Data ([facility]) Vital Signs (Past 12 Hours) Vital Signs Temp Pulse Resp BP Pulse Ox O2 Del Method 01/28/22 08:00 36.6 C 87 18 187/80 H 95 Room Air 01/28/22 00:01 36.6 C 80 18 152/70 H 87 L Room Air
[2022-01-28] MEDS ORDERED: LORazepam 0.5 MG in SYRINGE 0.25 ML IV PRN (12:45)
--- NOTE | 2022-01-28 15:23 | Hospitalist Progress Note ---
Date of Service January 28, 2022 Assessment & Plan (1) Intractable back pain: (2) Pathologic fracture of thoracic vertebrae: (3) Burst fracture of thoracic vertebra: (4) Neuroendocrine tumor: (5) ESRD (end stage renal disease): (6) Insulin dependent diabetes mellitus: Plan (1) Intractable back pain: (2) Burst fracture of thoracic vertebra: (3) Pathologic fracture of thoracic vertebrae: (4) Neuroendocrine tumor: (5) Insulin dependent diabetes mellitus: (6) ESRD (end stage renal disease): A/P 56-year-old female with metastatic neuroendocrine tumor presented to ED with severe back pain due to pathologic burst fracture of thoracic vertebra CT thoracic vertebra 1. No significant change from 01/21/2022. 2. Again seen is an osteolytic destructive lesion of the T6 vertebral body with a severe burst type pathologic compression fracture. 3. There is a large paravertebral soft tissue component to the T6 lesion, with associated indication/ erosive change involving T5, T7, and the left posterior 7th rib as above. 4. The large soft tissue component of the lesion invades the central canal and causes severe effacement of the thecal sac at T5 and T6. 5. No additional fracture is identified. Intractable back pain due to pathologic burst fracture T6 from metastatic neuroendocrine tumor, new lesions in T6 and L4 - Seen by radiation oncology and spoke with radiation oncologist. Getting radiation treatment now- no need for urgent transfer- pain is getting controlled with more radiation treatment - Seen by ortho and recommendation noted- also spoke with Dr Dean- plan for MRI spine once pain is controlled with radiation treatment. No need for urgent transfer currently as she is clinically stable with no neurological deficits - seen by pain management- continue methadone, iv tylenol, dilaudid prn, li docaine patch. On calcitonin spray - since pain is now controlled and able to lie flat, will get MRI spine as per ortho recommendation. iv ativan 0.5 mg once prior to MRI for sedation. ESRD on HD TTS- fistula malfunctioned. s/p permacath insertion. Dialysis per nephro. DM-2- continue basaglar, SSI, adjust as indicated Hypothyroidism. Continue Synthroid. Renal cyst. Needs followup Hyponatremia- stable at 131. monitor Hypercalcemia- mild, likely from her bone mets. Manage per nephro. No indication for bisphosphonate currently. Monitor. DVT ppx- sc heparin Dispo- Continue radiation treatment D4/10. Will get MRI spine and reach out to ortho for further recommendation. PT OT eval Admission and Anticipated Discharge Date Admission Date: January 21, 2022 Subjective She feels significantly better today. Pain is much better. She was able to lie flat all night. She was able to stand up and transfer. Radiation treatment is working. She is agreeable to MRI but requesting ativan for sedation prior to that. Physical Exam Physical Exam: General:Sitting in wheelchair, not in distress, on room air Chest: Permacath noted. Clear breath sounds bilaterally, no wheezes or crackles CVS: Regular rate and rhythm, normal heart sounds, no murmur thoracic spine tenderness at level of T6 Abdomen: Soft, non tender, not distended, normal bowel sounds Neuro: Awake, alert, oriented, conversing well, non focal Extremities: No edema. LLE on boot Results & Data Results & Data ([facility]) Vital Signs (Past 12 Hours) Vital Signs Temp Pulse Resp BP Pulse Ox O2 Del Method 01/28/22 08:00 36.6 C 87 18 187/80 H 95 Room Air Laboratory Results Short CBC 01/28/22 Range/Units 06:13 WBC 4.02 L (4.8-10.8) K/ul Hgb 10.4 L (12.0-16.0) g/dl Hct 32.9 L (34.1-44.9) % Plt Count 172 (130-400) K/uL BMP 01/28/22 06:13 Sodium 130 L Potassium 3.8 Chloride 99 Carbon Dioxide 24 BUN 62 H Creatinine 4.77 H* D Glucose 86 Calcium 10.9 H Medications Administered Current Inpatient Medications Calcitonin Schneider (Calcitonin Schneider Na 200 Iu/Ac 3.7 Ml Btl) 1 sprays NA DAILY [facility] Stop: 02/21/22 08:59 Last Admin: 01/28/22 08:03 Dose: 1 sprays Calcium Carbonate (Calcium Carbonate 500 Mg Chewable Tab) 1,000 mg PO TID PRN PRN Reason: Indigestion Stop: 02/24/22 17:12 Last Admin: 01/25/22 17:23 Dose: 1,000 mg Dextrose (Dextrose 50% 50 Ml Syringe) 25 - 50 ml IV UD PRN; Protocol PRN Reason: Hypoglycemia Protocol Stop: 02/20/22 23:29 Glucagon (Glucagon For Inj 1 Mg Vial) 1 mg IM UD PRN; Protocol PRN Reason: Hypoglycemia Protocol Stop: 02/20/22 23:29 Glucose (Glucose 40% Gel 15 Gm Tube) 15 - 30 gm PO UD PRN; Protocol PRN Reason: Hypoglycemia Protocol Stop: 02/20/22 23:29 Glucose (Glucose 10 Tab/Tube) 4 - 8 tab PO UD PRN; Protocol PRN Reason: Hypoglycemia Protocol Stop: 02/20/22 23:29 Heparin Sodium (Porcine) (Heparin Sod 5,000 Unit/0.5 Ml Vial) 5,000 units SQ Q8 [facility] Stop: 02/21/22 05:59 Last Admin: 01/28/22 13:34 Dose: 5,000 units Hydromorphone HCl (Hydromorphone Inj 0.5 Mg/0.5 Ml Syr) 1 mg IV Q3H PRN PRN Reason: Pain Stop: 02/05/22 00:20 Last Admin: 01/28/22 14:41 Dose: 1 mg Hydromorphone HCl (Hydromorphone Hcl 2 Mg Tab) 2 mg PO Q3H PRN PRN Reason: pain Stop: 02/09/22 08:29 Last Admin: 01/27/22 14:34 Dose: 2 mg Sodium Chloride (Nss) 500 mls @ 0 mls/hr IV .Q0M [facility] Stop: 02/22/22 09:44 Acetaminophen (Ofirmev) 1,000 mg in 100 mls @ 400 mls/hr IV Q8H [facility] Stop: 01/29/22 10:44 Last Infusion: 01/28/22 10:55 Dose: Infused Lorazepam 0.5 mg/ Syringe 0.5 mls @ 2 mls/min IV ONCE PRN PRN Reason: sedation prior to MRI Stop: 01/29/22 12:44 Insulin Aspart (Insulin Aspart Per Unit) 0 units SC ACHS [facility] Stop: 02/21/22 07:29 Last Admin: 01/28/22 12:16 Dose: 6 units Insulin Glargine (Lantus Per Unit Charge) 20 units SQ DAILY [facility] Stop: 02/21/22 08:59 Last Admin: 01/28/22 08:52 Dose: 20 units Lactobacillus Acidophilus (Advanced Probiotic 1250 Mg Capsule) 1 cap PO BID [facility] Stop: 02/21/22 08:59 Last Admin: 01/28/22 08:04 Dose: Not Given Lactulose (Lactulose Syrup 30 Gm/45 Ml Udp) 30 gm PO DAILY [facility] Stop: 02/21/22 08:59 Last Admin: 01/28/22 08:04 Dose: Not Given Levothyroxine Sodium (Levothyroxine Sodium 125 Mcg Tablet) 125 mcg PO DAILYBB [facility] Stop: 02/21/22 06:29 Last Admin: 01/28/22 05:48 Dose: 125 mcg Lidocaine (Lidocaine 5% 1 Patch) 1 patch TD QAM [facility] Stop: 02/24/22 12:14 Last Admin: 01/28/22 08:04 Dose: 1 patch Methadone HCl (Methadone Hcl 10 Mg Tab) 10 mg PO TID [facility] Stop: 02/05/22 08:59 Last Admin: 01/28/22 13:34 Dose: 10 mg Miscellaneous (Carbohydrates For Hypoglycemia ) 15 - 30 gm PO UD PRN PRN Reason: Hypoglycemia Treatment Stop: 02/20/22 23:29 Miscellaneous (Remove Lidoderm Patch) 1 each N/A DAILY@2100 [facility] Stop: 02/24/22 20:59 Last Admin: 01/27/22 20:40 Dose: 1 each Ondansetron HCl (Ondansetron Inj 2 Mg/Ml 2 Ml Vial) 4 mg IV Q6H PRN PRN Reason: Nausea Stop: 02/20/22 23:12 Last Admin: 01/22/22 17:57 Dose: 4 mg Sevelamer HCl (Sevelamer Hcl 800 Mg Tablet) 1,600 mg PO TIDM [facility] Stop: 02/21/22 07:59 Last Admin: 01/28/22 12:09 Dose: 1,600 mg Vitamin B Complex/Folic Acid (Nephrocaps) 1 cap PO DAILY [facility] Stop: 02/21/22 08:59 Last Admin: 01/28/22 08:28 Dose: Not Given
[2022-01-29] MEDS: ACETAMINOPHEN 1,000 MG/100 ML VIAL IV SCH (03:17)
[2022-01-29] MEDS: HEPARIN SOD 5,000 UNIT/0.5 ML VIAL SQ SCH ×2 (05:29→13:29)
[2022-01-29] MEDS: LEVOTHYROXINE SODIUM 125 MCG TABLET PO SCH (05:31)
[2022-01-29] MEDS: HYDROmorphone HCL 2 MG TAB PO PRN ×3 (06:31→13:28)
[2022-01-29 06:47] VITALS: O2SAT 99
[2022-01-29] MEDS: CALCITONIN SALMON NA 200 IU/AC 3.7 ML BTL SCH (07:55)
[2022-01-29] MEDS: LIDOCAINE 5% 1 PATCH TD SCH (07:56)
[2022-01-29] MEDS: SEVELAMER HCL 800 MG TABLET PO SCH ×2 (07:58→12:15)
[2022-01-29] MEDS: ADVANCED PROBIOTIC 1250 MG CAPSULE PO SCH (07:59)
[2022-01-29] MEDS: NEPHROCAPS PO SCH (07:59)
[2022-01-29] MEDS: LACTULOSE SYRUP 30 GM/45 ML UDP PO SCH (08:00)
[2022-01-29] MEDS: METHADONE HCL 10 MG TAB PO SCH ×2 (08:06→13:24)
[2022-01-29] MEDS: INSULIN ASPART PER UNIT SC SCH ×2 (08:06→12:15)
[2022-01-29] MEDS: LANTUS PER UNIT CHARGE SQ SCH (08:06)
--- NOTE | 2022-01-29 09:12 | Magnetic Resonance Report ---
MRI OF THE LUMBAR SPINE WITHOUT CONTRAST CLINICAL HISTORY: back pain, pathologic fracture d/t mets COMPARISON STUDY: Lumbar spine MRI July 28, 2017. PET/CT April 16, 2021. CT of the abdomen an d pelvis January 21, 2022. TECHNIQUE: Utilizing a 1.5 Yelitza magnet and dedicated coil, multiplanar, multiecho imaging of the leo mbar spine was performed without IV contrast. FINDINGS: Please note that the thoracic spine MRI will be reported separately. For purposes of numbering on thi s exam, the L5-S1 disc space is assigned to axial image 33 of 40. The conus terminates at the L1 leve l. Splenomegaly is better depicted on abdominal CT of January 21, 2022. There is decreased signal inte nsity within the liver and spleen on this exam. This may reflect secondary hemochromatosis due to iro n overload. Increased T1 signal within the lower lumbar spine and sacrum is likely related to radiati on therapy. A few suspected renal cysts are present. There is diminished T1 and T2 marrow signal with in the lower thoracic and upper lumbar spine. A 2.1 cm lesion along the superior endplate of L5 repre sents a skeletal lesion which was shown on prior MRI. This slight loss of height of the superior endp late which is unchanged. L4 pathologic burst fracture is noted with 50% loss of vertebral body height . This is similar to CT of January 21, 2022. Loss of height is new since PET/CT of April 16, 2021. There is 7 mm of retropulsion with suspected small epidural component. These findings result in sever e narrowing of the central canal at the L4 level. Patent AP diameter canal is 4 mm. There is severe n arrowing of both lateral recesses at this level. There is tortuosity/redundancy of the nerve roots du e to severe central canal stenosis at this level. Otherwise, the central canal is patent within the l umbar spine. There is moderate to severe narrowing of the bilateral L3-L4 and L4-L5 neural foramen. IMPRESSION: 1. Multifocal marrow replacement consistent with skeletal metastatic disease. 2. Pathologic L4 burst fracture with 7 mm of retropulsion and suspected epidural extension. Findings result in severe narrowing of the central canal and both lateral recesses at this level. Findings cou ld be correlated with clinical evidence for cauda equina syndrome. Otherwise, patent central canal wi thin the lumbar spine. 3. Moderate to severe bilateral neural foraminal narrowing at the L3-L4 and L4-L5 levels. ACT 112: Negative or not required by law. Electronically signed by: Marvin Morgan M.D. 01/29/2022 9:11 AM
[2022-01-29 09:52] LABS: BUN Creatinine Ratio 14.4 (10-20); Calcium 11.5 mg/dl (8.5-10.1); Creatinine Clr Calc Pharmacy 11.3 ml/min; Est GFR (African American) 8.2 ml/min; Est GFR (Non-African American) 7.1 ml/min; Potassium 4.3 mmol/L (3.5-5.1)
--- NOTE | 2022-01-29 10:51 | Magnetic Resonance Report ---
MR thoracic spine wo con CLINICAL HISTORY: back pain, pathologic fracture d/t mets TECHNIQUE: Multiplanar sequences through the thoracic spine were obtained, without intravenous contra st. Comparison: Comparison is made to CT thoracic spine 01/24/2022 FINDINGS: There is near complete loss of height of T6, new from prior exam. Retropulsion into the spinal canal resulting in moderate to severe canal stenosis, AP diameter 7 mm. There is likely severe neuroforamin al stenosis bilaterally at this level. Mild posterior disc bulges are seen most prominently at T8-T9 and T9-T10, without significant canal or neuroforaminal stenosis. Tumor involvement in the adjacent r ibs and vertebral bodies is partially visualized, comparable to prior exam. The spinal ligaments are intact, without evidence of disruption or abnormal signal intensity. The spi nal cord is normal in signal intensity and there is no evidence of cord contusion. There is no eviden ce of an extradural, intradural, extramedullary or intramedullary lesion. Visualized soft tissues are normal. IMPRESSION: Near complete loss of height of T6 with retropulsion, new from prior exam, compatible with previously noted pathologic burst fracture. There is moderate to severe canal stenosis, AP diameter 7 mm, witho ut evidence of cord edema. There is likely severe bilateral neuroforaminal stenosis. ACT 112: Negative or not required by law. Electronically signed by: Rm Flores M.D. 01/29/2022 10:49 AM
[2022-01-29 11:43] VITALS: TEMP 97.7
[2022-01-29] MEDS: HYDROmorphone INJ 0.5 MG/0.5 ML SYR IV PRN (13:24)
[2022-01-29 14:09] VITALS: PULSE 84
[2022-01-29 14:11] VITALS: BP 145/64
--- NOTE | 2022-01-29 14:35 | Nephrology Progress Note ---
Date of Service January 29, 2022 Assessment & Plan Admission and Anticipated Discharge Date Admission Date: January 21, 2022 Subjective Assessment & Plan (1) ESRD (end stage renal disease): Plan: last HD was 01/26; temp R groin dialysis cath as dialysis access currently 01/23 Next dialysis will be wednesday. had dialysis earlier today--2 kilo removed (2) Dialysis AV fistula malfunction: Plan: endovascular AVF infiltrated; will need 2 week rest as per dr Strong tunneled dialysis catheter was used . Pathologic fracture of thoracic vertebrae: Plan: getting palliative XRT; defer to primary service if special precautions needed w/ transfers, spine twists/position changes Subjective Seen in follow-up for ESRD.Patient had a PermCath placement and HD Wednesday and then earlier today. She is resting comfortably. Review of Systems Review of Systems: All other systems were reviewed and negative except as noted in HPI Physical Exam Physical Exam: General exam: Appears comfortable, no acute distress HEENT: Pupils are equal and reactive to light Neck: No JVD, neck is supple trachea is midline Respiratory system: Clear breath sounds bilaterally. Gastrointestinal: Abdomen is soft, non distended, non tender, bowel sounds are present CVS: Regular rate and rhythm. No murmurs, rubs or gallops Musculoskeletal: No joint or muscle tenderness Extremities: Non tender, no edema, peripheral pulses are present Neuro: Oriented, no tremors, no focal neurological deficits Results & Data ([facility]) Vital Signs (Past 12 Hours) Vital Signs Temp Pulse Pulse Pulse Resp BP BP 01/29/22 13:30 36.5 C 145/64 H 01/29/22 13:00 84 86/43 L 01/29/22 12:30 81 86/43 L 01/29/22 12:00 89 86/44 L 01/29/22 11:30 85 110/48 L 01/29/22 11:00 84 114/64 01/29/22 10:30 87 90/52 L 01/29/22 10:00 81 154/65 H 01/29/22 09:30 36.5 C 84 01/29/22 06:46 36.6 C 86 20 139/60 01/29/22 02:45 Pulse Ox O2 Del Method 01/29/22 13:30 01/29/22 13:00 01/29/22 12:30 01/29/22 12:00 01/29/22 11:30 01/29/22 11:00 01/29/22 10:30 01/29/22 10:00 01/29/22 09:30 01/29/22 06:46 99 Room Air 01/29/22 02:45 Room Air
--- NOTE | 2022-01-29 15:50 | Discharge Summary ---
Date of Service January 29, 2022 Admission HPI Per Admitting Provider A 56-year-old female with past medical history significant for type 2 diabetes, end-stage renal disease on hemodialysis, diabetic polyneuropathy, hyperlipidemia, history of hypothyroidism, hypertension, history of osteom yelitis of the left foot, status post treatment; follows with [facility], complete antibiotic course, anemia of chronic kidney disease, history of metastatic neuroendocrine cancer, deemed to be not a candidate for chemotherapy, status post radiation treatment, presents with severe back pain and found to have new lesions in the thoracic and lumbar spine, received pain medication. After pain medication, requiring oxygen. She is nonambulatory status, on the wheelchair. Has constipation. Denies any abdominal pain. Normal bladder movements. No chest pain. [place] nauseous and vomited today. Appetite is down. No headaches. She has some blurred vision in the left eye, but that is chronic. No sore throat, no cough, no difficulty swallowing, hemodynamically stable. Admission Exam Per Admitting Provider GENERAL: The patient is of moderate build, not in acute distress. VITAL SIGNS: Temperature 36.3, pulse 72, respiratory rate 22, blood pressure 146/76, oxygen 96% on 4 liters. HEENT: Pupils equal, round and reactive to light. Oral mucosa moist. NECK: No JVD, no neck masses. CARDIOVASCULAR: S1 and S2 heard. Regular rate and rhythm. No murmur, no gallop. RESPIRATORY SYSTEM: Normal AP diameter. No accessory muscle use. No wheezing, no crackles. ABDOMEN: Soft, bowel sounds present, nontender, no distention. CENTRAL NERVOUS SYSTEM: Alert, awake, and oriented. No facial droop. Speech is clear. Obeys simple commands. Insight is good. Moves extremities. EXTREMITIES: Left lower extremity is in brace and dressing. Principal Diagnosis Intractable back pain due to pathologic fracture T6 and L4 from metastatic neuroendocrine tumor, ESRD on HD, Hypercalcemia Discharge Exam General:Sitting in bed, not in distress, on room air Chest: Permacath noted. Clear breath sounds bilaterally, no wheezes or crackles CVS: Regular rate and rhythm, normal heart sounds, no murmur thoracic spine tenderness at level of fracture Abdomen: Soft, non tender, not distended, normal bowel sounds Neuro: Awake, alert, oriented, conversing well, non focal Extremities: No edema. LLE on boot Discharge Data Allergies Allergy/AdvReac Type Severity Reaction Status Date / Time Iodinated Contrast Media AdvReac Severe Patient Verified 09/24/21 07:36 has kidney failure omeprazole AdvReac Severe Increased Verified 09/24/21 07:36 her acid reflux Consultations 01/21/22 20:20 ED Decision to Admit Stat 01/22/22 08:00 Consult Nephrology Routine Consult Orthopedic Surgery Routine Consult Pain Management Routine Consult Radiation Oncology Routine 01/23/22 07:15 Consult Vascular Surgery Routine Procedures Performed Operation Date: 01/23/22 11:30 Actual Procedures p Insertion of Temporary Dialysis Catheter, Ultrasound Localization of Right Fe moral Vein, Fluoroscopy for Positioning(Right) - Rigo Strong MD Operation Date: 01/26/22 08:00 Actual Procedures p Insertion of Perm Catheter, Left Internal Juglar Approach, Ultrasound Localization of Left Internal Jugular Vein , Fluoroscopy for Positioning, Removal of Nontunneling Catheter (Left) - Rigo Strong MD Ordered Studies 01/21/22 15:04 CT abd pelvis wo con Stat CT chest without contrast [CT chest diagnostic wo con] Stat 01/22/22 09:11 CT guide rad therapy chest Routine 01/23/22 08:02 EV cvc insrt tunnel wo prt/bindery technician Routine 01/23/22 12:39 US hemodialysis access Routine 01/24/22 08:13 CT thoracic spine wo con Routine 01/26/22 07:12 US EV guide vascular access Routine 01/28/22 12:40 MRI Lumbar Spine [MR lumbar spine wo con] Routine MRI Thoracic [MR thoracic spine wo con] Routine Laboratory Results WBC 4.02 K/ul (4.8-10.8) L 01/28/22 06:13 RBC 3.35 M/uL (3.93-5.22) L 01/28/22 06:13 Hgb 10.4 g/dl (12.0-16.0) L 01/28/22 06:13 Hct 32.9 % (34.1-44.9) L 01/28/22 06:13 MCV 98.2 fL (80.0-100.0) 01/28/22 06:13 MCH 31.0 pg (25.0-34.0) 01/28/22 06:13 MCHC 31.6 g/dL (32.0-36.0) L 01/28/22 06:13 RDW Std Deviation 62.3 fL (36.4-46.3) H 01/28/22 06:13 RDW Coeff of Padmini 17.1 % (11.5-14.5) H 01/28/22 06:13 Plt Count 172 K/uL (130-400) 01/28/22 06:13 MPV 8.7 fL (9.4-12.3) L 01/28/22 06:13 Immature Gran % (Auto) 0.3 % 01/22/22 06:10 Neut % (Auto) 71.5 % 01/22/22 06:10 Lymph % (Auto) 19.1 % 01/22/22 06:10 [place] % (Auto) 7.1 % 01/22/22 06:10 Eos % (Auto) 1.7 % 01/22/22 06:10 Baso % (Auto) 0.3 % 01/22/22 06:10 Neut # (Auto) 4.60 K/uL (1.4-6.5) 01/22/22 06:10 Lymph # (Auto) 1.23 K/uL (1.2-3.4) 01/22/22 06:10 [place] # (Auto) 0.46 K/uL (0.24-0.82) 01/22/22 06:10 Eos # (Auto) 0.11 K/uL (0-0.50) 01/22/22 06:10 Baso # (Auto) 0.02 K/uL (0-0.2) 01/22/22 06:10 Immature Gran # (Auto) 0.02 K/uL (0.00-0.02) 01/22/22 06:10 PT 11.1 Seconds (9.0-12.0) 01/22/22 18:08 INR 1.0 (0.9-1.1) 01/22/22 18:08 Sodium 129 mmol/L (136-145) L 01/29/22 08:17 Potassium 4.3 mmol/L (3.5-5.1) 01/29/22 08:17 Chloride 97 mmol/L (98-107) L 01/29/22 08:17 Carbon Dioxide 25 mmol/L (21-32) 01/29/22 08:17 Anion Gap 7 (3-11) 01/29/22 08:17 BUN 88 mg/dl (6-23) H D 01/29/22 08:17 Creatinine 6.13 mg/dl (0.6-1.2) H* D 01/29/22 08:17 Est Cr Clr Drug Dosing 11.3 ml/min 01/29/22 08:17 Est GFR ( Amer) 8.2 ml/min 01/29/22 08:17 Est GFR (Non-Af Amer) 7.1 ml/min 01/29/22 08:17 BUN/Creatinine Ratio 14.4 (10-20) 01/29/22 08:17 Glucose 100 mg/dl (70-99(Fasting)) H 01/29/22 08:17 POC Glucose 180 mg/dl (70-99) H 01/29/22 11:47 Estimat Average Glucose 94 mg/dl 01/22/22 06:10 Hemoglobin A1c 4.9 % (4.5-5.6) 01/22/22 06:10 Lactate 0.5 mmol/L (0.4-2.0) 01/23/22 08:30 Calcium 11.5 mg/dl (8.5-10.1) H 01/29/22 08:17 Ionized Calcium 1.49 mmol/L (1.12-1.32) H 01/28/22 06:13 Magnesium 3.8 mg/dl (1.7-2.4) H 01/28/22 06:13 Total Bilirubin 0.7 mg/dl (0.2-1.0) 01/21/22 16:16 AST 17 U/L (13-39) 01/21/22 16:16 ALT 12 U/L (7-52) 01/21/22 16:16 Alkaline Phosphatase 98 U/L (34-104) 01/21/22 16:16 Troponin I High Sens 5.0 pg/ml (0-14) 01/21/22 16:16 Total Protein 10.3 gm/dl (6.0-8.3) H 01/21/22 16:16 Albumin 3.9 gm/dl (3.4-5.0) 01/21/22 16:16 Globulin 6.4 gm/dl (2.5-4.0) H 01/21/22 16:16 Albumin/Globulin Ratio 0.6 (0.9-2) L 01/21/22 16:16 Lipase 13 U/L (11-82) 01/21/22 16:16 HCG, Qual Negative (Negative) 01/23/22 08:46 Urine Color Yellow 01/24/22 03:30 Urine Appearance Clear (Clear) 01/24/22 03:30 Urine pH 8.5 (4.5-7.5) H 01/24/22 03:30 Ur Specific [place] 1.014 (1.000-1.030) 01/24/22 03:30 Urine Protein 3+ (Negative) H 01/24/22 03:30 Urine Glucose (UA) Trace (Negative) H 01/24/22 03:30 Urine Ketones Negative (Negative) 01/24/22 03:30 Urine Blood Negative (Negative) 01/24/22 03:30 Urine Nitrite Negative (Negative) 01/24/22 03:30 Urine Bilirubin Negative (Negative) 01/24/22 03:30 Urine Urobilinogen Negative (Negative) 01/24/22 03:30 Ur Leukocyte Esterase Negative (Negative) 01/24/22 03:30 Urine WBC (Auto) 1-5 /hpf (0-5) 01/24/22 03:30 Urine RBC (Auto) 5-10 /hpf (0-4) H 01/24/22 03:30 U Hyaline Cast (Auto) 1-5 /lpf (0-5) 01/24/22 03:30 U Epithel Cells (Auto) >30 /lpf (0-5) H 01/24/22 03:30 Urine Bacteria (Auto) Negative (Negative) 01/24/22 03:30 Stool Occult Bld Scrn Negative (Negative) 01/22/22 16:00 SARS-CoV-2, RNA, NAAT NEGATIVE (NEGATIVE) 01/21/22 15:35 Impressions Abdomen/Pelvis CT 01/21/22 15:04 CT chest diagnostic wo con, CT abd pelvis wo con CLINICAL HISTORY: 56 years-old Female with back pain, n/v. Acute chest and back pain with nausea and vomiting TECHNIQUE: Multiaxial CT images of the chest, abdomen and pelvis were performed without contrast. A dose lowering technique was utilized adhering to the principles of ALARA. COMPARISON: Chest CT 07/27/2017, CT chest, abdomen and pelvis 11/27/2019, PET CT 01/03/2020 and MRI lumbar spine 12/03/2020 (images only without accounting report). FINDINGS: CT CHEST: Unremarkable thyroid. No definitive lymphadenopathy. The heart is mildly enlarged with coronary artery calcifications. Mild distention of the fluid- filled esophagus. No pneumothorax, pleural effusion, overt pulmonary edema, suspicious pulmonary nodule or mass. Subsegmental bibasilar atelectasis. Indeterminate groundglass nodular opacity of the left upper lobe measuring 7 mm on image 84 appears new from the 2019 exam. Unremarkable soft tissues. Degenerative changes of the shoulders and spine. Infiltrative osteolytic lesion involving the T6 vertebral body has increased in size from 04/16/2021 and extends into the bilateral pedicles and facets at T6 and also within the adjacent T5 and T7 vertebral bodies and right posterior elements of T7. Pathologic burst fracture at T6 with 4 mm anterolisthesis T6 on T7. Kyphotic curvature of the thoracic spine centered at this level. There is paravertebral edema with soft tissue extension into the central canal and neuroforamina at T5-T6 and T6-T7 bilaterally. There is suggestion of severe central canal stenosis with bilateral neural foraminal narrowing. CT ABDOMEN/PELVIS: There is no pneumatosis or pneumoperitoneum. The spleen is enlarged, 14.8 cm in length. Unremarkable pancreas and adrenal glands. Cholecystectomy. Biliary ducta l dilation is similar to prior and likely postsurgical. Unremarkable appearance of the unenhanced liver which is suboptimally evaluated without the use of IV contrast. Indeterminate 3 cm intermediate density lesion of the interpolar left kidney with [place] of 23. This previously demonstrated cystic attenuation the prior study. No hydronephrosis. Unremarkable urinary bladder and uterus. No abdominal aortic aneurysm. Subcentimeter inguinal chain lymph nodes measure up to 9 mm on the left which are nonspecific. Fluid-filled slightly distended distal esophagus. There is no small bowel obst ruction. Moderate to extensive fecal retention. Colonic diverticulosis. Normal appendix. Diastases recti with tiny fat filled periumbilical hernia. Subcutaneous edema of the right anterior abdominal wall. Mild generalized body wall edema. Infiltrative osteolytic lesions of the L4 and L5 vertebral bodies are redemonstrated. Pathologic burst fracture of the L4 vertebral body is noted with subacute appearing nondisplaced fracture extending into the left L4 pedicle. 4 mm retropulsion. The soft tissue component of the mass likely extends into the bilateral L4-L5 neural foramen. There is at least moderate to severe central canal stenosis at the L4 level. IMPRESSION: 1. Increased size of the patient's known osteolytic infiltrative lesion involving the T6 vertebral body, now with extension into the posterior elements and adjacent T6 and T7 vertebral bodies. There is a pathologic burst fracture of the T6 vertebral body with associated anterolisthesis, new from 04/16/2021. Soft tissue component of the mass results in associated central canal and neural foraminal narrowing as above. 2. Chronic osteolytic infiltrative lesions at L4 and L5 with pathologic L4 burst fracture extending into the posterior elements is also new from 04/16/2021. Soft tissue nodule of the lesion extends into the central canal and neural foramina with associated stenosis as above. 3. Constipation with moderate to extensive fecal retention. 4. No bowel obstruction or bowel wall thickening. 5. Indeterminate intermediate density 3 cm lesion of the interpolar left kidney favoring a complex cyst could be correlated with a nonemergent follow-up renal ultrasound. 6. Additional findings as above. ACT 112: Negative or not required by law. Electronically signed by: Rajeev Roblero M.D. 01/21/2022 6:[address] 01/21/22 15:04 CT chest diagnostic wo con, CT abd pelvis wo con CLINICAL HISTORY: 56 years-old Female with back pain, n/v. Acute chest and back pain with nausea and vomiting TECHNIQUE: Multiaxial CT images of the chest, abdomen and pelvis were performed without contrast. A dose lowering technique was utilized adhering to the principles of ALARA. COMPARISON: Chest CT 07/27/2017, CT chest, abdomen and pelvis 11/27/2019, PET CT 01/03/2020 and MRI lumbar spine 12/03/2020 (images only without accounting report). FINDINGS: CT CHEST: Unremarkable thyroid. No definitive lymphadenopathy. The heart is mildly enlarged with coronary artery calcifications. Mild distention of the fluid- filled esophagus. No pneumothorax, pleural effusion, overt pulmonary edema, suspicious pulmonary nodule or mass. Subsegmental bibasilar atelectasis. Indeterminate groundglass nodular opacity of the left upper lobe measuring 7 mm on image 84 appears new from the 2020 exam. Unremarkable soft tissues. Degenerative changes of the shoulders and spine. Infiltrative osteolytic lesion involving the T6 vertebral body has increased in size from 04/16/2021 and extends into the bilateral pedicles and facets at T6 and also within the adjacent T5 and T7 vertebral bodies and right posterior elements of T7. Pathologic burst fracture at T6 with 4 mm anterolisthesis T6 on T7. Kyphotic curvature of the thoracic spine centered at this level. There is paravertebral edema with soft tissue extension into the central canal and neuroforamina at T5-T6 and T6-T7 bilaterally. There is suggestion of severe central canal stenosis with bilateral neural foraminal narrowing. CT ABDOMEN/PELVIS: There is no pneumatosis or pneumoperitoneum. The spleen is enlarged, 14.8 cm in length. Unremarkable pancreas and adrenal glands. Cholecystectomy. Biliary ductal dilation is similar to prior and likely postsurgical. Unremarkable appearance of the unenhanced liver which is suboptimally evaluated without the use of IV contrast. Indeterminate 3 cm intermediate density lesion of the interpolar left kidney with [place] of 23. This previously demonstrated cystic attenuation the prior study. No hydronephrosis. Unremarkable urinary bladder and uterus. No abdominal aortic aneurysm. Subcentimeter inguinal chain lymph nodes measure up to 9 mm on the left which are nonspecific. Fluid-filled slightly distended distal esophagus. There is no small bowel obstruction. Moderate to extensive fecal retention. Colonic diverticulosis. Normal appendix. Diastases recti with tiny fat filled periumbilical hernia. Subcutaneous edema of the right anterior abdominal wall. Mild generalized body wall edema. Infiltrative osteolytic lesions of the L4 and L5 vertebral bodies are redemonstrated. Pathologic burst fracture of the L4 vertebral body is noted with subacute appearing nondisplaced fracture extending into the left L4 pedicle. 4 mm retropulsion. The soft tissue component of the mass likely extends into the bilateral L4-L5 neural foramen. There is at least moderate to severe central canal stenosis at the L4 level. IMPRESSION: 1. Increased size of the patient's known osteolytic infiltrative lesion involving the T6 vertebral body, now with extension into the posterior elements and adjacent T6 and T7 vertebral bodies. There is a pathologic burst fracture of the T6 vertebral body with associated anterolisthesis, new from 04/16/2021. Soft tissue component of the mass results in associated central canal and neural foraminal narrowing as above. 2. Chronic osteolytic infiltrative lesions at L4 and L5 with pathologic L4 burst fracture extending into the posterior elements is also new from 04/16/2021. Soft tissue nodule of the lesion extends into the central canal and neural foramina with associated stenosis as above. 3. Constipation with moderate to extensive fecal retention. 4. No bowel obstruction or bowel wall thickening. 5. Indeterminate intermediate density 3 cm lesion of the interpolar left kidney favoring a complex cyst could be correlated with a nonemergent follow-up renal ultrasound. 6. Additional findings as above. ACT 112: Negative or not required by law. Electronically signed by: Rajeev Roblero M.D. 01/21/2022 6:01 PM Chest X-Ray 01/23/22 08:17 XR chest 1V portable CLINICAL HISTORY: Fever TECHNIQUE: Single frontal radiograph of the chest was obtained. Comparison: Comparison is made to chest radiograph 04/25/[address] for radiation therapy 01/22/2022 FINDINGS: No lines and tubes are seen. Calcified aortic knob is seen. Atelectasis is seen in the left lower lung. No evidence of pleural effusion or pneumothorax. Indistinctness of the T6 vertebral body is seen compatible with osteolytic lesion. IMPRESSION: No acute abnormalities and in particular no evidence of pneumonia. ACT 112: Negative or not required by law. Electronically signed by: Rm Flores M.D. 01/23/2022 12:20 PM Hemodialysis Access Duplex US 01/23/22 12:39 US hemodialysis access CLINICAL HISTORY: malfunction of left arm fistula COMPARISON STUDY: Ultrasound hemodialysis access 04/06/2021. FINDINGS: The brachial and cephalic veins are patent and demonstrate normal flow. The proximal radial artery is also patent. No significant stenosis or occlusion. IMPRESSION: Patent left upper extremity fistula. ACT 112: Negative or not required by law. Electronically signed by: Robson Nj M.D. 01/23/2022 8:[address] 01/24/22 08:13 CT SCAN OF THE THORACIC SPINE WITHOUT IV CONTRAST CLINICAL HISTORY: T6 fracture. COMPARISON STUDY: Chest CT dated 01/21/2022. TECHNIQUE: CT scan of the thoracic spine is performed from the lower cervical spine to the upper lumbar spine. Images are reviewed in the axial, sagittal, and coronal planes. IV contrast was not administered for this examination. A dose lowering technique was utilized adhering to the principles of ALARA. The examination is degraded by suboptimal positioning with the patient within the CT gantry. CT DOSE: 993.46 mGy.cm FINDINGS: The skeletal structures are osteopenic. Again seen is a large osteolytic lesion with permeative destruction of the T6 vertebral body. There is unchanged appearance of a burst fracture at this level with associated anterolisthesis and hyperkyphosis. Vertebral body height is otherwise maintained throughout the thoracic spine. The transverse and spinous processes appear intact. The osteolytic lesion of T6 involves the posterior/inferior endplate of T5 and the posterior/superior endplate of T7 with osteolytic destruction. There is permeative destruction of the bilateral pedicles of T6. This also extends into the lamina bilaterally. There is a large soft tissue component of this lesion with paraspinous extension. This lesion causes near complete effacement of the central canal at the T5 and T6 levels. Intrathecal component measures approximately 3 cm in craniocaudal length. There is also near complete effacement of the bilateral neural foramina at C5-C6 and T6-T7. The paravertebral component of this lesion involves the left posterior 7th rib at the costovertebral junction as seen on image #170. No additional osteolytic lesions are clearly seen in the thoracic spine. No additional fracture is identified. Imaged lung parenchyma shows no airspace consolidation or pleural effusion. Scarring/atelectasis is present at the lung bases. The paraspinous soft tissues are normal as visualized. The coronary arteries are densely calcified. IMPRESSION: 1. No significant change from 01/21/2022. 2. Again seen is an osteolytic destructive lesion of the T6 vertebral body with a severe burst type pathologic compression fracture. 3. There is a large paravertebral soft tissue component to the T6 lesion, with associated indication/ erosive change involving T5, T7, and the left posterior 7th rib as above. 4. The large soft tissue component of the lesion invades the central canal and causes severe effacement of the thecal sac at T5 and T6. 5. No additional fracture is identified. ACT 112: Negative or not required by law. Dictated: 01/24/2022 4:56 PM Transcribed: 01/24/2022 7:43 PM Mirela [id number] [email or web address] Electronically signed by: Russell Fernandez M.D. 01/24/2022 8:02 PM Lumbar Spine MRI 01/28/22 12:40 MRI OF THE LUMBAR SPINE WITHOUT CONTRAST CLINICAL HISTORY: back pain, pathologic fracture d/t mets COMPARISON STUDY: Lumbar spine MRI July 28, 2017. PET/CT April 16, 2021. CT of the abdomen and pelvis January 21, 2022. TECHNIQUE: Utilizing a 1.5 Yelitza magnet and dedicated coil, multiplanar, multiecho imaging of the lumbar spine was performed without IV contrast. FINDINGS: Please note that the thoracic spine MRI will be reported separately. For purposes of numbering on this exam, the L5-S1 disc space is assigned to axial image 33 of 40. The conus terminates at the L1 level. Splenomegaly is better depicted on abdominal CT of January 21, 2022. There is decreased signal intensity within the liver and spleen on this exam. This may reflect secondary hemochromatosis due to iron overload. Increased T1 signal within the lower lumbar spine and sacrum is likely related to radiation therapy. A few suspected renal cysts are present. There is diminished T1 and T2 marrow signal within the lower thoracic and upper lumbar spine. A 2.1 cm lesion along the superior endplate of L5 represents a skeletal lesion which was shown on prior MRI. This slight loss of height of the superior endplate which is unchanged. L4 pathologic burst fracture is noted with 50% loss of vertebral body height. This is similar to CT of January 21, 2022. Loss of height is new since PET/CT of April 16, 2021. There is 7 mm of retropulsion with suspected small epidural component. These findings result in severe narrowing of the central canal at the L4 level. Patent AP diameter canal is 4 mm. There is severe narrowing of both lateral recesses at this level. There is tortuosity/redundancy of the nerve roots due to severe central canal stenosis at this level. Otherwise, the central canal is patent within the lumbar spine. There is moderate to severe narrowing of the bilateral L3-L4 and L4-L5 neural foramen. IMPRESSION: 1. Multifocal marrow replacement consistent with skeletal metastatic disease. 2. Pathologic L4 burst fracture with 7 mm of retropulsion and suspected epidural extension. Findings result in severe narrowing of the central canal and both lateral recesses at this level. Findings could be correlated with clinical evidence for cauda equina syndrome. Otherwise, patent central canal within the lumbar spine. 3. Moderate to severe bilateral neural foraminal narrowing at the L3-L4 and L4- L5 levels. ACT 112: Negative or not required by law. Electronically signed by: Marvin Morgan M.D. 01/29/2022 9:11 AM Thoracic Spine MRI 01/28/22 12:40 MR thoracic spine wo con CLINICAL HISTORY: back pain, pathologic fracture d/t mets TECHNIQUE: Multiplanar sequences through the thoracic spine were obtained, without intravenous contrast. Comparison: Comparison is made to CT thoracic spine 01/24/2022 FINDINGS: There is near complete loss of height of T6, new from prior exam. Retropulsion into the spinal canal resulting in moderate to severe canal stenosis, AP diameter 7 mm. There is likely severe neuroforaminal stenosis bilaterally at this level. Mild posterior disc bulges are seen most prominently at T8-T9 and T9-T10, without significant canal or neuroforaminal stenosis. Tumor involvement in the adjacent ribs and vertebral bodies is partially visualized, comparable to prior exam. The spinal ligaments are intact, without evidence of disruption or abnormal signal intensity. The spinal cord is normal in signal intensity and there is no evidence of cord contusion. There is no evidence of an extradural, intradural, extramedullary or intramedullary lesion. Visualized soft tissues are normal. IMPRESSION: Near complete loss of height of T6 with retropulsion, new from prior exam, compatible with previously noted pathologic burst fracture. There is moderate to severe canal stenosis, AP diameter 7 mm, without evidence of cord edema. There is likely severe bilateral neuroforaminal stenosis. ACT 112: Negative or not required by law. Electronically signed by: Rm Flores M.D. 01/29/2022 10:49 AM Hospital Course (1) Intractable back pain: (2) Pathologic fracture of thoracic vertebrae: (3) Burst fracture of thoracic vertebra: (4) Neuroendocrine tumor: (5) ESRD (end stage renal disease): (6) Insulin dependent diabetes mellitus: Plan (1) Intractable back pain: (2) Burst fracture of thoracic vertebra: (3) Pathologic fracture of thoracic vertebrae: (4) Neuroendocrine tumor: (5) Insulin dependent diabetes mellitus: (6) ESRD (end stage renal disease): A/P 56-year-old female with metastatic neuroendocrine tumor presented to ED with severe back pain due to pathologic burst fracture of thoracic vertebra CT T spine 01/24 1. No significant change from 01/21/2022. 2. Again seen is an osteolytic destructive lesion of the T6 vertebral body with a severe burst type pathologic compression fracture. 3. There is a large paravertebral soft tissue component to the T6 lesion, with associated indication/ erosive change involving T5, T7, and the left posterior 7th rib as above. 4. The large soft tissue component of the lesion invades the central canal and causes severe effacement of the thecal sac at T5 and T6. 5. No additional fracture is identified. MRI T spine 01/29 Near complete loss of height of T6 with retropulsion, new from prior exam, compatible with previously noted pathologic burst fracture. There is moderate to severe canal stenosis, AP diameter 7 mm, without evidence of cord edema. There is likely severe bilateral neuroforaminal stenosis. MRI L spine 01/29 1. Multifocal marrow replacement consistent with skeletal metastatic disease. 2. Pathologic L4 burst fracture with 7 mm of retropulsion and suspected epidural extension. Findings result in severe narrowing of the central canal and both lateral recesses at this level. Findings could be correlated with clinical evidence for cauda equina syndrome. Otherwise, patent central canal within the lumbar spine. 3. Moderate to severe bilateral neural foraminal narrowing at the L3-L4 and L4- L5 levels. Intractable back pain due to pathologic burst fracture T6 and L4 from metastatic neuroendocrine tumor - CT and MRI reviewed as above. Spoke personally with Dr Abernathy from radiation oncology and Dr Dean and Dr Castillo from orthopedic spine surgery ([facility] and [facility] respectively) today prior to discharge. Patient is improving with palliative radiation treatment and her pain is controlled on po meds and her mobility/functionality has improved. She still has 5 more days of radiation treatment and should continue to improve and stabilize. She does not have any neurological signs or symptoms of cord compression or cauda equina syndrome. As such, she doesn't need transfer to tertiary center at this point per all above providers. Recommended OP follow up with orthopedic surgeon with repeat MRI in few weeks per Dianne. Recommended that if neurological symptoms, she will need emergent evaluation. Recommended not to lift anything heavy. No indication for brace or surgery per ortho. She verbalized understanding of the plan. Our nurse coordinator will arrange for the appointments. - Seen by radiation oncology- continue radiation treatment D5/10. okay to dc per radiation oncology. She will continue receiving RT as OP. - Seen by Dr Dean- reviewed CT and MRIs with him and discussed the plan - seen by pain management- continue methadone, po dilaudid, calcitonin spray, lidocaine patch. Discussed with pain management prior to discharge who recommended continuing calcitonin spray for a month. ESRD on HD TTS- fistula malfunctioned. s/p permacath insertion. Dialysis per nephro. Next on Wednesday DM-2- continue home insulin Hypothyroidism. Continue Synthroid. Renal cyst. Needs followup as OP Hyponatremia- stable at 131. monitor Hypercalcemia- likely from her bone mets. Discussed with nephro- no indication for bisphosphonate currently. Continue calcitonin spray, dialysis. Follow up as OP She is anxious to go home. Her pain is controlled with just oral pain medication. She has enough pain meds at home. PDMP reviewed. She will follow up with her pain management doctors for further management of her pain. Home therapy set up per . Home Health Attestation I certify that this patient is under my care and that I, or a physicians records management assistant working with me, had a face to-face encounter that meets the home health [id number] encounter requirements with this patient. The encounter with the patient was in whole, or in part, for the following medical condition, which is the primary reason for home health care (list medical condition): I certify that, based on my findings, the following services are medically necessary home health services: My clinical findings support the need for the above services because: Further, I certify that my clinical findings support that this patient is homebound (i.e. absences from home require considerable and taxing effort and are for medical reasons or sikhism services or infrequently or of short duration when for other reasons) because: Certification for Home Health Services: Based on the above findings, I certify that this patient is confined to the home and needs intermittent half-way care, physical therapy and/or speech therapy or continues to need occupational therapy. The patient is under my care, and I have initiated the establishment of the plan of care. This patient will be followed by a physician who will periodically review the plan of care. Total Time Total Time Spent Total Time Spent (In Minutes): 50 Discharge Plan Discharge Items Patient Disposition: Home - Self-Care Reason For Visit: BACK PAIN Discharge Diagnosis: intractable back pain due to pathologic fracture T6 and L4 due to metastatic n euroendocrine tumor, ESRD on HD Activity: Resume your previous activity Non-emergency contact: Primary Care Provider Call non-emergency contact if: you have any medication questions, your symptoms worsen, your pain is not controlled and your pain is concerning for you Follow-up/Referrals: Pilgram,Edy A., MD [Primary Care Provider] - (Date & Time 02/03/2022 11:20 AM Provider Edy Eddy MD Department Family Medicine [facility] ) Jessie Banuelos MD [Outside Practitioners] - (Date & Time 02/02/2022 3:00 PM Provider Jessie Banuelos MD Department Palliative Medicine [facility] ) Diet: Dialysis Renal Addtl Attending Provider Instructions: Please continue the radiation treatment I have not changed your pain medications. Call your palliative/pain management doctors if need refill on your pain meds or your pain is not controlled You can get over the counter 4% lidocaine patch for your back pain You can use the calcitonin spray daily into one nostril only using alternate nostril each day Follow up with your oncologist Continue your dialysis as scheduled Your calcium level is high which is likely from the bone metastasis. The nasal spray will help it keep down and so will the dialysis. Follow up with the family doctor/ kidney doctors for further managment. Follow up with the [facility] ortho spine surgeon with repeat MRI in the next few weeks. This is as per Dr Dean's recommendation. Your family doctor will make the referral. Please do not lift any heavy weight. If you have new neurological symptoms like weakness, numbness, bowel bladder incontinence or perineal sensation loss, please come back to the emergency immediately. Pending Studies at Discharge: No Stand-Alone Forms: My [facility] [employer], Smoking Cessation Medications and DC Order Prescriptions: New famotidine 20 mg tablet 20 mg PO BID Qty: 20 0RF ondansetron 4 mg tablet,disintegrating 4 mg PO Q6H PRN (Reason: nausea and vomiting) Qty: 14 0RF calcitonin (salmon) 200 unit/actuation [place],Non-Aerosol 1 spray NA DAILY Qty: 30 0RF Continued docusate sodium [Colace] 100 mg capsule 100 mg PO DAILY PRN (Reason: Constipation) levothyroxine 125 mcg tablet 125 mcg PO DAILYBB insulin aspart U-100 [Novolog U-100 Insulin aspart] 100 unit/mL Solution 1 sliding scale dose SUBCUT USEASDIRECTD Rx Instructions: sliding scale, tid with meals Humulin N NPH Insulin KwikPen 100 unit/mL (3 mL) insulin pen 30 unit SUBCUT BID sevelamer carbonate [Renvela] 800 mg tablet 1,600 mg PO TIDM Lactinex 1 million cell tablet,chewable 1 tab PO BID Qty: 60 0RF Ira-Umer 0.8 mg tablet 1 tab PO DAILY hydromorphone 8 mg tablet 8 mg PO DAILY Discharge Orders: Discharge Order (Routine); Ordered 01/29/22 Ordered By: Sanford Carlisle Admission Data Admit Date/Time: 01/21/22 21:42 Attending Provider: Sanford Carlisle Admit Provider: Lucio Orourke Primary Care Provider: Edy Eddy Other Providers: Scar Carter ; Lucio Orourke ; Sharon Aleman ; Douglas Hu ; Angelika Lemos ; Kalen Dozier ; Judd Fink ; Sherine Villa ; Seymour Dean ; Hawk Cortés ; Anastasiya Odell ; Rigo Strong Other Interventions: Discharge Summary Assessment (RN) Last Done: 01/29/22 15:27
== END 2022-01-29 16:05 | disposition home health service (06) | DRG 542 ==
LOC: ED 14:01 → SUATTDRO 21:42 → 2W 21:42

== ENCOUNTER 2022-02-23 16:58 | Inpatient (IN) ==
--- NOTE | 2022-02-23 17:35 | ED Triage Note ---
Date of Service February 23, 2022 History of Present Illness This patient was briefly evaluated while in triage. An abbreviated physical exam was performed. This patient is a 56-year-old Female with severe back pain and cannot move here legs. She cannot stand up. This she notes is worse than previous. No falls or trauma. The pain is still present in the back. She finished radiation three weeks ago. She had hydromorphone at 4pm. No relief with this medication. No fevers recently. Physical Exam GENERAL: 56 year old female. In no acute distress. SKIN: No lesions or rashes. HEART: Regular rate and rhythm. LUNGS: Clear to auscultation. NEURO: Alert and oriented. No deficits. MUSCULOSKELETAL: No deformities to inspection of the extremities. PSYCH: Patient is pleasant and answers all questions appropriately. Initial orders for labs and / or imaging were placed and patient was placed in the waiting area until a bed is available. Please see further documentation for the full ED course.
[2022-02-23 21:15] LABS: Basophils # (auto) 0.02 K/uL (0-0.2); Basophils % (auto) 0.3 %; Eosinophils # (auto) 0.02 K/uL (0-0.50); Eosinophils % (auto) 0.3 %; Hematocrit (blood only) 28.7 % (34.1-44.9); Hemoglobin 8.7 g/dl (12.0-16.0); Immature Granulocytes # (auto) 0.04 K/uL (0.00-0.02); Immature Granulocytes % (auto) 0.6 %; Lymphocytes # (auto) 0.31 K/uL (1.2-3.4); Lymphocytes % (auto) 4.7 %; Mean Corpuscular Hemoglobin 31.8 pg (25.0-34.0); Mean Corpuscular Hgb Conc 30.3 g/dL (32.0-36.0); Mean Corpuscular Volume 104.7 fL (80.0-100.0); Mean Platelet Volume 9.4 fL (9.4-12.3); Monocytes # (auto) 0.34 K/uL (0.24-0.82); Monocytes % (auto) 5.1 %; Neutrophils # (auto) 5.92 K/uL (1.4-6.5); Platelet Count 210 K/uL (130-400); RDW Coefficient of Variation 17.1 % (11.5-14.5); RDW Standard Deviation 66.2 fL (36.4-46.3); Red Blood Count 2.74 M/uL (3.93-5.22); White Blood Count 6.65 K/ul (4.8-10.8)
[2022-02-23] MEDS ORDERED: ONDANSETRON INJ 2 MG/ML 2 ML VIAL IV STA (21:47)
[2022-02-23] MEDS ORDERED: HYDROmorphone INJ 0.5 MG/0.5 ML SYR IV STA (21:47)
[2022-02-23 21:51] LABS: Alanine Aminotransferase 17 U/L (7-52); Albumin Globulin Ratio 0.5 (0.9-2); Albumin Level 2.7 gm/dl (3.4-5.0); Alkaline Phosphatase 95 U/L (34-104); Anion Gap 9 (3-11); BUN Creatinine Ratio 9.9 (10-20); Bilirubin,Total 0.5 mg/dl (0.2-1.0); Blood Urea Nitrogen 47 mg/dl (6-23); Calcium 9.4 mg/dl (8.5-10.1); Carbon Dioxide 26 mmol/L (21-32); Chloride 98 mmol/L (98-107); Est GFR (African American) 11.1 ml/min; Est GFR (Non-African American) 9.6 ml/min; Globulin 5.7 gm/dl (2.5-4.0); Glucose 87 mg/dl (70-99(Fasting)); Sodium 133 mmol/L (136-145); Total Protein 8.4 gm/dl (6.0-8.3)
[2022-02-23] MEDS ORDERED: LORazepam 2 MG/2 ML SYR IV STA ×2 (22:37→23:28)
--- NOTE | 2022-02-23 23:08 | Emergency Department Note ---
History of Present Illness General Chief complaint: Back Injury/Pain Stated complaint: BACK PAIN, RADIATION TREATMENT Time Seen by Provider: 02/23/22 21:42 History of Present Illness Maximum Pain Intensity: 8 This 56-year-old with past medical history significant for type 2 diabetes, end-stage renal disease on hemodialysis, diabetic polyneuropathy, hyperlipidemia, history of hypothyroidism, hypertension, history of osteomyelitis of the left foot, status post treatment; follows with [facility] [place], complete antibiotic course, anemia of chronic kidney disease, history of metastatic neuroendocrine cancer, deemed to be not a candidate for chemotherapy, status post radiation treatment, presents with severe back pain Location: Mid low back Quality: Severe Severity: Severe Duration: Past few days Timing: Started few days ago Context: Pain got worse and patient returned Modifying factors: better with rest; worse with activity Patient gets dialysis Wednesday. Last radiation treatment was 3 weeks ago. Patient states her back pain is gotten much worse than Dilaudid is not helping. She states she can no longer walk and her legs feel weak. Patient denies new trauma to the back, fever, chills, IV drug use. Home Medications Medication Instructions Recorded Confirmed Type insulin aspart U-100 100 unit/mL 1 sliding scale dose subcut 03/15/21 02/24/22 History subcutaneous solution (Novolog USEASDIRECTD U-100 Insulin aspart) levothyroxine 125 mcg tablet 125 mcg PO DAILYBB 03/15/21 02/24/22 History docusate sodium 100 mg capsule 100 mg PO BID PRN Constipation 06/11/21 02/24/22 History (Colace) sevelamer carbonate 800 mg tablet 1,600 mg PO TIDM 07/30/21 02/24/22 History (Renvela) vitamin B complex-vitamin C-folic 1 tab PO QAM 09/11/21 02/24/22 History acid 0.8 mg tablet (Ira-Umer) hydromorphone 8 mg tablet 8 mg PO Q3H PRN Pain 02/02/22 02/24/22 History calcitonin (salmon) 200 1 spray NA QAM 02/19/22 02/24/22 History unit/actuation nasal spray insulin glargine 100 unit/mL (3 32 unit subcut QAM 02/19/22 02/24/22 History mL) subcutaneous pen (Basaglar KwikPen U-100 Insulin) methadone 10 mg tablet 10 mg PO TID 02/19/22 02/24/22 History Lactobacillus acidoph-L.bulgaricus 1 tab PO AMPM 02/24/22 02/24/22 History 1 million cell chewable tablet lactulose 10 gram/15 mL oral 15 ml PO BID PRN Constipation 02/24/22 02/24/22 History solution sucroferric oxyhydroxide 500 mg 500 mg PO QID 02/24/22 02/24/22 History chewable tablet (Velphoro) Allergies Allergy/AdvReac Type Severity Reaction Status Date / Time Iodinated Contrast Media AdvReac Severe Patient Verified 02/24/22 02:16 has kidney failure omeprazole AdvReac Severe Increased Verified 02/24/22 02:16 her acid reflux Past Med/Surg History Medical History Acid reflux Anemia Chronic narcotic dependence Diabetes Diabetic retinopathy ESRD (end stage renal disease) On dialysis esdras @ [facility] H/O vocal cord paralysis Right side Hypertension MRSA bacteremia 2017; unclear if vertebral or R diabetic foot wound source 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---only had radiation treatments Osteomyelitis of left foot chronic 2020 and 2021 Radicular pain of thoracic region Retinal hemorrhage, right eye Sepsis Thyroid cancer had sx Thyroid nodule Wound abscess left foot diabetic ulcer Surgical History Amputation of right great toe AVF (arteriovenous fistula) endovascular L; created 09/2020 H/O thyroidectomy Partial thyroidectomy History of cholecystectomy History of esophagogastroduodenoscopy (EGD) History of surgery Surgery to removed benign tumor from right vocal cord; History of surgery (~01/26/22) permcath placed--pt states her AV fistula was not working properly so p ermcath placed at that time by Dr. Strong @ [facility]--per pt on 02/19/22 she states her AV fistula is now working properly History of surgical procedure on eye proper using laser History of tooth extraction partial upper denture Hx of cataract surgery Bilateral Hx of tonsillectomy Previous section x2 Family History Mother , 70yo Diabetes Valvular heart disease Father , 74yo Diabetes Pneumonia Brother No problems noted. Brother No problems noted. Sister Kidney disease Dialysis patient Daughter No problems noted. Daughter Diabetes Other No family history of adverse response to anesthesia Social History Smoking Status: Never smoker Second Hand Exposure: No; Do You Dip or Chew Tobacco: No; Tobacco Cessation Education Requested by Patient: No Hx Alcohol Use: No Hx Substance Use: No Preferred Language: Albanian Communication Ability: Impaired Visual Impairment: No Limitations Hearing Ability: Normal Delivery Motorcycle Driver Required: No Beliefs That Will Affect Care: None marital status: Current Living Situation: Spouse Current Living Situation Comment: Home w/ current occupational status: disabled How many Children do You have: 2 Other Information That Helps Us Care for You: No Feels Safe at Home: Yes Safety Concerns: Feels Safe At This Time caffeine: No during the past year weight has: remained stable Assistive Devices: Bedside Commode, Walker and Wheelchair Review of Systems A total of 10 systems reviewed and were otherwise negative Physical Exam Vital Signs Vital Signs - 24 hr 02/23/22 17:32 02/24/22 00:34 02/24/22 02:00 Temperature 37.4 C Temperature Source Oral Pulse Rate 91 H Pulse Rate [Apical] 116 H 110 H Pulse Rhythm [Apical] Regular Regular Respiratory Rate 18 16 17 Respiratory Depth Normal Respiratory Pattern Regular Blood Pressure 139/66 Blood Pressure [Right Arm] 161/89 H 164/87 H Blood Pressure Mean 90 Blood Pressure Mean [Right Arm] 113 112 Blood Pressure Position [Right Arm] Semi-fowlers Pulse Oximetry 97 95 99 Oxygen Delivery Method Room Air Nasal Cannula Oxygen Flow Rate 1 Sepsis Recent Fever Within 48 Hours No Sepsis New/Unexplained Change in Mental Status No Sepsis Action Taken by Nursing No Action Required VITALS: Vitals are noted on the nurse's note and reviewed by myself. Vital signs stable. GENERAL: Pleasant female who appears in pain, in no acute distress, nondiaphore tic, well-developed well-nourished. SKIN: The skin was without rashes, erythema, edema, or bruising. There is no tenting of the skin. Capillary reflex less than 2 seconds. HEAD: Normocephalic atraumatic. EARS: External auditory canals clear, EYES: Pupils equal round and reactive to light and accommodation. Conjunctivae without injection, sclerae without icterus. Extraocular movements intact. NOSE: Patent, turbinates without inflammation or discharge. MOUTH: Mucous membranes moist. Pharynx without erythema or exudate. Uvula midline. Airway patent. Tongue does not deviate. NECK: Supple without nuchal rigidity. No lymphadenopathy. No thyromegaly. Cervical spine is nontender. No JVD. HEART: Regular rate and rhythm LUNGS: Clear to auscultation bilaterally without wheezes, rales or rhonchi. No retractions or accessory muscle use. ABDOMEN: Positive bowel sounds x 4. Normal tympanic percussion. Soft, nontender, without masses or organomegaly. Miles sign negative. No guarding or rebound tenderness. No CVA tenderness MUSCULOSKELETAL: No muscle atrophy noted. Mid thoracic and lumbar tenderness. Difficulty with movement of the legs but patient can move her feet but cannot lift her legs. NEURO: Patient was alert and oriented to person place and time. Normal sensation to light and sharp touch. No focal neurological deficits. Course Administered Medications Calcitonin [place] (Calcitonin [place] Na 200 Iu/Ac 3.7 Ml Btl) 1 sprays NA QAM [facility] Stop: 03/26/22 08:59 Last Admin: 02/24/22 09:52 Dose: 1 sprays Documented By: YOUSUF Hydromorphone HCl (Hydromorphone Inj 1 Mg/Ml Syringe) 1 mg IV Q4H PRN PRN Reason: Pain Stop: 03/10/22 06:13 Last Admin: 02/24/22 15:47 Dose: 1 mg Documented By: Admin: 02/24/22 06:32 Dose: 1 mg Documented By: MOE Insulin Aspart (Insulin Aspart Per Unit) 0 units SC ACHS [facility] Stop: 03/26/22 07:29 Last Admin: 02/24/22 15:48 Dose: Not Given Documented By: Admin: 02/24/22 09:20 Dose: Not Given Documented By: YOUSUF Insulin Glargine (Lantus Per Unit Charge) [facility] [place] Stop: 03/26/22 08:59 Last Admin: 02/24/22 10:06 Dose: 14 units Documented By: YOUSUF Co-signed By: MARTY Lactobacillus Acidophilus (Advanced Probiotic 1250 Mg Capsule) 2 cap PO BID [facility] Stop: 03/26/22 08:59 Last Admin: 02/24/22 09:52 Dose: 2 cap Documented By: YOUSUF Levothyroxine Sodium (Levothyroxine Sodium 125 Mcg Tablet) 125 mcg PO DAILYBB [facility] Stop: 03/26/22 06:29 Last Admin: 02/24/22 09:51 Dose: 125 mcg Documented By: YOUSUF Methadone HCl (Methadone Hcl 10 Mg Tab) 10 mg PO TID [facility] Stop: 03/10/22 08:59 Last Admin: 02/24/22 15:05 Dose: 10 mg Documented By: Admin: 02/24/22 10:12 Dose: Not Given Documented By: YOUSUF Sevelamer HCl (Sevelamer Hcl 800 Mg Tablet) 1,600 mg PO TIDM [facility] Stop: 03/26/22 07:59 Last Admin: 02/24/22 15:05 Dose: 1,600 mg Documented By: Admin: 02/24/22 09:51 Dose: 1,600 mg Documented By: YOUSUF Vitamin B Complex (Vitamin B Complex Tab) 1 tab PO QAM [facility] Stop: 03/26/22 08:59 Last Admin: 02/24/22 09:52 Dose: 1 tab Documented By: YOUSUF Discontinued Medications Epoetin Lion (Epoetin Lion 10,000 Units/Ml Vial) 10,000 units IV ONE ONE Stop: 02/24/22 09:50 Last Admin: 02/24/22 11:28 Dose: 10,000 units Documented By: JENNIFFER Heparin Sodium (Porcine) (Heparin Sod 5,000 Unit/0.5 Ml Vial) 5,000 units SQ Q8 [facility] Stop: 03/26/22 06:13 Last Admin: 02/24/22 10:15 Dose: Not Given Documented By: YOUSUF Hydromorphone HCl (Hydromorphone Inj 0.5 Mg/0.5 Ml Syr) 0.5 mg IV NOW STA Stop: 02/23/22 21:48 Last Admin: 02/23/22 22:22 Dose: 0.5 mg Documented By: ARTI Hydromorphone HCl (Hydromorphone Inj 1 Mg/Ml Syringe) 1 mg IV NOW STA Stop: 02/23/22 23:57 Last Admin: 02/24/22 00:06 Dose: 1 mg Documented By: ROSA MARIA Hydromorphone HCl (Hydromorphone Inj 1 Mg/Ml Syringe) Confirm Administered Dose 1 mg .ROUTE .STK-MED ONE Stop: 02/23/22 23:58 Last Admin: 02/24/22 00:06 Dose: Not Given Documented By: ROSA MARIA Sodium Chloride (Nss 1000ml) 1,000 mls @ 75 mls/hr IV .[id number] [facility] Stop: 02/24/22 19:33 Last Admin: 02/24/22 06:30 Dose: 75 mls/hr Documented By: MOE Lorazepam (Lorazepam 2 Mg/1 Ml Vial) 1 mg IV NOW STA; Protocol Stop: 02/23/22 22:38 Last Admin: 02/23/22 22:57 Dose: 1 mg Documented By: ARTI Lorazepam (Lorazepam 2 Mg/1 Ml Vial) 1 mg IV NOW STA; Protocol Stop: 02/23/22 23:29 Last Admin: 02/23/22 23:35 Dose: 1 mg Documented By: ROSA MARIA Ondansetron HCl (Ondansetron Inj 2 Mg/Ml 2 Ml Vial) 4 mg IV NOW STA Stop: 02/23/22 21:48 Last Admin: 02/23/22 22:21 Dose: 4 mg Documented By: ARTI Medical Decision Making Medical Records Attestation: I reviewed the patient's medical records. Home Medications Current Medication List: was personally reviewed by me Laboratory Data Attestation: I reviewed the patient's lab results. Result diagrams: 02/24/22 08:32 02/24/22 08:32 Lab Results 02/23/22 02/23/22 02/23/22 Range/Units 19:50 19:50 19:50 WBC 6.65 (4.8-10.8) K/ul RBC 2.74 L (3.93-5.22) M/uL Hgb 8.7 L (12.0-16.0) g/dl Hct 28.7 L (34.1-44.9) % MCV 104.7 H (80.0-100.0) fL MCH 31.8 (25.0-34.0) pg MCHC 30.3 L (32.0-36.0) g/dL RDW Std Deviation 66.2 H (36.4-46.3) fL RDW Coeff of Padmini 17.1 H (11.5-14.5) % Plt Count 210 (130-400) K/uL MPV 9.4 (9.4-12.3) fL Immature Gran % (Auto) 0.6 % Neut % (Auto) 89.0 % Lymph % (Auto) 4.7 % [place] % (Auto) 5.1 % Eos % (Auto) 0.3 % Baso % (Auto) 0.3 % Neut # (Auto) 5.92 (1.4-6.5) K/uL Lymph # (Auto) 0.31 L (1.2-3.4) K/uL [place] # (Auto) 0.34 (0.24-0.82) K/uL Eos # (Auto) 0.02 (0-0.50) K/uL Baso # (Auto) 0.02 (0-0.2) K/uL Immature Gran # (Auto) 0.04 H (0.00-0.02) K/uL ESR 71 H (0-30) mm/hr Sodium 133 L (136-145) mmol/L Potassium TNP Chloride 98 (98-107) mmol/L Carbon Dioxide 26 (21-32) mmol/L Anion Gap 9 (3-11) BUN 47 H (6-23) mg/dl Creatinine 4.77 H* (0.6-1.2) mg/dl Est Cr Clr Drug Dosing Not Reportable Est GFR ( Amer) 11.1 ml/min Est GFR (Non-Af Amer) 9.6 ml/min BUN/Creatinine Ratio 9.9 L (10-20) Glucose 87 (70-99(Fasting)) mg/dl Calcium 9.4 (8.5-10.1) mg/dl Total Bilirubin 0.5 (0.2-1.0) mg/dl AST TNP ALT 17 (7-52) U/L Alkaline Phosphatase 95 (34-104) U/L C-Reactive Protein (0-0.5) mg/dl Total Protein 8.4 H (6.0-8.3) gm/dl Albumin 2.7 L (3.4-5.0) gm/dl Globulin 5.7 H (2.5-4.0) gm/dl Albumin/Globulin Ratio 0.5 L (0.9-2) SARS-CoV-2, RNA, NAAT (NEGATIVE) 02/23/22 02/23/22 Range/Units 22:25 22:59 WBC (4.8-10.8) K/ul RBC (3.93-5.22) M/uL Hgb (12.0-16.0) g/dl Hct (34.1-44.9) % MCV (80.0-100.0) fL MCH (25.0-34.0) pg MCHC (32.0-36.0) g/dL RDW Std Deviation (36.4-46.3) fL RDW Coeff of Padmini (11.5-14.5) % Plt Count (130-400) K/uL MPV (9.4-12.3) fL Immature Gran % (Auto) % Neut % (Auto) % Lymph % (Auto) % [place] % (Auto) % Eos % (Auto) % Baso % (Auto) % Neut # (Auto) (1.4-6.5) K/uL Lymph # (Auto) (1.2-3.4) K/uL [place] # (Auto) (0.24-0.82) K/uL Eos # (Auto) (0-0.50) K/uL Baso # (Auto) (0-0.2) K/uL Immature Gran # (Auto) (0.00-0.02) K/uL ESR (0-30) mm/hr Sodium (136-145) mmol/L Potassium 3.8 Chloride (98-107) mmol/L Carbon Dioxide (21-32) mmol/L Anion Gap (3-11) BUN (6-23) mg/dl Creatinine (0.6-1.2) mg/dl Est Cr Clr Drug Dosing Est GFR ( Amer) ml/min Est GFR (Non-Af Amer) ml/min BUN/Creatinine Ratio (10-20) Glucose (70-99(Fasting)) mg/dl Calcium (8.5-10.1) mg/dl Total Bilirubin (0.2-1.0) mg/dl AST 22 ALT (7-52) U/L Alkaline Phosphatase (34-104) U/L C-Reactive Protein 23.55 H (0-0.5) mg/dl Total Protein (6.0-8.3) gm/dl Albumin (3.4-5.0) gm/dl Globulin (2.5-4.0) gm/dl Albumin/Globulin Ratio (0.9-2) SARS-CoV-2, RNA, NAAT NEGATIVE (NEGATIVE) Imaging Data Attestation: I personally reviewed and interpreted this imaging study as follows: Radiologist's Impression: Lumbar Spine MRI 02/23/22 21:47 MR lumbar spine wo con CLINICAL HISTORY: cant walk, known CA TECHNIQUE: Multiplanar sequences through the lumbar spine were obtained, without intravenous contrast. Comparison: Comparison is made to MRI lumbar spine 01/28/2022 FINDINGS: Exam is limited by patient motion. Redemonstration of metastatic disease in L3, L4, and L5 with pathologic L4 fracture with retropulsion and possible epidural extension. The spinal canal is significantly narrowed with AP diameter of 5 mm. This is similar in appearance on prior exam within limits of motion degraded exam. Redemonstration of marrow signal abnormality in the upper lumbar spine which may represent iron overload, with correspondingly decreased signal in the liver and spleen. T1 signal in the lower lumbar spine may represent radiation changes. IMPRESSION: 1. Overall similar appearance of pathologic burst fracture of L4 with retropulsion. Evaluation is limited by patient motion however there is likely severe canal and neuroforaminal stenosis at this level. No definite cord edema is seen. 2. Additional findings as above. ACT 112: Negative or not required by law. Electronically signed by: Rm Flores M.D. 02/24/2022 8:45 AM Thoracic Spine MRI 02/23/22 21:47 MR thoracic spine wo con HISTORY: 56 years-old Female cant walk, known CA acute mid back pain COMPARISON: MRI thoracic spine 01/28/2022, CT thoracic spine 01/24/2022. TECHNIQUE: Multiplanar multisequence MRI of the thoracic spine was obtained without the use of IV contrast. FINDINGS: Motion degraded exam. Heterogeneous signal within the lumbar spine may represent skeletal metastasis versus artifact. Osteolytic destructive lesion of the T6 ve rtebral body with pathologic burst fracture is redemonstrated. Retropulsion/mass extension posteriorly measures up to approximately 8 mm narrowing the AP dimension of the thecal sac to approximately 6 mm. Large paravertebral soft tissue component associated with the T6 lesion is again noted with erosive changes involving the T5, T7 left posterior seventh rib. Severe central canal stenosis at T5-T6 with at least moderate bilateral neural foraminal narrowing. The degree of central canal stenosis has likely slightly progressed. Normal signal of the thoracic spinal cord. The conus medullaris terminates at T12-L1. IMPRESSION: 1. Markedly motion degraded exam. 2. Osteolytic T6 vertebral body lesion with pathologic burst fracture re demonstrated resulting in severe central canal stenosis with moderate bilateral neural foraminal narrowing at T5-T6. The degree of central canal stenosis appears similar to slightly progressed from 01/28/2022. 3. Large paravertebral soft tissue component associated with the T6 lesion is redemonstrated which involves the T5 and T7 vertebral bodies and left posterior seventh rib. ACT 112: Negative or not required by law. The above report was generated using voice recognition software. It may contain grammatical, syntax or spelling errors. Electronically signed by: Rajeev Roblero M.D. 02/24/2022 10:24 AM [facility] Narrative Prior records/ancillary studies reviewed. Triage Nursing notes reviewed. Additional history obtained from family. The patient's history was concerning for back pain. Differential diagnosis: Etiologies such as musculoskeletal, disc herniation, fracture, aortic disease, metastatic disease, cord compression, discitis, infection, renal colic, gastrointestinal, acute exacerbation of chronic back pain, sciatica, cauda equina, as well as others were entertained. Physical findings: As above. ER treatment provided: Dilaudid On reassessment the patient felt better. Diagnostics interpreted by me: The labs revealed anemia, elevated creatinine and patient is due for dialysis in the morning Imaging studies: MRI L SPINE : Comparison: MRI lumbar spine 01/28/22 Motion artifact limits evaluation. No convincing evidence of significant interval change from prior allowing for artifact. Redemonstration of metastatic disease including pathologic L4 fracture with retropulsion and possible epidural extension with severe resulting canal stenosis, suggesting cauda equina syndrome in the appropriate clinical setting. Worsening of the severe canal stenosis is not excluded. Radiologist:Indio Harris MD MRI T SPINE : Comparison: MRI thoracic spine 01/28/22 Motion artifact limits evaluation. Pathologic compression fracture of T6 vertebral body with retropulsion causing severe canal stenosis is again noted. Worsening canal stenosis and cord compression is suspected but comparison to prior significantly limited by motion artifact. Radiologist: Asael Harris MD Consultation: A consultation was placed with Dr. Dean and recommends transfer to tertiary facility. The case was discussed and diagnostics were reviewed. I spoke to [place] [facility], Dr Chinchilla and states the patient can stay here and be evaluated by Dr. Dean in the morning. He states the patient has a poor prognosis with a metastatic neuroendocrine carcinoma. I respoke to medicine and patient will be admitted to their service. Currently [facility] [place] has no beds also. Dr. Orourke will evaluate the patient for admission. This appears to be consistent with cauda equina syndrome. Spine recommends transfer. [place] was contacted. [facility] [place] recommends the patient stay here and be evaluated by her local orthopedic spine surgeon. She will be admitted. Medicine will evaluate. By the evaluation outlined above emergent etiologies such as aortic disease, infection, renal colic, gastrointestinal, as well as others were deemed relatively unlikely. The pt informed about the findings as listed above. All questions were answered and pleased with the treatment. The chart was completed utilizing [employer] Speech voice recognition software. Grammatical errors, random word insertions, pronoun errors, and incomplete sentences are an occassional consequence of this system due to software limitations, ambient noise, and hardware issues. Any formal questions or concerns about the content, text, or information contained within the body of this dictation should be directly addressed to the physician assistant case manager for clarification. Impression & Plan Cauda equina syndrome, Back pain Discharge Plan Visit Data Chief Complaint: Back Injury/Pain Stated Complaint: BACK PAIN, RADIATION TREATMENT ED Provider: Billy Simpson ED Midlevel Provider: Mehreen Adler Discharge Problem: Cauda equina syndrome, Back pain Patient Disposition: Admitted As Inpatient Condition: Fair Discharge Instructions Interventions: ED Discharge Assessment Last Done: 02/24/22 05:39
[2022-02-23 23:32] LABS: C Reactive Protein 23.55 mg/dl (0-0.5); Potassium 3.8 mmol/L (3.5-5.1)
[2022-02-23] MEDS ORDERED: HYDROmorphone INJ 1 MG/ML SYRINGE IV STA (23:56)
[2022-02-23] MEDS ORDERED: HYDROmorphone INJ 1 MG/ML SYRINGE ONE (23:57)
--- NOTE | 2022-02-24 04:33 | History and Physical Report ---
DATE OF ADMISSION: 02/24/2022. CHIEF COMPLAINT: Severe back pain. HISTORY OF PRESENT ILLNESS: This is a 56-year-old female with past medical history significant type 2 diabetes, end-stage renal disease on hemodialysis, diabetic polyneuropathy, hyperlipidemia, history of hypothyroidism, hypertension, history of osteomyelitis of the left foot, status post treatment, follows with [facility], completed antibiotic course, anemia of chronic kidney disease, history of metastatic neuroendocrine cancer deemed not a candidate for chemotherapy, status post radiation treatment presents with severe back pain. The patient recently presented to the hospital with severe back pain and found to have new lesions in the thoracic and lumbar spine, burst fracture of T4 and L4 from metastatic neuroendocrine tumor. She completed palliative radiation treatment and she was discharged on pain medications. Following up with the palliative care. She is on methadone, p.o. Dilaudid and calcitonin spray. The patient currently received Ativan and Dilaudid before the MRI scans and currently she is very drowsy. As per , the pain got worse yesterday morning and when he came home, she was in a lot of pain. She is wheelchair bound for the last 2 to 3 months. She is able to stand up, but yesterday, could not stand up, that is the reason she was brought into the hospital. As per no complaints of chest pain or shortness of breath, or nausea or vomiting or abdominal pain. As per , she is eating and drinking okay, afebrile. Could not get much history at this time. She also has dressing on the left foot and also some ulcers on the heel on the left foot. As per , she is not on antibiotics, she is followed by the wound clinic. ALLERGIES: IODINATED CONTRAST MEDIA, OMEPRAZOLE. PAST MEDICAL HISTORY: As mentioned above. PAST SURGICAL HISTORY: Amputation of the right big toe, , cystourethroscopy with biopsy, cystoscopy, injection of lumbosacral spine, ligation of oviducts, partial removal of the left foot bone, total thyroidectomy on the right side, cholecystectomy open surgery. MEDICATIONS: The patient is on calcitonin spray 1 spray a.m., Colace 100 mg p.o. b.i.d. p.r.n. hydromorphone 8 mg p.o. q. 3 hours p.r.n., insulin as directed, insulin glargine 30 units a.m., lactobacillus 1 tablet p.o. b.i.d., lactulose 50 mg p.o. b.i.d. p.r.n., levothyroxine 125 mcg p.o. daily, methadone 10 mg p.o. t.i.d., Ira-Umer 1 tablet p.o. daily, Renvela 1600 mg p.o. t.i.d. with meals, Velphoro 500 mg p.o.qid FAMILY HISTORY: Significant for father has diabetes, hypertension; mother has diabetes; paternal grandfather had heart attack, CHF. SOCIAL HISTORY: , no smoking, alcohol rare, no drug use. REVIEW OF SYSTEMS: Currently unavailable as the patient is very drowsy. PHYSICAL EXAMINATION: GENERAL: The patient is drowsy. VITAL SIGNS: Temperature 37.4, pulse 110, respirations 17, blood pressure 164/87, oxygen 99% on 1 liter. HEENT: Pupils are sluggish to react. No facial droop, atraumatic. NECK: No JVD, no neck masses. CARDIOVASCULAR: S1 and S2 heard. Regular rate and rhythm. No murmur, no gallop. RESPIRATORY SYSTEM: Normal AP diameter. No accessory muscle use. No wheezing, no crackles. ABDOMEN: Soft, bowel sounds present, no distention, CENTRAL NERVOUS SYSTEM: Currently very drowsy. EXTREMITIES: Right lower extremity is normal. Left lower extremity is somewhat swollen. Left heel ulcer and foot ulcer seen and no active drainage seen. LABORATORY DATA: WBC 6.6, hemoglobin 8.7, hematocrit 28.7, platelets 210. ESR 71. Sodium 133, potassium 3.8, chloride 98, bicarbonate 26, BUN 47, creatinine 4.7, serum glucose 87, calcium 9.4, total bilirubin 0.5, AST 22, ALT 14, alkaline phosphatase 95. C-reactive protein 23. SARS-CoV-2 rapid test negative. IMAGING DATA: Lumbar and thoracic spine MRI results are pending. ASSESSMENT AND PLAN: This is a 56-year-old female who presents with severe intractable back pain. 1. Severe intractable back pain: She is mostly wheelchair bound .Metastatic neuroendocrine tumor. Finished palliative radiation therapy recently. She is wheelchair bound for the last 2-3 months, but able to stand up as per . Since last night, she has been not able to stand up. The patient is very drowsy, she got Ativan and Dilaudid for MRI scans. Continue home methadone. We will hold her home Dilaudid and place her on IV Dilaudid p.r.n. Consult pain management and orthopedic surgery. Based on the MRI scan, may need to consult radiation oncology again.Last admissions MRI scan showed burst fx of T4 and L4 Closely monitor in the med tele. 2. Diabetes: Continue home long-acting insulin .ISS. Follow the blood sugars. 3. History of end-stage renal disease, on hemodialysis: Nephrology consult. 4. History of hypothyroidism: Continue Synthroid. 5. Deep venous thrombosis prophylaxis: scds. If no procedure planned will place on heparin sub q.. Addendum: Preliminary report of MRI scan showing cauda equina syndrome. ER talked with and was advised for transfer. Er talked with Cody Olson and he didnot accepted the patient and advised to keep patient here as patient had multiple co morbidites and even transferred he may not do surgery also tight on beds.Notified the of the situation. DISPOSITION: Closely monitor in the med tele. PT/OT prior to discharge. Social service to help with discharge planning. Job ID: [id number] MTDD
[2022-02-24] MEDS ORDERED: HEPARIN SOD 5,000 UNIT/0.5 ML VIAL SQ SCH (06:14)
[2022-02-24] MEDS ORDERED: LACTULOSE SYRUP 20 GM/30 ML UDC PO PRN (06:14)
[2022-02-24] MEDS ORDERED: SODIUM CHLORIDE 0.9% 1000ML 1,000 ML IV SCH (06:14)
[2022-02-24] MEDS ORDERED: DOCUSATE SODIUM 100 MG CAP PO PRN (06:14)
[2022-02-24] MEDS ORDERED: POLYETHYLENE (MIRALAX) 17 GM PACK PO PRN (06:14)
[2022-02-24] MEDS ORDERED: ONDANSETRON INJ 2 MG/ML 2 ML VIAL IV PRN (06:14)
[2022-02-24] MEDS ORDERED: NITROGLYCERIN SL 0.4 MG/TAB TAB SL PRN (06:14)
[2022-02-24] MEDS ORDERED: HYDROmorphone INJ 1 MG/ML SYRINGE ONE (06:26)
[2022-02-24] MEDS: HYDROmorphone INJ 1 MG/ML SYRINGE IV PRN ×3 (06:32→20:40)
--- NOTE | 2022-02-24 06:51 | Communication Note ---
Date of Service: February 24, 2022 Also called [facility] the answering service said they don't hvae beds and they have someone waiting for 4 days for bed.Advised to look for other hospitals and call back if no beds found. Thanks
--- NOTE | 2022-02-24 08:48 | Magnetic Resonance Report ---
MR lumbar spine wo con CLINICAL HISTORY: cant walk, known CA TECHNIQUE: Multiplanar sequences through the lumbar spine were obtained, without intravenous contrast . Comparison: Comparison is made to MRI lumbar spine 01/28/2022 FINDINGS: Exam is limited by patient motion. Redemonstration of metastatic disease in L3, L4, and L5 with patho logic L4 fracture with retropulsion and possible epidural extension. The spinal canal is significantl y narrowed with AP diameter of 5 mm. This is similar in appearance on prior exam within limits of mot ion degraded exam. Redemonstration of marrow signal abnormality in the upper lumbar spine which may represent iron overl oad, with correspondingly decreased signal in the liver and spleen. T1 signal in the lower lumbar spi ne may represent radiation changes. IMPRESSION: 1. Overall similar appearance of pathologic burst fracture of L4 with retropulsion. Evaluation is li mited by patient motion however there is likely severe canal and neuroforaminal stenosis at this leve l. No definite cord edema is seen. 2. Additional findings as above. ACT 112: Negative or not required by law. Electronically signed by: Rm Flores M.D. 02/24/2022 8:45 AM
[2022-02-24 09:00] LABS: Basophils # (auto) 0.01 K/uL (0-0.2); Basophils % (auto) 0.2 %; Eosinophils # (auto) 0.02 K/uL (0-0.50); Eosinophils % (auto) 0.4 %; Hemoglobin 8.6 g/dl (12.0-16.0); Immature Granulocytes # (auto) 0.02 K/uL (0.00-0.02); Immature Granulocytes % (auto) 0.4 %; Lymphocytes # (auto) 0.34 K/uL (1.2-3.4); Lymphocytes % (auto) 6.7 %; Mean Corpuscular Hemoglobin 31.2 pg (25.0-34.0); Mean Corpuscular Hgb Conc 30.7 g/dL (32.0-36.0); Mean Corpuscular Volume 101.4 fL (80.0-100.0); Mean Platelet Volume 8.9 fL (9.4-12.3); Monocytes # (auto) 0.35 K/uL (0.24-0.82); Monocytes % (auto) 6.9 %; Neutrophils # (auto) 4.31 K/uL (1.4-6.5); Neutrophils % (auto) 85.4 %; Platelet Count 177 K/uL (130-400); RDW Coefficient of Variation 16.8 % (11.5-14.5); RDW Standard Deviation 62.3 fL (36.4-46.3); Red Blood Count 2.76 M/uL (3.93-5.22); White Blood Count 5.05 K/ul (4.8-10.8)
[2022-02-24] MEDS: INSULIN ASPART PER UNIT SC SCH ×4 (09:20→20:14)
[2022-02-24 09:47] LABS: Estimated Average Glucose 91 mg/dl; Hemoglobin A1C 4.8 % (4.5-5.6)
[2022-02-24] MEDS ORDERED: SODIUM CHLORIDE 0.9% 1000ML 1,000 ML IV PRN (09:49)
[2022-02-24] MEDS ORDERED: HEPARIN SOD (PORCINE) 1000 UNIT/ML IV ONE (09:49)
[2022-02-24] MEDS ORDERED: EPOETIN ALFA 10,000 UNITS/ML VIAL IV ONE (09:49)
[2022-02-24] MEDS: SEVELAMER HCL 800 MG TABLET PO SCH ×3 (09:51→18:16)
[2022-02-24] MEDS: LEVOTHYROXINE SODIUM 125 MCG TABLET PO SCH (09:51)
[2022-02-24 09:52] LABS: BUN Creatinine Ratio 10.2 (10-20); Calcium 9.1 mg/dl (8.5-10.1); Creatinine Clr Calc Pharmacy 12.6 ml/min; Est GFR (African American) 10.8 ml/min; Est GFR (Non-African American) 9.3 ml/min; Potassium 3.8 mmol/L (3.5-5.1)
[2022-02-24] MEDS: ADVANCED PROBIOTIC 1250 MG CAPSULE PO SCH ×2 (09:52→20:40)
[2022-02-24] MEDS: VITAMIN B COMPLEX TAB PO SCH (09:52)
[2022-02-24] MEDS: CALCITONIN SALMON NA 200 IU/AC 3.7 ML BTL SCH (09:52)
[2022-02-24] MEDS: LANTUS PER UNIT CHARGE SQ SCH (10:06)
[2022-02-24] MEDS: METHADONE HCL 10 MG TAB PO SCH ×3 (10:12→20:40)
--- NOTE | 2022-02-24 10:26 | Magnetic Resonance Report ---
MR thoracic spine wo con HISTORY: 56 years-old Female cant walk, known CA acute mid back pain COMPARISON: MRI thoracic spine 01/28/2022, CT thoracic spine 01/24/2022. TECHNIQUE: Multiplanar multisequence MRI of the thoracic spine was obtained without the use of IV con trast. FINDINGS: Motion degraded exam. Heterogeneous signal within the lumbar spine may represent skeletal metastasis versus artifact. Osteolytic destructive lesion of the T6 vertebral body with pathologic burst fractur e is redemonstrated. Retropulsion/mass extension posteriorly measures up to approximately 8 mm narrow ing the AP dimension of the thecal sac to approximately 6 mm. Large paravertebral soft tissue compone nt associated with the T6 lesion is again noted with erosive changes involving the T5, T7 left hoop driving machine operator ior seventh rib. Severe central canal stenosis at T5-T6 with at least moderate bilateral neural jerald inal narrowing. The degree of central canal stenosis has likely slightly progressed. Normal signal of the thoracic spinal cord. The conus medullaris terminates at T12-L1. IMPRESSION: 1. Markedly motion degraded exam. 2. Osteolytic T6 vertebral body lesion with pathologic burst fracture redemonstrated resulting in sev ere central canal stenosis with moderate bilateral neural foraminal narrowing at T5-T6. The degree of central canal stenosis appears similar to slightly progressed from 01/28/2022. 3. Large paravertebral soft tissue component associated with the T6 lesion is redemonstrated which in volves the T5 and T7 vertebral bodies and left posterior seventh rib. ACT 112: Negative or not required by law. The above report was generated using voice recognition software. It may contain grammatical, syntax o r spelling errors. Electronically signed by: Rajeev Roblero M.D. 02/24/2022 10:24 AM
--- NOTE | 2022-02-24 11:00 | Orthopedic Consultation ---
Date of Consultation February 24, 2022 Assessment & Plan (1) Neuroendocrine tumor: I did discuss with the patient her neurologic status my concern that she is having worsening compression of the thoracic cord explaining the subsequent 6 dense numbness from the abdomen distally. I have again discussed with her that her current pathology is beyond the scope of my skill set. Unfortunately tertiary care is unable to manage her at this time. She states this morning she is not interested in surgery. I think is best to obtain further information regarding her status and long-term survival from oncology. Any surgery would be extensive in nature she is extreme with prescription for healing issues which c ould take months to manage. That said it may not reverse her neurologic presentation. At this point I would stand down surgically based on her current information and discussions. History of Present Illness Reason for Consultation: Increased lower extremity weakness Attending Physician: Vicente Elkins MD History of Present Illness This is a 56-year-old female that I am seeing over a week ago for concerns regarding metastatic neuroendocrine tumor involving the thoracic lumbar spine. She presents yesterday with a decline in status and ability to stand on her legs without collapse. This is a change in her neurologic status and was brought into the emergency room by her . This morning she is still somewhat drowsy but mentions normal but active weekend. She describes numbness from the mid abdomen down through her legs. She describes a decline in strength in lower extremities and unable to stand. She is no significant pain at this time. Allergies Allergy/AdvReac Type Severity Reaction Status Date / Time Iodinated Contrast Media AdvReac Severe Patient Verified 02/24/22 02:16 has kidney failure omeprazole AdvReac Severe Increased Verified 02/24/22 02:16 her acid reflux Home Medications Medication Instructions Recorded Confirmed Type insulin aspart U-100 100 unit/mL 1 sliding scale dose subcut 03/15/21 02/24/22 History subcutaneous solution (Novolog USEASDIRECTD U-100 Insulin aspart) levothyroxine 125 mcg tablet 125 mcg PO DAILYBB 03/15/21 02/24/22 History docusate sodium 100 mg capsule 100 mg PO BID PRN Constipation 06/11/21 02/24/22 History (Colace) sevelamer carbonate 800 mg tablet 1,600 mg PO TIDM 07/30/21 02/24/22 History (Renvela) vitamin B complex-vitamin C-folic 1 tab PO QAM 09/11/21 02/24/22 History acid 0.8 mg tablet (Ira-Umer) hydromorphone 8 mg tablet 8 mg PO Q3H PRN Pain 02/02/22 02/24/22 History calcitonin (salmon) 200 1 spray NA QAM 02/19/22 02/24/22 History unit/actuation nasal spray insulin glargine 100 unit/mL (3 32 unit subcut QAM 02/19/22 02/24/22 History mL) subcutaneous pen (Basaglar KwikPen U-100 Insulin) methadone 10 mg tablet 10 mg PO TID 02/19/22 02/24/22 History Lactobacillus acidoph-L.bulgaricus 1 tab PO AMPM 02/24/22 02/24/22 History 1 million cell chewable tablet lactulose 10 gram/15 mL oral 15 ml PO BID PRN Constipation 02/24/22 02/24/22 History solution sucroferric oxyhydroxide 500 mg 500 mg PO QID 02/24/22 02/24/22 History chewable tablet (Velphoro) Patient History Medical History Acid reflux Anemia Chronic narcotic dependence Diabetes Diabetic retinopathy ESRD (end stage renal disease) On dialysis esdras @ [facility] H/O vocal cord paralysis Right side Hypertension MRSA bacteremia 2017; unclear if vertebral or R diabetic foot wound source 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---only had radiation treatments Osteomyelitis of left foot chronic 2020 and 2021 Radicular pain of thoracic region Retinal hemorrhage, right eye Sepsis Thyroid cancer had sx Thyroid nodule Wound abscess left foot diabetic ulcer Surgical History Amputation of right great toe AVF (arteriovenous fistula) endovascular L; created 09/2020 H/O thyroidectomy Partial thyroidectomy History of cholecystectomy History of esophagogastroduodenoscopy (EGD) History of surgery Surgery to removed benign tumor from right vocal cord; History of surgery (~01/26/22) permcath placed--pt states her AV fistula was not working properly so permcath placed at that time by Dr. Strong @ [facility]--per pt on 02/19/22 she states her AV fistula is now working properly History of surgical procedure on eye proper using laser History of tooth extraction partial upper denture Hx of cataract surgery Bilateral Hx of tonsillectomy Previous section x2 Family History Mother , 70yo Diabetes Valvular heart disease Father , 74yo Diabetes Pneumonia Brother No problems noted. Brother No problems noted. Sister Kidney disease Dialysis patient Daughter No problems noted. Daughter Diabetes Other No family history of adverse response to anesthesia Social History Smoking Status: Never smoker Second Hand Exposure: No; Hx Alcohol Use: No Hx Substance Use: No Preferred Language: Mongolian Communication Ability: Impaired Visual Impairment: No Limitations Hearing Ability: Normal Telegrapher Agent Required: No Beliefs That Will Affect Care: None marital status: Current Living Situation: Spouse Current Living Situation Comment: Home w/ current occupational status: disabled How many Children do You have: 2 Feels Safe at Home: Yes caffeine: No during the past year weight has: remained stable Assistive Devices: Bedside Commode, Walker and Wheelchair Physical Exam Physical Exam: On exam she is cooperative but somewhat drowsy. She has plantar flexion dorsiflexion bilateral extremities. Sensory is markedly diminished to cold and touch to lower extremities. He can reflexes absent. She does have evidence of several surgeries to the left foot consistent with osteomyelitis. Results & Data ([facility]) Vital Signs (Past 12 Hours) Vital Signs Temp Pulse Resp BP Pulse Ox O2 Del Method O2 Flow Rate 02/24/22 06:32 37.0 C 112 H 18 174/81 H 97 Nasal Cannula 2 02/24/22 04:00 110 H 19 141/95 H 99 Room Air 02/24/22 02:00 110 H 17 164/87 H 99 02/24/22 00:34 116 H 16 161/89 H 95 Nasal Cannula 1
--- NOTE | 2022-02-24 11:45 | Consultation Report ---
NEPHROLOGY CONSULTATION NOTE DATE OF SERVICE: 02/24/2022. REASON FOR CONSULTATION: Dialysis patient admitted with severe intractable back pain. HISTORY OF PRESENT ILLNESS: The patient is a 56-year-old female with longstanding history of type 2 diabetes, end-stage renal disease on hemodialysis and multiple complications related with ESRD and di abetes. She gets dialysis at the [facility] on Wednesday, , Wednesday and she did have he r dialysis on Wednesday as per her schedule. The patient has significant history of cancer with metas tatic neuroendocrine cancer deemed not a candidate for chemotherapy, status post radiation with known fracture in the thoracic and the lumbar spine. In fact, she was admitted in the hospital just recen tly and underwent palliative radiation treatment and was discharged on pain medication. The patient is currently on methadone p.o. Dilaudid as well as calcitonin spray. The patient is requiring extrem nancy high dose of pain medications, which makes her very drowsy. At this point, she can barely speak, but she did say she still has a lot of pain. Denies any nausea, vomiting, chest pain or shortness o f breath, or other symptoms. Hard to obtain history from the patient. She also had dressing on her left foot with chronic ulcer on the heel of the left foot. At this time, she is not on antibiotics an d she is followed by wound clinic. Her blood pressure is somewhat high, but she is getting IV fluid. Electrolytes are reasonable. Hemoglobin is low. MRI of the spine was done and shows multiple find ings with pathological burst fracture. PAST MEDICAL AND SURGICAL HISTORY: Includes longstanding type 2 diabetes, end-stage renal disease on hemodialysis, TTS, diabetic polyneuropathy, hyperlipidemia, history of hypothyroidism, hypertension, history of osteomyelitis of the left foot, status post treatment, anemia, ESRD, history of metastati c neuroendocrine cancer deemed not a candidate for chemotherapy, status post palliative radiation keri atment, amputation of the right big toe, , cystourethroscopy with biopsy, cystoscopy, inject ion of the spine, ligation of oviducts, total thyroidectomy, cholecystectomy. MEDICATIONS AT HOME: Includes calcitonin, Colace, hydromorphone, insulin as directed, lactulose, levo thyroxine, methadone, Ira-Umer, Renvela, Velphoro. FAMILY HISTORY: Significant for diabetes, hypertension, heart failure. SOCIAL HISTORY: . No smoking. Rare alcohol, no drugs. REVIEW OF SYSTEMS: Very hard to obtain as the patient is very drowsy from the pain medications. She denies having any chest pain, shortness of breath, but as stated it was very hard to obtain the hist ory. PHYSICAL EXAMINATION: GENERAL: A middle-aged white female, who appears chronically ill. She appears very drowsy with slur ring of speech. HEENT: Mucous membranes are moist. NECK: Supple. No JVD. VITAL SIGNS: Blood pressure 174/81, pulse rate 112, respiratory rate 18, temperature 37 degrees cels ius, 97% on 2 liter nasal cannula. HEENT: Mucous membrane is moist. CHEST: Bilateral decreased breath sound, but very poor inspiratory effort. CARDIOVASCULAR: S1 and S2, regular. ABDOMEN: Soft, nontender. EXTREMITIES: Show no edema in the right. There is some edema with chronic skin changes in the left foot where she also has a chronic ulcer. LABORATORY TEST: Reviewed. Hemoglobin is low at 8.6, platelet count 177. Sodium 135, potassium 3.8 , BUN 50, creatinine 4.89. ASSESSMENT AND PLAN: A 56-year-old female with end-stage renal disease on hemodialysis, now admitted with severe intractable back pain related with her known pathological fracture. She is getting dial ysis later today as per her normal schedule. She is not eating much. We will do her for 3 hours on a 3K bath and try to take about 2 kilos off, we will be using her fistula. Thank you very much for the consult. Job ID: [id number]
--- NOTE | 2022-02-24 12:36 | Pain Management Consultation ---
Date of Consultation February 24, 2022 Assessment & Plan (1) Cauda equina syndrome: (2) Back pain: Plan Patient was not in the room when I went to see her. Will follow up with her tomorrow. History of Present Illness Attending Physician: Vicente Elkins MD Allergies Allergy/AdvReac Type Severity Reaction Status Date / Time Iodinated Contrast Media AdvReac Severe Patient Verified 02/24/22 02:16 has kidney failure omeprazole AdvReac Severe Increased Verified 02/24/22 02:16 her acid reflux Home Medications Medication Instructions Recorded Confirmed Type insulin aspart U-100 100 unit/mL 1 sliding scale dose subcut 03/15/21 02/24/22 History subcutaneous solution (Novolog USEASDIRECTD U-100 Insulin aspart) levothyroxine 125 mcg tablet 125 mcg PO DAILYBB 03/15/21 02/24/22 History docusate sodium 100 mg capsule 100 mg PO BID PRN Constipation 06/11/21 02/24/22 History (Colace) sevelamer carbonate 800 mg tablet 1,600 mg PO TIDM 07/30/21 02/24/22 History (Renvela) vitamin B complex-vitamin C-folic 1 tab PO QAM 09/11/21 02/24/22 History acid 0.8 mg tablet (Ira-Umer) hydromorphone 8 mg tablet 8 mg PO Q3H PRN Pain 02/02/22 02/24/22 History calcitonin (salmon) 200 1 spray NA QAM 02/19/22 02/24/22 History unit/actuation nasal spray insulin glargine 100 unit/mL (3 32 unit subcut QAM 02/19/22 02/24/22 History mL) subcutaneous pen (Basaglar KwikPen U-100 Insulin) methadone 10 mg tablet 10 mg PO TID 02/19/22 02/24/22 History Lactobacillus acidoph-L.bulgaricus 1 tab PO AMPM 02/24/22 02/24/22 History 1 million cell chewable tablet lactulose 10 gram/15 mL oral 15 ml PO BID PRN Constipation 02/24/22 02/24/22 History solution sucroferric oxyhydroxide 500 mg 500 mg PO QID 02/24/22 02/24/22 History chewable tablet (Velphoro) Patient History Medical History Acid reflux Anemia Chronic narcotic dependence Diabetes Diabetic retinopathy ESRD (end stage renal disease) On dialysis [id number] @ [facility] H/O vocal cord paralysis Right side Hypertension MRSA bacteremia 2017; unclear if vertebral or R diabetic foot wound source 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---only had radiation treatments Osteomyelitis of left foot chronic 2020 and 2021 Radicular pain of thoracic region Retinal hemorrhage, right eye Sepsis Thyroid cancer had sx Thyroid nodule Wound abscess left foot diabetic ulcer Surgical History Amputation of right great toe AVF (arteriovenous fistula) endovascular L; created 09/2020 H/O thyroidectomy Partial thyroidectomy History of cholecystectomy History of esophagogastroduodenoscopy (EGD) History of surgery Surgery to removed benign tumor from right vocal cord; History of surgery (~01/26/22) permcath placed--pt states her AV fistula was not working properly so permcath placed at that time by Dr. Strong @ [facility]--per pt on 02/19/22 she states her AV fistula is now working properly History of surgical procedure on eye proper using laser History of tooth extraction partial upper denture Hx of cataract surgery Bilateral Hx of tonsillectomy Previous section x2 Family History Mother , 70yo Diabetes Valvular heart disease Father , 74yo Diabetes Pneumonia Brother No problems noted. Brother No problems noted. Sister Kidney disease Dialysis patient Daughter No problems noted. Daughter Diabetes Other No family history of adverse response to anesthesia Social History Smoking Status: Never smoker Second Hand Exposure: No; Do You Dip or Chew Tobacco: No; Tobacco Cessation Education Requested by Patient: No Hx Alcohol Use: No Hx Substance Use: No Preferred Language: Danish Communication Ability: Impaired Visual Impairment: No Limitations Hearing Ability: Normal De Icer Finisher Required: No Beliefs That Will Affect Care: None marital status: Current Living Situation: Spouse Current Living Situation Comment: Home w/ current occupational status: disabled How many Children do You have: 2 Other Information That Helps Us Care for You: No Feels Safe at Home: Yes Safety Concerns: Feels Safe At This Time caffeine: No during the past year weight has: remained stable Assistive Devices: Bedside Commode, Walker and Wheelchair
[2022-02-24] MEDS: VELPHORO 500 MG PO SCH ×3 (18:15→20:27)
[2022-02-24] MEDS: ACETAMINOPHEN 325 MG TAB PO PRN (18:20)
--- NOTE | 2022-02-24 22:23 | Hospitalist Progress Note ---
Date of Service February 24, 2022 Assessment & Plan Admission and Anticipated Discharge Date Admission Date: February 24, 2022 Subjective Patient seen and examined on dialysis. Patient is awake, able to answer questions appropriately. Able to move upper extremities, and also able to move lower extremities while laying in bed. However she could not lift her legs above, without support. Gait was not assessed. Discussed MRI findings and conversations that happened on admission, overnight. Patient seen by Dr. Dean this morning. Discussed with Dr. Dean that surgical intervention at this point would not be recommended/procedure would be extensive and would require also extensive recovery time. Please see his note for further detail. Also recommended to contact patient's oncologist for furt her recommendation regarding her future care/prognosis. Dr. Hannon, patient's oncologist contacted and her case discussed. Prognosis limited given patient's other underlying conditions, such as end-stage renal disease on dialysis. However not opposed to surgical intervention. I contacted [facility] transfer center again to follow-up on their conversation from overnight. I asked radiology here to push images from January and from current admission for comparison. I only was connected to triage officer, and did not discuss with orthopedics or neurosurgery. The triage officer requested Dr. Dean to call transfer center to further discuss. Dr. Dean aware, and plans to call transfer center tomorrow. Pain management also consulted, as well as palliative medicine. Pain management did not get to see the patient, as per their note, (as patient was likely on dialysis). MD Severo Results & Data Results & Data ([facility]) Vital Signs (Past 12 Hours) Vital Signs Temp Pulse Pulse Pulse Resp BP BP 02/24/22 19:24 37.2 C 89 18 99/58 L 02/24/22 15:00 37.0 C 105 H 14 123/70 02/24/22 14:00 98 H 110/58 L 02/24/22 13:30 100 H 104/56 L 02/24/22 13:00 95 H 116/57 L 02/24/22 14:30 37 C 102 H 127/64 02/24/22 12:30 103 H 143/69 H 02/24/22 12:00 94 H 129/81 02/24/22 11:30 98 H 146/73 H 02/24/22 11:07 99 H 161/78 H 02/24/22 10:59 37.4 C 104 H Pulse Ox O2 Del Method O2 Flow Rate 02/24/22 19:24 98 Nasal Cannula 2 02/24/22 15:00 96 Nasal Cannula 2 02/24/22 14:00 02/24/22 13:30 02/24/22 13:00 02/24/22 14:30 02/24/22 12:30 02/24/22 12:00 02/24/22 11:30 02/24/22 11:07 02/24/22 10:59
[2022-02-25] MEDS: HYDROmorphone INJ 1 MG/ML SYRINGE IV PRN ×2 (01:00→05:22)
[2022-02-25] MEDS: LEVOTHYROXINE SODIUM 125 MCG TABLET PO SCH (06:09)
[2022-02-25] MEDS: INSULIN ASPART PER UNIT SC SCH ×4 (07:55→20:55)
[2022-02-25] MEDS: SEVELAMER HCL 800 MG TABLET PO SCH ×3 (07:56→15:21)
[2022-02-25] MEDS: VITAMIN B COMPLEX TAB PO SCH (07:56)
[2022-02-25] MEDS: ADVANCED PROBIOTIC 1250 MG CAPSULE PO SCH ×2 (07:56→20:12)
[2022-02-25] MEDS: VELPHORO 500 MG PO SCH ×4 (07:57→20:13)
[2022-02-25] MEDS: CALCITONIN SALMON NA 200 IU/AC 3.7 ML BTL SCH (07:58)
[2022-02-25] MEDS: METHADONE HCL 10 MG TAB PO SCH ×3 (08:07→20:11)
[2022-02-25] MEDS: LANTUS PER UNIT CHARGE SQ SCH (08:12)
[2022-02-25] MEDS ORDERED: HYDROmorphone INJ 0.5 MG/0.5 ML SYR IV PRN (09:21)
[2022-02-25] MEDS ORDERED: GLUCOSE 10 TAB/TUBE PO PRN (09:30)
[2022-02-25] MEDS ORDERED: GLUCAGON FOR INJ 1 MG VIAL IM PRN (09:30)
[2022-02-25] MEDS ORDERED: GLUCOSE 40% GEL 15 GM TUBE PO PRN (09:30)
[2022-02-25] MEDS ORDERED: DEXTROSE 50% 50 ML SYRINGE IV PRN (09:30)
[2022-02-25] MEDS ORDERED: CARBOHYDRATES FOR HYPOGLYCEMIA PO PRN (09:30)
--- NOTE | 2022-02-25 11:50 | Pain Management Consultation ---
Date of Consultation February 25, 2022 Assessment & Plan (1) Cauda equina syndrome: (2) Back pain: Plan 1. Continue Methadone 10mg TID 2. Recommend a breakthrough medication such as Oxycodone 5-10mg to take PRN breakthrough pain. 3. If Oxycodone is not effective, consider switching to oral Dilaudid which she has previously tolerated. 4. She is agreeable to trying relying on the oral medications more than the IV Dilaudid. Thank you for the consultation. Please contact with any questions or concerns. History of Present Illness Attending Physician: Renea Dennis DO History of Present Illness Carlita is a 56 year old female with a significant history of metastatic neuroendocrine cancer. She is being treated with radiation and not a candidate for chemotherapy. She has been experiencing increased low back pain and leg weakness. She does have a known L4 burst fracture with retropulsion. She has been wheelchair-bound for the last 2 to 3 months. She was previously able to stand and transfer but 2 days ago she was unable to. If she stood up her legs would get weak. At home she has been on the regimen of methadone 10 mg 3 times daily as well as Dilaudid 8 mg every 3 hours if needed. No bowel/bladder incontinence, foot drop. There is leg weakness. Allergies Allergy/AdvReac Type Severity Reaction Status Date / Time Iodinated Contrast Media AdvReac Severe Patient Verified 02/24/22 02:16 has kidney failure omeprazole AdvReac Severe Increased Verified 02/24/22 02:16 her acid reflux Home Medications Medication Instructions Recorded Confirmed Type insulin aspart U-100 100 unit/mL 1 sliding scale dose subcut 03/15/21 02/24/22 History subcutaneous solution (Novolog USEASDIRECTD U-100 Insulin aspart) levothyroxine 125 mcg tablet 125 mcg PO DAILYBB 03/15/21 02/24/22 History docusate sodium 100 mg capsule 100 mg PO BID PRN Constipation 06/11/21 02/24/22 History (Colace) sevelamer carbonate 800 mg tablet 1,600 mg PO TIDM 07/30/21 02/24/22 History (Renvela) vitamin B complex-vitamin C-folic 1 tab PO QAM 09/11/21 02/24/22 History acid 0.8 mg tablet (Ira-Umer) hydromorphone 8 mg tablet 8 mg PO Q3H PRN Pain 02/02/22 02/24/22 History calcitonin (salmon) 200 1 spray NA QAM 02/19/22 02/24/22 History unit/actuation nasal spray insulin glargine 100 unit/mL (3 32 unit subcut QAM 02/19/22 02/24/22 History mL) subcutaneous pen (Basaglar KwikPen U-100 Insulin) methadone 10 mg tablet 10 mg PO TID 02/19/22 02/24/22 History Lactobacillus acidoph-L.bulgaricus 1 tab PO AMPM 02/24/22 02/24/22 History 1 million cell chewable tablet lactulose 10 gram/15 mL oral 15 ml PO BID PRN Constipation 02/24/22 02/24/22 History solution sucroferric oxyhydroxide 500 mg 500 mg PO QID 02/24/22 02/24/22 History chewable tablet (Velphoro) Patient History Medical History Acid reflux Anemia Chronic narcotic dependence Diabetes Diabetic retinopathy ESRD (end stage renal disease) On dialysis esdras @ [facility] H/O vocal cord paralysis Right side Hypertension MRSA bacteremia 2017; unclear if vertebral or R diabetic foot wound source 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---only had radiation treatments Osteomyelitis of left foot chronic 2020 and 2021 Radicular pain of thoracic region Retinal hemorrhage, right eye Sepsis Thyroid cancer had sx Thyroid nodule Wound abscess left foot diabetic ulcer Surgical History Amputation of right great toe AVF (arteriovenous fistula) endovascular L; created 09/2020 H/O thyroidectomy Partial thyroidectomy History of cholecystectomy History of esophagogastroduodenoscopy (EGD) History of surgery Surgery to removed benign tumor from right vocal cord; History of surgery (~01/26/22) permcath placed--pt states her AV fistula was not working properly so permcath placed at that time by Dr. Strong @ [facility]--per pt on 02/19/22 she states her AV fistula is now working properly History of surgical procedure on eye proper using laser History of tooth extraction partial upper denture Hx of cataract surgery Bilateral Hx of tonsillectomy Previous section x2 Family History Mother , 70yo Diabetes Valvular heart disease Father , 74yo Diabetes Pneumonia Brother No problems noted. Brother No problems noted. Sister Kidney disease Dialysis patient Daughter No problems noted. Daughter Diabetes Other No family history of adverse response to anesthesia Social History Smoking Status: Never smoker Second Hand Exposure: No; Do You Dip or Chew Tobacco: No; Tobacco Cessation Education Requested by Patient: No Hx Alcohol Use: No Hx Substance Use: No Preferred Language: Surinamese Communication Ability: Impaired Visual Impairment: No Limitations Hearing Ability: Normal Painter Rough Required: No Beliefs That Will Affect Care: None marital status: Current Living Situation: Spouse Current Living Situation Comment: Home w/ current occupational status: disabled How many Children do You have: 2 Other Information That Helps Us Care for You: No Feels Safe at Home: Yes Safety Concerns: Feels Safe At This Time caffeine: No during the past year weight has: remained stable Assistive Devices: Bedside Commode, Walker and Wheelchair Physical Exam Physical Exam: GENERAL: This is a 56 year old female that does not appear in any acute distress. HEAD/FACE: Normocephalic and atraumatic. EYES: No drainage or conjunctival injection. ENT: Nose without bleeding or discharge. Oral mucosa moist. NECK: Full ROM without apparent pain. No swelling or masses noted. RESPIRATORY: Patient with unlabored breathing. No signs of respiratory distress. CHEST/AXILLA: Chest movement symmetrical. No deformities noted. ABDOMEN/GI: No distension BACK: Mild diffuse lumbar tenderness. SKIN: [place], warm and dry. No rash noted. MS/EXTREMITY: 4/5 strength of the lower extremities. NEURO: Alert and appears oriented. Speech is fluent. Cranial Nerves are grossly intact. PSYCH: Alert and calm. Depressed affect. Results ([facility]) Diagnostic Review MRI Findings: MR lumbar spine wo con CLINICAL HISTORY: cant walk, known CA TECHNIQUE: Multiplanar sequences through the lumbar spine were obtained, without intravenous contrast. Comparison: Comparison is made to MRI lumbar spine 01/28/2022 FINDINGS: Exam is limited by patient motion. Redemonstration of metastatic disease in L3, L4, and L5 with pathologic L4 fracture with retropulsion and possible epidural extension. The spinal canal is significantly narrowed with AP diameter of 5 mm. This is similar in appearance on prior exam within limits of motion degraded exam. Redemonstration of marrow signal abnormality in the upper lumbar spine which may represent iron overload, with correspondingly decreased signal in the liver and spleen. T1 signal in the lower lumbar spine may represent radiation changes. IMPRESSION: 1. Overall similar appearance of pathologic burst fracture of L4 with retropulsion. Evaluation is limited by patient motion however there is likely severe canal and neuroforaminal stenosis at this level. No definite cord edema is seen. 2. Additional findings as above. ACT 112: Negative or not required by law. Electronically signed by: Rm Flores M.D. 02/24/2022 8:45 AM
[2022-02-25] MEDS: ACETAMINOPHEN 325 MG TAB PO PRN (12:01)
--- NOTE | 2022-02-25 12:34 | Hospitalist Progress Note ---
Date of Service February 25, 2022 Assessment & Plan (1) Pathologic fracture of thoracic vertebrae: (2) Neuroendocrine tumor: (3) Metastatic disease: Plan: Known history neuroendocrine tumor with metastatic disease to thoracic and lumbar spine. 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 She has received radiation therapy to her cervical and recently to the thoracic spine. Lumbar spine/pelvic radiation was performed June 2021. We will consider steroids so long as her recent temperature is not indicative of a fever from infection but would like a more long-term solution so therefore will consult radiation oncology. There are no surgical options available at this time per my discussion above with orthospine at [facility]. (4) Chronic narcotic dependence: Plan: Continues on chronic methadone. Pain management consulted and will continue with breakthrough oxycodone for pain from worsening metastatic disease above. Baclofen also being trialed. (5) ESRD (end stage renal disease): Plan: Nephrology following-patient on Wednesday dialysis. Continue per nephrology. Notably she has a history of nephrotic syndrome with last nephrology note reporting nonnephrotic range proteinuria for the first time in years. (6) Anemia: Plan: Chronic anemia of CKD-on Procrit as needed. Management per nephrology. (7) Osteomyelitis of left foot: Plan: Management per podiatric specialist (8) DMII (diabetes mellitus, type 2): Plan: Chronic with complications of retinopathy and polyneuropathy. A1c reflects good control. Continue insulin management. (9) Hypothyroidism: Plan: Chronic, stable. Continue Synthroid per home regimen. (10) DVT prophylaxis: Plan: Heparin Full code Disposition-no pending transfer to [facility] at this time. Will attempt to manage the neurologic deficits and pain with medications including possible steroids. Radiation oncology was consulted to discuss options. Currently patient has a temp of 38.3. We will need to work-up any infection prior to starting steroids. Renea Dennis DO [facility] hospitalist Admission and Anticipated Discharge Date Admission Date: February 24, 2022 Subjective 56-year-old female with pancreatic neuroendocrine tumor with metastatic disease presents with worsening mid to upper back pain and decreased strength in lower extremities. This morning her pain is severe in her mid and upper back area. The pain is considered sharp and is nonradiating. She is requesting to have a lift that will set her up on the bedside commode and help her have a bowel movement as she is constipated since Wednesday. She also feels her pain would be "100% better" if she were able to sit up in her wheelchair. Repositioning she feels like is the thing that will help her the most. She has been getting Dilaudid in addition to her home methadone and this has not been very helpful. Pain management is seeing her as well and discussing options. She does still make urine and is able to urinate but not very well on the bedpan. She has dialysis Wednesday and is being followed by nephrology. I did contact [facility] and spoke with the spine surgeon on-call. In his opinion she is not a good candidate for surgery given the recent radiation to tissue, her progressed disease with her also being a poor candidate for chemotherapy per oncology notes. Prognosis is uncertain. In his opinion, there is not much of a functional decline given the baseline function is stand and pivot. He is declining any surgical option and therefore we will not be transferring the patient. He is otherwise tolerating p.o. He declines any MiraLAX at this time until she knows she can get on a bedside commode. She does have chronic sensation loss in her feet from peripheral neuropathy but denies any additional sensation loss or sciatic symptoms in her legs. Review of Systems Review of Systems: All systems were reviewed and negative except as indicated above. Physical Exam Physical Exam: CONSTITUTIONAL: WNWD, vitals as above, generally appears in moderate distress from pain, holding her mid back EYES: normal conjunctivae, no scleral icterus ENT: external ear and nose normal, MMM NECK: trachea midline RESPIRATORY: clear to auscultation bilaterally, no crackles, rales or wheezes, normal respiratory effort CARDIOVASCULAR: regular rate and rhythm, S1 and 2 heard without murmurs, gallops or rubs, no JVD, no peripheral edema CHEST: inspection of chest was normal GASTROINTESTINAL: soft, nontender, ND, no guarding MUSCULOSKELETAL: strength 5/5 throughout with 3/5 strength in hip flexion, 5/5 hip extension, 5/5 knee extension, 3/5 knee flexion, 3/5 dorsi flexion on left foot, 5/5 plantar flexion left foot, 5/5 dorsi/plantar flexion on the right foot. SKIN: warm and dry, left foot is wrapped with Kerlix and I was unable to see the skin on the foot/ankle. Foot is warm and well-perfused NEUROLOGIC: patellar DTRs -could not elicit these bilaterally. No facial palsy, no dysarthria. Touch, pain and proprioception normal. CN 2-12 grossly intact, no sensory deficit, normal cognition, normal speech, no tremor PSYCHIATRIC: alert cooperative and oriented to person, place and time. Euthymic mood, makes good eye contact, language grossly intact, recent and remote memory grossly intact. Results & Data Results & Data ([facility]) Vital Signs (Past 12 Hours) Vital Signs Temp Pulse Pulse Resp BP Pulse Ox O2 Del Method 02/25/22 11:18 38.3 C H 103 H 18 134/60 90 02/25/22 09:14 Nasal Cannula 02/25/22 07:49 101 H 02/25/22 07:30 37.1 C 104 H 18 121/62 93 02/25/22 03:45 37.0 C 105 H 16 151/70 H 91 Room Air 02/25/22 02:38 83 02/25/22 01:51 Nasal Cannula O2 Flow Rate 02/25/22 11:18 02/25/22 09:14 2 02/25/22 07:49 02/25/22 07:30 02/25/22 03:45 02/25/22 02:38 02/25/22 01:51 2 Medications Administered Current Inpatient Medications Acetaminophen (Acetaminophen 325 Mg Tab) 650 mg PO Q4H PRN PRN Reason: Pain or Fever Stop: 03/26/22 06:13 Last Admin: 02/25/22 12:01 Dose: 650 mg Baclofen (Baclofen 10 Mg Tab) 10 mg PO Q8H PRN PRN Reason: back muscle spasm Stop: 03/27/22 11:29 Calcitonin Pax (Calcitonin Pax Na 200 Iu/Ac 3.7 Ml Btl) 1 sprays NA QAM S CH Stop: 03/26/22 08:59 Last Admin: 02/25/22 07:58 Dose: 1 sprays Dextrose (Dextrose 50% 50 Ml Syringe) 25 - 50 ml IV UD PRN; Protocol PRN Reason: Hypoglycemia Protocol Stop: 03/27/22 09:29 Docusate Sodium (Docusate Sodium 100 Mg Cap) 100 mg PO BID PRN PRN Reason: Constipation Stop: 03/26/22 06:13 Glucagon (Glucagon For Inj 1 Mg Vial) 1 mg IM UD PRN; Protocol PRN Reason: Hypoglycemia Protocol Stop: 03/27/22 09:29 Glucose (Glucose 40% Gel 15 Gm Tube) 15 - 30 gm PO UD PRN; Protocol PRN Reason: Hypoglycemia Protocol Stop: 03/27/22 09:29 Glucose (Glucose 10 Tab/Tube) 4 - 8 tab PO UD PRN; Protocol PRN Reason: Hypoglycemia Protocol Stop: 03/27/22 09:29 Hydromorphone HCl (Hydromorphone Inj 0.5 Mg/0.5 Ml Syr) 0.5 mg IV Q2H PRN PRN Reason: Severe Pain Stop: 03/11/22 09:20 Insulin Aspart (Insulin Aspart Per Unit) 0 units SC ACHS ON LICENSE OF [facility] Stop: 03/26/22 07:29 Last Admin: 02/25/22 12:11 Dose: 4 units Insulin Glargine (Lantus Per Unit Charge) 32 units SQ QAM ON LICENSE OF [facility] Stop: 03/26/22 08:59 Last Admin: 02/25/22 08:12 Dose: 32 units Lactobacillus Acidophilus (Advanced Probiotic 1250 Mg Capsule) 2 cap PO BID ON LICENSE OF [facility] Stop: 03/26/22 08:59 Last Admin: 02/25/22 07:56 Dose: 2 cap Lactulose (Lactulose Syrup 20 Gm/30 Ml Udc) 20 gm PO BID PRN PRN Reason: constipation Stop: 03/26/22 06:13 Levothyroxine Sodium (Levothyroxine Sodium 125 Mcg Tablet) 125 mcg PO DAILYBB ON LICENSE OF [facility] Stop: 03/26/22 06:29 Last Admin: 02/25/22 06:09 Dose: 125 mcg Methadone HCl (Methadone Hcl 10 Mg Tab) 10 mg PO TID ON LICENSE OF [facility] Stop: 03/10/22 08:59 Last Admin: 02/25/22 12:00 Dose: 10 mg Miscellaneous (Carbohydrates For Hypoglycemia ) 15 - 30 gm PO UD PRN PRN Reason: Hypoglycemia Treatment Stop: 03/27/22 09:29 Nitroglycerin (Nitroglycerin Sl 0.4 Mg/Tab Tab) 0.4 mg SL UD PRN PRN Reason: Chest Pain Stop: 03/26/22 06:13 Non-Formulary Patient's Own Med - Velphoro Chew 500 Mg 1 each PO QID ON LICENSE OF [facility] Stop: 03/26/22 16:59 Last Admin: 02/25/22 07:57 Dose: Not Given Ondansetron HCl (Ondansetron Inj 2 Mg/Ml 2 Ml Vial) 4 mg IV Q6H PRN PRN Reason: Nausea Stop: 03/26/22 06:13 Oxycodone HCl (Oxycodone Hcl Ir 5 Mg Tab (Immediate Release)) 5 mg PO Q6H PRN PRN Reason: severe pain Stop: 03/11/22 11:25 Polyethylene Glycol (Polyethylene (Miralax) 17 Gm Pack) 17 gm PO DAILY PRN PRN Reason: Constipation Stop: 03/26/22 06:13 Sevelamer HCl (Sevelamer Hcl 800 Mg Tablet) 1,600 mg PO TIDM KIRT Stop: 03/26/22 07:59 Last Admin: 02/25/22 12:01 Dose: 1,600 mg Vitamin B Complex (Vitamin B Complex Tab) 1 tab PO QAM KIRT Stop: 03/26/22 08:59 Last Admin: 02/25/22 07:56 Dose: 1 tab
--- NOTE | 2022-02-25 13:37 | XRay Report ---
XR chest 1V portable CLINICAL HISTORY: hypoxia/fever TECHNIQUE: Single frontal radiograph of the chest was obtained. Comparison: Comparison is made to chest radiograph 01/23/2022 FINDINGS: A left dual lumen catheter has been placed with the tip in the mid SVC. The cardiomediastinal silhoue tte is stable. Prominence and cephalization of the vasculature is seen. No evidence of pleural effusi on or pneumothorax. IMPRESSION: 1. Mild pulmonary edema. 2. No evidence of pneumonia. 3. Satisfactory position of left dual-lumen catheter. ACT 112: Negative or not required by law. Electronically signed by: Rm Flores M.D. 02/25/2022 1:35 PM
[2022-02-25] MEDS: HEPARIN SOD 5,000 UNIT/0.5 ML VIAL SQ SCH ×2 (15:21→21:01)
[2022-02-25] MEDS: oxyCODONE HCL IR 5 MG TAB (IMMEDIATE RELEASE) PO PRN ×2 (15:23→20:59)
[2022-02-25] MEDS ORDERED: dexAMETHasone**PF** 10 MG/ML VIAL IV STA (16:16)
[2022-02-25] MEDS: BACLOFEN 10 MG TAB PO PRN (16:57)
--- NOTE | 2022-02-25 18:08 | Radiation OncologyConsultation ---
Date of Consultation February 25, 2022 Assessment & Plan (1) Neuroendocrine tumor: Assessment: 56-year-old female with history of metastatic neuroendocrine tumor. She has been treated previously with palliative radiation to the C-spine completing on 01/31/2020 and a course of palliative radiation to the L-spine and sacrum completing on 07/04/2021. Most recently she completed a course of palliative radiation to the mid T-spine encompassing T5-T7. She was treated from 01/22/2022 through 02/05/2022 receiving a dose of 30 Gy in 10 fractions. She did apparently have some pain relief but subsequently showed evidence of progressive pain and leg weakness and decreased sensation in her lower extre mities starting this past Wednesday. Treatment Options: 1. Hospice. 2. Increasing pain medication. 3. Possible retreatment with highly focused radiation to encompass the area of progressive tumor located at T6 compressing the spinal cord. Recommendations: I have recommended a trial of steroids consisting of 10 mg IV Decadron followed by 4 mg every 6 hours. Plan: 1. I will evaluate the patient's response to Decadron as this can often predict patients like the response to radiation. 2. I will discuss the possibility of retreatment with the patient tomorrow and the possible increase risk of side effects due to the retreatment. 3. If the patient is willing to proceed with a course of reirradiation we will have her undergo CT simulation and after treatment planning initiate a course of reirradiation as soon as possible. 4. If the patient refuses I would recommend increasing pain medication and hospice. Rationale/Explanation of Treatment: The patient has just completed a course of palliative radiation encompassing this area of T6 receiving a dose of 30 GY completing on 02/05/2022. She did have an initial response with a moderate decrease in pain but unfortunately has had subsequent progressive pain with obvious cord compressive symptoms with leg weakness and sensory changes. Patient is clearly not a candidate for neurosurgical decompression nor for systemic chemotherapy. The potential for retreatment exists although this carries a significantly higher risk of side effects from the radiation. The side effects include the possibility of cord damage from the radiation itself. Unfortunately if nothing is done the patient will continue to have progressive cord damage. I will review these risks and potential treatment options with the patient tomorrow and if she is in agreement we will proceed with that simulation and treatment course as outlined above. If she does not wish to proceed with me radiation I would recommend continuing use of Decadron if the patient has responded and increasing doses of pain medication with palliative care and hospice. History of Present Illness Reason for Consultation: Persistent and progressive back pain with weakness in her lower extremity. Requesting Physician: Dr. Dennis Attending Physician: Renea Dennis, DO History of Present Illness Ms. Wilkins is a 54-year-old female who presented with a two-month history of right neck, shoulder and arm pain with occasional right arm tingling but no wea kness. 08/03/2017. Patient underwent a core needle biopsy of the spine due to abnormal radiologic findings. This was benign. Accession #: [id number]. 11/14/2019. X-ray of the C-spine showed abnormalities with recommendations for MRI. 11/22/2019. MRI of the C-spine shows lesion at C4 extending into the posterior elements and involving the spinous process measuring 2.7 x 2.2 x 2.0 cm. An additional focus of marrow signal alteration and mild expansion was noted involving the posterior elements/spinous process at C2 measuring 1.5 x 1.6 x 1.4 cm. These are highly suspicious for metastatic disease or myeloma. 11/24/2019. Patient is seen by Dr. Kline (orthopedic surgery) with a finding of a cervical lesion and complaint of neck and arm pain. She notes that this time that the pain is intermittent but at times severe with a level 10 at its worst and level 7 at best. He reviewed the scans and felt this was consistent with metastatic disease and arranged for the patient to be seen by Dr. Prado (interventional radiologist) for consideration of a biopsy. He recommended additional work-up with MRIs of the thoracic and lumbar spine and started the patient on gabapentin. 11/28/2019. CT scans of the chest abdomen and pelvis were taken without IV contrast. This showed a probable mass in the tail of the pancreas with peripheral calcifications anteriorly measuring 3.8 x 3.5 cm. This was noted on a previous examination of 07/27/2007 and appears stable. There is a 1.4 x 1.5 cm solid lesion emanating from the lateral aspect of the interpolar region of the left kidney new compared to prior exam of 07/27/2017. The lungs were unremarkable. Examination of the bones showed a lytic lesion in the posterior vertebral body of T6 and mixed blastic and lytic destruction of the vertebral sangita dy of L4. There is a heterogeneous bone density in L5. 12/05/2019. A core needle biopsy of the cyst final C4 lesion was performed. This was felt to be compatible with a neuroendocrine neoplasm. Immune assays were performed and based on the cyto-and histomorphology are consistent with a neuroendocrine neoplasm. The differential considered include a well- differentiated neuroendocrine neoplasm and a paraganglioma. This later was favored based on the tumor cell immunophenotype (lacking expression for cytokeratins). The presence of a pancreatic tail was also mention with possible benefit from tissue sampling of this lesion. Accession #: [id number]. 12/19/2019. Patient seen by Dr. Hannon (medical oncology). He noted the findings of the recent needle biopsy consistent with a neuroendocrine neoplasm with mitotic index estimated at 5-8%. He noted past medical history significant for diabetes, hypertension, CKD with high creatinine and present complaint of right neck pain radiating to the right arm with feelings of numbness and tingling. He recommended further staging work-up consisting of a PET CT scan and blood work. BUN and creatinine are high with an EGFR of 11.4. 01/08/2020. Patient to return to see Dr. Hannon (medical oncology) to review the recent PET scan and lab work. He felt the patient appears to have a low-grade disease with an estimated mitotic index of 5-8%. 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 He discussed these findings with the patient and suggested consideration of palliative radiation. He was kind enough to refer the patient to radiation oncology. He did discuss the risks of disease progression and possible cord compression. He arrange for the patient to return for follow-up to his office in 6 weeks as well as continued follow-up with nephrology. 01/11/2020. Patient seen in radiation oncology for evaluation and discussion of the role of palliative radiation. 01/03/2020. Patient undergoes staging PET CT scan with NETSPOT GA 68. 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 There were multiple lytic metastatic bony lesions located within C1, C4, T6 and L4. No other areas of abnormal uptake are noted in the chest abdomen or pelvis. 12/03/2020. MRI of the lumbar spine. Marrow replacing lesions within L4 and L5 vertebral bodies with extraosseous soft tissue component at L4 extending into the ventral epidural space causing partial effacement of the bilateral subarticular zones and mild to moderate spinal canal stenosis, possibly impinging on the existing nerve roots of L4, right more than left. Intermediate 1.0 cm lesion centered within the left aspect of T11 vertebral body. Additional marrow replacing lesions at C2, C4, T4, T6 vertebral bodies, incompletely characterized on commissioner of conciliation images. 04/16/2021. PET/CT. Slight decreased uptake and size of the right carotid sheath mass. Decreased uptake of cervical lytic osseous metastasis. Increased extent of T4 vertebral body lytic osseous metastasis. Stable size of the lumbar lytic osseous metastasis. No new metastatic lesions are identified. 07/07/2021. Patient has developed pain in the right SI area. This radiates to the groin and into the inner aspect of the right lower leg. She gives this a pain level of 7 out of 10. She was referred to the pain clinic and has had injections. These did not help with the issue. She therefore underwent PET/CT for evaluation. She is on pain medication which includes Dilaudid, methadone and gabapentin. Due to increasing pain and findings on studies she was referred from medical oncology to our office to discuss palliative radiation therapy. 01/21/2022. Patient noted the onset of mid to upper back pain a few days ago and presented to the emergency department. CT of the chest was performed. This showed an infiltrative osteolytic lesion involving the T6 vertebral body which is increased in size from a prior scan of 04/16/2021. This extends into the bilateral pedicles and facets at T6 and also within the adjacent T5 and T7 vertebral body and right posterior elements of T7. There is a pathologic burst fracture at T6 with 4 mm anterior lithiasis T6 on T7. Also noted was an infiltrative lesion at L4 and L5 with pathologic L4 burst fracture extending into the posterior elements also new from 04/16/2021. Soft tissue nodule the lesion extends into the central canal and neural foramina with associated stenosis. 01/22/2022. Patient seen as an inpatient referral for evaluation and discussion of the role of palliative radiation. Patient initiated her course of palliative radiation to the T-spine consisting of T5-T7. 01/28/2022. Thoracic spine MRI. Near complete loss of height of T6 with retropulsion, new from prior exam, compatible with previously noted pathologic burst fracture. There is moderate to severe canal stenosis. There is bilateral neuroforaminal stenosis. 02/05/2022. Status post completion of palliative radiation therapy to the T- spine. She received 3000 cGy. She completed her course of palliative radiation therapy. She tolerated this well. Her pain level was a 10. She was seen initially as an inpatient. She then completed therapy as an outpatient. At the end of therapy she was giving a pain level of 6. She did have some discomfort of her throat. She was instructed to use aloe vera juice. She will continue regular follow-up with her primary care provider and medical oncology. We asked her to return to our office in 3 and half months. 02/19/2022. Patient visited the emergency department with concern and complaint of leg weakness. It was recommended she go to the ED by her oncologist. Patient apparently left the waiting room before a bed was available and before a complete assessment could be made. 02/20/2022. Patient called to request labs from her previous visit. She was encouraged to return for any new or worsening symptom. 02/23/2022. Patient presented to the emergency room with complaint of severe back pain and inability to move her legs. She stated she was unable to stand up and notes that this is worsening. She was taking Diboll morphine but without significant pain relief. Patient was admitted for further evaluation a thoracic spine MRI was performed. This showed osteolytic destructive lesion of the T6 vertebral body with pathologic burst fracture again demonstrated. There was retropulsion/mass extension posteriorly measuring up to approximately 8 mm. This narrows the AP dimension of the thecal sac to approximately 6 mm. A large paravertebral soft tissue component associated with the T6 lesion is again noted with erosive changes involving the T5, T7 left posterior seventh rib. Severe central canal stenosis is noted at T5-T6 with at least moderate bilateral neural foraminal narrowing. The degree of central canal stenosis is likely 6 slightly progressed but normal signal of the thoracic spinal cord is noted. MRI of the lumbar spine was performed. This showed a pathologic burst fracture of L4 with retropulsion with likely severe canal and neural foraminal stenosis at this level. No definite cord edema is seen. 02/24/2022. [facility] was apparently contacted to see if they would accept the patient in referral for consideration of neurosurgical evaluation. Given the patient's status they declined feeling that they would be unable to help the patient. Patient was seen in referral by Dr. Dean. Given the patient's status and MRI findings there was no definite orthopedic role to help this patient. 02/25/2022. Radiation oncology referral made to evaluate patient for possible treatment options. This chart was completed in part utilizing [employer] Speech Voice Recognition software. Grammatical errors, random word insertions, pronoun errors and incomplete sentences are occasional consequence of this system due to software limitations, ambient noise and hardware issues. Any formal questions or concerns about the content, text or information contained within the body of this dictation should be directly addressed to the provider for clarification. Roque Abernathy MD Department of Radiation Oncology [facility] and [facility] Allergies Allergy/AdvReac Type Severity Reaction Status Date / Time Iodinated Contrast Media AdvReac Severe Patient Verified 02/24/22 02:16 has kidney failure omeprazole AdvReac Severe Increased Verified 02/24/22 02:16 her acid reflux MICHAEL Inhibitors AdvReac Unknown Intolerance Verified 02/25/22 12:29 Gabapentin AdvReac Severe Tremor Uncoded 02/25/22 12:29 Home Medications Medication Instructions Recorded Confirmed Type insulin aspart U-100 100 unit/mL 1 sliding scale dose subcut 03/15/21 02/24/22 History subcutaneous solution (Novolog USEASDIRECTD U-100 Insulin aspart) levothyroxine 125 mcg tablet 125 mcg PO DAILYBB 03/15/21 02/24/22 History docusate sodium 100 mg capsule 100 mg PO BID PRN Constipation 06/11/21 02/24/22 History (Colace) sevelamer carbonate 800 mg tablet 1,600 mg PO TIDM 07/30/21 02/24/22 History (Renvela) vitamin B complex-vitamin C-folic 1 tab PO QAM 09/11/21 02/24/22 History acid 0.8 mg tablet (Ira-Umer) hydromorphone 8 mg tablet 8 mg PO Q3H PRN Pain 02/02/22 02/24/22 History calcitonin (salmon) 200 1 spray NA QAM 02/19/22 02/24/22 History unit/actuation nasal spray insulin glargine 100 unit/mL (3 32 unit subcut QAM 02/19/22 02/24/22 History mL) subcutaneous pen (Basaglar KwikPen U-100 Insulin) methadone 10 mg tablet 10 mg PO TID 02/19/22 02/24/22 History Lactobacillus acidoph-L.bulgaricus 1 tab PO AMPM 02/24/22 02/24/22 History 1 million cell chewable tablet lactulose 10 gram/15 mL oral 15 ml PO BID PRN Constipation 02/24/22 02/24/22 History solution sucroferric oxyhydroxide 500 mg 500 mg PO QID 02/24/22 02/24/22 History chewable tablet (Velphoro) Patient History Medical History (Updated 02/25/22 @ 12:31 by Renea Dennis, ) Acid reflux Anemia Chronic narcotic dependence Diabetes Diabetic retinopathy ESRD (end stage renal disease) On dialysis esdras @ [facility] in [place] H/O vocal cord paralysis Right side Hypertension MRSA bacteremia 2017; unclear if vertebral or R diabetic foot wound source 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---only had radiation treatments Osteomyelitis of left foot chronic 2020 and 2021 Radicular pain of thoracic region Retinal hemorrhage, right eye Sepsis Thyroid cancer had sx Thyroid nodule Wound abscess left foot diabetic ulcer Surgical History Amputation of right great toe AVF (arteriovenous fistula) endovascular L; created 09/2020 H/O thyroidectomy Partial thyroidectomy History of cholecystectomy History of esophagogastroduodenoscopy (EGD) History of surgery Surgery to removed benign tumor from right vocal cord; History of surgery (~01/26/22) permcath placed--pt states her AV fistula was not working properly so permcath placed at that time by Dr. Strong @ [facility]--per pt on 02/19/22 she states her AV fistula is now working properly History of surgical procedure on eye proper using laser History of tooth extraction partial upper denture Hx of cataract surgery Bilateral Hx of tonsillectomy Previous section x2 Family History Mother , 70yo Diabetes Valvular heart disease Father , 74yo Diabetes Pneumonia Brother No problems noted. Brother No problems noted. Sister Kidney disease Dialysis patient Daughter No problems noted. 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 Physical Exam Neurologic: The patient has bilateral leg weakness with inability to abduct her right or left leg. She also has evidence of a decreased sensory in the lower extremities and abdomen extending to mid chest. Results (Rad Onc) Laboratory Results: were reviewed and pertinent findings noted in HPI Pathology Results: were reviewed and no pertinent findings Imaging Studies: were reviewed and pertinent findings noted in HPI
[2022-02-25] MEDS: dexAMETHasone 4 MG TAB PO SCH (21:02)
[2022-02-26 05:08] LABS: A calco-baum cmplx NotReported Not Detected (NotDetected); Bact fragilis Not Reported Not Detected (NotDetected); C auris Not Reported Not Detected (NotDetected); Calbicans Not Reported Not Detected (NotDetected); Candida glabrata Not Reported Not Detected (NotDetected); Candida krusei Not Reported Not Detected (NotDetected); Cneoformans/gatti Not Reported Not Detected (NotDetected); Cparapsilosis Not Reported Not Detected (NotDetected); Ctropicalis Not Reported Not Detected (NotDetected); E cloacae compx Not Reported Not Detected (NotDetected); Efaecalis Not Reported Not Detected (NotDetected); Efaecium Not Reported Not Detected (NotDetected); Enterobacterales Not Reported Not Detected (NotDetected); Escherichia coli Not Reported Not Detected (NotDetected); H influenzae Not Reported Not Detected (NotDetected); K aerogenes Not Reported Not Detected (NotDetected); Koxytoca Not Reported Not Detected (NotDetected); Kpneumoniae grp Not Reported Not Detected (NotDetected); Lmonocyt Not Reported Not Detected (NotDetected); N meningitidis Not Reported Not Detected (NotDetected); P aeruginosa Not Reported Not Detected (NotDetected); Proteus spp Not Reported Not Detected (NotDetected); Salmonella spp Not Reported Not Detected (NotDetected); Smarcescens Not Reported Not Detected (NotDetected); Staph lugdunensis Not Reported Not Detected (NotDetected); Staph spp. Not Reported DETECTED (NotDetected); Staphaureus Not Reported DETECTED (NotDetected); Staphepi Not Reported Not Detected (NotDetected); Staphylococcus spp. DETECTED (NotDetected); Stenmaltophilia Not Reported Not Detected (NotDetected); Strep agal(GrpB) Not Reported Not Detected (NotDetected); Strep pneum Not Reported Not Detected (NotDetected); Strep pyog (GrpA) Not Reported Not Detected (NotDetected); Strep spp Not Reported Not Detected (NotDetected)
[2022-02-26 05:29] LABS: mecAC+MREJ Resistant Gene MRSA DETECTED (NotDetected)
[2022-02-26] MEDS: LEVOTHYROXINE SODIUM 125 MCG TABLET PO SCH (05:35)
[2022-02-26] MEDS: HEPARIN SOD 5,000 UNIT/0.5 ML VIAL SQ SCH ×3 (05:36→20:06)
[2022-02-26] MEDS ORDERED: VANCOMYCIN CONSULT ACTIVE PRN (05:51)
[2022-02-26] MEDS ORDERED: VANCOMYCIN HCL 1,500 MG in SODIUM CHLORIDE 0.9% 500 ML IV ONE (06:30)
[2022-02-26] MEDS: LANTUS PER UNIT CHARGE SQ SCH (08:26)
[2022-02-26] MEDS: INSULIN ASPART PER UNIT SC SCH ×4 (08:26→20:00)
[2022-02-26] MEDS: METHADONE HCL 10 MG TAB PO SCH ×3 (08:26→20:06)
[2022-02-26] MEDS: dexAMETHasone 4 MG TAB PO SCH (08:27)
[2022-02-26] MEDS: ADVANCED PROBIOTIC 1250 MG CAPSULE PO SCH ×2 (08:27→20:02)
[2022-02-26] MEDS: VITAMIN B COMPLEX TAB PO SCH (08:27)
[2022-02-26] MEDS: SEVELAMER HCL 800 MG TABLET PO SCH ×3 (08:27→17:29)
[2022-02-26] MEDS: CALCITONIN SALMON NA 200 IU/AC 3.7 ML BTL SCH (08:27)
[2022-02-26] MEDS: VELPHORO 500 MG PO SCH ×4 (08:29→20:03)
[2022-02-26] MEDS ORDERED: SODIUM CHLORIDE 0.9% 1000ML 1,000 ML IV PRN (09:11)
--- NOTE | 2022-02-26 09:56 | Radiation Oncology Progress Nt ---
Date of Service February 26, 2022 Assessment & Plan (1) Neuroendocrine tumor: Plan: Assessment: 56-year-old female with history of metastatic neuroendocrine tumor. She has been treated previously with palliative radiation to the C-spine completing on 01/31/2020 and a course of palliative radiation to the L-spine and sacrum completing on 07/04/2021. Most recently she completed a course of palliative radiation to the mid T-spine encompassing T5-T7. She was treated from 01/22/2022 through 02/05/2022 receiving a dose of 30 Gy in 10 fractions. She did apparently have some pain relief but subsequently showed evidence of progressive pain and leg weakness and decreased sensation in her lower extremities starting this past Wednesday. Treatment Options: 1. Hospice. 2. Increasing pain medication. 3. Possible retreatment with highly focused radiation to encompass the area of progressive tumor located at T6 compressing the spinal cord. Recommendations: I have recommended a trial of steroids consisting of 10 mg IV Decadron followed by 4 mg every 6 hours. Rationale/Explanation of Treatment: The patient received her first dose of 10 mg IV Decadron and her first p.o. dose of 4 mg this morning. She stated that she is feeling better with the steroids. Her pain is less and she has improved movement of her legs. I spoke with her about a course of retreatment with radi ation to the area compressing her cord. I reviewed with her the potential risks as well as the potential benefits of this retreatment. The risks of course include potential cord damage especially given the short time interval between completion of her prior radiation on February 05, 2022. After discussion of the risks and benefits patient did not wish to proceed with a course of 3 radiation to the T-spine. She does understand that the benefit from steroids is going to be temporary but she wishes to wait. She would reconsider radiation potentially in the future but does not wish to proceed with radiation at this time. Plan: 1. The patient does not wish to proceed with reirradiation at this time. 2. Patient would like to continue steroids. 3. She expressed willingness to proceed with palliative care with continued pain medication and hospice. 4. We could reconsider retreatment in the future if appropriate. Admission and Anticipated Discharge Date Admission Date: February 24, 2022 Review of Systems Review of Systems: All systems were reviewed and negative except as indicated above. Results & Data ([facility]) Vital Signs (Past 12 Hours) Vital Signs Temp Pulse Pulse Resp BP Pulse Ox O2 Del Method 02/26/22 08:14 97.7 F 96 H 20 154/74 H 90 Room Air 02/26/22 07:32 78 02/26/22 03:20 97.7 F 89 18 146/72 H 93 Room Air 02/25/22 23:29 93 H 02/25/22 23:10 98.8 F 100 H 20 147/75 H 92 Room Air
[2022-02-26 10:30] LABS: Basophils # (auto) 0.01 K/uL (0-0.2); Basophils % (auto) 0.1 %; Hematocrit (blood only) 27.8 % (34.1-44.9); Hemoglobin 8.7 g/dl (12.0-16.0); Immature Granulocytes # (auto) 0.12 K/uL (0.00-0.02); Immature Granulocytes % (auto) 1.3 %; Lymphocytes # (auto) 0.46 K/uL (1.2-3.4); Mean Corpuscular Hemoglobin 32.2 pg (25.0-34.0); Mean Corpuscular Hgb Conc 31.3 g/dL (32.0-36.0); Mean Platelet Volume 9.5 fL (9.4-12.3); Monocytes # (auto) 0.39 K/uL (0.24-0.82); Monocytes % (auto) 4.2 %; Neutrophils # (auto) 8.27 K/uL (1.4-6.5); Neutrophils % (auto) 89.4 %; Platelet Count 225 K/uL (130-400); RDW Coefficient of Variation 16.9 % (11.5-14.5); RDW Standard Deviation 63.9 fL (36.4-46.3); White Blood Count 9.25 K/ul (4.8-10.8)
[2022-02-26 11:02] LABS: BUN Creatinine Ratio 13.2 (10-20); Calcium 9.1 mg/dl (8.5-10.1); Creatinine Clr Calc Pharmacy 13.9 ml/min; Est GFR (African American) 10.9 ml/min; Est GFR (Non-African American) 9.4 ml/min; Potassium 3.8 mmol/L (3.5-5.1)
--- NOTE | 2022-02-26 12:38 | Pharmacy Report ---
Pharmacy PK ABX Note - Date of Service February 26, 2022 - Assessment and Plan Assessment * Ms Wilkins is a 56 year old F receiving Vancomycin for treatment of bacteremia. * Pertinent microbiologic data includes: 4/4 blood cultures w/ GPC (MRSA per PCR) * PMH is significant for DM, chronic L foot osteomyelitis, neuroendocrine tumor w/ metastatic disease to spine, dialysis TuThSa Plan Vancomycin * Loading dose: 1500 mg IV x 1 * Pt is currently being dialyzed. Will give a small supplemental dose of vancomycin post-HD today and then further dosing will be based on levels. * Goal trough for bacteremia: 15-20 mcg/mL * Random level ordered for tomorrow morning * Vancomycin will be re-dosed when level is within (or below) goal. Pharmacy will continue to follow and will adjust dose/frequency as necessary. Thank you.
--- NOTE | 2022-02-26 12:49 | Dialysis Progress Note ---
Date of Service February 26, 2022 Assessment & Plan Admission and Anticipated Discharge Date Admission Date: February 24, 2022 Subjective S--Seen in dialysis. Patient is quite drowsy with her pain medication. not eating much. had trouble using the AV fistula so we are using dialysis catheter today. blood pressure and blood flow is fine PHYSICAL EXAMINATION: GENERAL: A middle-aged white female, who appears chronically ill. She appears very drowsy with slurring of speech. HEENT: Mucous membranes are moist. NECK: Supple. No JVD. HEENT: Mucous membrane is moist. CHEST: Bilateral decreased breath sound, but very poor inspiratory effort. CARDIOVASCULAR: S1 and S2, regular. ABDOMEN: Soft, nontender. EXTREMITIES: Show no edema in the right. There is some edema with chronic skin changes in the left foot where she also has a chronic ulcer. LABORATORY TEST: Reviewed. Hemoglobin is low at 8.6, platelet count 177. Sodium 135, potassium 3.8, BUN 50, creatinine 4.89. ASSESSMENT AND PLAN: A 56-year-old female with end-stage renal disease on hemodialysis, now admitted with severe intractable back pain related with her known pathological fracture. She is getting dialysis as per her normal schedule. She is not eating much. We will do her for 3 hours on a 3K bath and try to take about 1.5 kilos off. . Results & Data ([facility] [place]) Vital Signs (Past 12 Hours) Vital Signs Temp Pulse Pulse Pulse Resp BP BP 02/26/22 11:15 85 98/63 L 02/26/22 11:30 79 87/49 L 02/26/22 11:00 78 81/50 L 02/26/22 10:45 80 79/41 L 02/26/22 08:30 02/26/22 10:30 79 101/53 L 02/26/22 10:22 78 115/55 L 02/26/22 10:12 36.5 C 84 02/26/22 08:14 36.5 C 96 H 20 154/74 H 02/26/22 07:32 78 02/26/22 03:20 36.5 C 89 18 146/72 H Pulse Ox O2 Del Method O2 Flow Rate 02/26/22 11:15 02/26/22 11:30 02/26/22 11:00 02/26/22 10:45 02/26/22 08:30 Nasal Cannula 2 02/26/22 10:30 02/26/22 10:22 02/26/22 10:12 02/26/22 08:14 90 Room Air 02/26/22 07:32 02/26/22 03:20 93 Room Air
--- NOTE | 2022-02-26 14:04 | Hospitalist Progress Note ---
Date of Service February 26, 2022 Assessment & Plan (1) Pathologic fracture of thoracic vertebrae: (2) Neuroendocrine tumor: (3) MRSA bacteremia: Plan: 4/4 bottles positive yesterday. No fevers or chills overnight. She has a chronic osteo of the left foot and a chronic sacral decubitus ulcer as possible sources of infection. She has a fistula and a temporary dialysis catheter in place now. She was started on vancomycin. Will obtain repeat blood cultures in am and consult ID (and ortho) for recommendations. (4) Osteomyelitis of left foot: Plan: Management per podiatric specialist, may be the source of her current MRSA bacteremia. Will ask ortho to see her as well as ID for the bacteremia. 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 She has received radiation therapy to her cervical and recently to the thoracic spine. Lumbar spine/pelvic radiation was performed June 2021. Non-operative candidate at this time and not a candidate for chemotherapy options with ongoing wounds and h emodialysis. Steroids started yesterday but held in setting of infection. (6) Chronic narcotic dependence: Plan: Continues on chronic methadone. Pain management consulted and will continue with breakthrough oxycodone for pain from worsening metastatic disease above. Baclofen also being trialed. (7) ESRD (end stage renal disease): Plan: Nephrology following-patient on Wednesday dialysis. Continue per nephrology. Notably she has a history of nephrotic syndrome with last nephrology note reporting nonnephrotic range proteinuria for the first time in years. (8) Anemia: Plan: Chronic anemia of CKD-on Procrit as needed. Management per nephrology. (9) DMII (diabetes mellitus, type 2): Plan: Chronic with complications of retinopathy and polyneuropathy. A1c reflects good control. Continue insulin management. (10) DVT prophylaxis: Plan: Heparin Full code Disposition-uncertain at this time. Renea Dennis DO [facility] hospitalist Admission and Anticipated Discharge Date Admission Date: February 24, 2022 Subjective 56-year-old female with pancreatic neuroendocrine tumor with metastatic disease presents with worsening mid to upper back pain and decreased strength in lower extremities. -per rad onc and patient discussion this morning, no further XRT at this time -cannot continue with steroids for now given MRSA bacteremia -Vancomycin started overnight and no further fevers or chills -has a "chronic osteo in her left foot with open wounds and also has open sacral decubitus ulcer which is long-standing. -denies pain in either area. -echo today - updated at bedside Review of Systems Review of Systems: All systems were reviewed and negative except as indicated above. Physical Exam Physical Exam: CONSTITUTIONAL: WNWD, vitals as above,NAD EYES: normal conjunctivae, no scleral icterus ENT: external ear and nose normal, MMM NECK: trachea midline RESPIRATORY: clear to auscultation bilaterally, no crackles, rales or wheezes, normal respiratory effort CARDIOVASCULAR: regular rate and rhythm, S1 and 2 heard without murmurs, gallops or rubs, no JVD, no peripheral edema CHEST: inspection of chest was normal GASTROINTESTINAL: soft, nontender, ND, no guarding MUSCULOSKELETAL: strength 5/5 throughout with 3/5 strength in hip flexion, 5/5 hip extension, 5/5 knee extension, 3/5 knee flexion, 3/5 dorsi flexion on left foot, 5/5 plantar flexion left foot, 5/5 dorsi/plantar flexion on the right foot. SKIN: warm and dry, left foot is wrapped with Kerlix NEUROLOGIC: patellar DTRs -could not elicit these bilaterally. No facial palsy, no dysarthria. Touch, pain and proprioception normal. CN 2-12 grossly intact, no sensory deficit, normal cognition, normal speech, no tremor PSYCHIATRIC: alert cooperative and oriented to person, place and time. Euthymic mood, makes good eye contact, language grossly intact, recent and remote memory grossly intact. Results & Data Results & Data ([facility]) Vital Signs (Past 12 Hours) Vital Signs Temp Pulse Pulse Pulse Resp BP BP 02/26/22 13:00 82 87/49 L 02/26/22 13:33 36.8 C 74 97/37 L 02/26/22 12:45 80 111/83 02/26/22 12:30 88 83/43 L 02/26/22 12:00 89 82/52 L 02/26/22 11:15 85 98/63 L 02/26/22 11:30 79 87/49 L 02/26/22 11:00 78 81/50 L 02/26/22 10:45 80 79/41 L 02/26/22 08:30 02/26/22 10:30 79 101/53 L 02/26/22 10:22 78 115/55 L 02/26/22 10:12 36.5 C 84 02/26/22 08:14 36.5 C 96 H 20 154/74 H 02/26/22 07:32 78 02/26/22 03:20 36.5 C 89 18 146/72 H Pulse Ox O2 Del Method O2 Flow Rate 02/26/22 13:00 02/26/22 13:33 02/26/22 12:45 02/26/22 12:30 02/26/22 12:00 02/26/22 11:15 02/26/22 11:30 02/26/22 11:00 02/26/22 10:45 02/26/22 08:30 Nasal Cannula 2 02/26/22 10:30 02/26/22 10:22 02/26/22 10:12 02/26/22 08:14 90 Room Air 02/26/22 07:32 02/26/22 03:20 93 Room Air Laboratory Results Short CBC 02/26/22 Range/Units 10:19 WBC 9.25 (4.8-10.8) K/ul Hgb 8.7 L (12.0-16.0) g/dl Hct 27.8 L (34.1-44.9) % Plt Count 225 (130-400) K/uL BMP 02/26/22 10:19 Sodium 133 L Potassium 3.8 Chloride 100 Carbon Dioxide 24 BUN 64 H Creatinine 4.84 H* Glucose 243 H Calcium 9.1 Medications Administered Current Inpatient Medications Acetaminophen (Acetaminophen 325 Mg Tab) 650 mg PO Q4H PRN PRN Reason: Pain or Fever Stop: 03/26/22 06:13 Last Admin: 02/25/22 12:01 Dose: 650 mg Baclofen (Baclofen 10 Mg Tab) 10 mg PO Q8H PRN PRN Reason: back muscle spasm Stop: 03/27/22 11:29 Last Admin: 02/25/22 16:57 Dose: 10 mg Calcitonin Stay[place] (Calcitonin [place] Na 200 Iu/Ac 3.7 Ml Btl) 1 sprays NA QAM KIRT Stop: 03/26/22 08:59 Last Admin: 02/26/22 08:27 Dose: 1 sprays Dexamethasone (Dexamethasone 4 Mg Tab) 4 mg PO QID [facility] Stop: 03/27/22 21:59 Last Admin: 02/26/22 08:27 Dose: 4 mg Dextrose (Dextrose 50% 50 Ml Syringe) 25 - 50 ml IV UD PRN; Protocol PRN Reason: Hypoglycemia Protocol Stop: 03/27/22 09:29 Docusate Sodium (Docusate Sodium 100 Mg Cap) 100 mg PO BID PRN PRN Reason: Constipation Stop: 03/26/22 06:13 Glucagon (Glucagon For Inj 1 Mg Vial) 1 mg IM UD PRN; Protocol PRN Reason: Hypoglycemia Protocol Stop: 03/27/22 09:29 Glucose (Glucose 40% Gel 15 Gm Tube) 15 - 30 gm PO UD PRN; Protocol PRN Reason: Hypoglycemia Protocol Stop: 03/27/22 09:29 Glucose (Glucose 10 Tab/Tube) 4 - 8 tab PO UD PRN; Protocol PRN Reason: Hypoglycemia Protocol Stop: 03/27/22 09:29 Heparin Sodium (Porcine) (Heparin Sod 5,000 Unit/0.5 Ml Vial) 5,000 units SQ Q8 [facility] Stop: 03/27/22 13:59 Last Admin: 02/26/22 05:36 Dose: 5,000 units Hydromorphone HCl (Hydromorphone Inj 0.5 Mg/0.5 Ml Syr) 0.5 mg IV Q2H PRN PRN Reason: Severe Pain Stop: 03/11/22 09:20 Sodium Chloride (Nss 1000ml) 1,000 mls @ 0 mls/hr IV .Q0M PRN PRN Reason: For Hemodialysis Use ONLY Stop: 02/26/22 15:10 Vancomycin HCl 500 mg/ (Dextrose) 110 mls @ 132 mls/hr IV TODAY@1600 [facility] Stop: 02/26/22 16:49 Insulin Aspart (Insulin Aspart Per Unit) 0 units SC ACHS [facility] Stop: 03/26/22 07:29 Last Admin: 02/26/22 08:26 Dose: 6 units Insulin Glargine (Lantus Per Unit Charge) 32 units SQ QAM [facility] Stop: 03/26/22 08:59 Last Admin: 02/26/22 08:26 Dose: 32 units Lactobacillus Acidophilus (Advanced Probiotic 1250 Mg Capsule) 2 cap PO BID [facility] Stop: 03/26/22 08:59 Last Admin: 02/26/22 08:27 Dose: 2 cap Lactulose (Lactulose Syrup 20 Gm/30 Ml Udc) 20 gm PO BID PRN PRN Reason: constipation Stop: 03/26/22 06:13 Levothyroxine Sodium (Levothyroxine Sodium 125 Mcg Tablet) 125 mcg PO DAILYBB [facility] Stop: 03/26/22 06:29 Last Admin: 02/26/22 05:35 Dose: 125 mcg Methadone HCl (Methadone Hcl 10 Mg Tab) 10 mg PO TID [facility] Stop: 03/10/22 08:59 Last Admin: 02/26/22 08:26 Dose: 10 mg Miscellaneous (Carbohydrates For Hypoglycemia ) 15 - 30 gm PO UD PRN PRN Reason: Hypoglycemia Treatment Stop: 03/27/22 09:29 Miscellaneous Information (Vancomycin Consult Active) 1 each N/A UD PRN PRN Reason: Consult Stop: 03/28/22 05:50 Nitroglycerin (Nitroglycerin Sl 0.4 Mg/Tab Tab) 0.4 mg SL UD PRN PRN Reason: Chest Pain Stop: 03/26/22 06:13 Non-Formulary Patient's Own Med - Velphoro Chew 500 Mg 1 each PO QID [facility] Stop: 03/26/22 16:59 Last Admin: 02/26/22 08:29 Dose: Not Given Ondansetron HCl (Ondansetron Inj 2 Mg/Ml 2 Ml Vial) 4 mg IV Q6H PRN PRN Reason: Nausea Stop: 03/26/22 06:13 Oxycodone HCl (Oxycodone Hcl Ir 5 Mg Tab (Immediate Release)) 5 mg PO Q6H PRN PRN Reason: severe pain Stop: 03/11/22 11:25 Last Admin: 02/25/22 20:59 Dose: 5 mg Polyethylene Glycol (Polyethylene (Miralax) 17 Gm Pack) 17 gm PO DAILY PRN PRN Reason: Constipation Stop: 03/26/22 06:13 Sevelamer HCl (Sevelamer Hcl 800 Mg Tablet) 1,600 mg PO TIDM [facility] Stop: 03/26/22 07:59 Last Admin: 02/26/22 08:27 Dose: 1,600 mg Vitamin B Complex (Vitamin B Complex Tab) 1 tab PO QAM [facility] Stop: 03/26/22 08:59 Last Admin: 02/26/22 08:27 Dose: 1 tab
[2022-02-26] MEDS ORDERED: VANCOMYCIN HCL 500 MG in DEXTROSE 5% 100 ML IV SCH (16:00)
[2022-02-26] MEDS: oxyCODONE HCL IR 5 MG TAB (IMMEDIATE RELEASE) PO PRN ×2 (17:23→23:00)
--- NOTE | 2022-02-26 18:34 | Palliative Care Consultation ---
Date of Consultation February 26, 2022 Assessment & Plan (1) Palliative care encounter: Carlita talked extensively about how she feels that the steroid is helping her and she is hopeful that it will allow her to improve to the point that she is able to be somewhat independent as she had been. We discussed role of steroid to decrease inflammation related to tumor but not for actual treatment of the tumor itself. I also expressed concern that we should be cautious with expectation of full recovery of her previous function or skilled nursing relief. I asked her if she had considered what she would want if she reached a point where her cancer were no longer treatable and she told me that she wanted to do whatever was necessary for her to live as long as possible. She did not see any limitations to treatment that she would be willing to go through. We talked about concern that with bacteremia, her dialysis access may need to be removed. She does have a fistula but there has been difficulty using it recently. She told me that she would want to continue dialysis under any circumstances. I asked her if she had discussed her goals with Dr. Banuelos and she told me that she had said essentially the same thing to her. Despite her poor prognosis, she feels strongly that she would want whatever care necessary to prolong her life. She did mention that 'if the doctors told me that there was nothing else that they could do, I would have to think about it". She had talked with Dr. Abernathy about hospice and told me that she would be interested in that to help her at home. I explained that hospice care would mean total shift in focus of care to comfort only and she told me that she was not interested in that. History of Present Illness Reason for Consultation: goals of care Requesting Physician: Dr. Orourke Attending Physician: Renea Dennis DO History of Present Illness 56 yo lady with history diabetes and end stage renal disease on hemodialysis. She was diagnosed with neuroendocrine malignancy in 2019 with metastatic lesions to vertebrae. She did have radiation therapy on C spine lesions. She has had severe back pain and is followed by [facility]. She is being seen by pain management during her hospitalization for symptom relief. She has also been seen by radiation oncology after imaging showed additional vertebral mets with pathologic burst fractures and severe central canal stenosis. She presented with leg weakness. She is able to transfer to wheelchair at baseline but was unable to use her legs on admission. She has been on high dose decadron and notes some relief in pain and weakness in her legs. She was seen by Dr. Abernathy and has decided against further radiation therapy. Unfortunately, she has a chronic wound on her left foot and has been treated for osteomyelitis recently. She does have bacteremia during this visit. Allergies Allergy/AdvReac Type Severity Reaction Status Date / Time Iodinated Contrast Media AdvReac Severe Patient Verified 02/24/22 02:16 has kidney failure omeprazole AdvReac Severe Increased Verified 02/24/22 02:16 her acid reflux MICHAEL Inhibitors AdvReac Unknown Intolerance Verified 02/25/22 12:29 Gabapentin AdvReac Severe Tremor Uncoded 02/25/22 12:29 Home Medications Medication Instructions Recorded Confirmed Type insulin aspart U-100 100 unit/mL 1 sliding scale dose subcut 03/15/21 02/24/22 History subcutaneous solution (Novolog USEASDIRECTD U-100 Insulin aspart) levothyroxine 125 mcg tablet 125 mcg PO DAILYBB 03/15/21 02/24/22 History docusate sodium 100 mg capsule 100 mg PO BID PRN Constipation 06/11/21 02/24/22 History (Colace) sevelamer carbonate 800 mg tablet 1,600 mg PO TIDM 07/30/21 02/24/22 History (Renvela) vitamin B complex-vitamin C-folic 1 tab PO QAM 09/11/21 02/24/22 History acid 0.8 mg tablet (Ira-Umer) hydromorphone 8 mg tablet 8 mg PO Q3H PRN Pain 02/02/22 02/24/22 History calcitonin (salmon) 200 1 spray NA QAM 02/19/22 02/24/22 History unit/actuation nasal spray insulin glargine 100 unit/mL (3 32 unit subcut QAM 02/19/22 02/24/22 History mL) subcutaneous pen (Basaglar KwikPen U-100 Insulin) methadone 10 mg tablet 10 mg PO TID 02/19/22 02/24/22 History Lactobacillus acidoph-L.bulgaricus 1 tab PO AMPM 02/24/22 02/24/22 History 1 million cell chewable tablet lactulose 10 gram/15 mL oral 15 ml PO BID PRN Constipation 02/24/22 02/24/22 History solution sucroferric oxyhydroxide 500 mg 500 mg PO QID 02/24/22 02/24/22 History chewable tablet (Velphoro) Patient History Medical History Acid reflux Anemia Chronic narcotic dependence Diabetes Diabetic retinopathy ESRD (end stage renal disease) On dialysis esdras @ [facility] in [place] H/O vocal cord paralysis Right side Hypertension MRSA bacteremia 2017; unclear if vertebral or R diabetic foot wound source 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---only had radiation treatments Osteomyelitis of left foot chronic 2020 and 2021 Radicular pain of thoracic region Retinal hemorrhage, right eye Sepsis Thyroid cancer had sx Thyroid nodule Wound abscess left foot diabetic ulcer Surgical History Amputation of right great toe AVF (arteriovenous fistula) endovascular L; created 09/2020 H/O thyroidectomy Partial thyroidectomy History of cholecystectomy History of esophagogastroduodenoscopy (EGD) History of surgery Surgery to removed benign tumor from right vocal cord; History of surgery (~01/26/22) permcath placed--pt states her AV fistula was not working properly so permcath placed at that time by Dr. Strong @ [facility]--per pt on 02/19/22 she states her AV fistula is now working properly History of surgical procedure on eye proper using laser History of tooth extraction partial upper denture Hx of cataract surgery Bilateral Hx of tonsillectomy Previous section x2 Family History Mother , 70yo Diabetes Valvular heart disease Father , 74yo Diabetes Pneumonia Brother No problems noted. Brother No problems noted. Sister Kidney disease Dialysis patient Daughter No problems noted. Daughter Diabetes Other No family history of adverse response to anesthesia Social History Smoking Status: Never smoker Second Hand Exposure: No; Do You Dip or Chew Tobacco: No; Tobacco Cessation Education Requested by Patient: No Hx Alcohol Use: No Hx Substance Use: No Preferred Language: Emirati Communication Ability: Impaired Visual Impairment: No Limitations Hearing Ability: Normal Director Of Industrial Relations Required: No Beliefs That Will Affect Care: None marital status: Current Living Situation: Spouse Current Living Situation Comment: Home w/ current occupational status: disabled How many Children do You have: 2 Other Information That Helps Us Care for You: No Feels Safe at Home: Yes Safety Concerns: Feels Safe At This Time caffeine: No during the past year weight has: remained stable Assistive Devices: Bedside Commode, Walker and Wheelchair Review of Systems Review of Systems: ESAS Pain 2/3 Dyspnea 0/3 Drowsiness 0/3 PPS 30% Physical Exam Constitutional: + ill appearing Respiratory: normal respiratory effort; no labored breathing Skin: warm and dry Neurologic: Speech / Cognition: normal cognition Psychiatric: Orientation: oriented x 3 Results & Data ([facility]) Vital Signs (Past 12 Hours) Vital Signs Temp Pulse Pulse Pulse Resp BP BP 02/26/22 15:13 81 02/26/22 14:09 98.1 F 87 16 98/57 L 02/26/22 13:00 82 87/49 L 02/26/22 13:33 98.2 F 74 97/37 L 02/26/22 12:45 80 111/83 02/26/22 12:30 88 83/43 L 02/26/22 12:00 89 82/52 L 02/26/22 11:15 85 98/63 L 02/26/22 11:30 79 87/49 L 02/26/22 11:00 78 81/50 L 02/26/22 10:45 80 79/41 L 02/26/22 08:30 02/26/22 10:30 79 101/53 L 02/26/22 10:22 78 115/55 L 02/26/22 10:12 97.7 F 84 02/26/22 08:14 97.7 F 96 H 20 154/74 H 02/26/22 07:32 78 Pulse Ox O2 Del Method O2 Flow Rate 02/26/22 15:13 02/26/22 14:09 96 Room Air 02/26/22 13:00 02/26/22 13:33 02/26/22 12:45 02/26/22 12:30 02/26/22 12:00 02/26/22 11:15 02/26/22 11:30 02/26/22 11:00 02/26/22 10:45 02/26/22 08:30 Nasal Cannula 2 02/26/22 10:30 02/26/22 10:22 02/26/22 10:12 02/26/22 08:14 90 Room Air 02/26/22 07:32 PG Care Time/CCT Total # of Minutes Spent Total Time Spent: 55 Total Time Spent with Patient: Total time spent is greater than 50% in coordination of care (as documented) at patient's floor/unit and/or counseling patient: goals of care, hospice, prognosis Coding Level of Care Code 89758 Initial Inpt Care Lvl 2 Diagnoses Palliative care encounter Z51.5
[2022-02-26] MEDS: ACETAMINOPHEN 325 MG TAB PO PRN (21:40)
[2022-02-26] MEDS: HYDROmorphone INJ 0.5 MG/0.5 ML SYR IV PRN (23:26)
[2022-02-27] MEDS: HEPARIN SOD 5,000 UNIT/0.5 ML VIAL SQ SCH ×3 (05:39→20:11)
[2022-02-27] MEDS: oxyCODONE HCL IR 5 MG TAB (IMMEDIATE RELEASE) PO PRN ×4 (05:39→23:20)
[2022-02-27] MEDS: LEVOTHYROXINE SODIUM 125 MCG TABLET PO SCH (05:40)
[2022-02-27] MEDS: LANTUS PER UNIT CHARGE SQ SCH (08:17)
[2022-02-27] MEDS: INSULIN ASPART PER UNIT SC SCH ×4 (08:17→20:08)
[2022-02-27] MEDS: VITAMIN B COMPLEX TAB PO SCH (08:18)
[2022-02-27] MEDS: ADVANCED PROBIOTIC 1250 MG CAPSULE PO SCH ×2 (08:18→20:09)
[2022-02-27] MEDS: SEVELAMER HCL 800 MG TABLET PO SCH ×3 (08:18→17:51)
[2022-02-27] MEDS: CALCITONIN SALMON NA 200 IU/AC 3.7 ML BTL SCH (08:18)
[2022-02-27] MEDS: VELPHORO 500 MG PO SCH ×4 (08:19→20:10)
[2022-02-27] MEDS: METHADONE HCL 10 MG TAB PO SCH ×3 (08:19→20:09)
[2022-02-27] MEDS: HYDROmorphone INJ 0.5 MG/0.5 ML SYR IV PRN ×3 (08:21→20:10)
[2022-02-27 08:39] LABS: Hematocrit (blood only) 29.6 % (34.1-44.9); Hemoglobin 9.3 g/dl (12.0-16.0); Mean Corpuscular Hemoglobin 31.7 pg (25.0-34.0); Mean Corpuscular Hgb Conc 31.4 g/dL (32.0-36.0); Mean Platelet Volume 9.5 fL (9.4-12.3); Platelet Count 230 K/uL (130-400); RDW Standard Deviation 63.5 fL (36.4-46.3); Red Blood Count 2.93 M/uL (3.93-5.22); White Blood Count 9.45 K/ul (4.8-10.8)
[2022-02-27 10:00] LABS: BUN Creatinine Ratio 13.6 (10-20); Calcium 9.7 mg/dl (8.5-10.1); Est GFR (African American) 12.7 ml/min; Potassium 3.4 mmol/L (3.5-5.1)
[2022-02-27] MEDS ORDERED: VANCOMYCIN HCL 500 MG in DEXTROSE 5% 100 ML IV SCH (12:00)
--- NOTE | 2022-02-27 12:43 | Pharmacy Report ---
Pharmacy PK ABX Note - Date of Service February 27, 2022 - Assessment and Plan Assessment 02/27/22: * Random vanc level obtained this mornin.9 mcg/mL * Patient is not scheduled to receive HD today, but she does still make some urine. For this reason, small supplemental dose of Vancomycin was ordered for today, so that patient's vancomycin level does not become subtherapeutic. * Will check another random vanc level tomorrow morning prior to HD. Anticipate that patient will receive another dose tomorrow after HD has been completed. 02/26 * Ms Wilkins is a 56 year old F receiving Vancomycin for treatment of bacteremia. * Pertinent microbiologic data includes: 09/08 blood cultures w/ GPC (MRSA per PCR) * PMH is significant for DM, chronic L foot osteomyelitis, neuroendocrine tumor w/ metastatic disease to spine, dialysis TuThSa Plan Vancomycin * Supplemental dose: 500mg IV x1 * Further dosing will be based on levels. * Goal trough for bacteremia: 15-20 mcg/mL * Random level ordered for tomorrow morning * Vancomycin will be re-dosed when level is within (or below) goal. Pharmacy will continue to follow and will adjust dose/frequency as necessary. Thank you.
--- NOTE | 2022-02-27 13:28 | Orthopedic Consultation ---
Date of Consultation February 27, 2022 Assessment & Plan (1) Osteomyelitis of left foot: Patient with history of osteomyelitis of her left foot. Initial irrigation and debridement with bony removal by Dr. Pat in July of this year. Patient then transferred over to Dr. Lawson at [facility] and has continued to be treated by him including further surgery. I discussed with the patient that if we are truly looking for osteomyelitis, that we should probably consider an MRI. She states with the MRIs that she has had recently, she is not sure she would be able to take another MRI because of her back pain. At this time we will go ahead and get a left foot AP and lateral film. For completeness, the patient also had a noted external fixator plate applied by Dr. Lawson in the past which has since been removed. We will also get a left tib/fib film. If this does show signs of worsening osteomyelitis with remaining bone, an MRI might be warranted. The foot does not appear to be grossly infected at this time and I do not believe needs any type of surgical intervention. Dr. Brandt will be seeing the patient as well and can make that final decision. I would continue current wound care as designated by the wound care team. Continue IV antibiotics. We will see what the x-ray of the left foot, tib/fib shows and go from there. Patient will need to follow-up with Dr. Lawson upon discharge from the hospital to reassess any further needs that her left foot is going to need. I have discussed this plan with Dr. Dennis. History of Present Illness Reason for Consultation: Question of osteomyelitis left foot Attending Physician: Renea Dennis, DO History of Present Illness This is a 56-year-old female with past medical history significant type 2 diabetes, end-stage renal disease on hemodialysis, diabetic polyneuropathy, hyperlipidemia, history of hypothyroidism, hypertension, history of osteomyelitis of the left foot, status post treatment, follows with [facility], completed antibiotic course, anemia of chronic kidney disease, history of metastatic neuroendocrine cancer deemed not a candidate for chemother apy, status post radiation treatment presented to the emergency room with severe back pain. Patient was admitted for further care. She presented with a decline in status and ability to stand on her legs without collapse. Further imaging of her back was performed and Dr. Dean was consulted and saw her and is managing her thoracic and lumbar issues. Blood cultures were ordered and all 4 came back positive for MRSA. Patient was known to our practice from having an extensive irrigation and debridement of her left lateral foot in July of this year. Post surgery, the patient was treated with IV antibiotics and wound VAC. Patient went on to be seen by Dr. Lawson in [place] at [facility]. Patient states that through this long period of time and through surgery that Dr. Lawson has done, her left foot has improved greatly. She states that she was scheduled for an appointment to see him on this past Wednesday however was unable to do so secondary to being admitted here. No further surgeries were planned for her foot per the patient and they were in the process of soon fitting her for a boot. With a subsequent positive cultures, we have been asked to see her for her left foot and a question of osteomyelitis. Allergies Allergy/AdvReac Type Severity Reaction Status Date / Time Iodinated Contrast Media AdvReac Severe Patient Verified 02/24/22 02:16 has kidney failure omeprazole AdvReac Severe Increased Verified 02/24/22 02:16 her acid reflux MICHAEL Inhibitors AdvReac Unknown Intolerance Verified 02/25/22 12:29 Gabapentin AdvReac Severe Tremor Uncoded 02/25/22 12:29 Home Medications Medication Instructions Recorded Confirmed Type insulin aspart U-100 100 unit/mL 1 sliding scale dose subcut 03/15/21 02/24/22 History subcutaneous solution (Novolog USEASDIRECTD U-100 Insulin aspart) levothyroxine 125 mcg tablet 125 mcg PO DAILYBB 03/15/21 02/24/22 History docusate sodium 100 mg capsule 100 mg PO BID PRN Constipation 06/11/21 02/24/22 History (Colace) sevelamer carbonate 800 mg tablet 1,600 mg PO TIDM 07/30/21 02/24/22 History (Renvela) vitamin B complex-vitamin C-folic 1 tab PO QAM 09/11/21 02/24/22 History acid 0.8 mg tablet (Ira-Umer) hydromorphone 8 mg tablet 8 mg PO Q3H PRN Pain 02/02/22 02/24/22 History calcitonin (salmon) 200 1 spray NA QAM 02/19/22 02/24/22 History unit/actuation nasal spray insulin glargine 100 unit/mL (3 32 unit subcut QAM 09/15/22 09/20/22 History mL) subcutaneous pen (Basaglar KwikPen U-100 Insulin) methadone 10 mg tablet 10 mg PO TID 02/19/22 02/24/22 History Lactobacillus acidoph-L.bulgaricus 1 tab PO AMPM 02/24/22 02/24/22 History 1 million cell chewable tablet lactulose 10 gram/15 mL oral 15 ml PO BID PRN Constipation 02/24/22 02/24/22 History solution sucroferric oxyhydroxide 500 mg 500 mg PO QID 02/24/22 02/24/22 History chewable tablet (Velphoro) Patient History Medical History Acid reflux Anemia Chronic narcotic dependence Diabetes Diabetic retinopathy ESRD (end stage renal disease) On dialysis esdras @ [facility] H/O vocal cord paralysis Right side Hypertension MRSA bacteremia 2017; unclear if vertebral or R diabetic foot wound source 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---only had radiation treatments Osteomyelitis of left foot chronic 2020 and 2021 Radicular pain of thoracic region Retinal hemorrhage, right eye Sepsis Thyroid cancer had sx Thyroid nodule Wound abscess left foot diabetic ulcer Surgical History Amputation of right great toe AVF (arteriovenous fistula) endovascular L; created 09/2020 H/O thyroidectomy Partial thyroidectomy History of cholecystectomy History of esophagogastroduodenoscopy (EGD) History of surgery Surgery to removed benign tumor from right vocal cord; History of surgery (~01/26/22) permcath placed--pt states her AV fistula was not working properly so permcath placed at that time by Dr. Strong @ [facility]--per pt on 02/19/22 she states her AV fistula is now working properly History of surgical procedure on eye proper using laser History of tooth extraction partial upper denture Hx of cataract surgery Bilateral Hx of tonsillectomy Previous section x2 Family History Mother , 70yo Diabetes Valvular heart disease Father , 74yo Diabetes Pneumonia Brother No problems noted. Brother No problems noted. Sister Kidney disease Dialysis patient Daughter No problems noted. Daughter Diabetes Other No family history of adverse response to anesthesia Social History Smoking Status: Never smoker Second Hand Exposure: No; Do You Dip or Chew Tobacco: No; Tobacco Cessation Education Requested by Patient: No Hx Alcohol Use: No Hx Substance Use: No Preferred Language: Romanian Communication Ability: Impaired Visual Impairment: No Limitations Hearing Ability: Normal Audit Reviewer Required: No Beliefs That Will Affect Care: None marital status: Current Living Situation: Spouse Current Living Situation Comment: Home w/ current occupational status: disabled How many Children do You have: 2 Other Information That Helps Us Care for You: No Feels Safe at Home: Yes Safety Concerns: Feels Safe At This Time caffeine: No during the past year weight has: remained stable Assistive Devices: Bedside Commode, Walker and Wheelchair Physical Exam Physical Exam: Patient is a 56-year-old white female. Alert and oriented x3. No acute distress. Pleasant cooperative. On examination of her left foot, she has a noted dressing covering the whole of the foot at this time. This was removed to view her foot. Her left lateral wound has greatly improved since I last saw it at the beginning of the year. There is a small open area at the central portion of the wound that has what appears to be Santyl or another type of gauze placed in it. There is no purulence noted. The foot wound has been cleaned by the wound care team and the re is no slough noted at this time. The base of the wound does have a good pink color. There is no eschar. Left heel has noted pressure ulcer which has a soft blackened eschar over a good portion of the wound. There is no purulence there is no overt drainage. There is no foul odor. There is no overt erythema noted around this area. Results & Data ([facility]) Vital Signs (Past 12 Hours) Vital Signs Temp Pulse Resp BP Pulse Ox O2 Del Method 02/27/22 11:24 37.3 C 94 H 20 146/67 H 94 Room Air 02/27/22 06:26 36.8 C 89 18 129/73 95 Room Air 02/27/22 04:24 37.1 C 77 18 122/63 97 Room Air
--- NOTE | 2022-02-27 15:05 | XRay Report ---
XR tibia fibula LT 2V, XR foot LT 2V HISTORY: 56 years-old Female h/o exfix removal;r/o osteomyelitis at pin sites acute left foot pain w ith possible osteomyelitis COMPARISON: Foot radiographs 07/30/2021 TECHNIQUE: 2 views of the left tibia and fibula with 3 views of the left foot FINDINGS: TIBIA/FIBULA: Arterial calcifications. Mild diffuse soft tissue prominence. There is evidence of prior hardware rem oval involving the mid to distal tibia and fibula. Periostitis is noted about the mid and distal aspe cts of the tibia and fibula. Ill-defined cortical lucencies also noted within the anterior cortex of the mid tibial diaphysis. Articular destruction/cortical erosions of the ankle are most pronounced within the tibial plafond. FOOT: Progressively worsened osseous erosions with bony destruction throughout the foot and ankle with oss eous erosions most pronounced within the midfoot and bases of the metatarsals. Bony fragmentation wit h subluxation of the midfoot. Ill-defined lucent foci noted throughout the majority of the foot and a nkle with extensive diffuse soft tissue swelling. IMPRESSION: 1. 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 2. Periosteal elevation within the mid and distal aspects of the tibia and fibula is new from prior s tudy and may also represent changes related to osteomyelitis. 3. Diffuse soft tissue swelling. ACT 112: Negative or not required by law. The above report was generated using voice recognition software. It may contain grammatical, syntax o r spelling errors. Electronically signed by: Rajeev Roblero M.D. 02/27/2022 3:03 PM
--- NOTE | 2022-02-27 15:33 | Hospitalist Progress Note ---
Date of Service February 27, 2022 Assessment & Plan (1) Pathologic fracture of thoracic vertebrae: (2) Neuroendocrine tumor: (3) MRSA bacteremia: Plan: 4/4 bottles positive. Repeat culture pending from this morning. No fevers or chills overnight. She has a chronic osteo of the left foot and a chronic sacral decubitus ulcer as possible sources of infection. Osteo also seen in left tibia today on LLE xrays. Ortho states there is no foot/ankle provider here any longer, must consult podiatry. She has a fistula and a temporary dialysis catheter in place now. She continues on vancomycin. Will obtain repeat blood cultures in am and consult ID (and ortho) for recommendations. (4) Osteomyelitis of left foot: Plan: Management per podiatric specialist, may be the source of her current MRSA bacteremia. Per ortho, need to get podiatry involved. OSteo present in LLE on xrays today. 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 She has received radiation therapy to her cervical and recently to the thoracic spine. Lumbar spine/pelvic radiation was performed June 2021. Non-operative candidate at this time and not a candidate for chemotherapy options with ongoing wounds and hemodialysis. Steroids started initially with good response, but held in setting of infection. (6) Chronic narcotic dependence: Plan: Continues on chronic methadone. Pain management consulted and will continue with breakthrough oxycodone for pain from worsening metastatic disease above. Baclofen also being trialed. (7) ESRD (end stage renal disease): Plan: Nephrology following-patient on Wednesday dialysis. Continue per nephrology. Notably she has a history of nephrotic syndrome with last nephrology note reporting nonnephrotic range proteinuria for the first time in years. (8) Anemia: Plan: Chronic anemia of CKD-on Procrit as needed. Management per nephrology. (9) DMII (diabetes mellitus, type 2): Plan: Chronic with complications of retinopathy and polyneuropathy. A1c reflects good control. Continue insulin management. (10) DVT prophylaxis: Plan: Heparin Full code Disposition-uncertain at this time. Cannot return home without being able to walk. May be able to see a good enough repsonse with steroids, but for now these are on hold. Reneakemar Dennis DO [facility] hospitalist Admission and Anticipated Discharge Date Admission Date: February 24, 2022 Subjective 56-year-old female with pancreatic neuroendocrine tumor with metastatic disease presents with worsening mid to upper back pain and decreased strength in lower extremities. -pain returned today off the steroids -trial of baclofen discussed with patient who is in agreement -diffuse osteomyelitis of the LLE and foot seen on xrays today -patient remains on vancomycin and denies further fevers or chills, no pain in foot or leg -per ortho, podiatry must be consulted now -echo revealed no vegetations -ID recommendations pending. Review of Systems Review of Systems: All systems were reviewed and negative except as indicated above. Physical Exam Physical Exam: CONSTITUTIONAL: WNWD, vitals as above, NAD EYES: normal conjunctivae, no scleral icterus ENT: external ear and nose normal, MMM NECK: trachea midline RESPIRATORY: clear to auscultation bilaterally, no crackles, rales or wheezes, normal respiratory effort CARDIOVASCULAR: regular rate and rhythm, S1 and 2 heard without murmurs, gallops or rubs, no JVD, no peripheral edema CHEST: inspection of chest was normal GASTROINTESTINAL: soft, nontender, ND, no guarding MUSCULOSKELETAL: she is sitting sideways on the bed and appears very uncomfortable today. Did not perform strength testing today. SKIN: warm and dry, left foot is wrapped with Kerlix NEUROLOGIC: patellar DTRs -could not elicit these bilaterally. No facial palsy, no dysarthria. Touch, pain and proprioception normal. CN 2-12 grossly intact, no sensory deficit, normal cognition, normal speech, no tremor PSYCHIATRIC: alert cooperative and oriented to person, place and time. Euthymic mood, makes good eye contact, language grossly intact, recent and remote memory grossly intact. Results & Data Results & Data ([facility]) Vital Signs (Past 12 Hours) Vital Signs Temp Pulse Resp BP Pulse Ox O2 Del Method 02/27/22 08:30 Room Air 02/27/22 11:24 37.3 C 94 H 20 146/67 H 94 Room Air 02/27/22 06:26 36.8 C 89 18 129/73 95 Room Air 02/27/22 04:24 37.1 C 77 18 122/63 97 Room Air Laboratory Results Short CBC 02/27/22 Range/Units 08:26 WBC 9.45 (4.8-10.8) K/ul Hgb 9.3 L (12.0-16.0) g/dl Hct 29.6 L (34.1-44.9) % Plt Count 230 (130-400) K/uL BMP 02/27/22 08:26 Sodium 134 L Potassium 3.4 L Chloride 100 Carbon Dioxide 25 BUN 58 H Creatinine 4.26 H D Glucose 130 H Calcium 9.7 Diagnostic Findings Foot X-Ray 02/27/22 13:51 XR tibia fibula LT 2V, XR foot LT 2V HISTORY: 56 years-old Female h/o exfix removal;r/o osteomyelitis at pin sites acute left foot pain with possible osteomyelitis COMPARISON: Foot radiographs 07/30/2021 TECHNIQUE: 2 views of the left tibia and fibula with 3 views of the left foot FINDINGS: TIBIA/FIBULA: Arterial calcifications. Mild diffuse soft tissue prominence. There is evidence of prior hardware removal involving the mid to distal tibia and fibula. Periostitis is noted about the mid and distal aspects of the tibia and fibula. Ill-defined cortical lucencies also noted within the anterior cortex of the mid tibial diaphysis. Articular destruction/cortical erosions of the ankle are most pronounced within the tibial plafond. FOOT: Progressively worsened osseous erosions with bony destruction throughout the foot and ankle with osseous erosions most pronounced within the midfoot and bases of the metatarsals. Bony fragmentation with subluxation of the midfoot. Ill-defined lucent foci noted throughout the majority of the foot and ankle with extensive diffuse soft tissue swelling. IMPRESSION: 1. 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 2. Periosteal elevation within the mid and distal aspects of the tibia and fibula is new from prior study and may also represent changes related to os teomyelitis. 3. Diffuse soft tissue swelling. ACT 112: Negative or not required by law. The above report was generated using voice recognition software. It may contain grammatical, syntax or spelling errors. Electronically signed by: Rajeev Roblero M.D. 02/27/2022 3:03 PM Tibia/Fibula X-Ray 02/27/22 13:51 XR tibia fibula LT 2V, XR foot LT 2V HISTORY: 56 years-old Female h/o exfix removal;r/o osteomyelitis at pin sites acute left foot pain with possible osteomyelitis COMPARISON: Foot radiographs 07/30/2021 TECHNIQUE: 2 views of the left tibia and fibula with 3 views of the left foot FINDINGS: TIBIA/FIBULA: Arterial calcifications. Mild diffuse soft tissue prominence. There is evidence of prior hardware removal involving the mid to distal tibia and fibula. Periostitis is noted about the mid and distal aspects of the tibia and fibula. Ill-defined cortical lucencies also noted within the anterior cortex of the mid tibial diaphysis. Articular destruction/cortical erosions of the ankle are most pronounced within the tibial plafond. FOOT: Progressively worsened osseous erosions with bony destruction throughout the foot and ankle with osseous erosions most pronounced within the midfoot and bases of the metatarsals. Bony fragmentation with subluxation of the midfoot. Ill-defined lucent foci noted throughout the majority of the foot and ankle with extensive diffuse soft tissue swelling. IMPRESSION: 1. 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 2. Periosteal elevation within the mid and distal aspects of the tibia and fibula is new from prior study and may also represent changes related to osteomyelitis. 3. Diffuse soft tissue swelling. ACT 112: Negative or not required by law. The above report was generated using voice recognition software. It may contain grammatical, syntax or spelling errors. Electronically signed by: Rajeev Roblero M.D. 02/27/2022 3:03 PM
[2022-02-27] MEDS: BACLOFEN 10 MG TAB PO PRN (17:56)
[2022-02-28] MEDS: oxyCODONE HCL IR 5 MG TAB (IMMEDIATE RELEASE) PO PRN (05:37)
[2022-02-28] MEDS: LEVOTHYROXINE SODIUM 125 MCG TABLET PO SCH (05:38)
[2022-02-28] MEDS: HEPARIN SOD 5,000 UNIT/0.5 ML VIAL SQ SCH ×3 (05:39→20:11)
[2022-02-28 06:19] LABS: Hematocrit (blood only) 28.7 % (34.1-44.9); Hemoglobin 8.9 g/dl (12.0-16.0); Mean Corpuscular Hemoglobin 31.6 pg (25.0-34.0); Mean Corpuscular Volume 101.8 fL (80.0-100.0); Mean Platelet Volume 9.8 fL (9.4-12.3); Platelet Count 227 K/uL (130-400); RDW Coefficient of Variation 16.9 % (11.5-14.5); RDW Standard Deviation 63.6 fL (36.4-46.3); Red Blood Count 2.82 M/uL (3.93-5.22)
[2022-02-28 06:43] LABS: BUN Creatinine Ratio 13.8 (10-20); Calcium 9.8 mg/dl (8.5-10.1); Creatinine Clr Calc Pharmacy 13.4 ml/min; Est GFR (African American) 10.3 ml/min; Est GFR (Non-African American) 8.9 ml/min; Potassium 4.2 mmol/L (3.5-5.1)
[2022-02-28] MEDS ORDERED: SODIUM CHLORIDE 0.9% 1000ML 1,000 ML IV PRN (07:00)
[2022-02-28] MEDS: VITAMIN B COMPLEX TAB PO SCH (07:33)
[2022-02-28] MEDS: SEVELAMER HCL 800 MG TABLET PO SCH ×3 (07:33→16:38)
[2022-02-28] MEDS: CALCITONIN SALMON NA 200 IU/AC 3.7 ML BTL SCH (07:34)
[2022-02-28] MEDS: ADVANCED PROBIOTIC 1250 MG CAPSULE PO SCH ×2 (07:34→20:11)
[2022-02-28] MEDS: VELPHORO 500 MG PO SCH ×4 (07:35→20:12)
[2022-02-28] MEDS: LANTUS PER UNIT CHARGE SQ SCH (08:04)
[2022-02-28] MEDS: INSULIN ASPART PER UNIT SC SCH ×4 (08:04→20:11)
[2022-02-28] MEDS: METHADONE HCL 10 MG TAB PO SCH ×3 (08:04→20:12)
--- NOTE | 2022-02-28 08:48 | Orthopedic Progress Note ---
Date of Service February 28, 2022 Assessment & Plan (1) Osteomyelitis of left foot: Plan: I discussed the recent x-rays with the patient. I also discussed that the ability to rule out osteomyelitis in the calcaneus as well as in the distal aspect of the tibia would be best shown by an MRI. If she felt she was unable to tolerate the MRI because she was unable to lie on her back for a prolonged time, then we can continue with wound care treatments and she may follow-up with Dr. Lawson when she is able to return to [place]. We also discussed that an MRI with contrast would be the best of the imaging to determine osteomyelitis versus inflammation from the arthropathy. However, she is a dialysis patient and would not be able to have the contrast dye. After discussion, she is agreeable to attempting an MRI of the left ankle to rule out osteomyelitis of the calcaneus and distal tibia. There may be a little bit of the midfoot changes noted on the images also. We will be able to discuss the images and results with the patient once the MRI is completed. Admission and Anticipated Discharge Date Admission Date: February 24, 2022 Subjective No change as far as her left foot and lower leg. We discussed her previous external fixator of the left lower extremity which was removed approximately 1 month ago. The external fixator was in place to stabilize the midfoot. Physical Exam Constitutional: WD/WN, vitals as above + cachectic, + frail appearing and cooperative Musculoskeletal: Left ankle and foot: Stable lateral foot ulceration, posterior calcaneal ulceration, posterior lower leg small ulceration. Little to no erythema. Psychiatric: A+Ox3, euthymic affect Results & Data ([facility]) Vital Signs (Past 12 Hours) Vital Signs Temp Pulse Pulse Resp BP Pulse Ox O2 Del Method 02/28/22 08:35 36.3 C L 89 16 100/51 L 99 02/28/22 07:17 86 02/28/22 03:36 37.1 C 108 H 18 101/60 95 Room Air 02/27/22 23:31 37.1 C 112 H 20 87/58 L 96 Room Air 02/27/22 22:10 107 H 02/27/22 22:13 Room Air Diagnostic Findings Plain film of the foot and tib/fib were reviewed. Erosion of most midfoot bones with severe arthropathy changes noted at the base of the metatarsals with the hindfoot. There is also some erosion noted at the distal tibia. Postoperative changes within the midshaft to proximal tibia from previous external fixator.
[2022-02-28] MEDS: HYDROmorphone INJ 0.5 MG/0.5 ML SYR IV PRN (08:50)
--- NOTE | 2022-02-28 10:02 | Pharmacy Report ---
Pharmacy PK ABX Note - Date of Service February 28, 2022 - Assessment and Plan Assessment 02/28: * Random vanc level this AM was 20.5 mcg/mL. * Patient will receive HD today so plan on giving a small vancomycin dose post dialysis. * MRSA growing in 4/4 bottles from 02/25/22 blood cultures. Repeat blood cultures on 02/27/22 have GPCs in clusters in both aerobic bottles, likely MRSA. MRI ordered by ortho today. ID consulted as well. * Will order a random vanc level for Wednesday morning given patient does produce some urine on her own. 02/27: * Random vanc level obtained this mornin.9 mcg/mL * Patient is not scheduled to receive HD today, but she does still make some urine. For this reason, small supplemental dose of Vancomycin was ordered for today, so that patient's vancomycin level does not become subtherapeutic. * Will check another random vanc level tomorrow morning prior to HD. Anticipate that patient will receive another dose tomorrow after HD has been completed. 02/26: * Ms Wilkins is a 56 year old F receiving Vancomycin for treatment of bacteremia. * Pertinent microbiologic data includes: 4/4 blood cultures w/ GPC (MRSA per PCR) * PMH is significant for DM, chronic L foot osteomyelitis, neuroendocrine tumor w/ metastatic disease to spine, dialysis TuThSa Plan Vancomycin * Post-HD Vancomycin dose: 500 mg IV x 1 * Further dosing will be based on levels. * Goal trough for bacteremia: 15-20 mcg/mL * Random level ordered for 03/02/22 Pharmacy will continue to follow and will adjust dose/frequency as necessary. Thank you.
[2022-02-28] MEDS: ACETAMINOPHEN 325 MG TAB PO PRN (10:22)
--- NOTE | 2022-02-28 11:03 | Nephrology Progress Note ---
Date of Service February 28, 2022 Assessment & Plan (1) ESRD (end stage renal disease): Plan: Patient with ESRD on dialysis Wednesday. Patient will be dialyzed today for 3-1/2 hours to get UF of up to 1 L. AV fistula infiltrated today again as well as last time on . Regardless has a PermCath will have to be removed today after dialysis due to bacteremia. (2) MRSA bacteremia: Plan: Patient with MRSA bacteremia likely source is osteomyelitis of the foot. Her PermCath will have to be removed. We will request vascular surgery to remove PermCath after dialysis today. Admission and Anticipated Discharge Date Admission Date: February 24, 2022 Subjective Seen in follow-up for ESRD. No shortness of breath. Main complaint is weakness. Patient was seen and examined while on dialysis Review of Systems Review of Systems: All other systems were reviewed and negative except as noted in HPI Physical Exam Physical Exam: General exam: Appears comfortable, no acute distress HEENT: Pupils are equal and reactive to light Neck: No JVD, neck is supple trachea is midline Respiratory system: Clear breath sounds bilaterally. Gastrointestinal: Abdomen is soft, non distended, non tender, bowel sounds are present CVS: Regular rate and rhythm. No murmurs, rubs or gallops Musculoskeletal: No joint or muscle tenderness Extremities: Non tender, no edema, peripheral pulses are present Neuro: Oriented, no tremors, no focal neurological deficits Skin: No rashes Access: CVC. Patient also has left upper arm AV fistula with good bruit but recent infiltration Results [facility]) Vital Signs (Past 12 Hours) Vital Signs Temp Pulse Pulse Resp BP Pulse Ox O2 Del Method 02/28/22 09:08 Room Air 02/28/22 08:35 36.3 C L 89 16 100/51 L 99 02/28/22 07:17 86 02/28/22 03:36 37.1 C 108 H 18 101/60 95 Room Air 02/27/22 23:31 37.1 C 112 H 20 87/58 L 96 Room Air Laboratory Results 02/28/22 05:46 02/28/22 05:46 WBC 10.90 H RBC 2.82 L MCV 101.8 H MCH 31.6 MCHC 31.0 L RDW Std Deviation 63.6 H RDW Coeff of Padmini 16.9 H Plt Count 227 MPV 9.8
--- NOTE | 2022-02-28 11:04 | Podiatry Consultation ---
Date of Consultation February 28, 2022 Assessment & Plan (1) Osteomyelitis of left foot: (2) MRSA bacteremia: (3) Diabetes: (4) Ulcer of left midfoot: Plan - Patient was examined and evaluated. - Her notes from this admission were reviewed extensively as were her plain film imagings. - Patient was nonresponsive to questioning and her personal history is unable to be obtained while at dialysis. This does seem to be different than her baseline, especially contrasting to her note from the palliative care physician where she seemed much more alert and oriented. - Based purely on plain film imaging, she is likely to benefit most from a below-knee versus above-knee amputation, however, the MRI may reveal that the infection is more localized to the foot. She would likely need vascular intervention to heal any wound or surgical correction to the foot as well. Either way, the foot is the likely source of her bacteremia at this point. She would benefit in the short-term from an extensive debridement of these foot wounds and likely partial calcanectomy at the very least. I will work on getting this scheduled in the next day or 2. - Otherwise, she should continue with empiric antibiotics and wound care consisting of Betadine wet-to-dry dressings at this time. - Thanks for the consult. Ms. Wilkins appears to have a complicated history of osteomyelitis and diabetic foot ulcerations. We are happy to help in any way possible, though with the potential proximal extension of her symptoms, she may still require further input from either general surgery, orthopedic surgery, or vascular surgery for a more proximal amputation. History of Present Illness Reason for Consultation: Left foot osteomyelitis Requesting Physician: Renea Dennis DO Attending Physician: Renea Dennis DO History of Present Illness Ms. Wilkins is a 56-year-old female who presented to the hospital with gradual weakness to the lower extremity. She has an extensive history of metastatic neuroendocrine tumors, diabetes mellitus, and these longstanding left foot wounds. At the time of the visit, she was seen in dialysis and was nonresponsive to questioning. The dialysis nurse states that she just received Dilaudid prior to coming to dialysis and has been quiet since receiving her medication. Her notes were extensively reviewed for history. At this visit, she has had plain film imaging performed which has revealed osteomyelitis of the foot and potentially extending up the tibia and fibula. She has also had several positive blood cultures on this admission. She does appear to be chronically ill. Allergies Allergy/AdvReac Type Severity Reaction Status Date / Time Iodinated Contrast Media AdvReac Severe Patient Verified 02/24/22 02:16 has kidney failure omeprazole AdvReac Severe Increased Verified 02/24/22 02:16 her acid reflux MICHAEL Inhibitors AdvReac Unknown Intolerance Verified 02/25/22 12:29 Gabapentin AdvReac Severe Tremor Uncoded 02/25/22 12:29 Home Medications Medication Instructions Recorded Confirmed Type insulin aspart U-100 100 unit/mL 1 sliding scale dose subcut 03/15/21 02/24/22 History subcutaneous solution (Novolog USEASDIRECTD U-100 Insulin aspart) levothyroxine 125 mcg tablet 125 mcg PO DAILYBB 03/15/21 02/24/22 History docusate sodium 100 mg capsule 100 mg PO BID PRN Constipation 06/11/21 02/24/22 History (Colace) sevelamer carbonate 800 mg tablet 1,600 mg PO TIDM 07/30/21 02/24/22 History (Renvela) vitamin B complex-vitamin C-folic 1 tab PO QAM 09/11/21 02/24/22 History acid 0.8 mg tablet (Ira-Umer) hydromorphone 8 mg tablet 8 mg PO Q3H PRN Pain 02/02/22 02/24/22 History calcitonin (salmon) 200 1 spray NA QAM 02/19/22 02/24/22 History unit/actuation nasal spray insulin glargine 100 unit/mL (3 32 unit subcut QAM 02/19/22 02/24/22 History mL) subcutaneous pen (Basaglar KwikPen U-100 Insulin) methadone 10 mg tablet 10 mg PO TID 02/19/22 02/24/22 History Lactobacillus acidoph-L.bulgaricus 1 tab PO AMPM 02/24/22 02/24/22 History 1 million cell chewable tablet lactulose 10 gram/15 mL oral 15 ml PO BID PRN Constipation 02/24/22 02/24/22 History solution sucroferric oxyhydroxide 500 mg 500 mg PO QID 02/24/22 02/24/22 History chewable tablet (Velphoro) Patient History Medical History Acid reflux Anemia Chronic narcotic dependence Diabetes Diabetic retinopathy ESRD (end stage renal disease) On dialysis [id number] @ [facility] H/O vocal cord paralysis Right side Hypertension MRSA bacteremia 2017; unclear if vertebral or R diabetic foot wound source 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---only had radiation treatments Osteomyelitis of left foot chronic 2020 and 2021 Radicular pain of thoracic region Retinal hemorrhage, right eye Sepsis Thyroid cancer had sx Thyroid nodule Wound abscess left foot diabetic ulcer Surgical History Amputation of right great toe AVF (arteriovenous fistula) endovascular L; created 09/2020 H/O thyroidectomy Partial thyroidectomy History of cholecystectomy History of esophagogastroduodenoscopy (EGD) History of surgery Surgery to removed benign tumor from right vocal cord; History of surgery (~01/26/22) permcath placed--pt states her AV fistula was not working properly so permcath placed at that time by Dr. Strong @ [facility]--per pt on 02/19/22 she states her AV fistula is now working properly History of surgical procedure on eye proper using laser History of tooth extraction partial upper denture Hx of cataract surgery Bilateral Hx of tonsillectomy Previous section x2 Family History Mother , 70yo Diabetes Valvular heart disease Father , 74yo Diabetes Pneumonia Brother No problems noted. Brother No problems noted. Sister Kidney disease Dialysis patient Daughter No problems noted. Daughter Diabetes Other No family history of adverse response to anesthesia Social History Smoking Status: Never smoker Second Hand Exposure: No; Do You Dip or Chew Tobacco: No; Tobacco Cessation Education Requested by Patient: No Hx Alcohol Use: No Hx Substance Use: No Preferred Language: British Communication Ability: Impaired Visual Impairment: No Limitations Hearing Ability: Normal Agricultural Inspector Required: No Beliefs That Will Affect Care: None marital status: Current Living Situation: Spouse Current Living Situation Comment: Home w/ current occupational status: disabled How many Children do You have: 2 Other Information That Helps Us Care for You: No Feels Safe at Home: Yes Safety Concerns: Feels Safe At This Time caffeine: No during the past year weight has: remained stable Assistive Devices: Bedside Commode, Walker and Wheelchair Review of Systems Review of Systems: Unobtainable due to cognitive status and Unobtainable due t o reduced consciousness (Likely temporarily due to medications/pain management) Physical Exam Physical Exam: Patient is not alert and non-verbal at time of exam. No response to my questioning obtained. Constitutional: + ill appearing, + cachectic and + frail appearing Appears chronically contracted at the hips and knees, with significant pressure on her left heel and lateral foot Eyes: PERRL, conjunctivae normal, anicteric sclerae ENMT: external ear and nose normal, oropharynx normal Neck: normal visual inspection Respiratory: normal respiratory effort; no respiratory distress Cardiovascular: Rate/Rhythm: regular rate and regular rhythm Musculoskeletal: Spine: + sacral tenderness (Chronic Sacral wound) Extremities: + limited ROM of extremities, + abnormal strength, + chronic stasis changes, + amputation noted (Right hallux), + lower extremity abnormal to inspection Bilateral, + lower leg abnormality and + foot abnormality (Extensive left foot ulcerations noted, documented below) Left Ankle: + ankle abnormal to inspection Skin: + ulcer, + wound and + skin atrophy Neurologic: + abnormal touch/pain/proprioception and + does not move all extremities Speech / Cognition: + abnormal cognition Psychiatric: Orientation: + not alert Apperance: + disheveled; + did not appear stated age Results & Data ([facility]) Vital Signs (Past 12 Hours) Vital Signs Temp Pulse Pulse Resp BP Pulse Ox O2 Del Method 02/28/22 09:08 Room Air 02/28/22 08:35 36.3 C L 89 16 100/51 L 99 02/28/22 07:17 86 02/28/22 03:36 37.1 C 108 H 18 101/60 95 Room Air 02/27/22 23:31 37.1 C 112 H 20 87/58 L 96 Room Air Diagnostic Findings Radiographs obtained in 2 views of the left foot and 3 views of the tibia and fibula were reviewed. There is extensive evidence of both osteomyelitis and Charcot neuroarthropathy to the left midfoot. The ulceration is underlying the left lateral aspect of the heel and left lateral midfoot and does not appear consistent with osteomyelitis given the depth of the wound and the changes to the calcaneus on plain film imaging. Of note, the tibia and fibula plain film imaging does suggest prior external fixation, though throughout her notes I cannot find any evidence of this. If she has not had prior external fixation applied, then these are most consistent with a much more proximal level of osteomyelitis. This is especially true given the level of periosteal elevation along the proximal medial tibia viewed on AP tib-fib view. MRI should help elucidate these findings, though if there is evidence of osteomyelitis this proximal within the tibia, given her lack of blood flow, this would suggest she needs either a below-knee amputation versus an above-knee amputation rather than local wound care at all.
--- NOTE | 2022-02-28 14:28 | Hospitalist Progress Note ---
Date of Service February 28, 2022 Assessment & Plan (1) Pathologic fracture of thoracic vertebrae: (2) Neuroendocrine tumor: (3) MRSA bacteremia: Plan: 4/4 bottles positive. Repeat culture is still positive likely related to left lower extremity osteomyelitis. No fevers or chills overnight. Osteo seen in left tibia on LLE xrays. Ortho states there is no foot/ankle provider here any longer, must consult podiatry. MRI foot/ankle reveal fluid collections and presence of osteo. She has a fistula and a temporary dialysis catheter in place now. She continues on vancomycin. Will obtain repeat blood cultures in am and consult ID (and ortho) for recommendations. Ultimately will need to pull this perm cath from her chest, but will need to coordinate temporary dialysis catheter with vascular surgery prior to removing. No vascular coverage this weekend. (4) Osteomyelitis of left foot: Plan: Ortho and podiatry are working together to figure out the best course of action. 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 She has received radiation therapy to her cervical and recently to the thoracic spine. Lumbar spine/pelvic radiation was performed June 2021. Non-operative candidate at this time and not a candidate for chemotherapy options with ongoing wounds and hemodialysis. Steroids started initially with good response, but held in setting of infection. (6) Chronic narcotic dependence: Plan: Continues on chronic methadone. Pain management consulted and will continue with breakthrough oxycodone for pain from worsening metastatic disease above. Baclofen also being trialed. (7) ESRD (end stage renal disease): Plan: Nephrology following-patient on Wednesday dialysis. Continue per nephrology. Notably she has a history of nephrotic syndrome with last nephrology note reporting nonnephrotic range proteinuria for the first time in years. (8) Anemia: Plan: Chronic anemia of CKD-on Procrit as needed. Management per nephrology. (9) DMII (diabetes mellitus, type 2): Plan: Chronic with complications of retinopathy and polyneuropathy. A1c reflects good control. Continue insulin management. (10) DVT prophylaxis: Plan: Heparin Full code Disposition-uncertain at this time. Cannot return home without being able to w alk. May be able to see a good enough repsonse with steroids, but for now these are on hold. Renea Dennis DO [facility] Hospitalist Admission and Anticipated Discharge Date Admission Date: February 24, 2022 Subjective 56-year-old female with pancreatic neuroendocrine tumor with metastatic disease presents with worsening mid to upper back pain and decreased strength in lower extremities. MRI lower foot and HD performed today and patient is exhausted She is finally sleeping soundly and it is difficult to arouse her Defer interview today and discussed [facility] primary nurse. Review of Systems Review of Systems: Patient was sleeping Physical Exam Physical Exam: CONSTITUTIONAL: WNWD, vitals as above, NAD, sleeping soundly EYES: closed CHEST: inspection of chest was normal, normal rise and fall with no increased respiratory effort. SKIN: warm and dry, left foot is wrapped with Kerlix PSYCHIATRIC: sleeping Results & Data Results & Data ([facility]) Vital Signs (Past 12 Hours) Vital Signs Temp Pulse Pulse Pulse Resp BP BP 02/28/22 14:00 89 84/50 L 02/28/22 13:30 78 81/51 L 02/28/22 13:00 81 75/32 L 02/28/22 12:30 77 83/51 L 02/28/22 12:00 78 85/49 L 02/28/22 11:30 77 82/47 L 02/28/22 11:15 76 76/45 L 02/28/22 11:00 36.5 C 81 02/28/22 09:08 02/28/22 08:35 36.3 C L 89 16 100/51 L 02/28/22 07:17 86 02/28/22 03:36 37.1 C 108 H 18 101/60 Pulse Ox O2 Del Method 02/28/22 14:00 02/28/22 13:30 02/28/22 13:00 02/28/22 12:30 02/28/22 12:00 02/28/22 11:30 02/28/22 11:15 02/28/22 11:00 02/28/22 09:08 Room Air 02/28/22 08:35 99 02/28/22 07:17 02/28/22 03:36 95 Room Air Laboratory Results Short CBC 02/28/22 Range/Units 05:46 WBC 10.90 H (4.8-10.8) K/ul Hgb 8.9 L (12.0-16.0) g/dl Hct 28.7 L (34.1-44.9) % Plt Count 227 (130-400) K/uL BMP 02/28/22 05:46 Sodium 133 L Potassium 4.2 D Chloride 98 Carbon Dioxide 23 BUN 70 H Creatinine 5.07 H* D Glucose 177 H Calcium 9.8 Medications Administered Current Inpatient Medications Acetaminophen (Acetaminophen 325 Mg Tab) 650 mg PO Q4H PRN PRN Reason: Pain or Fever Stop: 03/26/22 06:13 Last Admin: 02/28/22 10:22 Dose: 650 mg Baclofen (Baclofen 10 Mg Tab) 10 mg PO Q8H PRN PRN Reason: back muscle spasm Stop: 03/27/22 11:29 Last Admin: 02/27/22 17:56 Dose: 10 mg Calcitonin Elkins (Calcitonin Elkins Na 200 Iu/Ac 3.7 Ml Btl) 1 sprays NA QAM [facility] Stop: 03/26/22 08:59 Last Admin: 02/28/22 07:34 Dose: 1 sprays Dexamethasone (Dexamethasone 4 Mg Tab) 4 mg PO QID KIRT Stop: 03/27/22 21:59 Last Admin: 02/26/22 08:27 Dose: 4 mg Dextrose (Dextrose 50% 50 Ml Syringe) 25 - 50 ml IV UD PRN; Protocol PRN Reason: Hypoglycemia Protocol Stop: 03/27/22 09:29 Docusate Sodium (Docusate Sodium 100 Mg Cap) 100 mg PO BID PRN PRN Reason: Constipation Stop: 03/26/22 06:13 Glucagon (Glucagon For Inj 1 Mg Vial) 1 mg IM UD PRN; Protocol PRN Reason: Hypoglycemia Protocol Stop: 03/27/22 09:29 Glucose (Glucose 40% Gel 15 Gm Tube) 15 - 30 gm PO UD PRN; Protocol PRN Reason: Hypoglycemia Protocol Stop: 03/27/22 09:29 Glucose (Glucose 10 Tab/Tube) 4 - 8 tab PO UD PRN; Protocol PRN Reason: Hypoglycemia Protocol Stop: 03/27/22 09:29 Heparin Sodium (Porcine) (Heparin Sod 5,000 Unit/0.5 Ml Vial) 5,000 units SQ Q8 K[facility] Stop: 03/27/22 13:59 Last Admin: 02/28/22 14:24 Dose: Not Given Hydromorphone HCl (Hydromorphone Inj 0.5 Mg/0.5 Ml Syr) 0.5 mg IV Q2H PRN PRN Reason: Severe Pain Stop: 03/11/22 09:20 Last Admin: 02/28/22 08:50 Dose: 0.5 mg Vancomycin HCl 500 mg/ (Dextrose) 110 mls @ 150 mls/hr IV TODAY@1600 [facility] Stop: 02/28/22 16:43 Insulin Aspart (Insulin Aspart Per Unit) 0 units SC ACHS [facility] Stop: 03/26/22 07:29 Last Admin: 02/28/22 14:24 Dose: Not Given Insulin Glargine (Lantus Per Unit Charge) 32 units SQ QAM [facility] Stop: 03/26/22 08:59 Last Admin: 02/28/22 08:04 Dose: 32 units Lactobacillus Acidophilus (Advanced Probiotic 1250 Mg Capsule) 2 cap PO BID [facility] Stop: 03/26/22 08:59 Last Admin: 02/28/22 07:34 Dose: 2 cap Lactulose (Lactulose Syrup 20 Gm/30 Ml Udc) 20 gm PO BID PRN PRN Reason: constipation Stop: 03/26/22 06:13 Levothyroxine Sodium (Levothyroxine Sodium 125 Mcg Tablet) 125 mcg PO DAILYBB [facility] Stop: 03/26/22 06:29 Last Admin: 02/28/22 05:38 Dose: 125 mcg Methadone HCl (Methadone Hcl 10 Mg Tab) 10 mg PO TID [facility] Stop: 03/10/22 08:59 Last Admin: 02/28/22 08:04 Dose: 10 mg Miscellaneous (Carbohydrates For Hypoglycemia ) 15 - 30 gm PO UD PRN PRN Reason: Hypoglycemia Treatment Stop: 03/27/22 09:29 Miscellaneous Information (Vancomycin Consult Active) 1 each N/A UD PRN PRN Reason: Consult Stop: 03/28/22 05:50 Nitroglycerin (Nitroglycerin Sl 0.4 Mg/Tab Tab) 0.4 mg SL UD PRN PRN Reason: Chest Pain Stop: 03/26/22 06:13 Non-Formulary Patient's Own Med - Velphoro Chew 500 Mg 1 each PO QID [facility] Stop: 03/26/22 16:59 Last Admin: 02/28/22 14:24 Dose: Not Given Ondansetron HCl (Ondansetron Inj 2 Mg/Ml 2 Ml Vial) 4 mg IV Q6H PRN PRN Reason: Nausea Stop: 03/26/22 06:13 Oxycodone HCl (Oxycodone Hcl Ir 5 Mg Tab (Immediate Release)) 5 mg PO Q6H PRN PRN Reason: severe pain Stop: 03/11/22 11:25 Last Admin: 02/28/22 05:37 Dose: 5 mg Polyethylene Glycol (Polyethylene (Miralax) 17 Gm Pack) 17 gm PO DAILY PRN PRN Reason: Constipation Stop: 03/26/22 06:13 Sevelamer HCl (Sevelamer Hcl 800 Mg Tablet) 1,600 mg PO TIDM [facility] Stop: 03/26/22 07:59 Last Admin: 02/28/22 14:24 Dose: Not Given Vitamin B Complex (Vitamin B Complex Tab) [facility] [place] [place] Stop: 03/26/22 08:59 Last Admin: 02/28/22 07:33 Dose: 1 tab
[2022-02-28] MEDS ORDERED: VANCOMYCIN HCL 500 MG in DEXTROSE 5% 100 ML IV SCH (16:00)
--- NOTE | 2022-02-28 18:01 | Magnetic Resonance Report ---
MR ankle LT wo con CLINICAL HISTORY: 56 years-old Female with Rule out osteomyelitis calcaneus and distal tibia. Osteom yelitis of the left foot and ankle described on comparison radiographs COMPARISON: Left foot, tibia and fibula radiographs 02/27/2022, MRI left foot 07/30/2021 TECHNIQUE: Multiplanar, multi sequence MRI of the left ankle was performed without contrast. FINDINGS:. Extensive marrow edema with osseous erosion involving the distal tibia, fibula, talus, sol caneus, midfoot and imaged bases of the metatarsals. There is destruction with this articulation of t he midfoot structures. Tibiotalar joint effusion with evidence of prior distal tibial calcaneal hardw are removal. Fluid collections within the midfoot/hindfoot junction measure up to approximately 2.5 c m. Deep tissue air is also noted within the midfoot with stents of subcutaneous and deep tissue edema . Chronic appearing tearing of the peroneus longus. Ligaments of the midfoot are suboptimally evaluated secondary to motion artifact and edema. High-grade 1.2 cm likely chronic tear involves the mid Achil les tendon. Possible tear of the distal tibialis anterior tendon. IMPRESSION: 1. Multifocal extensive marrow edema with bony destruction involving the foot and ankle are redemonst rated with articular destruction/midfoot collapse. Findings are suggestive of multifocal osteomyeliti s versus Charcot neuropathy. 2. Tibiotalar joint effusion, possibly septic. 3. There is extensive subcutaneous and deep tissue edema throughout the foot and ankle suggestive of cellulitis/myositis with several midfoot/hindfoot junction fluid collections measuring up to 2.5 cm s uggestive of abscesses. ACT 112: Negative or not required by law. The above report was generated using voice recognition software. It may contain grammatical, syntax o r spelling errors. Electronically signed by: Rajeev Roblero M.D. 02/28/2022 5:59 PM
[2022-03-01] MEDS: HYDROmorphone INJ 0.5 MG/0.5 ML SYR IV PRN ×3 (02:12→14:22)
[2022-03-01] MEDS: HEPARIN SOD 5,000 UNIT/0.5 ML VIAL SQ SCH ×3 (05:37→20:04)
[2022-03-01] MEDS: LEVOTHYROXINE SODIUM 125 MCG TABLET PO SCH (05:37)
[2022-03-01] MEDS: INSULIN ASPART PER UNIT SC SCH ×4 (08:01→20:03)
[2022-03-01] MEDS: LANTUS PER UNIT CHARGE SQ SCH (08:02)
[2022-03-01] MEDS: CALCITONIN SALMON NA 200 IU/AC 3.7 ML BTL SCH (08:14)
[2022-03-01] MEDS: METHADONE HCL 10 MG TAB PO SCH ×3 (08:14→20:04)
[2022-03-01] MEDS: SEVELAMER HCL 800 MG TABLET PO SCH ×3 (08:14→17:25)
[2022-03-01] MEDS: VITAMIN B COMPLEX TAB PO SCH (08:15)
[2022-03-01] MEDS: ADVANCED PROBIOTIC 1250 MG CAPSULE PO SCH ×2 (08:15→20:03)
[2022-03-01] MEDS: VELPHORO 500 MG PO SCH ×4 (08:16→20:04)
[2022-03-01] MEDS: oxyCODONE HCL IR 5 MG TAB (IMMEDIATE RELEASE) PO PRN (08:19)
--- NOTE | 2022-03-01 10:00 | Progress Note ---
Date of Service March 01, 2022 Assessment & Plan (1) Osteomyelitis of left foot: (2) MRSA bacteremia: (3) Diabetes: (4) Ulcer of left midfoot: Plan - Patient was examined and evaluated. - Her notes from this admission were reviewed extensively as were her plain film imagings. -We discussed at length treatment plans for her left lower extremity. Based on the significant deformity and disease state of her left ankle and foot, she would almost certainly benefit most from a below-knee versus above-knee amputation. This would largely be determined by a more proximal MRI and by her level of vascularity. -Based on her concomitant medical conditions, she will benefit most from a transfer to a tertiary care center for the surgical intervention and subsequent care. We did discuss that if she remains inpatient here, she will likely need an incision and drainage versus excisional debridement versus debridement of infected bone before her transfer. Because of this, she should likely benefit from a transfer as soon as possible. -If she remains inpatient beyond today, into tomorrow, we should again consider a surgical debridement here at [facility]. I will continue to monitor this throughout the day and schedule her for this tomorrow if needed. Admission and Anticipated Discharge Date Admission Date: February 24, 2022 Subjective Patient was seen at bedside. She is more alert and oriented than yesterday, however still quiet. She denies any significant pain to the heel and states that she is feeling mildly better, however, she is still weaker than her baseline. She denies any new complications since yesterday or new or worsening symptoms to her foot and ankle. She did have her MRI performed yesterday though has not heard about the results just yet. Review of Systems Review of Systems: All systems reviewed & are unremarkable except as noted in Subjective Physical Exam Physical Exam: Patient is alert and oriented to person place and time. MRI results were reviewed and do reveal significant changes throughout the rear foot and ankle. Of note, there are abscess formations throughout the ankle and subtalar joint. The posterior and lateral wounds do directly communicate with the calcaneus as noted on the MRI. The calcaneus is diffusely osteomyelitic. The osteomyelitis appears to extend to the distal tibia. There are multiple pin sites noted throughout the rear foot and ankle consistent with prior external fixation device. Otherwise, there is also complete collapse of the midfoot, rear foot, and ankle consistent with both chronic osteomyelitis and Charcot neuroarthropathy. Constitutional: + ill appearing, + cachectic and + frail appearing Eyes: PERRL, conjunctivae normal, anicteric sclerae ENMT: external ear and nose normal, oropharynx normal Neck: normal visual inspection Respiratory: normal respiratory effort; no respiratory distress Cardiovascular: Rate/Rhythm: regular rate and regular rhythm Musculoskeletal: Spine: + sacral tenderness (Chronic Sacral wound) Extremities: + limited ROM of extremities, + abnormal strength, + chronic stasis changes, + amputation noted (Right hallux), + lower extremity abnormal to inspection Bilateral, + lower leg abnormality and + foot abnormality (Extensive left foot ulcerations noted, documented below) Ankle: + ankle abnormal to inspection Skin: + ulcer, + wound and + skin atrophy Neurologic: + abnormal touch/pain/proprioception and + does not move all extremities Speech / Cognition: + abnormal cognition Psychiatric: Orientation: + not alert Apperance: + disheveled; + did not appear stated age Results & Data ([facility]) Vital Signs (Past 12 Hours) Vital Signs Temp Pulse Pulse Resp BP Pulse Ox O2 Del Method 02/28/22 22:14 98 H 03/01/22 00:43 Room Air 03/01/22 00:26 37.2 C 104 H 18 114/60 92 Room Air
--- NOTE | 2022-03-01 10:20 | Orthopedic Progress Note ---
Date of Service March 01, 2022 Assessment & Plan (1) Ulcer of left midfoot: Plan Assessment: Diabetic foot infection with associated osteomyelitis Plan: I discussed the case with Dr. Cook from podiatry. Given her multiple medical problems we recommend referral to a tertiary care center. It is likely she will need subspecialty input from infectious disease, vascular surgery, spine surgery etc. Admission and Anticipated Discharge Date Admission Date: February 24, 2022 Subjective Has complaints of pain in the left lower extremity, no new complaints Physical Exam Musculoskeletal: Left lower extremity shows diffuse edema. Dressing is clean and dry but does have serous drainage Results & Data ([facility]) Vital Signs (Past 12 Hours) Vital Signs Temp Pulse Resp BP Pulse Ox O2 Del Method 03/01/22 00:43 Room Air 03/01/22 00:26 37.2 C 104 H 18 114/60 92 Room Air
--- NOTE | 2022-03-01 11:34 | Nephrology Progress Note ---
Date of Service March 01, 2022 Assessment & Plan (1) ESRD (end stage renal disease): Plan: Patient with ESRD on dialysis Wednesday. Patient will be dialyzed today for 3-1/2 hours to get UF of up to [address] AV fistula infiltrated today again as well as last time on . Regardless has a PermCath will have to be removed due to bacteremia. This will likely happen tomorrow or Wednesday depending on availability of vascular. Patient may need to be dialyzed prior to removal. (2) MRSA bacteremia: Plan: Patient with MRSA bacteremia likely source is osteomyelitis of the foot. Her PermCath will have to be removed. We will request vascular surgery to remove PermCath after dialysis tomorrow or Wednesday after dialysis. Admission and Anticipated Discharge Date Admission Date: February 24, 2022 Subjective Seen for ESRD. She had dialysis yesterday. She feels about the same. Has left foot osteomyelitis Review of Systems Review of Systems: All other systems were reviewed and negative except as noted in HPI Physical Exam Physical Exam: General exam: Appears comfortable, no acute distress HEENT: Pupils are equal and reactive to light Neck: No JVD, neck is supple trachea is midline Respiratory system: Clear breath sounds bilaterally. Gastrointestinal: Abdomen is soft, non distended, non tender, bowel sounds are present CVS: Regular rate and rhythm. No murmurs, rubs or gallops Musculoskeletal: No joint or muscle tenderness Extremities: Non tender, no edema, peripheral pulses are present Neuro: Oriented, no tremors, no focal neurological deficits Skin: No rashes Access: CVC. Patient also has left upper arm AV fistula with good bruit but recent infiltration Results & Data ([facility]) Vital Signs (Past 12 Hours) Vital Signs Temp Pulse Resp BP Pulse Ox O2 Del Method 03/01/22 00:43 Room Air 03/01/22 00:26 37.2 C 104 H 18 114/60 92 Room Air Laboratory Results 02/28/22 05:46
[2022-03-01] MEDS: BACLOFEN 10 MG TAB PO PRN (14:21)
[2022-03-01] MEDS ORDERED: diazePAM 5 MG TABLET PO PRN (15:31)
[2022-03-01] MEDS ORDERED: diazePAM 5 MG TABLET PO ONE (15:31)
--- NOTE | 2022-03-01 17:29 | Discharge Summary ---
Discharge Summary Date of Service March 01, 2022 Principal Dx & Hospital Course #1 = Principal Diagnosis (1) Pathologic fracture of thoracic vertebrae: (2) Neuroendocrine tumor: (3) MRSA bacteremia: 4/4 bottles positive. Repeat culture is still positive likely related to left lower extremity osteomyelitis. No fevers or chills overnight. Osteo seen in left tibia on LLE xrays. Ortho states there is no foot/ankle provider here any longer, must consult podiatry. MRI foot/ankle reveal fluid collections and presence of osteo. She has a fistula and a temporary dialysis catheter in place now. She continues on vancomycin. Will obtain repeat blood cultures in am and consult ID (and ortho) for recommendations. Ultimately will need to pull this perm cath from her chest, but will need to coordinate temporary dialysis catheter with vascular surgery prior to removing. No vascular coverage this weekend. (4) Osteomyelitis of left foot: Ortho and podiatry are working together to figure out the best course of action. 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 She has received radiation therapy to her cervical and recently to the thoracic spine. Lumbar spine/pelvic radiation was performed June 2021. Non-operative candidate at this time and not a candidate for chemotherapy options with ongoing wounds and hemodialysis. Steroids started initially with good response, but held in setting of infection. (6) Chronic narcotic dependence: Continues on chronic methadone. Pain management consulted and will continue with breakthrough oxycodone for pain from worsening metastatic disease above. Baclofen also being trialed. (7) ESRD (end stage renal disease): Nephrology following-patient on Wednesday dialysis. Continue per nephrology. Notably she has a history of nephrotic syndrome with last nephrology note reporting nonnephrotic range proteinuria for the first time in years. (8) Anemia: Chronic anemia of CKD-on Procrit as needed. Management per nephrology. 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 A1c reflects good control. Continue insulin management. (10) DVT prophylaxis: Heparin Full code Disposition-uncertain at this time. Cannot return home without being able to walk. May be able to see a good enough repsonse with steroids, but for now griffin are on hold. Renea Dennis DO [facility] hospitalist Discharge Exam CONSTITUTIONAL: WNWD, vitals as above, NAD, sleeping soundly EYES: closed CHEST: inspection of chest was normal, normal rise and fall with no increased respiratory effort. SKIN: warm and dry, left foot is wrapped with Kerlix PSYCHIATRIC: sleeping Updated Medication List Medication Instructions Recorded Confirmed Type insulin aspart U-100 100 unit/mL 1 sliding scale dose subcut 03/15/21 02/24/22 History subcutaneous solution (Novolog USEASDIRECTD U-100 Insulin aspart) levothyroxine 125 mcg tablet 125 mcg PO DAILYBB 03/15/21 02/24/22 History docusate sodium 100 mg capsule 100 mg PO BID PRN Constipation 06/11/21 02/24/22 History (Colace) sevelamer carbonate 800 mg tablet 1,600 mg PO TIDM 07/30/21 02/24/22 History (Renvela) vitamin B complex-vitamin C-folic 1 tab PO QAM 09/11/21 02/24/22 History acid 0.8 mg tablet (Ira-Umer) hydromorphone 8 mg tablet 8 mg PO Q3H PRN Pain 02/02/22 02/24/22 History calcitonin (salmon) 200 1 spray NA QAM 02/19/22 02/24/22 History unit/actuation nasal spray insulin glargine 100 unit/mL (3 32 unit subcut QAM 02/19/22 02/24/22 History mL) subcutaneous pen (Basaglar KwikPen U-100 Insulin) methadone 10 mg tablet 10 mg PO TID 02/19/22 02/24/22 History Lactobacillus acidoph-L.bulgaricus 1 tab PO AMPM 02/24/22 02/24/22 History 1 million cell chewable tablet lactulose 10 gram/15 mL oral 15 ml PO BID PRN Constipation 02/24/22 02/24/22 History solution sucroferric oxyhydroxide 500 mg 500 mg PO QID 02/24/22 02/24/22 History chewable tablet (Velphoro) Additional Medication Comments Current Inpatient Medications Acetaminophen (Acetaminophen 325 Mg Tab) 650 mg PO Q4H PRN PRN Reason: Pain or Fever Stop: 03/26/22 06:13 Last Admin: 02/28/22 10:22 Dose: 650 mg Calcitonin [place] (Calcitonin [place] Na 200 Iu/Ac 3.7 Ml Btl) 1 sprays NA QAM [facility] Stop: 03/26/22 08:59 Last Admin: 03/01/22 08:14 Dose: 1 sprays Dextrose (Dextrose 50% 50 Ml Syringe) 25 - 50 ml IV UD PRN; Protocol PRN Reason: Hypoglycemia Protocol Stop: 03/27/22 09:29 Diazepam (Diazepam 5 Mg Tablet) 5 mg PO BID PRN PRN Reason: muscle spasm Stop: 03/31/22 15:30 Docusate Sodium (Docusate Sodium 100 Mg Cap) 100 mg PO BID PRN PRN Reason: Constipation Stop: 03/26/22 06:13 Glucagon (Glucagon For Inj 1 Mg Vial) 1 mg IM UD PRN; Protocol PRN Reason: Hypoglycemia Protocol Stop: 03/27/22 09:29 Glucose (Glucose 40% Gel 15 Gm Tube) 15 - 30 gm PO UD PRN; Protocol PRN Reason: Hypoglycemia Protocol Stop: 03/27/22 09:29 Glucose (Glucose 10 Tab/Tube) 4 - 8 tab PO UD PRN; Protocol PRN Reason: Hypoglycemia Protocol Stop: 03/27/22 09:29 Heparin Sodium (Porcine) (Heparin Sod 5,000 Unit/0.5 Ml Vial) 5,000 units SQ Q8 [facility] Stop: 03/27/22 13:59 Last Admin: 03/01/22 14:03 Dose: 5,000 units Hydromorphone HCl (Hydromorphone Inj 0.5 Mg/0.5 Ml Syr) 0.5 mg IV Q2H PRN PRN Reason: Severe Pain Stop: 03/11/22 09:20 Last Admin: 03/01/22 14:22 Dose: 0.5 mg Insulin Aspart (Insulin Aspart Per Unit) 0 units SC [facility] Stop: 03/26/22 07:29 Last Admin: 03/01/22 17:25 Dose: 6 units Insulin Glargine (Lantus Per Unit Charge) 32 units SQ [facility] Stop: 03/26/22 08:59 Last Admin: 03/01/22 08:02 Dose: 32 units Lactobacillus Acidophilus (Advanced Probiotic 1250 Mg Capsule) 2 cap PO BID [facility] Stop: 03/26/22 08:59 Last Admin: 03/01/22 08:15 Dose: 2 cap Lactulose (Lactulose Syrup 20 Gm/30 Ml Udc) 20 gm PO BID PRN PRN Reason: constipation Stop: 03/26/22 06:13 Levothyroxine Sodium (Levothyroxine Sodium 125 Mcg Tablet) 125 mcg PO DAILYBB [facility] Stop: 03/26/22 06:29 Last Admin: 03/01/22 05:37 Dose: 125 mcg Methadone HCl (Methadone Hcl 10 Mg Tab) 10 mg PO TID [facility] Stop: 03/10/22 08:59 Last Admin: 03/01/22 14:03 Dose: 10 mg Miscellaneous (Carbohydrates For Hypoglycemia ) 15 - 30 gm PO UD PRN PRN Reason: Hypoglycemia Treatment Stop: 03/27/22 09:29 Miscellaneous Information (Vancomycin Consult Active) 1 each N/A UD PRN PRN Reason: Consult Stop: 03/28/22 05:50 Nitroglycerin (Nitroglycerin Sl 0.4 Mg/Tab Tab) 0.4 mg SL UD PRN PRN Reason: Chest Pain Stop: 03/26/22 06:13 Non-Formulary Patient's Own Med - Velphoro Chew 500 Mg 1 each PO QID [facility] Stop: 03/26/22 16:59 Last Admin: 03/01/22 14:03 Dose: Not Given Ondansetron HCl (Ondansetron Inj 2 Mg/Ml 2 Ml Vial) 4 mg IV Q6H PRN PRN Reason: Nausea Stop: 03/26/22 06:13 Oxycodone HCl (Oxycodone Hcl Ir 5 Mg Tab (Immediate Release)) 5 mg PO Q6H PRN PRN Reason: severe pain Stop: 03/11/22 11:25 Last Admin: 03/01/22 08:19 Dose: 5 mg Polyethylene Glycol (Polyethylene (Miralax) 17 Gm Pack) 17 gm PO DAILY PRN PRN Reason: Constipation Stop: 03/26/22 06:13 Sevelamer HCl (Sevelamer Hcl 800 Mg Tablet) 1,600 mg PO TIDM [facility] Stop: 03/26/22 07:59 Last Admin: 03/01/22 17:25 Dose: 1,600 mg Vitamin B Complex (Vitamin B Complex Tab) 1 tab PO QAM [facility] Stop: 03/26/22 08:59 Last Admin: 03/01/22 08:15 Dose: 1 tab Hospital Stay Data Consultations 02/24/22 01:09 ED Decision to Admit Stat 02/24/22 07:15 Consult Palliative Care Routine 02/24/22 08:00 Consult Nephrology Routine Consult Orthopedic Surgery Routine Consult Pain Management Routine 02/25/22 12:07 Consult Radiation Oncology Routine 02/27/22 09:27 Consult Infectious Diseases Routine Consult Orthopedic Surgery Routine 02/27/22 18:47 Consult Podiatry Routine 02/28/22 11:27 Consult Vascular Surgery Routine Diagnostic Imagining Performed 02/23/22 21:47 MR lumbar spine wo con Stat MR thoracic spine wo con Stat 02/28/22 08:55 MR ankle LT wo con Routine Pending Results Patient Have Any Pending Studies at Discharge: No Discharge Instructions Given to Patient (Per Discharging Provider) He is follow-upYou are being transferred [facility] for further work-up and treatment of your left lower leg infection. With your primary care doctor within 1 week of discharge from this hospital. It is recommended that you also follow-up with your radiation oncologist, Dr. Roque Abernathy, regarding the role for further radiation in the future. It was a pleasure taking care of you! Please call if you have any questions or problems. You can reach a [facility] day by calling [phone]. Take care of yourself. Renea Dennis, DO [facility]
[2022-03-01] MEDS ORDERED: METHYLNALTREXONE BROMIDE 12 MG/0.6 ML VIAL SQ ONE (18:38)
--- NOTE | 2022-03-01 18:50 | Hospitalist Progress Note ---
Date of Service March 01, 2022 Assessment & Plan (1) Pathologic fracture of thoracic vertebrae: (2) Neuroendocrine tumor: (3) MRSA bacteremia: Plan: 4/4 bottles positive. Repeat cultures are still positive likely related to left lower extremity osteomyelitis. No fevers or chills overnight. Osteo seen in left tibia on LLE x-rays. Ortho states there is no foot/ankle provider here any longer, must consult podiatry. MRI foot/ankle reveal fluid collections and presence of osteo. She has a fistula and a permanent dialysis catheter in place now. She continues on vancomycin. Will obtain repeat blood cultures in am and consult ID (and ortho) for recommendations. Ultimately will need to pull this perm cath from her chest, but will need to coordinate temporary dialysis catheter with vascular surgery prior to removing. No vascular coverage this weekend. (4) Osteomyelitis of left foot: Plan: Ortho and podiatry are working together to figure out the best course of action. 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 She has received radiation therapy to her cervical and recently to the thoracic spine. Lumbar spine/pelvic radiation was performed June 2021. Non-operative candidate at this time and not a candidate for chemotherapy options with ongoing wounds and hemodialysis. Steroids started initially with good response, but held in setting of infection. (6) Chronic narcotic dependence: Plan: Continues on chronic methadone. Pain management consulted and will continue with breakthrough oxycodone for pain from worsening metastatic disease above. Baclofen also being trialed. (7) ESRD (end stage renal disease): Plan: Nephrology following-patient on Wednesday dialysis. Continue per nephrology. Notably she has a history of nephrotic syndrome with last nephrology note reporting nonnephrotic range proteinuria for the first time in years. (8) Anemia: Plan: Chronic anemia of CKD-on Procrit as needed. Management per nephrology. (9) DMII (diabetes mellitus, type 2): Plan: Chronic with complications of retinopathy and polyneuropathy. A1c reflects good control. Continue insulin management. (10) Constipation due to opioid therapy: Plan: enema today was unsucessful. Will give trial of Relistor now. (11) DVT prophylaxis: Plan: Heparin Full code Disposition-uncertain at this time. Cannot return home without being able to walk. May be able to see a good enough repsonse with steroids, but for now these are on hold. Renea Dennis DO [facility] Admission and Anticipated Discharge Date Admission Date: February 24, 2022 Subjective 56-year-old female with pancreatic neuroendocrine tumor with metastatic disease presents with worsening mid to upper back pain and decreased strength in lower extremities. persistent pain reported in her upper mid back. + Constipated Baclofen and Percocet are not helpful. She continues on methadone 3 times daily per home regimen. Discussed with orthopedics and podiatry that BKA would likely be indicated and this cannot be performed at this institution Coordinated care with transfer center and with patient and that she would be going to [facility] for additional orthopedic work-up/trt I also included to the triage officer at [place] that she is having some difficulties with her AV fistula and may need vascular support when there. Review of Systems Review of Systems: All systems were reviewed and negative except as indicated above. Physical Exam Physical Exam: CONSTITUTIONAL: WNWD, vitals as above, NAD EYES: normal conjunctivae, no scleral icterus ENT: external ear and nose normal, MMM NECK: trachea midline RESPIRATORY: clear to auscultation bilaterally, no crackles, rales or wheezes, normal respiratory effort CARDIOVASCULAR: regular rate and rhythm, S1 and 2 heard without murmurs, gallops or rubs, no JVD, no peripheral edema CHEST: inspection of chest was normal GASTROINTESTINAL: soft, nontender, ND, no guarding MUSCULOSKELETAL: she is laying on her side in the bed with pain in her back with minimal movement. SKIN: warm and dry, left foot is wrapped with Kerlix some drainage that is bloody is coming through. NEUROLOGIC: CN 2-12 grossly intact, no sensory deficit, normal cognition, normal speech, no tremor PSYCHIATRIC: alert cooperative and oriented to person, place and time. Euthymic mood, makes good eye contact, language grossly intact, recent and remote memory grossly intact. Results & Data Results & Data ([facility]) Vital Signs (Past 12 Hours) Vital Signs Temp Pulse Resp BP Pulse Ox O2 Del Method 03/01/22 14:56 36.9 C 93 H 20 103/66 94 Room Air Medications Administered Current Inpatient Medications Acetaminophen (Acetaminophen 325 Mg Tab) 650 mg PO Q4H PRN PRN Reason: Pain or Fever Stop: 03/26/22 06:13 Last Admin: 02/28/22 10:22 Dose: 650 mg Calcitonin [place] (Calcitonin [place] Na 200 Iu/Ac 3.7 Ml Btl) 1 sprays NA QAM [facility] Stop: 03/26/22 08:59 Last Admin: 03/01/22 08:14 Dose: 1 sprays Dextrose (Dextrose 50% 50 Ml Syringe) 25 - 50 ml IV UD PRN; Protocol PRN Reason: Hypoglycemia Protocol Stop: 03/27/22 09:29 Diazepam (Diazepam 5 Mg Tablet) 5 mg PO BID PRN PRN Reason: muscle spasm Stop: 03/31/22 15:30 Docusate Sodium (Docusate Sodium 100 Mg Cap) 100 mg PO BID PRN PRN Reason: Constipation Stop: 03/26/22 06:13 Glucagon (Glucagon For Inj 1 Mg Vial) 1 mg IM UD PRN; Protocol PRN Reason: Hypoglycemia Protocol Stop: 03/27/22 09:29 Glucose (Glucose 40% Gel 15 Gm Tube) 15 - 30 gm PO UD PRN; Protocol PRN Reason: Hypoglycemia Protocol Stop: 03/27/22 09:29 Glucose (Glucose 10 Tab/Tube) 4 - 8 tab PO UD PRN; Protocol PRN Reason: Hypoglycemia Protocol Stop: 03/27/22 09:29 Heparin Sodium (Porcine) (Heparin Sod 5,000 Unit/0.5 Ml Vial) 5,000 units SQ Q8 [facility] Stop: 03/27/22 13:59 Last Admin: 03/01/22 14:03 Dose: 5,000 units Hydromorphone HCl (Hydromorphone Inj 0.5 Mg/0.5 Ml Syr) 0.5 mg IV Q2H PRN PRN Reason: Severe Pain Stop: 03/11/22 09:20 Last Admin: 03/01/22 14:22 Dose: 0.5 mg Insulin Aspart (Insulin Aspart Per Unit) 0 units SC ACHS [facility] Stop: 03/26/22 07:29 Last Admin: 03/01/22 17:25 Dose: 6 units Insulin Glargine (Lantus Per Unit Charge) 32 units SQ QAM [facility] Stop: 03/26/22 08:59 Last Admin: 03/01/22 08:02 Dose: 32 units Lactobacillus Acidophilus (Advanced Probiotic 1250 Mg Capsule) 2 cap PO BID [facility] Stop: 03/26/22 08:59 Last Admin: 03/01/22 08:15 Dose: 2 cap Lactulose (Lactulose Syrup 20 Gm/30 Ml Udc) 20 gm PO BID PRN PRN Reason: constipation Stop: 03/26/22 06:13 Levothyroxine Sodium (Levothyroxine Sodium 125 Mcg Tablet) 125 mcg PO DAILYBB [facility] Stop: 03/26/22 06:29 Last Admin: 03/01/22 05:37 Dose: 125 mcg Methadone HCl (Methadone Hcl 10 Mg Tab) 10 mg PO TID [facility] Stop: 03/10/22 08:59 Last Admin: 03/01/22 14:03 Dose: 10 mg Methylnaltrexone [place] (Methylnaltrexone [place] 12 Mg/0.6 Ml Vial) 8 mg SQ ONE ONE Stop: 03/01/22 18:39 Miscellaneous (Carbohydrates For Hypoglycemia ) 15 - 30 gm PO UD PRN PRN Reason: Hypoglycemia Treatment Stop: 03/27/22 09:29 Miscellaneous Information (Vancomycin Consult Active) 1 each N/A UD PRN PRN Reason: Consult Stop: 03/28/22 05:50 Nitroglycerin (Nitroglycerin Sl 0.4 Mg/Tab Tab) 0.4 mg SL UD PRN PRN Reason: Chest Pain Stop: 03/26/22 06:13 Non-Formulary Patient's Own Med - Velphoro Chew 500 Mg 1 each PO QID [facility] Stop: 03/26/22 16:59 Last Admin: 03/01/22 14:03 Dose: Not Given Ondansetron HCl (Ondansetron Inj 2 Mg/Ml 2 Ml Vial) 4 mg IV Q6H PRN PRN Reason: Nausea Stop: 03/26/22 06:13 Oxycodone HCl (Oxycodone Hcl Ir 5 Mg Tab (Immediate Release)) 5 mg PO Q6H PRN PRN Reason: severe pain Stop: 03/11/22 11:25 Last Admin: 03/01/22 08:19 Dose: 5 mg Polyethylene Glycol (Polyethylene (Miralax) 17 Gm Pack) 17 gm PO DAILY PRN PRN Reason: Constipation Stop: 03/26/22 06:13 Sevelamer HCl (Sevelamer Hcl 800 Mg Tablet) 1,600 mg PO TIDM [facility] Stop: 03/26/22 07:59 Last Admin: 03/01/22 17:25 Dose: 1,600 mg Vitamin B Complex (Vitamin B Complex Tab) 1 tab PO QAM [facility] Stop: 03/26/22 08:59 Last Admin: 03/01/22 08:15 Dose: 1 tab
[2022-03-02] MEDS: ACETAMINOPHEN 325 MG TAB PO PRN (05:42)
[2022-03-02] MEDS: HEPARIN SOD 5,000 UNIT/0.5 ML VIAL SQ SCH (05:42)
[2022-03-02] MEDS: LEVOTHYROXINE SODIUM 125 MCG TABLET PO SCH (05:42)
[2022-03-02 07:40] LABS: Hematocrit (blood only) 22.8 % (34.1-44.9); Mean Corpuscular Hemoglobin 31.8 pg (25.0-34.0); Mean Corpuscular Hgb Conc 30.7 g/dL (32.0-36.0); Mean Corpuscular Volume 103.6 fL (80.0-100.0); Mean Platelet Volume 9.9 fL (9.4-12.3); Platelet Count 183 K/uL (130-400); RDW Coefficient of Variation 16.8 % (11.5-14.5); RDW Standard Deviation 64.3 fL (36.4-46.3)
[2022-03-02] MEDS: INSULIN ASPART PER UNIT SC SCH ×4 (08:15→23:34)
[2022-03-02 08:18] LABS: BUN Creatinine Ratio 12.5 (10-20); Calcium 9.1 mg/dl (8.5-10.1); Creatinine Clr Calc Pharmacy 15.7 ml/min; Est GFR (African American) 12.5 ml/min; Est GFR (Non-African American) 10.8 ml/min; Potassium 3.3 mmol/L (3.5-5.1)
[2022-03-02] MEDS: VITAMIN B COMPLEX TAB PO SCH ×2 (08:44→11:01)
[2022-03-02] MEDS: ADVANCED PROBIOTIC 1250 MG CAPSULE PO SCH ×3 (08:44→23:41)
[2022-03-02] MEDS: SEVELAMER HCL 800 MG TABLET PO SCH ×4 (08:45→17:16)
[2022-03-02] MEDS: CALCITONIN SALMON NA 200 IU/AC 3.7 ML BTL SCH ×2 (08:46→11:00)
[2022-03-02] MEDS: METHADONE HCL 10 MG TAB PO SCH ×2 (08:47→11:01)
[2022-03-02] MEDS: VELPHORO 500 MG PO SCH ×3 (08:47→17:17)
[2022-03-02] MEDS: LANTUS PER UNIT CHARGE SQ SCH (08:54)
--- NOTE | 2022-03-02 09:19 | Pharmacy Report ---
Pharmacy PK ABX Note - Date of Service March 02, 2022 - Assessment and Plan Assessment 03/02: * Random vanc leve this AM was 16.4 mcg/mL. * No HD scheduled for today. Next session tomorrow. * Will give a small vanco dose today given persistent bacteremia to make sure trough does not drop below 15 mcg/mL. * Lab check if true vanc RUTHY = 2 on this MRSA. 02/28: * Random vanc level this AM was 20.5 mcg/mL. * Patient will receive HD today so plan on giving a small vancomycin dose post dialysis. * MRSA growing in 4/4 bottles from 02/25/22 blood cultures. Repeat blood cultures on 02/27/22 have GPCs in clusters in both aerobic bottles, likely MRSA. MRI ordered by ortho today. ID consulted as well. * Will order a random vanc level for Wednesday morning given patient does produce some urine on her own. 02/27: * Random vanc level obtained this mornin.9 mcg/mL * Patient is not scheduled to receive HD today, but she does still make some urine. For this reason, small supplemental dose of Vancomycin was ordered for today, so that patient's vancomycin level does not become subtherapeutic. * Will check another random vanc level tomorrow morning prior to HD. Anticipate that patient will receive another dose tomorrow after HD has been completed. 02/26: * Ms Wilkins is a 56 year old F receiving Vancomycin for treatment of bacteremia. 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 * Goal trough for bacteremia: 15-20 mcg/mL * Random level ordered for 03/03/22 Pharmacy will continue to follow and will adjust dose/frequency as necessary. Thank you.
[2022-03-02] MEDS ORDERED: VANCOMYCIN HCL 500 MG in DEXTROSE 5% 100 ML IV SCH (10:00)
[2022-03-02] MEDS ORDERED: POTASSIUM ACETATE/NSS 10 MEQ/105 ML BAG IV STA (11:00)
[2022-03-02] MEDS: POTASSIUM CHLORIDE / WTR 10 MEQ/100 ML PLCT IV SCH ×2 (11:50→14:13)
[2022-03-02 11:51] LABS: Base Excess ABG 5.3 mEq/L (-9-1.8); HCO3 ABG 31 mmol/L (19-24); Oxygen Saturation ABG 77.5 % (90-95); PCO2 ABG 46 mmHg (35-46); PO2 ABG 44 mmHg (80-95); pH ABG 7.43 (7.35-7.45)
[2022-03-02 11:52] LABS: Allen Test Pos (Pos)
[2022-03-02 11:55] LABS: Hematocrit (blood only) 23.2 % (34.1-44.9); Hemoglobin 7.1 g/dl (12.0-16.0); Mean Corpuscular Hemoglobin 31.6 pg (25.0-34.0); Mean Corpuscular Hgb Conc 30.6 g/dL (32.0-36.0); Mean Corpuscular Volume 103.1 fL (80.0-100.0); Mean Platelet Volume 9.7 fL (9.4-12.3); Platelet Count 197 K/uL (130-400); RDW Coefficient of Variation 17.1 % (11.5-14.5); RDW Standard Deviation 64.7 fL (36.4-46.3); Red Blood Count 2.25 M/uL (3.93-5.22); White Blood Count 7.89 K/ul (4.8-10.8)
[2022-03-02 13:13] LABS: Reticulocytes # 0.05 10^6/uL (0.02-0.10)
[2022-03-02 13:19] LABS: INR 1.1 (0.9-1.1); Prothrombin Time 11.4 Seconds (9.0-12.0)
[2022-03-02 13:46] LABS: Albumin Level 2.2 gm/dl (3.4-5.0); Bilirubin Direct 0.3 mg/dl (0-0.2); Bilirubin,Total 0.4 mg/dl (0.2-1.0); Total Protein 7.2 gm/dl (6.0-8.3)
--- NOTE | 2022-03-02 15:38 | CT Scan Report ---
CT SCAN OF THE BRAIN WITHOUT IV CONTRAST CLINICAL HISTORY: Change in mental status. COMPARISON STUDY: CT of the brain dated 04/04/2021. TECHNIQUE: Unenhanced axial CT scan of the brain is performed from the vertex to the skull base. A do se lowering technique was utilized adhering to the principles of ALARA. CT DOSE: 614.27 mGy.cm FINDINGS: Brain parenchyma: There is age-related involutional change noting mild subcortical and periventricula r microangiopathic disease. There is no hemorrhage, mass effect, or evidence of acute territorial isc hemia by CT criteria. Rosa-white matter differentiation is preserved. No extra-axial fluid collection is seen. Ventricles, sulci, cisterns: Prominent secondary to involutional change. Intracranial vasculature: There is atherosclerotic calcification of the cavernous carotid arteries. Calvarium: Unremarkable. Sinuses and mastoids: Trace mucosal thickening is noted in the right maxillary antrum. The remaining paranasal sinuses are clear. The mastoid air cells are well pneumatized. Orbits: The bony orbits are grossly intact. There are bilateral ocular lens implants. IMPRESSION: There is no hemorrhage, mass effect, or evidence of acute territorial ischemia by CT sarah acosta. ACT 112: Negative or not required by law. Electronically signed by: Russell Fernandez M.D. 03/02/2022 3:37 PM
--- NOTE | 2022-03-02 16:30 | Hospitalist Progress Note ---
Date of Service March 02, 2022 Assessment & Plan (1) Pathologic fracture of thoracic vertebrae: Plan: Pain is not well managed without steroids. Also needed to temporarily suspend her narcotic therapy today 2/2 lethargy. Restart this tonight and continue to address her constipation issues with glycerin supp, Relistor repeat injection now and daily scheduled Miralax. (2) Neuroendocrine tumor: Plan: chronic, with metastasis. Not a candidate for chemotherapy or hormonal therapy options at this time. (3) MRSA bacteremia: Plan: 4/4 bottles positive. Repeat cultures are still positive likely related to left lower extremity osteomyelitis. No fevers or chills overnight. Osteo seen in left tibia on LLE x-rays. MRI foot/ankle reveal fluid collections and presence of osteo. She has a fistula and a permanent dialysis catheter in place now. She continues on vancomycin. Ultimately will need to pull this perm cath from her chest, but will need to coordinate temporary dialysis catheter with vascular surgery prior to removing. Will likely be able to get this at [facility] Cont abx. (4) Osteomyelitis of left foot: Plan: Tertiary care recommended. Pending transfer [place] [facility] [place] soon as bed is available. 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 She has received radiation therapy to her cervical and recently to the thoracic spine. Lumbar spine/pelvic radiation was performed June 2021. Non-operative candidate at this time and not a candidate for chemotherapy options with ongoing wounds and hemodialysis. Steroids started initially with good response, but held in setting of infection. (6) Chronic narcotic dependence: Plan: Continues on chronic methadone. Pain management consulted and will continue with breakthrough oxycodone for pain from worsening metastatic disease above. Baclofen atrial was unsuccessful. (7) ESRD (end stage renal disease): Plan: Nephrology following-patient on Wednesday dialysis. Continue per nephrology. Notably she has a history of nephrotic syndrome with last nephrology note reporting nonnephrotic range proteinuria for the first time in years. May need to hold dialysis temporarily to avoid circulating bacteria throughout her system. (8) Anemia: Plan: Chronic anemia of CKD-on Procrit as needed. Worse today. Hemolytic workup is pending. Will work with Nephrology on giving transfusion if needed. CBC in am. (9) DMII (diabetes mellitus, type 2): Plan: Chronic with complications of retinopathy and polyneuropathy. A1c reflects good control. Continue insulin management. (10) Constipation due to opioid therapy: Plan: refuses enema. Trial glycerin MI with additional Relistor tonight if suppository is ineffective. (11) DVT prophylaxis: Plan: Heparin Full code Disposition-Awaiting transfer to [facility] once bed is available. Gave a call to [facility] for consideration to transfer her there, however, their surgeons are also not doing any BKAs which is part of the treatment need. Hopeful for movement overnight or early tomorrow morning. Renea Dennis DO [facility]ist Admission and Anticipated Discharge Date Admission Date: February 24, 2022 Subjective 56-year-old female with pancreatic neuroendocrine tumor with metastatic disease presents with worsening mid to upper back pain and decreased strength in lower extremities. very drowsy today no respiratory distress afebrile able to wake up for a few seconds and tell me she is at [facility] states she is not in pain level of lethargy is new this morning from yesterday. she denies BM overnight CT head negative this am ABG WNL more anemic on labs. Review of Systems Review of Systems: ROS was not completed 2/2 patient falling asleep Physical Exam Physical Exam: CONSTITUTIONAL: WNWD, vitals as above, NAD EYES: normal conjunctivae, no scleral icterus ENT: external ear and nose normal, MMM NECK: trachea midline RESPIRATORY: clear to auscultation bilaterally, no crackles, rales or wheezes, normal respiratory effort CARDIOVASCULAR: regular rate and rhythm, S1 and 2 heard without murmurs, gallops or rubs, no JVD, no peripheral edema CHEST: inspection of chest was normal GASTROINTESTINAL: soft, nontender, ND, no guarding MUSCULOSKELETAL: she is laying on her side in the bed with pain in her back with minimal movement. SKIN: warm and dry, left foot is wrapped with Kerlix some drainage that is bloody is coming through. NEUROLOGIC: CN 2-12 grossly intact, no sensory deficit, normal cognition, normal speech, no tremor PSYCHIATRIC: alert cooperative and oriented to person, place and time. Euthymic mood, makes good eye contact, language grossly intact, recent and remote memory grossly intact. Results & Data Results & Data ([facility]) Vital Signs (Past 12 Hours) Vital Signs Temp Pulse Pulse Resp BP Pulse Ox O2 Del Method 03/02/22 15:00 36.6 C 84 16 129/65 98 Room Air 03/02/22 05:55 90 03/02/22 11:43 36.5 C 82 16 101/56 L 96 Room Air 03/02/22 07:34 36.8 C 88 16 113/66 95 Room Air 03/02/22 05:32 36.9 C 93 H 18 118/69 95 Room Air Laboratory Results Short CBC 03/02/22 03/02/22 Range/Units 05:50 11:30 WBC 8.10 7.89 (4.8-10.8) K/ul Hgb 7.0 L 7.1 L (12.0-16.0) g/dl Hct 22.8 L 23.2 L (34.1-44.9) % Plt Count 183 197 (130-400) K/uL BMP 03/02/22 05:50 Sodium 135 L Potassium 3.3 L Chloride 100 Carbon Dioxide 27 BUN 54 H Creatinine 4.33 H Glucose 124 H Calcium 9.1 Liver Function 03/02/22 Range/Units 12:54 Total Bilirubin 0.4 (0.2-1.0) mg/dl Direct Bilirubin 0.3 H (0-0.2) mg/dl AST 13 (13-39) U/L ALT 18 (7-52) U/L Alkaline Phosphatase 109 H (34-104) U/L Albumin 2.2 L (3.4-5.0) gm/dl Diagnostic Findings Head CT 03/02/22 11:00 CT SCAN OF THE BRAIN WITHOUT IV CONTRAST CLINICAL HISTORY: Change in mental status. COMPARISON STUDY: CT of the brain dated 04/04/2021. TECHNIQUE: Unenhanced axial CT scan of the brain is performed from the vertex to the skull base. A dose lowering technique was utilized adhering to the principles of ALARA. CT DOSE: 614.27 mGy.cm FINDINGS: Brain parenchyma: There is age-related involutional change noting mild subcortical and periventricular microangiopathic disease. There is no hemorrhage, mass effect, or evidence of acute territorial ischemia by CT criteria. Rosa-white matter differentiation is preserved. No extra-axial fluid collection is seen. Ventricles, sulci, cisterns: Prominent secondary to involutional change. Intracranial vasculature: There is atherosclerotic calcification of the cavernous carotid arteries. Calvarium: Unremarkable. Sinuses and mastoids: Trace mucosal thickening is noted in the right maxillary antrum. The remaining paranasal sinuses are clear. The mastoid air cells are well pneumatized. Orbits: The bony orbits are grossly intact. There are bilateral ocular lens implants. IMPRESSION: There is no hemorrhage, mass effect, or evidence of acute territorial ischemia by CT criteria. ACT 112: Negative or not required by law. Electronically signed by: Russell Fernandez M.D. 03/02/2022 3:37 PM Medications Administered Current Inpatient Medications Acetaminophen (Acetaminophen 325 Mg Tab) 650 mg PO Q4H PRN PRN Reason: Pain or Fever Stop: 03/26/22 06:13 Last Admin: 03/02/22 05:42 Dose: 650 mg Calcitonin [place] (Calcitonin [place] Na 200 Iu/Ac 3.7 Ml Btl) 1 sprays NA QAM [facility] Stop: 03/26/22 08:59 Last Admin: 03/02/22 11:00 Dose: Not Given Dextrose (Dextrose 50% 50 Ml Syringe) 25 - 50 ml IV UD PRN; Protocol PRN Reason: Hypoglycemia Protocol Stop: 03/27/22 09:29 Docusate Sodium (Docusate Sodium 100 Mg Cap) 100 mg PO BID PRN PRN Reason: Constipation Stop: 03/26/22 06:13 Glucagon (Glucagon For Inj 1 Mg Vial) 1 mg IM UD PRN; Protocol PRN Reason: Hypoglycemia Protocol Stop: 03/27/22 09:29 Glucose (Glucose 40% Gel 15 Gm Tube) 15 - 30 gm PO UD PRN; Protocol PRN Reason: Hypoglycemia Protocol Stop: 03/27/22 09:29 Glucose (Glucose 10 Tab/Tube) 4 - 8 tab PO UD PRN; Protocol PRN Reason: Hypoglycemia Protocol Stop: 03/27/22 09:29 Glycerin (Glycerin Adult 12 Supp/Box Supp) 1 supp MI NOW ONE Stop: 03/02/22 21:00 Heparin Sodium (Porcine) (Heparin Sod 5,000 Unit/0.5 Ml Vial) 5,000 units SQ Q8 [facility] Stop: 03/27/22 13:59 Last Admin: 03/02/22 05:42 Dose: 5,000 units Insulin Aspart (Insulin Aspart Per Unit) 0 units SC ACHS [facility] Stop: 03/26/22 07:29 Last Admin: 03/02/22 17:18 Dose: 7 units Insulin Glargine (Lantus Per Unit Charge) [address] [facility] Stop: 03/26/22 08:59 Last Admin: 03/02/22 08:54 Dose: 32 units Lactobacillus Acidophilus (Advanced Probiotic 1250 Mg Capsule) [address] [facility] Stop: 03/26/22 08:59 Last Admin: 03/02/22 11:00 Dose: Not Given Lactulose (Lactulose Syrup 20 Gm/30 Ml Udc) 20 gm PO BID PRN PRN Reason: constipation Stop: 03/26/22 06:13 Levothyroxine Sodium (Levothyroxine Sodium 125 Mcg Tablet) [address] [facility] Stop: 03/26/22 06:29 Last Admin: 03/02/22 05:42 Dose: 125 mcg Methadone HCl (Methadone Hcl 10 Mg Tab) [address] [facility] Stop: 03/10/22 08:59 Last Admin: 03/02/22 11:01 Dose: Not Given Methylnaltrexone [place] (Methylnaltrexone [place] 12 Mg/0.6 Ml Vial) 12 mg SQ ONCE ONE Stop: 03/02/22 21:00 Miscellaneous (Carbohydrates For Hypoglycemia ) 15 - 30 gm PO UD PRN PRN Reason: Hypoglycemia Treatment Stop: 03/27/22 09:29 Miscellaneous Information (Vancomycin Consult Active) 1 each N/A UD PRN PRN Reason: Consult Stop: 03/28/22 05:50 Nitroglycerin (Nitroglycerin Sl 0.4 Mg/Tab Tab) 0.4 mg SL UD PRN PRN Reason: Chest Pain Stop: 03/26/22 06:13 Non-Formulary Patient's Own Med - Velphoro Chew 500 Mg [address] [facility] Stop: 03/26/22 16:59 Last Admin: 03/02/22 17:17 Dose: Not Given Ondansetron HCl (Ondansetron Inj 2 Mg/Ml 2 Ml Vial) 4 mg IV Q6H PRN PRN Reason: Nausea Stop: 03/26/22 06:13 Oxycodone HCl (Oxycodone Hcl Ir 5 Mg Tab (Immediate Release)) 5 mg PO Q6H PRN PRN Reason: severe pain Stop: 03/11/22 11:25 Last Admin: 03/01/22 08:19 Dose: 5 mg Polyethylene Glycol (Polyethylene (Miralax) 17 Gm Pack) 17 gm PO DAILY [facility] Stop: 04/02/22 08:59 Sevelamer HCl (Sevelamer Hcl 800 Mg Tablet) 1,600 mg PO TIDM [facility] Stop: 03/26/22 07:59 Last Admin: 03/02/22 17:16 Dose: 1,600 mg Vitamin B Complex (Vitamin B Complex Tab) 1 tab PO QAM [facility] Stop: 03/26/22 08:59 Last Admin: 03/02/22 11:01 Dose: Not Given
--- NOTE | 2022-03-02 16:56 | Nephrology Progress Note ---
Date of Service March 02, 2022 Assessment & Plan (1) ESRD (end stage renal disease): Plan: Patient with ESRD on dialysis Wednesday. at 02/28 HD tx, no fluid removed. AV fistula infiltrated today again as well as last time on - her endovascular catheter is very challenging to use for inpatient teams historically. Regardless has a PermCath will have to be removed due to bacteremia. d/w Della Dennis and Ligia > for TDC removal tomorrow AM if she is still in house; will need temp cath after removal so we can continue her dialysis. reluctant to dialyze until we have new TDC; did discuss her MS w/ attending hospitalist - septic emboli on differential; doubt uremia (2) MRSA bacteremia: Plan: unremitting MRSA bacteremia likely source is osteomyelitis of the foot; no source control until she can have L BKA. Her PermCath will have to be removed. Admission and Anticipated Discharge Date Admission Date: February 24, 2022 Subjective seen on rounds this am at 0900; pt lethargic, hoarse, could not answer/ engage for ROS; d/w nurse which is different than yesterday Review of Systems Review of Systems: Unobtainable due to reduced consciousness Physical Exam Constitutional: well developed, + cachectic and + frail appearing; no acute distress ENMT: Ears: no external ear abnormality Nose: no external nose abnormality Mouth: + dry oral mucous membranes Neck: no nuchal rigidity Respiratory: normal respiratory effort Auscultation: + diminished lung sounds Cardiovascular: Rate/Rhythm: regular rate and regular rhythm Extremities: no edema Gastrointestinal (Abdomen): Inspection/Auscultation: normal bowel sounds Percussion/Palpation: abdomen soft; abdomen nontender Musculoskeletal: Extremities: + abnormal strength Skin: no rashes, warm and dry Neurologic: rodriguez, generalized weakness, minimal/ one syllable speech, no tremor Results & Data ([facility]) Vital Signs (Past 12 Hours) Vital Signs Temp Pulse Pulse Resp BP Pulse Ox O2 Del Method 03/02/22 14:19 82 03/02/22 15:00 36.6 C 84 16 129/65 98 Room Air 03/02/22 05:55 90 03/02/22 11:43 36.5 C 82 16 101/56 L 96 Room Air 03/02/22 07:34 36.8 C 88 16 113/66 95 Room Air 03/02/22 05:32 36.9 C 93 H 18 118/69 95 Room Air Laboratory Results 03/02/22 11:30 03/02/22 05:50
[2022-03-02] MEDS ORDERED: GLYCERIN ADULT 12 SUPP/BOX SUPP PR ONE (20:59)
[2022-03-02] MEDS ORDERED: METHYLNALTREXONE BROMIDE 12 MG/0.6 ML VIAL SQ ONE (20:59)
[2022-03-03] MEDS: METHADONE HCL 10 MG TAB PO SCH ×3 (00:04→14:49)
[2022-03-03] MEDS: VELPHORO 500 MG PO SCH ×4 (00:13→16:41)
[2022-03-03] MEDS: LEVOTHYROXINE SODIUM 125 MCG TABLET PO SCH (05:54)
[2022-03-03] MEDS: INSULIN ASPART PER UNIT SC SCH ×3 (08:00→17:00)
--- NOTE | 2022-03-03 08:00 | Nephrology Progress Note ---
Date of Service March 03, 2022 Assessment & Plan (1) ESRD (end stage renal disease): Plan: Patient with ESRD on dialysis Wednesday. at 02/28 HD tx, no fluid removed. AV fistula infiltrated 02/28 again as well as 02/26 - her endovascular catheter is very challenging to use for inpatient teams historically. Regardless has a PermCath will have to be removed due to bacteremia. d/w Della Dennis and Ligia > for TDC removal today since she is still in house; will need temp cath 24-48 after removal so we can continue her dialysis. reluctant to dialyze until we have new TDC; with persistent bacteremia even a small line holiday is better for her -big drop in hgb yesterday > but recheck hgb stable today; transfuse prn -prefer to avoid dialyzing unless we have to until she has temp line in place, even better a line holiday > working on that (2) MRSA bacteremia: Plan: unremitting MRSA bacteremia likely source is osteomyelitis of the foot; no source control until she can have L BKA. Her PermCath will have to be removed. Admission and Anticipated Discharge Date Admission Date: February 24, 2022 Subjective MS improved through course of day yesterday; still no bed at tertiary; tells me she feels good though rear is sore/ positional, no sob, no N; for TDC removal today Review of Systems Review of Systems: All systems reviewed & are unremarkable except as noted in Subjective Physical Exam Constitutional: well developed, + cachectic and + frail appearing; no acute distress ENMT: Ears: no external ear abnormality Nose: no external nose abnormality Mouth: + dry oral mucous membranes Neck: no nuchal rigidity Respiratory: normal respiratory effort Auscultation: + diminished lung sounds Cardiovascular: Rate/Rhythm: regular rate and regular rhythm Extremities: no edema Gastrointestinal (Abdomen): Inspection/Auscultation: normal bowel sounds Percussion/Palpation: abdomen soft; abdomen nontender Musculoskeletal: Extremities: + abnormal strength Skin: no rashes, warm and dry Neurologic: rodriguez, fluent speech, no tremor Psychiatric: Orientation: oriented x 3 Results & Data ([facility]) Vital Signs (Past 12 Hours) Vital Signs Temp Pulse Pulse Resp BP Pulse Ox O2 Del Method 03/03/22 04:49 37.0 C 99 H 20 137/75 93 Room Air 09/27/22 04:10 Room Air 03/03/22 00:00 102 H 03/03/22 00:02 36.7 C 105 H 20 125/77 98 Room Air Laboratory Results 03/02/22 11:30 03/02/22 05:50
[2022-03-03 08:43] LABS: Hematocrit (blood only) 22.9 % (34.1-44.9); Hemoglobin 7.1 g/dl (12.0-16.0); Mean Platelet Volume 9.7 fL (9.4-12.3); Platelet Count 222 K/uL (130-400); RDW Coefficient of Variation 17.2 % (11.5-14.5); RDW Standard Deviation 61.9 fL (36.4-46.3); Red Blood Count 2.29 M/uL (3.93-5.22); White Blood Count 8.98 K/ul (4.8-10.8)
--- NOTE | 2022-03-03 08:43 | Consultation ---
Date of Consultation March 03, 2022 Assessment & Plan (1) Hemodialysis catheter infection: Patient for removal of permcath. I have discussed the risks options and benefits of the procedure with the patient. The patient understands the risks options and benefits and agrees to the procedure. History of Present Illness Reason for Consultation: Infected permcath Attending Physician: Renea Dennis DO History of Present Illness 56 yo f with multiple medical problems, including ESRD on HD, anemia, DMII, metastases to spine, neuroendocrine tumor, admitted with worsening back pain and sepsis. Found to have extensive osteo of the ankle and foot. Has a permcath in place which can also be a nidus for infection. She has persistent blood cultures of MRSA. Allergies Allergy/AdvReac Type Severity Reaction Status Date / Time Iodinated Contrast Media AdvReac Severe Patient Verified 02/24/22 02:16 has kidney failure omeprazole AdvReac Severe Increased Verified 02/24/22 02:16 her acid reflux MICHAEL Inhibitors AdvReac Unknown Intolerance Verified 02/25/22 12:29 Gabapentin AdvReac Severe Tremor Uncoded 02/25/22 12:29 Home Medications Medication Instructions Recorded Confirmed Type insulin aspart U-100 100 unit/mL 1 sliding scale dose subcut 03/15/21 02/24/22 History subcutaneous solution (Novolog USEASDIRECTD U-100 Insulin aspart) levothyroxine 125 mcg tablet 125 mcg PO DAILYBB 03/15/21 02/24/22 History docusate sodium 100 mg capsule 100 mg PO BID PRN Constipation 06/11/21 02/24/22 History (Colace) sevelamer carbonate 800 mg tablet 1,600 mg PO TIDM 07/30/21 02/24/22 History (Renvela) vitamin B complex-vitamin C-folic 1 tab PO QAM 09/11/21 02/24/22 History acid 0.8 mg tablet (Ira-Umer) hydromorphone 8 mg tablet 8 mg PO Q3H PRN Pain 02/02/22 02/24/22 History calcitonin (salmon) 200 1 spray NA QAM 02/19/22 02/24/22 History unit/actuation nasal spray insulin glargine 100 unit/mL (3 32 unit subcut QAM 02/19/22 02/24/22 History mL) subcutaneous pen (Basaglar KwikPen U-100 Insulin) methadone 10 mg tablet 10 mg PO TID 02/19/22 02/24/22 History Lactobacillus acidoph-L.bulgaricus 1 tab PO AMPM 02/24/22 02/24/22 History 1 million cell chewable tablet lactulose 10 gram/15 mL oral 15 ml PO BID PRN Constipation 02/24/22 02/24/22 History solution sucroferric oxyhydroxide 500 mg 500 mg PO QID 02/24/22 02/24/22 History chewable tablet (Velphoro) Patient History Medical History Acid reflux Anemia Chronic narcotic dependence Diabetes Diabetic retinopathy ESRD (end stage renal disease) On dialysis [id number] @ [facility] in [place] H/O vocal cord paralysis Right side Hypertension MRSA bacteremia 2017; unclear if vertebral or R diabetic foot wound source 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---only had radiation treatments Osteomyelitis of left foot chronic 2020 and 2021 Radicular pain of thoracic region Retinal hemorrhage, right eye Sepsis Thyroid cancer had sx Thyroid nodule Wound abscess left foot diabetic ulcer Surgical History Amputation of right great toe AVF (arteriovenous fistula) endovascular L; created 09/2020 H/O thyroidectomy Partial thyroidectomy History of cholecystectomy History of esophagogastroduodenoscopy (EGD) History of surgery Surgery to removed benign tumor from right vocal cord; History of surgery (~01/26/22) permcath placed--pt states her AV fistula was not working properly so permcath placed at that time by Dr. Strong @ [facility]--per pt on 02/19/22 she states her AV fistula is now working properly History of surgical procedure on eye proper using laser History of tooth extraction partial upper denture Hx of cataract surgery Bilateral Hx of tonsillectomy Previous section x2 Family History Mother , 70yo Diabetes Valvular heart disease Father , 74yo Diabetes Pneumonia Brother No problems noted. Brother No problems noted. Sister Kidney disease Dialysis patient Daughter No problems noted. Daughter Diabetes Other No family history of adverse response to anesthesia Social History Smoking Status: Never smoker Second Hand Exposure: No; Do You Dip or Chew Tobacco: No; Tobacco Cessation Education Requested by Patient: No Hx Alcohol Use: No Hx Substance Use: No Preferred Language: Spanish Communication Ability: Impaired Visual Impairment: No Limitations Hearing Ability: Normal Bit Tapper Required: No Beliefs That Will Affect Care: None marital status: Current Living Situation: Spouse Current Living Situation Comment: Home w/ current occupational status: disabled How many Children do You have: 2 Other Information That Helps Us Care for You: No Feels Safe at Home: Yes Safety Concerns: Feels Safe At This Time caffeine: No during the past year weight has: remained stable Assistive Devices: Bedside Commode, Walker and Wheelchair Review of Systems Review of Systems: All systems reviewed & are unremarkable except as noted in HPI & below Physical Exam Constitutional: WD/WN, vitals as above Respiratory: normal respiratory effort, lungs clear to auscultation Cardiovascular: RRR, no murmur, no edema Chest (Breasts): Additional Comments: permcath in place Gastrointestinal (Abdomen): Inspection/Auscultation: abdomen normal to inspection; abdomen not distended Percussion/Palpation: abdomen soft; abdomen nontender Musculoskeletal: no cyanosis or clubbing, extremities motor strength 5/5 Neurologic: CN's II-XI intact bilaterally and moves all extremities Psychiatric: Orientation: alert and oriented x 3 Results & Data ([facility]) Vital Signs (Past 12 Hours) Vital Signs Temp Pulse Pulse Resp BP Pulse Ox O2 Del Method 03/03/22 08:07 37.1 C 98 H 17 121/73 90 Room Air 03/03/22 04:49 37.0 C 99 H 20 137/75 93 Room Air 03/03/22 04:10 Room Air 03/03/22 00:00 102 H 03/03/22 00:02 36.7 C 105 H 20 125/77 98 Room Air
[2022-03-03] MEDS ORDERED: LIDOCAINE 1% LOCAL 20 ML VIAL ONE (08:52)
[2022-03-03] MEDS ORDERED: POLYETHYLENE (MIRALAX) 17 GM PACK PO SCH ×2 (09:00→16:15)
[2022-03-03] MEDS ORDERED: fentaNYL citrate 100 MCG/2 ML VIAL ONE (09:18)
[2022-03-03] MEDS ORDERED: MIDAZOLAM HCL 1 MG/ML 2ML VIAL ONE (09:19)
[2022-03-03 09:26] LABS: BUN Creatinine Ratio 13.9 (10-20); Calcium 9.3 mg/dl (8.5-10.1); Creatinine Clr Calc Pharmacy 13.4 ml/min; Est GFR (African American) 10.4 ml/min; Est GFR (Non-African American) 8.9 ml/min; Magnesium 2.1 mg/dl (1.7-2.4); Phosphorus 2.4 mg/dl (2.5-4.9); Potassium 3.8 mmol/L (3.5-5.1)
--- NOTE | 2022-03-03 09:44 | Operative Report ---
Post Operative Report Pre & Post Diagnosis Operation Date: 03/03/22 09:50 Pre-Op Diagnosis: Infected Perm Cath Post-Op Diagnosis: Infected Perm Cath I identified the patient and participated in the time-out.: Yes Procedure Operation Date: 03/03/22 09:50 Actual Procedures p Perm Catheter Removal(Left) - Rigo Strong MD Surgeon Rigo Strong MD Heading Pinner none Estimated Blood Loss 0 Findings Consistent with Post-Op Diagnosis Specimens none Anesthesia Type Local Complications none Disposition Accompanied Patient To Recovery: No Disposition: Recovery Room Indications This is a 56-year-old female with a left internal jugular vein PermCath in place. She also has osteomyelitis of her ankle and most likely her back. She has multiple positive blood cultures. Removal of the PermCath was recommended. I have discussed the risks options and benefits of the procedure with the patient. The patient understands the risks options and benefits and agrees to the procedure. Description of Procedure The patient was taken to the angio suite and placed in the supine position. The patient was identified and a timeout performed. The left side of the neck, chest wall and catheter were prepped and draped in a sterile manner. Local anesthesia was then accomplished. Using sharp and blunt dissection, the cuff of the permcath was freed up from the surrounding fibrous tissue. The permcath and cuff were completely removed. Pressure was then applied and adequate hemostasis was obtained. A sterile dressing was then applied. The patient left the operation room in satisfactory condition and tolerated the procedure well. All needle and sponge counts were correct at the end of the procedure. I attest to the content of the Intraoperative Record and any orders documented therein. Any exceptions are noted below.
[2022-03-03] MEDS: ACETAMINOPHEN 325 MG TAB PO PRN ×2 (10:55→18:25)
[2022-03-03] MEDS: CALCITONIN SALMON NA 200 IU/AC 3.7 ML BTL SCH (10:56)
[2022-03-03] MEDS: VITAMIN B COMPLEX TAB PO SCH (10:57)
[2022-03-03] MEDS: ADVANCED PROBIOTIC 1250 MG CAPSULE PO SCH (10:57)
[2022-03-03] MEDS: SEVELAMER HCL 800 MG TABLET PO SCH ×3 (10:58→16:51)
[2022-03-03] MEDS: LANTUS PER UNIT CHARGE SQ SCH (11:35)
[2022-03-03] MEDS ORDERED: VANCOMYCIN HCL 500 MG in DEXTROSE 5% 100 ML IV SCH (12:00)
--- NOTE | 2022-03-03 14:11 | Pharmacy Report ---
Pharmacy PK ABX Note - Date of Service March 03, 2022 - Assessment and Plan Assessment 03/03: * Random Vanco level today AM was 18.1 mcg/ml * Patient went to the OR for perm cath placement this AM. * Vancomycin 500 mg IV re-ordered for 12:00 noon today since level at goal. However, RN said her IV line is not functional, waiting for IV team before Vancomycin can be infused. * Not clear if patient will get HD today. * Random level ordered with AM labs tomorrow. 03/02: * Random vanc leve this AM was 16.4 mcg/mL. * No HD scheduled for today. Next session tomorrow. * Will give a small vanco dose today given persistent bacteremia to make sure trough does not drop below 15 mcg/mL. * Lab check if true vanc RUTHY = 2 on this MRSA. 02/28: * Random vanc level this AM was 20.5 mcg/mL. * Patient will receive HD today so plan on giving a small vancomycin dose post dialysis. * MRSA growing in 4/4 bottles from 02/25/22 blood cultures. Repeat blood cultures on 02/27/22 have GPCs in clusters in both aerobic bottles, likely MRSA. MRI ordered by ortho today. ID consulted as well. * Will order a random vanc level for Wednesday morning given patient does produce some urine on her own. 02/27: * Random vanc level obtained this mornin.9 mcg/mL * Patient is not scheduled to receive HD today, but she does still make some urine. For this reason, small supplemental dose of Vancomycin was ordered for today, so that patient's vancomycin level does not become subtherapeutic. * Will check another random vanc level tomorrow morning prior to HD. Anticipate that patient will receive another dose tomorrow after HD has been completed. 02/26: * Ms Wilkins is a 56 year old F receiving Vancomycin for treatment of bacteremia. 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 * Goal trough for bacteremia: 15-20 mcg/mL * Random level ordered for 03/03/22 Pharmacy will continue to follow and will adjust dose/frequency as necessary. Thank you.
--- NOTE | 2022-03-03 15:20 | Discharge Summary ---
Discharge Summary Date of Service March 03, 2022 Notes For Next Care Provider Anemia is more severe, transfuse as needed opiate induced constipation, worse over last couple of days despite Relistor x 2, enemas, scheduled miralax and suppositories. Has a h/o requiring frequent ma nual disimpactions prior to admission. ESRD patient due for hemodialysis T/R/Sat. Did not receive HD while persistently bacteremic since Sat 02/28. Permanent dialysis catheter removed by vascular surgeon on morning of 03/03 Prior to finding infection, she did discuss additional stereotactic XRT as an option for her spinal mets with radiation oncology They decided to try some steroids after she cleared the infection. Unable to clear MRSA despite several days of vancomycin. Medication Changes From Visit Vancomycin IV Admission HPI Per Admitting Provider HISTORY OF PRESENT ILLNESS: This is a 56-year-old female with past medical history significant type 2 diabetes, end-stage renal disease on hemodialysis, diabetic polyneuropathy, hyperlipidemia, history of hypothyroidism, hypertension, history of osteomyelitis of the left foot, status post treatment, follows with [facility], completed antibiotic course, anemia of chronic kidney disease, history of metastatic neuroendocrine cancer deemed not a candidate for chemotherapy, status post radiation treatment presents with severe back pain. The patient recently presented to the hospital with severe back pain and found to have new lesions in the thoracic and lumbar spine, burst fracture of T4 and L4 from metastatic neuroendocrine tumor. She completed palliative radiation treatment and she was discharged on pain medications. Following up with the palliative care. She is on methadone, p.o. Dilaudid and calcitonin spray. The patient currently received Ativan and Dilaudid before the MRI scans and currently she is very drowsy. As per , the pain got worse yesterday morning and when he came home, she was in a lot of pain. She is wheelchair bound for the last 2 to 3 months. She is able to stand up, but yesterday, could not stand up, that is the reason she was brought into the hospital. As per no complaints of chest pain or shortness of breath, or nausea or vomiting or abdominal pain. As per , she is eating and drinking okay, afebrile. Could not get much history at this time. She also has dressing on the left foot and also some ulcers on the heel on the left foot. As per , she is not on antibiotics, she is followed by the wound clinic. Admission Exam Per Admitting Provider PHYSICAL EXAMINATION: GENERAL: The patient is drowsy. VITAL SIGNS: Temperature 37.4, pulse 110, respirations 17, blood pressure 164/87, oxygen 99% on 1 liter. HEENT: Pupils are sluggish to react. No facial droop, atraumatic. NECK: No JVD, no neck masses. CARDIOVASCULAR: S1 and S2 heard. Regular rate and rhythm. No murmur, no gallop. RESPIRATORY SYSTEM: Normal AP diameter. No accessory muscle use. No wheezing, no crackles. ABDOMEN: Soft, bowel sounds present, no distention, CENTRAL NERVOUS SYSTEM: Currently very drowsy. EXTREMITIES: Right lower extremity is normal. Left lower extremity is somewhat swollen. Left heel ulcer and foot ulcer seen and no active drainage seen. Principal Dx & Hospital Course #1 = Principal Diagnosis (1) Pathologic fracture of thoracic vertebrae: Pain is not well managed without steroids. Continues on narcotics and repositioning as tolerating. Once infection has been treated appropriately, she may find benefit from short term decadron as a transition to additional XRT therapy. (2) Neuroendocrine tumor: chronic, with metastasis. Not a candidate for chemotherapy or hormonal therapy options at this time. (3) MRSA bacteremia: 4/4 bottles positive. Repeat cultures are still positive likely related to left lower extremity osteomyelitis. No fevers or chills overnight. Osteo seen in left tibia on LLE x-rays. MRI foot/ankle reveal fluid collections and presence of osteo. She has a fistula and a permanent dialysis catheter in place now. She continues on vancomycin at time of discharge. (4) Osteomyelitis of left foot: Tertiary care recommended as there is not a surgeon here able to perform a BKA. Pending transfer to [facility] as soon as bed is available. 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 She has received radiation therapy to her cervical and recently to the thoracic spine. Lumbar spine/pelvic radiation was performed June 2021. Non-operative candidate at this time and not a candidate for chemotherapy options with ongoing wounds and hemodialysis. Steroids started initially with good response, but held in setting of infection. She was evaluated by her radiation oncologist, Dr. Abernathy, who discussed stereotactic XRT. This was pu on hold at this time but may be revisited as a possible solution in the future. (6) Chronic narcotic dependence: Continues on chronic methadone. Pain management consulted and will continue with breakthrough oxycodone for pain from worsening metastatic disease above. Baclofen atrial was unsuccessful. (7) ESRD (end stage renal disease): Nephrology following-patient on Wednesday dialysis. Her perm cath was removed in setting of bacteremia and she left this hospital without access. She has an AV fistula in the left AC but this has recently demonstrated access issues. She will likely need new temporary dialysis catheter placement after bacteremia can be cleared with source control. (8) Anemia: Chronic anemia of CKD-on Procrit as needed. There was a decline in her Hb to 7 from around 9 with no overt blood loss. Hemolytic workup was negative with DEVONET negative, normal reticulocyte count and no evidence of schistocytes on peripheral smear. As hemodialysis is being temporarily held pending a new dialysis catheter, will hold on any blood products given the high risk of overload and nonemergent need. Cont to re-evaluate at receiving facility. 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 A1c reflects good control. Continue insulin management. (10) Constipation due to opioid therapy: refractory to Relistor, suppositories and enemas tried multiple times. Cont stool softener and readdress at [facility]. She reports severe chronic constipation at baseline. (11) Pressure ulcer: Pressure ulcer of sacral region, stage 3, POA Pressure ulcer R buttocks, stage 3, POA Pressure ulcer L buttocks, stage 2, POA Discharge Exam CONSTITUTIONAL: WNWD, vitals as above, NAD but generally ill-appearing and fatigued EYES: normal conjunctivae, no scleral icterus ENT: external ear and nose normal, MMM NECK: trachea midline RESPIRATORY: clear to auscultation bilaterally, no crackles, rales or wheezes, normal respiratory effort CARDIOVASCULAR: regular rate and rhythm, S1 and 2 heard without murmurs, gallops or rubs, no JVD, no peripheral edema CHEST: inspection of chest was normal GASTROINTESTINAL: soft, nontender, ND, no guarding MUSCULOSKELETAL: she is laying on her side in the bed with pain in her back with minimal movement. SKIN: warm and dry, left foot is wrapped with Kerlix some drainage that is bloody is coming through. NEUROLOGIC: CN 2-12 grossly intact, no sensory deficit, normal cognition, normal speech, no tremor PSYCHIATRIC: alert cooperative and oriented to person, place and time. Euthymic mood, makes good eye contact, language grossly intact, recent and remote memory grossly intact. Updated Medication List Medication Instructions Recorded Confirmed Type insulin aspart U-100 100 unit/mL 1 sliding scale dose subcut 03/15/21 02/24/22 History subcutaneous solution (Novolog USEASDIRECTD U-100 Insulin aspart) levothyroxine 125 mcg tablet 125 mcg PO DAILYBB 03/15/21 02/24/22 History docusate sodium 100 mg capsule 100 mg PO BID PRN Constipation 06/11/21 02/24/22 History (Colace) sevelamer carbonate 800 mg tablet 1,600 mg PO TIDM 07/30/21 02/24/22 History (Renvela) vitamin B complex-vitamin C-folic 1 tab PO QAM 09/11/21 02/24/22 History acid 0.8 mg tablet (Ira-Umer) hydromorphone 8 mg tablet 8 mg PO Q3H PRN Pain 02/02/22 02/24/22 History calcitonin (salmon) 200 1 spray NA QAM 02/19/22 02/24/22 History unit/actuation nasal spray insulin glargine 100 unit/mL (3 32 unit subcut QAM 02/19/22 02/24/22 History mL) subcutaneous pen (Basaglar KwikPen U-100 Insulin) methadone 10 mg tablet 10 mg PO TID 02/19/22 02/24/22 History Lactobacillus acidoph-L.bulgaricus 1 tab PO AMPM 02/24/22 02/24/22 History 1 million cell chewable tablet lactulose 10 gram/15 mL oral 15 ml PO BID PRN Constipation 02/24/22 02/24/22 History solution sucroferric oxyhydroxide 500 mg 500 mg PO QID 02/24/22 02/24/22 History chewable tablet (Velphoro) Hospital Stay Data Consultations 02/24/22 01:09 ED Decision to Admit Stat 02/24/22 07:15 Consult Palliative Care Routine 02/24/22 08:00 Consult Nephrology Routine Consult Orthopedic Surgery Routine Consult Pain Management Routine 02/25/22 12:07 Consult Radiation Oncology Routine 02/27/22 09:27 Consult Infectious Diseases Routine Consult Orthopedic Surgery Routine 02/27/22 18:47 Consult Podiatry Routine 02/28/22 11:27 Consult Vascular Surgery Routine 03/02/22 07:20 Burn CD for patient Routine Procedures Performed Operation Date: 03/03/22 09:50 Actual Procedures p Perm Catheter Removal(Left) - Rigo Strong MD Diagnostic Imagining Performed 02/23/22 21:47 MR lumbar spine wo con Stat MR thoracic spine wo con Stat 02/28/22 08:55 MR ankle LT wo con Routine 03/02/22 11:00 CT head/brain wo con Urgent Pending Results Patient Have Any Pending Studies at Discharge: No Discharge Instructions Given to Patient (Per Discharging Provider) He is follow-upYou are being transferred to [facility] in [facility] for further work-up and treatment of your left lower leg infection. With your primary care doctor within 1 week of discharge from this hospital. It is recommended that you also follow-up with your radiation oncologist, Dr. Roque Abernathy, regarding the role for further radiation in the future. It was a pleasure taking care of you! Please call if you have any questions or problems. You can reach a [facility] hospitalist on duty at [facility] 24 hours a day by calling [phone]. Take care of yourself. Renea Dennis, DO [facility] Total Time Total Time Spent Total Time Spent (In Minutes): 60
[2022-03-03 19:46] VITALS: BP 152/78; PULSE 83; TEMP 97.7; O2SAT 100
[2022-03-04] MEDS ORDERED: POLYETHYLENE (MIRALAX) 17 GM PACK PO SCH (09:00)
--- NOTE | 2022-03-11 08:42 | Coding Query ---
CODING QUERY To promote full compliance with coding requirements relating to patient care, provider participation is requested in all cases of medical billing coder uncertainty. Please assist us with the question(s) below: Coding Question(s): The H&P documents severe Intractable back pain with documentation of, "This is a 56-year-old female who presents with severe intractable back pain. 1. Severe intractable back pain: She is mostly wheelchair bound .Metastatic neuroendocrine tumor. Finished palliative radiation therapy recently. She is wheelchair bound for the last 2-3 months, but able to stand up as per . Since last night, she has been not able to stand up. The patient is very drowsy, she got Ativan and Dilaudid for MRI scans. Continue home methadone. We will hold her home Dilaudid and place her on IV Dilaudid p.r.n. Consult pain management and orthopedic surgery. 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 Please specify below, in your clinical opinion, the most likely main source of the patient's Intractable Back Pain. ( ) Metastatic Neuroendocrine Tumor (x ) Pathological Fracture of spine due to neoplasm ( ) Cauda Equina Syndrome ( ) Other: Please Specify ( ) Unknown most likely source of the Intractable Back Pain Physician's Response(s): Thank you Jannet Castelan Principal Diagnosis: "that condition established after study, to be chiefly responsible for occasioning the admission of the patient to the hospital for care." Co-Existing Principal Diagnosis: "when two or more diagnoses equally meet the criteria for principal diagnosis as determined by the circumstances of admission, diagnostic work up, and/or therapy provided, and the Alphabetic Index, Tabular List, or another coding guideline does not provide sequencing direction, any one of the diagnoses may be sequenced first." "When the physician has documented what appears to be a current diagnosis in the body of the record, but has not included the diagnosis in the final diagnostic statement, the physician should be asked whether the diagnosis should be added." (Source Coding Clinic 2 QTR90. p3-4) NAA
== END 2022-03-03 20:56 | disposition short-term general hospital (02) | DRG 542 ==
LOC: ED 16:58 → SUATTDRO 02-24 02:11 → 2W 02-24 02:11
DX: Z99.3 Dependence on wheelchair; C7B.8 Other secondary neuroendocrine tumors; Y83.2 Surgical operation with anastomosis, bypass or graft as the cause of abnormal reaction of the patient, or of later complication, without mention of misadventure at the time of the procedure; K59.03 Drug induced constipation; E11.621 Type 2 diabetes mellitus with foot ulcer; Z83.3 Family history of diabetes mellitus; L97.529 Non-pressure chronic ulcer of other part of left foot with unspecified severity; E03.9 Hypothyroidism, unspecified; G83.4 Cauda equina syndrome; B95.62 Methicillin resistant Staphylococcus aureus infection as the cause of diseases classified elsewhere; L89.313 Pressure ulcer of right buttock, stage 3; M86.5 Other chronic hematogenous osteomyelitis; T80.218A Other infection due to central venous catheter, initial encounter; Z79.899 Other long term (current) drug therapy; D63.1 Anemia in chronic kidney disease; R78.81 Bacteremia; Z79.890 Hormone replacement therapy; E11.22 Type 2 diabetes mellitus with diabetic chronic kidney disease; E11.69 Type 2 diabetes mellitus with other specified complication; L89.322 Pressure ulcer of left buttock, stage 2; Z79.891 Long term (current) use of opiate analgesic; N18.6 End stage renal disease; E11.319 Type 2 diabetes mellitus with unspecified diabetic retinopathy without macular edema; Z88.8 Allergy status to other drugs, medicaments and biological substances; R26.89 Other abnormalities of gait and mobility; E11.42 Type 2 diabetes mellitus with diabetic polyneuropathy; M54.89 Other dorsalgia; I12.0 Hypertensive chronic kidney disease with stage 5 chronic kidney disease or end stage renal disease; C7A.8 Other malignant neuroendocrine tumors; Z99.2 Dependence on renal dialysis; G89.3 Neoplasm related pain (acute) (chronic); Z79.4 Long term (current) use of insulin; M84.58XA Pathological fracture in neoplastic disease, other specified site, initial encounter for fracture; Z82.49 Family history of ischemic heart disease and other diseases of the circulatory system; L89.153 Pressure ulcer of sacral region, stage 3; G95.29 Other cord compression; T40.605A Adverse effect of unspecified narcotics, initial encounter; Z91.041 Radiographic dye allergy status; Z92.3 Personal history of irradiation

== ENCOUNTER 2022-04-18 18:45 | Inpatient (IN) ==
[2022-04-18] MEDS ORDERED: PIPERACILLIN/TAZOBACTAM 4.5 GM/120 ML BAG IV ONE (18:55)
[2022-04-18] MEDS ORDERED: VANCOMYCIN CONSULT ACTIVE PRN (18:55)
[2022-04-18] MEDS ORDERED: VANCOMYCIN HCL 1,000 MG in SODIUM CHLORIDE 0.9% 500 ML IV ONE (18:55)
--- NOTE | 2022-04-18 19:00 | Emergency Department Note ---
History of Present Illness General Chief complaint: Infection Stated complaint: WOUNDS ON BUTTOCKS & LEGS, POSSIBLE SEPSIS Time Seen by Provider: 04/18/22 18:47 History of Present Illness 56-year-old female presents from [facility] rehabilitation she is status post left BKA at [facility] in February had been doing well had the stitches recently removed and was seen by orthopedics. Patient has a history of pancreatic cancer. Patient has wounds in the sacral region as well. Reportedly patient's had a fever patient had blood cultures reportedly sent and is growing gram- negative bacilli. Patient was found to be hypotensive approximately 88/40 by EMS. Patient was given IV fluids. Patient is end-stage renal disease gets dialysis. Patient also was given 2 g of Rocephin IM prior to emergency department evaluation. Patient states that she felt hot and was dizzy in the special rehab bed that she was laying in. Home Medications Medication Instructions Recorded Confirmed Type levothyroxine 125 mcg tablet 125 mcg PO DAILYBB 03/15/21 04/07/22 History acetaminophen 325 mg capsule 650 mg PO Q6H PRN 04/07/22 04/07/22 History (Tylenol) bisacodyl 10 mg rectal suppository 10 mg MO DAILY PRN 04/07/22 04/07/22 History collagenase clostridium histo. 250 1 applic topical DAILY 04/07/22 04/07/22 History unit/gram topical ointment (Santyl) docusate sodium 100 mg capsule 100 mg PO BID Constipation 04/07/22 04/07/22 History (Colace) famotidine 20 mg tablet (Pepcid) 20 mg PO .Wed-Wed-Wed04/07/22 04/07/22 History gabapentin 100 mg capsule 200 mg PO DAILY 04/07/22 04/07/22 History hydromorphone 8 mg tablet 15 mg PO Q3H PRN Pain 04/07/22 04/07/22 History insulin glargine 100 unit/mL 10 unit subcut QPM 04/07/22 04/07/22 History subcutaneous solution (Lantus U-100 Insulin) insulin regular human 100 unit/mL 1 sliding scale dose subcut 04/07/22 04/07/22 History injection solution (Humulin R USEASDIRECTD Regular U-100 Insulin) lidocaine 5 % topical patch 1 patch topical DAILY 04/07/22 04/07/22 History methadone 10 mg tablet 15 mg PO Q8H 04/07/22 04/07/22 History midodrine 10 mg tablet 10 mg PO DAILY PRN 04/07/22 04/07/22 History ondansetron HCl 4 mg tablet 4 mg PO Q6H PRN 04/07/22 04/07/22 History polyethylene glycol 3350 17 34 g PO DAILY 04/07/22 04/07/22 History gram/dose oral powder sodium phosphates 19 gram-7 118 ml MO DAILY PRN 04/07/22 04/07/22 History gram/118 mL enema (Fleet Enema) vancomycin 1,000 mg intravenous 1 g IV .Wed-Wed-Wed04/07/22 04/07/22 History injection vitamin B complex and vitamin C 1 cap PO DAILY 04/07/22 04/07/22 History no.20-folic acid 1 mg capsule Allergies Allergy/AdvReac Type Severity Reaction Status Date / Time Iodinated Contrast Media AdvReac Severe Patient Verified 03/31/22 07:36 has kidney failure omeprazole AdvReac Severe Increased Verified 03/31/22 07:36 her acid reflux MICHAEL Inhibitors AdvReac Unknown Intolerance Verified 03/31/22 07:36 Gabapentin AdvReac Severe Tremor Uncoded 03/31/22 07:36 Past Med/Surg History Medical History Acid reflux Anemia Chronic narcotic dependence Diabetes Diabetic retinopathy ESRD (end stage renal disease) On dialysis esdras @ [facility] H/O vocal cord paralysis Right side Hypertension MRSA bacteremia 2017; unclear if vertebral or R diabetic foot wound source 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---only had radiation treatments Osteomyelitis of left foot chronic 2020 and 2021 Palliative care encounter Radicular pain of thoracic region Retinal hemorrhage, right eye Sepsis Thyroid cancer had sx Thyroid nodule Wound abscess left foot diabetic ulcer Surgical History Amputation of right great toe AVF (arteriovenous fistula) endovascular L; created 09/2020 H/O thyroidectomy Partial thyroidectomy History of cholecystectomy History of esophagogastroduodenoscopy (EGD) History of surgery Surgery to removed benign tumor from right vocal cord; History of surgery (~01/26/22) permcath placed--pt states her AV fistula was not working properly so permcath placed at that time by Dr. Strong @ [facility]--per pt on 02/19/22 she states her AV fistula is now working properly History of surgical procedure on eye proper using laser History of tooth extraction partial upper denture Hx of cataract surgery Bilateral Hx of tonsillectomy Previous section x2 Family History Mother , 70yo Diabetes Valvular heart disease Father , 74yo Diabetes Pneumonia Brother No problems noted. Brother No problems noted. Sister Kidney disease Dialysis patient Daughter No problems noted. Daughter Diabetes Other No family history of adverse response to anesthesia Social History Smoking Status: Never smoker Second Hand Exposure: No; Hx Alcohol Use: No Hx Substance Use: Yes Preferred Language: Honduran Communication Ability: Impaired Visual Impairment: No Limitations Hearing Ability: Normal Gullet Slitter Required: No Beliefs That Will Affect Care: None marital status: Current Living Situation: Spouse Current Living Situation Comment: Home w/ current occupational status: disabled How many Children do You have: 2 Feels Safe at Home: Yes caffeine: No during the past year weight has: remained stable Assistive Devices: Bedside Commode, Walker and Wheelchair Review of Systems A total of 10 systems reviewed and were otherwise negative Constitutional: + fever and + body aches Respiratory: no cough Cardiovascular: no chest pain Gastrointestinal: + nausea; no abdominal pain Integumentary: + wounds Physical Exam Vital Signs Vital Signs - 24 hr 04/18/22 19:00 04/18/22 19:05 04/18/22 19:30 Temperature 37.3 C Temperature Source Oral Pulse Rate 95 H Pulse Rate [Apical] 88 Respiratory Rate 18 18 Respiratory Effort / Characteristics Non-Labored Non-Labored Respiratory Depth Normal Normal Blood Pressure 95/50 L Blood Pressure [Right Arm] 85/44 L Blood Pressure Mean 65 Blood Pressure Mean [Right Arm] 57 Pulse Oximetry 87 L 97 99 Oxygen Delivery Method Room Air Nasal Cannula Nasal Cannula Oxygen Flow Rate 2 Sepsis Recent Fever Within 48 Hours Yes Sepsis New/Unexplained Change in Mental Status No Sepsis Action Taken by Nursing No Action Required GENERAL: Patient is awake alert in no acute distress patient is resting comfortably and showing no signs of anxiety; ill-appearing EYES: The conjunctivae are clear. The pupils are round and reactive. EARS, NOSE, MOUTH AND THROAT: The nose is without any evidence of any deformity. Mucous membranes are moist. Tongue is midline. NECK: The neck is nontender and supple. RESPIRATORY: Normal respiratory effort is noted there is no evidence of wheezing rhonchi or rales CARDIOVASCULAR: Regular rate and rhythm noted there no murmurs rubs or gallops normal S1 normal S2. GASTROINTESTINAL: The abdomen is soft. Abdomen is nontender. Mild distention there is no rebound rigidity guarding PELVIS: The Pelvis is stable. No tenderness to palpation is noted. BACK: No overt wounds MUSCULOSKELETAL/EXTREMITIES: Left BKA has an eschar in the anterior patellar re gion the distal wound is clean dry and intact without any dehiscence or purulence or erythema SKIN: There is no obvious evidence of any rash. There are no petechiae, pallor or cyanosis noted. Eschar noted in the left knee, see the nurses notes regarding sacral decubiti that have been reported; patient was rolled and she has a very large grade 4 sacral decub and another large grade 4 sacral decub in the lateral aspect of the left thigh with eschar there is no obvious drainage there is a significant hole present in the 1 sacral decubitus NEUROLOGIC: Patient is awake alert and oriented x3; patient is paraplegic,has no sensation in the left lower extremity Course Reevaluation(s) Reevaluation #1: This patient was started on 30 mL/kg of IV fluids, was given cefepime, Vanco, the physician events administrative assistant is treating this patient had texted me stating that the patient typically has a blood pressure around 90-100 has had a hemoglobin of 7 they had given Rocephin prior to arrival they were concerned due to the gram- negative bacilli and the need for IV antibiotics. Patient is a pancreatic cancer has neuroendocrine tumor and is paraplegic. Patient was also hypoxic. Patient was started on oxygen IV fluids cefepime and Vanco. Patient will be admitted, was found to have a hemoglobin that was below 7 will be transfused as well. Time: 19:59 Consultations Consultation #1: Katya hospitalist for admission Time: 19:59 Administered Medications Sodium Chloride (Nss 1000ml) 2,000 mls @ 999 mls/hr IV .Q2H1M ONE Stop: 04/18/22 21:05 Last Admin: 04/18/22 19:08 Dose: 999 mls/hr Documented By: KARINA Discontinued Medications Piperacillin Sod/Tazobactam Sod (Zosyn) 4.5 gm in 120 mls @ 240 mls/hr IV NOW ONE Stop: 04/18/22 19:24 Last Admin: 04/18/22 19:31 Dose: Not Given Documented By: KARINA Cefepime HCl (Maxipime) 2,000 mg in 20 mls @ 5 mls/min IV NOW STA; Protocol Stop: 04/18/22 19:08 Last Admin: 04/18/22 19:11 Dose: 5 mls/min Documented By: KARINA Critical Care Time Critical Care Time: Yes Total Critical Care Time: 35 I have personally spent greater than 35 minutes of critical care time in the direct management of this patient. This includes bedside care, interpretation of diagnostic studies, and testing, discussion with consultants, patient, and f amily members, and other required patient management activities. These minutes are in excess of all separately billable procedures. Medical Decision Making Medical Records Attestation: I reviewed the patient's medical records. Home Medications Current Medication List: was personally reviewed by me Laboratory Data Attestation: I reviewed the patient's lab results. Result diagrams: 04/18/22 19:02 04/18/22 19:02 Lab Results 04/18/22 04/18/22 04/18/22 Range/Units 19:02 19:02 19:02 WBC 14.30 H (4.8-10.8) K/ul RBC 1.93 L (3.93-5.22) M/uL Hgb 5.9 L* (12.0-16.0) g/dl Hct 19.2 L* (34.1-44.9) % MCV 99.5 (80.0-100.0) fL MCH 30.6 (25.0-34.0) pg MCHC 30.7 L (32.0-36.0) g/dL RDW Std Deviation 61.9 H (36.4-46.3) fL RDW Coeff of Padmini 17.2 H (11.5-14.5) % Plt Count 182 (130-400) K/uL MPV 9.8 (9.4-12.3) fL Immature Gran % (Auto) 1.0 % Neut % (Auto) 81.8 % Lymph % (Auto) 10.6 % [place] % (Auto) 6.1 % Eos % (Auto) 0.3 % Baso % (Auto) 0.2 % Neut # (Auto) 11.69 H (1.4-6.5) K/uL Lymph # (Auto) 1.52 (1.2-3.4) K/uL [place] # (Auto) 0.87 H (0.24-0.82) K/uL Eos # (Auto) 0.05 (0-0.50) K/uL Baso # (Auto) 0.03 (0-0.2) K/uL Immature Gran # (Auto) 0.14 H (0.00-0.02) K/uL Polychromasia 1+ Sodium 134 L (136-145) mmol/L Potassium 4.2 (3.5-5.1) mmol/L Chloride 99 (98-107) mmol/L Carbon Dioxide 25 (21-32) mmol/L Anion Gap 10 (3-11) BUN 47 H (6-23) mg/dl Creatinine 3.52 H (0.6-1.2) mg/dl Est Cr Clr Drug Dosing 17.6 ml/min Est GFR ( Amer) 16.0 ml/min Est GFR (Non-Af Amer) 13.8 ml/min BUN/Creatinine Ratio 13.4 (10-20) Glucose 178 H (70-99(Fasting)) mg/dl Lactate 1.8 (0.4-2.0) mmol/L Calcium 9.1 (8.5-10.1) mg/dl Magnesium 1.9 (1.7-2.4) mg/dl Total Bilirubin 0.6 (0.2-1.0) mg/dl Direct Bilirubin 0.3 H (0-0.2) mg/dl AST 162 H (13-39) U/L ALT 124 H (7-52) U/L Alkaline Phosphatase 176 H (34-104) U/L Troponin I High Sens 9.7 D (0-14) pg/ml Total Protein 7.4 (6.0-8.3) gm/dl Albumin 2.2 L (3.4-5.0) gm/dl Procalcitonin (0-0.5) ng/ml SARS-CoV-2, RNA, NAAT (NEGATIVE) 04/18/22 04/18/22 Range/Units 19:02 19:15 WBC (4.8-10.8) K/ul RBC (3.93-5.22) M/uL Hgb (12.0-16.0) g/dl Hct (34.1-44.9) % MCV (80.0-100.0) fL MCH (25.0-34.0) pg MCHC (32.0-36.0) g/dL RDW Std Deviation (36.4-46.3) fL RDW Coeff of Padmini (11.5-14.5) % Plt Count (130-400) K/uL MPV (9.4-12.3) fL Immature Gran % (Auto) % Neut % (Auto) % Lymph % (Auto) % [place] % (Auto) % Eos % (Auto) % Baso % (Auto) % Neut # (Auto) (1.4-6.5) K/uL Lymph # (Auto) (1.2-3.4) K/uL [place] # (Auto) (0.24-0.82) K/uL Eos # (Auto) (0-0.50) K/uL Baso # (Auto) (0-0.2) K/uL Immature Gran # (Auto) (0.00-0.02) K/uL Polychromasia Sodium (136-145) mmol/L Potassium (3.5-5.1) mmol/L Chloride (98-107) mmol/L Carbon Dioxide (21-32) mmol/L Anion Gap (3-11) BUN (6-23) mg/dl Creatinine (0.6-1.2) mg/dl Est Cr Clr Drug Dosing ml/min Est GFR ( Amer) ml/min Est GFR (Non-Af Amer) ml/min BUN/Creatinine Ratio (10-20) Glucose (70-99(Fasting)) mg/dl Lactate (0.4-2.0) mmol/L Calcium (8.5-10.1) mg/dl Magnesium (1.7-2.4) mg/dl Total Bilirubin (0.2-1.0) mg/dl Direct Bilirubin (0-0.2) mg/dl AST (13-39) U/L ALT (7-52) U/L Alkaline Phosphatase (34-104) U/L Troponin I High Sens (0-14) pg/ml Total Protein (6.0-8.3) gm/dl Albumin (3.4-5.0) gm/dl Procalcitonin 6.36 H (0-0.5) ng/ml SARS-CoV-2, RNA, NAAT NEGATIVE (NEGATIVE) Imaging Data Attestation: I personally reviewed and interpreted this imaging study as follows: My Impression: Chest x-ray interpreted by me left lower lobe atelectasis versus infiltrate no obvious pneumothorax normal mediastinum Radiologist's Impression: Chest X-Ray 04/18/22 18:47 XR chest 1V portable HISTORY: Sepsis COMPARISON: Chest 02/25/2022. FINDINGS: No pneumothorax. No pleural effusions. There are low lung volumes. The cardiac silhouette is borderline enlarged. No evidence for pulmonary edema. Small left basilar patchy airspace opacity is new from the prior study. The right lung is clear. IMPRESSION: There is a new small left basilar patchy airspace opacity. This likely represents a pneumonia. ACT 112: Negative or not required by law. Electronically signed by: Robson Nj M.D. 04/18/2022 7:15 PM ECG Data Attestation: I personally reviewed and interpreted this ECG as follows: Additional Comments: EKG interpreted by me normal sinus rhythm rate of 92 left ventricular hypertrop hy no obvious ST segment elevation or depression MDM Narrative Medical decision making differential diagnosis includes gram-negative sepsis, metabolic derangement, dehydration, urinary tract infection, infected wounds, infected surgical site, pneumonia, COVID. Plan is to give IV fluids antibiotics, initiate sepsis protocol, admit Patient was started on antibiotics, given fluid bolus, given oxygen. Patient will be transfused, will be admitted for sepsis anemia CKD pneumonia infected sacral decubiti. Impression & Plan Sepsis, Anemia, CKD (chronic kidney disease), Pneumonia, Sacral decubitus ulcer, stage IV Discharge Plan Visit Data Chief Complaint: Infection Stated Complaint: WOUNDS ON BUTTOCKS & LEGS, POSSIBLE SEPSIS ED Provider: Akin Mullen Discharge Problem: Sepsis, Anemia, CKD (chronic kidney disease), Pneumonia, Sacral decubitus ulcer, stage IV Patient Disposition: Admitted As Inpatient Forms Stand Alone Forms: My [facility] Prescriptions Prescriptions: No Action docusate sodium [Colace] 100 mg capsule 100 mg PO BID acetaminophen [Tylenol] 325 mg capsule 650 mg PO Q6H PRN midodrine 10 mg tablet 10 mg PO DAILY PRN Rx Instructions: do not give last dose of day after 6PM or within 4 hrs of bedtime ondansetron HCl 4 mg tablet 4 mg PO Q6H PRN polyethylene glycol 3350 17 gram/dose powder 34 g PO DAILY bisacodyl 10 mg suppository 10 mg MO DAILY PRN Fleet Enema 19-7 gram/118 mL enema 118 ml MO DAILY PRN lidocaine 5 % adhesive patch,medicated 1 patch topical DAILY Rx Instructions: leave on most painful area for up to 12 hrs B complex with C 20-folic acid 1 mg capsule 1 cap PO DAILY famotidine [Pepcid] 20 mg tablet 20 mg PO .Wed-Wed-Wed gabapentin 100 mg capsule 200 mg PO DAILY Humulin R Regular U-100 Insuln 100 unit/mL solution 1 sliding scale dose subcut USEASDIRECTD insulin glargine [Lantus U-100 Insulin] 100 unit/mL solution 10 unit subcut QPM vancomycin 1,000 mg recon soln 1 g IV .Wed-Wed-Wed Santyl 250 unit/gram ointment 1 applic topical DAILY levothyroxine 125 mcg tablet 125 mcg PO DAILYBB hydromorphone 8 mg tablet 15 mg PO Q3H PRN (Reason: Pain) methadone 10 mg tablet 15 mg PO Q8H Referrals Referrals: [facility] [Primary Care Provider] -
[2022-04-18] MEDS ORDERED: CEFEPIME 2,000 MG/20 ML VIAL IV STA (19:05)
[2022-04-18] MEDS ORDERED: SODIUM CHLORIDE 0.9% 1000ML 2,000 ML IV ONE (19:05)
--- NOTE | 2022-04-18 19:16 | XRay Report ---
XR chest 1V portable HISTORY: Sepsis COMPARISON: Chest 02/25/2022. FINDINGS: No pneumothorax. No pleural effusions. There are low lung volumes. The cardiac silhouette i s borderline enlarged. No evidence for pulmonary edema. Small left basilar patchy airspace opacity is new from the prior study. The right lung is clear. IMPRESSION: There is a new small left basilar patchy airspace opacity. This likely represents a pneumonia. ACT 112: Negative or not required by law. Electronically signed by: Robson Nj M.D. 04/18/2022 7:15 PM
[2022-04-18 19:37] LABS: Hematocrit (blood only) 19.2 % (34.1-44.9); Hemoglobin 5.9 g/dl (12.0-16.0); Mean Corpuscular Hemoglobin 30.6 pg (25.0-34.0); Mean Corpuscular Hgb Conc 30.7 g/dL (32.0-36.0); Mean Corpuscular Volume 99.5 fL (80.0-100.0); Mean Platelet Volume 9.8 fL (9.4-12.3); Platelet Count 182 K/uL (130-400); RDW Coefficient of Variation 17.2 % (11.5-14.5); RDW Standard Deviation 61.9 fL (36.4-46.3); Red Blood Count 1.93 M/uL (3.93-5.22)
[2022-04-18 19:39] LABS: Albumin Level 2.2 gm/dl (3.4-5.0); BUN Creatinine Ratio 13.4 (10-20); Basophils # (auto) 0.03 K/uL (0-0.2); Basophils % (auto) 0.2 %; Bilirubin Direct 0.3 mg/dl (0-0.2); Bilirubin,Total 0.6 mg/dl (0.2-1.0); Calcium 9.1 mg/dl (8.5-10.1); Creatinine Clr Calc Pharmacy 17.6 ml/min; Eosinophils # (auto) 0.05 K/uL (0-0.50); Eosinophils % (auto) 0.3 %; Est GFR (Non-African American) 13.8 ml/min; Immature Granulocytes # (auto) 0.14 K/uL (0.00-0.02); Lymphocytes # (auto) 1.52 K/uL (1.2-3.4); Lymphocytes % (auto) 10.6 %; Magnesium 1.9 mg/dl (1.7-2.4); Monocytes # (auto) 0.87 K/uL (0.24-0.82); Monocytes % (auto) 6.1 %; Neutrophils # (auto) 11.69 K/uL (1.4-6.5); Neutrophils % (auto) 81.8 %; Polychromasia 1+; Potassium 4.2 mmol/L (3.5-5.1); Total Protein 7.4 gm/dl (6.0-8.3)
[2022-04-18 19:43] LABS: Troponin I High Sensitivity 9.7 pg/ml (0-14)
[2022-04-18] MEDS ORDERED: SODIUM CHLORIDE 0.9% 250 ML IV PRN ×2 (19:53→21:07)
[2022-04-18 22:32] LABS: Appearance Urine Cloudy (Clear); Bacteria Urine Automated Negative (Negative); Bilirubin Urine Negative (Negative); Blood Urine 2+ (Negative); Color Urine Yellow; Epithelial Cell Urine Auto 20-30 /lpf (0-5); Glucose Urine UA Trace (Negative); Ketones Urine Negative (Negative); Leukocyte Esterase Urine 2+ (Negative); Nitrite Urine Negative (Negative); Protein Urine 3+ (Negative); Specific Gravity Urine 1.016 (1.000-1.030); Urobilinogen Urine Negative (Negative); WBC Urine Automated >30 /hpf (0-5); pH Urine 8.5 (4.5-7.5)
[2022-04-18 22:42] LABS: RBC Urine Automated 0-4 /hpf (0-4)
[2022-04-18] MEDS ORDERED: MIDODRINE HCL 10 MG TAB PO STA (22:47)
[2022-04-18] MEDS ORDERED: SODIUM CHLORIDE 0.9% 1000ML 250 ML IV ONE (23:14)
[2022-04-18] MEDS ORDERED: STAT IV Infusion **Titration per Protocol STA (23:14)
[2022-04-18] MEDS: NOREPINEPHRINE/D5W 4 MG/250 ML PLCT IV SCH (23:33)
--- NOTE | 2022-04-18 23:47 | Critical Care Consultation ---
Date of Consultation April 18, 2022 Assessment & Plan (1) Sepsis: (2) Anemia: (3) CKD (chronic kidney disease): (4) Sacral decubitus ulcer, stage IV: (5) Neuroendocrine tumor: (6) DMII (diabetes mellitus, type 2): (7) Chronic narcotic dependence: Plan Reason Critically Ill: 56 YOF with neuroendocrine tumor with metastasis, paraplegia, sacral wound ulcerations, left BKA, and dialysis patient. Admitted to ICU for low hemoglobin/hypotension, sepsis with reported GNB in blood from [facility]. Patient was resuscitated with 30ml/kg in the EMD with adequate response in BP however had further episodes of hypotension. She was started on PRBC but was concern for reaction with increase in temperature and decrease in blood pressure 1/2 through transfusion. Patient will be admitted to ICU for vasopressor support and continued resuscitation. Central Access will be needed as well as well as arterial blood pressure monitoring for significant hypotension. 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, opiod misuse, chronic pain from metastatic disease CAM ICU: Negative - Turn and reposition q2 hours - continue methadone, hydromorphone, gabapentin - Supportive care Cardiac - Severe septic shock, HfpEF Grade I diastolic dysfunction (chronic not acute) - Shock- likely severe sepsis at this time from sacral decubitus wounds- incontinent of stool - Lactate increased to 2.4 - Appropriate response to Levophed once transitioned to central access - Wean down pressor support as able, random cortisol 25- hold on stress dose steroids unless becomes refractory - CT/AP- eval for occult blood loss Respiratory - No acute needs - oxygen support as needed to maintain spo2 >94% GI - Elevated LFTs - likely secondary to septic shock- follow - INR pending - CT A/P pending RENAL/LYTES - ESRD on dialysis, anemia, - Electrolytes acceptable, HCO3 25, volume status acceptable- Nephrology consulted - Defer to nephrology for RBC stimulation - Does make urine - Liz to gravity - keep in place while on vasopressor support and to keep sacrum wounds dry ENDO - DMII on insulin - Hyperglycemic protocol HEME - Anemia as above - Normocytic/Normochromic - Await for transfusion reaction labs to return- transfuse 1-2 units PRBC when able - Transfuse to HGB >7.0 - Anemia at this time does not appear to be acute blood loss and likely chronic with her ESRD exacerbated by sepsis Skin: Multiple decubitus ulcerations stage IV to unstageable - Surgical consultation for debridement evaluation/possible diversion of stool - Turn and reposition q2 hours - Will need to keep area clean and dry- incontinent of stool with paraplegia- defer to surgery for discussion regarding diversion - Low air loss mattress in place - Dietary consultation- high protein for wound healing as able ID - Severe sepsis - elevated WBC, elevated PCT, increasing lactate- source at this time is likely from her multiple decubitus ulcerations - history of MRSA and osteo in past with Left BKA- Eschar on left knee - Will attempt to get info from [facility] regarding reported GNB bacteremia - Await blood and urine cultures LINES/IV ACCESS - Central Line right Femoral vein, PIV x1, Right radial arterial line, Liz catheter Continue use of these lines DVT PROPHYLAXIS - SCDs, hold chemprophy at this time until acute bleeding is ruled out DISPO: ICU while on vasopressor support I have personally spent 50 minutes of critical care time in the direct management of this patient. This is a life/limb threatening event. This includes time spent evaluating patient, direct bedside care, chart review, placing orders, interpretation of diagnostic studies, discussion with consultants, patient, and family members, as well as other required patient management activities. This time is exclusive of all separately billable procedures, and separate from and in addition to any other critical care service time. Thank you for allowing us to participate in the care of this patient. Please refer to my attending physician's documentation for any further recommendations. History of Present Illness Reason for Consultation: Refractory Hypotension, shock, requiring vasopressors Requesting Physician: Lucio Orourke MD Attending Physician: Hugo Parmar MD History of Present Illness 56 YOF with medical problem list of: Metastatic Neuroendocrine tumor with spinal lesions and L4 fracture resulting in paraplegia- non-surgical candidae, osteomyelitis, sacral wounds (multiple unstageable with eschar), left BKA (with eschar to left knee present on admission), Opiod misuse, Dialysis dependant renal failure (MWF), MRSA, DM. Patient is resident at [facility] and presents to the EMD today for reported lethargy, diaphoresis, and concern for infection. Patient reports that she just felt more tired today, and noted that she was constantly drenched in sweat and feeling hot, but denies chills. She reports that she then asked to go back to her bed, and felt worse in bed with feeling more warm and dizzy. She notes that her bowel movements have been normal and no abdominal pain or nausea/vomiting. She states that she did get a unit of blood at Dialysis this week on Wednesday. EMD makes note of blood cultures from [facility] with GNB, she was hypotensive on arrival and initially responded to fluid resuscitation at 30ml/kg. She then became hypotensive as well as identifying low HGB to 5.5. She was given PRBC in the EMD and following approx 1/2 unit transfused, she was noted to have 1 degree raise in her temperature and worsening of her hypotension, blood was stopped and transfusion reaction workup initiated. ICU was consulted following this. Patient was evaluated in the EMD and noted to be hypotensive to the 70s/40s, warm, mentating well with good peripheral pulses. Levophed was ordered prior to leaving EMD. 250ml additional crystalloid was ordered to flush her line following possible reaction. On arrival to ICU patient was consented for arterial line and central line. Following femoral central line placement and use of this line her Levophed was transitioned over with immediate response and ability to down-titrate her vasopressor. Vasopressin and Hydrocortisone IV was ordered while performing above procedures secondary to refractory severe hypotension but not required once line obtained. Patient likely with severe septic sock from her underlying sacral wounds and reported bacteremia. Will obtain CT scan of abdomen/pelvis eval for any hidden bleeding or infection- however will be without contrast. Zosyn and MRSA coverage with Vancomycin will be initiated. She is no longer a candidate for palliative radiation therapy, follows with [facility] Haematology/Oncology. Allergies Allergy/AdvReac Type Severity Reaction Status Date / Time gabapentin AdvReac Severe Tremor Verified 04/18/22 22:49 Iodinated Contrast Media AdvReac Severe Patient Verified 04/18/22 20:57 has kidney failure omeprazole AdvReac Severe Increased Verified 04/18/22 20:57 her acid reflux MICHAEL Inhibitors AdvReac Unknown Intolerance Verified 04/18/22 20:57 Home Medications Medication Instructions Recorded Confirmed Type levothyroxine 125 mcg tablet 125 mcg PO DAILYBB 03/15/21 04/18/22 History acetaminophen 325 mg capsule 650 mg PO Q6H PRN Pain 04/07/22 04/18/22 History (Tylenol) collagenase clostridium histo. 250 1 applic topical DAILY 04/07/22 04/18/22 History unit/gram topical ointment (Santyl) famotidine 20 mg tablet (Pepcid) 20 mg PO .Wed-Wed-Wed04/07/22 04/18/22 History gabapentin 100 mg capsule 200 mg PO DAILY 04/07/22 04/18/22 History insulin glargine 100 unit/mL 10 unit subcut QPM 04/07/22 04/18/22 History subcutaneous solution (Lantus U-100 Insulin) insulin regular human 100 unit/mL 1 sliding scale dose subcut 04/07/22 04/18/22 History injection solution (Humulin R USEASDIRECTD Regular U-100 Insulin) lidocaine 5 % topical patch 1 patch topical DAILY 04/07/22 04/18/22 History methadone 10 mg tablet 10 mg PO Q8H 04/07/22 04/18/22 History ondansetron HCl 4 mg tablet 4 mg PO Q6H PRN Nausea 04/07/22 04/18/22 History polyethylene glycol 3350 17 34 g PO DAILY 04/07/22 04/18/22 History gram/dose oral powder vitamin B complex and vitamin C 1 cap PO DAILY 04/07/22 04/18/22 History no.20-folic acid 1 mg capsule Ceftriaxone Ivpb See Rx Instructions .Route .COMPLEX 04/18/22 04/18/22 History hydromorphone 4 mg tablet 8 mg PO .Q3HR PRN Pain 04/18/22 04/18/22 History methadone 5 mg tablet 5 mg PO Q8 04/18/22 04/18/22 History midodrine 5 mg tablet 10 mg PO DAILY PRN .. 04/18/22 04/18/22 History sennosides 8.6 mg-docusate sodium 2 tab-cap PO BID 04/18/22 04/18/22 History 50 mg tablet (Senna Plus) vitamin B complex-vitamin C-folic 1 tab PO DAILY 04/18/22 04/18/22 History acid 0.8 mg tablet (Ira-Umer) Patient History Medical History Acid reflux Anemia Chronic narcotic dependence Diabetes Diabetic retinopathy ESRD (end stage renal disease) On dialysis esdras @ [facility] H/O vocal cord paralysis Right side Hypertension MRSA bacteremia 2018; unclear if vertebral or R diabetic foot wound source 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---only had radiation treatments Osteomyelitis of left foot chronic 2020 and 2021 Palliative care encounter Radicular pain of thoracic region Retinal hemorrhage, right eye Sepsis Thyroid cancer had sx Thyroid nodule Wound abscess left foot diabetic ulcer Surgical History Amputation of right great toe AVF (arteriovenous fistula) endovascular L; created 09/2020 H/O thyroidectomy Partial thyroidectomy History of cholecystectomy History of esophagogastroduodenoscopy (EGD) History of surgery Surgery to removed benign tumor from right vocal cord; History of surgery (~01/26/22) permcath placed--pt states her AV fistula was not working properly so permcath placed at that time by Dr. Strong @ [facility]--per pt on 02/19/22 she states her AV fistula is now working properly History of surgical procedure on eye proper using laser History of tooth extraction partial upper denture Hx of cataract surgery Bilateral Hx of tonsillectomy Previous section x2 Family History Mother , 70yo Diabetes Valvular heart disease Father , 74yo Diabetes Pneumonia Brother No problems noted. Brother No problems noted. Sister Kidney disease Dialysis patient Daughter No problems noted. 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 Required: No Beliefs That Will Affect Care: None marital status: Current Living Situation: Rehab Current Living Situation Comment: Pt currently residing at [facility] current occupational status: disabled How many Children do You have: 2 Other Information That Helps Us Care for You: No Feels Safe at Home: Yes Safety Concerns: Feels Safe At This Time caffeine: No during the past year weight has: remained stable Assistive Devices: Brace/Splint/Immobilizer and Wheelchair Review of Systems Review of Systems: REVIEW OF SYSTEMS: Constitutional: No fever, sweats or chills Eyes: No diplopia, no worsening or blurred vision ENT: normal hearing, no trouble swallowing Respiratory: No cough, sputum, dyspnea at rest or on exertion Cardiovascular: (+) LUE dialysis fisula, No chest pain, tightness or palpitations Abdomen: No pain, nausea, vomiting, diarrhea or constipation Musculoskeletal: (+) chronic back pain Neurologic: (+) paraplegic Psychiatric: No anxiety or depression Skin: (+) decubitus ulcerations Physical Exam Physical Exam: PHYSICAL EXAM: General: awake, alert, no apparent distress Head: Normocephalic, atraumatic ENT: PERRLA, EOMI, no pharyngeal exudate, mucous membranes dry Neuro: AAO x 3, speech clear and appropriate, no sensation from abdomen down- paplegic from metastatic diesease Chest: equal rise and fall of the chest, no accessory muscle use, no heaves or thrills, decreased in bases, on room air, Cardiac: Regular rate and rhythm, telemetry reviewed- NSR, skin warm dry, cap refill <3 seconds, peripheral pulses +2 no JVD, no edema, warm GI: NABS x 4 quadrants, soft, nontender to palpation, no rebound, guarding or tenderness : catheter in place draining cloudy urine Psych: Normal mood and affect Skin: present on admission with multiple sacral ulcers unstageable and stage IV, eschar to left sacrum wounds, and left knee Results & Data Results & Data ([facility]) Vital Signs (Past 12 Hours) Vital Signs Temp Pulse Pulse Resp BP BP Pulse Ox 04/18/22 23:32 37.2 C 92 H 18 81/41 L 100 04/18/22 23:15 36.9 C 92 H 18 76/38 L 100 04/18/22 23:08 95 H 18 73/43 L 100 04/18/22 22:50 37.8 C H 94 H 18 77/39 L 100 04/18/22 22:27 37.2 C 96 H 18 75/39 L 100 04/18/22 22:12 37.3 C 101 H 18 81/43 L 100 04/18/22 21:32 108 H 18 113/75 100 04/18/22 21:54 36.9 C 04/18/22 21:54 105 H 20 106/56 L 100 04/18/22 21:06 36.8 C 109 H 20 130/63 98 04/18/22 21:04 111 H 130/63 97 04/18/22 20:00 100 04/18/22 20:00 97/56 L 04/18/22 19:30 99 04/18/22 19:30 88 18 85/44 L 99 04/18/22 19:05 97 04/18/22 19:00 37.3 C 95 H 18 95/50 L 87 L O2 Del Method O2 Flow Rate 04/18/22 23:32 Nasal Cannula 2 04/18/22 23:15 Nasal Cannula 2 04/18/22 23:08 Nasal Cannula 2 04/18/22 22:50 2 04/18/22 22:27 2 04/18/22 22:12 2 04/18/22 21:32 Nasal Cannula 2 04/18/22 21:54 04/18/22 21:54 2 04/18/22 21:06 Nasal Cannula 2 04/18/22 21:04 Nasal Cannula 2 04/18/22 20:00 2 04/18/22 20:00 04/18/22 19:30 04/18/22 19:30 Nasal Cannula 2 04/18/22 19:05 Nasal Cannula 04/18/22 19:00 Room Air Laboratory Results Abnormal lab results 04/18/22 04/18/22 04/18/22 Range/Units 19:02 19:02 19:02 WBC 14.30 H (4.8-10.8) K/ul RBC 1.93 L (3.93-5.22) M/uL Hgb 5.9 L* (12.0-16.0) g/dl Hct 19.2 L* (34.1-44.9) % MCHC 30.7 L (32.0-36.0) g/dL RDW Std Deviation 61.9 H (36.4-46.3) fL RDW Coeff of Padmini 17.2 H (11.5-14.5) % Neut # (Auto) 11.69 H (1.4-6.5) K/uL [place] # (Auto) 0.87 H (0.24-0.82) K/uL Immature Gran # (Auto) 0.14 H (0.00-0.02) K/uL Sodium 134 L (136-145) mmol/L BUN 47 H (6-23) mg/dl Creatinine 3.52 H (0.6-1.2) mg/dl Glucose 178 H (70-99(Fasting)) mg/dl Lactate (0.4-2.0) mmol/L Direct Bilirubin 0.3 H (0-0.2) mg/dl AST 162 H (13-39) U/L ALT 124 H (7-52) U/L Alkaline Phosphatase 176 H (34-104) U/L Albumin 2.2 L (3.4-5.0) gm/dl Procalcitonin 6.36 H (0-0.5) ng/ml Urine Appearance (Clear) Urine pH (4.5-7.5) Urine Protein (Negative) Urine Glucose (UA) (Negative) Urine Blood (Negative) Ur Leukocyte Esterase (Negative) Urine WBC (Auto) (0-5) /hpf Urine RBC (Auto) (0-4) /hpf U Hyaline Cast (Auto) (0-5) /lpf U Epithel Cells (Auto) (0-5) /lpf Crossmatch 04/18/22 04/18/22 04/18/22 Range/Units 19:03 22:04 23:40 WBC (4.8-10.8) K/ul RBC (3.93-5.22) M/uL Hgb (12.0-16.0) g/dl Hct (34.1-44.9) % MCHC (32.0-36.0) g/dL RDW Std Deviation (36.4-46.3) fL RDW Coeff of Padmini (11.5-14.5) % Neut # (Auto) (1.4-6.5) K/uL [place] # (Auto) (0.24-0.82) K/uL Immature Gran # (Auto) (0.00-0.02) K/uL Sodium (136-145) mmol/L BUN (6-23) mg/dl Creatinine (0.6-1.2) mg/dl Glucose (70-99(Fasting)) mg/dl Lactate (0.4-2.0) mmol/L Direct Bilirubin (0-0.2) mg/dl AST (13-39) U/L ALT (7-52) U/L Alkaline Phosphatase (34-104) U/L Albumin (3.4-5.0) gm/dl Procalcitonin (0-0.5) ng/ml Urine Appearance Cloudy A (Clear) Urine pH 8.5 H (4.5-7.5) Urine Protein 3+ H (Negative) Urine Glucose (UA) Trace H (Negative) Urine Blood 2+ H 2+ H (Negative) Ur Leukocyte Esterase 2+ H (Negative) Urine WBC (Auto) >30 H (0-5) /hpf Urine RBC (Auto) >30 H (0-4) /hpf U Hyaline Cast (Auto) 5-10 H (0-5) /lpf U Epithel Cells (Auto) 20-30 H (0-5) /lpf Crossmatch See Detail 04/19/22 04/19/22 Range/Units 00:30 00:30 WBC (4.8-10.8) K/ul RBC (3.93-5.22) M/uL Hgb (12.0-16.0) g/dl Hct (34.1-44.9) % MCHC (32.0-36.0) g/dL RDW Std Deviation (36.4-46.3) fL RDW Coeff of Padmini (11.5-14.5) % Neut # (Auto) (1.4-6.5) K/uL [place] # (Auto) (0.24-0.82) K/uL Immature Gran # (Auto) (0.00-0.02) K/uL Sodium (136-145) mmol/L BUN (6-23) mg/dl Creatinine (0.6-1.2) mg/dl Glucose (70-99(Fasting)) mg/dl Lactate 2.4 H* (0.4-2.0) mmol/L Direct Bilirubin (0-0.2) mg/dl AST (13-39) U/L ALT (7-52) U/L Alkaline Phosphatase (34-104) U/L Albumin (3.4-5.0) gm/dl Procalcitonin 11.36 H (0-0.5) ng/ml Urine Appearance (Clear) Urine pH (4.5-7.5) Urine Protein (Negative) Urine Glucose (UA) (Negative) Urine Blood (Negative) Ur Leukocyte Esterase (Negative) Urine WBC (Auto) (0-5) /hpf Urine RBC (Auto) (0-4) /hpf U Hyaline Cast (Auto) (0-5) /lpf U Epithel Cells (Auto) (0-5) /lpf Crossmatch Diagnostic Findings Chest X-Ray 04/18/22 18:47 XR chest 1V portable HISTORY: Sepsis COMPARISON: Chest 02/25/2022. FINDINGS: No pneumothorax. No pleural effusions. There are low lung volumes. The cardiac silhouette is borderline enlarged. No evidence for pulmonary edema. Small left basilar patchy airspace opacity is new from the prior study. The right lung is clear. IMPRESSION: There is a new small left basilar patchy airspace opacity. This likely represents a pneumonia. ACT 112: Negative or not required by law. Electronically signed by: Robson Nj M.D. 04/18/2022 7:15 PM Medications Administered Home Medications levothyroxine 125 mcg tablet 125 mcg PO DAILYBB 03/15/21 [History Confirmed 04/18/22] acetaminophen 325 mg capsule (Tylenol) 650 mg PO Q6H PRN Pain 04/07/22 [History Confirmed 04/18/22] collagenase clostridium histo. 250 unit/gram topical ointment (Santyl) 1 applic topical DAILY 04/07/22 [History Confirmed 04/18/22] famotidine 20 mg tablet (Pepcid) 20 mg PO .Mon-Wed-Wed04/07/22 [History Confirmed 04/18/22] gabapentin 100 mg capsule 200 mg PO DAILY 04/07/22 [History Confirmed 04/18/22] insulin glargine 100 unit/mL subcutaneous solution (Lantus U-100 Insulin) 10 unit subcut QPM 04/07/22 [History Confirmed 04/18/22] insulin regular human 100 unit/mL injection solution (Humulin R Regular U-100 Insulin) 1 sliding scale dose subcut USEASDIRECTD 04/07/22 [History Confirmed 04/18/22] lidocaine 5 % topical patch 1 patch topical DAILY 04/07/22 [History Confirmed 04/18/22] methadone 10 mg tablet 10 mg PO Q8H 04/07/22 [History Confirmed 04/18/22] ondansetron HCl 4 mg tablet 4 mg PO Q6H PRN Nausea 04/07/22 [History Confirmed 04/18/22] polyethylene glycol 3350 17 gram/dose oral powder 34 g PO DAILY 04/07/22 [History Confirmed 04/18/22] vitamin B complex and vitamin C no.20-folic acid 1 mg capsule 1 cap PO DAILY 04/07/22 [History Confirmed 04/18/22] Ceftriaxone Ivpb See Rx Instructions .Route .COMPLEX 04/18/22 [History Confirmed 04/18/22] hydromorphone 4 mg tablet 8 mg PO .Q3HR PRN Pain 04/18/22 [History Confirmed 04/18/22] methadone 5 mg tablet 5 mg PO Q8 04/18/22 [History Confirmed 04/18/22] midodrine 5 mg tablet 10 mg PO DAILY PRN .. 04/18/22 [History Confirmed 04/18/22] sennosides 8.6 mg-docusate sodium 50 mg tablet (Senna Plus) 2 tab-cap PO BID 04/18/22 [History Confirmed 04/18/22] vitamin B complex-vitamin C-folic acid 0.8 mg tablet (Ira-Umer) 1 tab PO DAILY 04/18/22 [History Confirmed 04/18/22] Active Medications Acetaminophen (Acetaminophen 325 Mg Tab) 650 mg PO Q4H PRN PRN Reason: Pain or Fever Stop: 05/18/22 23:52 Collagenase (Collagenase Oint 30 Gm Tube) 1 appln TOP DAILY KIRT Stop: 05/19/22 08:59 Dextrose (Dextrose 50% 50 Ml Syringe) 25 - 50 ml IV UD PRN; Protocol PRN Reason: Hypoglycemia Protocol Stop: 05/19/22 00:59 Famotidine (Famotidine 20 Mg Tab) 20 mg PO MoWeFr@0900 KIRT Stop: 05/20/22 08:59 Gabapentin (Gabapentin 100 Mg Cap) 200 mg PO DAILY KIRT Stop: 05/19/22 08:59 Glucagon (Glucagon For Inj 1 Mg Vial) 1 mg IM UD PRN; Protocol PRN Reason: Hypoglycemia Protocol Stop: 05/19/22 00:59 Glucose (Glucose 40% Gel 15 Gm Tube) 15 - 30 gm PO UD PRN; Protocol PRN Reason: Hypoglycemia Protocol Stop: 05/19/22 00:59 Glucose (Glucose 10 Tab/Tube) 4 - 8 tab PO UD PRN; Protocol PRN Reason: Hypoglycemia Protocol Stop: 05/19/22 00:59 Hydromorphone HCl (Hydromorphone Hcl 2 Mg Tab) 8 mg PO Q3H PRN PRN Reason: Pain Stop: 05/03/22 00:52 Sodium Chloride (Nss) 250 mls @ 15 mls/hr IV .[id number] PRN PRN Reason: For Transfusion Duration Stop: 04/19/22 07:07 Norepinephrine Bitartrate (Levophed/D5w) 4 mg in 250 mls @ 13.294 mls/hr IV .[id number] KIRT; Protocol Stop: 05/18/22 23:14 Last Admin: 04/18/22 23:33 Dose: 0.05 mcg/kg/min, 13.3 mls/hr Piperacillin Sod/Tazobactam (Sod 4.5 gm/ Dextrose) 120 mls @ 30 mls/hr IV Q12H KIRT; Protocol Stop: 05/02/22 23:52 Last Admin: 04/19/22 01:39 Dose: 30 mls/hr Promethazine HCl 12.5 mg/ (Sodium Chloride) 50.5 mls @ 202 mls/hr IV Q6H PRN PRN Reason: Nausea And Vomiting Stop: 05/18/22 23:52 Vasopressin 20 units/ Sodium (Chloride) 101 mls @ 9.09 mls/hr IV .Q11H7M KIRT; Protocol Stop: 05/19/22 00:44 Last Admin: 04/19/22 01:54 Dose: Not Given Insulin Aspart (Insulin Aspart Per Unit) 0 units SC ACHS [facility] Stop: 05/19/22 07:29 Insulin Glargine (Lantus Per Unit Charge) 10 units SQ QPM KIRT Stop: 05/19/22 20:59 Levothyroxine Sodium (Levothyroxine Sodium 125 Mcg Tablet) 125 mcg PO DAILYBB [facility] Stop: 05/19/22 06:29 Lidocaine (Lidocaine 5% 1 Patch) 1 patch TD DAILY KIRT Stop: 05/19/22 08:59 Methadone HCl (Methadone Hcl 10 Mg Tab) 10 mg PO Q8 [facility] Stop: 05/03/22 05:59 Methadone HCl (Methadone Hcl 5 Mg Tab) 5 mg PO Q8 [facility] Stop: 05/03/22 05:59 Midodrine (Midodrine Hcl 10 Mg Tab) 10 mg PO DAILY PRN PRN Reason: Hypotension Stop: 05/18/22 23:52 Miscellaneous (Remove Lidoderm Patch) 1 each N/A DAILY@2100 KIRT Stop: 05/19/22 20:59 Miscellaneous (Carbohydrates For Hypoglycemia ) 15 - 30 gm PO UD PRN PRN Reason: Hypoglycemia Treatment Stop: 05/19/22 00:59 Miscellaneous Information (Vancomycin Consult Active) 1 each N/A UD PRN PRN Reason: Consult Stop: 05/18/22 18:54 Nitroglycerin (Nitroglycerin Sl 0.4 Mg/Tab Tab) 0.4 mg SL UD PRN PRN Reason: Chest Pain Stop: 05/18/22 23:52 Ondansetron HCl (Ondansetron 4 Mg Od Tab) 4 mg PO Q6H PRN PRN Reason: Nausea And Vomiting Stop: 05/19/22 00:47 Polyethylene Glycol (Polyethylene (Miralax) 17 Gm Pack) 34 gm PO DAILY KIRT Stop: 05/19/22 08:59 Senna/Docusate Sodium (Docusate Sodium/Senna 50/8.6mg Tab) 2 tab PO BID KIRT Stop: 05/19/22 08:59 Vitamin B Complex/Folic Acid (Nephrocaps) 1 cap PO DAILY [facility] Stop: 05/19/22 08:59 ECG Additional Comments: Normal sinus rhythm Moderate voltage criteria for LVH, may be normal variant Borderline ECG When compared with ECG of 23-JAN-2022 09:29, No significant change was found Coding Level of Care Code Critical Care 1st 30-74 mins Diagnoses Sepsis A41.9 Anemia D64.9 CKD (chronic kidney disease) N18.9 Sacral decubitus ulcer, stage IV L89.154 Neuroendocrine tumor D3A.8 DMII (diabetes mellitus, type 2) E11.9 Chronic narcotic dependence F11.20
[2022-04-18] MEDS ORDERED: MIDODRINE HCL 10 MG TAB PO PRN (23:53)
[2022-04-18] MEDS ORDERED: PROMETHAZINE HCL 12.5 MG in SODIUM CHLORIDE 0.9% 50 ML IV PRN (23:53)
[2022-04-18] MEDS ORDERED: POLYETHYLENE (MIRALAX) 17 GM PACK PO PRN (23:53)
[2022-04-18] MEDS ORDERED: ACETAMINOPHEN 325 MG TAB PO PRN (23:53)
[2022-04-18] MEDS ORDERED: NITROGLYCERIN SL 0.4 MG/TAB TAB SL PRN (23:53)
[2022-04-19] MEDS ORDERED: STAT IV Infusion **Titration per Protocol STA (00:42)
[2022-04-19] MEDS ORDERED: HYDROCORTISONE SOD 100 MG in SYRINGE 0 ML IV STA (00:46)
[2022-04-19] MEDS ORDERED: ONDANSETRON 4 MG OD TAB PO PRN (00:48)
[2022-04-19 00:52] LABS: Blood Urine 2+ (Negative); RBC Urine Automated >30 /hpf (0-4)
[2022-04-19] MEDS ORDERED: GLUCOSE 10 TAB/TUBE PO PRN (01:00)
[2022-04-19] MEDS ORDERED: CARBOHYDRATES FOR HYPOGLYCEMIA PO PRN (01:00)
[2022-04-19] MEDS ORDERED: PIPERACILLIN/TAZOBACTAM 4.5 GM in DEXTROSE 5% 100 ML IV ONE (01:00)
[2022-04-19] MEDS ORDERED: DEXTROSE 50% 50 ML SYRINGE IV PRN (01:00)
[2022-04-19] MEDS ORDERED: GLUCOSE 40% GEL 15 GM TUBE PO PRN (01:00)
[2022-04-19] MEDS ORDERED: GLUCAGON FOR INJ 1 MG VIAL IM PRN (01:00)
--- NOTE | 2022-04-19 01:11 | Procedure Note ---
Procedure Note Date of Service April 18, 2022 Note ARTERIAL LINE PROCEDURE NOTE: Procedure: Arterial Line Placement APC: Gordy Alicia Attending: Dr. Bazzi Indication: Monitoring on Pressors Anesthesia: Lidocaine 1% [x]Consent obtained as delegated to me by Dr. Bazzi. Indication, risks, and benefits were explained at length to include but not limited to- infection, thrombus, pain, damage to artery and surrounding structures, need for further procedures. This was signed, witnessed and placed on the chart prior to procedure. A time-out was completed verifying correct patient, procedure, site, positioning. Allens test was performed to ensure adequate perfusion. Patients Right wrist was prepped and draped in the usual sterile fashion. Ultrasound guidance was used to hris developer vessel prior to and then direct visualization to aid needle placement. A 20g Arrow arterial line was introduced into the right radial artery. Following brisk flash of bright red blood, the wire was advanced without resistance and the catheter was threaded. The needle was removed with appropriate pulsatile blood return. Good waveform was observed. The patient tolerated the procedure well. Blood Loss: Minimal. Attempts x1, line was sutured in place. Complications: None Procedural Ultrasound Guidance: Procedure Date: Indication: Hemodynamic monitoring, vasopressor titration, shock Attending: Dr. Bazzi Artery Identified: YES Complications: NONE Patient tolerated procedure: WELL Images were not saved to the record secondary to urgency of procedure with low BP and MAPS Coding CPT Codes Tubes, Drains, and Vasc Access - Tubes, Drains, and Vasc Access: [id number] Place Catheter In Artery ([id number]) Tubes, Drains, and Vasc Access - Tubes, Drains, and Vasc Access: [id number] Ultrasound Guidance For Vascular ([id number]) [facility] [place] Codes (Charges) Tubes, Drains, and Vasc Access Procedure 1: Tubes, Drains, and Vasc Access: [id number] Place Catheter In Artery Procedure 2: Tubes, Drains, and Vasc Access: [id number] Ultrasound Guidance For Vascular
--- NOTE | 2022-04-19 01:23 | Procedure Note ---
Procedure Note Date of Service April 19, 2022 Note FEMORAL CENTRAL LINE PROCEDURE NOTE: Procedure: Central Line Placement with direct ultrasound guidance APC: Gordy FLYNN ([facility]) Attending: Jluis HERNANDEZ Indication: Central Drug Administration, Poor Venous Access, Multiple Lab Draws Necessary, etc. Anesthesia: [x]None [x]Consent was obtained as delegated to me by Dr. Bazzi. Indication, risks, and benefits were explained at length to include but not limited to: Infection, Pain, Damage to vessels or surrounding structure, need for further procedures, inadvertent placement into artery. The consent was signed, witnessed and placed on the chart prior to procedure. A time-out was completed verifying correct patient, procedure, site, positioning, and implants(s) or special equipment if applicable. Femoral access was chosen as patient is a dialysis patient with fistula in left arm and to preserver further upper extremity access points. Patients right femoral was cleansed and draped in the typical sterile fashion using Chloraprep. The inguinal ligament was palpated. The Right Femoral Vein and Femoral Artery were identified using ultrasound below the inguinal ligament. The femoral vein was cannulated under direct ultrasound guidance using an introducer needle on a syringe. Good venous blood return was maintained prior to removal of syringe from introducer needle. Using Seldinger Technique, a guide wire was advanced through the introducer needle without resistance. The introducer needle was removed and ultrasound images were viewed real time of the guide wire within the Internal Jugular Vein prior to dilation. A small incision was made in penetrating fashion at the guide wire insertion site utilizing an 11 blade scalpel. The dilator was advanced to the vessel without resistance. The dilator was exchanged for the triple lumen catheter which was advanced into the vessel without resistance. The guide wire was removed intact from the catheter without issue. Claves were placed on each catheter tip with confirmation of good blood flow from each lumen. Each port was easily flushed with sterile saline. The catheter was placed at 20 cm and sutured in place. BioPatch was applied to the catheter and a sterile Tegaderm dressing was applied over the catheter with careful attention to sterility. Patient tolerated procedure well. No immediate complications were met. Number of attempts x1. Line ready for immediate use. Procedural Ultrasound Guidance: Procedure Date: Indication: Vasopressor use, shock, poor peripheral access Attending: Dr. Vilensky Artery AND Vein visualized: Yes Compressible Vein: Yes Guidewire or Short Catheter seen in vein prior to dilation: YES Images not obtained or saved for permanent record due to urgent need for access with low blood pressure and MAPS. Coding CPT Codes Tubes, Drains, and Vasc Access - Tubes, Drains, and Vasc Access: [id number] Place catheter in vein superior or inferior vena cava ([id number]) Tubes, Drains, and Vasc Access - Tubes, Drains, and Vasc Access: [id number] Ultrasound Guidance For Vascular ([id number]) [facility] [place] Procedure Codes (Charges) Tubes, Drains, and Vasc Access Procedure 1: Tubes, Drains, and Vasc Access: [id number] Place catheter in vein superior or inferior vena cava Procedure 2: Tubes, Drains, and Vasc Access: [id number] Ultrasound Guidance For Vascular
[2022-04-19] MEDS: PIPERACILLIN/TAZOBACTAM 4.5 GM in DEXTROSE 5% 100 ML IV SCH ×3 (01:39→21:15)
[2022-04-19] MEDS: VASOPRESSIN 20 UNITS in 0.9 % SODIUM CHLORIDE 100 ML IV SCH ×2 (01:54→13:54)
--- NOTE | 2022-04-19 02:46 | History and Physical Report ---
DATE OF ADMISSION: 04/18/2022. CHIEF COMPLAINT: Bacteremia, hypotension, anemia. HISTORY OF PRESENT ILLNESS: This is a 56-year-old female with past medical history significant for type 2 diabetes, end-stage renal disease on hemodialysis, diabetic polyneuropathy, hyperlipidemia, history of hypothyroidism, hypertension, history of osteomyelitis of the left foot, status post treatment, history of anemia of chronic kidney disease, history of metastatic neuroendocrine cancer deemed not a candidate for chemotherapy, status post radiation treatment. She was in the hospital in February with severe back pain and pathological fracture of thoracic vertebrae. At that time she was having MRSA bacteremia, MRI of the foot and ankle revealed fluid collection and presence of osteo. As there is no surgeon to perform BKA for osteomyelitis and persistent bacteremia, [place] [facility] [place] course as per [facility] is that she has bilateral leg weakness and she could not feel from mid thoracic down. Hence, spinal surgery evaluation was done. The patient would require a massive anterior thoracotomy and posterior decompression, stabilization and this was not performed given the extensive comorbidities, acute infection, and concerned surgical intervention would not alter the patient's clinical course. Regarding neuroendocrine tumor, there was no further oncologic treatment and the patient also had left diabetic foot ulcer, MRSA bacteremia. The patient after medical optimization, on 03/05/2022, underwent successful left BKA. Infectious Disease was consulted and although YUMIKO was negative, and source controlled with BKA, patient was recommended to continue vancomycin for MRSA bacteremia until 04/16/2022 due to greater than 1 week for persistent bacteremia .Regarding the neuroendocrine tumor with spinal metastasis, she was evaluated by Radiation Oncology and Oncology. It was determined safe effective radiation to the areas of interest was not feasible and Oncology was also consulted and recommended the patient follow with outpatient oncology.The patient was previously not deemed a candidate for systemic chemotherapy by outpatient oncologist and also Palliative Medicine was consulted and assisted with pain management and the patient was not interested in talking about hospice and transition to supportive care at that time. The patient was also found to have sacral and left ischial pressure injury that was unstageable and the patient was discharged to [facility], seems to be on 03/24/2022 and today she was transferred here because her blood cultures came back positive with gram-negative bacilli . Per the EMS, the patient's blood pressure was lower on the 88/40 and she had dialysis yesterday. She received 2 g of Rocephin prior to ER transport. Her labs in the ER showing hemoglobin of 5.9. No black stools or bloody stools. She is getting 2 units of PRBC in the ER, 1st unit just started. Urinalysis was positive for infection. The patient is speaking in low voice, daughter in the room. The patient has some neck pain. Denies any headache, has back pain. Denies any chest pain. Denies any shortness of breath. No cough. Denies any fevers. Appetite is somewhat low. No runny nose, no sore throat. No belly pain. Denies any diarrhea. Blood pressure was soft, but improved with the fluids 2 liters. She is getting PRBC transfusion now. ALLERGIES: TO IODINATED CONTRAST MEDIA, OMEPRAZOLE, MICHAEL INHIBITORS, GABAPENTIN. PAST MEDICAL HISTORY: As mentioned above. PAST SURGICAL HISTORY: Left BKA,, right big toe amputation, , cystoscopy, cystourethroscopy with biopsy, right parapharyngeal tumor removed, injection of lumbosacral spine, creation of AV fistula, lens extraction in both eyes, ligation of oviducts, partial removal of the left 4th and 5th bones, radiation therapy, total thyroid lobectomy on the right side, cholecystectomy, and recently had left below-knee amputation. MEDICATIONS: The patient is on Tylenol 650 mg p.o. q. 6 hours p.r.n., B complex vitamin 1 tablet daily, collagenase ointment topical daily, famotidine 20 mg p.o. Wednesday, Wednesday, Wednesday, gabapentin 200 mg p.o. daily, hydromorphone 8 mg p.o. q. 3 hours p.r.n. for pain, Lantus 10 units subcutaneously p.m., insulin regular sliding scale, levothyroxine 125 mcg p.o. daily, lidocaine 5% topical patch topically daily, , methadone 15 mg p.o. q. 8 hours, midodrine 10 mg p.o. daily p.r.n., Zofran 4 mg p.o. q. 6 hours p.r.n., MiraLax 34 g p.o. daily, Senokot Plus 2 tablets p.o. b.i.d., vitamin B complex one p.o. daily. FAMILY HISTORY: Significant for father has diabetes; mother has diabetes; father has hypertension; paternal grandfather had heart attack. SOCIAL HISTORY: No smoking, alcohol rare, no drug use. REVIEW OF SYSTEMS: As per HPI. Rest of the review of systems is negative. PHYSICAL EXAMINATION: GENERAL: The patient is somewhat frail looking, but not in acute distress. VITAL SIGNS: Temperature 37.2, pulse 96, respiratory rate 18, blood pressure was 102/56, currently 75/39, oxygen 100% on nasal cannula. HEENT: Pupils equal, round and reactive to light. Oral mucosa moist. NECK: No JVD or neck masses. CARDIOVASCULAR: S1 and S2 heard. Tachycardia. No murmurs. RESPIRATORY SYSTEM: Normal AP diameter. No accessory muscle use. No wheezing, no crackles. ABDOMEN: Soft, bowel sounds present, nontender, no distention. CENTRAL NERVOUS SYSTEM: Alert and oriented. No facial droop. Lack of sensation from below the central thorax. EXTREMITIES: Left below-knee amputation. SKIN: Unstageable sacral decubitus ulcers and also ulcer with black eschar seen on the left knee and also on the lateral aspect of the right foot. EXTREMITIES: No edema, erythema seen. LABORATORY DATA: WBC 14, hemoglobin 5.9, hematocrit 19.2, platelets 182. Sodium 134, potassium 4.2, chloride 99, bicarbonate 25, BUN 47, creatinine 3.5, serum glucose 178. Lactate 1.8, calcium 9.1, magnesium 1.9, total bilirubin 0.6, direct bilirubin 0.3, AST 162, ALT 124, alkaline phosphatase 176. Troponin I high sensitivity 9.7. Procalcitonin 6.3. Urinalysis positive for trace leukocyte esterase. SARS-CoV-2 rapid test negative. IMAGING DATA: Chest x-ray, small left basilar patchy airspace opacities. This likely represents pneumonia. EKG: Normal sinus rhythm, rate of 92, no significant change was found. 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 1. Severe Sepsis Sacral decubitus ulcers and gram-negative bacilli and hypotensive on presentation,With 2lts fluids BP seemed improved but again dropping down. In the ER received vancomycin and cefepime. We will continue with vancomycin and Zosyn. As Per [facility] blood cx growing proteus negative for resistance with cephalosporins or carbapenems.Will Follow the cultures. Getting started on pressors and admitting to ICU. Appreciate ICU help.. 2. End-stage renal disease: On hemodialysis, had dialysis yesterday. Nephrology consult for dialysis. 3. Anemia: Anemia of chronic kidney disease, seems to be no active bleeding. Getting 2 units of PRBCs. Hemoglobin was 5.9 here. Hemoglobin around 7 chronically. We will monitor the labs. We will monitor for any volume overload. 4. Metastatic neuroendocrine tumor. Follow up with Hem/Onc and Radiation Oncology. Seems to be not a candidate for any therapies at this time. Seems to have outpatient followup with Hematology and Oncology. May need to revisit Palliative Care consult for any Goals.of care. The patient currently seems to be full code. 5. Pathological fracture of thoracic vertebrae: Pain medication, On methadone Monitor Qt prolongation..Currently not mobile. 6. Diabetes: Continue home Lantus and insulin sliding scale. Follow the blood sugars. 7. Constipation due to opioid therapy. Continue stool softeners. 8. Pressure ulcers on the sacral region, on the right buttocks and left buttocks, unstageable and also on the left knee and also right foot. Wound Care consulted.Surgery Consulted for possible I and D of sacral wounds. 9. Deep venous thrombosis prophylaxis. Currently SCDs. If there are no obvious signs of bleeding, can place her on heparin subcutaneously. DISPOSITION: Closely monitor in the ICU. Level 1 full code as per my discussion with the patient. Social service to help with discharge planning. Job ID: [id number] [facility]
[2022-04-19] MEDS ORDERED: SODIUM CHLORIDE 0.9% 250 ML IV PRN (03:22)
[2022-04-19 04:41] LABS: INR 1.2 (0.9-1.1); Prothrombin Time 12.7 Seconds (9.0-12.0)
[2022-04-19] MEDS: METHADONE HCL 5 MG TAB PO SCH ×3 (05:14→21:15)
[2022-04-19] MEDS: METHADONE HCL 10 MG TAB PO SCH ×3 (05:14→21:15)
[2022-04-19] MEDS: LEVOTHYROXINE SODIUM 125 MCG TABLET PO SCH (05:15)
[2022-04-19] MEDS ORDERED: METHADONE HCL 5 MG TAB PO SCH (06:00)
[2022-04-19 07:43] LABS: Hematocrit (blood only) 29.5 % (34.1-44.9); Hemoglobin 9.5 g/dl (12.0-16.0); Mean Corpuscular Hemoglobin 30.8 pg (25.0-34.0); Mean Corpuscular Hgb Conc 32.2 g/dL (32.0-36.0); Mean Corpuscular Volume 95.8 fL (80.0-100.0); Mean Platelet Volume 10.1 fL (9.4-12.3); Platelet Count 230 K/uL (130-400); RDW Coefficient of Variation 17.1 % (11.5-14.5); Red Blood Count 3.08 M/uL (3.93-5.22); White Blood Count 21.96 K/ul (4.8-10.8)
[2022-04-19 07:44] LABS: Basophils # (auto) 0.05 K/uL (0-0.2); Basophils % (auto) 0.2 %; Eosinophils # (auto) 0.02 K/uL (0-0.50); Eosinophils % (auto) 0.1 %; Immature Granulocytes # (auto) 0.18 K/uL (0.00-0.02); Immature Granulocytes % (auto) 0.8 %; Lymphocytes # (auto) 0.92 K/uL (1.2-3.4); Lymphocytes % (auto) 4.2 %; Monocytes # (auto) 0.87 K/uL (0.24-0.82); Neutrophils # (auto) 19.92 K/uL (1.4-6.5); Neutrophils % (auto) 90.7 %
[2022-04-19 07:52] LABS: Albumin Level 2.2 gm/dl (3.4-5.0); BUN Creatinine Ratio 14.7 (10-20); Bilirubin Direct 0.3 mg/dl (0-0.2); Bilirubin,Total 0.8 mg/dl (0.2-1.0); Creatinine Clr Calc Pharmacy 17.8 ml/min; Est GFR (African American) 16.3 ml/min; Phosphorus 4.4 mg/dl (2.5-4.9); Potassium 4.1 mmol/L (3.5-5.1); Total Protein 7.7 gm/dl (6.0-8.3)
[2022-04-19] MEDS ORDERED: ICU Protocol for HYPERglycemia SCH (09:00)
[2022-04-19] MEDS ORDERED: NON-FORMULARY MEDICATION (B Complex-Vitamin C-Folic Acid [Rena-Vite] 0.8 mg tablet) PO SCH (09:00)
[2022-04-19] MEDS: INSULIN ASPART PER UNIT SC SCH ×4 (09:09→21:15)
[2022-04-19] MEDS: COLLAGENASE OINT 30 GM TUBE TOP SCH (10:17)
[2022-04-19] MEDS: DOCUSATE SODIUM/SENNA 50/8.6MG TAB PO SCH ×3 (10:18→21:18)
[2022-04-19] MEDS: GABAPENTIN 100 MG CAP PO SCH (10:18)
[2022-04-19] MEDS: NEPHROCAPS PO SCH (10:19)
[2022-04-19] MEDS: POLYETHYLENE (MIRALAX) 17 GM PACK PO SCH ×2 (10:19→10:33)
[2022-04-19] MEDS: LIDOCAINE 5% 1 PATCH TD SCH (10:19)
--- NOTE | 2022-04-19 10:20 | Nephrology Consultation ---
Date of Consultation April 19, 2022 Assessment & Plan (1) Severe sepsis with septic shock: from proteus bacteremia in the setting of at least 2 unstageable pressure ulcers and fecal incontinence, chronic urinary catheter. also w/ recent MRSA bacteremia in February, just finishing tx and w/ only one set of blood cxs at rehab. -f/u pending CT scan and blood cxs >> CT scan as above -cont zosyn and vanco; critical care adding caspofungin coverage -low threshold for TTE, for Inf Dzs consult -I&D had been contemplated for AM; unclear if this will still be relevant given CT findings (2) ESRD (end stage renal disease) on dialysis: no indication for urgent HD today -assess for need daily -appreciate teams' efforts to avoid IV contrast -plan HD tomorrow which may need to work around OR (3) Anemia: agree w/ plans to transfuse to keep hgb > 7. not a candidate for AMEENA therapy current or IV iron. History of Present Illness Reason for Consultation: ESRD/dialysis needs Requesting Physician: Dr Orourke Attending Physician: Hugo Parmar MD History of Present Illness 56 y/o medically complex F whom I'm asked to see for diaylsis needs was sent from acute /inpatient rehab after 04/17 blood culture grew Proteus. I had ordered that culture b/c pt was having low grade fevers (100.4 at highest) w/o other acute issues on 04/17 at rehab. PMH includes recent onset paraplegia past 2 months in the wake of T6 and L4 vertebral body burst fractures related to metastatic neuroendocrine tumor (not a candidate for CTX and s/p XRT) in the setting of MRSA bacteremia Feb 2022 d/t L foot/ankle osteomyelitis: s/p L BKA 03/05/2022 and transfer to [facility] where spine surgery team evaluation found pt not a candidate for what would have been an extensive surgical procedure to address BL leg weakness/mid thoracic to leg numbness. Pt also w/ extensive and unstageable sacral and L ischial wounds. She had been receiving vancomycin through 04/16/22. She follows w/ OP palliative service for help w/ OP pain management. She has frequently discussed goals of care and has consistently including at this admission chosen to remain full code status. PMH also remarkable for ESRD on most recently MWF HD via endovascular AVF, GM, HTN, hypothyroid. She has a chronic woodruff catheter at rehab. Pt states that yesterday she was extremely lethargic and had trouble interacting. SBP was in 80s when EMS evaluated pt prior to transfer; she was r esuscitated in ER 30 mL/kg w/ rebound in sbp to > 100. She has midodrine prn at rehab. Hgb on arrival was 5.9; she had 2 units pRBC planned but 1/2 through first unit her BP dropped again and temp increased by 1 degree to 37.8. Transfusion stopped with transfusion reaction protocol initiated, including ICU consultation. She had another 250 mL crystalloid, was started on levophed after femoral line placement. She was eventually able to complete her pRBC and hgb today is 9.5. Of note her hgb had been hovering just over 7 for at least 10 days prior to admission since she has not been a candidate recently for AMEENA d/t worsening/active cancer status. in addition to anemia, hypotension concerns, admission work up notable for lactate 2.4, elevated transaminases in the 200-300s, procalcitonin 11's ths am. Stress dosed steroids were considered but ultimately deferred. She has endorsed some neck pain since arrival though none when I evaluated her. She denies dyspnea, uncontrolled musculoskeletal pain, n/v/d; feels much more alert w/ improvement in blood pressures. When I evaluated her early this afternoon, CT a/p was still pending. 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 Critical care again revisited code status w/ pt and her family given this information. Code status changed to DNR/DNI now. Allergies Allergy/AdvReac Type Severity Reaction Status Date / Time gabapentin AdvReac Severe Tremor Verified 04/18/22 22:49 Iodinated Contrast Media AdvReac Severe Patient Verified 04/18/22 20:57 has kidney failure omeprazole AdvReac Severe Increased Verified 04/18/22 20:57 her acid reflux MICHAEL Inhibitors AdvReac Unknown Intolerance Verified 04/18/22 20:57 Home Medications Medication Instructions Recorded Confirmed Type levothyroxine 125 mcg tablet 125 mcg PO DAILYBB 03/15/21 04/18/22 History acetaminophen 325 mg capsule 650 mg PO Q6H PRN Pain 11/01/22 11/12/22 History (Tylenol) collagenase clostridium histo. 250 1 applic topical DAILY 04/07/22 04/18/22 History unit/gram topical ointment (Santyl) famotidine 20 mg tablet (Pepcid) 20 mg PO .Mon-Wed-Wed04/07/22 04/18/22 History gabapentin 100 mg capsule 200 mg PO DAILY 04/07/22 04/18/22 History insulin glargine 100 unit/mL 10 unit subcut QPM 04/07/22 04/18/22 History subcutaneous solution (Lantus U-100 Insulin) insulin regular human 100 unit/mL 1 sliding scale dose subcut 04/07/22 04/18/22 History injection solution (Humulin R USEASDIRECTD Regular U-100 Insulin) lidocaine 5 % topical patch 1 patch topical DAILY 04/07/22 04/18/22 History methadone 10 mg tablet 10 mg PO Q8H 04/07/22 04/18/22 History ondansetron HCl 4 mg tablet 4 mg PO Q6H PRN Nausea 04/07/22 04/18/22 History polyethylene glycol 3350 17 34 g PO DAILY 04/07/22 04/18/22 History gram/dose oral powder vitamin B complex and vitamin C 1 cap PO DAILY 04/07/22 04/18/22 History no.20-folic acid 1 mg capsule Ceftriaxone Ivpb See Rx Instructions .Route .COMPLEX 04/18/22 04/18/22 History hydromorphone 4 mg tablet 8 mg PO .Q3HR PRN Pain 04/18/22 04/18/22 History methadone 5 mg tablet 5 mg PO Q8 04/18/22 04/18/22 History midodrine 5 mg tablet 10 mg PO DAILY PRN .. 04/18/22 04/18/22 History sennosides 8.6 mg-docusate sodium 2 tab-cap PO BID 04/18/22 04/18/22 History 50 mg tablet (Senna Plus) vitamin B complex-vitamin C-folic 1 tab PO DAILY 04/18/22 04/18/22 History acid 0.8 mg tablet (Ira-Umer) Patient History Medical History Acid reflux Anemia Chronic narcotic dependence Diabetes Diabetic retinopathy ESRD (end stage renal disease) On dialysis [id number] @ [facility] H/O vocal cord paralysis Right side Hypertension MRSA bacteremia 2017; unclear if vertebral or R diabetic foot wound source 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---only had radiation treatments Osteomyelitis of left foot chronic 2020 and 2021 Palliative care encounter Radicular pain of thoracic region Retinal hemorrhage, right eye Sepsis Thyroid cancer had sx Thyroid nodule Wound abscess left foot diabetic ulcer Surgical History Amputation of right great toe AVF (arteriovenous fistula) endovascular L; created 09/2020 H/O thyroidectomy Partial thyroidectomy History of cholecystectomy History of esophagogastroduodenoscopy (EGD) History of surgery Surgery to removed benign tumor from right vocal cord; History of surgery (~01/26/22) permcath placed--pt states her AV fistula was not working properly so permcath placed at that time by Dr. Strong @ [facility]--per pt on 02/19/22 she states her AV fistula is now working properly History of surgical procedure on eye proper using laser History of tooth extraction partial upper denture Hx of cataract surgery Bilateral Hx of tonsillectomy Previous section x2 Family History Mother , 70yo Diabetes Valvular heart disease Father , 74yo Diabetes Pneumonia Brother No problems noted. Brother No problems noted. Sister Kidney disease Dialysis patient Daughter No problems noted. Daughter Diabetes Other No family history of adverse response to anesthesia Social History Smoking Status: Never smoker Second Hand Exposure: No; Do You Dip or Chew Tobacco: No; Hx Alcohol Use: No Hx Substance Use: No Preferred Language: Welsh Communication Ability: Effective Visual Impairment: No Limitations Hearing Ability: Normal Program Facilitator Required: No Beliefs That Will Affect Care: None marital status: Current Living Situation: Rehab Current Living Situation Comment: Pt currently residing at [facility] current occupational status: disabled How many Children do You have: 2 Other Information That Helps Us Care for You: No Feels Safe at Home: Yes Safety Concerns: Feels Safe At This Time caffeine: No during the past year weight has: remained stable Assistive Devices: Wheelchair Review of Systems Review of Systems: All systems reviewed & are unremarkable except as noted in HPI & below Physical Exam Constitutional: well developed, + cachectic, + physical limitations, + frail appearing and cooperative; no acute distress and no altered mental status Eyes: EOM intact bilaterally ENMT: Ears: no external ear abnormality Nose: no external nose abnormality Mouth: + dry oral mucous membranes Neck: no nuchal rigidity Respiratory: normal respiratory effort Auscultation: + diminished lung sounds Cardiovascular: Rate/Rhythm: regular rate and regular rhythm Heart Sounds: normal S1 and normal S2 Extremities: + AV fistula (LUE) Gastrointestinal (Abdomen): Inspection/Auscultation: normal bowel sounds Percussion/Palpation: abdomen soft; abdomen nontender Musculoskeletal: Extremities: strength 5/5 throughout Skin: no rashes, warm and dry backside not examined; large L patellar abrasion Neurologic: rodriguez, fluent speech, no tremor Psychiatric: Orientation: oriented x 3 Speech: normal rate/rhythm/volume of speech (hoarse, soft as it has been most recently) Genitourinary: ranjan present Results & Data ([facility]) Vital Signs (Past 12 Hours) Vital Signs Temp Pulse Pulse Resp BP BP Pulse Ox 04/19/22 07:45 77 13 94 04/19/22 07:30 77 13 95 04/19/22 07:15 78 11 L 95 04/19/22 07:00 77 16 95 04/19/22 06:45 77 15 94 04/18/22 22:50 37.0 C 78 16 143/57 H 95 04/19/22 06:30 37.0 C 78 15 95 04/19/22 06:15 79 16 95 04/19/22 06:00 79 15 94 04/19/22 05:45 37.1 C 81 11 L 94 04/19/22 05:30 83 15 93 04/19/22 05:15 37.0 C 89 17 90 04/19/22 05:00 86 11 L 94 04/19/22 04:45 37.1 C 87 12 95 04/19/22 04:30 37.1 C 90 14 95 04/19/22 04:00 37 C 89 13 94 04/19/22 03:30 90 11 L 93 04/19/22 03:00 94 H 13 93 04/19/22 02:30 95 H 12 93 04/19/22 02:00 101 H 21 04/19/22 01:00 86 6 L 04/19/22 00:52 178/87 H 04/19/22 00:52 100 H 11 L 98 04/19/22 00:50 148/76 H 04/19/22 00:50 92 H 15 99 04/19/22 00:48 64/43 L 04/19/22 00:48 81 11 L 98 04/19/22 00:40 75/46 L 04/19/22 00:40 86 15 97 04/19/22 00:30 87 11 L 99 04/19/22 00:30 79/49 L 04/19/22 00:20 75/45 L 04/19/22 00:20 87 18 99 04/19/22 00:10 36.7 C 74/48 L 04/19/22 00:10 90 13 100 04/19/22 00:08 83/51 L 04/19/22 00:08 88 19 100 04/19/22 00:00 88 19 97 04/19/22 03:47 36.9 C 90 16 126/41 L 95 04/19/22 00:00 04/19/22 00:00 04/18/22 23:46 04/18/22 23:32 37.2 C 92 H 18 81/41 L 100 04/18/22 23:15 36.9 C 92 H 18 76/38 L 100 04/18/22 23:08 95 H 18 73/43 L 100 04/18/22 22:50 37.8 C H 94 H 18 77/39 L 100 04/18/22 22:27 37.2 C 96 H 18 75/39 L 100 O2 Del Method O2 Flow Rate 04/19/22 07:45 04/19/22 07:30 04/19/22 07:15 04/19/22 07:00 04/19/22 06:45 04/18/22 22:50 3 04/19/22 06:30 04/19/22 06:15 04/19/22 06:00 04/19/22 05:45 04/19/22 05:30 04/19/22 05:15 04/19/22 05:00 04/19/22 04:45 04/19/22 04:30 04/19/22 04:00 04/19/22 03:30 04/19/22 03:00 04/19/22 02:30 04/19/22 02:00 04/19/22 01:00 04/19/22 00:52 04/19/22 00:52 04/19/22 00:50 04/19/22 00:50 04/19/22 00:48 04/19/22 00:48 04/19/22 00:40 04/19/22 00:40 04/19/22 00:30 04/19/22 00:30 04/19/22 00:20 04/19/22 00:20 04/19/22 00:10 04/19/22 00:10 04/19/22 00:08 04/19/22 00:08 04/19/22 00:00 04/19/22 03:47 3 04/19/22 00:00 Nasal Cannula 3 04/19/22 00:00 Nasal Cannula 3 04/18/22 23:46 Nasal Cannula 2 04/18/22 23:32 Nasal Cannula 2 04/18/22 23:15 Nasal Cannula 2 04/18/22 23:08 Nasal Cannula 2 04/18/22 22:50 2 04/18/22 22:27 2 Laboratory Results 04/19/22 06:49 04/19/22 06:49 Diagnostic Findings cxr There is a new small left basilar patchy airspace opacity. This likely represents a pneumonia. CT a/p noncon Lower chest: Bibasilar atelectasis versus scarring is seen. Liver: Unremarkable. No focal lesions are seen. Gallbladder and biliary tree: No calcified gallstones. Normal caliber wall. No intra- or extrahepatic biliary ductal dilation. Pancreas: Unremarkable, no focal lesions. Spleen: Splenomegaly is noted, the spleen measures 14.7 cm. Adrenals: Unremarkable. Kidneys and ureters: Stable intermediate density lesion in the left kidney. Bladder: Woodruff catheter is seen. Reproductive organs: Unremarkable. Bowel: Stool is noted to exit posteriorly in the presacral soft tissues. There is thickening of the rectal soft tissues compatible with stercoral colitis. Diverticulosis is seen without diverticulitis. The appendix is normal. Lymph nodes Retroperitoneal: Unremarkable. Pelvic: Unremarkable. Mesenteric: Unremarkable. Peritoneum: Normal. Vessels: Monckeberg type calcifications are seen. Abdominal wall: There is subcutaneous emphysema in the sacral region. Body wall edema is seen. Soft tissue thickening in the anterior abdominal wall is seen. Bones: There is erosion and lucency about the coccyx which is new from prior exam, concerning for osteomyelitis. Lytic focus in anterior L5 and pathologic burst fracture of L4 is noted, unchanged. IMPRESSION: 1. There is thickening of the rectum concerning for stercoral colitis. There is posterior leakage of stool, clinical correlation is recommended for enterocutaneous fistula. 2. Erosions at the coccyx with subcutaneous gas in the sacral soft tissues, concerning for osteomyelitis. 3. Additional findings as above. No evidence of intra-abdominal hemorrhage. 4. Stable intermediate density lesion in the left kidney. If further evaluation is desired, a nonemergent ultrasound can be performed.
--- NOTE | 2022-04-19 10:49 | Surgery Consultation ---
Date of Consultation April 19, 2022 Assessment & Plan (1) Sacral decubitus ulcer, stage IV: Patient was seen with Dr. Hermosillo. Continue IV antibiotics. Hopefully can continue to wean pressors. Consider wound debridement tomorrow in OR. History of Present Illness Attending Physician: Hugo Parmar MD History of Present Illness 56-year-old diabetic female s/p BKA in February brought to the emergency department overnight from [facility] for hypotension and gram-negative bacteremia. She was admitted to ICU overnight. She remains on Levophed. She has sacral and left ischial pressure ulcers. Surgery was consulted for evaluation. Allergies Allergy/AdvReac Type Severity Reaction Status Date / Time gabapentin AdvReac Severe Tremor Verified 04/18/22 22:49 Iodinated Contrast Media AdvReac Severe Patient Verified 04/18/22 20:57 has kidney failure omeprazole AdvReac Severe Increased Verified 04/18/22 20:57 her acid reflux MICHAEL Inhibitors AdvReac Unknown Intolerance Verified 04/18/22 20:57 Home Medications Medication Instructions Recorded Confirmed Type levothyroxine 125 mcg tablet 125 mcg PO DAILYBB 03/15/21 04/18/22 History acetaminophen 325 mg capsule 650 mg PO Q6H PRN Pain 04/07/22 04/18/22 History (Tylenol) collagenase clostridium histo. 250 1 applic topical DAILY 04/07/22 04/18/22 History unit/gram topical ointment (Santyl) famotidine 20 mg tablet (Pepcid) 20 mg PO .Mon-Wed-Wed04/07/22 04/18/22 History gabapentin 100 mg capsule 200 mg PO DAILY 04/07/22 04/18/22 History insulin glargine 100 unit/mL 10 unit subcut QPM 04/07/22 04/18/22 History subcutaneous solution (Lantus U-100 Insulin) insulin regular human 100 unit/mL 1 sliding scale dose subcut 04/07/22 04/18/22 History injection solution (Humulin R USEASDIRECTD Regular U-100 Insulin) lidocaine 5 % topical patch 1 patch topical DAILY 04/07/22 04/18/22 History methadone 10 mg tablet 10 mg PO Q8H 04/07/22 04/18/22 History ondansetron HCl 4 mg tablet 4 mg PO Q6H PRN Nausea 04/07/22 04/18/22 History polyethylene glycol 3350 17 34 g PO DAILY 04/07/22 04/18/22 History gram/dose oral powder vitamin B complex and vitamin C 1 cap PO DAILY 04/07/22 04/18/22 History no.20-folic acid 1 mg capsule Ceftriaxone Ivpb See Rx Instructions .Route .COMPLEX 04/18/22 04/18/22 History hydromorphone 4 mg tablet 8 mg PO .Q3HR PRN Pain 04/18/22 04/18/22 History methadone 5 mg tablet 5 mg PO Q8 04/18/22 04/18/22 History midodrine 5 mg tablet 10 mg PO DAILY PRN .. 04/18/22 04/18/22 History sennosides 8.6 mg-docusate sodium 2 tab-cap PO BID 04/18/22 04/18/22 History 50 mg tablet (Senna Plus) vitamin B complex-vitamin C-folic 1 tab PO DAILY 04/18/22 04/18/22 History acid 0.8 mg tablet (Ira-Umer) Patient History Medical History Acid reflux Anemia Chronic narcotic dependence Diabetes Diabetic retinopathy ESRD (end stage renal disease) On dialysis [id number] @ [facility] H/O vocal cord paralysis Right side Hypertension MRSA bacteremia 2017; unclear if vertebral or R diabetic foot wound source 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---only had radiation treatments Osteomyelitis of left foot chronic 2020 and 2021 Palliative care encounter Radicular pain of thoracic region Retinal hemorrhage, right eye Sepsis Thyroid cancer had sx Thyroid nodule Wound abscess left foot diabetic ulcer Surgical History Amputation of right great toe AVF (arteriovenous fistula) endovascular L; created 09/2020 H/O thyroidectomy Partial thyroidectomy History of cholecystectomy History of esophagogastroduodenoscopy (EGD) History of surgery Surgery to removed benign tumor from right vocal cord; History of surgery (~01/26/22) permcath placed--pt states her AV fistula was not working properly so permcath placed at that time by Dr. Strong @ [facility]--per pt on 09/15/22 she states her AV fistula is now working properly History of surgical procedure on eye proper using laser History of tooth extraction partial upper denture Hx of cataract surgery Bilateral Hx of tonsillectomy Previous section x2 Family History Mother , 70yo Diabetes Valvular heart disease Father , 74yo Diabetes Pneumonia Brother No problems noted. Brother No problems noted. Sister Kidney disease Dialysis patient Daughter No problems noted. Daughter Diabetes Other No family history of adverse response to anesthesia Social History Smoking Status: Never smoker Second Hand Exposure: No; Do You Dip or Chew Tobacco: No; Hx Alcohol Use: No Hx Substance Use: No Preferred Language: Albanian Communication Ability: Effective Visual Impairment: No Limitations Hearing Ability: Normal Clinical Social Work Therapist Required: No Beliefs That Will Affect Care: None marital status: Current Living Situation: Rehab Current Living Situation Comment: Pt currently residing at [facility] current occupational status: disabled How many Children do You have: 2 Other Information That Helps Us Care for You: No Feels Safe at Home: Yes Safety Concerns: Feels Safe At This Time caffeine: No during the past year weight has: remained stable Assistive Devices: Wheelchair Physical Exam Constitutional: WD/WN, vitals as above Skin: large necrotic left ischial and sacral ulcers Results & Data ([facility]) Vital Signs (Past 12 Hours) Vital Signs Temp Pulse Pulse Resp BP BP Pulse Ox 04/19/22 07:45 77 13 94 04/19/22 07:30 77 13 95 04/19/22 07:15 78 11 L 95 04/19/22 07:00 77 16 95 04/19/22 06:45 77 15 94 04/18/22 22:50 37.0 C 78 16 143/57 H 95 04/19/22 06:30 37.0 C 78 15 95 04/19/22 06:15 79 16 95 04/19/22 06:00 79 15 94 04/19/22 05:45 37.1 C 81 11 L 94 04/19/22 05:30 83 15 93 04/19/22 05:15 37.0 C 89 17 90 04/19/22 05:00 86 11 L 94 04/19/22 04:45 37.1 C 87 12 95 04/19/22 04:30 37.1 C 90 14 95 04/19/22 04:00 37 C 89 13 94 04/19/22 03:30 90 11 L 93 04/19/22 03:00 94 H 13 93 04/19/22 02:30 95 H 12 93 04/19/22 02:00 101 H 21 04/19/22 01:00 86 6 L 04/19/22 00:52 178/87 H 04/19/22 00:52 100 H 11 L 98 04/19/22 00:50 148/76 H 04/19/22 00:50 92 H 15 99 04/19/22 00:48 64/43 L 04/19/22 00:48 81 11 L 98 04/19/22 00:40 75/46 L 04/19/22 00:40 86 15 97 04/19/22 00:30 87 11 L 99 04/19/22 00:30 79/49 L 04/19/22 00:20 75/45 L 04/19/22 00:20 87 18 99 04/19/22 00:10 36.7 C 74/48 L 04/19/22 00:10 90 13 100 04/19/22 00:08 83/51 L 04/19/22 00:08 88 19 100 04/19/22 00:00 88 19 97 04/19/22 03:47 36.9 C 90 16 126/41 L 95 04/19/22 00:00 04/19/22 00:00 04/18/22 23:46 04/18/22 23:32 37.2 C 92 H 18 81/41 L 100 04/18/22 23:15 36.9 C 92 H 18 76/38 L 100 04/18/22 23:08 95 H 18 73/43 L 100 04/18/22 22:50 37.8 C H 94 H 18 77/39 L 100 O2 Del Method O2 Flow Rate 04/19/22 07:45 04/19/22 07:30 04/19/22 07:15 04/19/22 07:00 04/19/22 06:45 04/18/22 22:50 3 04/19/22 06:30 04/19/22 06:15 04/19/22 06:00 04/19/22 05:45 04/19/22 05:30 04/19/22 05:15 04/19/22 05:00 04/19/22 04:45 04/19/22 04:30 04/19/22 04:00 04/19/22 03:30 04/19/22 03:00 04/19/22 02:30 04/19/22 02:00 04/19/22 01:00 04/19/22 00:52 04/19/22 00:52 04/19/22 00:50 04/19/22 00:50 04/19/22 00:48 04/19/22 00:48 04/19/22 00:40 04/19/22 00:40 04/19/22 00:30 04/19/22 00:30 04/19/22 00:20 04/19/22 00:20 04/19/22 00:10 04/19/22 00:10 04/19/22 00:08 04/19/22 00:08 04/19/22 00:00 04/19/22 03:47 3 04/19/22 00:00 Nasal Cannula 3 04/19/22 00:00 Nasal Cannula 3 04/18/22 23:46 Nasal Cannula 2 04/18/22 23:32 Nasal Cannula 2 04/18/22 23:15 Nasal Cannula 2 04/18/22 23:08 Nasal Cannula 2 04/18/22 22:50 2 PG Care Time/CCT Total # of Minutes Spent Total Time Spent with Patient: Total time spent is greater than 50% in coordination of care (as documented) at patient's floor/unit and/or counseling patient: Coding Level of Care Code 76901 Inpt Consult Level 2 Diagnoses Sacral decubitus ulcer, stage IV L89.154
--- NOTE | 2022-04-19 11:18 | Electrocardiogram Report ---
Test Reason : Blood Pressure : / mmHG Vent. Rate : 092 BPM Atrial Rate : 092 BPM P-R Int : 128 ms QRS Dur : 086 ms QT Int : 366 ms P-R-T Axes : 047 -11 058 degrees QTc Int : 452 ms Normal sinus rhythm Moderate voltage criteria for LVH, may be normal variant Borderline ECG When compared with ECG of 23-JAN-2022 09:29, No significant change was found Confirmed by Jose Beavers ([id number]) on 04/19/2022 11:17:40 AM Referred By: REFERRED SELF Confirmed By:Jose Beavers
[2022-04-19] MEDS ORDERED: VANCOMYCIN HCL 500 MG in DEXTROSE 5% 100 ML IV ONE (13:00)
--- NOTE | 2022-04-19 14:11 | Hospitalist Progress Note ---
Date of Service April 07 and 2021 Assessment & Plan (1) Severe sepsis with septic shock: Plan: Transfer from [facility] with gram-negative bacteremia and hypotension She is a status post left AKA secondary to history of myelitis and finish the course of vancomycin on 1111 1022 and was in [facility] from [facility] at the end Complaint to have sweating and weakness Received intravenous fluid and also blood transfusion and has been on intravenous pressor resents to maintain blood pressure Appreciate research scientist input and recommendation We will continue current antibiotic Blood and urine cultures have been negative in the hospital Palliative care will be consulted (2) Gram-negative bacteremia: Plan: Gram-negative bacteremia was diagnosed in [facility] (3) Sacral decubitus ulcer, stage IV: Plan: Has a stage IV sacral decubiti ulcers which seems to be infected Likely the source of bacteremia IV antibiotic as planned Surgery evaluation is done. Appreciate input and recommendation for debridement tomorrow Surgery will not be done as it could be too risky to do surgery at this time Recommendation was to continue with conservative management and the patient get's better and plan for surgery later (4) ESRD (end stage renal disease) on dialysis: Plan: Appreciate nephrology input and evaluation Will have dialysis today Anemia Likely secondary to end-stage renal disease and may be complicated by ongoing infection Globin is low on admission Received 2 units of blood transfusion and hemoglobin seems to be stable Not a candidate for nipple and/or iron Hemoglobin remains at more than 8 today (5) CKD (chronic kidney disease): Plan: As above (6) Neuroendocrine tumor: Plan: Has metastatic neuroendocrine tumor Status post evaluation by oncology palliative care Not for any further chemotherapy and she is not yet ready for hospice care (7) DMII (diabetes mellitus, type 2): Plan: Has been on SSI (8) Pathologic fracture of thoracic vertebrae: Plan: She was transferred to [facility] at [place] recently for evaluation She is not a candidate for extensive surgery which will not change the course Has paraplegia Admission and Anticipated Discharge Date Admission Date: April 18, 2022 Subjective 04/19/2022 The patient was seen and examined in ICU She was transferred from [facility] with bacteremia and low blood pressure Complaint to have sweating and generalized weakness Denies any significant symptoms during examination 04/20/2022 The patient was seen and examined in ICU She has been feeling a little better but he still remains hypotensive and requiring pressor resents Denies any fever and chills Has been getting dialysis Review of Systems Review of Systems: All systems reviewed and are unremarkable except as noted Neurologic: Generally very weak and lethargic Physical Exam 2 Physical Exam: Lying in bed comfortably Constitutional: well developed, well nourished, + ill appearing and average body habitus Eyes: PERRL, conjunctivae normal, anicteric sclerae ENMT: external ear and nose normal, oropharynx normal Neck: trachea midline, no thyromegaly Respiratory: no respiratory distress Auscultation: lungs clear to auscultation bilaterally Cardiovascular: Rate/Rhythm: regular rate and regular rhythm; not tachycardic Heart Sounds: normal S1 and normal S2; no murmur Extremities: + edema (Trace edema right side and AKA on the left) Has right foot surgery involving the toes mainly Gastrointestinal (Abdomen): Inspection/Auscultation: normal bowel sounds; abdomen not distended Percussion/Palpation: abdomen soft; abdomen nontender Musculoskeletal: No acute arthritis involving any joint Skin: Left AKA stump seems stable Neurologic: Alert, awake and oriented x3. Generally weak Results & Data Results & Data ([facility]) Vital Signs (Past 12 Hours) Vital Signs Temp Pulse Resp BP Pulse Ox O2 Del Method O2 Flow Rate 04/19/22 13:45 71 12 99 04/19/22 13:30 73 16 98 04/19/22 13:15 72 20 98 04/19/22 13:00 70 14 96 04/19/22 12:45 73 17 97 04/19/22 12:30 76 16 91 04/19/22 12:15 75 10 L 97 04/19/22 12:00 74 14 90 04/19/22 11:45 75 18 93 04/19/22 11:30 76 14 97 04/19/22 11:15 70 13 98 04/19/22 11:00 73 16 98 04/19/22 10:45 75 12 98 04/19/22 10:30 75 18 92 04/19/22 10:15 67 13 86 L 04/19/22 10:00 68 11 L 04/19/22 09:45 73 20 96 04/19/22 09:30 77 16 96 04/19/22 09:15 85 22 94 04/19/22 09:00 82 18 98 04/19/22 08:45 72 13 96 04/19/22 08:30 73 10 L 95 04/19/22 08:15 73 14 95 04/19/22 08:00 70 14 96 04/19/22 08:00 Nasal Cannula 3 04/19/22 07:45 77 13 94 04/19/22 07:30 77 13 95 04/19/22 07:15 78 11 L 95 04/19/22 07:00 77 16 95 04/19/22 06:45 77 15 94 04/19/22 06:30 37.0 C 78 15 95 04/19/22 06:15 79 16 95 04/19/22 06:00 79 15 94 04/19/22 05:45 37.1 C 81 11 L 94 04/19/22 05:30 83 15 93 04/19/22 05:15 37.0 C 89 17 90 04/19/22 05:00 86 11 L 94 04/19/22 04:45 37.1 C 87 12 95 04/19/22 04:30 37.1 C 90 14 95 04/19/22 04:00 37 C 89 13 94 04/19/22 03:30 90 11 L 93 04/19/22 03:00 94 H 13 93 04/19/22 02:30 95 H 12 93 04/19/22 02:00 101 H 21 04/19/22 03:47 36.9 C 90 16 126/41 L 95 3 Laboratory Results Short CBC 04/18/22 04/19/22 Range/Units 19:02 06:49 WBC 14.30 H 21.96 H D (4.8-10.8) K/ul Hgb 5.9 L* 9.5 L D (12.0-16.0) g/dl Hct 19.2 L* 29.5 L (34.1-44.9) % Plt Count 182 230 (130-400) K/uL BMP 04/18/22 04/19/22 19:02 06:49 Sodium 134 L 133 L Potassium 4.2 4.1 Chloride 99 100 Carbon Dioxide 25 23 BUN 47 H 51 H Creatinine 3.52 H 3.48 H Glucose 178 H 200 H Calcium 9.1 9.0 Liver Function 04/18/22 04/19/22 Range/Units 19:02 06:49 Total Bilirubin 0.6 0.8 (0.2-1.0) mg/dl Direct Bilirubin 0.3 H 0.3 H (0-0.2) mg/dl AST 162 H 249 H (13-39) U/L ALT 124 H 193 H (7-52) U/L Alkaline Phosphatase 176 H 206 H (34-104) U/L Albumin 2.2 L 2.2 L (3.4-5.0) gm/dl Urine 04/18/22 Range/Units 22:04 Urine Color Yellow Urine Appearance Cloudy A (Clear) Urine pH 8.5 H (4.5-7.5) Ur Specific [place] 1.016 (1.000-1.030) Urine Protein 3+ H (Negative) Urine Glucose (UA) Trace H (Negative) Medications Administered Current Inpatient Medications Acetaminophen (Acetaminophen 325 Mg Tab) 650 mg PO Q4H PRN PRN Reason: Pain or Fever Stop: 05/18/22 23:52 Collagenase (Collagenase Oint 30 Gm Tube) 1 appln TOP DAILY KIRT Stop: 05/19/22 08:59 Last Admin: 04/19/22 10:17 Dose: 1 appln Dextrose (Dextrose 50% 50 Ml Syringe) 25 - 50 ml IV UD PRN; Protocol PRN Reason: Hypoglycemia Protocol Stop: 05/19/22 00:59 Famotidine (Famotidine 20 Mg Tab) 20 mg PO MoWeFr@0900 KIRT Stop: 05/20/22 08:59 Gabapentin (Gabapentin 100 Mg Cap) 200 mg PO DAILY KIRT Stop: 05/19/22 08:59 Last Admin: 04/19/22 10:18 Dose: 200 mg Glucagon (Glucagon For Inj 1 Mg Vial) 1 mg IM UD PRN; Protocol PRN Reason: Hypoglycemia Protocol Stop: 05/19/22 00:59 Glucose (Glucose 40% Gel 15 Gm Tube) 15 - 30 gm PO UD PRN; Protocol PRN Reason: Hypoglycemia Protocol Stop: 05/19/22 00:59 Glucose (Glucose 10 Tab/Tube) 4 - 8 tab PO UD PRN; Protocol PRN Reason: Hypoglycemia Protocol Stop: 05/19/22 00:59 Hydromorphone HCl (Hydromorphone Hcl 2 Mg Tab) 8 mg PO Q3H PRN PRN Reason: Pain Stop: 05/03/22 00:52 Norepinephrine Bitartrate (Levophed/D5w) 4 mg in 250 mls @ 13.294 mls/hr IV .[id number] [facility]; Protocol Stop: 05/18/22 23:14 Last Titration: 04/19/22 08:14 Dose: 0.02 mcg/kg/min, 5.3 mls/hr Piperacillin Sod/Tazobactam (Sod 4.5 gm/ Dextrose) 120 mls @ 30 mls/hr IV Q12H [facility]; Protocol Stop: 05/03/22 08:59 Last Admin: 04/19/22 10:22 Dose: 30 mls/hr Promethazine HCl 12.5 mg/ (Sodium Chloride) 50.5 mls @ 202 mls/hr IV Q6H PRN PRN Reason: Nausea And Vomiting Stop: 05/18/22 23:52 Vasopressin 20 units/ Sodium (Chloride) 101 mls @ 9.09 mls/hr IV .[id number] [facility]; Protocol Stop: 05/19/22 00:44 Last Admin: 04/19/22 13:54 Dose: Not Given Insulin Aspart (Insulin Aspart Per Unit) 0 units SC ACHS KIRT Stop: 05/19/22 07:29 Last Admin: 04/19/22 09:09 Dose: 1 units Insulin Glargine (Lantus Per Unit Charge) 10 units SQ QPM KIRT Stop: 05/19/22 20:59 Levothyroxine Sodium (Levothyroxine Sodium 125 Mcg Tablet) 125 mcg PO DAILYBB KIRT Stop: 05/19/22 06:29 Last Admin: 04/19/22 05:15 Dose: 125 mcg Lidocaine (Lidocaine 5% 1 Patch) 1 patch TD DAILY KIRT Stop: 05/19/22 08:59 Last Admin: 04/19/22 10:19 Dose: 1 patch Methadone HCl (Methadone Hcl 10 Mg Tab) 10 mg PO Q8 KIRT Stop: 05/03/22 05:59 Last Admin: 04/19/22 13:55 Dose: 10 mg Methadone HCl (Methadone Hcl 5 Mg Tab) 5 mg PO Q8 KIRT Stop: 05/03/22 05:59 Last Admin: 04/19/22 13:56 Dose: 5 mg Midodrine (Midodrine Hcl 2.5 Mg Tab) 5 mg PO TID@0800,1200,1700 [facility] Stop: 05/19/22 16:59 Miscellaneous (Remove Lidoderm Patch) 1 each N/A DAILY@2100 [facility] Stop: 05/19/22 20:59 Miscellaneous (Carbohydrates For Hypoglycemia ) 15 - 30 gm PO UD PRN PRN Reason: Hypoglycemia Treatment Stop: 05/19/22 00:59 Miscellaneous (Icu Protocol For Hyperglycemia) 1 each N/A QAM KIRT Stop: 04/21/22 08:59 Last Admin: 04/19/22 13:54 Dose: 1 each Miscellaneous Information (Vancomycin Consult Active) 1 each N/A UD PRN PRN Reason: Consult Stop: 05/18/22 18:54 Nitroglycerin (Nitroglycerin Sl 0.4 Mg/Tab Tab) 0.4 mg SL UD PRN PRN Reason: Chest Pain Stop: 05/18/22 23:52 Ondansetron HCl (Ondansetron 4 Mg Od Tab) 4 mg PO Q6H PRN PRN Reason: Nausea And Vomiting Stop: 05/19/22 00:47 Polyethylene Glycol (Polyethylene (Miralax) 17 Gm Pack) 34 gm PO DAILY KIRT Stop: 05/19/22 08:59 Last Admin: 04/19/22 10:33 Dose: Not Given Senna/Docusate Sodium (Docusate Sodium/Senna 50/8.6mg Tab) 2 tab PO BID KIRT Stop: 05/19/22 08:59 Last Admin: 04/19/22 10:33 Dose: Not Given Vitamin B Complex/Folic Acid (Nephrocaps) 1 cap PO DAILY KIRT Stop: 05/19/22 08:59 Last Admin: 04/19/22 10:19 Dose: 1 cap
--- NOTE | 2022-04-19 14:22 | Pharmacy Report ---
Pharmacy PK ABX Note - Date of Service April 19, 2022 - Assessment and Plan Assessment 56 year old F receiving vancomycin/zosyn for treatment of GNB bacteremia/sacral ulcer. Patient with recent MRSA bacteremia, underwent BKA for osteo- plan for completed vanco therapy 04/17/22 (per hospitalist notes). Patient found to have GNB bacteremia at [facility]. Continuing vancomycin/zosyn- suspect sacral ulcer is polymicrobial. UC is no growth, BC here are pending. Patient has ESRD with dialysis (schedule TUTHSA) but does make some urine, also immunocompromised neuroendocrine tumor w/mets. Will dose vancomycin by levels. Level this AM 17.5. Plan Vancomycin * Received 1000 mg x 1 last evening * Give 500 mg x 1 * Random ordered for 04/20 AM Pharmacy will continue to follow and will adjust dose/frequency as necessary. Thank you. Pharmacy has transitioned to AUC monitoring for vancomycin. AUC/RUTHY is the preferred PK/PD target and is associated with decreased risk of nephrotoxicity compared to traditional trough targets.
--- NOTE | 2022-04-19 14:34 | CT Scan Report ---
CT abd pelvis wo con CLINICAL HISTORY: Sepsis. Anemia. Bleeding? TECHNIQUE: Helical axial images of the abdomen and pelvis were obtained. Automated dose lowering tech niques and/or adjustment according to patient size were utilized for this exam. This exam was perfor med without intravenous contrast. CT DOSE: 1035.85 mGy.cm COMPARISON: Comparison is made to CT abdomen pelvis 01/21/2022 FINDINGS: Lower chest: Bibasilar atelectasis versus scarring is seen. Liver: Unremarkable. No focal lesions are seen. Gallbladder and biliary tree: No calcified gallstones. Normal caliber wall. No intra- or extrahepatic biliary ductal dilation. Pancreas: Unremarkable, no focal lesions. Spleen: Splenomegaly is noted, the spleen measures 14.7 cm. Adrenals: Unremarkable. Kidneys and ureters: Stable intermediate density lesion in the left kidney. Bladder: Liz catheter is seen. Reproductive organs: Unremarkable. Bowel: Stool is noted to exit posteriorly in the presacral soft tissues. There is thickening of the r ectal soft tissues compatible with stercoral colitis. Diverticulosis is seen without diverticulitis. The appendix is normal. Lymph nodes Retroperitoneal: Unremarkable. Pelvic: Unremarkable. Mesenteric: Unremarkable. Peritoneum: Normal. Vessels: Monckeberg type calcifications are seen. Abdominal wall: There is subcutaneous emphysema in the sacral region. Body wall edema is seen. Soft t issue thickening in the anterior abdominal wall is seen. Bones: There is erosion and lucency about the coccyx which is new from prior exam, concerning for ost eomyelitis. Lytic focus in anterior L5 and pathologic burst fracture of L4 is noted, unchanged. IMPRESSION: 1. There is thickening of the rectum concerning for stercoral colitis. There is posterior leakage of stool, clinical correlation is recommended for enterocutaneous fistula. 2. Erosions at the coccyx with subcutaneous gas in the sacral soft tissues, concerning for osteomyel itis. 3. Additional findings as above. No evidence of intra-abdominal hemorrhage. 4. Stable intermediate density lesion in the left kidney. If further evaluation is desired, a noneme rgent ultrasound can be performed. A call was placed with the patient's provider at the time of dictation. ACT 112: Negative or not required by law. Electronically signed by: Rm Flores M.D. 04/19/2022 2:32 PM
--- NOTE | 2022-04-19 15:42 | Communication Note ---
Date of Service: April 19, 2022 I had a very radha discussion with Carlita with her and daughter present regarding her overall condition. She has been through quite a bit and she understands that she is nearing the end. She does keep reiterating that she wants to fight for as long as she can. I relayed to her the findings of the CT abdomen pelvis which are concerning for an enterocutaneous fistula and osteomyelitis. I also discussed this with Dr. Christine. Dr. Christine does not feel that she would survive surgery to treat the fistula. Of note, the patient follows with outpatient palliative care medicine in [place]. The topic of hospice has been broached with her before, but the patient has declined hospice services. I discussed CODE STATUS with the patient and she is agreement with transitioning to a DNR/DNI. We will continue critical care services otherwise. I will escalate her antibiotic therapy to include caspofungin. She is currently on vancomycin and Zosyn. Coding Level of Care Code Critical Care 1st 30-74 mins Time Spent (min) 33
[2022-04-19] MEDS: HYDROmorphone HCL 2 MG TAB PO PRN (15:49)
[2022-04-19] MEDS ORDERED: CASPOFUNGIN 70 MG in SODIUM CHLORIDE 0.9% 250 ML IV STA (15:50)
[2022-04-19] MEDS: MIDODRINE HCL 2.5 MG TAB PO SCH (18:52)
[2022-04-19] MEDS: LANTUS PER UNIT CHARGE SQ SCH (21:16)
[2022-04-19] MEDS: NOREPINEPHRINE/D5W 4 MG/250 ML PLCT IV SCH (21:30)
[2022-04-19 21:35] LABS: BUN Creatinine Ratio 15.7 (10-20); Calcium 8.8 mg/dl (8.5-10.1); Creatinine Clr Calc Pharmacy 15.9 ml/min; Est GFR (African American) 14.2 ml/min; Est GFR (Non-African American) 12.3 ml/min; Potassium 3.9 mmol/L (3.5-5.1)
[2022-04-20] MEDS: VASOPRESSIN 20 UNITS in 0.9 % SODIUM CHLORIDE 100 ML IV SCH (01:30)
[2022-04-20 05:12] LABS: BUN Creatinine Ratio 15.2 (10-20); Calcium 8.8 mg/dl (8.5-10.1); Creatinine Clr Calc Pharmacy 16.7 ml/min; Est GFR (African American) 13.7 ml/min; Est GFR (Non-African American) 11.8 ml/min; Magnesium 1.9 mg/dl (1.7-2.4); Phosphorus 4.7 mg/dl (2.5-4.9); Potassium 3.9 mmol/L (3.5-5.1)
[2022-04-20 05:43] LABS: Basophils # (auto) 0.02 K/uL (0-0.2); Basophils % (auto) 0.2 %; Eosinophils # (auto) 0.15 K/uL (0-0.50); Eosinophils % (auto) 1.3 %; Hemoglobin 8.5 g/dl (12.0-16.0); Immature Granulocytes # (auto) 0.04 K/uL (0.00-0.02); Immature Granulocytes % (auto) 0.4 %; Lymphocytes % (auto) 9.8 %; Mean Corpuscular Hemoglobin 30.1 pg (25.0-34.0); Mean Corpuscular Hgb Conc 31.5 g/dL (32.0-36.0); Mean Corpuscular Volume 95.7 fL (80.0-100.0); Mean Platelet Volume 9.9 fL (9.4-12.3); Monocytes # (auto) 0.57 K/uL (0.24-0.82); Monocytes % (auto) 5.1 %; Neutrophils # (auto) 9.29 K/uL (1.4-6.5); Neutrophils % (auto) 83.2 %; Platelet Count 180 K/uL (130-400); RDW Coefficient of Variation 17.3 % (11.5-14.5); RDW Standard Deviation 60.3 fL (36.4-46.3); Red Blood Count 2.82 M/uL (3.93-5.22); White Blood Count 11.17 K/ul (4.8-10.8)
[2022-04-20] MEDS: METHADONE HCL 10 MG TAB PO SCH ×3 (06:01→21:40)
[2022-04-20] MEDS: METHADONE HCL 5 MG TAB PO SCH ×3 (06:02→21:40)
[2022-04-20] MEDS: LEVOTHYROXINE SODIUM 125 MCG TABLET PO SCH (06:02)
[2022-04-20] MEDS ORDERED: SODIUM CHLORIDE 0.9% 1000ML 1,000 ML IV PRN (07:00)
[2022-04-20] MEDS: INSULIN ASPART PER UNIT SC SCH ×4 (08:24→21:40)
--- NOTE | 2022-04-20 08:25 | Critical Care Progress Note ---
Date of Service April 20, 2022 Assessment & Plan (1) Sepsis: (2) Anemia: (3) CKD (chronic kidney disease): (4) Sacral decubitus ulcer, stage IV: (5) Diabetes: (6) Neuroendocrine tumor: (7) ESRD (end stage renal disease): Plan 56 y/o F w/ PmHx neuroendocrine tumor with metastasis s/p radiation, hx burst fracture to T6 causing paraplegia, stage IV sacral wound ulcer, s/p R BKA, T2DM admitted for hypotension and sepsis secondary to gram negative bacteremia from [facility]. Neuro [facility] ICU: negative Sedation/Analgesia: none Chronic Pain 2/2 T6 Burst Fracture: -Turn and reposition q2h. Wound care consulted. -Continue Tylenol, methadone, hydromorphone, gabapentin. Cardiac Hypotension: -Most likely secondary to septic shock from reported gram negative bacteremia. -Supported on Levophed on admission. Titrating down, MAPs have been >65. -Continue midodrine 5mg TID. -Will titrate off of Levophed today. -Sepsis treatment as below. Respiratory No history of lung disease, CXR w/ new small L basilar patchy airspace opacity likely PNA. Continue sepsis treatment as below. O2 as needed for saturations <88%. GI Transaminitis: -AST 249, ALT 193, Alk phos 206, T Bili 0.8 on admission. -Most likely secondary to hypoperfusion. -Can trend to check for resolution. Stercoral Colitis w/ Enterocutaneous Fistula: -CT A&P with evidence of leakage of stool concerning for enterocutaneous fistula. -Patient without complaint of abdominal pain or cramping. -Continue daily MiraLAX, docusate BID. -Wound care consulted. -Surgery following, appreciate recs. Renal/Electrolytes ESRD on Dialysis: -Na mildly hyponatremic at 134, however K and Cl WNL. -Patient on HD MWF. Nephrology consulted, patient to go for HD today. Liz catheter in place due to potential source for infection or re-infection. Monitor I&Os. Endo ICU hypoglycemia protocol Heme Anemia: -Hgb 5.9 on admission. Transfused 2U PRBCs. -CT A&P w/o evidence for intra-abdominal hemorrhage. -No source of acute bleeding evident from scan, may be 2/2 ESRD. -Hgb 8.5 this AM, continue to trend, transfuse for Hgb <7. ID Sepsis 2/2 Reported Gram - Bacteremia: -Reported Gram negative blood cultures from facility prior to arrival. Blood cultures on admission negative x24hrs. -Hypotensive to 80's/40's upon arrival - started on Levophed. -WBC 14.30, lactate 2.4, procal 11.36. -CT A&P w/ evidence of posterior leakage of stool concerning for enterocutaneous fistula, erosions at coccyx with subcutaneous gas. -Possible source of infection from sacral ulcer or enterocutaneous fistula. -On Vancomycin (given past history of MRSA), Zosyn for empiric coverage. -Harlan attempt to get records from [facility] for bacteria identified in blood. -Continue to monitor. Stage IV Sacral Ulcer: -CT A&P as above. -Wound care consulted. Lines/IV Access R radial arterial line, peripheral IV, R arm fistula for dialysis. DVT Prophylaxis SCD R leg. Holding off on anticoagulation therapy due to concern for bleed. Code Status: DNR/DNI. Dispo: ICU. Admission and Anticipated Discharge Date Admission Date: April 18, 2022 Supervising Physician Co-Signing Physician Notes Dr. Padgett was the resident-physician during care of patient. I separately evaluated patient for roa portions of the history and the exam. I was present during the critical portion of medical decision making, and I discussed the case with the resident. I generally agree with the findings and plan except for any additions/exceptions noted. Patient seen and examined at bedside. No acute distress, no adverse events overnight Patient was having breakfast at the time of examination She denies any abdominal pain, no nausea, no vomiting. No headache, no blurry vision She was saturating 99% on 2 L nasal cannula. I was able to take the patient off the oxygen She was on 0.03 of Levophed. Constitutional: No acute distress HEENT: EOMI, PERRLA Respiratory system: Decreased air entry bilaterally, no wheeze, rhonchi, positive crackles bilateral lower lobes more on the right side CVS: S1-S2 positive, no murmurs or gallops Abdomen: Soft, nontender, nondistended, positive bowel sounds x4 Extremities: +2 pulses bilaterally radialis/ dorsalis pedis, no cyanosis, no edema, left BKA Neuro: Awake alert oriented x3 Psych: Normal mood and affect G/U: Positive Liz --Prophylaxis VTE: IPC GI: Pepcid Lines: Right femoral and right radial Diet: Renal Plan: Patient has a possibility of osteomyelitis of the sacrum and also enterocutaneous fistula. Surgery is on board, will try to get input from them with a they are planning to do any surgery/debridement. Continue with vasopressor support for the time being and try to titrated off. Will consider increasing midodrine to 10 mg 3 times daily Continue with antibiotics vancomycin and Zosyn. Patient apparently had gram-negative bacteremia at [facility]. We will try to get sensitivities from there. Blood cultures have been negative while she was in the hospital here I have personally spent 35 minutes of critical care time in the direct management of this patient. This is a life/limb threatening event. This includes time spent evaluating patient, direct bedside care, chart review, placing orders, interpretation of diagnostic studies, discussion with consultants, patient, and/or family members regarding treatment decisions, as well as other required patient management activities. This time is exclusive of all separately billable procedures, and teaching time and separate from and in addition to any other critical care service time. Subjective Patient seen at the bedside this morning without any complaints. She states she is unsure about whether the surgeons will take her for operation today. She states she had a catheter put in at [facility] due to her urination causing concern over reinfection of chronic sacral wound but states she was able to urinate fine on her own prior. She has been eating well, denies any fevers, chills, headaches, shortness of breath, chest pain. Review of Systems Review of Systems: As per HPI. Physical Exam Constitutional: WD/WN, vitals as above Patient resting comfortably in the bed eating breakfast. Eyes: PERRL, conjunctivae normal, anicteric sclerae Respiratory: Bibasilar crackles, clear to auscultation elsewhere. Cardiovascular: RRR, no murmur, no edema Gastrointestinal (Abdomen): normal bowel sounds, soft, nontender, no hepatosplenomegaly Skin: BKA of L leg. No anterior abdominal or pelvic ulcerations visualized. Psychiatric: A+Ox3, euthymic affect Results & Data Results & Data ([facility]) Vital Signs (Past 12 Hours) Vital Signs Temp Pulse Resp BP Pulse Ox Pulse Ox O2 Del Method 04/20/22 07:40 83 04/20/22 06:00 75 15 109/56 L 98 Nasal Cannula 04/20/22 05:30 72 12 99 Nasal Cannula 04/20/22 05:00 73 15 103/47 L 100 Nasal Cannula 04/20/22 04:30 81 17 99 Nasal Cannula 04/20/22 04:00 36.6 C 76 20 114/60 99 Nasal Cannula 04/20/22 03:30 71 14 98 Nasal Cannula 04/20/22 03:00 70 16 124/54 L 98 Nasal Cannula 04/20/22 02:30 72 19 99 Nasal Cannula 04/20/22 02:00 72 14 127/58 L 100 Nasal Cannula 04/20/22 01:30 71 14 99 Nasal Cannula 04/20/22 01:00 72 20 110/51 L 99 Nasal Cannula 04/20/22 00:30 69 15 99 Nasal Cannula 04/20/22 00:00 36.6 C 69 20 98/49 L 99 Nasal Cannula 04/19/22 23:30 70 16 100 Nasal Cannula 04/19/22 23:53 99 04/19/22 23:00 68 12 100 Nasal Cannula 04/19/22 22:30 69 14 100 Nasal Cannula 04/19/22 22:00 67 18 100 Nasal Cannula 04/19/22 21:30 72 19 100 Nasal Cannula 04/19/22 21:00 78 24 100 Nasal Cannula 04/19/22 20:30 74 18 100 Nasal Cannula O2 Del Method O2 Flow Rate O2 Flow Rate 04/20/22 07:40 04/20/22 06:00 2 04/20/22 05:30 2 04/20/22 05:00 2 04/20/22 04:30 2 04/20/22 04:00 2 04/20/22 03:30 2 04/20/22 03:00 2 04/20/22 02:30 2 04/20/22 02:00 2 04/20/22 01:30 2 04/20/22 01:00 2 04/20/22 00:30 2 04/20/22 00:00 2 04/19/22 23:30 2 04/19/22 23:53 Nasal Cannula 2 04/19/22 23:00 2 04/19/22 22:30 2 04/19/22 22:00 2 04/19/22 21:30 2 04/19/22 21:00 2 04/19/22 20:30 2 Resident Activity Tracking Resident Involvement: Resident Care Provided Care Provided: Adult Hospital Medicine
[2022-04-20] MEDS: DOCUSATE SODIUM/SENNA 50/8.6MG TAB PO SCH ×2 (08:30→21:41)
[2022-04-20] MEDS: FAMOTIDINE 20 MG TAB PO SCH (08:30)
[2022-04-20] MEDS: GABAPENTIN 100 MG CAP PO SCH ×2 (08:30→11:58)
[2022-04-20] MEDS: POLYETHYLENE (MIRALAX) 17 GM PACK PO SCH ×2 (08:30→10:48)
[2022-04-20] MEDS: MIDODRINE HCL 2.5 MG TAB PO SCH ×3 (08:30→17:10)
[2022-04-20] MEDS: NEPHROCAPS PO SCH (08:30)
[2022-04-20] MEDS: LIDOCAINE 5% 1 PATCH TD SCH (08:31)
[2022-04-20] MEDS: COLLAGENASE OINT 30 GM TUBE TOP SCH (08:32)
[2022-04-20] MEDS ORDERED: ICU Protocol for HYPERglycemia PRN (08:44)
[2022-04-20] MEDS: PIPERACILLIN/TAZOBACTAM 4.5 GM in DEXTROSE 5% 100 ML IV SCH ×2 (09:59→21:41)
[2022-04-20] MEDS: HYDROmorphone HCL 2 MG TAB PO PRN (12:01)
--- NOTE | 2022-04-20 12:03 | Billing Data ---
Date of Service April 20, 2022 Coding Level of Care Code Critical Care 1st 30-74 mins Time Spent (min) 35
--- NOTE | 2022-04-20 12:59 | Dialysis Progress Note ---
Date of Service April 20, 2022 Assessment & Plan Admission and Anticipated Discharge Date Admission Date: April 18, 2022 Subjective (1) Severe sepsis with septic shock: from proteus bacteremia in the setting of at least 2 unstageable pressure ulcers and fecal incontinence, chronic urinary catheter. also w/ recent MRSA bacteremia in February, just finishing tx and w/ only one set of blood cxs at rehab. -f/u pending CT scan and blood cxs >> CT scan as above -cont zosyn and vanco; critical care adding caspofungin coverage -low threshold for TTE, for Inf Dzs consult -I&D had been contemplated for AM; unclear if this will still be relevant given CT findings (2) ESRD (end stage renal disease) on dialysis: Dialysis today as ordered. No e/o major fluid overload and very low BP needing levophed. take 1 kilo off maybe with some help from levophed. 3 k bath (3) Anemia: agree w/ plans to transfuse to keep hgb > 7. not a candidate for AMEENA therapy current or IV iron. S--seen for dialysis. BP is low. Access is fine. Some confusion present. No SOb and no o2. Physical Exam Constitutional: well developed, + cachectic, + physical limitations, + frail appearing and cooperative; no acute distress and no altered mental status Eyes: EOM intact bilaterally ENMT: Ears: no external ear abnormality Nose: no external nose abnormality Mouth: + dry oral mucous membranes Neck: no nuchal rigidity Respiratory: normal respiratory effort Auscultation: + diminished lung sounds Cardiovascular: Rate/Rhythm: regular rate and regular rhythm Heart Sounds: normal S1 and normal S2 Extremities: + AV fistula (LUE) Gastrointestinal (Abdomen): Inspection/Auscultation: normal bowel sounds Percussion/Palpation: abdomen soft; abdomen nontender Musculoskeletal: Extremities: strength 5/5 throughout Skin: no rashes, warm and dry backside not examined; large L patellar abrasion Neurologic: rodriguez, fluent speech, no tremor Psychiatric: Orientation: oriented x 3 Speech: normal rate/rhythm/volume of speech (hoarse, soft as it has been most recently) Genitourinary: woodruff present Results & Data ([facility]) Vital Signs (Past 12 Hours) Vital Signs Temp Pulse Pulse Resp BP Pulse Ox O2 Del Method 04/20/22 12:30 83 95/54 L 11/14/22 12:00 82 108/62 04/20/22 11:45 78 13 100 04/20/22 11:45 122/51 L 04/20/22 11:30 83 18 97 04/20/22 11:30 79/46 L 04/20/22 11:15 92 H 19 100 04/20/22 11:15 92/49 L 04/20/22 11:00 93 H 23 88 L 04/20/22 11:00 106/61 04/20/22 10:45 90 24 65 L 04/20/22 10:45 121/84 04/20/22 10:41 103/54 L 04/20/22 10:41 93 H 24 98 04/20/22 10:31 113/79 04/20/22 10:31 93 H 18 98 04/20/22 10:30 91 H 15 84 L 04/20/22 10:15 85 16 91 04/20/22 10:15 106/49 L 04/20/22 10:00 90 19 97 04/20/22 10:00 100/50 L 04/20/22 09:45 89 14 88 L 04/20/22 09:45 99/52 L 04/20/22 09:30 87 15 100 04/20/22 09:30 124/54 L 04/20/22 09:15 81 16 98 04/20/22 09:15 137/57 L 04/20/22 09:00 89 15 100 04/20/22 09:00 143/64 H 04/20/22 08:45 88 22 87 L 04/20/22 08:45 130/96 04/20/22 08:30 91 H 15 76 L 04/20/22 08:30 119/60 04/20/22 08:20 110/56 L 04/20/22 08:20 91 H 18 92 04/20/22 08:16 90 14 89 L 04/20/22 08:16 99/78 L 04/20/22 08:15 90 15 90 04/20/22 08:00 90 16 04/20/22 08:00 94/48 L 04/20/22 07:45 88 16 95 04/20/22 07:30 82 13 98 04/20/22 07:15 73 17 98 04/20/22 07:00 74 14 04/20/22 07:00 113/49 L 04/20/22 06:45 74 17 99 04/20/22 06:30 81 15 98 04/20/22 06:15 86 18 100 04/20/22 11:45 75 122/51 L 04/20/22 11:30 92 H 79/46 L 04/20/22 11:15 87 92/49 L 04/20/22 11:00 36.8 C 89 04/20/22 07:40 83 04/20/22 06:00 75 15 109/56 L 98 Nasal Cannula 04/20/22 05:30 72 12 99 Nasal Cannula 04/20/22 05:00 73 15 103/47 L 100 Nasal Cannula 04/20/22 04:30 81 17 99 Nasal Cannula 04/20/22 04:00 36.6 C 76 20 114/60 99 Nasal Cannula 04/20/22 03:30 71 14 98 Nasal Cannula 04/20/22 03:00 70 16 124/54 L 98 Nasal Cannula 04/20/22 02:30 72 19 99 Nasal Cannula 04/20/22 02:00 72 14 127/58 L 100 Nasal Cannula 04/20/22 01:30 71 14 99 Nasal Cannula 04/20/22 01:00 72 20 110/51 L 99 Nasal Cannula O2 Flow Rate 04/20/22 12:30 04/20/22 12:00 04/20/22 11:45 04/20/22 11:45 04/20/22 11:30 04/20/22 11:30 04/20/22 11:15 04/20/22 11:15 04/20/22 11:00 04/20/22 11:00 04/20/22 10:45 04/20/22 10:45 04/20/22 10:41 04/20/22 10:41 04/20/22 10:31 04/20/22 10:31 04/20/22 10:30 04/20/22 10:15 04/20/22 10:15 04/20/22 10:00 04/20/22 10:00 04/20/22 09:45 04/20/22 09:45 04/20/22 09:30 04/20/22 09:30 04/20/22 09:15 04/20/22 09:15 04/20/22 09:00 04/20/22 09:00 04/20/22 08:45 04/20/22 08:45 04/20/22 08:30 04/20/22 08:30 04/20/22 08:20 04/20/22 08:20 04/20/22 08:16 04/20/22 08:16 04/20/22 08:15 04/20/22 08:00 04/20/22 08:00 04/20/22 07:45 04/20/22 07:30 04/20/22 07:15 04/20/22 07:00 04/20/22 07:00 04/20/22 06:45 04/20/22 06:30 04/20/22 06:15 04/20/22 11:45 04/20/22 11:30 04/20/22 11:15 04/20/22 11:00 04/20/22 07:40 04/20/22 06:00 2 04/20/22 05:30 2 04/20/22 05:00 2 04/20/22 04:30 2 04/20/22 04:00 2 04/20/22 03:30 2 04/20/22 03:00 2 04/20/22 02:30 2 04/20/22 02:00 2 04/20/22 01:30 2 04/20/22 01:00 2
[2022-04-20] MEDS: NOREPINEPHRINE/D5W 4 MG/250 ML PLCT IV SCH (14:22)
--- NOTE | 2022-04-20 14:23 | Pharmacy Report ---
Pharmacy PK ABX Note - Date of Service April 20, 2022 - Assessment and Plan Assessment 56 year old F receiving vancomycin/zosyn for treatment of GNB bacteremia/sacral ulcer. Patient with recent MRSA bacteremia, underwent BKA for osteo- plan for completed vanco therapy 04/17/22 (per hospitalist notes). Patient found to have GNB bacteremia at [facility]. Continuing vancomycin/zosyn- suspect sacral ulcer is polymicrobial. UC is no growth, BC here are pending. Patient has ESRD with dialysis (schedule TUTHSA) but does make some urine, also immunocompromised neuroendocrine tumor w/mets. Will dose vancomycin by levels. Level this AM (04/20) 20.7 Plan Vancomycin * Received 500 mg x yesterday afternoon * Will give 500 mg x 1 post dialysis today * Next level due on the morning of next HD session Pharmacy will continue to follow and will adjust dose/frequency as necessary. Thank you. Pharmacy has transitioned to AUC monitoring for vancomycin. AUC/RUTHY is the preferred PK/PD target and is associated with decreased risk of nephrotoxicity compared to traditional trough targets.
[2022-04-20] MEDS ORDERED: VANCOMYCIN HCL 500 MG in DEXTROSE 5% 100 ML IV SCH (16:00)
[2022-04-20 16:50] LABS: Hematocrit (blood only) 25.4 % (34.1-44.9); Hemoglobin 8.1 g/dl (12.0-16.0)
[2022-04-20] MEDS ORDERED: MIDODRINE HCL 2.5 MG TAB PO ONE (18:09)
[2022-04-20] MEDS: LANTUS PER UNIT CHARGE SQ SCH (21:40)
[2022-04-21 04:22] LABS: Basophils # (auto) 0.04 K/uL (0-0.2); Basophils % (auto) 0.3 %; Eosinophils # (auto) 0.12 K/uL (0-0.50); Eosinophils % (auto) 0.9 %; Hematocrit (blood only) 23.8 % (34.1-44.9); Hemoglobin 7.5 g/dl (12.0-16.0); Immature Granulocytes # (auto) 0.18 K/uL (0.00-0.02); Immature Granulocytes % (auto) 1.4 %; Lymphocytes # (auto) 1.46 K/uL (1.2-3.4); Lymphocytes % (auto) 11.2 %; Mean Corpuscular Hemoglobin 30.6 pg (25.0-34.0); Mean Corpuscular Hgb Conc 31.5 g/dL (32.0-36.0); Mean Corpuscular Volume 97.1 fL (80.0-100.0); Mean Platelet Volume 9.5 fL (9.4-12.3); Monocytes # (auto) 0.76 K/uL (0.24-0.82); Monocytes % (auto) 5.8 %; Neutrophils # (auto) 10.53 K/uL (1.4-6.5); Neutrophils % (auto) 80.4 %; Platelet Count 168 K/uL (130-400); RDW Coefficient of Variation 17.3 % (11.5-14.5); RDW Standard Deviation 62.2 fL (36.4-46.3); Red Blood Count 2.45 M/uL (3.93-5.22); White Blood Count 13.09 K/ul (4.8-10.8)
[2022-04-21 05:01] LABS: Albumin Globulin Ratio 0.4 (0.9-2); BUN Creatinine Ratio 14.4 (10-20); Bilirubin,Total 0.6 mg/dl (0.2-1.0); Calcium 8.7 mg/dl (8.5-10.1); Creatinine Clr Calc Pharmacy 20.7 ml/min; Est GFR (African American) 19.6 ml/min; Est GFR (Non-African American) 16.9 ml/min; Globulin 4.7 gm/dl (2.5-4.0); Magnesium 1.8 mg/dl (1.7-2.4); Phosphorus 3.3 mg/dl (2.5-4.9); Potassium 3.7 mmol/L (3.5-5.1); Total Protein 6.7 gm/dl (6.0-8.3)
[2022-04-21] MEDS: METHADONE HCL 5 MG TAB PO SCH ×3 (05:31→21:15)
[2022-04-21 05:51] LABS: Polychromasia 1+
[2022-04-21] MEDS: METHADONE HCL 10 MG TAB PO SCH ×3 (05:56→21:10)
[2022-04-21] MEDS: LEVOTHYROXINE SODIUM 125 MCG TABLET PO SCH (05:56)
--- NOTE | 2022-04-21 08:14 | Critical Care Progress Note ---
Date of Service April 21, 2022 Assessment & Plan (1) Sepsis: (2) Anemia: (3) CKD (chronic kidney disease): (4) Sacral decubitus ulcer, stage IV: (5) Diabetes: (6) Neuroendocrine tumor: (7) ESRD (end stage renal disease): Plan 56 y/o F w/ PmHx neuroendocrine tumor with metastasis s/p radiation, hx burst fracture to T6 causing paraplegia, stage IV sacral wound ulcer, s/p R BKA, T2DM admitted for hypotension and sepsis secondary to gram negative bacteremia from [facility]. Neuro CAM ICU: negative Sedation/Analgesia: none Chronic Pain 2/2 T6 Burst Fracture: -Turn and reposition q2h. Wound care consulted. -Continue Tylenol, methadone, hydromorphone, gabapentin. Cardiac Hypotension: -Most likely secondary to septic shock from reported gram negative bacteremia. -Supported on Levophed on admission. Titrating down, MAPs have been >65. -Continue midodrine 10mg TID. -Has been off Levophed for more than 12 hours, maintaining MAP, asymptomatic. -Sepsis treatment as below. Respiratory No history of lung disease, CXR w/ new small L basilar patchy airspace opacity likely PNA. Continue sepsis treatment as below. O2 as needed for saturations <88%. GI Transaminitis: -AST 249, ALT 193, Alk phos 206, T Bili 0.8 on admission. -Repeat trending down. -Most likely secondary to hypoperfusion. Stercoral Colitis w/ Enterocutaneous Fistula: -CT A&P with evidence of leakage of stool concerning for enterocutaneous fistula. -Patient without complaint of abdominal pain or cramping. -Continue daily MiraLAX, docusate BID. -Wound care consulted. -Surgery following, patient would be poor surgical candidate, recommended conservative/medical care at this time. Renal/Electrolytes ESRD on Dialysis: -Na mildly hyponatremic at 134, however K and Cl WNL. -Patient on HD MWF. Nephrology consulted. Liz catheter in place due to potential source for infection or re-infection. Monitor I&Os. Endo ICU hypoglycemia protocol Heme Anemia: -Hgb 5.9 on admission. Transfused 2U PRBCs. -CT A&P w/o evidence for intra-abdominal hemorrhage. -No source of acute bleeding evident from scan, may be 2/2 ESRD. -Hgb 7.5 this AM from 8.1. -Ordered fecal occult test. -continue to trend, transfuse for Hgb <7. ID Sepsis 2/2 Reported Gram - Bacteremia: -Reported Gram negative blood cultures from facility prior to arrival. Blood cultures on admission negative x48hrs. -Hypotensive to 80's/40's upon arrival - started on Levophed. -WBC 14.30, lactate 2.4, procal 11.36. -CT A&P w/ evidence of posterior leakage of stool concerning for enterocutaneous fistula, erosions at coccyx with subcutaneous gas. -Possible source of infection from sacral ulcer or enterocutaneous fistula. -On Vancomycin (given past history of MRSA), Zosyn for empiric coverage. -Harlan attempt to get [facility] identified in blood. -Continue to monitor. Stage IV Sacral Ulcer: -CT A&P as above. -Wound care consulted. Lines/IV Access Peripheral IV, R arm fistula for dialysis. DVT Prophylaxis SCD R leg. Holding off on anticoagulation therapy due to concern for bleed. Code Status: DNR/DNI. Dispo: ICU. Off pressors, okay to downgrade. Patient to speak with Palliative care on further disposition and goals of care given most likely will have repeat infection in the future from sacral ulcer source. Admission and Anticipated Discharge Date Admission Date: April 18, 2022 Supervising Physician Co-Signing Physician Notes Dr. Padgett was the resident-physician during care of patient. I separately evaluated patient for roa portions of the history and the exam. I was present during the critical portion of medical decision making, and I discussed the case with the resident. I generally agree with the findings and plan except for any additions/exceptions noted. Patient seen and examined at bedside. No acute distress, no adverse events overnight Patient was little bit drowsy at the time of examination. She was having her breakfast. Denied any chest pain, no shortness of breath, no headache, no nausea, no vomiting No abdominal pain. Did complain of mild pain at the back. Levophed has been off since 5 PM yesterday Constitutional: No acute distress HEENT: EOMI, PERRLA Respiratory system:Decreased air entry bilaterally, no wheeze, rhonchi, positive crackles bilateral lower lobes more on the right side CVS: S1-S2 positive, no murmurs or gallops Abdomen: Soft, nontender, nondistended, positive bowel sounds x4 Extremities: +2 pulses bilaterally radialis/ dorsalis pedis, no cyanosis, no edema,left BKA with eschar on the patella Neuro: Awake alert oriented x3 Psych: Normal mood and affect G/U: Positive Liz --Prophylaxis VTE: IPC GI: Pepcid Lines: Right femoral and right radial Diet: Renal Plan: Has been off Levophed as of 5 PM last night Midodrine has been increased to 10 mg 3 times daily There has been drop in her hemoglobin gradually in the last couple of days. There is no clear source of bleeding. This could be from the infection that she has. Repeat H&H at 12. Given the hemodynamic stability it is okay for the patient to be downgrade to medical floor Patient is DNR/DNI and there will be no escalation of care. Palliative care to see the patient today hopefully. This case was discussed with Dr. Parmar Please note the above document was generated using voice recognition software. It may contain grammatical, syntax or spelling errors.Any formal questions or concerns about the content, text or information contained within the body of this dictation should be directly addressed to the provider for clarification. Subjective Patient seen at the bedside this morning without any acute complaints. She denies any nausea, vomiting, fevers, chills, shortness of breath, chest pain. She states she is having some of her usual back pain but will request some pain medications for it. She inquired about what will happen with disposition planning for her. We talked with her about source of infection being most likely the sacral ulcers as well as how she is not a good surgical candidate for debridement. We let her know most likely another infection will return and told her she will need to think about what she would like to focus on if that were the case - coming back in to the hospital for IV antibiotic and possibly pressor treatment similar to this admission vs focusing on comfort care. Review of Systems Review of Systems: As per HPI. Physical Exam Constitutional: WD/WN, vitals as above Patient resting comfortably in bed eating breakfast. Respiratory: Bibasilar crackles, clear to auscultation elsewhere. Cardiovascular: RRR, no murmur, no edema Gastrointestinal (Abdomen): normal bowel sounds, soft, nontender, no hepatosplenomegaly Skin: BKA left leg, bilateral legs with chronic wounds and eschar. Psychiatric: A+Ox3, euthymic affect Results & Data Results & Data ([facility]) Vital Signs (Past 12 Hours) Vital Signs Temp Pulse Resp BP Pulse Ox 04/21/22 06:00 86 14 101/56 L 99 04/21/22 05:00 82 13 99 04/21/22 05:00 98/50 L 04/21/22 04:05 72 17 99 04/21/22 04:05 96/47 L 04/21/22 04:20 37.0 C 04/21/22 00:00 36.5 C 04/21/22 03:00 75 15 99 04/21/22 03:00 112/54 L 04/21/22 02:00 70 14 100 04/21/22 02:00 91/42 L 04/21/22 01:14 94/47 L 04/21/22 01:14 79 14 99 04/21/22 01:00 74 13 92/48 L 04/21/22 00:07 85 04/21/22 00:00 94 H 20 134/69 95 04/20/22 23:00 72 18 103/47 L 100 04/20/22 22:00 89 16 123/61 100 04/20/22 21:30 88 18 134/65 100 04/20/22 21:00 89 19 143/67 H 100 04/20/22 20:30 79 18 121/55 L 100 Resident Activity Tracking Resident Involvement: Resident Care Provided Care Provided: Adult Hospital Medicine
[2022-04-21] MEDS: HYDROmorphone HCL 2 MG TAB PO PRN (08:15)
[2022-04-21] MEDS: NEPHROCAPS PO SCH (08:17)
[2022-04-21] MEDS: GABAPENTIN 100 MG CAP PO SCH (08:18)
[2022-04-21] MEDS: LIDOCAINE 5% 1 PATCH TD SCH (08:19)
[2022-04-21] MEDS: MIDODRINE HCL 10 MG TAB PO SCH ×3 (08:19→16:31)
[2022-04-21] MEDS: DOCUSATE SODIUM/SENNA 50/8.6MG TAB PO SCH ×2 (08:20→21:06)
[2022-04-21] MEDS: COLLAGENASE OINT 30 GM TUBE TOP SCH (08:20)
[2022-04-21] MEDS: POLYETHYLENE (MIRALAX) 17 GM PACK PO SCH (08:21)
[2022-04-21] MEDS: INSULIN ASPART PER UNIT SC SCH ×4 (08:21→20:59)
[2022-04-21] MEDS: PIPERACILLIN/TAZOBACTAM 4.5 GM in DEXTROSE 5% 100 ML IV SCH ×2 (08:23→21:03)
[2022-04-21] MEDS: NOREPINEPHRINE/D5W 4 MG/250 ML PLCT IV SCH (08:53)
--- NOTE | 2022-04-21 11:39 | Billing Data ---
Date of Service April 21, 2022 Coding Level of Care Code 72901 Subseq Hosp Care Lvl 2
[2022-04-21 12:29] LABS: Hematocrit (blood only) 26.5 % (34.1-44.9); Hemoglobin 8.3 g/dl (12.0-16.0)
--- NOTE | 2022-04-21 12:32 | Palliative Care Consultation ---
Date of Consultation April 21, 2022 Assessment & Plan (1) Palliative care encounter: I met with patient and her , Jan, at the bedside. I asked them what they have been updated about and understood about her current medical situation. Patient advised that she has been made aware that there are no more fixable issues. She understands that her issues at this point are chronically progressing and reaching end stages and that her infection is not curable. 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 She asked me if continuing dialysis would offer her a meaningful benefit at this time. I advised her that in the context of her other worsening and incurable medical issues, I did not feel that dialysis would prolong her life with any meaningful quality. Carlita tells me that she wants to make him most of the time she has left and she wants to be home with her family. Jan shares that their daughter has already obtained permission to work remotely and will be home with patient through the day and he will be with her through the evening and overnight. Additional family members will also be available to help and patient has been reassured she will not be home alone. Patient verbalizes a fear of dying alone and family continues to reassure her that they will remain by her side until the end. We had a long discussion about the services offered through hospice.I have provided education about the hospice benefit. Hospice is an interdisciplinary program offered by nurses, nurses aides, social workers, chaplains and a medical office technician for patients with a terminal condition and a life expectancy of less than 6 months. The goal would be to improve the quality of life of the patient in their home setting (home, longterm, inpatient hospice setting) by providing symptoms management, psychosocial and spiritual support. However, they cannot offer 24 hours care and if the family is unable to provide that care, they will have to consider personal care with out of pocket cost vs. longterm placement. Carlita and her would like to be discharged home with hospice. She does not wish to continue dialysis. She understands that we will review her medication list and continue what is necessary for comfort but we will stop the nonessential medications and streamline things so that it is easier for her. She expressed a sincere appreciation for this and states that what she just wants to focus on at this point is being comfortable. Carlita asked me what to expect as her condition worsens. She also asked me how long I thought she had to lift.Pt/family were educated re EOL w/ESRD:Pt stopping dialysis may live anywhere from one week to several weeks, depending on the amount of kidney function they have left and their overall medical condition.In hospitalized patients who stopped dialysis,confusion/agitation was reported to affect 70% of patients, followed by pain (55%), dyspnea (48%), nausea (36%), twitching/seizures (27%), anxiety/psychological distress (27%), pruritis (24%), and peripheral edema (21%).I advised thatmean survival following dialysis withdrawal is 8-10 days (although rarely can be many weeks); would note that advanced age, multiple comorbidities+frailty, I anticipate this will be shorter anticipated survival. I encouraged family to notify others who may want to visit or speak with pt, as periods of lucidity will decline as ESRD progresses along this EOL trajectory. I addressedthe likelihood of progressive encephalopathy. Reassuredpatient/familythat symptoms can be adequately treatedbut drugs with sedating side effects may be necessary to ensure comfort. Discusseddiet: provide pt witha liberal, pleasure-based dietto focus on comfort and QOL, acknowledging that this mayworsen symptoms from edema. (Sources: - https://www.mypcnow.org/fast-fact/brcyzhbkogrmcvp-mm-elvdhpgd-receiving-dialysis / -Perico GTZ. End-of-life care preferences and needs: perceptions of patients with chronic kidney disease. Clinical Journal of the [place] [employer]ph[employer]: CJASN. 2010;5:195-204. -Yousif KF, Glenn B, Abhishek V and Teddy WALKER. Employment among Patients S tarting Dialysis in the [place]. Clinical Journal of the [place] [employer]phrology: CJASN. 2018. -Jacob LM, Vishnu MJ, Justin DM. Practical considerations in dialysis withdrawal. To have that option is a blessing. JEROMY. 2003; 289:0107-7651. -Perico GTZ and Francia GS. Impact of pain and symptom burden on the health- related quality of life of hemodialysis patients. Journal of Pain and Symptom Management. 2010;39:477-85.) (2) Advanced care planning/counseling discussion: As noted above. Patient and family would like to discharge home with hospice. I reviewed with her that case management will help coordinate this discharge as well as the delivery of any DME they may need. We discussed timing for cessation of dialysis. Since she is already scheduled for dialysis session tomorrow, I advised her that I would receive this session so that we can optimize her to the best possible state we can prior to her discharge. I also feel that this will help keep her as mentally clear she can be so that she has the opportunity to have some final conversations with her family. I encouraged her to have some private time to speak to each individual family member so that she can have the space she needs to say which she needs to say to each of them individually. She was grateful for this discussion and expressed her appreciation. She is agreeable to transition to a comfort focused plan of care, no further monitoring, labs or interventions apart from the dialysis session tomorrow as planned to allow for some optimization prior to discharge home with hospice. (3) Cancer related pain: (4) Severe sepsis with septic shock: (5) ESRD (end stage renal disease) on dialysis: (6) Sacral decubitus ulcer, stage IV: (7) Neuroendocrine tumor: (8) Burst fracture of thoracic vertebra: T^ burst fracture d/t metastatic disease Plan Plan as outlined above. I have updated the primary team, nursing, case management. Patient will be [facility] to [facility] later today. Kate Shrestha DNP Clinical Director, Palliative Medicine History of Present Illness Reason for Consultation: "Goals of care" Attending Physician: Hugo Parmar MD History of Present Illness Mrs. Wilkins is a 56yo female admitted 04/19/22 as a transfer from her rehab center with transferred here for +BC with gram-negative bacilli. She was given 2gm Rocephin prior to ER transport. Per admitting note: pt has a hx of DM, ESRD on HD, diabetic polyneuropathy, HLD, hypothyroidism, HTN, hx osteomyelitis s/p Left BKA, anemia of CKD, metastatic neuroendocrine cancer/not a candidate for chemotherapy/ s/p XRT, +T6 burst fracture causing paraplegia, Stage IV sacral wound. She had HD 04/20/22. Carlita was admitted in February with severe back pain and pathological fracture of thoracic vertebrae. At that time she was having MRSA bacteremia, MRI of the foot and ankle revealed fluid collection and presence of osteo. As there is no surgeon to perform BKA for osteomyelitis and persistent bacteremia, she was transferred to [facility] ([facility]) where is was then noted she had bilateral leg weakness with no sensation from mid thoracic down, which led to spinal surgery with [facility] for massive anterior thoracotomy and posterior decompression, stabilization which could not be performed d/t extensive c omorbidities, acute infection, and concern that surgical intervention would not alter the patient's clinical course. With regards to her neuroendocrine tumor (dx 2018, likely pancreatic origin, widely met disease to spine causing signif pain); there was no further oncologic treatment: Regarding the neuroendocrine tumor with spinal metastasis, she was evaluated by Radiation Oncology and Oncology, was not deemed a candidate for systemic chemotherapy. Palliative Medicine was consulted to assist with pain mgt, patient declined hospice at that time. Her left diabetic foot ulcer w/MRSA bacteremia was treated with left BKA 03/05/2022. ID saw her and ID was consulted/YUMIKO negative/+source control achieved via Left BKA; she continued vancomycin for MRSA bacteremia until 04/16/2022 due to greater than 1 week for persistent bacteremia. She was also found to have a sacral and left ischial pressure injury that was unstageable and the patient was discharged to [facility] on 03/24/2022. She had a follow up with [facility] Rad Onc 04/07/22: "Recommendation:I have recommended no further radiation therapy at this point. The patient requires further imaging studies including an MRI of the thoracic spine to assess for overall treatment response from her previous course of treatment. I did explain to her that the interval for retreatment is very short and puts her at significant risk for damage to the spinal cord. Additionally, I am doubtful about her overall treatment response from her first course of radiation therapy and the potential benefit for a second course of treatment. If the patient is interested in even potential consideration for further radiation, we would need an MRI of the thoracic spine." Carlita is well known to [facility] Palliative Med service, last seen 02/26/22: "Carlita talked extensively about how she feels that the steroid is helping her and she is hopeful that it will allow her to improve to the point that she is able to be somewhat independent as she had been. We discussed role of steroid to decrease inflammation related to tumor but not for actual treatment of the tumor itself. I also expressed concern that we should be cautious with expectation of full recovery of her previous function or shelter relief. I asked her if she had considered what she would want if she reached a point where her cancer were no longer treatable and she told me that she wanted to do whatever was necessary for her to live as long as possible. She did not see any limitations to treatment that she would be willing to go through. We talked about concern that with bacteremia, her dialysis access may need to be removed. She does have a fi stula but there has been difficulty using it recently. She told me that she would want to continue dialysis under any circumstances. I asked her if she had discussed her goals with Dr. Banuelos and she told me that she had said essentially the same thing to her. Despite her poor prognosis, she feels strongly that she would want whatever care necessary to prolong her life. She did mention that 'if the doctors told me that there was nothing else that they could do, I would have to think about it". She had talked with Dr. Abernathy about hospice and told me that she would be interested in that to help her at home. I explained that hospice care would mean total shift in focus of care to comfort only and she told me that she was not interested in that." 04/19/22, [facility] note reflects discussion with pt and family re: CT abd-pelvis with + concern for an enterocutaneous fistula and osteomyelitis. It is not felt she will survive surgery for the EC fistula. She is currently off pressors. She was advised she will chronically reinfect the sacral wound, this will eventually lead to MSOF/will become unfixable. We have been asked to see this pt to assist with the discussions about her goals of care in context of these new critical issues. Allergies Allergy/AdvReac Type Severity Reaction Status Date / Time gabapentin AdvReac Severe Tremor Verified 04/18/22 22:49 Iodinated Contrast Media AdvReac Severe Patient Verified 04/18/22 20:57 has kidney failure omeprazole AdvReac Severe Increased Verified 04/18/22 20:57 her acid reflux MICHAEL Inhibitors AdvReac Unknown Intolerance Verified 04/18/22 20:57 Home Medications Medication Instructions Recorded Confirmed Type levothyroxine 125 mcg tablet 125 mcg PO DAILYBB 03/15/21 04/18/22 History acetaminophen 325 mg capsule 650 mg PO Q6H PRN Pain 04/07/22 04/18/22 History (Tylenol) collagenase clostridium histo. 250 1 applic topical DAILY 04/07/22 04/18/22 History unit/gram topical ointment (Santyl) famotidine 20 mg tablet (Pepcid) 20 mg PO .Wed-Wed-Wed04/07/22 04/18/22 History gabapentin 100 mg capsule 200 mg PO DAILY 04/07/22 04/18/22 History insulin glargine 100 unit/mL 10 unit subcut QPM 04/07/22 04/18/22 History subcutaneous solution (Lantus U-100 Insulin) insulin regular human 100 unit/mL 1 sliding scale dose subcut 04/07/22 04/18/22 History injection solution (Humulin R USEASDIRECTD Regular U-100 Insulin) lidocaine 5 % topical patch 1 patch topical DAILY 04/07/22 04/18/22 History methadone 10 mg tablet 10 mg PO Q8H 04/07/22 04/18/22 History ondansetron HCl 4 mg tablet 4 mg PO Q6H PRN Nausea 04/07/22 04/18/22 History polyethylene glycol 3350 17 34 g PO DAILY 04/07/22 04/18/22 History gram/dose oral powder vitamin B complex and vitamin C 1 cap PO DAILY 04/07/22 04/18/22 History no.20-folic acid 1 mg capsule Ceftriaxone Ivpb See Rx Instructions .Route .COMPLEX 04/18/22 04/18/22 History hydromorphone 4 mg tablet 8 mg PO .Q3HR PRN Pain 04/18/22 04/18/22 History methadone 5 mg tablet 5 mg PO Q8 04/18/22 04/18/22 History midodrine 5 mg tablet 10 mg PO DAILY PRN .. 04/18/22 04/18/22 History sennosides 8.6 mg-docusate sodium 2 tab-cap PO BID 04/18/22 04/18/22 History 50 mg tablet (Senna Plus) vitamin B complex-vitamin C-folic 1 tab PO DAILY 04/18/22 04/18/22 History acid 0.8 mg tablet (Ira-Umer) Patient History Medical History (Updated 04/21/22 @ 13:06 by Kate Shrestha DNP) Acid reflux Anemia Chronic narcotic dependence Diabetes Diabetic retinopathy ESRD (end stage renal disease) On dialysis esdras @ [facility] in [place] H/O vocal cord paralysis Right side Hypertension MRSA bacteremia 2017; unclear if vertebral or R diabetic foot wound source 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---only had radiation treatments Osteomyelitis of left foot chronic 2020 and 2021 Palliative care encounter Radicular pain of thoracic region Retinal hemorrhage, right eye Sepsis Thyroid cancer had sx Thyroid nodule Wound abscess left foot diabetic ulcer Surgical History Amputation of right great toe AVF (arteriovenous fistula) endovascular L; created 09/2020 H/O thyroidectomy Partial thyroidectomy History of cholecystectomy History of esophagogastroduodenoscopy (EGD) History of surgery Surgery to removed benign tumor from right vocal cord; History of surgery (~01/26/22) permcath placed--pt states her AV fistula was not working properly so permcath placed at that time by Dr. Strong @ [facility]--per pt on 02/19/22 she states her AV fistula is now working properly History of surgical procedure on eye proper using laser History of tooth extraction partial upper denture Hx of cataract surgery Bilateral Hx of tonsillectomy Previous section x2 Family History Mother , 70yo Diabetes Valvular heart disease Father , 74yo Diabetes Pneumonia Brother No problems noted. Brother No problems noted. Sister Kidney disease Dialysis patient Daughter No problems noted. Daughter Diabetes Other No family history of adverse response to anesthesia Social History Smoking Status: Never smoker Second Hand Exposure: No; Do You Dip or Chew Tobacco: No; Hx Alcohol Use: No Hx Substance Use: No Preferred Language: Mongolian Communication Ability: Effective Visual Impairment: No Limitations Hearing Ability: Normal Toaster Operator Required: No Beliefs That Will Affect Care: None marital status: Current Living Situation: Rehab Current Living Situation Comment: Pt currently residing at [facility] current occupational status: disabled How many Children do You have: 2 Other Information That Helps Us Care for You: No Feels Safe at Home: Yes Safety Concerns: Feels Safe At This Time caffeine: No during the past year weight has: remained stable Assistive Devices: Wheelchair Review of Systems Review of Systems: All systems reviewed & are unremarkable except as noted in Subjective Physical Exam Constitutional: Frail, chronically ill patient. Appears older than stated age. + Bitemporal wasting. Eyes: Pupils are equal and reactive to light. Extraocular movements are intact bilaterally. Neck: Neck is supple, there is no stridor. Respiratory: Slightly increased respiratory effort that this may be attributed to anxiety and the stress of an end-of-life conversation. Lungs are diminished overall though there is no overt wheeze noted. Cardiovascular: Tachycardic, + S1, + S2 Gastrointestinal (Abdomen): Scaphoid abdomen, nontender Musculoskeletal: Left BKA with eschar Neurologic: AAOx3 Psychiatric: Tearful and subdued Results & Data ([facility]) Vital Signs (Past 12 Hours) Vital Signs Temp Pulse Resp BP Pulse Ox Pulse Ox O2 Del Method 04/21/22 11:11 37.2 C 04/21/22 11:00 84 22 100 04/21/22 11:00 108/51 L 04/21/22 10:30 82 17 98 04/21/22 10:00 80 16 90 04/21/22 10:00 87/40 L 04/21/22 09:30 81 16 92 04/21/22 09:00 89 16 95 04/21/22 09:00 80/42 L 04/21/22 08:30 95 H 16 95 04/21/22 08:00 95 H 20 04/21/22 08:00 94/53 L 04/21/22 07:49 90/49 L 04/21/22 07:49 94 H 23 04/21/22 07:32 105/52 L 04/21/22 07:32 88 21 100 04/21/22 07:30 88 15 100 04/21/22 07:00 78 18 99 04/21/22 07:00 97/52 L 04/21/22 06:30 77 14 99 04/21/22 08:00 86 04/21/22 08:00 Nasal Cannula 04/21/22 08:00 95 04/21/22 06:00 86 14 101/56 L 99 04/21/22 05:00 82 13 99 04/21/22 05:00 98/50 L 04/21/22 04:05 72 17 99 04/21/22 04:05 96/47 L 04/21/22 04:20 37.0 C 04/21/22 03:00 75 15 99 04/21/22 03:00 112/54 L 04/21/22 02:00 70 14 100 04/21/22 02:00 91/42 L 04/21/22 01:14 94/47 L 04/21/22 01:14 79 14 99 04/21/22 01:00 74 13 92/48 L O2 Del Method O2 Flow Rate O2 Flow Rate 04/21/22 11:11 04/21/22 11:00 04/21/22 11:00 04/21/22 10:30 04/21/22 10:00 04/21/22 10:00 04/21/22 09:30 04/21/22 09:00 04/21/22 09:00 04/21/22 08:30 04/21/22 08:00 04/21/22 08:00 04/21/22 07:49 04/21/22 07:49 04/21/22 07:32 04/21/22 07:32 04/21/22 07:30 04/21/22 07:00 04/21/22 07:00 04/21/22 06:30 04/21/22 08:00 04/21/22 08:00 2 04/21/22 08:00 Nasal Cannula 3 04/21/22 06:00 04/21/22 05:00 04/21/22 05:00 04/21/22 04:05 04/21/22 04:05 04/21/22 04:20 04/21/22 03:00 04/21/22 03:00 04/21/22 02:00 04/21/22 02:00 04/21/22 01:14 04/21/22 01:14 04/21/22 01:00 Laboratory Results Labs and imaging reviewed OSH data reviewed Diagnostic Findings Labs and imaging reviewed OSH data reviewed PG Care Time/CCT Total # of Minutes Spent Total Time Spent: 100 Total Time Spent with Patient: Total time spent is greater than 50% in coordination of care (as documented) at patient's floor/unit and/or counseling patient: 15 minutes was spent in chart review of this complex patient's case. 45 minutes was spent in direct [id number] discussion with patient and her with regards to an overview of her advancing medical issues, the terminal nature of her illness, and recommendations and options for moving forward at this junction. 20 minutes was spent discussing advanced illness planning and preferences for her care at this junction. She is clear that she wishes to transition her focus to be that of comfort. 10 minutes was spent in complex care coordination reviewing the logistics for discharging this patient home following her last dialysis session which is scheduled for tomorrow. 10 minutes spent updating primary team, nursing, case management. [place] [address] Inpt Consult Level 5 Patient Type New History Comprehensive Exam Comprehensive Medical Decision Making High Complexity Diagnoses Palliative care encounter Z51.5 Advanced care planning/counseling discussion Z71.89 Cancer related pain G89.3 Severe sepsis with septic shock A41.9; R65.21 ESRD (end stage renal disease) on dialysis N18.6; Z99.2 Sacral decubitus ulcer, stage IV L89.154 Neuroendocrine tumor D3A.8 Burst fracture of thoracic vertebra S22.001A
--- NOTE | 2022-04-21 13:52 | Hospitalist Progress Note ---
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 and finish the course of vancomycin on 1111 1022 and was in [facility] from [facility] at the end Complaint to have sweating and weakness Received intravenous fluid and also blood transfusion and has been on intr avenous pressor resents to maintain blood pressure Appreciate accounts supervisor input and recommendation We will continue current antibiotic Blood and urine cultures have been negative in the hospital Palliative care will be consulted-appreciate palliative care input and recommendation She remains stable Blood pressure is maintaining the lower side without any more intravenous pressors and should be transferred to telemetry unit for continuation of care (2) Gram-negative bacteremia: Plan: Gram-negative bacteremia was diagnosed in [facility] (3) Sacral decubitus ulcer, stage IV: Plan: Has a stage IV sacral decubiti ulcers which seems to be infected Likely the source of bacteremia IV antibiotic as planned Surgery evaluation is done. Appreciate input and recommendation for debridement tomorrow Surgery will not be done as it could be too risky to do surgery at this time Recommendation was to continue with conservative management and the patient get's better and plan for surgery later She cannot lie on her sides (4) ESRD (end stage renal disease) on dialysis: Plan: Appreciate nephrology input and evaluation Will have dialysis today 04/20/2022 Dialysis as per supervisor/port director Anemia Likely secondary to end-stage renal disease and may be complicated by ongoing infection Globin is low on admission Received 2 units of blood transfusion and hemoglobin seems to be stable Not a candidate for nipple and/or iron Hemoglobin remains at more than 8 today Hemoglobin minimally dropped today at 7.5 and repeat came back at 8.3 Stool is sent for occult blood Drop in hemoglobin due to chronic disease and CKD (5) CKD (chronic kidney disease): Plan: As above (6) Neuroendocrine tumor: Plan: Has metastatic neuroendocrine tumor Status post evaluation by oncology palliative care Not for any further chemotherapy and she is not yet ready for hospice care Palliative care has been consulted await recommendation (7) DMII (diabetes mellitus, type 2): Plan: Has been on SSI (8) Pathologic fracture of thoracic vertebrae: Plan: She was transferred to [facility] at [place] recently for evaluation She is not a candidate for extensive surgery which will not change the course Has paraplegia DVT prophylaxis Pharmacologic prophylaxis on hold due to concern of bleeding Occult blood is negative We will start subcu heparin twice daily CODE STATUS DNR/DNI Admission and Anticipated Discharge Date Admission Date: April 18, 2022 Subjective 04/19/2022 The patient was seen and examined in ICU She was transferred from [facility] with bacteremia and low blood pressure Complaint to have sweating and generalized weakness Denies any significant symptoms during examination 04/20/2022 The patient was seen and examined in ICU She has been feeling a little better but he still remains hypotensive and requiring pressor resents Denies any fever and chills Has been getting dialysis 04/21/2022 The patient was seen and examined in ICU She has been stable and denies any significant symptoms except weakness Has been feeling a little better since admission No fever and or chills Review of Systems Review of Systems: All systems reviewed and are unremarkable except as noted Neurologic: Generally very weak and lethargic Physical Exam Physical Exam: Lying in bed comfortably Constitutional: well developed, well nourished, + ill appearing and average body habitus Eyes: PERRL, conjunctivae normal, anicteric sclerae ENMT: external ear and nose normal, oropharynx normal Neck: trachea midline, no thyromegaly Respiratory: no respiratory distress Auscultation: lungs clear to auscultation bilaterally Cardiovascular: Rate/Rhythm: regular rate and regular rhythm; not tachycardic Heart Sounds: normal S1 and normal S2; no murmur Extremities: + edema (Trace edema right side and AKA on the left) Gastrointestinal (Abdomen): Inspection/Auscultation: normal bowel sounds; abdomen not distended Percussion/Palpation: abdomen soft; abdomen nontender Musculoskeletal: No acute arthritis involving any joint Neurologic: Alert, awake and oriented x3. Remains very weak Lymphatic: no cervical or axillary lymphadenopathy Results & Data Results & Data ([facility]) Vital Signs (Past 12 Hours) Vital Signs Temp Pulse Resp BP Pulse Ox Pulse Ox O2 Del Method 04/21/22 11:11 37.2 C 04/21/22 11:00 84 22 100 04/21/22 11:00 108/51 L 04/21/22 10:30 82 17 98 04/21/22 10:00 80 16 90 04/21/22 10:00 87/40 L 11/15/22 09:30 81 16 92 04/21/22 09:00 89 16 95 04/21/22 09:00 80/42 L 04/21/22 08:30 95 H 16 95 04/21/22 08:00 95 H 20 04/21/22 08:00 94/53 L 04/21/22 07:49 90/49 L 04/21/22 07:49 94 H 23 04/21/22 07:32 105/52 L 04/21/22 07:32 88 21 100 04/21/22 07:30 88 15 100 04/21/22 07:00 78 18 99 04/21/22 07:00 97/52 L 04/21/22 06:30 77 14 99 04/21/22 08:00 86 04/21/22 08:00 Nasal Cannula 04/21/22 08:00 95 04/21/22 06:00 86 14 101/56 L 99 04/21/22 05:00 82 13 99 04/21/22 05:00 98/50 L 04/21/22 04:05 72 17 99 04/21/22 04:05 96/47 L 04/21/22 04:20 37.0 C 04/21/22 03:00 75 15 99 04/21/22 03:00 112/54 L 04/21/22 02:00 70 14 100 04/21/22 02:00 91/42 L O2 Del Method O2 Flow Rate O2 Flow Rate 04/21/22 11:11 04/21/22 11:00 04/21/22 11:00 04/21/22 10:30 04/21/22 10:00 04/21/22 10:00 04/21/22 09:30 04/21/22 09:00 04/21/22 09:00 04/21/22 08:30 04/21/22 08:00 04/21/22 08:00 04/21/22 07:49 04/21/22 07:49 04/21/22 07:32 04/21/22 07:32 04/21/22 07:30 04/21/22 07:00 04/21/22 07:00 04/21/22 06:30 04/21/22 08:00 04/21/22 08:00 2 04/21/22 08:00 Nasal Cannula 3 04/21/22 06:00 04/21/22 05:00 04/21/22 05:00 04/21/22 04:05 04/21/22 04:05 04/21/22 04:20 04/21/22 03:00 04/21/22 03:00 04/21/22 02:00 04/21/22 02:00 Laboratory Results Short CBC 04/20/22 04/21/22 04/21/22 Range/Units 16:42 04:10 12:02 WBC 13.09 H (4.8-10.8) K/ul Hgb 8.1 L 7.5 L 8.3 L (12.0-16.0) g/dl Hct 25.4 L 23.8 L 26.5 L (34.1-44.9) % Plt Count 168 (130-400) K/uL BMP 04/21/22 04:10 Sodium 135 L Potassium 3.7 Chloride 101 Carbon Dioxide 27 BUN 43 H Creatinine 2.98 H D Glucose 104 H Calcium 8.7 Liver Function 04/21/22 Range/Units 04:10 Total Bilirubin 0.6 (0.2-1.0) mg/dl AST 64 H (13-39) U/L ALT 134 H (7-52) U/L Alkaline Phosphatase 148 H (34-104) U/L Albumin 2.0 L (3.4-5.0) gm/dl Medications Administered Current Inpatient Medications Acetaminophen (Acetaminophen 325 Mg Tab) 650 mg PO Q4H PRN PRN Reason: Pain or Fever Stop: 05/18/22 23:52 Collagenase (Collagenase Oint 30 Gm Tube) 1 appln TOP DAILY KIRT Stop: 05/19/22 08:59 Last Admin: 04/21/22 08:20 Dose: 1 appln Dextrose (Dextrose 50% 50 Ml Syringe) 25 - 50 ml IV UD PRN; Protocol PRN Reason: Hypoglycemia Protocol Stop: 05/19/22 00:59 Famotidine (Famotidine 20 Mg Tab) 20 mg PO MoWeFr@0900 KIRT Stop: 05/20/22 08:59 Last Admin: 04/20/22 08:30 Dose: 20 mg Gabapentin (Gabapentin 100 Mg Cap) 200 mg PO DAILY KIRT Stop: 05/19/22 08:59 Last Admin: 04/21/22 08:18 Dose: 200 mg Glucagon (Glucagon For Inj 1 Mg Vial) 1 mg IM UD PRN; Protocol PRN Reason: Hypoglycemia Protocol Stop: 05/19/22 00:59 Glucose (Glucose 40% Gel 15 Gm Tube) 15 - 30 gm PO UD PRN; Protocol PRN Reason: Hypoglycemia Protocol Stop: 05/19/22 00:59 Glucose (Glucose 10 Tab/Tube) 4 - 8 tab PO UD PRN; Protocol PRN Reason: Hypoglycemia Protocol Stop: 05/19/22 00:59 Hydromorphone HCl (Hydromorphone Hcl 2 Mg Tab) 8 mg PO Q3H PRN PRN Reason: Pain Stop: 05/03/22 00:52 Last Admin: 04/21/22 08:15 Dose: 8 mg Norepinephrine Bitartrate (Levophed/D5w) 4 mg in 250 mls @ 13.294 mls/hr IV .[id number] [facility]; Protocol Stop: 05/18/22 23:14 Last Admin: 04/21/22 08:53 Dose: Not Given Piperacillin Sod/Tazobactam (Sod 4.5 gm/ Dextrose) 120 mls @ 30 mls/hr IV Q12H [facility]; Protocol Stop: 05/03/22 08:59 Last Infusion: 04/21/22 12:22 Dose: Infused Promethazine HCl 12.5 mg/ (Sodium Chloride) 50.5 mls @ 202 mls/hr IV Q6H PRN PRN Reason: Nausea And Vomiting Stop: 05/18/22 23:52 Insulin Aspart (Insulin Aspart Per Unit) 0 units SC ACHS [facility] Stop: 05/19/22 07:29 Last Admin: 04/21/22 11:52 Dose: Not Given Insulin Glargine (Lantus Per Unit Charge) 10 units SQ QPM [facility] Stop: 05/19/22 20:59 Last Admin: 04/20/22 21:40 Dose: 10 units Levothyroxine Sodium (Levothyroxine Sodium 125 Mcg Tablet) 125 mcg PO DAILYBB [facility] Stop: 05/19/22 06:29 Last Admin: 04/21/22 05:56 Dose: 125 mcg Lidocaine (Lidocaine 5% 1 Patch) 1 patch TD DAILY KIRT Stop: 05/19/22 08:59 Last Admin: 04/21/22 08:19 Dose: 1 patch Methadone HCl (Methadone Hcl 10 Mg Tab) 10 mg PO Q8 [facility] Stop: 05/03/22 05:59 Last Admin: 04/21/22 05:56 Dose: Not Given Methadone HCl (Methadone Hcl 5 Mg Tab) 5 mg PO Q8 [facility] Stop: 05/03/22 05:59 Last Admin: 04/21/22 05:31 Dose: 5 mg Midodrine (Midodrine Hcl 10 Mg Tab) 10 mg PO TID@0800,1200,1700 [facility] Stop: 05/21/22 07:59 Last Admin: 04/21/22 11:52 Dose: 10 mg Miscellaneous (Remove Lidoderm Patch) 1 each N/A DAILY@2100 [facility] Stop: 05/19/22 20:59 Last Admin: 04/20/22 21:41 Dose: 1 each Miscellaneous (Carbohydrates For Hypoglycemia ) 15 - 30 gm PO UD PRN PRN Reason: Hypoglycemia Treatment Stop: 05/19/22 00:59 Miscellaneous Information (Vancomycin Consult Active) 1 each N/A UD PRN PRN Reason: Consult Stop: 05/18/22 18:54 Nitroglycerin (Nitroglycerin Sl 0.4 Mg/Tab Tab) 0.4 mg SL UD PRN PRN Reason: Chest Pain Stop: 05/18/22 23:52 Ondansetron HCl (Ondansetron 4 Mg Od Tab) 4 mg PO Q6H PRN PRN Reason: Nausea And Vomiting Stop: 05/19/22 00:47 Polyethylene Glycol (Polyethylene (Miralax) 17 Gm Pack) 34 gm PO DAILY [facility] Stop: 05/19/22 08:59 Last Admin: 04/21/22 08:21 Dose: Not Given Senna/Docusate Sodium (Docusate Sodium/Senna 50/8.6mg Tab) 2 tab PO BID [facility] Stop: 05/19/22 08:59 Last Admin: 04/21/22 08:20 Dose: Not Given Vitamin B Complex/Folic Acid (Nephrocaps) 1 cap PO DAILY [facility] Stop: 05/19/22 08:59 Last Admin: 04/21/22 08:17 Dose: 1 cap
[2022-04-21] MEDS: LANTUS PER UNIT CHARGE SQ SCH (21:14)
[2022-04-21] MEDS: HEPARIN SOD 5,000 UNIT/0.5 ML VIAL SQ SCH (21:43)
[2022-04-22] MEDS: METHADONE HCL 5 MG TAB PO SCH ×3 (06:08→22:24)
[2022-04-22] MEDS: LEVOTHYROXINE SODIUM 125 MCG TABLET PO SCH (06:08)
[2022-04-22] MEDS: COLLAGENASE OINT 30 GM TUBE TOP SCH (06:08)
[2022-04-22] MEDS: METHADONE HCL 10 MG TAB PO SCH ×3 (06:08→22:24)
[2022-04-22] MEDS: LIDOCAINE 5% 1 PATCH TD SCH (08:15)
[2022-04-22] MEDS: DOCUSATE SODIUM/SENNA 50/8.6MG TAB PO SCH ×2 (08:15→20:12)
[2022-04-22 08:16] LABS: Basophils # (auto) 0.04 K/uL (0-0.2); Basophils % (auto) 0.3 %; Eosinophils # (auto) 0.13 K/uL (0-0.50); Eosinophils % (auto) 0.9 %; Hemoglobin 7.5 g/dl (12.0-16.0); Immature Granulocytes # (auto) 0.24 K/uL (0.00-0.02); Immature Granulocytes % (auto) 1.6 %; Lymphocytes % (auto) 11.3 %; Mean Corpuscular Hemoglobin 30.6 pg (25.0-34.0); Mean Corpuscular Hgb Conc 31.3 g/dL (32.0-36.0); Mean Platelet Volume 9.7 fL (9.4-12.3); Monocytes # (auto) 0.78 K/uL (0.24-0.82); Monocytes % (auto) 5.2 %; Neutrophils # (auto) 12.19 K/uL (1.4-6.5); Neutrophils % (auto) 80.7 %; Platelet Count 201 K/uL (130-400); RDW Coefficient of Variation 17.1 % (11.5-14.5); RDW Standard Deviation 61.6 fL (36.4-46.3); Red Blood Count 2.45 M/uL (3.93-5.22); White Blood Count 15.08 K/ul (4.8-10.8)
[2022-04-22] MEDS: FAMOTIDINE 20 MG TAB PO SCH (08:16)
[2022-04-22] MEDS: GABAPENTIN 100 MG CAP PO SCH (08:16)
[2022-04-22] MEDS: HEPARIN SOD 5,000 UNIT/0.5 ML VIAL SQ SCH ×2 (08:16→20:12)
[2022-04-22] MEDS: POLYETHYLENE (MIRALAX) 17 GM PACK PO SCH (08:16)
[2022-04-22] MEDS: MIDODRINE HCL 10 MG TAB PO SCH ×3 (08:16→18:23)
[2022-04-22] MEDS: NEPHROCAPS PO SCH (08:17)
[2022-04-22 08:42] LABS: Poikilocytosis Present
[2022-04-22 08:46] LABS: Albumin Globulin Ratio 0.4 (0.9-2); Bilirubin,Total 0.6 mg/dl (0.2-1.0); Calcium 8.9 mg/dl (8.5-10.1); Creatinine Clr Calc Pharmacy 15.7 ml/min; Est GFR (Non-African American) 12.1 ml/min; Globulin 4.9 gm/dl (2.5-4.0); Magnesium 1.9 mg/dl (1.7-2.4); Phosphorus 4.4 mg/dl (2.5-4.9); Potassium 3.8 mmol/L (3.5-5.1); Total Protein 6.9 gm/dl (6.0-8.3)
[2022-04-22] MEDS: INSULIN ASPART PER UNIT SC SCH ×4 (08:56→21:30)
[2022-04-22] MEDS: PIPERACILLIN/TAZOBACTAM 4.5 GM in DEXTROSE 5% 100 ML IV SCH ×2 (10:38→20:16)
--- NOTE | 2022-04-22 10:41 | Dialysis Progress Note ---
Date of Service April 22, 2022 Assessment & Plan Admission and Anticipated Discharge Date Admission Date: April 18, 2022 Subjective Subjective 1-- ESRD (end stage renal disease) on dialysis: Dialysis today as ordered. But then cancelled because of low BP/ patient desire. S--seen for dialysis. She first wanted dialysis but then Did not because her BP was too low. Access is fine. Now on hospice and gong home today Physical Exam Constitutional: well developed, + cachectic, + physical limitations, + frail appearing and cooperative; no acute distress and no altered mental status Eyes: EOM intact bilaterally ENMT: Ears: no external ear abnormality Nose: no external nose abnormality Mouth: + dry oral mucous membranes Neck: no nuchal rigidity Respiratory: normal respiratory effort Auscultation: + diminished lung sounds Cardiovascular: Rate/Rhythm: regular rate and regular rhythm Heart Sounds: normal S1 and normal S2 Extremities: + AV fistula (LUE) Gastrointestinal (Abdomen): Inspection/Auscultation: normal bowel sounds Percussion/Palpation: abdomen soft; abdomen nontender Musculoskeletal: Extremities: strength 5/5 throughout Skin: no rashes, warm and dry backside not examined; large L patellar abrasion Neurologic: rodriguez, fluent speech, no tremor Psychiatric: Orientation: oriented x 3 Speech: normal rate/rhythm/volume of speech (hoarse, soft as it has been most recently) Results & Data ([facility]) Vital Signs (Past 12 Hours) Vital Signs Temp Pulse Resp BP Pulse Ox O2 Del Method 04/22/22 07:49 37.4 C 72 16 105/57 L 94 Room Air 04/21/22 22:53 37.3 C 79 16 109/68 94 Room Air
--- NOTE | 2022-04-22 12:21 | Pharmacy Report ---
Pharmacy PK ABX Note - Date of Service April 22, 2022 - Assessment and Plan Assessment 56 year old F receiving vancomycin/zosyn for treatment of GNB bacteremia/sacral ulcer. Patient with recent MRSA bacteremia, underwent BKA for osteo- plan for completed vanco therapy 04/17/22 (per hospitalist notes). Patient found to have GNB bacteremia at [facility]. Continuing vancomycin/zosyn- suspect sacral ulcer is polymicrobial. UC is no growth, BC here are pending. Patient has ESRD with dialysis (schedule TUTHSA) but does make some urine, also immunocompromised neuroendocrine tumor w/mets. Will dose vancomycin by levels. Level this AM (04/22) 19.2 Plan Vancomycin * Received 500 mg ON 04/20/22 * No dialysis today so no dose today. Next HD session tomorrow. * Next level due on the morning of next HD session Pharmacy will continue to follow and will adjust dose/frequency as necessary. Thank you. Pharmacy has transitioned to AUC monitoring for vancomycin. AUC/RUTHY is the preferred PK/PD target and is associated with decreased risk of nephrotoxicity compared to traditional trough targets.
--- NOTE | 2022-04-22 14:11 | Hospitalist Progress Note ---
Date of Service April 22, 2022 Assessment & Plan (1) Severe sepsis with septic shock: Plan: per Dr. Parmar's notes with addendum: (1) Severe sepsis with septic shock: Plan: Transfer from [facility] with gram-negative bacteremia and hypotension She is a status post left AKA secondary to history of myelitis and finish the course of vancomycin on 1111 1022 and was in [facility] from [facility] at the end Complaint to have sweating and weakness Received intravenous fluid and also blood transfusion and has been on intravenous pressor resents to maintain blood pressure Appreciate metal mockup maker input and recommendation We will continue current antibiotic Blood and urine cultures have been negative in the hospital Palliative care will be consulted-appreciate palliative care input and recommendation She remains stable Blood pressure is maintaining the lower side without any more intravenous pressors and should be transferred to telemetry unit for continuation of care 04/22 Dialysis canceled due to low blood pressure Improved this morning Continue midodrine Continue IV Zosyn and vancomycin Anticipate discharge to home tomorrow with hospice services after inpatient hemodialysis (2) Gram-negative bacteremia: Plan: Gram-negative bacteremia was diagnosed in [facility] (3) Sacral decubitus ulcer, stage IV: Plan: Has a stage IV sacral decubiti ulcers which seems to be infected Likely the source of bacteremia IV antibiotic as planned Surgery evaluation is done. Appreciate input and recommendation for debridement tomorrow Surgery will not be done as it could be too risky to do surgery at this time Recommendation was to continue with conservative management and the patient get's better and plan for surgery later She cannot lie on her sides 04/22 Continue methadone as needed for pain (4) ESRD (end stage renal disease) on dialysis: Plan: Management per #1 Anemia Likely secondary to end-stage renal disease and may be complicated by ongoing infection Globin is low on admission Received 2 units of blood transfusion and hemoglobin seems to be stable Not a candidate for nipple and/or iron Hemoglobin remains at more than 8 today Hemoglobin minimally dropped today at 7.5 and repeat came back at 8.3 Stool is sent for occult blood Drop in hemoglobin due to chronic disease and CKD 04/22 Hemoglobin seven-point (5) CKD (chronic kidney disease): Plan: As above (6) Neuroendocrine tumor: Plan: Has metastatic neuroendocrine tumor Palliative care has been consulted: Patient to transition to hospice services at home tomorrow (7) DMII (diabetes mellitus, type 2): Plan: Has been on SSI (8) Pathologic fracture of thoracic vertebrae: Plan: She was transferred to [facility] at [place] recently for evaluation She is not a candidate for extensive surgery which will not change the course Has paraplegia DVT prophylaxis Pharmacologic prophylaxis on hold due to concern of bleeding Occult blood is negative heparin twice daily CODE STATUS DNR/DNI Disposition Home with hospice tomorrow after hemodialysis Admission and Anticipated Discharge Date Admission Date: April 18, 2022 Subjective Follow-up for septic shock, E. coli bacteremia, surgical diabetes ulcer, etc. Seen resting in bed, sitting up, awake and alert, oriented x3 States she feels fine overall Hemodialysis canceled this morning due to hypotension Patient denies chest pain, shortness of breath, dizziness Denies any other pain Would like to try having dialysis session tomorrow Before returning to home No other symptoms Review of Systems Review of Systems: all noted and negative except for above Physical Exam Physical Exam: General- oriented x 3, not in distress, speaks in sentences with no effort or accessory muscle use Eyes- anicteric Neck- no JVD Lungs- clear breath sounds bilaterally, no crackles, no wheezing Heart- normal rate, regular rhythm; no murmurs Abdomen- normal bowel sounds, nondistended, soft, nontender Extremities- no pretibial edema, no calf tenderness Neuro- alert, oriented x 3; no gross focal neurologic deficits Skin- warm & dry Results & Data Results & Data ([facility]) Vital Signs (Past 12 Hours) Vital Signs Temp Pulse Resp BP Pulse Ox O2 Del Method 04/22/22 07:49 37.4 C 72 16 105/57 L 94 Room Air
[2022-04-22] MEDS: LANTUS PER UNIT CHARGE SQ SCH (20:12)
[2022-04-23] MEDS: METHADONE HCL 10 MG TAB PO SCH ×2 (05:29→13:21)
[2022-04-23] MEDS: METHADONE HCL 5 MG TAB PO SCH ×2 (05:29→13:21)
[2022-04-23] MEDS: LEVOTHYROXINE SODIUM 125 MCG TABLET PO SCH (05:29)
[2022-04-23] MEDS ORDERED: SODIUM CHLORIDE 0.9% 1000ML 1,000 ML IV PRN (07:00)
[2022-04-23 07:41] VITALS: O2SAT 95
[2022-04-23] MEDS: GABAPENTIN 100 MG CAP PO SCH (07:55)
[2022-04-23] MEDS: HEPARIN SOD 5,000 UNIT/0.5 ML VIAL SQ SCH (07:55)
[2022-04-23] MEDS: NEPHROCAPS PO SCH (07:56)
[2022-04-23] MEDS: MIDODRINE HCL 10 MG TAB PO SCH ×2 (07:56→13:12)
[2022-04-23] MEDS: LIDOCAINE 5% 1 PATCH TD SCH (07:56)
[2022-04-23] MEDS: COLLAGENASE OINT 30 GM TUBE TOP SCH (07:57)
[2022-04-23] MEDS: POLYETHYLENE (MIRALAX) 17 GM PACK PO SCH (07:57)
[2022-04-23] MEDS: DOCUSATE SODIUM/SENNA 50/8.6MG TAB PO SCH (07:58)
[2022-04-23] MEDS: PIPERACILLIN/TAZOBACTAM 4.5 GM in DEXTROSE 5% 100 ML IV SCH (08:03)
[2022-04-23] MEDS: INSULIN ASPART PER UNIT SC SCH ×2 (08:44→13:14)
--- NOTE | 2022-04-23 11:36 | Dialysis Progress Note ---
Date of Service April 23, 2022 Assessment & Plan Admission and Anticipated Discharge Date Admission Date: April 18, 2022 Subjective Subjective 1-- ESRD (end stage renal disease) on dialysis: Dialysis today as ordered. 2.5 hrs 3k and no fluid off. S--seen During dialysis. had low BP and we gave her fluid to get BP up. Access is fine. Now on hospice and going home today. very weak and barely talking. No SOB Physical Exam Constitutional: well developed, + cachectic, + physical limitations, + frail appearing and cooperative; no acute distress and no altered mental status Eyes: EOM intact bilaterally ENMT: Ears: no external ear abnormality Nose: no external nose abnormality Mouth: + dry oral mucous membranes Neck: no nuchal rigidity Respiratory: normal respiratory effort Auscultation: + diminished lung sounds Cardiovascular: Rate/Rhythm: regular rate and regular rhythm Heart Sounds: normal S1 and normal S2 Extremities: + AV fistula (LUE) Gastrointestinal (Abdomen): Inspection/Auscultation: normal bowel sounds Percussion/Palpation: abdomen soft; abdomen nontender Musculoskeletal: Extremities: strength 5/5 throughout Skin: no rashes, warm and dry backside not examined; large L patellar abrasion Neurologic: rodriguez, fluent speech, no tremor Psychiatric: Orientation: oriented x 3 Speech: normal rate/rhythm/volume of speech (hoarse, soft as it has been most recently) Results & Data ([facility]) Vital Signs (Past 12 Hours) Vital Signs Temp Pulse Pulse Resp BP BP Pulse Ox 04/23/22 11:17 75 101/62 04/23/22 11:15 85 79/44 L 04/23/22 11:00 87 94/49 L 04/23/22 10:18 73 104/70 04/23/22 10:45 87 90/50 L 04/23/22 10:30 87 97/47 L 04/23/22 10:15 90 75/50 L 04/23/22 10:03 87 111/54 L 04/23/22 09:50 89 92/47 L 04/23/22 10:00 88 78/45 L 04/23/22 09:45 89 76/41 L 04/23/22 09:30 86 107/58 L 04/23/22 09:25 86 99/50 L 04/23/22 09:08 37.1 C 93 H 04/23/22 07:40 36.8 C 77 16 99/61 L 95 O2 Del Method 04/23/22 11:17 04/23/22 11:15 04/23/22 11:00 04/23/22 10:18 04/23/22 10:45 04/23/22 10:30 04/23/22 10:15 04/23/22 10:03 04/23/22 09:50 04/23/22 10:00 04/23/22 09:45 04/23/22 09:30 04/23/22 09:25 04/23/22 09:08 04/23/22 07:40 Room Air
[2022-04-23 12:42] VITALS: BP 127/64; PULSE 89; TEMP 98.6
--- NOTE | 2022-04-23 16:57 | Discharge Summary ---
Discharge Summary Date of Service April 23, 2022 Notes For Next Care Provider Medication Changes From Visit transitioned to home with hospice Admission HPI Per Admitting Provider [facility], [place] History and Physical Report Signed Patient:TANIA YOUSIF Admit Date:04/18/22 MR#:[id number] Att Phy:Hugo Parmar MD Acct ID:[id number] Ana Laura Phy:[facility] Date:1965 Fam Phy: Age:56 Location:1E Sex:F Room/Bed:[facility]6 cc: ~ DICTATED BY:Lucio Orourke MD DATE OF ADMISSION: 04/18/2022. CHIEF COMPLAINT: Bacteremia, hypotension, anemia. HISTORY OF PRESENT ILLNESS: This is a 56-year-old female with past medical history significant for type 2 diabetes, end-stage renal disease on hemodialysis, diabetic polyneuropathy, hyperlipidemia, history of hypothyroidism, hypertension, history of osteomyelitis of the left foot, status post treatment, history of anemia of chronic kidney disease, history of metastatic neuroendocrine cancer deemed not a candidate for chemotherapy, status post radiation treatment. She was in the hospital in February with severe back pain and pathological fracture of thoracic vertebrae. At that time she was having MRSA bacteremia, MRI of the foot and ankle revealed fluid collection and presence of osteo. As there is no surgeon to perform BKA for osteomyelitis and persistent bacteremia, she was transferred to [facility]. Hospital course as per [facility] is that she has bilateral leg weakness and she could not feel from mid thoracic down. Hence, spinal surgery evaluation was done. The patient would require a massive anterior thoracotomy and posterior decompression, stabilization and this was not performed given the extensive comorbidities, acute infection, and concerned surgical intervention would not alter the patient's clinical course. Regarding neuroendocrine tumor, there was no further oncologic treatment and the patient also had left diabetic foot ulcer, MRSA bacteremia. The patient after medical optimization, on 03/05/2022, underwent successful left BKA. Infectious Disease was consulted and although YUMIKO was negative, and source controlled with BKA, patient was recommended to continue vancomycin for MRSA bacteremia until 04/16/2022 due to greater than 1 week for persistent bacteremia .Regarding the neuroendocrine tumor with spinal metastasis, she was evaluated by Radiation Oncology and Oncology. It was determined safe effective radiation to the areas of interest was not feasible and Oncology was also consulted and recommended the patient follow with outpatient oncology.The patient was previously not deemed a candidate for systemic chemotherapy by outpatient oncologist and also Palliative Medicine was consulted and assisted with pain management and the patient was not interested in talking about hospice and transition to supportive care at that time. The patient was also found to have sacral and left ischial pressure injury that was unstageable and the patient was discharged to [facility], seems to be on 03/24/2022 and today she was transferred here because her blood cultures came back positive with gram-negative bacilli . Per the EMS, the patient's blood pressure was lower on the 88/40 and she had dialysis yesterday. She received 2 g of Rocephin prior to ER transport. Her labs in the ER showing hemoglobin of 5.9. No black stools or bloody stools. She is getting 2 units of PRBC in the ER, 1st unit just started. Urinalysis was positive for infection. The patient is speaking in low voice, daughter in the room. The patient has some neck pain. Denies any headache, has back pain. Denies any chest pain. Denies any shortness of breath. No cough. Denies any fevers. Appetite is somewhat low. No runny nose, no sore throat. No belly pain. Denies any diarrhea. Blood pressure was soft, but improved with the fluids 2 liters. She is getting PRBC transfusion now. ALLERGIES: TO IODINATED CONTRAST MEDIA, OMEPRAZOLE, MICHAEL INHIBITORS, GABAPENTIN. PAST MEDICAL HISTORY: As mentioned above. PAST SURGICAL HISTORY: Left BKA,, right big toe amputation, , cystoscopy, cystourethroscopy with biopsy, right parapharyngeal tumor removed, injection of lumbosacral spine, creation of AV fistula, lens extraction in both eyes, ligation of oviducts, partial removal of the left 4th and 5th bones, radiation therapy, total thyroid lobectomy on the right side, cholecystectomy, and recently had left below-knee amputation. MEDICATIONS: The patient is on Tylenol 650 mg p.o. q. 6 hours p.r.n., B complex vitamin 1 tablet daily, collagenase ointment topical daily, famotidine 20 mg p.o. Wednesday, Wednesday, Wednesday, gabapentin 200 mg p.o. daily, hydromorphone 8 mg p.o. q. 3 hours p.r.n. for pain, Lantus 10 units subcutaneously p.m., insulin regular sliding scale, levothyroxine 125 mcg p.o. daily, lidocaine 5% topical patch topically daily, , methadone 15 mg p.o. q. 8 hours, midodrine 10 mg p.o. daily p.r.n., Zofran 4 mg p.o. q. 6 hours p.r.n., MiraLax 34 g p.o. daily, Senokot Plus 2 tablets p.o. b.i.d., vitamin B complex one p.o. daily. FAMILY HISTORY: Significant for father has diabetes; mother has diabetes; father has hypertension; paternal grandfather had heart attack. SOCIAL HISTORY: No smoking, alcohol rare, no drug use. REVIEW OF SYSTEMS: As per HPI. Rest of the review of systems is negative. Admission Exam Per Admitting Provider PHYSICAL EXAMINATION: GENERAL: The patient is somewhat frail looking, but not in acute distress. VITAL SIGNS: Temperature 37.2, pulse 96, respiratory rate 18, blood pressure was 102/56, currently 75/39, oxygen 100% on nasal cannula. HEENT: Pupils equal, round and reactive to light. Oral mucosa moist. NECK: No JVD or neck masses. CARDIOVASCULAR: S1 and S2 heard. Tachycardia. No murmurs. RESPIRATORY SYSTEM: Normal AP diameter. No accessory muscle use. No wheezing, no crackles. ABDOMEN: Soft, bowel sounds present, nontender, no distention. CENTRAL NERVOUS SYSTEM: Alert and oriented. No facial droop. Lack of sensation from below the central thorax. EXTREMITIES: Left below-knee amputation. SKIN: Unstageable sacral decubitus ulcers and also ulcer with black eschar seen on the left knee and also on the lateral aspect of the right foot. EXTREMITIES: No edema, erythema seen. Principal Dx & Hospital Course #1 = Principal Diagnosis (1) Severe sepsis with septic shock: per Dr. Parmar's notes with addendum: (1) Severe sepsis with septic shock: Plan: Transfer from [facility] with gram-negative bacteremia and hypotension She is a status post left AKA secondary to history of myelitis and finish the course of vancomycin on 1111 1022 and was in [facility] from [facility] at the end Complaint to have sweating and weakness Received intravenous fluid and also blood transfusion and has been on intravenous pressor resents to maintain blood pressure Blood and urine cultures have been negative in the hospital 04/23 Dialysis performed today Continue midodrine was given IV Zosyn and vancomycin--> d/c as patient transitioning to hospice discharge to homewith hospice services after inpatient hemodialysis (2) Gram-negative bacteremia, E coli Plan: diagnosed in [facility] (3) Sacral decubitus ulcer, stage IV: Plan: Has a stage IV sacral decubiti ulcers which seems to be infected Likely the source of bacteremia IV antibiotic as planned Surgery evaluation is done. Appreciate input and recommendation for debridement tomorrow Surgery will not be done as it could be too risky to do surgery at this time Recommendation was to continue with conservative management and the patient get's better and plan for surgery later She cannot lie on her sides 04/23 Continue methadone as needed for pain (4) ESRD (end stage renal disease) on dialysis: Plan: Management per #1 Anemia Likely secondary to end-stage renal disease and may be complicated by ongoing infection Globin is low on admission Received 2 units of blood transfusion and hemoglobin seems to be stable Drop in hemoglobin due to chronic disease and CKD 04/23 Hemoglobin remained stable overall 7-8 (5) CKD (chronic kidney disease): Plan: As above (6) Neuroendocrine tumor: Plan: Has metastatic neuroendocrine tumor Palliative care has been consulted: Patient to transition to hospice services at home (7) DMII (diabetes mellitus, type 2): Plan: Has been on SSI (8) Pathologic fracture of thoracic vertebrae: Plan: She was transferred to [facility] [place] recently for evaluation She is not a candidate for extensive surgery which will not change the course Has paraplegia DVT prophylaxis Pharmacologic prophylaxis on hold due to concern of bleeding Occult blood is negative heparin twice daily given CODE STATUS DNR/DNI Disposition Home with hospice tomorrow Discharge Exam General- oriented x 3, not in distress, speaks in sentences with no effort or accessory muscle use Eyes- anicteric Neck- no JVD Lungs- clear BS bilaterally, no rales Heart- normal rate, regular rhythm; no murmurs Abdomen- normal bowel sounds, nondistended, soft, nontender Extremities- no pretibial edema, no calf tenderness Neuro- alert, oriented x 3; no gross focal neurologic deficits Skin- warm & dry Updated Medication List Medication Instructions Recorded Confirmed Type levothyroxine 125 mcg tablet 125 mcg PO DAILYBB 03/15/21 04/18/22 History acetaminophen 325 mg capsule 650 mg PO Q6H PRN Pain 04/07/22 04/18/22 History (Tylenol) collagenase clostridium histo. 250 1 applic topical DAILY 04/07/22 04/18/22 History unit/gram topical ointment (Santyl) famotidine 20 mg tablet (Pepcid) 20 mg PO .Wed-Wed-Wed04/07/22 04/18/22 History gabapentin 100 mg capsule 200 mg PO DAILY 04/07/22 04/18/22 History insulin glargine 100 unit/mL 10 unit subcut QPM 04/07/22 04/18/22 History subcutaneous solution (Lantus U-100 Insulin) insulin regular human 100 unit/mL 1 sliding scale dose subcut 04/07/22 04/18/22 History injection solution (Humulin R USEASDIRECTD Regular U-100 Insulin) lidocaine 5 % topical patch 1 patch topical DAILY 04/07/22 04/18/22 History methadone 10 mg tablet 10 mg PO Q8H 04/07/22 04/18/22 History ondansetron HCl 4 mg tablet 4 mg PO Q6H PRN Nausea 04/07/22 04/18/22 History polyethylene glycol 3350 17 34 g PO DAILY 04/07/22 04/18/22 History gram/dose oral powder vitamin B complex and vitamin C 1 cap PO DAILY 04/07/22 04/18/22 History no.20-folic acid 1 mg capsule hydromorphone 4 mg tablet 8 mg PO .Q3HR PRN Pain 04/18/22 04/18/22 History methadone 5 mg tablet 5 mg PO Q8 04/18/22 04/18/22 History sennosides 8.6 mg-docusate sodium 2 tab-cap PO BID 04/18/22 04/18/22 History 50 mg tablet (Senna Plus) vitamin B complex-vitamin C-folic 1 tab PO DAILY 04/18/22 04/18/22 History acid 0.8 mg tablet (Ira-Umer) midodrine 10 mg tablet 10 mg PO TID@0800,1200,1700 14 04/23/22 Rx days #42 tabs Hospital Stay Data Consultations 04/18/22 20:03 ED Decision to Admit Stat 11/12/22 23:20 Consult Academic Interventionist Routine 04/19/22 01:08 Consult General Surgery Routine 04/19/22 01:36 Consult Wound Care Provider Routine 04/19/22 08:00 Consult Nephrology Routine 04/20/22 17:26 Consult Palliative Care Routine Diagnostic Imagining Performed 04/18/22 23:21 CT Abd and Pelvis [CT abd pelvis wo con] Urgent Pending Results Patient Have Any Pending Studies at Discharge: No Discharge Instructions Given to Patient (Per Discharging Provider) Hospice care services to continue with providing care at home. Total Time Total Time Spent Total Time Spent (In Minutes): <30 minutes
--- NOTE | 2022-04-23 16:57 | Hospitalist Progress Note ---
Date of Service April 23, 2022 Assessment & Plan (1) Severe sepsis with septic shock: Plan: per Dr. Parmar's notes with addendum: (1) Severe sepsis with septic shock: Plan: Transfer from [facility] with gram-negative bacteremia and hypotension She is a status post left AKA secondary to history of myelitis and finish the course of vancomycin on 1111 1022 and was in [facility] from [facility] at the end Complaint to have sweating and weakness Received intravenous fluid and also blood transfusion and has been on intravenous pressor resents to maintain blood pressure Blood and urine cultures have been negative in the hospital 04/23 Dialysis performed today Continue midodrine was given IV Zosyn and vancomycin--> d/c as patient transitioning to hospice discharge to homewith hospice services after inpatient hemodialysis (2) Gram-negative bacteremia, E coli Plan: diagnosed in [facility] (3) Sacral decubitus ulcer, stage IV: Plan: Has a stage IV sacral decubiti ulcers which seems to be infected Likely the source of bacteremia IV antibiotic as planned Surgery evaluation is done. Appreciate input and recommendation for debridement tomorrow Surgery will not be done as it could be too risky to do surgery at this time Recommendation was to continue with conservative management and the patient get's better and plan for surgery later She cannot lie on her sides 04/23 Continue methadone as needed for pain (4) ESRD (end stage renal disease) on dialysis: Plan: Management per #1 Anemia Likely secondary to end-stage renal disease and may be complicated by ongoing infection Globin is low on admission Received 2 units of blood transfusion and hemoglobin seems to be stable Drop in hemoglobin due to chronic disease and CKD 04/23 Hemoglobin remained stable overall 7-8 (5) CKD (chronic kidney disease): Plan: As above (6) Neuroendocrine tumor: Plan: Has metastatic neuroendocrine tumor Palliative care has been consulted: Patient to transition to hospice services at home (7) DMII (diabetes mellitus, type 2): Plan: Has been on SSI (8) Pathologic fracture of thoracic vertebrae: Plan: She was transferred to [facility] [place] recently for evaluation She is not a candidate for extensive surgery which will not change the course Has paraplegia DVT prophylaxis Pharmacologic prophylaxis on hold due to concern of bleeding Occult blood is negative heparin twice daily given CODE STATUS DNR/DNI Disposition Home with hospice tomorrow Admission and Anticipated Discharge Date Admission Date: April 18, 2022 Subjective ff up for ESRD, neuroendocrine tumor with mets, etc seen at HD unit sitting up, alert, not in distress oriented x 3 somewhat weak states she feels ok overall denies pain, dyspnea no other symptoms ok for discharge this afternoon Review of Systems Review of Systems: all noted and negative except for above Physical Exam Physical Exam: General- oriented x 3, not in distress, speaks in sentences with no effort or accessory muscle use Eyes- anicteric Neck- no JVD Lungs- clear BS bilaterally, no rales Heart- normal rate, regular rhythm; no murmurs Abdomen- normal bowel sounds, nondistended, soft, nontender Extremities- no pretibial edema, no calf tenderness Neuro- alert, oriented x 3; no gross focal neurologic deficits Skin- warm & dry Results & Data Results & Data ([facility]) Vital Signs (Past 12 Hours) Vital Signs Temp Pulse Pulse Resp BP BP Pulse Ox 04/23/22 13:35 37.0 C 89 16 127/64 95 04/23/22 11:30 37.0 C 89 127/64 04/23/22 11:17 75 101/62 04/23/22 11:15 85 79/44 L 04/23/22 11:00 87 94/49 L 04/23/22 10:18 73 104/70 04/23/22 10:45 87 90/50 L 04/23/22 10:30 87 97/47 L 04/23/22 10:15 90 75/50 L 04/23/22 10:03 87 111/54 L 04/23/22 09:50 89 92/47 L 04/23/22 10:00 88 78/45 L 04/23/22 09:45 89 76/41 L 04/23/22 09:30 86 107/58 L 04/23/22 09:25 86 99/50 L 04/23/22 09:08 37.1 C 93 H 04/23/22 07:40 36.8 C 77 16 99/61 L 95 O2 Del Method 04/23/22 13:35 04/23/22 11:30 04/23/22 11:17 04/23/22 11:15 04/23/22 11:00 04/23/22 10:18 04/23/22 10:45 04/23/22 10:30 04/23/22 10:15 04/23/22 10:03 04/23/22 09:50 04/23/22 10:00 04/23/22 09:45 04/23/22 09:30 04/23/22 09:25 04/23/22 09:08 04/23/22 07:40 Room Air all noted and reviewed including below
== END 2022-04-23 15:59 | disposition hospice, home (50) | DRG 871 ==
LOC: ED 18:45 → 1E 22:16 → SUATTDRO 22:16 → 1E 23:46 → 3W 04-21 19:03